=== PATIENT | female | born 1945 | race Caucasian/White ===

== ENCOUNTER 2020-01-28 11:00 | Inpatient (IN) | payer MEDICARE, OTHER ==
[~2020-01-28] VITALS: Ht 154.9 cm; Wt 88.5 kg
[~2020-01-28 11:00] MED LIST: BISACODYL 10 MG SUPP (DULCOLAX) PR PRN; DOCUSATE SODIUM 100 MG (COLACE) CAP PO PRN; ENOXAPARIN 40 MG/0.4 ML (LOVENOX) SYR SC SCH; FLEET ENEMA ADULT 1 EA BTL PR PRN; LACTULOSE SYRUP 10GM/15ML (ENULOSE) 30ML UDC PO PRN; LOPERAMIDE 2 MG (IMODIUM) TABLET PO PRN; diphenhydrAMINE 25 MG TAB (BENADRYL) PO PRN; guaiFENesin/CODEINE (ROBITUSSIN AC) 10ML UDC PO PRN
--- NOTE | 2020-01-28 11:00 | NUR ---
Pt admitted to room 232, with an admitting diagnosis of Critical Illness Myopathy from [facility], via w/c christy accompanied by christy enrique, PT/OT. CHAVO JEAN introduced to surroundings, call light, bed controls, phone, TV, temperature control, lights, meal times, smoking policy, visitor policy, side rail policy, bathrooms and showers. Patient Rights provided to patient in the handbook. CHAVO JEAN verbalizes understanding that [facility] is not responsible for the loss or damage to any personal effects or valuables that are kept in the patients posession during their hospitalization. The following Patient Care Plans were discussed with the pt: Discharge Planning, Impaired Mobility, Self Care Deficit, Potential for fall/injury. CHAVO JEAN verbalizes understanding of Interdisciplinary Patient Education. Patient and/or family were informed about the Rapid Response Team and its purpose. Patient received Patient Rights Booklet, which includes Privacy Act Statement and Data Collection Information Summary.
--- NOTE | 2020-01-28 12:25 | Occupational Therapy Eval ---
OT Evaluation-General/PLF Medical Diagnosis Admission Date Jan 28, 2020 at 11:00 Medical Diagnosis: critical illness myopathy Onset Date: Dec 09, 2019 Therapy Diagnosis Therapy Diagnosis: Critical illness myopathy Referral Physician: Lilly Henriquez Reason: Evaluation/Treatment Medical History Pertinent Medical History: Arthritis, GERD, HTN Additional Medical History breast cancer, anxiety/depression, hyperthyroidism, malignant neoplasm, multiple lung nodules, R breast lumpectomy Current History 12/09/2019 diagnosed with COVID-19, Admitted to [facility] 12/10 with c/o SOB, diarrhea, loss of appetite, productive cough. 12/14 intubated. Transferred to [place] for vent weaning, extubated 12/28/2019. Pt transferred to [facility] 02/08/2020 for continued medication management and skilled therapies. Social History Home: Single Level Current Living Status: Spouse Entry Into Home: Stairs With Railing Steps Into Home: 3 ADL-Prior Level of Function SCALE: Activities may be completed with or without assistive devices. 6-Zrmhziwsgp-heseheo completes the activity by him/herself with no assistance from a helper. 5-Set-up or Clean-up Assistance-helper sets up or cleans up; patient completes activity. [place] assists only prior to or following the activity. 4-Supervision or Touching Assistance-helper provides verbal cues and/or touching/steadying and/or contact guard assistance as patient completes activity. Assistance may be provided throughout the activity or intermittently. 3-Partial/Moderate Assistance-helper does LESS THAN HALF the effort. [place] lifts, holds or supports trunk or limbs, but provides less than half the effort. 2-Substantial/Maximal Assistance-helper does MORE THAN HALF the effort. [place] lifts or holds trunk or limbs and provides more than half the effort. 5-Sncrmglwv-tlvmhx does ALL the effort. Patient does none of the effort to complete the activity. Or, the assistance of 2 or more helpers is required for the patient to complete the activity. If activity was not attempted, code reason: 7-Patient Refused. 9-Not Applicable-not attempted and the patient did not perform the activity before the current illness, exacerbation or injury. 10-Not Attempted due to Environmental Limitations-(lack of equipment, weather restraints, etc.). 88-Not Attempted due to Medical Conditions or Safety Concerns. ADL PLOF Comments Pt indicates she was independent with all ADLS and functional mobility at PLOF without AD/AE. She indicates she owns a bath chair for the tub but prefers to get down into the bath and soak. 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 Pt indicates pain in back durin g session but does not verbalize. Mental Status/Objective Patient Orientation: Person, Place, Time, Situation Current Glasses/Contacts: No Hearing Aids: No Dentures/Partials: No Hand Dominance: Right Upper Extremity ROM BUE shoulder flexion to approx 90 degrees Upper Extremity Coordination WFL Upper Extremity Sensation WFL, pt denies tingling/numbness Upper Extremity Strength grossly 3/5 BUES ADL-Treatment Eating (QC): 6 (Pt reports independent with lunch.) Oral Hygiene (QC): 5 (based on clinical judgement, pt would require set up assistance with task.) Shower/Bathe Self (QC): 2 (Pt washed UEs, chest and abdomen, required assistance with periarea, LEs, and buttocks.) Upper Body Dressing (QC): 3 (Min A donning/doffing puller out shirt.) Lower Body Dressing (QC): 1 (total assist donning/doffing pants/underwear at bed level) On/Off Footwear (QC): 1 (pt required total assist donning/doffing footwear.) Toileting Hygiene (QC): 1 (based on clinical judgement, pt would require assistance managing clothing and performing hygiene.) Other Treatments 1110--1120: OT evaluation complete, OT educated pt on purpose and benefit of OT, she verbalized understanding. Pt provided information about PLOF and home set up and participated in UE screen. 1995-1230: OT/PT cotreat due to skill of 2 clinicians required which a ict support technicians could not perform in order to coordinate UE/LE with tasks, and due to pt's limitations in functional strength, endurance, mobility. OT focused on UE placement, cues for sequencing and safety and assistance with transfers while PT focused on LE placement, gross overall movements, and transfers. PT assisted pt with stand at parallel bars, x2 trials. Pt able to lift buttocks from chair but unable to fully stand. Pt then self-propelled w/c from therapy gym to her room, assistance with turning w/c, rest breaks along the way. Pt completed slide board transfer from w/c to bed, then assisted supine. Post Tx, pt laying in bed, call light in reach and all needs met. [id number] OT/PT cotreat due to skill of 2 clinicians required which a ict support technicians could not perform in order to coordinate UE/LE with tasks, and due to pt's limitations in functional strength, endurance, mobility. OT focused on ADLs, UE placement, cues for sequencing and safety and assistance with transfers while PT focused on LE placement, gross overall movements, and transfers. Pt transferred supine to sit EOB, then completed SB transfer to recliner. Pt completed upper body dressing and sponge bath of upper body, then transferred back to bed via SB. Pt then performed lower body bathing and dressing at bed level. OT assisted pt with washing hair using shower cap. Post tx, pt laying in bed, call light in reach and all needs met. Slide board transfers Max A, supine <-> sit max A, sit <-> stand max A, SPT max A. Education OT Patient Education: Correct positioning, Energy conservation, Modified ADL techniques, Progress toward Goal/Update tx plan, Purpose of tx/functional activities, Rehab process, Safety issues, Transfer techniques Teaching Recipient: Patient Teaching Methods: Discussion Response to Teaching: Verbalize Understanding OT Short Term Goals Short Term Goals Time Frame: Feb 09, 2020 Toileting hygiene: 3 Lower body dressin Putting on/taking off footwear: 3 OT Deburring Technician Goals Deburring Technician Goals Time Frame: Feb 18, 2020 Eating (QC): 6 Oral Hygiene (QC): 6 Toileting Hygiene (QC): 6 Shower/Bathe Self (QC): 6 Upper Body Dressing (QC): 6 Lower Body Dressing (QC): 6 On/Off Footwear (QC): 6 Additional Goals: 1-Demonstrate ADL Tasks, 2-Verbalize Understanding, 3- ImproveStrength/Renny 1=Demonstrate adherence to instructed precautions during ADL tasks. 2=Patient will verbalize/demonstrate understanding of assistive devices/modifications for ADL. 3=Patient will improve strength/tolerance for activity to enable patient to perform ADL's. OT Education/Plan Problem List/Assessment Assessment: Decreased Activ Tolerance, Decreased UE Strength, Impaired Bed Mo bility, Impaired Funct Balance, Impaired I ADL's, Impaired Self-Care Skills Discharge Recommendations Plan/Recommendations: Continue POC Treatment Plan/Plan of Care Patient would benefit from OT for education, treatment and training to promote independence in ADL's, mobility, safety and/or upper extremity function for ADL's. Plan of Care: ADL Retraining, Functional Mobility, Group Exercise/Act as Ind, UE Funct Exercise/Act Treatment Duration: Feb 18, 2020 Frequency: At least 5 of 7 days/Wk (IRF) Estimated Hrs Per Day: 1.5 hours per day Agreement: Yes Rehab Potential: Fair Time/GCodes Start Time: 11:10 (0013-0850) Stop Time: 13:55 ([id number]) Total Time Billed (hr/min): 90 Billed Treatment Time 9405-5505 OT eval (10'), 2825-3025 OT/PT cotreat (40') 1, EVM (10'), FA 2 (40') 1334-0606 OT/PT cotreat (40') 1, ADL 3 (40') ISIDRO MACIEL OT Jan 28, 2020 12:25
[2020-01-28 12:37] VITALS: BP 135/66
--- NOTE | 2020-01-28 13:04 | PM&R Post Admission Assessment ---
PM&R Date of Visit: Jan 28, 2020 Time of Visit: 12:00 History of Present Illness CC: Critical illness debility from COVID-19 HPI: This is a 74yoWF clinic patient of Dr Bradley Faith who presents to the IRF in need of aggressive PT and OT to regain function of ambulation and ADL's in order to return home to live independently with her . PLOF was independent and no use of O2. She has been weaned from O2 from [place] for the past 1 week but noted during exertion with therapies her O2 sat decreased to 78%. I have reviewed Ronda chart and spoke to Dr Foster. Ronda note: As per HPI by Dr Alfred, "Fadumo Hua a 74 y.o.Whitefemalea patient of Prosper Faith DOwho is being admitted through the emergency room with chief complaint of SOB. Patient is a 74-year-old female with past medical history of essential hypertension, obesity, Graves' disease, paroxysmal atrial tachycardia, degenerative joint disease. Patient was diagnosed withCOVIDinfection on 12/09/2019. For the past 3 to 4 days she reports decreased appetite along withwatery diarrhea. She has cough productive of yellow phlegm along with shortness of breath that hasbeen progressively worsening.EMS noted that her SpO2 was in the 70s when they arrived.She denies fever, chills, nausea, vomiting, chest pain, abdominal pain, loss of consciousness, ground-level fall, dysuria, dizziness. States she has been taking all his medications prescribed. She lives with her at home currently also has Covid infection. She is able to perform ADLs without any assistanceat baseline. Denies history of diabetes mellitus noncritical disease. She does not wear oxygen at baseline. The patient got transferred to ICU on 12/12 She got intubated on 12/14 When I assumed service on 12/21, preparations had been made for her transfer to [place] She is being transferred there today in stable condition on the ventilator discussed withDr Lyles Pneumonia due to COVID-19 virus Active Problems: Paroxysmal atrial tachycardia Graves disease - methimazole Rx Obesity (BMI 30-39.9) Essential hypertension Acute respiratory failure KALEE (acute kidney injury) Normal anion gap metabolic acidosis Acute diarrhea Lactic acid acidosis Chronic heart failure with preserved ejection fraction 2018 novel coronavirus disease (COVID-19) DC meds: START taking these medications chlorhexidine gluconate0.12 % Mouthwash 5 mL by Mouth/Throat route 2 times daily. Signed by: Bacilio Gallegos MD Quantity: Refills: 0 Dexamethasone Sod Phosphate-PF10 mg/mL Solution Commonly known as: DECADRON Inject 0.6 mL (6 mg) by intraveous injection daily. Start taking on: December 25, 2019 Signed by: Bacilio Gallegos MD Quantity: Refills: 0 mg/0.4 mL injection Commonly known as: LOVENOX Inject 0.4 mL (40 mg) by subcutaneous injection every 12 hours. Signed by: Bacilio Gallegos MD Quantity: Refills: 0 ixtrgrwlkp84 mg/mL Solution Commonly known as: LASIX Inject 4 mL (40 mg) by intraveous injection two times daily, 7 hours apart for 1 day. Signed by: Bacilio Gallegos MD Quantity: 1 mL Refills: 0 Replaces: furosemide 20 mg tablet hswspvpeR97 mg/4 mL (5 mg/mL) Syringe Commonly known as: NORMODYNE/TRANDATE Inject 2 mL (10 mg) by intraveous injection every 4 hours as needed (SBP greater than 160). Signed by: Bacilio Gallegos MD Quantity: Refills: 0 lactobacillus rhamnosus (GG)10 billion cell Capsule Commonly known as: CULTURELLE Take 1 Capsule by mouth 2 times daily. Signed by: Bacilio Gallegos MD Quantity: Refills: 0 loperamide2 mg capsule Commonly known as: IMODIUM Take 1 Capsule (2 mg) by mouth 4 times daily as needed for Diarrhea/Loose Stools. Signed by: Bacilio Gallegos MD Quantity: Refills: 0 melatonin3 mg Tablet Take 1 Tablet (3 mg) by mouth 2 times daily. Signed by: Bacilio Gallegos MD Quantity: Refills: 0 naloxone0.4 mg/mL Solution Commonly known as: NARCAN Inject 0.25 mL (0.1 mg) by intraveous injection see administration instructions. Signed by: Bacilio Gallegos MD Quantity: Refills: 0 ondansetron4 mg/2 mL Solution Commonly known as: ZOFRAN Inject 2 mL (4 mg) by intraveous injection every 6 hours as needed for Nausea/Emesis. Signed by: Bacilio Gallegos MD Quantity: Refills: 0 oxyCODONE5 mg tablet Commonly known as: ROXICODONE Take 1 Tablet (5 mg) by mouth every 8 hours as needed for Pain. Max Daily Amount: 15 mg Signed by: Bacilio Gallegos MD Quantity: Refills: 0 ibunxhvntxdo61 mg Recon Soln Commonly known as: PROTONIX Inject 40 mg by intraveous injection daily. Start taking on: December 25, 2019 Signed by: Bacilio Gallegos MD Quantity: Refills: 0 prochlorperazine yttvdnr74 mg tablet Commonly known as: COMPAZINE Take 1 Tablet (10 mg) by mouth every 6 hours as needed for Nausea/Emesis. Signed by: Bacilio Gallegos MD Quantity: Refills: 0 xyihkoii70 mg/mL Emulsion Commonly known as: DIPRIVAN Inject 0-5.999 mg/min by intraveous injection continuously. Signed by: Bacilio Gallegos MD Refills: 0 mkibrxkelO62 mg tablet Commonly known as: VIAGRA Take 1 Tablet (25 mg) by mouth 2 times daily. Signed by: Bacilio Gallegos MD Quantity: Refills: 0 w CHANGE how you take these medications lslyvddxyt953 mg tablet Commonly known as: SKELAXIN What changed: See the new instructions. Take 1 Tablet (800 mg) by mouth 3 times daily as needed for Spasm. Signed by: Bacilio Gallegos MD Quantity: Refills: 0 CONTINUE taking these medications cholecalciferol (Vitamin D3)25 mcg (1,000 unit) Capsule Commonly known as: VITAMIN D3 Take 5,000 Units by mouth daily . Refills: 0 colestipoL1 gram tablet Commonly known as: COLESTID TAKE 1 TABLET BY MOUTH TWICE DAILY Signed by: Prosper Faith DO Quantity: 180 Tablet Refills: 2 mcawuohirpqsmfl70 mg tablet Commonly known as: FLEXERIL Take 1 Tablet (10 mg) by mouth 2 times daily. Signed by: Prosper Faith DO Quantity: 60 Tablet Refills: 5 Mofnryhnj757 mg tablet Take 600 mg by mouth 3 times daily. 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) Alcohol Use: Denies Use Smoking Status: Never a Smoker Past Medical History Surgeries: Abdominal, Appendectomy, Breast, Section, Eye Surgery, Tonsillectomy Respiratory: Pneumonia COVID-19 12/11/19 Cardiac: High Cholesterol, Hypertension Genitourinary: Bladder Infection Gastrointestinal: Gastroesophageal Reflux Musculoskeletal: Arthritis, Chronic Back Pain Endocrine: Hypothyroidsim Cancer: Breast What Type of Treatment Did You: Surgical Intervention Psychosocial: Anxiety, Depression Self Care: Independent Functional Cognition: Independent 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 (Pt reports independent with lunch.) PM&R Allergy/Meds/Data Review Allergies Coded Allergies: Sulfa (Sulfonamide Antibiotics) (Verified Allergy, Unknown, 01/28/20) amoxicillin (Verified Allergy, Unknown, 01/28/20) clavulanic acid (Verified Allergy, Unknown, 01/28/20) codeine (Verified Allergy, Unknown, 01/28/20) diazepam (Verified Allergy, Unknown, 01/28/20) hydrocodone (Verified Allergy, Unknown, 01/28/20) iodine (Verified Allergy, Unknown, 01/28/20) sulfamethoxazole (Verified Allergy, Unknown, 01/28/20) trimethoprim (Verified Allergy, Unknown, 01/28/20) Uncoded Allergies: MSG (Adverse Reaction, Severe, Diarrhea, 01/28/20) abdominal cramping, severe diarrhea Home Medications Scheduled Cholecalciferol (Vitamin D3) (Vitamin D3), 125 MCG PO DAILY, (Reported) Cyanocobalamin (Vitamin B-12) (Vitamin B-12), 1,000 MCG PO DAILY, (Reported) Folic Acid/Vitamin B Comp W-C (Nephro-Arben Tablet), 0.8 MG PO DAILY, (Reported) Gabapentin (Neurontin), 600 MG PO TID, (Reported) Lactobacillus Acidophilus/Pect (Acidophilus-Pectin Capsule), 2 EACH PO BID, (Reported) Lidocaine (Lidocaine 5% Patch), 1 EACH TP Q12H, (Reported) Nifedipine (Procardia Xl), 30 MG PO DAILY, (Reported) Pantoprazole Sodium (Protonix), 40 MG PO BID, (Reported) Sertraline HCl (Sertraline HCl), 50 MG PO HS, (Reported) Sildenafil Citrate (Revatio), 10 MG PO BID, (Reported) Scheduled PRN Acetaminophen (Acetaminophen), 650 MG RC Q6H PRN for PAIN-MILD (1-4) OR TEMPATURE, (Reported) Hydrocortisone Acetate (Anucort-Hc), 25 MG RC Q8H PRN for HEMMORRHOID DISCOMFORT, (Reported) Oxycodone Hcl (Oxyir Tablet), 5 MG PO Q8H PRN for PAIN-SEVERE (8-10), (Reported) Polyvinyl Alcohol/Povidone (Artificial Tears Drops), 2 DROPS OU PRN PRN for DRY EYES, (Reported) Sennosides/Docusate Sodium (Senna S Tablet), 1 EACH PO DAILY PRN for CONSTIPATION-6TH LINE, (Reported) Current Medications Current Medications Reviewed Review of Systems Constitutional: see HPI, dizziness, malaise, weakness EENTM: no symptoms reported Respiratory: dyspnea on exertion, short of breath Cardiovascular: no symptoms reported Gastrointestinal: no symptoms reported Genitourinary: no symptoms reported Musculoskeletal: back pain Skin: no symptoms reported Psychiatric/Neurological: Anxiety, Depressed All Other Systems Reviewed Negative Unless Noted: Yes Physical Exam Physical Exam Vital Signs Vital Signs - First Documented 01/28/20 12:37 Temp 37.1 Pulse 116 Resp 20 B/P (MAP) 135/66 (89) Pulse Ox 94 O2 Delivery Room Air Capillary Refill : Height, Weight, BMI Height: '" Weight: lbs. oz. kg; BMI Method: General Appearance: No Apparent Distress, WD/WN, Chronically ill Eyes: Bilateral Eye Normal Inspection, Bilateral Eye PERRL HEENT: PERRL/EOMI, Normal ENT Inspection, Pharynx Normal Neck: Full Range of Motion, Normal Inspection, Non Tender, Supple, Carotid Bruit Respiratory: Chest Non Tender, Lungs Clear, No Accessory Muscle Use, No Respiratory Distress, Decreased Breath Sounds Cardiovascular: Regular Rate, Rhythm, No Edema, No Gallop, No JVD, No Murmur, Normal Peripheral Pulses Gastrointestinal: Normal Bowel Sounds, No Organomegaly, No Pulsatile Mass, Non Tender, Soft Back: Normal Inspection, No CVA Tenderness, No Vertebral Tenderness Extremity: Normal Capillary Refill, Normal Inspection, Normal Range of Motion, Non Tender, No Calf Tenderness, No Pedal Edema Neurologic/Psychiatric: Alert, Oriented x3, Normal Mood/Affect, moving consultant II-XII Norm as Tested, Motor Weakness (3/5 lower extremities, 4/5 upper) Skin: Normal Color, Warm/Dry Lymphatic: No Adenopathy PM&R Medical Assessment & Plan REHAB/MEDICAL ASSESSMENT AND PLAN: REHAB IMPAIRMENT GROUP: Myopathy ETIOLOGIC DIAGNOSIS: Myopathy The comorbidities that impact the patients function and/or functional outcome by: severe lower extremity myopathy, hypoxia with exertion, advanced age REHAB PLAN: The patient is being admitted to our comprehensive inpatient rehabilitation facility and can tolerate the intensity of service consisting of at least: 180 minutes of therapy a day, 5 out of 7 days a week Rehab treatment will consist of: PT OT will focus on regaining function and ambulatory skills with increase ADL ability in order to return home The patient/family has a good understanding of our discharge process and will benefit from an interdisciplinary inpatient rehabilitation program. The patient has potential to make improvement and is in need of at least two of the following multidisciplinary therapies including but not limited to physical, occupational, speech, and prosthetics and orthotics. Additionally the patient will need services from respiratory, nutritional services, wound care, psychology, etc. (Customize this to each patient). Given the patients complex condition and risk of further medical complications, rehabilitation services cannot be safely or effectively provided at a lower level of care such as a [facility] facility. BARRIERS TO DISCHARGE: Weakness ESTIMATED LOS: 10 days DISPOSITION: Home RELEVANT CHANGES SINCE PREADMISSION SCREENING: I have compared the patients medical and functional status at the time of the preadmission screening and there are: no changes PROGNOSIS: Good REHABILITATION GOALS: 1.PT OT will focus on regaining function and ambulatory skills with increase ADL ability in order to return home All the above goals were reviewed with the patient and he/she is in agreement. By signing this document, I acknowledge that I have personally performed a full physical examination on this patient within 24 hours of admission to this inpatient rehabilitation facility and have determined the patient to be able to tolerate the above course of treatment at an intensive level for a reasonable period of time. I will be completing a detailed individualized Plan of Care for this patient by day #4 of the patients stay based upon the Preadmission Screen, the Post-Admission Evaluation, and the therapy evaluations. Admission Dx/Comorbidities: (1) Myopathy ICD Codes: G72.9 - Myopathy, unspecified (2) COVID-19 ICD Codes: U07.1 - COVID-19 (3) GERD (gastroesophageal reflux disease) ICD Codes: K21.9 - Gastro-esophageal reflux disease without esophagitis (4) Hypoxia ICD Codes: R09.02 - Hypoxemia (5) HX: breast cancer ICD Codes: Z85.3 - Personal history of malignant neoplasm of breast (6) Anxiety ICD Codes: F41.9 - Anxiety disorder, unspecified (7) Depression ICD Codes: F32.9 - Major depressive disorder, single episode, unspecified Assessment/Plan Assessment and Plan Assess & Plan/Chief Complaint Assessment: Critical illness debility from COVID-19 dx 12/11/19 OA h/o breast cancer Allergic rhinitis HTN GERD Depression Lung nodules [facility] 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 since usp stable Plan: IRF protocol Wean O2 Pain meds BM regimen JARRELL HURD DO Jan 28, 2020 13:04
--- NOTE | 2020-01-28 13:10 | Physical Therapy Evaluation ---
PT Evaluation-General Medical Diagnosis Admission Date Jan 28, 2020 at 11:00 Medical Diagnosis: critical illness myopathy Onset Date: Dec 09, 2019 Therapy Diagnosis Therapy Diagnosis: impaired mobility, strength, endurance Referral Physician: Mely Carr DO Reason for Referral: Evaluation/Treatment Medical History Pertinent Medical History: Arthritis, GERD, HTN Reviewed History: Yes Social History Home: Single Level Current Living Status: Spouse Entry Into Home: Stairs With Railing PT Steps Into Home: 3 Prior Prior Level of Function SCALE: Activities may be completed with or without assistive devices. 4-Dasxmwgeui-ttmyzfn completes the activity by him/herself with no assistance from a helper. 5-Set-up or Clean-up Assistance-helper sets up or cleans up; patient completes activity. [place] assists only prior to or following the activity. 4-Supervision or Touching Assistance-helper provides verbal cues and/or touching/steadying and/or contact guard assistance as patient completes activity. Assistance may be provided throughout the activity or intermittently. 3-Partial/Moderate Assistance-helper does LESS THAN HALF the effort. [place] lifts, holds or supports trunk or limbs, but provides less than half the effort. 2-Substantial/Maximal Assistance-helper does MORE THAN HALF the effort. [place] lifts or holds trunk or limbs and provides more than half the effort. 6-Vreklurzm-rqefkc does ALL the effort. Patient does none of the effort to complete the activity. Or, the assistance of 2 or more helpers is required for the patient to complete the activity. If activity was not attempted, code reason: 7-Patient Refused. 9-Not Applicable-not attempted and the patient did not perform the activity before the current illness, exacerbation or injury. 10-Not Attempted due to Environmental Limitations-(lack of equipment, weather restraints, etc.). 88-Not Attempted due to Medical Conditions or Safety Concerns. Bed Mobility: 6 Transfers (B,C,W/C): 6 Gait: 6 Stairs: 6 Indoor Mobility (Ambulation): Independent Stairs: Independent PT Evaluation-Current Subjective Patient in WC pre tx, agrees to PT, has no complains of pain at rest, will be co-treating with OT for part of tx due to poor patient mobility, strength, endurance, safety and decrease risk of falls, coordinate UE and LE during activity. Patient's O2 was measured and was 85% but came up to 92% with purse lip breathing. Pt/Family Goals to be independent at home Objective Patient Orientation: Person, Place, Situation ROM/Strength ROM Lower Extremities WNL Strength Lower Extremities LLE (hip flexion 3-/5, knee flexion 3/5, knee extension 3-/5, dorsiflexion 3/5), RLE (hip flexion 3-/5, knee flexion 3/5, knee extension 3-/5, dorsiflexion 3/5) Sensory Hearing: Functional Hand Dominance: Right Sensation Right Lower Extremit: Intact Sensation Left Lower Extremity: Intact Transfers Roll Left & Right (QC): 3 Sit to Lying (QC): 2 Lying to Sitting/Side of Bed(Q: 2 Sit to Stand (QC): 2 Chair/Hcv-je-Kuldd Xfer(QC): 2 Toilet Transfer (QC): 2 Car Transfer (QC): 1 Patient performs rolling with min assist, supine <-> sit max assist, sit <-> stand and transfers with max assist. Patient can perform either a stand pivot or sliding board transfer with max assist. Stood in the parallel bars x2 with max assist for only a few seconds each time. Gait Does the Patient Walk?: No and Walking Goal IS indicated Walk 10 feet (QC): 88 Walk 50 ft with 2 Turns(QC): 88 Walk 150 ft (QC): 88 Walking 10ft/uneven surface-QC: 88 Wheelchair Training Does the Pt Use a Wheelchair?: Yes Distance: 50'x2 Wheel 50 ft with 2 turns (QC): 3 Wheel 150 ft (QC): 88 Type of Wheelchair: Manual Stairs 1 Step (curb) (QC): 88 4 Steps (QC): 88 12 Steps (QC): 88 Balance Sitting Static: Fair Sitting Dynamic: Fair Standing Static: Poor Standing Dynamic: Poor Picking up an Object (QC): 88 Assessment/Needs Patient in bed post tx with nurse call, phone, tray, all needs met. Patient has very weak LE's and trunk, outside of therapy she will need a betsey or sit to stand for transfers. Rehab Potential: Fair PT Short Term Goals Short Term Goals Time Frame: Feb 04, 2020 Roll Left & Right: 4 Sit to lyin Lying to sitting on side of be: 3 Sit to stand: 3 Chair/kjw-ns-lopfk transfer: 3 Walk 10 feet: 3 PT Assisted Goals Joint Finisher Goals PT Assisted Goals Time Frame: Feb 18, 2020 Roll Left & Right (QC): 6 Sit to Lying (QC): 4 Lying-Sitting on Side/Bed(QC): 4 Sit to Stand (QC): 3 (Shelby) Chair/Nxy-qf-Zvbhe Xfer(QC): 3 (Shelby) Toilet Transfer (QC): 3 (Shelby) Car Transfer (QC): 3 (Shelby) Does the Patient Walk: No and Walking Goal IS indicated Walk 10 feet (QC): 3 Walk 50ft with 2 Turns (QC): 3 Walk 150 ft (QC): 88 Walking 10ft on Uneven Surface: 88 1 Step (curb) (QC): 88 4 Steps (QC): 88 12 Steps (QC): 88 Picking up an Object (QC): 88 Wheel 50 feet with 2 turns (QC: 6 Wheel 150 feet: 6 PT Plan Problem List Problem List: Activity Tolerance, Functional Strength, Safety, Balance, Gait, Transfer, Bed Mobility, ROM Treatment/Plan Treatment Plan: Continue Plan of Care Treatment Plan: Bed Mobility, Education, Functional Activity Renny, Functional Strength, Group Therapy, Gait, Safety, Therapeutic Exercise, Transfers Treatment Duration: Feb 18, 2020 Frequency: At least 5 of 7 days/Wk (IRF) Estimated Hrs Per Day: 1.5 hours per day Patient and/or Family Agrees t: Yes Safety Risks/Education Patient Education: Transfer Techniques, Correct Positioning, W/C Management, Safety Issues Teaching Recipient: Patient Teaching Methods: Demonstration, Discussion Response to Teaching: Reinforcement Needed Discharge Recommendations Plan Patient will perform bed mobility and transfer training, balance and endurance training, functional strengthening, stair training, gait training, and education, to improve functional mobility and independence at home. Therapy Discharge Recommendati: Scheduled Assistance, Home & Family Time/GCodes Time In: 1100 Time Out: 1200 Total Billed Treatment Time: 50 Total Billed Treatment 1 visit EVM 10' FA 40' (only charge 2 units) PT eval from [id number], OT eval from [id number], co-treat from [id number]. PT performed bed mobility and transfers, WC mobility, OT performed UE positioning and safety, assist with transfers. MAYTE BENAVIDEZ PT Jan 28, 2020 13:10
[2020-01-28] MEDS ORDERED: LIDO700A45 TP (13:53)
[2020-01-28] MEDS ORDERED: CALC-250 PO (13:53)
[2020-01-28] MEDS ORDERED: OXC5T PO (13:53)
[2020-01-28] MEDS ORDERED: NIFE30TA2 PO (13:53)
[2020-01-28] MEDS ORDERED: POLY15DR14 OU (13:53)
[2020-01-28] MEDS ORDERED: CYAN-41 PO (13:53)
[2020-01-28] MEDS ORDERED: LACT1CAP7 PO (13:53)
[2020-01-28] MEDS ORDERED: PANT40TA2 PO (13:53)
[2020-01-28] MEDS ORDERED: FOLI0.8T2 PO (13:53)
[2020-01-28] MEDS ORDERED: HYDR25SU8 RC (13:53)
[2020-01-28] MEDS ORDERED: SENN-145 PO (13:53)
[2020-01-28] MEDS ORDERED: SILD20TA PO (13:53)
[2020-01-28] MEDS ORDERED: SERT50TA9 PO (13:53)
[2020-01-28] MEDS ORDERED: GABA300C PO (13:53)
[2020-01-28] MEDS ORDERED: ACET650S15 RC (13:53)
--- NOTE | 2020-01-28 13:58 | NUR ---
THE MED REC HAS BEEN ENTERED USING THE DISCHARGE ORDERS FROM [facility]. AFTER MEDICATIONS ARE CONTINUED I WILL SPEAK WITH THE PT AND MAKE ANY CHANGES TO THE MED REC/NOTES NEEDED
--- NOTE | 2020-01-28 14:11 | Physical Therapy Daily Note ---
PT Daily Note-Current Subjective Patient in bed pre tx, agrees to PT, has no complaints of pain, will be co- treating with OT due to poor patient mobility, strength, endurance, sitting balance, safety and decrease fall risk, coordinate UE and LE during activity. Appearance Patient in bed post tx with nurse call, phone, tray, all needs met. Mental Status Patient Orientation: Person, Place, Situation Transfers SCALE: Activities may be completed with or without assistive devices. 6-Wxtnofqkij-oixqcns completes the activity by him/herself with no assistance from a helper. 5-Set-up or Clean-up Assistance-helper sets up or cleans up; patient completes activity. [place] assists only prior to or following the activity. 4-Supervision or Touching Assistance-helper provides verbal cues and/or touching/steadying and/or contact guard assistance as patient completes activity. Assistance may be provided throughout the activity or intermittently. 3-Partial/Moderate Assistance-helper does LESS THAN HALF the effort. [place] lifts, holds or supports trunk or limbs, but provides less than half the effort. 2-Substantial/Maximal Assistance-helper does MORE THAN HALF the effort. [place] lifts or holds trunk or limbs and provides more than half the effort. 8-Tdgathahn-hobkpl does ALL the effort. Patient does none of the effort to complete the activity. Or, the assistance of 2 or more helpers is required for the patient to complete the activity. If activity was not attempted, code reason: 7-Patient Refused. 9-Not Applicable-not attempted and the patient did not perform the activity before the current illness, exacerbation or injury. 10-Not Attempted due to Environmental Limitations-(lack of equipment, weather restraints, etc.). 88-Not Attempted due to Medical Conditions or Safety Concerns. Roll Left & Right (QC): 3 Sit to Lying (QC): 2 Lying to Sitting/Side of Bed(Q: 2 Chair/Hcb-zr-Tofkw Xfer(QC): 2 Patient supine to sit and then slide board transfer to recliner, bathed upperbody, slide board back to bed, sit to supine and then remove pants and bathe lower body and then put brief back on. Treatments PT worked on bed mobility and transfers, assist with positioning and safety during bathing, OT worked on bathing and dressing and UE positioning and safety during activity. Assessment Current Status: Fair Progress slightly improved sling board transfer but still max assist PT Short Term Goals Short Term Goals Time Frame: Feb 04, 2020 Roll Left & Right: 4 Sit to lyin Lying to sitting on side of be: 3 Sit to stand: 3 Chair/beb-hs-ytirt transfer: 3 Walk 10 feet: 3 PT Senior Care Goals Photovoltaic Installer Goals PT Senior Care Goals Time Frame: Feb 18, 2020 Roll Left & Right (QC): 6 Sit to Lying (QC): 4 Lying-Sitting on Side/Bed(QC): 4 Sit to Stand (QC): 3 (Shelby) Chair/Pwt-lm-Ddhmb Xfer(QC): 3 (Shelby) Toilet Transfer (QC): 3 (Shelby) Car Transfer (QC): 3 (Shelby) Does the Patient Walk: No and Walking Goal IS indicated Walk 10 feet (QC): 3 Walk 50ft with 2 Turns (QC): 3 Walk 150 ft (QC): 88 Walking 10ft on Uneven Surface: 88 1 Step (curb) (QC): 88 4 Steps (QC): 88 12 Steps (QC): 88 Picking up an Object (QC): 88 Wheel 50 feet with 2 turns (QC: 6 Wheel 150 feet: 6 PT Plan Problem List Problem List: Activity Tolerance, Functional Strength, Safety, Balance, Gait, Transfer, Bed Mobility, ROM Treatment/Plan Treatment Plan: Continue Plan of Care Treatment Plan: Bed Mobility, Education, Functional Activity Renny, Functional Strength, Group Therapy, Gait, Safety, Therapeutic Exercise, Transfers Treatment Duration: Feb 18, 2020 Frequency: At least 5 of 7 days/Wk (IRF) Estimated Hrs Per Day: 1.5 hours per day Patient and/or Family Agrees t: Yes Safety Risks/Education Patient Education: Transfer Techniques, Correct Positioning, Safety Issues Teaching Recipient: Patient Teaching Methods: Demonstration, Discussion Response to Teaching: Reinforcement Needed Time/GCodes Time In: 1315 Time Out: 1355 Total Billed Treatment Time: 40 Total Billed Treatment 1 visit FA 40' MAYTE BENAVIDEZ PT Jan 28, 2020 14:11
--- NOTE | 2020-01-28 14:29 | ST Cognitive Linguistic Eval ---
Speech Evaluation-General Medical Diagnosis critical illness myopathy Onset Date: Dec 09, 2019 Therapy Diagnosis Therapy Diagnosis: Cognitive-communication Referral Referring Physician: Dr. Carr Medical History Pertinent Medical History: Arthritis, GERD, HTN Reviewed History: Yes Social History Current Living Status: Spouse Speech PLF-Current Status Prior Level of Function Patient lived at home with her where she was independent with all of her daily needs prior to her illness. Subjective Patient was pleasant and cooperative with the cognitive assessment. Language Eval: Auditory Comprehends Simple Yes/No Ques: Functional Indent/Objects Multiple Pinon: Functional Ident/Pics in Multiple Pinon: Functional Follows 1-Step Commands: Functional Follows Complex Directions: Functional Follows General Conversations: Functional Language Eval: Verbal Language Completes Spontaneous Greeting: Functional Produces Auto, Serial Info: Functional Imitates Simple Words/Phrases: Functional Word Finding: Functional Requests Basic Needs: Functional States Basic Personal Info: Functional Expresses Complex Ideas: Functional Objective Cognitive Domain Attention: WNL Memory: WNL Problem Solving: Functional Executive Functions: WNL Visuospatial Skills: WNL Composite Severity Rating: WNL Clock Drawing Severity Rating: WNL Objective Formal/Standardized Tests [facility] Mental Status ([facility]) Results 27/30, within normal limits Oral Motor/Speech Production Within Normal Limits Impression Patient is a pleasant 74 y/o female who was admitted to the ARU due to weakness from COVID-19. Patient was given the UMS with a score of 27/30 obtained. Patient's score does not indicate the need for further ST services. Speech Patient Assess Expression of Ideas/Wants: Expression (4) Understanding Verbal Content: Understands (4) Brief Interview-Mental Status: Yes Repetition of Three Words: Three (3) Temporal Orientation: Year: Correct (3) Temporal Orientation: Month: Accurate within 5 days(2) Temporal Orientation: Day: Correct (1) Recall : Wear to say "Sock": Yes, no cue required (2) Recall : Color: Yes, after cueing (1) Recall : Bed: Yes, no cue required (2) Memory/Recall Ability: Current season, That he or she is in a hsp/hsp unit Speech-Plan Patient/Family Goals Patient/Family Goals: Patient plans on returning to her home where she lives with her . Treatment Plan Speech Therapy Treatment Plan: Discontinue ST Frequency: 1 time per week Estimated Hrs Per Day: .5 hour per day Rehab Potential: Fair Barriers to Learning: Patient's recent illness Pt/Family Agrees to Plan: Yes Safety Risks/Education Teaching Recipient: Patient Teaching Methods: Discussion Response to Teaching: Verbalize Understanding Education Topics Provided: Safety within her room, communication of wants/needs Time Speech Therapy Time In: 14:00 Speech Therapy Time Out: 14:15 Total Billed Time: 15 Billed Treatment Time 1, ROLANDO Johnson Jan 28, 2020 14:29
[2020-01-28] MEDS: polyethylene glycoL POWDER 17 GM (MIRALAX) PACK PO SCH ×2 (14:53→20:57)
[2020-01-28] MEDS: DOCUSATE SODIUM 100 MG (COLACE) CAP PO SCH ×2 (14:53→20:57)
[2020-01-28] MEDS: SENNA W/DOCUSATE (SENOKOT S) TABLET PO SCH ×2 (14:53→20:57)
[2020-01-28] MEDS ORDERED: ENOXAPARIN 40 MG/0.4 ML (LOVENOX) SYR SC SCH (16:00)
--- NOTE | 2020-01-28 16:04 | NUR ---
Upon asking pt about her allergies, & asked if she is allergic to Acetaminophen ? Pt states, "no, I can take that, it doesn't help me much, but, I don't have any trouble w it." Pt denies anaphylactic reaction to any of her allergies, only nausea, abdominal discomfort. Addendum: 01/28/20 at 1609 by ALEM WU RN Cassia Deshpande in Pharmacy, & notified of above.
--- NOTE | 2020-01-28 16:15 | NUR ---
Call to LUIZ Farias at [facility], who I rec'd report from regarding pt this AM. Pt received Lovenox injection this AM at 0900 while there. Call placed to pharmacy, spoke carey Fountain, & notified of this.
[2020-01-28] MEDS ORDERED: SENNA W/DOCUSATE (SENOKOT S) TABLET PO PRN (17:00)
[2020-01-28] MEDS ORDERED: HYDROCORTISONE 25 MG SUPPOSITORY (ANUSOL HC) RC PRN (17:00)
[2020-01-28] MEDS ORDERED: ACETAMINOPHEN 650 MG SUPP (TYLENOL) RC PRN (17:00)
[2020-01-28] MEDS ORDERED: ARTIFICAL TEARS 0.4 ML UNIT DOSE (REFRESH PLUS) OU PRN (18:00)
[2020-01-28 18:40] VITALS: BP 135/66
[2020-01-28] MEDS: LIDOCAINE 4% (SALONPAS) PATCH TP SCH (18:55)
[2020-01-28 18:59] VITALS: BP 159/72
--- NOTE | 2020-01-28 19:26 | NUR ---
Call placed to Pharmacy, spoke carey Deshpande, regarding Acetaminophen still listed as an allergy. States that he had tried earlier to get it off, will try again. See earlier note that pt had stated that she took med w/o problems or adverse reactions.
--- NOTE | 2020-01-28 20:41 | NUR ---
Allevyn sacral patch placed to coccyx area for comfort/redness.
[2020-01-28] MEDS: LACTOBACILLUS ACIDOPHILUS (PROBIOTIC) CAPSULE PO SCH (20:56)
[2020-01-28] MEDS: GABAPENTIN 300 MG (NEURONTIN) CAP PO SCH (20:57)
[2020-01-28] MEDS: PANTOPRAZOLE 40 MG (PROTONIX) TAB PO SCH (20:57)
[2020-01-28] MEDS: SERTRALINE 50 MG (ZOLOFT) TABLET PO SCH (20:57)
[2020-01-28] MEDS: MELATONIN 3 MG TABLET PO PRN (21:11)
[2020-01-29] MEDS: LIDOCAINE 4% (SALONPAS) PATCH TP SCH ×2 (04:08→17:39)
[2020-01-29 05:28] VITALS: BP 123/68
[2020-01-29 06:42] LABS: ALBUMIN 2.9 GM/DL (3.2-4.5); CHLORIDE 108 MMOL/L (98-107); POTASSIUM 4.4 MMOL/L (3.6-5.0); SODIUM 141 MMOL/L (135-145)
[2020-01-29 06:44] LABS: CALCIUM 8.9 MG/DL (8.5-10.1)
[2020-01-29 06:45] LABS: GLUCOSE 96 MG/DL (70-105); TOTAL PROTEIN 5.1 GM/DL (6.4-8.2)
[2020-01-29 06:46] LABS: CARBON DIOXIDE 22 MMOL/L (21-32)
[2020-01-29 06:47] LABS: BILIRUBIN,TOTAL 0.6 MG/DL (0.1-1.0)
[2020-01-29 06:48] LABS: ALKALINE PHOSPHATASE 27 U/L (40-136); CREATININE SERUM 0.66 MG/DL (0.60-1.30); GFR ESTIMATED > 60
[2020-01-29 06:50] LABS: BUN/CREATININE RATIO 11
[2020-01-29 06:51] LABS: ALANINE AMINOTRANSFERASE 12 U/L (0-55)
--- NOTE | 2020-01-29 07:08 | PM&R Progress Note ---
Subjective HPI/CC On Admission Date Seen by Provider: Jan 29, 2020 Time Seen by Provider: 12:30 Subjective/Events-last exam Severe right knee pain 10/ today so adjusted her pain meds and xray noted severe OA Dr Scott usually gives her a right knee injections every 3 months and she is overdue I will try to have ortho give pain injection Friday Tapazole not on her list and she has Graves disease she states O2 at 80% so will maintain 2L/min O2 Checking iron level since hgb 9.1 Adding TSH FT4 to labs BM today loose Review of Systems General: Fatigue, Malaise Pulmonary: Dyspnea Musculoskeletal: leg pain Objective Exam Vital Signs Vital Signs Date Time Temp Pulse Resp B/P (MAP) Pulse Ox O2 Delivery O2 Flow Rate FiO2 01/30/20 05:19 36.2 80 18 147/80 (102) 93 Nasal Cannula 2.00 Capillary Refill : Less Than 3 Seconds General Appearance: No Apparent Distress, WD/WN, Chronically ill HEENT: PERRL/EOMI, Normal ENT Inspection, Pharynx Normal Neck: Full Range of Motion, Normal Inspection, Non Tender, Supple, Carotid Bruit Respiratory: Chest Non Tender, Lungs Clear, No Accessory Muscle Use, No Respiratory Distress, Decreased Breath Sounds Cardiovascular: Regular Rate, Rhythm, No Edema, No Gallop, No JVD, No Murmur, Normal Peripheral Pulses Gastrointestinal: Normal Bowel Sounds, No Organomegaly, No Pulsatile Mass, Non Tender, Soft Back: Normal Inspection, No CVA Tenderness, No Vertebral Tenderness Extremity: Normal Capillary Refill, Normal Inspection, Normal Range of Motion, Non Tender, No Calf Tenderness, No Pedal Edema Neurologic/Psychiatric: Alert, Oriented x3, Normal Mood/Affect, watch parts inspector II-XII Norm as Tested, Motor Weakness (3/5 lower extremities, 4/5 upper) Skin: Normal Color, Warm/Dry Lymphatic: No Adenopathy Results/Procedures Lab Laboratory Tests 01/29/20 07:59 Patient resulted labs reviewed. FIM Transfers Therapy Code Descriptions/Definitions Functional [place] Measure: 0=Not Assessed/NA 4=Minimal Assistance 1=Total Assistance 5=Supervision or Setup 2=Maximal Assistance 6=Modified [place] 3=Moderate Assistance 7=Complete IndependenceSCALE: Activities may be completed with or without assistive devices. 2-Itqzxwrwez-ndohpmw completes the activity by him/herself with no assistance from a helper. 5-Set-up or Clean-up Assistance-helper sets up or cleans up; patient completes activity. [place] assists only prior to or following the activity. 4-Supervision or Touching Assistance-helper provides verbal cues and/or touchin g/steadying and/or contact guard assistance as patient completes activity. Assistance may be provided throughout the activity or intermittently. 3-Partial/Moderate Assistance-helper does LESS THAN HALF the effort. [place] lifts, holds or supports trunk or limbs, but provides less than half the effort. 2-Substantial/Maximal Assistance-helper does MORE THAN HALF the effort. [place] lifts or holds trunk or limbs and provides more than half the effort. 5-Pmvtylepn-zspocv does ALL the effort. Patient does none of the effort to complete the activity. Or, the assistance of 2 or more helpers is required for the patient to complete the activity. If activity was not attempted, code reason: 7-Patient Refused. 9-Not Applicable-not attempted and the patient did not perform the activity before the current illness, exacerbation or injury. 10-Not Attempted due to Environmental Limitations-(lack of equipment, weather restraints, etc.). 88-Not Attempted due to Medical Conditions or Safety Concerns. Roll Left to Right (QC): 3 Sit to Lying (QC): 2 Sit to Stand (QC): 2 Chair/Iht-as-Otsik Xfer(QC): 2 Car Transfer (QC): 1 Gait Training Does the Patient Walk?: No and Walking Goal IS indicated Walk 10 feet (QC): 88 Walk 50 ft with 2 Turns(QC): 88 Walk 150 ft (QC): 88 Walking 10ft/uneven surface-QC: 88 Wheelchair Training Does the Pt Use a Wheelchair?: Yes Distance: 50'x2 Wheel 50 ft with 2 turns (QC): 3 Wheel 150 ft (QC): 88 Type of Wheelchair: Manual Stair Training 1 Step (curb) (QC): 88 4 Steps (QC): 88 12 Steps (QC): 88 Balance Picking up an Object (QC): 88 ADL-Treatment Eating (QC): 6 (Pt reports independent with lunch.) Oral Hygiene (QC): 5 (based on clinical judgement, pt would require set up assistance with task.) Shower/Bathe Self (QC): 2 (Pt washed UEs, chest and abdomen, required assistance with periarea, LEs, and buttocks.) Upper Body Dressing (QC): 3 (Min A donning/doffing tub puller shirt.) Lower Body Dressing (QC): 1 (total assist donning/doffing pants/underwear at bed level) On/Off Footwear (QC): 1 (pt required total assist donning/doffing footwear.) Toileting Hygiene (QC): 1 (based on clinical judgement, pt would require assistance managing clothing and performing hygiene.) Assessment/Plan Assessment and Plan Assess & Plan/Chief Complaint Assessment: Critical illness debility from COVID-19 dx 12/11/19 OA h/o breast cancer Allergic rhinitis HTN GERD Depression Lung nodules [facility] 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
[2020-01-29 08:10] LABS: BASOPHILS # (AUTO) 0.1 10^3/uL (0.0-0.1); BASOPHILS % (AUTO) 1 % (0-10); EOSINOPHILS # (AUTO) 0.2 10^3/uL (0.0-0.3); EOSINOPHILS % (AUTO) 3 % (0-10); HEMATOCRIT 32 % (35-52); HEMOGLOBIN 9.1 g/dL (11.5-16.0); LYMPHOCYTES # (AUTO) 1.3 10^3/uL (1.0-4.0); LYMPHOCYTES % (AUTO) 17 % (12-44); MEAN CORPUSCULAR HEMOGLOBIN 29 pg (25-34); MEAN CORPUSCULAR HGB CONC 29 g/dL (32-36); MEAN CORPUSCULAR VOLUME 99 fL (80-99); MEAN PLATELET VOLUME 10.2 fL (9.0-12.2); MONOCYTES # (AUTO) 0.7 10^3/uL (0.0-1.0); MONOCYTES % (AUTO) 9 % (0-12); NEUTROPHILS # (AUTO) 5.2 10^3/uL (1.8-7.8); NEUTROPHILS % (AUTO) 70 % (42-75); PLATELET COUNT 304 10^3/uL (130-400); WHITE BLOOD COUNT 7.4 10^3/uL (4.3-11.0)
[2020-01-29 08:45] VITALS: BP 122/59
[2020-01-29] MEDS: ALPRAZolam 0.25 MG (XANAX) TAB PO PRN (08:46)
[2020-01-29] MEDS: ENOXAPARIN 40 MG/0.4 ML (LOVENOX) SYR SC SCH (08:47)
[2020-01-29] MEDS: GABAPENTIN 300 MG (NEURONTIN) CAP PO SCH ×3 (08:47→20:40)
[2020-01-29] MEDS: NIFEdipine ER 30 MG (PROCARDIA XL) TAB PO SCH (08:47)
[2020-01-29] MEDS: LACTOBACILLUS ACIDOPHILUS (PROBIOTIC) CAPSULE PO SCH ×2 (08:47→20:40)
[2020-01-29] MEDS: PANTOPRAZOLE 40 MG (PROTONIX) TAB PO SCH ×2 (08:47→20:40)
[2020-01-29] MEDS: VITAMIN D3 125 MCG (5,000 UNITS) CAPSULE PO SCH (08:48)
[2020-01-29] MEDS: CYANOCOBALAMIN 1,000 MCG (VITAMIN B-12) TABLET PO SCH (08:48)
--- NOTE | 2020-01-29 09:28 | Diagnostic Imaging Report ---
INDICATION: Knee pain TECHNIQUE: 2 views of the right knee CORRELATION STUDY: None FINDINGS: There is rather marked joint space narrowing medially and to lesser degree laterally. There is small calcified intratesticular loose body suggested. There is also narrowing of patellofemoral compartment. Prominent suprapatellar joint effusion. IMPRESSION: 1. Negative for acute bony abnormality of the knee. Advanced multilevel degenerative changes of the right knee mostly medial compartment. Prominent suprapatellar joint effusion. Dictated by: Dictated on workstation # [id number]
[2020-01-29] MEDS: DOCUSATE SODIUM 100 MG (COLACE) CAP PO SCH ×2 (09:32→20:40)
[2020-01-29] MEDS: polyethylene glycoL POWDER 17 GM (MIRALAX) PACK PO SCH ×2 (09:33→20:41)
[2020-01-29] MEDS: SENNA W/DOCUSATE (SENOKOT S) TABLET PO SCH ×2 (09:33→20:41)
--- NOTE | 2020-01-29 10:33 | Physical Therapy Daily Note ---
PT Daily Note-Current Subjective Pt in bed upon arrival; RN just leaving room after giving pt pain medication. Pt agrees to PT tx. Pain Numeric Pain Scale: 10-Worst Possible Pain Location: Right Location Body Site: Knee Pain Description: Throbbing Mental Status Patient Orientation: Person, Place, Time, Situation Transfers SCALE: Activities may be completed with or without assistive devices. 0-Nyndjsfisu-poyhecm completes the activity by him/herself with no assistance from a helper. 5-Set-up or Clean-up Assistance-helper sets up or cleans up; patient completes activity. [place] assists only prior to or following the activity. 4-Supervision or Touching Assistance-helper provides verbal cues and/or touching/steadying and/or contact guard assistance as patient completes activity. Assistance may be provided throughout the activity or intermittently. 3-Partial/Moderate Assistance-helper does LESS THAN HALF the effort. [place] lifts, holds or supports trunk or limbs, but provides less than half the effort. 2-Substantial/Maximal Assistance-helper does MORE THAN HALF the effort. [place] lifts or holds trunk or limbs and provides more than half the effort. 6-Jwfcbelan-hcjzkl does ALL the effort. Patient does none of the effort to complete the activity. Or, the assistance of 2 or more helpers is required for the patient to complete the activity. If activity was not attempted, code reason: 7-Patient Refused. 9-Not Applicable-not attempted and the patient did not perform the activity before the current illness, exacerbation or injury. 10-Not Attempted due to Environmental Limitations-(lack of equipment, weather restraints, etc.). 88-Not Attempted due to Medical Conditions or Safety Concerns. Roll Left & Right (QC): 2 D/t pt extreme pain, pt requires MaxA w/ rolling and repositioning in bed. Exercises Supine Ex: Ankle pumps, Quad Set, Glut sets, Straight leg raise, Hip abd/add Supine Reps: 10 Treatments AAROM supine ex completed. Pt remains in bed w/ call light and bedside table w/in reach and all needs met at end of tx. Assessment Current Status: Poor Progress Pt pain level limits pt. Pt began crying after WHEEL BUFFER introduced self d/t pt feeling "worthless and inadequate b/c I'm unable to do much b/c I'm in so much pain." Pt requires reassurance and encouragement during tx. PT Short Term Goals Short Term Goals Time Frame: Feb 04, 2020 Roll Left & Right: 4 Sit to lyin Lying to sitting on side of be: 3 Sit to stand: 3 Chair/hoc-fj-dyrua transfer: 3 Walk 10 feet: 3 PT Manager Steel Goals Manager Steel Goals PT Manager Steel Goals Time Frame: Feb 18, 2020 Roll Left & Right (QC): 6 Sit to Lying (QC): 4 Lying-Sitting on Side/Bed(QC): 4 Sit to Stand (QC): 3 ([place]helby) Chair/Gvk-hg-Qljpv Xfer(QC): 3 (Shelby) Toilet Transfer (QC): 3 (Shelby) Car Transfer (QC): 3 (Shelby) Does the Patient Walk: No and Walking Goal IS indicated Walk 10 feet (QC): 3 Walk 50ft with 2 Turns (QC): 3 Walk 150 ft (QC): 88 Walking 10ft on Uneven Surface: 88 1 Step (curb) (QC): 88 4 Steps (QC): 88 12 Steps (QC): 88 Picking up an Object (QC): 88 Wheel 50 feet with 2 turns (QC: 6 Wheel 150 feet: 6 PT Plan Problem List Problem List: Activity Tolerance, Functional Strength, Safety, Bed Mobility, ROM Treatment/Plan Treatment Plan: Continue Plan of Care Treatment Plan: Bed Mobility, Education, Functional Activity Renny, Functional Strength, Group Therapy, Gait, Safety, Therapeutic Exercise, Transfers Treatment Duration: Feb 18, 2020 Frequency: At least 5 of 7 days/Wk (IRF) Estimated Hrs Per Day: 1.5 hours per day Patient and/or Family Agrees t: Yes Safety Risks/Education Patient Education: Safety Issues Teaching Recipient: Patient Teaching Methods: Discussion Response to Teaching: Verbalize Understanding Time/GCodes Time In: 922 Time Out: 945 Total Billed Treatment Time: 23 Total Billed Treatment 1, Ex x1 (15m), FA x1 (8m) GLORIA MANZANARES WHEEL BUFFER Jan 29, 2020 10:33
[2020-01-29 13:38] LABS: FREE T4 (FREE THYROXINE) 1.08 NG/DL (0.70-1.48)
[2020-01-29 17:38] VITALS: BP 128/60
[2020-01-29] MEDS: SERTRALINE 50 MG (ZOLOFT) TABLET PO SCH (20:40)
[2020-01-30] MEDS: LIDOCAINE 4% (SALONPAS) PATCH TP SCH ×2 (05:06→16:13)
[2020-01-30 05:19] VITALS: BP 147/80
[2020-01-30] MEDS ORDERED: IRON SUCROSE 200 MG/10 ML (VENOFER) VIAL IV SCH (07:45)
[2020-01-30] MEDS: GABAPENTIN 300 MG (NEURONTIN) CAP PO SCH ×3 (09:27→20:43)
[2020-01-30] MEDS: CYANOCOBALAMIN 1,000 MCG (VITAMIN B-12) TABLET PO SCH (09:27)
[2020-01-30] MEDS: NIFEdipine ER 30 MG (PROCARDIA XL) TAB PO SCH (09:27)
[2020-01-30] MEDS: ENOXAPARIN 40 MG/0.4 ML (LOVENOX) SYR SC SCH (09:27)
[2020-01-30] MEDS: LACTOBACILLUS ACIDOPHILUS (PROBIOTIC) CAPSULE PO SCH ×2 (09:27→20:42)
[2020-01-30] MEDS: PANTOPRAZOLE 40 MG (PROTONIX) TAB PO SCH ×2 (09:27→20:43)
[2020-01-30] MEDS: VITAMIN D3 125 MCG (5,000 UNITS) CAPSULE PO SCH (09:27)
[2020-01-30] MEDS: METHIMAZOLE 5 MG PO SCH (09:42)
[2020-01-30] MEDS: SENNA W/DOCUSATE (SENOKOT S) TABLET PO SCH ×2 (09:46→20:43)
[2020-01-30] MEDS: polyethylene glycoL POWDER 17 GM (MIRALAX) PACK PO SCH ×2 (09:46→20:43)
[2020-01-30] MEDS: DOCUSATE SODIUM 100 MG (COLACE) CAP PO SCH ×2 (09:46→20:43)
--- NOTE | 2020-01-30 10:44 | NUR ---
Multiple attempts made by Charge Nurse from 4th Floor to obtain IV access for patient to receive IV Venofer. Nurse attempted access 3 times and was unable to obtain IV access
--- NOTE | 2020-01-30 11:56 | PM&R Progress Note ---
Subjective HPI/CC On Admission Date Seen by Provider: Jan 30, 2020 Time Seen by Provider: 12:15 Subjective/Events-last exam 01/30/20: Right knee pain continues Will reach out to Dr Dent tomorrow Tapazole restarted Midline needed for iron infusions Severe right knee pain 11/26 today so adjusted her pain meds and xray noted severe OA Dr Scott usually gives her a right knee injections every 3 months and she is overdue I will try to have ortho give pain injection Friday Tapazole not on her list and she has Graves disease she states O2 at 80% so will maintain 2L/min O2 Checking iron level since hgb 9.1 Adding TSH FT4 to labs BM today loose Review of Systems Musculoskeletal: leg pain Objective Exam Vital Signs Vital Signs Date Time Temp Pulse Resp B/P (MAP) Pulse Ox O2 Delivery O2 Flow Rate FiO2 01/30/20 20:23 Room Air 01/30/20 17:10 37.0 91 20 120/58 (78) 93 2.00 Capillary Refill : Less Than 3 Seconds General Appearance: No Apparent Distress, WD/WN, Chronically ill HEENT: PERRL/EOMI, Normal ENT Inspection, Pharynx Normal Neck: Full Range of Motion, Normal Inspection, Non Tender, Supple, Carotid Bruit Respiratory: Chest Non Tender, Lungs Clear, No Accessory Muscle Use, No Respiratory Distress, Decreased Breath Sounds Cardiovascular: Regular Rate, Rhythm, No Edema, No Gallop, No JVD, No Murmur, Normal Peripheral Pulses Gastrointestinal: Normal Bowel Sounds, No Organomegaly, No Pulsatile Mass, Non Tender, Soft Back: Normal Inspection, No CVA Tenderness, No Vertebral Tenderness Extremity: Normal Capillary Refill, Normal Inspection, Normal Range of Motion, Non Tender, No Calf Tenderness, No Pedal Edema Neurologic/Psychiatric: Alert, Oriented x3, Normal Mood/Affect, 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 FIM Transfers Therapy Code Descriptions/Definitions Functional [place] Measure: 0=Not Assessed/NA 4=Minimal Assistance 1=Total Assistance 5=Supervision or Setup 2=Maximal Assistance 6=Modified [place] 3=Moderate Assistance 7=Complete IndependenceSCALE: Activities may be completed with or without assistive devices. 6-Lsreivjbqd-xfijjdb completes the activity by him/herself with no assistance from a helper. 5-Set-up or Clean-up Assistance-helper sets up or cleans up; patient completes activity. [place] assists only prior to or following the activity. 4-Supervision or Touching Assistance-helper provides verbal cues and/or touching/steadying and/or contact guard assistance as patient completes activity. Assistance may be provided throughout the activity or intermittently. 3-Partial/Moderate Assistance-helper does LESS THAN HALF the effort. [place] lifts, holds or supports trunk or limbs, but provides less than half the effort. 2-Substantial/Maximal Assistance-helper does MORE THAN HALF the effort. [place] lifts or holds trunk or limbs and provides more than half the effort. 0-Ilbnhruef-csmtvp does ALL the effort. Patient does none of the effort to complete the activity. Or, the assistance of 2 or more helpers is required for the patient to complete the activity. If activity was not attempted, code reason: 7-Patient Refused. 9-Not Applicable-not attempted and the patient did not perform the activity before the current illness, exacerbation or injury. 10-Not Attempted due to Environmental Limitations-(lack of equipment, weather restraints, etc.). 88-Not Attempted due to Medical Conditions or Safety Concerns. Roll Left to Right (QC): 2 Sit to Lying (QC): 2 Sit to Stand (QC): 2 Chair/Gxu-qa-Vwdcf Xfer(QC): 2 Car Transfer (QC): 1 Gait Training Does the Patient Walk?: No and Walking Goal IS indicated Walk 10 feet (QC): 88 Walk 50 ft with 2 Turns(QC): 88 Walk 150 ft (QC): 88 Walking 10ft/uneven surface-QC: 88 Wheelchair Training Does the Pt Use a Wheelchair?: Yes Distance: 50'x2 Wheel 50 ft with 2 turns (QC): 3 Wheel 150 ft (QC): 88 Type of Wheelchair: Manual Stair Training 1 Step (curb) (QC): 88 4 Steps (QC): 88 12 Steps (QC): 88 Balance Picking up an Object (QC): 88 ADL-Treatment Eating (QC): 6 (Pt reports independent with lunch.) Oral Hygiene (QC): 5 (based on clinical judgement, pt would require set up assistance with task.) Shower/Bathe Self (QC): 2 (Pt washed UEs, chest and abdomen, required assistance with periarea, LEs, and buttocks.) Upper Body Dressing (QC): 3 (Min A donning/doffing pot puller shirt.) Lower Body Dressing (QC): 1 (total assist donning/doffing pants/underwear at bed level) On/Off Footwear (QC): 1 (pt required total assist donning/doffing footwear.) Toileting Hygiene (QC): 1 (based on clinical judgement, pt would require assistance managing clothing and performing hygiene.) Assessment/Plan Assessment and Plan Assess & Plan/Chief Complaint Assessment: Critical illness debility from COVID-19 dx 12/11/19 OA h/o breast cancer Allergic rhinitis HTN GERD Depression Lung nodules [facility]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
[2020-01-30] MEDS: ALPRAZolam 0.25 MG (XANAX) TAB PO PRN (12:58)
[2020-01-30] MEDS: DICLOFENAC 1% GEL 100 GM (VOLTAREN) TUBE TOP SCH ×3 (13:45→20:43)
[2020-01-30 17:10] VITALS: BP 120/58
[2020-01-30] MEDS: SERTRALINE 50 MG (ZOLOFT) TABLET PO SCH (20:42)
[2020-01-31] MEDS: LIDOCAINE 4% (SALONPAS) PATCH TP SCH ×2 (05:34→17:19)
[2020-01-31 06:13] VITALS: BP 128/61
[2020-01-31] MEDS: DOCUSATE SODIUM 100 MG (COLACE) CAP PO SCH ×2 (08:32→22:30)
[2020-01-31] MEDS: polyethylene glycoL POWDER 17 GM (MIRALAX) PACK PO SCH ×2 (08:32→22:30)
[2020-01-31] MEDS: SENNA W/DOCUSATE (SENOKOT S) TABLET PO SCH ×2 (08:33→22:30)
--- NOTE | 2020-01-31 09:03 | Individualized Plan of Care ---
Individualized Plan of Care Rehab Nursing IPOC Order Admission Date Jan 28, 2020 at 11:00 Current Orders Orders Admission Order(Inpt,Obs,Sdc) (01/28/20 05:50) Vital Signs: Per Unit Policy ( 08,16,00 (01/28/20 05:50) Jose Cerda 09,21 (01/28/20 05:50) Sequential Compression Device Q4H (01/28/20 05:50) Manufacturing Specialist-Inpt Rehab Con (01/28/20 05:50) Rehab Nursing Orders-Ipoc (01/28/20 05:50) Physical Therapy Rehab Orders (01/28/20 05:50) Occupational Therapy Rehab Ord (01/28/20 05:50) Speech Therapy Rehab Orders (01/28/20 05:50) Cbc With Automated Diff (01/29/20 06:00) Comprehensive Metabolic Panel (01/29/20 06:00) General/Regular (01/28/20 Breakfast) Intake & Output 06,14,22 (01/28/20 05:50) Precautions (Aru) (01/28/20 05:50) Rehab-Intensity Of Therapy (01/28/20 05:50) Initiate Admission Nursing Pro .admission (01/28/20 05:50) Alprazolam Tablet (Xanax Tablet) (01/28/20 06:00) Calcium Carbonate Chew Tablet (Antacid C (01/28/20 06:00) Diphenhydramine Tablet (Benadryl Tablet) (01/28/20 06:00) Docusate Sodium Capsule (Colace Capsule) (01/28/20 09:00) Docusate Sodium Capsule (Colace Capsule) (01/28/20 06:00) Bisacodyl Suppository (Dulcolax Supposit (01/28/20 06:00) Lactulose Oral Solution (Enulose Oral So (01/28/20 06:00) Na Phos/Na Biphos Enema (Fleet Enema Ryan (01/28/20 06:00) Guaifenesin/Codeine Syrup (Robitussin Ac (01/28/20 06:00) Loperamide Tablet (Imodium Tablet) (01/28/20 06:00) Enoxaparin Injection (Lovenox Injection) (01/28/20 06:00) Melatonin Tablet (Melatonin Tablet) (01/28/20 06:00) Polyethylene Glycol Powder Pkt (Miralax (01/28/20 09:00) Ondansetron Oral Dissolve Tab (Zofran (01/28/20 06:00) Senna S Tablet (Senokot S Tablet) (01/28/20 09:00) Initiate Admission Nursing Pro .admission (01/28/20 05:50) Admission Arrival Bed Request (01/28/20 11:00) Patient Visit (01/28/20 ) Speech Sound Lang Comp (01/28/20 ) Patient Visit (01/28/20 ) Pt Eval Moderate Complexity (01/28/20 ) Functional Activities, Ea 15 (01/28/20 ) Enoxaparin Injection (Lovenox Injection) (01/28/20 16:00) Enoxaparin Injection (Lovenox Injection) (01/29/20 09:00) Acetaminophen Suppository (Tylenol Suppo (01/28/20 17:00) Cholecalciferol Capsule/Tablet (Vitamin (01/29/20 09:00) Cyanocobalamin Tablet (Vitamin B-12 Tabl (01/29/20 09:00) Gabapentin Capsule/Tablet (Neurontin Cap (01/28/20 21:00) Hydrocortisone Suppository (Anusol-Hc Mcgarry (01/28/20 17:00) Lactobacillus Acidophilus Cap (Acidophil (01/28/20 21:00) Lidocaine 4% Patch (Salonpas 4% Patch) (01/28/20 17:00) Nifedipine Xl Tablet (Procardia Xl Tab (01/29/20 09:00) Oxycodone Immediate Rel Tablet (Oxyir Ta (01/28/20 17:00) Pantoprazole Tablet (Protonix Tablet) (01/28/20 21:00) Senna S Tablet (Senokot S Tablet) (01/28/20 17:00) Sertraline Tablet (Zoloft Tablet) (01/28/20 21:00) (Nf) Folic Acid/Vitamin B Comp W-C (Neph (01/29/20 09:00) Carboxymethylcell Ophth Soln (Refresh Pl (01/28/20 18:00) Ensure Enlive (01/28/20 Dinner) Ambulate 08,,20 (01/28/20 20:50) Dvt/Vte Risk - Notifiy Physici Q4H (01/28/20 20:50) General/Regular (01/29/20 Breakfast) Oxycodone Immediate Rel Tablet (Oxyir Ta (01/29/20 09:00) Knee, Right, 2 Views (01/29/20 08:50) Patient Visit (01/29/20 ) Functional Activities, Ea 15 (01/29/20 ) Exercise Therap, Ea 15 Min (01/29/20 ) Oxycodone Immediate Rel Tablet (Oxyir Ta (01/29/20 12:30) Iron Test (Fe) (01/29/20 12:18) Thyroid Stimulating Hormone (01/29/20 12:38) Free T4 (Free Thyroxine) (01/29/20 12:38) Oxygen Delivery Set Up (01/29/20 15:40) Oxygen-Administer 07,19 (01/29/20 15:40) Oxygen-Administer 07,19 (01/29/20 15:40) Oxygen Delivery Set Up (01/29/20 15:40) Iron Sucrose Injection (Venofer Injectio (01/30/20 07:45) Methimazole Tablet (Tapazole Tablet) (01/30/20 09:00) Iron Sucrose Injection (Venofer Injectio (01/31/20 15:00) Venous Access Request Order (01/31/20 08:00) Diclofenac 1% Gel (Voltaren 1% Gel) (01/30/20 13:45) Sildenafil Tablet (Non-Form) (Revatio Ta (01/31/20 09:00) Naloxone Injection (Narcan Injection) (01/31/20 09:45) Betamethasone Luis A/Na Phos (L&D ([place] (02/01/20 09:00) Methylprednisolone Acetate Inj (Depo-Med (01/31/20 10:30) Amb Us Guide Vascular Access (01/31/20 ) Patient Visit (01/31/20 ) Functional Activities, Ea 15 (01/31/20 ) Exercise Therap, Ea 15 Min (01/31/20 ) Rehab Nursing Orders: Ongoing Assess. of Function Status Intensity of Therapy to be met Patient to be seen: Min.3h per day/5 of 7d PT IPOC Problem List: Activity Tolerance, Functional Strength, Safety, Bed Mobility, ROM Treatment Plan: Continue Plan of Care Bed Mobility, Education, Functional Activity Renny, Functional Strength, Group Therapy, Gait, Safety, Therapeutic Exercise, Transfers Treatment Duration: Feb 18, 2020 Frequency: At least 5 of 7 days/Wk (IRF) Estimated Hrs Per Day: 1.5 hours per day OT IPOC Problems: Decreased Activ Tolerance, Decreased UE Strength, Impaired Bed Mobility, Impaired Funct Balance, Impaired I ADL's, Impaired Self-Care Skills OT Treatment, Training and Edu: Yes Plan of Care: ADL Retraining, Functional Mobility, Group Exercise/Act as Ind, UE Funct Exercise/Act Treatment Duration: Feb 18, 2020 Frequency: At least 5 of 7 days/Wk (IRF) Estimated Hrs Per Day: 1.[address] IPOC Speech Therapy Treatment Plan: Discontinue ST Treatment Duration: Jan 31, 2020 Frequency: 1 time per week Estimated Hrs Per Day: .5 hour per day Manufacturing Specialist/Case Mgmt Manufacturing Specialist/Case Managemen: Discharge Planning Dietitian/Videotape Recording Engineer Dietitian/Videotape Recording Engineer to monitor nutritional status and make changes and/or recommendations as needed and work with speech pathology on dietary upgrades as the occur. Physician IPOC Medical Issues being managed closely and that require the 24 hour availability of a physician: Recent COVID-19 PNA with long recovery resulting in high risk for hypoxia and decompensation in need of close monitoring Medical Issues: Bowel/Bladder Function, DVT Prophylaxis, Falls Precautions, Fluid/Electrolyte/Nutrition Balance, Infection Protection, Pain Management Brief Synthesis of Preadmission Screen, Post-Admission Evaluation, and Therapy Evaluations: PT OT will focus on regaining ambulatory skills along with independence in ADL's while monitoring hypoxia residual from COVID-19 Medical Prognosis: Good Anticipated Length of Stay: 14 days JARRELL HURD DO Jan 31, 2020 09:03
--- NOTE | 2020-01-31 09:03 | PM&R Progress Note ---
Subjective HPI/CC On Admission Date Seen by Provider: Jan 31, 2020 Time Seen by Provider: 09:00 Subjective/Events-last exam 01/31/20: Dr. Dent graciously agreed to see her for right knee pain and will initiate an injection Hgb 9.1 so midline will be placed with iron infusions 2 L of oxygen maintained After rounds Dr Dent updated me on the fact that no injection initiated due to high risk following COVID 01/30/20: Right knee pain continues Will reach out to Dr Dent tomorrow Tapazole restarted Midline needed for iron infusions Severe right knee pain 11/26 today so adjusted her pain meds and xray noted severe OA Dr Scott usually gives her a right knee injections every 3 months and she is overdue I will try to have ortho give pain injection Friday Tapazole not on her list and she has Graves disease she states O2 at 80% so will maintain 2L/min O2 Checking iron level since hgb 9.1 Adding TSH FT4 to labs BM today loose Review of Systems Musculoskeletal: leg pain Neurological: Weakness, Incoordination Objective Exam Vital Signs Vital Signs Date Time Temp Pulse Resp B/P (MAP) Pulse Ox O2 Delivery O2 Flow Rate FiO2 01/31/20 20:30 94 Nasal Cannula 2.00 01/31/20 18:03 37.0 93 20 125/60 (81) Capillary Refill : Less Than 3 Seconds General Appearance: No Apparent Distress, WD/WN, Chronically ill HEENT: PERRL/EOMI, Normal ENT Inspection, Pharynx Normal Neck: Full Range of Motion, Normal Inspection, Non Tender, Supple, Carotid Bruit Respiratory: Chest Non Tender, Lungs Clear, No Accessory Muscle Use, No Respiratory Distress, Decreased Breath Sounds Cardiovascular: Regular Rate, Rhythm, No Edema, No Gallop, No JVD, No Murmur, Normal Peripheral Pulses Gastrointestinal: Normal Bowel Sounds, No Organomegaly, No Pulsatile Mass, Non Tender, Soft Back: Normal Inspection, No CVA Tenderness, No Vertebral Tenderness Extremity: Normal Capillary Refill, Normal Inspection, Normal Range of Motion, Non Tender, No Calf Tenderness, No Pedal Edema Neurologic/Psychiatric: Alert, Oriented x3, Normal Mood/Affect, director equipment II-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 FIM Transfers Therapy Code Descriptions/Definitions Functional [place] Measure: 0=Not Assessed/NA 4=Minimal Assistance 1=Total Assistance 5=Supervision or Setup 2=Maximal Assistance 6=Modified [place] 3=Moderate Assistance 7=Complete IndependenceSCALE: Activities may be completed with or without assistive devices. 0-Ucrnljmqcy-ritbtvs completes the activity by him/herself with no assistance from a helper. 5-Set-up or Clean-up Assistance-helper sets up or cleans up; patient completes activity. [place] assists only prior to or following the activity. 4-Supervision or Touching Assistance-helper provides verbal cues and/or touching/steadying and/or contact guard assistance as patient completes activity. Assistance may be provided throughout the activity or intermittently. 3-Partial/Moderate Assistance-helper does LESS THAN HALF the effort. [place] lif ts, holds or supports trunk or limbs, but provides less than half the effort. 2-Substantial/Maximal Assistance-helper does MORE THAN HALF the effort. [place] lifts or holds trunk or limbs and provides more than half the effort. 1-Ggtsrahjq-vzjdoe does ALL the effort. Patient does none of the effort to complete the activity. Or, the assistance of 2 or more helpers is required for the patient to complete the activity. If activity was not attempted, code reason: 7-Patient Refused. 9-Not Applicable-not attempted and the patient did not perform the activity before the current illness, exacerbation or injury. 10-Not Attempted due to Environmental Limitations-(lack of equipment, weather restraints, etc.). 88-Not Attempted due to Medical Conditions or Safety Concerns. Roll Left to Right (QC): 2 Sit to Lying (QC): 2 Sit to Stand (QC): 2 Chair/Lwh-cs-Aruxf Xfer(QC): 2 Car Transfer (QC): 1 Gait Training Does the Patient Walk?: No and Walking Goal IS indicated Walk 10 feet (QC): 88 Walk 50 ft with 2 Turns(QC): 88 Walk 150 ft (QC): 88 Walking 10ft/uneven surface-QC: 88 Wheelchair Training Does the Pt Use a Wheelchair?: Yes Distance: 50'x2 Wheel 50 ft with 2 turns (QC): 3 Wheel 150 ft (QC): 88 Type of Wheelchair: Manual Stair Training 1 Step (curb) (QC): 88 4 Steps (QC): 88 12 Steps (QC): 88 Balance Picking up an Object (QC): 88 ADL-Treatment Eating (QC): 6 (Pt reports independent with lunch.) Oral Hygiene (QC): 5 (based on clinical judgement, pt would require set up assistance with task.) Shower/Bathe Self (QC): 2 (Pt washed UEs, chest and abdomen, required assistance with periarea, LEs, and buttocks.) Upper Body Dressing (QC): 3 (Min A donning/doffing char puller shirt.) Lower Body Dressing (QC): 1 (total assist donning/doffing pants/underwear at bed level) On/Off Footwear (QC): 1 (pt required total assist donning/doffing footwear.) Toileting Hygiene (QC): 1 (based on clinical judgement, pt would require assistance managing clothing and performing hygiene.) Assessment/Plan Assessment and Plan Assess & Plan/Chief Complaint Assessment: Critical illness debility from COVID-19 dx 12/11/19 OA h/o breast cancer Allergic rhinitis HTN GERD Depression Lung nodules [facility]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
[2020-01-31] MEDS: NIFEdipine ER 30 MG (PROCARDIA XL) TAB PO SCH (09:17)
[2020-01-31] MEDS: METHIMAZOLE 5 MG PO SCH (09:17)
[2020-01-31] MEDS: CYANOCOBALAMIN 1,000 MCG (VITAMIN B-12) TABLET PO SCH (09:17)
[2020-01-31] MEDS: ENOXAPARIN 40 MG/0.4 ML (LOVENOX) SYR SC SCH (09:17)
[2020-01-31] MEDS: LACTOBACILLUS ACIDOPHILUS (PROBIOTIC) CAPSULE PO SCH ×2 (09:17→22:31)
[2020-01-31] MEDS: VITAMIN D3 125 MCG (5,000 UNITS) CAPSULE PO SCH (09:17)
[2020-01-31] MEDS: DICLOFENAC 1% GEL 100 GM (VOLTAREN) TUBE TOP SCH ×4 (09:18→22:32)
[2020-01-31] MEDS: GABAPENTIN 300 MG (NEURONTIN) CAP PO SCH ×3 (09:18→22:31)
[2020-01-31] MEDS: PANTOPRAZOLE 40 MG (PROTONIX) TAB PO SCH ×2 (09:18→22:32)
[2020-01-31] MEDS ORDERED: NALOXONE 2 MG/2 ML (NARCAN) SYR IV NR (09:45)
[2020-01-31] MEDS ORDERED: methylPREDNISolone 80 MG/ML (DEPO MEDROL) VIAL IM NR (10:30)
--- NOTE | 2020-01-31 10:43 | NUR ---
CM/SS ADMISSION Patient admitted to ARU from [facility] 01/28/20 for Critical Illness Myopathy. She tested Covid + 12/08, admitted to [facility] 12/10, intubated 12/14. Transferred to [facility] 12/23 and then to ARU as noted 01/27. Comorbidities include, in part, OA, history of breast cancer, HTN, depression, anxiety, lung nodules reportedly stable per [facility] visit, GERD, hypoxia. Patient resides at home with her spouse and her goal is to return there when discharged. 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 Her spouse retired from [employer] 2003 as well, and they took that opportunity to be a part of their grandchildren's lives. She stated prior to onset of Covid and subsequent decline, she was completely independent and fully active and that it was "hard to ever find her at home." PCP: Dr. Prosper Faith, [facility] [phone] PHARMACY: [facility] in [facility] INSURANCE: Medicare, [facility] DME: Anticipate needing FWW, may need home O2. Has old FWW >5 years from Medicare. Desires Bedside Commode, understands this is a private pay item and she/family can shop for this now. BARRIERS TO DISCHARGE PLANNING: Patient lengthy hospital stay and deconditioning. CONTACTS: Keny Vidal, Spouse [id number] [place] [address] HM: [phone] CE: [phone] Femi Vidal, Son [address] [place] [address] CE: [phone] WK CE: [phone] Assumed to have 2 children because patient said they have 6 total. Daughter JENA Vyas Has 4 children, 2 girls and identical twin boys. Patient understood the purpose and process of the weekly patient care conference and that her first review would be February 01.
--- NOTE | 2020-01-31 11:51 | Occupational Ther Daily Note ---
OT Current Status-Daily Note Subjective Pt laying in bed, agreeable to tx. Pt reports her knee pain is doing better than this weekend. Mental Status/Objective Patient Orientation: Person, Place, Time, Situation Attachments: Oxygen (2L) ADL-Treatment Therapy Code Descriptions/Definitions Functional [place] Measure: 0=Not Assessed/NA 4=Minimal Assistance 1=Total Assistance 5=Supervision or Setup 2=Maximal Assistance 6=Modified [place] 3=Moderate Assistance 7=Complete IndependenceSCALE: Activities may be completed with or without assistive devices. 3-Ypriqthwkh-tdjyody completes the activity by him/herself with no assistance from a helper. 5-Set-up or Clean-up Assistance-helper sets up or cleans up; patient completes activity. [place] assists only prior to or following the activity. 4-Supervision or Touching Assistance-helper provides verbal cues and/or touching/steadying and/or contact guard assistance as patient completes a ctivity. Assistance may be provided throughout the activity or intermittently. 3-Partial/Moderate Assistance-helper does LESS THAN HALF the effort. [place] lifts, holds or supports trunk or limbs, but provides less than half the effort. 2-Substantial/Maximal Assistance-helper does MORE THAN HALF the effort. [place] lifts or holds trunk or limbs and provides more than half the effort. 4-Fmvdobxfk-laohbo does ALL the effort. Patient does none of the effort to complete the activity. Or, the assistance of 2 or more helpers is required for the patient to complete the activity. If activity was not attempted, code reason: 7-Patient Refused. 9-Not Applicable-not attempted and the patient did not perform the activity before the current illness, exacerbation or injury. 10-Not Attempted due to Environmental Limitations-(lack of equipment, weather restraints, etc.). 88-Not Attempted due to Medical Conditions or Safety Concerns. Lower Body Dressing (QC): 1 (Pt required assistance threading BLE into brief, then pt rolled side to side in bed as OT managed up.) On/Off Footwear: 1 (total assist donning shoes.) Other Treatment OT/PT cotreat due to skill of 2 clinicians required which a rehabilitation attendant could not perform in order to coordinate UE/LE with tasks, and due to pt's limitations in functional strength, endurance, mobility. OT focused on ADLs, UE placement, cues for sequencing and safety and assistance with transfers while PT focused on LE placement, gross overall movements, and transfers. Pt laying in bed, donned brief, then transferred supine to sit EOB. Shoes donned at EOB. Pt transferred to w/c via SPT, then self-propelled w/c to therapy gym. Pt required frequent rest breaks with propelling w/c. Pt stood at parallel bars, x3, ~15 seconds each time with extensive rest breaks between trials. Pt able to clear bottom from chair but unable to come to full stand. Pt taken back to her room, transferring from w/c to recliner. Post tx, pt seated in recliner, call light in reach and all needs met. Education OT Patient Education: Correct positioning, Modified ADL techniques, Progress toward Goal/Update tx plan, Purpose of tx/functional activities Teaching Recipient: Patient Teaching Methods: Discussion Response to Teaching: Verbalize Understanding OT Short Term Goals Short Term Goals Time Frame: Feb 09, 2020 Toileting hygiene: 3 Lower body dressin Putting on/taking off footwear: 3 OT Shelter Goals Shelter Goals Time Frame: Feb 18, 2020 Eating (QC): 6 Oral Hygiene (QC): 6 Toileting Hygiene (QC): 6 Shower/Bathe Self (QC): 6 Upper Body Dressing (QC): 6 Lower Body Dressing (QC): 6 On/Off Footwear (QC): 6 Additional Goals: 1-Demonstrate ADL Tasks, 2-Verbalize Understanding, 3- ImproveStrength/Renny 1=Demonstrate adherence to instructed precautions during ADL tasks. 2=Patient will verbalize/demonstrate understanding of assistive devices/modifications for ADL. 3=Patient will improve strength/tolerance for activity to enable patient to perform ADL's. OT Education/Plan Problem List/Assessment Assessment: Decreased Activ Tolerance, Decreased UE Strength, Impaired Funct Balance, Impaired I ADL's, Impaired Self-Care Skills, Restricted Funct UE ROM Discharge Recommendations Plan/Recommendations: Continue POC Treatment Plan/Plan of Care Patient would benefit from OT for education, treatment and training to promote independence in ADL's, mobility, safety and/or upper extremity function for ADL's. Plan of Care: ADL Retraining, Functional Mobility, Group Exercise/Act as Ind, UE Funct Exercise/Act Treatment Duration: Feb 18, 2020 Frequency: At least 5 of 7 days/Wk (IRF) Estimated Hrs Per Day: 1.5 hours per day Agreement: Yes Rehab Potential: Fair Time/GCodes Start Time: 10:00 Stop Time: 11:00 Total Time Billed (hr/min): 60 Billed Treatment Time cotreat x60' 1, FA 4 ISIDRO MACIEL OT Jan 31, 2020 11:51
--- NOTE | 2020-01-31 12:42 | Physical Therapy Daily Note ---
PT Daily Note-Current Subjective Patient in bed pre tx, agrees to PT, has unrated pain in right knee. Appearance Patient in recliner post tx with nurse call, phone, tray, all needs met. Mental Status Patient Orientation: Person, Place, Situation Attachments: Oxygen Transfers SCALE: Activities may be completed with or without assistive devices. 7-Aluynzzebr-hkbbwts completes the activity by him/herself with no assistance from a helper. 5-Set-up or Clean-up Assistance-helper sets up or cleans up; patient completes activity. [place] assists only prior to or following the activity. 4-Supervision or Touching Assistance-helper provides verbal cues and/or touching/steadying and/or contact guard assistance as patient completes activity. Assistance may be provided throughout the activity or intermittently. 3-Partial/Moderate Assistance-helper does LESS THAN HALF the effort. [place] lifts, holds or supports trunk or limbs, but provides less than half the effort. 2-Substantial/Maximal Assistance-helper does MORE THAN HALF the effort. [place] lifts or holds trunk or limbs and provides more than half the effort. 5-Enzlwqedl-fbjohr does ALL the effort. Patient does none of the effort to complete the activity. Or, the assistance of 2 or more helpers is required for the patient to complete the activity. If activity was not attempted, code reason: 7-Patient Refused. 9-Not Applicable-not attempted and the patient did not perform the activity before the current illness, exacerbation or injury. 10-Not Attempted due to Environmental Limitations-(lack of equipment, weather restraints, etc.). 88-Not Attempted due to Medical Conditions or Safety Concerns. Roll Left & Right (QC): 3 Lying to Sitting/Side of Bed(Q: 3 Sit to Stand (QC): 2 Chair/Qsa-ij-Hntkt Xfer(QC): 2 Supine to sit and then stand pivot transfer to Wheelchair Training Does the Pt Use a Wheelchair?: Yes Wheel 50 ft with 2 turns (QC): 3 Type of Wheelchair: Manual 100'x2 Exercises Patient stood in parallel bars x3 for about 15 seconds each time, she doesn't seem to be able to bear much weight through her legs Treatments PT performed bed mobility and transfers, standing, WC mobility, OT performed UE positioning and safety during activity, dressing Assessment Current Status: Poor Progress Patient requires significant rest breaks due to fatigue and decreasing O2 PT Short Term Goals Short Term Goals Time Frame: Feb 04, 2020 Roll Left & Right: 4 Sit to lyin Lying to sitting on side of be: 3 Sit to stand: 3 Chair/hgj-qg-pwupw transfer: 3 Walk 10 feet: 3 PT Intermediate Goals Standard Machine Stitcher Goals PT Standard Machine Stitcher Goals Time Frame: Feb 18, 2020 Roll Left & Right (QC): 6 Sit to Lying (QC): 4 Lying-Sitting on Side/Bed(QC): 4 Sit to Stand (QC): 3 ([place]helby) Chair/Pxs-cf-White Xfer(QC): 3 ([place]) Toilet Transfer (QC): 3 ([place]hel[place]) Car Transfer (QC): 3 ([place]hel[place]) Does the Patient Walk: No and Walking Goal IS indicated Walk 10 feet (QC): 3 Walk 50ft with 2 Turns (QC): 3 Walk 150 ft (QC): 88 Walking 10ft on Uneven Surface: 88 1 Step (curb) (QC): 88 4 Steps (QC): 88 12 Steps (QC): 88 Picking up an Object (QC): 88 Wheel 50 feet with 2 turns (QC: 6 Wheel 150 feet: 6 PT Plan Problem List Problem List: Activity Tolerance, Functional Strength, Safety, Balance, Gait, Transfer, Bed Mobility, ROM Treatment/Plan Treatment Plan: Continue Plan of Care Treatment Plan: Bed Mobility, Education, Functional Activity Renny, Functional Strength, Group Therapy, Gait, Safety, Therapeutic Exercise, Transfers Treatment Duration: Feb 18, 2020 Frequency: At least 5 of 7 days/Wk (IRF) Estimated Hrs Per Day: 1.5 hours per day Patient and/or Family Agrees t: Yes Safety Risks/Education Patient Education: Transfer Techniques, Correct Positioning, W/C Management, Safety Issues Teaching Recipient: Patient Teaching Methods: Demonstration, Discussion Response to Teaching: Reinforcement Needed Time/GCodes Time In: 1000 Time Out: 1100 Total Billed Treatment Time: 60 Total Billed Treatment 1 visit FA Chidi' MAYTE BENAVIDEZ PT Jan 31, 2020 12:42
[2020-01-31] MEDS: SILDENAFIL 20 MG (REVATIO) TAB NON-FORMULARY PO SCH ×3 (12:48→22:33)
--- NOTE | 2020-01-31 13:15 | Consultation - Ortho ---
Consult - Ortho Subjective Date of Exam 01/31/20 Chief Complaint Right knee pain and swelling secondary to severe osteoarthritis HPI/Events since last exam Mrs. Vidal is a 74-year-old white female has had chronic right knee pain. She is a gets injections about every 3-[address] Scott and Jade. She hasn't had an injection for 3 months. She's also had viscous supplementation injections in the past which didn't help as much as a cortisone. She is recovering from COVID. The past few days she's had increased knee pain and swelling. Dr. Carr thought she might benefit from a cortisone injection since she is now 4 months since her last injection. 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 She is supposed to see Dr. Buckley for evaluation of the right knee and possible total knee arthroplasty but she hasn't seen them yet. She has been on Modicon the past but hasn't been on it since she was hospitalized for COVID Medical, Surgical History Reviewed and no additions or changes Social History Reviewed and no additions or changes Family History Reviewed and no additions or changes Review of Systems Reviewed and no additions or changes Allergies: Coded Allergies: Sulfa (Sulfonamide Antibiotics) (Verified Allergy, Unknown, 01/28/20) amoxicillin (Verified Allergy, Unknown, 01/28/20) clavulanic acid (Verified Allergy, Unknown, 01/28/20) codeine (Verified Allergy, Unknown, 01/28/20) diazepam (Verified Allergy, Unknown, 01/28/20) hydrocodone (Verified Allergy, Unknown, 01/28/20) iodine (Verified Allergy, Unknown, 01/28/20) sulfamethoxazole (Verified Allergy, Unknown, 01/28/20) trimethoprim (Verified Allergy, Unknown, 01/28/20) Uncoded Allergies: MSG (Adverse Reaction, Severe, Diarrhea, 01/28/20) abdominal cramping, severe diarrhea Home Meds Reported Medications Oxycodone Hcl (OXYIR TABLET) 5 Mg Tab, 5 MG PO Q8H PRN for PAIN-SEVERE (8-10), TAB 01/28/20 Hydrocortisone Acetate (Anucort-Hc) 25 Mg Supp.rect, 25 MG RC Q8H PRN for HEMMORRHOID DISCOMFORT, SUPP.RECT 01/28/20 Sennosides/Docusate Sodium (Senna S Tablet) 1 Each Tablet, 1 EACH PO DAILY PRN for CONSTIPATION-6TH LINE, TAB 01/28/20 Polyvinyl Alcohol/Povidone (Artificial Tears Drops) 15 Ml Drops, 2 DROPS OU PRN PRN for DRY EYES, DROPS 01/28/20 Acetaminophen (Acetaminophen) 650 Mg Supp.rect, 650 MG RC Q6H PRN for PAIN-MILD (1-4) OR TEMPATURE, SUPP.RECT 01/28/20 Cholecalciferol (Vitamin D3) (Vitamin D3) 125 Mcg Tablet, 125 MCG PO DAILY, TAB 01/28/20 Cyanocobalamin (Vitamin B-12) (Vitamin B-12) 1,000 Mcg Tablet, 1000 MCG PO DAILY, TAB 01/28/20 Sildenafil Citrate (Revatio) 20 Mg Tablet, 10 MG PO BID, TAB TAKES OF A 20MG TAB 01/28/20 Sertraline HCl (Sertraline HCl) 50 Mg Tablet, 50 MG PO HS, TAB 01/28/20 Pantoprazole Sodium (Protonix) 40 Mg Tablet.dr, 40 MG PO BID, TAB 01/28/20 Nifedipine (Procardia Xl) 30 Mg Tab.er.24, 30 MG PO DAILY, TAB 01/28/20 Lidocaine (Lidocaine 5% Patch) 1 Each Adh..patch, 1 EACH TP Q12H MDD 2, PATCH APPLY TO RIGHT KNEE FOR UP TO 12 HOURS PER DAY 01/28/20 Lactobacillus Acidophilus/Pect (Acidophilus-Pectin Capsule) 1 Each Capsule, 2 EACH PO BID, CAP 01/28/20 Gabapentin (Neurontin) 300 Mg Capsule, 600 MG PO TID, CAP TAKES 2 (300MG) CAPS 01/28/20 Folic Acid/Vitamin B Comp W-C (Nephro-Arben Tablet) 0.8 Mg Tablet, 0.8 MG PO DAILY, TAB 01/28/20 Objective Exam Constitutional: [] HEENT: [] Neck: [] Cardiovascular: [] Respiratory: [] Gastrointestinal: [] Genitourinary: [] Skin: [] Back/Spine: [] Extremities: [Exam of the right lower extremity shows no pain with range of motion of the hip. Range of motion knee is painful. She has a mild effusion of the knee. No increased warmth or redness. She lacks 10 of full extension. I can flex her up to about 90-100 with increasing pain. She does have a little bit of medial laxity. Joint line pain is noted. Patellofemoral pain is noted as well. No posterior knee pain or fullness. No calf tenderness and negative Homans.] Neurologic: [] Psychiatric: [] Hematologic/lymphatic/immunologic: [] Vital Signs Vital Signs Date Time Temp Pulse Resp B/P (MAP) Pulse Ox O2 Delivery O2 Flow Rate FiO2 01/31/20 09:00 Room Air 01/31/20 06:13 37.0 84 18 128/61 (83) 92 Nasal Cannula 2.00 01/30/20 20:23 Room Air 01/30/20 17:10 37.0 91 20 120/58 (78) 93 Nasal Cannula 2.00 I & O 01/31/20 07:00 Intake Total 1500 ml Balance 1500 ml Imaging X-rays were reviewed of the right knee taken on 01/28 which shows significant medial joint space narrowing. Lesser noted laterally. Spurring medial and lateral off the tibia and femur more medially. Patellofemoral spurring is noted on the lateral view both superior and inferior articular surface. There is some rounded bony ossicles posteriorly as well as a small one anteriorly and some anterior spurring as well. Assessment and Plan Assessment Flareup of osteoarthritis right knee Problem List Unchanged Plan Treatment options were discussed with the patient. I talked her about cortisone injections which she's had in the past. I explained to her that should she is recovering from COVID there is concern about cortisone injections that is been brought up in the orthopedic literature. It could decrease her immunoresponse causing some recurrence of some of her symptoms. At this point with covid we just don't know for sure what injections could due to patient's recovering or patients who are not infected but could potentially become infected because of the decreased immunoresponse. After lengthy discussion and discussion with her she wants to hold off for an injection for now. I notified Dr. Carr. She has been on Mobic in the past and she may want to consider starting her back on the mobic. Also explained to her that some orthopedist who performed total knee joint arthroplasties we will hold off on proceeding with the surgery if they've had a recent cortisone injection. Final Diagonsis Osteoarthritis right knee Level of the visit: Level 3 RHIANNA MANZO MD Jan 31, 2020 13:15
--- NOTE | 2020-01-31 13:53 | Occupational Ther Daily Note ---
OT Current Status-Daily Note Subjective Pt laying in bed, agreeable to OT tx. Pt indicates her L arm is a little sore from getting a midline placed. Mental Status/Objective Patient Orientation: Person, Place, Eyes Open, Situation Attachments: Oxygen ADL-Treatment Therapy Code Descriptions/Definitions Functional [place] Measure: 0=Not Assessed/NA 4=Minimal Assistance 1=Total Assistance 5=Supervision or Setup 2=Maximal Assistance 6=Modified [place] 3=Moderate Assistance 7=Complete IndependenceSCALE: Activities may be completed with or without assistive devices. 4-Dmtnototfo-yepjfxr completes the activity by him/herself with no assistance from a helper. 5-Set-up or Clean-up Assistance-helper sets up or cleans up; patient completes activity. [place] assists only prior to or following the activity. 4-Supervision or Touching Assistance-helper provides verbal cues and/or touching/steadying and/or contact guard assistance as patient completes activity. Assistance may be provided throughout the activity or intermittently. 3-Partial/Moderate Assistance-helper does LESS THAN HALF the effort. [place] lifts, holds or supports trunk or limbs, but provides less than half the effort. 2-Substantial/Maximal Assistance-helper does MORE THAN HALF the effort. [place] lifts or holds trunk or limbs and provides more than half the effort. 8-Tosvipade-xrrkzk does ALL the effort. Patient does none of the effort to complete the activity. Or, the assistance of 2 or more helpers is required for the patient to complete the activity. If activity was not attempted, code reason: 7-Patient Refused. 9-Not Applicable-not attempted and the patient did not perform the activity before the current illness, exacerbation or injury. 10-Not Attempted due to Environmental Limitations-(lack of equipment, weather restraints, etc.). 88-Not Attempted due to Medical Conditions or Safety Concerns. Oral Hygiene (QC): 5 (set up at tray table.) Other Treatment Pt laying in bed, brushed teeth with set up assistance at tray table. Pt then washed her face with set up and used a shower cap with set up assistance. Pt able to use arms to scrub shower cap in her hair, then brushed her hair independently. Pt required rest breaks throughout tx. Post OT tx, pt laying in bed, call light in reach and all needs met. Education OT Patient Education: Correct positioning, Modified ADL techniques, Progress toward Goal/Update tx plan, Purpose of tx/functional activities Teaching Recipient: Patient Teaching Methods: Discussion Response to Teaching: Verbalize Understanding OT Short Term Goals Short Term Goals Time Frame: Feb 09, 2020 Toileting hygiene: 3 Lower body dressin Putting on/taking off footwear: 3 OT Calendering Machine Operator Goals Fpc Goals Time Frame: Feb 18, 2020 Eating (QC): 6 Oral Hygiene (QC): 6 Toileting Hygiene (QC): 6 Shower/Bathe Self (QC): 6 Upper Body Dressing (QC): 6 Lower Body Dressing (QC): 6 On/Off Footwear (QC): 6 Additional Goals: 1-Demonstrate ADL Tasks, 2-Verbalize Understanding, 3- ImproveStrength/Renny 1=Demonstrate adherence to instructed precautions during ADL tasks. 2=Patient will verbalize/demonstrate understanding of assistive devices/modifications for ADL. 3=Patient will improve strength/tolerance for activity to enable patient to perform ADL's. OT Education/Plan Problem List/Assessment Assessment: Decreased Activ Tolerance, Decreased UE Strength, Impaired I ADL's, Impaired Self-Care Skills Discharge Recommendations Plan/Recommendations: Continue POC Treatment Plan/Plan of Care Patient would benefit from OT for education, treatment and training to promote independence in ADL's, mobility, safety and/or upper extremity function for ADL's. Plan of Care: ADL Retraining, Functional Mobility, Group Exercise/Act as Ind, UE Funct Exercise/Act Treatment Duration: Feb 18, 2020 Frequency: At least 5 of 7 days/Wk (IRF) Estimated Hrs Per Day: 1.5 hours per day Agreement: Yes Rehab Potential: Fair Time/GCodes Start Time: 13:30 Stop Time: 14:00 Total Time Billed (hr/min): 30 Billed Treatment Time 1, ADL 2 ISIDRO MACIEL OT Jan 31, 2020 13:53
[2020-01-31] MEDS: IRON SUCROSE 200 MG/10 ML (VENOFER) VIAL IV SCH (14:02)
--- NOTE | 2020-01-31 14:29 | Physical Therapy Daily Note ---
PT Daily Note-Current Subjective Patient in bed pre tx, agrees to PT, has unrated pain in right knee along with swelling. Patient has a large wrinkle in her pad under her that is causing discomfort, with assist from nurse patient's pad is fixed. Appearance Patient in bed post tx with nurse call, phone, tray, all needs met, laying on right side for pressure relief Mental Status Patient Orientation: Person, Place, Situation Attachments: Oxygen Transfers SCALE: Activities may be completed with or without assistive devices. 4-Yinfgtgfro-slsrpbi completes the activity by him/herself with no assistance from a helper. 5-Set-up or Clean-up Assistance-helper sets up or cleans up; patient completes activity. [place] assists only prior to or following the activity. 4-Supervision or Touching Assistance-helper provides verbal cues and/or touching/steadying and/or contact guard assistance as patient completes activity. Assistance may be provided throughout the activity or intermittently. 3-Partial/Moderate Assistance-helper does LESS THAN HALF the effort. [place] lifts, holds or supports trunk or limbs, but provides less than half the effort. 2-Substantial/Maximal Assistance-helper does MORE THAN HALF the effort. [place] lifts or holds trunk or limbs and provides more than half the effort. 6-Paiyrwwsp-rieous does ALL the effort. Patient does none of the effort to complete the activity. Or, the assistance of 2 or more helpers is required for the patient to complete the activity. If activity was not attempted, code reason: 7-Patient Refused. 9-Not Applicable-not attempted and the patient did not perform the activity be fore the current illness, exacerbation or injury. 10-Not Attempted due to Environmental Limitations-(lack of equipment, weather restraints, etc.). 88-Not Attempted due to Medical Conditions or Safety Concerns. Exercises Supine Ex: Ankle pumps, Quad Set, Glut sets, Heel Slides (AAROM), Short Arc Quads (AAROM), Straight leg raise (AAROM), Hip abd/add (AAROM) Supine Reps: 20 Treatments repositioning, LE exercise Assessment Current Status: Poor Progress Patient needs several rest breaks due to fatigue. PT Short Term Goals Short Term Goals Time Frame: Feb 04, 2020 Roll Left & Right: 4 Sit to lyin Lying to sitting on side of be: 3 Sit to stand: 3 Chair/ede-fg-mwgug transfer: 3 Walk 10 feet: 3 PT Snf Goals Snf Goals PT Corporate Claims Examiner Goals Time Frame: Feb 18, 2020 Roll Left & Right (QC): 6 Sit to Lying (QC): 4 Lying-Sitting on Side/Bed(QC): 4 Sit to Stand (QC): 3 ([place]helby) Chair/Vuv-st-Ljlyk Xfer(QC): 3 ([place]) Toilet Transfer (QC): 3 ([place]) Car Transfer (QC): 3 ([place]) Does the Patient Walk: No and Walking Goal IS indicated Walk 10 feet (QC): 3 Walk 50ft with 2 Turns (QC): 3 Walk 150 ft (QC): 88 Walking 10ft on Uneven Surface: 88 1 Step (curb) (QC): 88 4 Steps (QC): 88 12 Steps (QC): 88 Picking up an Object (QC): 88 Wheel 50 feet with 2 turns (QC: 6 Wheel 150 feet: 6 PT Plan Problem List Problem List: Activity Tolerance, Functional Strength, Safety, Balance, Gait, Transfer, Bed Mobility, ROM Treatment/Plan Treatment Plan: Continue Plan of Care Treatment Plan: Bed Mobility, Education, Functional Activity Renny, Functional Strength, Group Therapy, Gait, Safety, Therapeutic Exercise, Transfers Treatment Duration: Feb 18, 2020 Frequency: At least 5 of 7 days/Wk (IRF) Estimated Hrs Per Day: 1.5 hours per day Patient and/or Family Agrees t: Yes Safety Risks/Education Patient Education: Correct Positioning, Safety Issues Teaching Recipient: Patient Teaching Methods: Demonstration, Discussion Response to Teaching: Reinforcement Needed Time/GCodes Time In: 1400 Time Out: 1430 Total Billed Treatment Time: 30 Total Billed Treatment 1 visit EX [id number] CUENCA PT Jan 31, 2020 14:29
--- NOTE | 2020-01-31 17:35 | NUR ---
"RD ASSESSMENT PMHx: pneumonia; COVID-19 (11/2019); hypercholesterolemia; HTN; GERD; hypothyroidism; CA(breast); PT INTERACTION: Pt was awake and pleasant during dietary consult for MST score. Pt states current appetite is fair. Note avg PO intake 72% x3d, per chart review. P states following a regular diet at home, and has no issues with chewing/swallowing food. Pt states some recent issues with diarrhea. Note last BM was 01/28, and pt currently on bowel regimen of colace BID, senna BID, and miralax BID, per chart review. Pt states recent 30# wt loss. Note unable to determine recent wt hx, per chart review. Upon visual assessment, pt appears to be well nourished with no visible signs of muscle/fat wasting and a BMI of 32.6 (Obese, class I for age). Given PO intake, wt hx, and visual assessment, pt does not meet criteria for malnutrition per ASPEN guidelines. ABNORMAL NUTRITION-RELATED LAB VALUES LOW: alkphos 27; Pro 5.1; alb 2.9; HIGH: CL 108; Est. kcal needs: 6995-3184 | 15-20 kcal/kg Est. Pro needs: 78-94 g Pro | 1.0-1.2 g Pro/kg PES STATEMENT: Inadequate oral intake (NI-2.1) related to loss of appetite, and diarrhea, as evidenced by pt interview, and avg PO intake 72% x3d. INTERVENTION: Continue with current diet order of Regular diet. Continue with current supplementation order of Ensure Enlive (vary) with meals TID. Provides 350 kcal and 20 g Pro per serving. Will continue to follow and reassess as pt needs, intake, and status change. Patricia LIMA, MS RD LD [phone] cell"
[2020-01-31 18:03] VITALS: BP 125/60
--- NOTE | 2020-01-31 19:33 | NUR ---
Dr Carr notified PICC placement in left arm. New order to dc PICC. Herminia received report and stated she would dc PICC.
[2020-01-31] MEDS: SERTRALINE 50 MG (ZOLOFT) TABLET PO SCH (22:32)
[2020-01-31] MEDS: MELATONIN 3 MG TABLET PO PRN (22:32)
[2020-02-01] MEDS: LIDOCAINE 4% (SALONPAS) PATCH TP SCH ×2 (05:21→17:16)
--- NOTE | 2020-02-01 06:02 | PM&R Progress Note ---
Subjective HPI/CC On Admission Date Seen by Provider: Feb 01, 2020 Time Seen by Provider: 09:00 Subjective/Events-last exam 02/01/20: Right knee pain continues but considering the risk for complications from steroid injection after Covid, she will be managing Overall doing pretty well on 2 L of Oxygen Will replace Picc line since it was placed in the arm where she has had her previous mastectomy 01/31/20: Dr. Dent graciously agreed to see her for right knee pain and will initiate an injection Hgb 9.1 so midline will be placed with iron infusions 2 L of oxygen maintained After rounds Dr Dent updated me on the fact that no injection initiated due to high risk following COVID 01/30/20: Right knee pain continues Will reach out to Dr Dent tomorrow Tapazole restarted Midline needed for iron infusions Severe right knee pain 11/26 today so adjusted her pain meds and xray noted severe OA Dr Scott usually gives her a right knee injections every 3 months and she is overdue I will try to have ortho give pain injection Friday Tapazole not on her list and she has Graves disease she states O2 at 80% so will maintain 2L/min O2 Checking iron level since hgb 9.1 Adding TSH FT4 to labs BM today loose Review of Systems General: Fatigue, Malaise Pulmonary: Dyspnea Neurological: Weakness, Incoordination Objective Exam Vital Signs Vital Signs Date Time Temp Pulse Resp B/P (MAP) Pulse Ox O2 Delivery O2 Flow Rate FiO2 02/01/20 21:20 Nasal Cannula 2.00 02/01/20 18:00 36.6 86 18 128/68 (88) 97 Capillary Refill : Less Than 3 Seconds General Appearance: No Apparent Distress, WD/WN, Chronically ill HEENT: PERRL/EOMI, Normal ENT Inspection, Pharynx Normal Neck: Full Range of Motion, Normal Inspection, Non Tender, Supple, Carotid Bruit Respiratory: Chest Non Tender, Lungs Clear, No Accessory Muscle Use, No Respiratory Distress, Decreased Breath Sounds Cardiovascular: Regular Rate, Rhythm, No Edema, No Gallop, No JVD, No Murmur, Normal Peripheral Pulses Gastrointestinal: Normal Bowel Sounds, No Organomegaly, No Pulsatile Mass, Non Tender, Soft Back: Normal Inspection, No CVA Tenderness, No Vertebral Tenderness Extremity: Normal Capillary Refill, Normal Inspection, Normal Range of Motion, Non Tender, No Calf Tenderness, No Pedal Edema Neurologic/Psychiatric: Alert, Oriented x3, Normal Mood/Affect, medical records receptionist II-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 FIM Transfers Therapy Code Descriptions/Definitions Functional [place] Measure: 0=Not Assessed/NA 4=Minimal Assistance 1=Total Assistance 5=Supervision or Setup 2=Maximal Assistance 6=Modified [place] 3=Moderate Assistance 7=Complete IndependenceSCALE: Activities may be completed with or without assistive devices. 6-Niuacnqshh-szqkrob completes the activity by him/herself with no assistance from a helper. 5-Set-up or Clean-up Assistance-helper sets up or cleans up; patient completes activity. [place] assists only prior to or following the activity. 4-Supervision or Touching Assistance-helper provides verbal cues and/or touching/steadying and/or contact guard assistance as patient completes activity. Assistance may be provided throughout the activity or intermittently. 3-Partial/Moderate Assistance-helper does LESS THAN HALF the effort. [place] lifts, holds or supports trunk or limbs, but provides less than half the effort. 2-Substantial/Maximal Assistance-helper does MORE THAN HALF the effort. [place] lifts or holds trunk or limbs and provides more than half the effort. 7-Vpftkqhpq-odsrkk does ALL the effort. Patient does none of the effort to complete the activity. Or, the assistance of 2 or more helpers is required for the patient to complete the activity. If activity was not attempted, code reason: 7-Patient Refused. 9-Not Applicable-not attempted and the patient did not perform the activity before the current illness, exacerbation or injury. 10-Not Attempted due to Environmental Limitations-(lack of equipment, weather restraints, etc.). 88-Not Attempted due to Medical Conditions or Safety Concerns. Roll Left to Right (QC): 3 Sit to Lying (QC): 2 Sit to Stand (QC): 2 Chair/Sxu-ms-Ybfdd Xfer(QC): 2 Car Transfer (QC): 1 Gait Training Walk 10 feet (QC): 88 Walk 50 ft with 2 Turns(QC): 88 Walk 150 ft (QC): 88 Walking 10ft/uneven surface-QC: 88 Wheelchair Training Does the Pt Use a Wheelchair?: Yes Distance: 50'x2 Wheel 50 ft with 2 turns (QC): 3 Wheel 150 ft (QC): 88 Type of Wheelchair: Manual Stair Training 1 Step (curb) (QC): 88 4 Steps (QC): 88 12 Steps (QC): 88 Balance Picking up an Object (QC): 88 ADL-Treatment Eating (QC): 6 (Pt reports independent with lunch.) Oral Hygiene (QC): 5 (set up at tray table.) Shower/Bathe Self (QC): 2 (Pt washed UEs, chest and abdomen, required assistance with periarea, LEs, and buttocks.) Upper Body Dressing (QC): 3 (Min A donning/doffing tobacco sample puller shirt.) Lower Body Dressing (QC): 1 (Pt required assistance threading BLE into brief, then pt rolled side to side in bed as OT managed up.) On/Off Footwear (QC): 1 (total assist donning shoes.) Toileting Hygiene (QC): 1 (based on clinical judgement, pt would require assistance managing clothing and performing hygiene.) Assessment/Plan Assessment and Plan Assess & Plan/Chief Complaint Assessment: Critical illness debility from COVID-19 dx 12/11/19 OA h/o breast cancer Allergic rhinitis HTN GERD Depression Lung nodules [facility] 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
[2020-02-01 06:15] VITALS: BP 128/58
[2020-02-01] MEDS: ENOXAPARIN 40 MG/0.4 ML (LOVENOX) SYR SC SCH (08:26)
[2020-02-01] MEDS: GABAPENTIN 300 MG (NEURONTIN) CAP PO SCH ×3 (08:26→21:15)
[2020-02-01] MEDS: SILDENAFIL 20 MG (REVATIO) TAB NON-FORMULARY PO SCH ×2 (08:26→21:16)
[2020-02-01] MEDS: METHIMAZOLE 5 MG PO SCH (08:26)
[2020-02-01] MEDS: CYANOCOBALAMIN 1,000 MCG (VITAMIN B-12) TABLET PO SCH (08:26)
[2020-02-01] MEDS: VITAMIN D3 125 MCG (5,000 UNITS) CAPSULE PO SCH (08:26)
[2020-02-01] MEDS: PANTOPRAZOLE 40 MG (PROTONIX) TAB PO SCH ×2 (08:27→21:15)
[2020-02-01] MEDS: NIFEdipine ER 30 MG (PROCARDIA XL) TAB PO SCH (08:27)
[2020-02-01] MEDS: DOCUSATE SODIUM 100 MG (COLACE) CAP PO SCH ×2 (08:27→21:14)
[2020-02-01] MEDS: LACTOBACILLUS ACIDOPHILUS (PROBIOTIC) CAPSULE PO SCH ×2 (08:27→21:15)
[2020-02-01] MEDS: VITAMIN B COMP W C PO SCH ×2 (08:29→10:00)
[2020-02-01] MEDS: FOLIC ACID PO SCH ×2 (08:29→10:00)
[2020-02-01] MEDS: [UNRECOGNIZED DRUG - OTHER] PO SCH ×2 (08:29→10:00)
[2020-02-01] MEDS: polyethylene glycoL POWDER 17 GM (MIRALAX) PACK PO SCH ×2 (08:29→21:14)
[2020-02-01] MEDS: DICLOFENAC 1% GEL 100 GM (VOLTAREN) TUBE TOP SCH ×4 (08:30→21:22)
[2020-02-01] MEDS ORDERED: BETAMETHASONE ACE/NA PHOS 6 MG/ML (CELESTONE SOLUSPAN) IM SCH (09:00)
[2020-02-01] MEDS: SENNA W/DOCUSATE (SENOKOT S) TABLET PO SCH ×2 (09:59→21:14)
--- NOTE | 2020-02-01 10:34 | Occupational Ther Daily Note ---
OT Current Status-Daily Note Subjective Pt laying in bed stating she was on the bedpan but had finished. She has more pain in her R knee today, but did not provide pain rating. Pt appeared hesitant with therapy today stating she feels like she needs to take it slow, OT/PT educated pt on the purpose and benefits of rehab including intensive therapy to reach her goal of returning home, she verbalized understanding. ADL-Treatment Therapy Code Descriptions/Definitions Functional [place] Measure: 0=Not Assessed/NA 4=Minimal Assistance 1=Total Assistance 5=Supervision or Setup 2=Maximal Assistance 6=Modified [place] 3=Moderate Assistance 7=Complete IndependenceSCALE: Activities may be completed with or without assistive devices. 4-Evkicjhrux-zioqjdq completes the activity by him/herself with no assistance from a helper. 5-Set-up or Clean-up Assistance-helper sets up or cleans up; patient completes activity. [place] assists only prior to or following the activity. 4-Supervision or Touching Assistance-helper provides verbal cues and/or touching/steadying and/or contact guard assistance as patient completes acti vity. Assistance may be provided throughout the activity or intermittently. 3-Partial/Moderate Assistance-helper does LESS THAN HALF the effort. [place] lifts, holds or supports trunk or limbs, but provides less than half the effort. 2-Substantial/Maximal Assistance-helper does MORE THAN HALF the effort. [place] lifts or holds trunk or limbs and provides more than half the effort. 1-Bwvxhypql-kwvuha does ALL the effort. Patient does none of the effort to complete the activity. Or, the assistance of 2 or more helpers is required for the patient to complete the activity. If activity was not attempted, code reason: 7-Patient Refused. 9-Not Applicable-not attempted and the patient did not perform the activity before the current illness, exacerbation or injury. 10-Not Attempted due to Environmental Limitations-(lack of equipment, weather restraints, etc.). 88-Not Attempted due to Medical Conditions or Safety Concerns. Shower/Bathe Self (QC): 2 (Pt able to wash BUEs, chest and abdomen. Required assistance with washing BLEs, periarea, buttocks.) Upper Body Dressing (QC): 3 (Pt able to thread BUEs into shirt and overhead. Required min A with pulling shirt down over abdomen.) Lower Body Dressing (QC): 1 (assist to thread BLEs into pants, and assist to manage up during rolling at bed level.) On/Off Footwear: 3 (Pt able to don slip on shoes seated EOB, min A with back of shoes.) Toileting Hygiene (QC): 1 (Assist for cleaning after BM, and assist managing clothing.) Other Treatment OT/PT cotreat due to skill of 2 clinicians required which a rehabilitation services manager could not perform in order to coordinate UE/LE with tasks, and due to pt's limitations in functional strength, endurance, mobility. OT focused on ADLs, UE placement, cues for sequencing and safety and assistance with transfers while PT focused on LE placement, gross overall movements, and transfers. Pt on bed avery, rolled to R side. OT performed hygiene. Pt rolled back on her back and completed sponge bath and dressing at bed level. Pt transferred supine to sit EOB, donned shoes and shirt managed down over abdomen. Pt completed slide board transfer from EOB to w/c, then self propelled w/c around [facility] common area. Pt required min A with w/c management in order to maintain straight line and turns. Pt educated on hand placement in order to complete turns, and pt practiced turning multiple times towards R & L sides. Pt took rest breaks as needed. Pt returned to her room, performed SPT from w/c to recliner. Waffle cushion placed in recliner due to pt feeling like chair increased pressure on buttocks. Post tx, pt seated in recliner, call light in reach and all needs met. Education OT Patient Education: Correct positioning, Energy conservation, Modified ADL techniques, Progress toward Goal/Update tx plan, Purpose of tx/functional activities, Rehab process, Transfer techniques, W/C management Teaching Recipient: Patient Teaching Methods: Discussion Response to Teaching: Verbalize Understanding OT Short Term Goals Short Term Goals Time Frame: Feb 09, 2020 Toileting hygiene: 3 Lower body dressin Putting on/taking off footwear: 3 OT Ic Designer [employer] Goals Nursing Home Goals Time Frame: Feb 18, 2020 Eating (QC): 6 Oral Hygiene (QC): 6 Toileting Hygiene (QC): 6 Shower/Bathe Self (QC): 6 Upper Body Dressing (QC): 6 Lower Body Dressing (QC): 6 On/Off Footwear (QC): 6 Additional Goals: 1-Demonstrate ADL Tasks, 2-Verbalize Understanding, 3- ImproveStrength/Renny 1=Demonstrate adherence to instructed precautions during ADL tasks. 2=Patient will verbalize/demonstrate understanding of assistive devices/modifications for ADL. 3=Patient will improve strength/tolerance for activity to enable patient to perform ADL's. OT Education/Plan Problem List/Assessment Assessment: Decreased Activ Tolerance, Decreased UE Strength, Impaired Funct Balance, Impaired I ADL's, Impaired Self-Care Skills Discharge Recommendations Plan/Recommendations: Continue POC Treatment Plan/Plan of Care Patient would benefit from OT for education, treatment and training to promote independence in ADL's, mobility, safety and/or upper extremity function for ADL's. Plan of Care: ADL Retraining, Functional Mobility, Group Exercise/Act as Ind, UE Funct Exercise/Act Treatment Duration: Feb 18, 2020 Frequency: At least 5 of 7 days/Wk (IRF) Estimated Hrs Per Day: 1.5 hours per day Agreement: Yes Rehab Potential: Fair Time/GCodes Start Time: 08:00 Stop Time: 09:00 Total Time Billed (hr/min): 60 Billed Treatment Time 1, ADL 2 (30'), FA 2 (30') ISIDRO MACIEL OT Feb 01, 2020 10:34
--- NOTE | 2020-02-01 11:16 | Physical Therapy Daily Note ---
PT Daily Note-Current Subjective Pt laying in bed stating she was on the bedpan but had finished. She has more pain in her R knee today, but did not provide pain rating. Pt appeared hesitant with therapy today stating she feels like she needs to take it slow, OT/PT educated pt on the purpose and benefits of rehab including intensive therapy to reach her goal of returning home, she verbalized understanding. Pain Location: Right Location Body Site: Knee Pain Description: Ache Comment: Pt doesn't rate. Mental Status Patient Orientation: Person, Place, Situation Transfers SCALE: Activities may be completed with or without assistive devices. 8-Fxcpbswley-rjtfvjf completes the activity by him/herself with no assistance from a helper. 5-Set-up or Clean-up Assistance-helper sets up or cleans up; patient completes activity. [place] assists only prior to or following the activity. 4-Supervision or Touching Assistance-helper provides verbal cues and/or touching/steadying and/or contact guard assistance as patient completes activity. Assistance may be provided throughout the activity or intermittently. 3-Partial/Moderate Assistance-helper does LESS THAN HALF the effort. [place] lifts, holds or supports trunk or limbs, but provides less than half the effort. 2-Substantial/Maximal Assistance-helper does MORE THAN HALF the effort. [place] lifts or holds trunk or limbs and provides more than half the effort. 6-Rnnasnlmg-xbzytt does ALL the effort. Patient does none of the effort to complete the activity. Or, the assistance of 2 or more helpers is required for the patient to complete the activity. If activity was not attempted, code reason: 7-Patient Refused. 9-Not Applicable-not attempted and the patient did not perform the activity before the current illness, exacerbation or injury. 10-Not Attempted due to Environmental Limitations-(lack of equipment, weather restraints, etc.). 88-Not Attempted due to Medical Conditions or Safety Concerns. Roll Left & Right (QC): 4 Lying to Sitting/Side of Bed(Q: 3 Sit to Stand (QC): 2 Chair/Ypb-is-Fwgcc Xfer(QC): 3 Pt uses Slide board to transfer from EOB to [facility] but SPT from [facility] to recliner. Weight Bearing Full Weight Bearing Full Weight Bearing Wheelchair Training Does the Pt Use a Wheelchair?: Yes Wheel 50 ft with 2 turns (QC): 4 Wheel 150 ft (QC): 4 Type of Wheelchair: Manual Treatments OT/PT cotreat due to skill of 2 clinicians required which a rehabilitation manager could not perform in order to coordinate UE/LE with tasks, and due to pt's limitations in functional strength, endurance, mobility. OT focused on ADLs, UE placement, cues for sequencing and safety and assistance with transfers while PT focused on LE placement, gross overall movements, and transfers. Pt on bed avery, rolled to R side. OT performed hygiene. Pt rolled back on her back and completed sponge bath and dressing at bed level. Pt transferred supine to sit EOB, donned shoes and shirt managed down over abdomen. Pt completed slide board transfer from EOB to w/c, then self propelled w/c around [facility] common area. Pt required min A with w/c management in order to maintain straight line and turns. Pt educated on hand placement in order to complete turns, and pt practiced turning multiple times towards R & L sides. Pt took rest breaks as needed. Pt returned to her room, performed SPT from w/c to recliner. Waffle cushion placed in recliner due to pt feeling like chair increased pressure on buttocks. Post tx, pt seated in recliner, call light in reach and all needs met. Assessment Current Status: Fair Progress Pt is weak and needs assistance for transfers and mobility. PT Short Term Goals Short Term Goals Time Frame: Feb 04, 2020 Roll Left & Right: 4 Sit to lyin Lying to sitting on side of be: 3 Sit to stand: 3 Chair/fyn-od-opoon transfer: 3 Walk 10 feet: 3 PT Mcc Goals Mcc Goals PT Manager Residential Goals Time Frame: Feb 18, 2020 Roll Left & Right (QC): 6 Sit to Lying (QC): 4 Lying-Sitting on Side/Bed(QC): 4 Sit to Stand (QC): 3 ([place]) Chair/Pgi-jm-Hbxwd Xfer(QC): 3 ([place]) Toilet Transfer (QC): 3 ([place]) Car Transfer (QC): 3 ([place]) Does the Patient Walk: No and Walking Goal IS indicated Walk 10 feet (QC): 3 Walk 50ft with 2 Turns (QC): 3 Walk 150 ft (QC): 88 Walking 10ft on Uneven Surface: 88 1 Step (curb) (QC): 88 4 Steps (QC): 88 12 Steps (QC): 88 Picking up an Object (QC): 88 Wheel 50 feet with 2 turns (QC: 6 Wheel 150 feet: 6 PT Plan Problem List Problem List: Activity Tolerance, Functional Strength Treatment/Plan Treatment Plan: Continue Plan of Care Treatment Plan: Bed Mobility, Education, Functional Activity Renny, Functional Strength, Group Therapy, Gait, Safety, Therapeutic Exercise, Transfers Treatment Duration: Feb 18, 2020 Frequency: At least 5 of 7 days/Wk (IRF) Estimated Hrs Per Day: 1.5 hours per day Patient and/or Family Agrees t: Yes Safety Risks/Education Patient Education: Transfer Techniques, Correct Positioning, Safety Issues Teaching Recipient: Patient Teaching Methods: Discussion Response to Teaching: Verbalize Understanding Time/GCodes Time In: 800 Time Out: 900 Total Billed Treatment Time: 60 Total Billed Treatment 1, FA x2 (35m) & [facility] (25m) SIENNA POND PTA Feb 01, 2020 11:15
--- NOTE | 2020-02-01 14:06 | Occupational Ther Daily Note ---
OT Current Status-Daily Note Subjective Pt seated in recliner, agreeable to OT tx. Pt tearful throughout tx due to fear of having to go to a longterm. OT educated pt on progress she has made during last few days, and process of rehab meetings. Pt appeared more relaxed after talking with this therapist. Mental Status/Objective Attachments: Oxygen ADL-Treatment Therapy Code Descriptions/Definitions Functional [place] Measure: 0=Not Assessed/NA 4=Minimal Assistance 1=Total Assistance 5=Supervision or Setup 2=Maximal Assistance 6=Modified [place] 3=Moderate Assistance 7=Complete IndependenceSCALE: Activities may be completed with or without assistive devices. 7-Pichgnlsdv-gygpeso completes the activity by him/herself with no assistance from a helper. 5-Set-up or Clean-up Assistance-helper sets up or cleans up; patient completes activity. [place] assists only prior to or following the activity. 4-Supervision or Touching Assistance-helper provides verbal cues and/or touching/steadying and/or contact guard assistance as patient completes activity. Assistance may be provided throughout the activity or intermittently. 3-Partial/Moderate Assistance-helper does LESS THAN HALF the effort. [place] lifts, holds or supports trunk or limbs, but provides less than half the effort. 2-Substantial/Maximal Assistance-helper does MORE THAN HALF the effort. [place] lifts or holds trunk or limbs and provides more than half the effort. 8-Umumplayg-hhcppr does ALL the effort. Patient does none of the effort to complete the activity. Or, the assistance of 2 or more helpers is required for the patient to complete the activity. If activity was not attempted, code reason: 7-Patient Refused. 9-Not Applicable-not attempted and the patient did not perform the activity before the current illness, exacerbation or injury. 10-Not Attempted due to Environmental Limitations-(lack of equipment, weather restraints, etc.). 88-Not Attempted due to Medical Conditions or Safety Concerns. Lower Body Dressing (QC): 1 (Assist to doff pants, mod A rolling side to side.) Toileting Hygiene (QC): 1 (Assist to manage clothing and hygiene after bed avery) Other Treatment Pt seated on recliner, stating need to urinate. Pt attempted SPT from recliner to BSC but unable to lift buttocks from chair. Pt completed SB transfer from recliner to EOB, mod A. Once EOB, pt tearful stating she does not want to go to a longterm. OT and pt discussed pt's progress during last few days and the process of the weekly rehab meetings. Pt able to sit unsupported EOB ~10 mins during discussion. Pt then transferred supine, assist with BLEs. Pt rolled side to side with mod A to manage clothing down and for bed avery placement. Pt then rolled side to side to remove bed avery, complete hygiene, and manage brief up. Post Tx, pt laying in bed, call light in reach and all needs met. Education OT Patient Education: Correct positioning, Modified ADL techniques, Progress toward Goal/Update tx plan, Purpose of tx/functional activities Teaching Recipient: Patient Teaching Methods: Discussion Response to Teaching: Verbalize Understanding OT Short Term Goals Short Term Goals Time Frame: Feb 09, 2020 Toileting hygiene: 3 Lower body dressin Putting on/taking off footwear: 3 OT Jail Goals Tray Delivery Aide Goals Time Frame: Feb 18, 2020 Eating (QC): 6 Oral Hygiene (QC): 6 Toileting Hygiene (QC): 6 Shower/Bathe Self (QC): 6 Upper Body Dressing (QC): 6 Lower Body Dressing (QC): 6 On/Off Footwear (QC): 6 Additional Goals: 1-Demonstrate ADL Tasks, 2-Verbalize Understanding, 3- ImproveStrength/Renny 1=Demonstrate adherence to instructed precautions during ADL tasks. 2=Patient will verbalize/demonstrate understanding of assistive devices/modifications for ADL. 3=Patient will improve strength/tolerance for activity to enable patient to perform ADL's. OT Education/Plan Problem List/Assessment Assessment: Decreased Activ Tolerance, Decreased UE Strength, Impaired Funct Balance, Impaired I ADL's, Impaired Self-Care Skills Discharge Recommendations Plan/Recommendations: Continue POC Treatment Plan/Plan of Care Patient would benefit from OT for education, treatment and training to promote independence in ADL's, mobility, safety and/or upper extremity function for ADL's. Plan of Care: ADL Retraining, Functional Mobility, Group Exercise/Act as Ind, UE Funct Exercise/Act Treatment Duration: Feb 18, 2020 Frequency: At least 5 of 7 days/Wk (IRF) Estimated Hrs Per Day: 1.5 hours per day Agreement: Yes Rehab Potential: Fair Time/GCodes Start Time: 13:00 Stop Time: 13:40 Total Time Billed (hr/min): 40 Billed Treatment Time 1, ADL 3 ISIDRO MACIEL OT Feb 01, 2020 14:06
[2020-02-01] MEDS: ALPRAZolam 0.25 MG (XANAX) TAB PO PRN (14:21)
--- NOTE | 2020-02-01 14:56 | Physical Therapy Daily Note ---
PT Daily Note-Current Subjective Pt is coming off bed avery with OT assistance upon arrival. Pt agrees to PT. Pain Location: Right, Left Location Body Site: Knee Pain Description: Ache, Tightness Comment: Pt reports discomfort with Ex., not rated. Mental Status Patient Orientation: Person, Place Attachments: Oxygen Transfers SCALE: Activities may be completed with or without assistive devices. 8-Zwyxfyrxiu-npnjtnb completes the activity by him/herself with no assistance from a helper. 5-Set-up or Clean-up Assistance-helper sets up or cleans up; patient completes activity. [place] assists only prior to or following the activity. 4-Supervision or Touching Assistance-helper provides verbal cues and/or touching/steadying and/or contact guard assistance as patient completes activity. Assistance may be provided throughout the activity or intermittently. 3-Partial/Moderate Assistance-helper does LESS THAN HALF the effort. Independence lifts, holds or supports trunk or limbs, but provides less than half the effort. 2-Substantial/Maximal Assistance-helper does MORE THAN HALF the effort. [place] lifts or holds trunk or limbs and provides more than half the effort. 8-Pxqvwrifh-yqfukm does ALL the effort. Patient does none of the effort to complete the activity. Or, the assistance of 2 or more helpers is required for the patient to complete the activity. If activity was not attempted, code reason: 7-Patient Refused. 9-Not Applicable-not attempted and the patient did not perform the activity before the current illness, exacerbation or injury. 10-Not Attempted due to Environmental Limitations-(lack of equipment, weather restraints, etc.). 88-Not Attempted due to Medical Conditions or Safety Concerns. Roll Left & Right (QC): 4 Weight Bearing Full Weight Bearing Full Weight Bearing Exercises Supine Ex: Ankle pumps, Quad Set, Glut sets, Heel Slides, Straight leg raise, Hip abd/add Supine Reps: 15 Treatments Pt dons [facility] gown since she is due to have Midline placed. Pt completes Supine Ex with RB as needed. Pt asked to be placed on bed avery again at end of tx. All needs met, call light in hand. Pt will use call light when finished. Assessment Current Status: Good Progress Pt fatigues easily and needs assistance especially with R LE due to weakness & tightness. PT Short Term Goals Short Term Goals Time Frame: Feb 04, 2020 Roll Left & Right: 4 Sit to lyin Lying to sitting on side of be: 3 Sit to stand: 3 Chair/rql-cs-aseui transfer: 3 Walk 10 feet: 3 PT Slot Operations Manager Goals Slot Operations Manager Goals PT Slot Operations Manager Goals Time Frame: Feb 18, 2020 Roll Left & Right (QC): 6 Sit to Lying (QC): 4 Lying-Sitting on Side/Bed(QC): 4 Sit to Stand (QC): 3 (Shelby) Chair/Tjo-le-Zhrna Xfer(QC): 3 (Shelby) Toilet Transfer (QC): 3 (Shelby) Car Transfer (QC): 3 (Shelby) Does the Patient Walk: No and Walking Goal IS indicated Walk 10 feet (QC): 3 Walk 50ft with 2 Turns (QC): 3 Walk 150 ft (QC): 88 Walking 10ft on Uneven Surface: 88 1 Step (curb) (QC): 88 4 Steps (QC): 88 12 Steps (QC): 88 Picking up an Object (QC): 88 Wheel 50 feet with 2 turns (QC: 6 Wheel 150 feet: 6 PT Plan Problem List Problem List: Activity Tolerance, Functional Strength, Transfer Treatment/Plan Treatment Plan: Continue Plan of Care Treatment Plan: Bed Mobility, Education, Functional Activity Renny, Functional Strength, Group Therapy, Gait, Safety, Therapeutic Exercise, Transfers Treatment Duration: Feb 18, 2020 Frequency: At least 5 of 7 days/Wk (IRF) Estimated Hrs Per Day: 1.5 hours per day Patient and/or Family Agrees t: Yes Safety Risks/Education Patient Education: Transfer Techniques, Correct Positioning, Safety Issues Teaching Recipient: Patient Teaching Methods: Discussion Response to Teaching: Verbalize Understanding Time/GCodes Time In: 1340 Time Out: 1400 Total Billed Treatment Time: 20 Total Billed Treatment 1, EX (20m) SIENNA POND MANAGER PROGRAM Feb 01, 2020 14:56
[2020-02-01 18:00] VITALS: BP 128/68
[2020-02-01] MEDS ORDERED: PATIENT MAY USE OWN MEDS, ALL MC SCH (18:45)
--- NOTE | 2020-02-01 19:21 | NUR ---
Bedside report received from FIDEL DEE, assume care of pt
[2020-02-01] MEDS: SERTRALINE 50 MG (ZOLOFT) TABLET PO SCH (21:15)
--- NOTE | 2020-02-01 21:17 | NUR ---
Pt refused Colace, Miralax & Senokot, c/o pain to Rt knee, pain level 8/10 on numeric scale, Oxyir 5mg given
[2020-02-01] MEDS: MICONAZOLE 2% POWDER (DESENEX AF) 90 GM TOP SCH (21:23)
--- NOTE | 2020-02-01 22:05 | NUR ---
Resting quietly in bed, pain level 0/10 on CNPI SCALE
[2020-02-02 05:45] VITALS: BP 137/49
--- NOTE | 2020-02-02 06:55 | NUR ---
c/o rt knee pain, level 7/10 on numeric scale, Oxyir 5mg given
[2020-02-02] MEDS: polyethylene glycoL POWDER 17 GM (MIRALAX) PACK PO SCH ×2 (08:03→19:57)
[2020-02-02] MEDS: VITAMIN D3 125 MCG (5,000 UNITS) CAPSULE PO SCH (08:10)
[2020-02-02] MEDS: NIFEdipine ER 30 MG (PROCARDIA XL) TAB PO SCH (08:10)
[2020-02-02] MEDS: CYANOCOBALAMIN 1,000 MCG (VITAMIN B-12) TABLET PO SCH (08:10)
[2020-02-02] MEDS: SENNA W/DOCUSATE (SENOKOT S) TABLET PO SCH ×2 (08:10→21:16)
[2020-02-02] MEDS: DOCUSATE SODIUM 100 MG (COLACE) CAP PO SCH ×2 (08:10→21:16)
[2020-02-02] MEDS: GABAPENTIN 300 MG (NEURONTIN) CAP PO SCH ×3 (08:10→21:15)
[2020-02-02] MEDS: LACTOBACILLUS ACIDOPHILUS (PROBIOTIC) CAPSULE PO SCH ×2 (08:10→21:15)
[2020-02-02] MEDS: METHIMAZOLE 5 MG PO SCH (08:10)
[2020-02-02] MEDS: LIDOCAINE 4% (SALONPAS) PATCH TP SCH ×2 (08:10→21:26)
[2020-02-02] MEDS: PANTOPRAZOLE 40 MG (PROTONIX) TAB PO SCH ×2 (08:10→21:15)
[2020-02-02] MEDS: DICLOFENAC 1% GEL 100 GM (VOLTAREN) TUBE TOP SCH ×4 (08:11→21:18)
[2020-02-02] MEDS: MICONAZOLE 2% POWDER (DESENEX AF) 90 GM TOP SCH ×2 (08:11→21:26)
[2020-02-02] MEDS: ENOXAPARIN 40 MG/0.4 ML (LOVENOX) SYR SC SCH (08:11)
[2020-02-02] MEDS: SILDENAFIL 20 MG (REVATIO) TAB NON-FORMULARY PO SCH ×2 (08:12→21:14)
--- NOTE | 2020-02-02 08:56 | PM&R Progress Note ---
Subjective HPI/CC On Admission Date Seen by Provider: Feb 02, 2020 Time Seen by Provider: 09:00 Subjective/Events-last exam : Pt doing pretty well Participating in therapy Very motivated to improve Maintained on O2 2 liters 02/01/20: Right knee pain continues but considering the risk for complications from steroid injection after Covid, she will be managing Overall doing pretty well on 2 L of Oxygen Will replace Picc line since it was placed in the arm where she has had her previous mastectomy 01/31/20: Dr. Dent graciously agreed to see her for right knee pain and will initiate an injection Hgb 9.1 so midline will be placed with iron infusions 2 L of oxygen maintained After rounds Dr Dent updated me on the fact that no injection initiated due to high risk following COVID 01/30/20: Right knee pain continues Will reach out to Dr Dent tomorrow Tapazole restarted Midline needed for iron infusions Severe right knee pain 11/26 today so adjusted her pain meds and xray noted severe OA Dr Scott usually gives her a right knee injections every 3 months and she is overdue I will try to have ortho give pain injection Friday Tapazole not on her list and she has Graves disease she states O2 at 80% so will maintain 2L/min O2 Checking iron level since hgb 9.1 Adding TSH FT4 to labs BM today loose Review of Systems General: Fatigue, Malaise Pulmonary: Dyspnea Musculoskeletal: leg pain Objective Exam Vital Signs Vital Signs Date Time Temp Pulse Resp B/P (MAP) Pulse Ox O2 Delivery O2 Flow Rate FiO2 02/03/20 05:41 36.4 70 16 144/59 (87) 97 Nasal Cannula 2.00 Capillary Refill : Less Than 3 Seconds General Appearance: No Apparent Distress, WD/WN, Chronically ill HEENT: PERRL/EOMI, Normal ENT Inspection, Pharynx Normal Neck: Full Range of Motion, Normal Inspection, Non Tender, Supple, Carotid Bruit Respiratory: Chest Non Tender, Lungs Clear, No Accessory Muscle Use, No Respiratory Distress, Decreased Breath Sounds Cardiovascular: Regular Rate, Rhythm, No Edema, No Gallop, No JVD, No Murmur, Normal Peripheral Pulses Gastrointestinal: Normal Bowel Sounds, No Organomegaly, No Pulsatile Mass, Non Tender, Soft Back: Normal Inspection, No CVA Tenderness, No Vertebral Tenderness Extremity: Normal Capillary Refill, Normal Inspection, Normal Range of Motion, Non Tender, No Calf Tenderness, No Pedal Edema Neurologic/Psychiatric: Alert, Oriented x3, Normal Mood/Affect, craft recruiter II-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 FIM Transfers Therapy Code Descriptions/Definitions Functional [place] Measure: 0=Not Assessed/NA 4=Minimal Assistance 1=Total Assistance 5=Supervision or Setup 2=Maximal Assistance 6=Modified [place] 3=Moderate Assistance 7=Complete IndependenceSCALE: Activities may be completed with or without assistive devices. 7-Vbhxzpzjbw-dygbcgv completes the activity by him/herself with no assistance from a helper. 5-Set-up or Clean-up Assistance-helper sets up or cleans up; patient completes activity. [place] assists only prior to or following the activity. 4-Supervision or Touching Assistance-helper provides verbal cues and/or touching/steadying and/or contact guard assistance as patient completes activity. Assistance may be provided throughout the activity or intermittently. 3-Partial/Moderate Assistance-helper does LESS THAN HALF the effort. [place] lifts, holds or supports trunk or limbs, but provides less than half the effort. 2-Substantial/Maximal Assistance-helper does MORE THAN HALF the effort. [place] lifts or holds trunk or limbs and provides more than half the effort. 6-Dmqzcmsfk-kerjmv does ALL the effort. Patient does none of the effort to complete the activity. Or, the assistance of 2 or more helpers is required for the patient to complete the activity. If activity was not attempted, code reason: 7-Patient Refused. 9-Not Applicable-not attempted and the patient did not perform the activity before the current illness, exacerbation or injury. 10-Not Attempted due to Environmental Limitations-(lack of equipment, weather restraints, etc.). 88-Not Attempted due to Medical Conditions or Safety Concerns. Roll Left to Right (QC): 4 Sit to Lying (QC): 2 Sit to Stand (QC): 2 Chair/Svy-cy-Zagbp Xfer(QC): 3 Car Transfer (QC): 1 Gait Training Walk 10 feet (QC): 88 Walk 50 ft with 2 Turns(QC): 88 Walk 150 ft (QC): 88 Walking 10ft/uneven surface-QC: 88 Wheelchair Training Does the Pt Use a Wheelchair?: Yes Distance: 50'x2 Wheel 50 ft with 2 turns (QC): 4 Wheel 150 ft (QC): 4 Type of Wheelchair: Manual Stair Training 1 Step (curb) (QC): 88 4 Steps (QC): 88 12 Steps (QC): 88 Balance Picking up an Object (QC): 88 ADL-Treatment Eating (QC): 6 (Pt reports independent with lunch.) Oral Hygiene (QC): 5 (set up at tray table.) Shower/Bathe Self (QC): 2 (Pt able to wash BUEs, chest and abdomen. Required assistance with washing BLEs, periarea, buttocks.) Upper Body Dressing (QC): 3 (Pt able to thread BUEs into shirt and overhead. Required min A with pulling shirt down over abdomen.) Lower Body Dressing (QC): 1 (Assist to doff pants, mod A rolling side to side.) On/Off Footwear (QC): 3 (Pt able to don slip on shoes seated EOB, min A with back of shoes.) Toileting Hygiene (QC): 1 (Assist to manage clothing and hygiene after bed avery) Assessment/Plan Assessment and Plan Assess & Plan/Chief Complaint Assessment: Critical illness debility from COVID-19 dx 12/11/19 OA h/o breast cancer Allergic rhinitis HTN GERD Depression Lung nodules [facility] 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 since senior care stable Grave's disease Plan: IRF protocol Wean O2 Pain meds BM regimen 01/29/20: Restart Tapazole 5mg daily Knee injection by ortho will be pursued tomorrow O2 01/30/20: Right knee injection will be requested from Dr Dent Pain meds Tapazole O2 01/31/20: Knee injection not performed due to COVID related risk Monitor O2 Midline and Venofer 02/01/20: Monitor closely O2 wean IRF protocol 02/01/30: Monitor O2 Aggressive therapy (1) Myopathy (2) COVID-19 (3) GERD (gastroesophageal reflux disease) (4) Hypoxia (5) HX: breast cancer (6) Anxiety (7) Depression JARRELL HURD DO Feb 02, 2020 08:56
--- NOTE | 2020-02-02 10:25 | Physical Therapy Daily Note ---
PT Daily Note-Current Subjective Pt laying Supine in bed upon arrival. Pt agrees to PT/OT co-treat. Need for 2 skilled clinicians that a Product Managent Intern could not provide due to decreased balance, weakness, activity tolerance and need for assistance with transfers. Pain Numeric Pain Scale: 5-Moderate Pain Location: Right Location Body Site: Knee Pain Description: Ache, Tightness Comment: Pt reports pain in mid back & R knee. Mental Status Patient Orientation: Person, Place, Situation Attachments: Oxygen (2L) Transfers SCALE: Activities may be completed with or without assistive devices. 1-Ybkmikzdev-zoulmwu completes the activity by him/herself with no assistance from a helper. 5-Set-up or Clean-up Assistance-helper sets up or cleans up; patient completes activity. [place] assists only prior to or following the activity. 4-Supervision or Touching Assistance-helper provides verbal cues and/or touching/steadying and/or contact guard assistance as patient completes activity. Assistance may be provided throughout the activity or intermittently. 3-Partial/Moderate Assistance-helper does LESS THAN HALF the effort. [place] lifts, holds or supports trunk or limbs, but provides less than half the effort. 2-Substantial/Maximal Assistance-helper does MORE THAN HALF the effort. [place] lifts or holds trunk or limbs and provides more than half the effort. 2-Hsufvweay-kuydoc does ALL the effort. Patient does none of the effort to complete the activity. Or, the assistance of 2 or more helpers is required for the patient to complete the activity. If activity was not attempted, code reason: 7-Patient Refused. 9-Not Applicable-not attempted and the patient did not perform the activity before the current illness, exacerbation or injury. 10-Not Attempted due to Environmental Limitations-(lack of equipment, weather restraints, etc.). 88-Not Attempted due to Medical Conditions or Safety Concerns. Roll Left & Right (QC): 3 Lying to Sitting/Side of Bed(Q: 3 Sit to Stand (QC): 2 Chair/Xvu-ee-Gwytf Xfer(QC): 3 Weight Bearing Full Weight Bearing Full Weight Bearing Wheelchair Training Does the Pt Use a Wheelchair?: Yes Wheel 50 ft with 2 turns (QC): 4 Wheel 150 ft (QC): 4 Type of Wheelchair: Manual Exercises Supine Ex: Bridging, Rolling Seated Therapy Exercises: Ankle pumps, Long arc quads, Hip flexion, Kicking activity, Hip abd/add Seated Reps: 15 Treatments Pt rolls side to side as pt dons clothing. TF from Supine to EOB then slide board to [facility]. Propels WC in hallway and to Therapy Gym. Pt completes 2 sit to stands with standing ~30 sec. each time. Pt completes Seated Ex before propelling WCH back to room to TF to BSC. All needs met. PT focuses on transfers, gross movements,LE strengthening while OT focuses on UE strengthening, hand placement & ADLs. Assessment Current Status: Fair Progress Pt continues to remain weak but is making progress with slide board transfer and standing at //bars. PT Short Term Goals Short Term Goals Time Frame: Feb 04, 2020 Roll Left & Right: 4 Sit to lyin Lying to sitting on side of be: 3 Sit to stand: 3 Chair/uki-vz-bqqbq transfer: 3 Walk 10 feet: 3 PT Acquisitions Logistics Analyst Goals Correction Goals PT Acquisitions Logistics Analyst Goals Time Frame: Feb 18, 2020 Roll Left & Right (QC): 6 Sit to Lying (QC): 4 Lying-Sitting on Side/Bed(QC): 4 Sit to Stand (QC): 3 (Shelby) Chair/Clp-hf-Kmpyq Xfer(QC): 3 (Shelby) Toilet Transfer (QC): 3 (Shelby) Car Transfer (QC): 3 (Shelby) Does the Patient Walk: No and Walking Goal IS indicated Walk 10 feet (QC): 3 Walk 50ft with 2 Turns (QC): 3 Walk 150 ft (QC): 88 Walking 10ft on Uneven Surface: 88 1 Step (curb) (QC): 88 4 Steps (QC): 88 12 Steps (QC): 88 Picking up an Object (QC): 88 Wheel 50 feet with 2 turns (QC: 6 Wheel 150 feet: 6 PT Plan Problem List Problem List: Activity Tolerance, Functional Strength, Safety, Balance, Gait, Transfer Treatment/Plan Treatment Plan: Continue Plan of Care Treatment Plan: Bed Mobility, Education, Functional Activity Renny, Functional Strength, Group Therapy, Gait, Safety, Therapeutic Exercise, Transfers Treatment Duration: Feb 18, 2020 Frequency: At least 5 of 7 days/Wk (IRF) Estimated Hrs Per Day: 1.5 hours per day Patient and/or Family Agrees t: Yes Safety Risks/Education Patient Education: Transfer Techniques, Correct Positioning, W/C Management, Safety Issues Teaching Recipient: Patient Teaching Methods: Discussion Response to Teaching: Verbalize Understanding Time/GCodes Time In: 800 Time Out: 915 Total Billed Treatment Time: 75 Total Billed Treatment 1, FA x2 (30m), WCH (20m) & EX x2 (25m) Co-treat w/OT 60m (800-900) SIENNA POND CAVALRY OFFICER Feb 02, 2020 10:25
--- NOTE | 2020-02-02 11:02 | Occupational Ther Daily Note ---
OT Current Status-Daily Note Subjective Pt laying in bed, agreeable to OT/PT cotreat. Pt indicates back pain and knee pain during tx. Mental Status/Objective Patient Orientation: Person, Place, Time, Situation Attachments: Oxygen ADL-Treatment Therapy Code Descriptions/Definitions Functional [place] Measure: 0=Not Assessed/NA 4=Minimal Assistance 1=Total Assistance 5=Supervision or Setup 2=Maximal Assistance 6=Modified Gregg 3=Moderate Assistance 7=Complete IndependenceSCALE: Activities may be completed with or without assistive devices. 7-Ldailjcqkv-vczuxqa completes the activity by him/herself with no assistance from a helper. 5-Set-up or Clean-up Assistance-helper sets up or cleans up; patient completes activity. [place] assists only prior to or following the activity. 4-Supervision or Touching Assistance-helper provides verbal cues and/or touching/steadying and/or contact guard assistance as patient completes activit y. Assistance may be provided throughout the activity or intermittently. 3-Partial/Moderate Assistance-helper does LESS THAN HALF the effort. [place] lifts, holds or supports trunk or limbs, but provides less than half the effort. 2-Substantial/Maximal Assistance-helper does MORE THAN HALF the effort. [place] lifts or holds trunk or limbs and provides more than half the effort. 7-Iqqolzfhm-rdduny does ALL the effort. Patient does none of the effort to complete the activity. Or, the assistance of 2 or more helpers is required for the patient to complete the activity. If activity was not attempted, code reason: 7-Patient Refused. 9-Not Applicable-not attempted and the patient did not perform the activity before the current illness, exacerbation or injury. 10-Not Attempted due to Environmental Limitations-(lack of equipment, weather restraints, etc.). 88-Not Attempted due to Medical Conditions or Safety Concerns. Upper Body Dressing (QC): 3 (Pt able to thread UEs and head, Min A with managing down over abdomen) Lower Body Dressing (QC): 1 (total assist donning pants/brief at bed level.) Other Treatment OT/PT cotreat due to skill of 2 clinicians required which a vocational rehabilitation consultant could not perform in order to coordinate UE/LE with tasks, and due to pt's limitations in functional strength, endurance, mobility. OT focused on ADLs, UE placement, cues for sequencing and safety and assistance with transfers while PT focused on LE placement, gross overall movements, and transfers. Pt donned shirt and pants at bed level, then transferred EOB in order to take medicine provided by nurse. Pt performed SB transfer from bed to w/c, assistance to place and remove slide board. In order to increase BUE strength and endurance, and functional mobility, pt self-propelled w/c to the therapy gym, rest breaks as needed. Pt required verbal cues and assistance with turns. Pt stood x2 at grab bars, ~30 seconds each trial, max A sit to stand. Pt able to clear buttocks but unable to straighten into full stand. Post OT tx, pt in therapy gym with PT to continue tx, all needs met. Education OT Patient Education: Correct positioning, Energy conservation, Modified ADL techniques, Progress toward Goal/Update tx plan, Purpose of tx/functional activities, Rehab process, Transfer techniques, W/C management Teaching Recipient: Patient Teaching Methods: Discussion Response to Teaching: Verbalize Understanding OT Short Term Goals Short Term Goals Time Frame: Feb 09, 2020 Toileting hygiene: 3 Lower body dressin Putting on/taking off footwear: 3 OT Apprentice Goals Nursing Home Goals Time Frame: Feb 18, 2020 Eating (QC): 6 Oral Hygiene (QC): 6 Toileting Hygiene (QC): 6 Shower/Bathe Self (QC): 6 Upper Body Dressing (QC): 6 Lower Body Dressing (QC): 6 On/Off Footwear (QC): 6 Additional Goals: 1-Demonstrate ADL Tasks, 2-Verbalize Understanding, 3- ImproveStrength/Renny 1=Demonstrate adherence to instructed precautions during ADL tasks. 2=Patient will verbalize/demonstrate understanding of assistive devices/modifications for ADL. 3=Patient will improve strength/tolerance for activity to enable patient to perform ADL's. OT Education/Plan Problem List/Assessment Assessment: Decreased Activ Tolerance, Decreased UE Strength, Impaired Funct Balance, Impaired I ADL's, Impaired Self-Care Skills Discharge Recommendations Plan/Recommendations: Continue POC Treatment Plan/Plan of Care Patient would benefit from OT for education, treatment and training to promote independence in ADL's, mobility, safety and/or upper extremity function for ADL's. Plan of Care: ADL Retraining, Functional Mobility, Group Exercise/Act as Ind, UE Funct Exercise/Act Treatment Duration: Feb 18, 2020 Frequency: At least 5 of 7 days/Wk (IRF) Estimated Hrs Per Day: 1.5 hours per day Agreement: Yes Rehab Potential: Fair Time/GCodes Start Time: 08:00 Stop Time: 09:00 Total Time Billed (hr/min): 60 Billed Treatment Time cotreat x60' 1, ADL (15'), FA 3 (45') ISIDRO MACIEL OT Feb 02, 2020 11:02
--- NOTE | 2020-02-02 13:23 | Occupational Ther Daily Note ---
OT Current Status-Daily Note Subjective Pt laying in bed, agreeable to OT tx. Pt indicates she needs to go to the bathroom, requests bed avery. Mental Status/Objective Patient Orientation: Person, Place, Time, Situation Attachments: Oxygen ADL-Treatment Therapy Code Descriptions/Definitions Functional [place] Measure: 0=Not Assessed/NA 4=Minimal Assistance 1=Total Assistance 5=Supervision or Setup 2=Maximal Assistance 6=Modified [place] 3=Moderate Assistance 7=Complete IndependenceSCALE: Activities may be completed with or without assistive devices. 7-Rdmhdodvfe-rujmpan completes the activity by him/herself with no assistance from a helper. 5-Set-up or Clean-up Assistance-helper sets up or cleans up; patient completes activity. [place] assists only prior to or following the activity. 4-Supervision or Touching Assistance-helper provides verbal cues and/or touching/steadying and/or contact guard assistance as patient completes activity. Assistance may be provided throughout the activity or intermittently. 3-Partial/Moderate Assistance-helper does LESS THAN HALF the effort. [place] lifts, holds or supports trunk or limbs, but provides less than half the effort. 2-Substantial/Maximal Assistance-helper does MORE THAN HALF the effort. [place] lifts or holds trunk or limbs and provides more than half the effort. 9-Kbbbylbtu-vhrlvr does ALL the effort. Patient does none of the effort to complete the activity. Or, the assistance of 2 or more helpers is required for the patient to complete the activity. If activity was not attempted, code reason: 7-Patient Refused. 9-Not Applicable-not attempted and the patient did not perform the activity before the current illness, exacerbation or injury. 10-Not Attempted due to Environmental Limitations-(lack of equipment, weather restraints, etc.). 88-Not Attempted due to Medical Conditions or Safety Concerns. Oral Hygiene (QC): 5 Toileting Hygiene (QC): 2 (Max A clothing management and hygiene.) Other Treatment Pt in bed, HOB elevated. Pt brushed her teeth with set up assistance at bed level. OT then placed shower cap on pt's head, she was able to scrub her hair in order to wash. Pt then requests bed avery, pt rolled side to side with mod A, max A to manage pants down. Bed avery placed under pt, then OT assisted pt with hygiene, and managing clothing up. Pt removed shower cap and combed her hair with set up assistance. Post OT tx, pt laying in bed, call light in reach and all needs met. Education OT Patient Education: Correct positioning, Modified ADL techniques, Progress toward Goal/Update tx plan, Purpose of tx/functional activities, Rehab process Teaching Recipient: Patient Teaching Methods: Discussion Response to Teaching: Verbalize Understanding OT Short Term Goals Short Term Goals Time Frame: Feb 09, 2020 Toileting hygiene: 3 Lower body dressin Putting on/taking off footwear: 3 OT Delivery Driver/Supervisor Goals Delivery Driver/Supervisor Goals Time Frame: Feb 18, 2020 Eating (QC): 6 Oral Hygiene (QC): 6 Toileting Hygiene (QC): 6 Shower/Bathe Self (QC): 6 Upper Body Dressing (QC): 6 Lower Body Dressing (QC): 6 On/Off Footwear (QC): 6 Additional Goals: 1-Demonstrate ADL Tasks, 2-Verbalize Understanding, 3- ImproveStrength/Renny 1=Demonstrate adherence to instructed precautions during ADL tasks. 2=Patient will verbalize/demonstrate understanding of assistive devices/modifications for ADL. 3=Patient will improve strength/tolerance for activity to enable patient to perform ADL's. OT Education/Plan Problem List/Assessment Assessment: Decreased Activ Tolerance, Decreased UE Strength, Impaired Funct Balance, Impaired I ADL's, Impaired Self-Care Skills Discharge Recommendations Plan/Recommendations: Continue POC Treatment Plan/Plan of Care Patient would benefit from OT for education, treatment and training to promote independence in ADL's, mobility, safety and/or upper extremity function for ADL's. Plan of Care: ADL Retraining, Functional Mobility, Group Exercise/Act as Ind, UE Funct Exercise/Act Treatment Duration: Feb 18, 2020 Frequency: At least 5 of 7 days/Wk (IRF) Estimated Hrs Per Day: 1.5 hours per day Agreement: Yes Rehab Potential: Fair Time/GCodes Start Time: 13:10 Stop Time: 13:40 Total Time Billed (hr/min): 30 Billed Treatment Time 1, ADL 2 ISIDRO MACIEL OT Feb 02, 2020 13:23
--- NOTE | 2020-02-02 13:58 | Physical Therapy Daily Note ---
PT Daily Note-Current Subjective Pt sitting up in bed upon arrival. Pt agrees to PT. Pt also reports discomfort with position she is in. Pain Numeric Pain Scale: 5-Moderate Pain Location Body Site: Back Pain Description: Ache Mental Status Patient Orientation: Person, Place, Situation Attachments: Oxygen (2L) Transfers SCALE: Activities may be completed with or without assistive devices. 6-Rodelthgox-spgysew completes the activity by him/herself with no assistance from a helper. 5-Set-up or Clean-up Assistance-helper sets up or cleans up; patient completes activity. [place] assists only prior to or following the activity. 4-Supervision or Touching Assistance-helper provides verbal cues and/or touching/steadying and/or contact guard assistance as patient completes activity. Assistance may be provided throughout the activity or intermittently. 3-Partial/Moderate Assistance-helper does LESS THAN HALF the effort. [place] lifts, holds or supports trunk or limbs, but provides less than half the effort. 2-Substantial/Maximal Assistance-helper does MORE THAN HALF the effort. [place] lifts or holds trunk or limbs and provides more than half the effort. 8-Qbbyqsuxt-ekbfrj does ALL the effort. Patient does none of the effort to complete the activity. Or, the assistance of 2 or more helpers is required for the patient to complete the activity. If activity was not attempted, code reason: 7-Patient Refused. 9-Not Applicable-not attempted and the patient did not perform the activity before the current illness, exacerbation or injury. 10-Not Attempted due to Environmental Limitations-(lack of equipment, weather restraints, etc.). 88-Not Attempted due to Medical Conditions or Safety Concerns. Weight Bearing Full Weight Bearing Full Weight Bearing Treatments CLINICAL RESEARCH COORDINATOR reviews pressure sores and how to avoid them. CLINICAL RESEARCH COORDINATOR assists with repositioning pt to comfort and providing side table as lunch is due to arrive shortly. Pt had declined need to use BR or BSC. All needs met, call light in hand. Assessment Current Status: Fair Progress Pt needs assistance to position due to weakness. PT Short Term Goals Short Term Goals Time Frame: Feb 04, 2020 Roll Left & Right: 4 Sit to lyin Lying to sitting on side of be: 3 Sit to stand: 3 Chair/ftp-zw-jlewb transfer: 3 Walk 10 feet: 3 PT Residential Goals Residential Goals PT Outdoor Studies Director Goals Time Frame: Feb 18, 2020 Roll Left & Right (QC): 6 Sit to Lying (QC): 4 Lying-Sitting on Side/Bed(QC): 4 Sit to Stand (QC): 3 ([place]) Chair/Pnu-lh-Nwirt Xfer(QC): 3 ([place]) Toilet Transfer (QC): 3 ([place]) Car Transfer (QC): 3 ([place]) Does the Patient Walk: No and Walking Goal IS indicated Walk 10 feet (QC): 3 Walk 50ft with 2 Turns (QC): 3 Walk 150 ft (QC): 88 Walking 10ft on Uneven Surface: 88 1 Step (curb) (QC): 88 4 Steps (QC): 88 12 Steps (QC): 88 Picking up an Object (QC): 88 Wheel 50 feet with 2 turns (QC: 6 Wheel 150 feet: 6 PT Plan Problem List Problem List: Activity Tolerance, Functional Strength, Transfer Treatment/Plan Treatment Plan: Continue Plan of Care Treatment Plan: Bed Mobility, Education, Functional Activity Renny, Functional Strength, Group Therapy, Gait, Safety, Therapeutic Exercise, Transfers Treatment Duration: Feb 18, 2020 Frequency: At least 5 of 7 days/Wk (IRF) Estimated Hrs Per Day: 1.5 hours per day Patient and/or Family Agrees t: Yes Safety Risks/Education Patient Education: Transfer Techniques, Correct Positioning, Safety Issues Teaching Recipient: Patient Teaching Methods: Discussion Response to Teaching: Verbalize Understanding Time/GCodes Time In: 1135 Time Out: 1155 Total Billed Treatment Time: 20 Total Billed Treatment 1, FA (20m) SIENNA POND CLINICAL RESEARCH COORDINATOR Feb 02, 2020 13:58
[2020-02-02] MEDS: IRON SUCROSE 200 MG/10 ML (VENOFER) VIAL IV SCH ×2 (14:00→17:44)
[2020-02-02] MEDS ORDERED: ASCO500C17 PO (14:57)
[2020-02-02] MEDS ORDERED: COLE1TAB PO (14:57)
[2020-02-02] MEDS ORDERED: GABA600T PO (14:57)
[2020-02-02] MEDS ORDERED: EST30C TP (14:57)
[2020-02-02] MEDS ORDERED: SERT100T8 PO (14:57)
[2020-02-02] MEDS ORDERED: OLME40TA18 PO (14:57)
[2020-02-02] MEDS ORDERED: MELO15TA39 PO (14:57)
[2020-02-02] MEDS ORDERED: ALPR0.254 PO (14:57)
[2020-02-02] MEDS ORDERED: OXYC-471 PO (14:57)
[2020-02-02] MEDS ORDERED: ESOM40CA52 PO (14:57)
[2020-02-02] MEDS ORDERED: PRAM0.257 PO (14:57)
[2020-02-02] MEDS ORDERED: ACET-2650 PO (14:59)
[2020-02-02] MEDS ORDERED: METH5TAB5 PO (14:59)
--- NOTE | 2020-02-02 15:03 | NUR ---
I SPOKE WITH THE PATIENT, WENT THROUGH THE EXTERNAL MED HISTORY AND CALLED [facility] TO CPMPLETE THIS MED REC. MEDICATIONS THAT HAVE BEEN REMOVED DUE TO PT NOT TAKING THEM PRIOR TO [place]: ACETAMINOPHEN SUPP VITAMIN B12 FOLIC ACID HYDROCORTISONE SUPP OXYCODONE PROTONIX ARTIFICIAL TEARS SILDENAFIL MEDICATIONS THAT HAVE BEEN ADDED: XANAX PRAMIPEXOLE MELOXICAM OXYCODONE/APAP PREMARIN CREAM NEXIUM OLMESARTAN COLESTIPOL VITAMIN C METHIMAZOLE TYLENOL MEDICATIONS THAT HAVE BEEN CHANGED: PT TAKES GABAPENTIN 600MG DAILY INSTEAD OF 2 300MG PT TAKES SERTRALINE 100MG DAILY INSTEAD OF 50MG HS FILL DATES FROM [facility]: MELOXICAM 10/06/19 #90/90DS METHIMAZOLE 11/13/19 #90/90DS
[2020-02-02 18:00] VITALS: BP 149/68
[2020-02-02] MEDS ORDERED: PATIENT MAY USE OWN MED,SINGLE MED PO SCH (18:30)
[2020-02-02] MEDS: ALPRAZolam 0.25 MG (XANAX) TAB PO PRN (18:50)
[2020-02-02] MEDS: ACETAMINOPHEN 650 MG PO SCH (18:51)
[2020-02-02] MEDS ORDERED: ACETAMINOPHEN 325 MG TABLET PO SCH (21:00)
[2020-02-02] MEDS: MELATONIN 3 MG TABLET PO PRN (21:15)
[2020-02-02] MEDS: SERTRALINE 50 MG (ZOLOFT) TABLET PO SCH (21:15)
[2020-02-03 05:41] VITALS: BP 144/59
--- NOTE | 2020-02-03 05:59 | PM&R Progress Note ---
Subjective HPI/CC On Admission Date Seen by Provider: Feb 03, 2020 Time Seen by Provider: 10:30 Subjective/Events-last exam 02/03/20: Oxycodone and Xanax ordered APAP Skateboard Standing with assist Memory loss noted Less edema right knee BM 02/02: Pt doing pretty well Participating in therapy Very motivated to improve Maintained on O2 2 liters 02/01/20: Right knee pain continues but considering the risk for complications from steroid injection after Covid, she will be managing Overall doing pretty well on 2 L of Oxygen Will replace Picc line since it was placed in the arm where she has had her previous mastectomy 01/31/20: Dr. Dent graciously agreed to see her for right knee pain and will initiate an injection Hgb 9.1 so midline will be placed with iron infusions 2 L of oxygen maintained After rounds Dr Dent updated me on the fact that no injection initiated due to high risk following COVID 01/30/20: Right knee pain continues Will reach out to Dr Dent tomorrow Tapazole restarted Midline needed for iron infusions Severe right knee pain 11/26 today so adjusted her pain meds and xray noted severe OA Dr Scott usually gives her a right knee injections every 3 months and she is overdue I will try to have ortho give pain injection Friday Tapazole not on her list and she has Graves disease she states O2 at 80% so will maintain 2L/min O2 Checking iron level since hgb 9.1 Adding TSH FT4 to labs BM today loose Review of Systems General: Fatigue, Malaise Pulmonary: Dyspnea Musculoskeletal: leg pain Objective Exam Vital Signs Vital Signs Date Time Temp Pulse Resp B/P (MAP) Pulse Ox O2 Delivery O2 Flow Rate FiO2 02/03/20 23:00 Nasal Cannula 2.00 02/03/20 20:05 96 02/03/20 17:28 36.8 86 20 133/64 (87) Capillary Refill : Less Than 3 Seconds General Appearance: No Apparent Distress, WD/WN, Chronically ill HEENT: PERRL/EOMI, Normal ENT Inspection, Pharynx Normal Neck: Full Range of Motion, Normal Inspection, Non Tender, Supple, Carotid B ruit Respiratory: Chest Non Tender, Lungs Clear, No Accessory Muscle Use, No Respiratory Distress, Decreased Breath Sounds Cardiovascular: Regular Rate, Rhythm, No Edema, No Gallop, No JVD, No Murmur, Normal Peripheral Pulses Gastrointestinal: Normal Bowel Sounds, No Organomegaly, No Pulsatile Mass, Non Tender, Soft Back: Normal Inspection, No CVA Tenderness, No Vertebral Tenderness Extremity: Normal Capillary Refill, Normal Inspection, Normal Range of Motion, Non Tender, No Calf Tenderness, No Pedal Edema Neurologic/Psychiatric: Alert, Oriented x3, Normal Mood/Affect, event marketing representative II-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 FIM Transfers Therapy Code Descriptions/Definitions Functional [place] Measure: 0=Not Assessed/NA 4=Minimal Assistance 1=Total Assistance 5=Supervision or Setup 2=Maximal Assistance 6=Modified [place] 3=Moderate Assistance 7=Complete IndependenceSCALE: Activities may be completed with or without assistive devices. 0-Elcbootnfv-rmtwkxa completes the activity by him/herself with no assistance from a helper. 5-Set-up or Clean-up Assistance-helper sets up or cleans up; patient completes activity. [place] assists only prior to or following the activity. 4-Supervision or Touching Assistance-helper provides verbal cues and/or touching/steadying and/or contact guard assistance as patient completes activity. Assistance may be provided throughout the activity or intermittently. 3-Partial/Moderate Assistance-helper does LESS THAN HALF the effort. [place] lifts, holds or supports trunk or limbs, but provides less than half the effort. 2-Substantial/Maximal Assistance-helper does MORE THAN HALF the effort. [place] lifts or holds trunk or limbs and provides more than half the effort. 9-Vrivcmlic-ffzeld does ALL the effort. Patient does none of the effort to complete the activity. Or, the assistance of 2 or more helpers is required for the patient to complete the activity. If activity was not attempted, code reason: 7-Patient Refused. 9-Not Applicable-not attempted and the patient did not perform the activity before the current illness, exacerbation or injury. 10-Not Attempted due to Environmental Limitations-(lack of equipment, weather restraints, etc.). 88-Not Attempted due to Medical Conditions or Safety Concerns. Roll Left to Right (QC): 3 Sit to Lying (QC): 2 Sit to Stand (QC): 2 Chair/Jkn-ne-Sxwww Xfer(QC): 3 Car Transfer (QC): 1 Gait Training Walk 10 feet (QC): 88 Walk 50 ft with 2 Turns(QC): 88 Walk 150 ft (QC): 88 Walking 10ft/uneven surface-QC: 88 Wheelchair Training Does the Pt Use a Wheelchair?: Yes Distance: 50'x2 Wheel 50 ft with 2 turns (QC): 4 Wheel 150 ft (QC): 4 Type of Wheelchair: Manual Stair Training 1 Step (curb) (QC): 88 4 Steps (QC): 88 12 Steps (QC): 88 Balance Picking up an Object (QC): 88 ADL-Treatment Eating (QC): 6 (Pt reports independent with lunch.) Oral Hygiene (QC): 5 Shower/Bathe Self (QC): 2 (Pt able to wash BUEs, chest and abdomen. Required assistance with washing BLEs, periarea, buttocks.) Upper Body Dressing (QC): 3 (Pt able to thread UEs and head, Min A with williams ging down over abdomen) Lower Body Dressing (QC): 1 (total assist donning pants/brief at bed level.) On/Off Footwear (QC): 3 (Pt able to don slip on shoes seated EOB, min A with back of shoes.) Toileting Hygiene (QC): 2 (Max A clothing management and hygiene.) Assessment/Plan Assessment and Plan Assess & Plan/Chief Complaint Assessment: Critical illness debility from COVID-19 dx 12/11/19 OA h/o breast cancer Allergic rhinitis HTN GERD Depression Lung nodules [facility] 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 since 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 Grave's disease Plan: IRF protocol Wean O2 Pain meds BM regimen 01/29/20: Restart Tapazole 5mg daily Knee injection by ortho will be pursued tomorrow O2 01/30/20: Right knee injection will be requested from Dr Dent Pain meds Tapazole O2 01/31/20: Knee injection not performed due to COVID related risk Monitor O2 Midline and Venofer 02/01/20: Monitor closely O2 wean IRF protocol 02/01/30: Monitor O2 Aggressive therapy 02/03/20: Stood with assist and parallel bars today Improved status IV Venofer after PICC changed (1) Myopathy (2) COVID-19 (3) GERD (gastroesophageal reflux disease) (4) Hypoxia (5) HX: breast cancer (6) Anxiety (7) Depression JARRELL HURD DO Feb 03, 2020 05:59
[2020-02-03] MEDS: NIFEdipine ER 30 MG (PROCARDIA XL) TAB PO SCH (08:47)
[2020-02-03] MEDS: METHIMAZOLE 5 MG PO SCH (08:47)
[2020-02-03] MEDS: LACTOBACILLUS ACIDOPHILUS (PROBIOTIC) CAPSULE PO SCH ×2 (08:48→22:24)
[2020-02-03] MEDS: VITAMIN D3 125 MCG (5,000 UNITS) CAPSULE PO SCH (08:48)
[2020-02-03] MEDS: CYANOCOBALAMIN 1,000 MCG (VITAMIN B-12) TABLET PO SCH (08:48)
[2020-02-03] MEDS: PANTOPRAZOLE 40 MG (PROTONIX) TAB PO SCH ×2 (08:48→22:26)
[2020-02-03] MEDS: LIDOCAINE 4% (SALONPAS) PATCH TP SCH ×2 (08:48→22:27)
[2020-02-03] MEDS: GABAPENTIN 300 MG (NEURONTIN) CAP PO SCH ×3 (08:49→22:25)
[2020-02-03] MEDS: polyethylene glycoL POWDER 17 GM (MIRALAX) PACK PO SCH ×2 (08:49→22:20)
[2020-02-03] MEDS: ENOXAPARIN 40 MG/0.4 ML (LOVENOX) SYR SC SCH (08:50)
[2020-02-03] MEDS: SENNA W/DOCUSATE (SENOKOT S) TABLET PO SCH ×2 (08:54→22:24)
[2020-02-03] MEDS: DICLOFENAC 1% GEL 100 GM (VOLTAREN) TUBE TOP SCH ×4 (08:55→22:27)
[2020-02-03] MEDS: ACETAMINOPHEN 650 MG PO SCH ×3 (08:56→22:29)
[2020-02-03] MEDS: MICONAZOLE 2% POWDER (DESENEX AF) 90 GM TOP SCH ×2 (08:58→22:27)
[2020-02-03] MEDS: SILDENAFIL 20 MG (REVATIO) TAB NON-FORMULARY PO SCH ×2 (09:06→22:22)
[2020-02-03] MEDS: DOCUSATE SODIUM 100 MG (COLACE) CAP PO SCH ×2 (09:20→22:27)
--- NOTE | 2020-02-03 11:09 | Occupational Ther Daily Note ---
OT Current Status-Daily Note Subjective Pt laying in bed, agreeable to OT tx. Pt indicates pain in R arm due to problems with midline, nursing aware. Mental Status/Objective Patient Orientation: Person, Place, Time, Situation Attachments: Oxygen ADL-Treatment Therapy Code Descriptions/Definitions Functional [place] Measure: 0=Not Assessed/NA 4=Minimal Assistance 1=Total Assistance 5=Supervision or Setup 2=Maximal Assistance 6=Modified [place] 3=Moderate Assistance 7=Complete IndependenceSCALE: Activities may be completed with or without assistive devices. 2-Dvohaggqea-hzflyxa completes the activity by him/herself with no assistance from a helper. 5-Set-up or Clean-up Assistance-helper sets up or cleans up; patient completes activity. [place] assists only prior to or following the activity. 4-Supervision or Touching Assistance-helper provides verbal cues and/or touching/steadying and/or contact guard assistance as patient completes activity. Assistance may be provided throughout the activity or intermittently. 3-Partial/Moderate Assistance-helper does LESS THAN HALF the effort. [place] lifts, holds or supports trunk or limbs, but provides less than half the effort. 2-Substantial/Maximal Assistance-helper does MORE THAN HALF the effort. [place] lifts or holds trunk or limbs and provides more than half the effort. 5-Kuifdvrra-njixua does ALL the effort. Patient does none of the effort to complete the activity. Or, the assistance of 2 or more helpers is required for the patient to complete the activity. If activity was not attempted, code reason: 7-Patient Refused. 9-Not Applicable-not attempted and the patient did not perform the activity before the current illness, exacerbation or injury. 10-Not Attempted due to Environmental Limitations-(lack of equipment, weather restraints, etc.). 88-Not Attempted due to Medical Conditions or Safety Concerns. Lower Body Dressing (QC): 2 (Max A at bed level) On/Off Footwear: 4 (SBA seated EOB, pt able to don slip on shoes.) Toileting Hygiene (QC): 1 Other Treatment [id number] OT tx. Pt laying in bed, agreeable to attempting to use bed avery prior to getting up. Pt rolled side to side with mod A in order for bed avery placement/removal, hygiene and with donning pants. Pt then transferred to sit EOB, max A with trunk. Pt seated EOB and able to take medicine independently provided by nurse. [id number] OT/PT cotreat: OT/PT cotreat due to skill of 2 clinicians required which a director of pediatric rehabilitation could not perform in order to coordinate UE/LE with tasks, and due to pt's limitations in functional strength, endurance, mobility. OT focused on ADLs, UE placement, cues for sequencing and safety and assistance with transfers while PT focused on LE placement, gross overall movements, and transfers. Pt completed slide board transfer from EOB to w/c, assistance with placing and removing SB. Pt then self-propelled w/c to therapy gym, cues for hand placement in order to maneuver turning w/c. Pt took rest breaks as needed. Pt stood in parallel bars, max verbal cues for sequencing of task and hand placement. Pt able to get buttocks off of chair and almost to a full stand. Pt stood x3 trials ~30 seconds each. Pt self-propelled back to room, SPT to recliner. Post tx, pt seated in recliner, call light in reach and all needs met. Education OT Patient Education: Correct positioning, Modified ADL techniques, Progress toward Goal/Update tx plan, Purpose of tx/functional activities Teaching Recipient: Patient Teaching Methods: Discussion Response to Teaching: Verbalize Understanding OT Short Term Goals Short Term Goals Time Frame: Feb 09, 2020 Toileting hygiene: 3 Lower body dressin Putting on/taking off footwear: 3 OT Tub Mender Goals [facility] Goals Time Frame: Feb 18, 2020 Eating (QC): 6 Oral Hygiene (QC): 6 Toileting Hygiene (QC): 6 Shower/Bathe Self (QC): 6 Upper Body Dressing (QC): 6 Lower Body Dressing (QC): 6 On/Off Footwear (QC): 6 Additional Goals: 1-Demonstrate ADL Tasks, 2-Verbalize Understanding, 3-Improve Strength/Renny 1=Demonstrate adherence to instructed precautions during ADL tasks. 2=Patient will verbalize/demonstrate understanding of assistive devices/modifications for ADL. 3=Patient will improve strength/tolerance for activity to enable patient to pe rform ADL's. OT Education/Plan Problem List/Assessment Assessment: Decreased Activ Tolerance, Decreased UE Strength, Impaired Funct Balance, Impaired I ADL's, Impaired Self-Care Skills Discharge Recommendations Plan/Recommendations: Continue POC Treatment Plan/Plan of Care Patient would benefit from OT for education, treatment and training to promote independence in ADL's, mobility, safety and/or upper extremity function for ADL's. Plan of Care: ADL Retraining, Functional Mobility, Group Exercise/Act as Ind, UE Funct Exercise/Act Treatment Duration: Feb 18, 2020 Frequency: At least 5 of 7 days/Wk (IRF) Estimated Hrs Per Day: 1.5 hours per day Agreement: Yes Rehab Potential: Fair Time/GCodes Start Time: 08:30 Stop Time: 10:00 Total Time Billed (hr/min): 90 Billed Treatment Time 3786-0147 OT tx [id number] OT/PT cotreat 1, ADL 2 (30'), FA 4 (60') ISIDRO MACIEL OT Feb 03, 2020 11:09
--- NOTE | 2020-02-03 11:33 | Physical Therapy Daily Note ---
PT Daily Note-Current Subjective Pt sitting EOB with OT upon arrival. Pt agrees to PT/OT co-treat. Pain Numeric Pain Scale: 5-Moderate Pain Location: Right Location Body Site: Arm Pain Description: Sharp Comment: Pt reports pain where Midline is placed with movement. Mental Status Patient Orientation: Person, Place, Situation Attachments: Oxygen (2L) Pt has moments of confusion. Transfers SCALE: Activities may be completed with or without assistive devices. 4-Ycyyensmzc-ykfiaid completes the activity by him/herself with no assistance from a helper. 5-Set-up or Clean-up Assistance-helper sets up or cleans up; patient completes activity. [place] assists only prior to or following the activity. 4-Supervision or Touching Assistance-helper provides verbal cues and/or touching/steadying and/or contact guard assistance as patient completes activity. Assistance may be provided throughout the activity or intermittently. 3-Partial/Moderate Assistance-helper does LESS THAN HALF the effort. [place] lifts, holds or supports trunk or limbs, but provides less than half the effort. 2-Substantial/Maximal Assistance-helper does MORE THAN HALF the effort. [place] lifts or holds trunk or limbs and provides more than half the effort. 3-Mcmzimsps-airgaw does ALL the effort. Patient does none of the effort to complete the activity. Or, the assistance of 2 or more helpers is required for the patient to complete the activity. If activity was not attempted, code reason: 7-Patient Refused. 9-Not Applicable-not attempted and the patient did not perform the activity before the current illness, exacerbation or injury. 10-Not Attempted due to Environmental Limitations-(lack of equipment, weather restraints, etc.). 88-Not Attempted due to Medical Conditions or Safety Concerns. Sit to Stand (QC): 2 Weight Bearing Full Weight Bearing Full Weight Bearing Wheelchair Training Does the Pt Use a Wheelchair?: Yes Wheel 50 ft with 2 turns (QC): 4 Wheel 150 ft (QC): 4 Type of Wheelchair: Manual Exercises Seated Therapy Exercises: Sit to stand Treatments [id number] OT/PT cotreat: OT/PT cotreat due to skill of 2 clinicians required which a homemaking rehabilitation consultant could not perform in order to coordinate UE/LE with tasks, and due to pt's limitations in functional strength, endurance, mobility. OT focused on ADLs, UE placement, cues for sequencing and safety and assistance with transfers while PT focused on LE placement, gross overall movements, and transfers. Pt completed slide board transfer from EOB to w/c, assistance with placing and removing SB. Pt then self-propelled w/c to therapy gym, cues for hand placement in order to maneuver turning w/c. Pt took rest breaks as needed. Pt stood in parallel bars, max verbal cues for sequencing of task and hand placement. Pt able to get buttocks off of chair and almost to a full stand. Pt stood x3 trials ~30 seconds each. Pt self-propelled back to room, SPT to recliner. Post tx, pt seated in recliner, call light in reach and all needs met. Assessment Current Status: Fair Progress Pt is limited by weakness, pain & anxiety. MANUFACTURING MACHINE OPERATOR encourages pt to try to push through for better intermediate results. PT works with Nurse for pain management through medication/Volteran gel. PT Short Term Goals Short Term Goals Time Frame: Feb 04, 2020 Roll Left & Right: 4 Sit to lyin Lying to sitting on side of be: 3 Sit to stand: 3 Chair/rrh-hk-yvwif transfer: 3 Walk 10 feet: 3 PT Nursing Home Goals Nursing Home Goals PT Nursing Home Goals Time Frame: Feb 18, 2020 Roll Left & Right (QC): 6 Sit to Lying (QC): 4 Lying-Sitting on Side/Bed(QC): 4 Sit to Stand (QC): 3 ([place]by) Chair/Gja-iw-Puwcd Xfer(QC): 3 (Shelby) Toilet Transfer (QC): 3 (Shelby) Car Transfer (QC): 3 (Shelby) Does the Patient Walk: No and Walking Goal IS indicated Walk 10 feet (QC): 3 Walk 50ft with 2 Turns (QC): 3 Walk 150 ft (QC): 88 Walking 10ft on Uneven Surface: 88 1 Step (curb) (QC): 88 4 Steps (QC): 88 12 Steps (QC): 88 Picking up an Object (QC): 88 Wheel 50 feet with 2 turns (QC: 6 Wheel 150 feet: 6 PT Plan Problem List Problem List: Activity Tolerance, Functional Strength, Balance, Transfer Treatment/Plan Treatment Plan: Continue Plan of Care Treatment Plan: Bed Mobility, Education, Functional Activity Renny, Functional Strength, Group Therapy, Gait, Safety, Therapeutic Exercise, Transfers Treatment Duration: Feb 18, 2020 Frequency: At least 5 of 7 days/Wk (IRF) Estimated Hrs Per Day: 1.5 hours per day Patient and/or Family Agrees t: Yes Safety Risks/Education Patient Education: Transfer Techniques, Correct Positioning, W/C Management, Safety Issues Teaching Recipient: Patient Teaching Methods: Discussion Response to Teaching: Reinforcement Needed Time/GCodes Time In: 900 Time Out: 1000 Total Billed Treatment Time: 60 Total Billed Treatment 1, WCH (20m), EX x2 (25m)FA (15m) Co-treat w/OT 900-1000 (60m) SIENNA POND MANUFACTURING MACHINE OPERATOR Feb 03, 2020 11:33
[2020-02-03] MEDS: IRON SUCROSE 200 MG/10 ML (VENOFER) VIAL IV SCH (13:42)
--- NOTE | 2020-02-03 14:57 | Physical Therapy Daily Note ---
PT Daily Note-Current Subjective Pt laying Supine in bed upon arrival. Pt had just had Midline placed and reports discomfort. Nurse observes Midline and advises pt can participate in Therapy. Pt agrees to PT but is very protective of R UE. Pain Numeric Pain Scale: 10-Worst Possible Pain Location: Right Location Body Site: Arm Pain Description: Sharp Mental Status Patient Orientation: Person, Place, Situation Attachments: Oxygen (2L) Transfers SCALE: Activities may be completed with or without assistive devices. 7-Qwcssuonye-mbsroik completes the activity by him/herself with no assistance from a helper. 5-Set-up or Clean-up Assistance-helper sets up or cleans up; patient completes activity. [place] assists only prior to or following the activity. 4-Supervision or Touching Assistance-helper provides verbal cues and/or touching/steadying and/or contact guard assistance as patient completes activity. Assistance may be provided throughout the activity or intermittently. 3-Partial/Moderate Assistance-helper does LESS THAN HALF the effort. [place] lifts, holds or supports trunk or limbs, but provides less than half the effort. 2-Substantial/Maximal Assistance-helper does MORE THAN HALF the effort. [place] lifts or holds trunk or limbs and provides more than half the effort. 0-Avhvwgtby-nmnlii does ALL the effort. Patient does none of the effort to complete the activity. Or, the assistance of 2 or more helpers is required for the patient to complete the activity. If activity was not attempted, code reason: 7-Patient Refused. 9-Not Applicable-not attempted and the patient did not perform the activity before the current illness, exacerbation or injury. 10-Not Attempted due to Environmental Limitations-(lack of equipment, weather restraints, etc.). 88-Not Attempted due to Medical Conditions or Safety Concerns. Weight Bearing Full Weight Bearing Full Weight Bearing Exercises Supine Ex: Ankle pumps, Quad Set, Glut sets, Heel Slides, Straight leg raise, Hip abd/add Supine Reps: 15 Treatments SPORTS ANALYST assists with donning gown since Midline is placed. Nurse gives medications while pt completes Supine Ex. Nurse is giving flushing Iv and giving Iron at end of tx. Pt is repositioned to comfort. Assessment Current Status: Fair Progress Pt lets pain and anxiety control participation in tx. PT Short Term Goals Short Term Goals Time Frame: Feb 04, 2020 Roll Left & Right: 4 Sit to lyin Lying to sitting on side of be: 3 Sit to stand: 3 Chair/vnq-zg-jqdvs transfer: 3 Walk 10 feet: 3 PT Long-Term Goals Long-Term Goals PT Neurology Nurse Goals Time Frame: Feb 18, 2020 Roll Left & Right (QC): 6 Sit to Lying (QC): 4 Lying-Sitting on Side/Bed(QC): 4 Sit to Stand (QC): 3 (Shelby) Chair/Ytn-fu-Pizxu Xfer(QC): 3 (Shelby) Toilet Transfer (QC): 3 (Shelby) Car Transfer (QC): 3 ([place]helby) Does the Patient Walk: No and Walking Goal IS indicated Walk 10 feet (QC): 3 Walk 50ft with 2 Turns (QC): 3 Walk 150 ft (QC): 88 Walking 10ft on Uneven Surface: 88 1 Step (curb) (QC): 88 4 Steps (QC): 88 12 Steps (QC): 88 Picking up an Object (QC): 88 Wheel 50 feet with 2 turns (QC: 6 Wheel 150 feet: 6 PT Plan Problem List Problem List: Activity Tolerance, Functional Strength, Safety, Balance, Transfer, Bed Mobility Treatment/Plan Treatment Plan: Continue Plan of Care Treatment Plan: Bed Mobility, Education, Functional Activity Renny, Functional Strength, Group Therapy, Gait, Safety, Therapeutic Exercise, Transfers Treatment Duration: Feb 18, 2020 Frequency: At least 5 of 7 days/Wk (IRF) Estimated Hrs Per Day: 1.5 hours per day Patient and/or Family Agrees t: Yes Safety Risks/Education Patient Education: Transfer Techniques, Correct Positioning, Safety Issues Teaching Recipient: Patient Teaching Methods: Discussion Response to Teaching: Reinforcement Needed Time/GCodes Time In: 1345 Time Out: 1415 Total Billed Treatment Time: 30 Total Billed Treatment 1, EX (20m) & FA (10m) SIENNA POND SPORTS ANALYST Feb 03, 2020 14:57
--- NOTE | 2020-02-03 17:13 | NUR ---
CM/SS PATIENT CARE CONFERENCE Reviewed Summary with patient, she is in agreement to continued stay on ARU with review next Friday, February 09, 2020. Patient shared entire journey of this illness as she recalls it, very emotional. Positive and thankful for recovery. Mourning the losses she is learning about of friends and acquaintances who have passed from Covid. Patient's immediate family members seem very close and connected. She expressed her great marilu as Serina to their grandchildren. Patient's goal continues to be to return home and this appears the environment where she would best flourish. Assistive devices to be determined by her recovered functioning, safety, and performance. Continue intermittent reviews.
[2020-02-03 17:28] VITALS: BP 133/64
[2020-02-03] MEDS: SERTRALINE 50 MG (ZOLOFT) TABLET PO SCH (22:25)
[2020-02-03] MEDS: MELATONIN 3 MG TABLET PO PRN (22:26)
--- NOTE | 2020-02-04 05:53 | PM&R Progress Note ---
Subjective HPI/CC On Admission Date Seen by Provider: Feb 04, 2020 Time Seen by Provider: 10:30 Subjective/Events-last exam 02/04/20: Using sit to stand very well Heels are red so managing that O2 on/off 02/03/20: Oxycodone and Xanax ordered APAP Skateboard Standing with assist Memory loss noted Less edema right knee BM 02/02: Pt doing pretty well Participating in therapy Very motivated to improve Maintained on O2 2 liters 02/01/20: Right knee pain continues but considering the risk for complications from steroid injection after Covid, she will be managing Overall doing pretty well on 2 L of Oxygen Will replace Picc line since it was placed in the arm where she has had her previous mastectomy 01/31/20: Dr. Dent graciously agreed to see her for right knee pain and will initiate an injection Hgb 9.1 so midline will be placed with iron infusions 2 L of oxygen maintained After rounds Dr Dent updated me on the fact that no injection initiated due to high risk following COVID 01/30/20: Right knee pain continues Will reach out to Dr Dent tomorrow Tapazole restarted Midline needed for iron infusions Severe right knee pain 11/26 today so adjusted her pain meds and xray noted severe OA Dr Scott usually gives her a right knee injections every 3 months and she is overdue I will try to have ortho give pain injection Friday Tapazole not on her list and she has Graves disease she states O2 at 80% so will maintain 2L/min O2 Checking iron level since hgb 9.1 Adding TSH FT4 to labs BM today loose Review of Systems General: Fatigue, Malaise Pulmonary: Dyspnea, Cough Objective Exam Vital Signs Vital Signs Date Time Temp Pulse Resp B/P (MAP) Pulse Ox O2 Delivery O2 Flow Rate FiO2 02/05/20 05:29 36.9 76 19 153/67 (95) 95 Nasal Cannula 1.00 Capillary Refill : Less Than 3 Seconds General Appearance: No Apparent Distress, WD/WN, Chronically ill HEENT: PERRL/EOMI, Normal ENT Inspection, Pharynx Normal Neck: Full Range of Motion, Normal Inspection, Non Tender, Supple, Carotid Bruit Respiratory: Chest Non Tender, Lungs Clear, No Accessory Muscle Use, No Respiratory Distress, Decreased Breath Sounds Cardiovascular: Regular Rate, Rhythm, No Edema, No Gallop, No JVD, No Murmur, Normal Peripheral Pulses Gastrointestinal: Normal Bowel Sounds, No Organomegaly, No Pulsatile Mass, Non Tender, Soft Back: Normal Inspection, No CVA Tenderness, No Vertebral Tenderness Extremity: Normal Capillary Refill, Normal Inspection, Normal Range of Motion, Non Tender, No Calf Tenderness, No Pedal Edema Neurologic/Psychiatric: Alert, Oriented x3, Normal Mood/Affect, dye house helper II-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 FIM Transfers Therapy Code Descriptions/Definitions Functional [place] Measure: 0=Not Assessed/NA 4=Minimal Assistance 1=Total Assistance 5=Supervision or Setup 2=Maximal Assistance 6=Modified [place] 3=Moderate Assistance 7=Complete IndependenceSCALE: Activities may be completed with or without assistive devices. 1-Ttcalashqx-hqqnhnf completes the activity by him/herself with no assistance from a helper. 5-Set-up or Clean-up Assistance-helper sets up or cleans up; patient completes activity. [place] assists only prior to or following the activity. 4-Supervision or Touching Assistance-helper provides verbal cues and/or touching/steadying and/or contact guard assistance as patient completes activity. Assistance may be provided throughout the activity or intermittently. 3-Partial/Moderate Assistance-helper does LESS THAN HALF the effort. [place] lifts, holds or supports trunk or limbs, but provides less than half the effort. 2-Substantial/Maximal Assistance-helper does MORE THAN HALF the effort. [place] lifts or holds trunk or limbs and provides more than half the effort. 0-Wmvfizqze-dkxebz does ALL the effort. Patient does none of the effort to complete the activity. Or, the assistance of 2 or more helpers is required for the patient to complete the activity. If activity was not attempted, code reason: 7-Patient Refused. 9-Not Applicable-not attempted and the patient did not perform the activity before the current illness, exacerbation or injury. 10-Not Attempted due to Environmental Limitations-(lack of equipment, weather restraints, etc.). 88-Not Attempted due to Medical Conditions or Safety Concerns. Roll Left to Right (QC): 3 Sit to Lying (QC): 2 Sit to Stand (QC): 2 Chair/Ljn-gr-Cmklc Xfer(QC): 3 Car Transfer (QC): 1 Gait Training Walk 10 feet (QC): 88 Walk 50 ft with 2 Turns(QC): 88 Walk 150 ft (QC): 88 Walking 10ft/uneven surface-QC: 88 Wheelchair Training Does the Pt Use a Wheelchair?: Yes Distance: 50'x2 Wheel 50 ft with 2 turns (QC): 4 Wheel 150 ft (QC): 4 Type of Wheelchair: Manual Stair Training 1 Step (curb) (QC): 88 4 Steps (QC): 88 12 Steps (QC): 88 Balance Picking up an Object (QC): 88 ADL-Treatment Eating (QC): 6 (Pt reports independent with lunch.) Oral Hygiene (QC): 5 Shower/Bathe Self (QC): 2 (Pt able to wash BUEs, chest and abdomen. 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 12/11/19 OA h/o breast cancer Allergic rhinitis HTN GERD Depression Lung nodules [facility] 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 since [facility] stable Grave's disease Plan: IRF protocol Wean O2 Pain meds BM regimen 01/29/20: Restart Tapazole 5mg daily Knee injection by ortho will be pursued tomorrow O2 01/30/20: Right knee injection will be requested from Dr Dent Pain meds Tapazole O2 01/31/20: Knee injection not performed due to COVID related risk Monitor O2 Midline and Venofer 02/01/20: Monitor closely O2 wean IRF protocol 02/01/30: Monitor O2 Aggressive therapy 02/03/20: Stood with assist and parallel bars today Improved status IV Venofer after PICC changed 02/04/20: Monitor O2 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
[2020-02-04 06:41] VITALS: BP 121/59
--- NOTE | 2020-02-04 07:52 | NUR ---
Was told that pt is not drinking supplementation and has several in her room. Note avg PO intake is between 50-75% of meals. DC'ed order at this time. Will continue to follow and reassess as pt needs, intake, and status change. Brendon Blanc, MS RD LD
[2020-02-04] MEDS: LACTOBACILLUS ACIDOPHILUS (PROBIOTIC) CAPSULE PO SCH ×2 (08:07→21:19)
[2020-02-04] MEDS: ACETAMINOPHEN 650 MG PO SCH ×3 (08:07→21:21)
[2020-02-04] MEDS: PANTOPRAZOLE 40 MG (PROTONIX) TAB PO SCH ×2 (08:08→21:19)
[2020-02-04] MEDS: CYANOCOBALAMIN 1,000 MCG (VITAMIN B-12) TABLET PO SCH (08:08)
[2020-02-04] MEDS: ENOXAPARIN 40 MG/0.4 ML (LOVENOX) SYR SC SCH (08:08)
[2020-02-04] MEDS: GABAPENTIN 300 MG (NEURONTIN) CAP PO SCH ×3 (08:08→21:19)
[2020-02-04] MEDS: SENNA W/DOCUSATE (SENOKOT S) TABLET PO SCH ×2 (08:08→21:27)
[2020-02-04] MEDS: METHIMAZOLE 5 MG PO SCH (08:09)
[2020-02-04] MEDS: NIFEdipine ER 30 MG (PROCARDIA XL) TAB PO SCH (08:09)
[2020-02-04] MEDS: polyethylene glycoL POWDER 17 GM (MIRALAX) PACK PO SCH ×2 (08:09→21:26)
[2020-02-04] MEDS: DOCUSATE SODIUM 100 MG (COLACE) CAP PO SCH ×2 (08:09→21:18)
[2020-02-04] MEDS: SILDENAFIL 20 MG (REVATIO) TAB NON-FORMULARY PO SCH ×2 (08:10→21:19)
[2020-02-04] MEDS: MICONAZOLE 2% POWDER (DESENEX AF) 90 GM TOP SCH ×2 (08:12→21:27)
[2020-02-04] MEDS: DICLOFENAC 1% GEL 100 GM (VOLTAREN) TUBE TOP SCH ×4 (08:12→21:21)
[2020-02-04] MEDS: LIDOCAINE 4% (SALONPAS) PATCH TP SCH ×2 (08:13→21:20)
[2020-02-04] MEDS: VITAMIN D3 125 MCG (5,000 UNITS) CAPSULE PO SCH (09:21)
--- NOTE | 2020-02-04 09:47 | ST Cognitive Linguistic Eval ---
Speech Evaluation-General Medical Diagnosis critical illness myopathy Onset Date: Dec 09, 2019 Therapy Diagnosis Therapy Diagnosis: Cognitive-communication Precautions Precautions: Fall Precautions/Isolations: Standard Precautions Referral Referring Physician: Dr. Carr Medical History Pertinent Medical History: Arthritis, GERD, HTN Reviewed History: Yes Social History Current Living Status: Spouse Speech PLF-Current Status Prior Level of Function Patient lived at home with her where she was independent with all of her daily needs prior to her illness. Subjective Patient was cooperative and understanding of the need for a follow up evaluation. Language Eval: Auditory Comprehends Simple Yes/No Ques: Functional Indent/Objects [place]: Functional Ident/Pics in [place]: Functional Follows 1-Step Commands: Functional Follows Complex Directions: Mild Follows General Conversations: Functional Language Eval: Verbal Language Completes Spontaneous Greeting: Functional Produces Auto, Serial Info: Functional Imitates Simple Words/Phrases: Functional Word Finding: Mild Requests Basic Needs: Functional States Basic Personal Info: Functional Expresses Complex Ideas: Mild Objective Cognitive Domain Attention: WNL Memory: Mild Problem Solving: Mild Executive Functions: Mild Visuospatial Skills: WNL Composite Severity Rating: Mild Objective Formal/Standardized Tests Informal therapy tasks related to her needs upon her return home, memory tasks related to new information Results Patient exhibits mild confusion, decreased memory for sequencing of functional operation Oral Motor/Speech Production Within Normal Limits Impression Patient is a pleasant 74 y/o female who was admitted to ARU s/p CVA. Patient initially passed her cognitive assessment. The OT and PT staff who have been working with her have expressed concerns related to her retention of new information for safety and transfers. Patient is demonstrating difficulty with wheelchair mobility, requiring frequent verbal and tactile cuing. Patient was reassessed today with decreased memory and recall of information noted. Patient will receive skilled ST services with focus on memory of sequencing activities and safety awareness in order to return home safely. Speech Patient Assess Expression of Ideas/Wants: Expression (4) Understanding Verbal Content: Usually Understands (3) Brief Interview-Mental Status: Yes Repetition of Three Words: Three (3) Temporal Orientation: Year: Correct (3) Temporal Orientation: Month: Accurate within 5 days(2) Temporal Orientation: Day: Correct (1) Recall : Wear to say "Sock": Yes,after cueing (1) Recall : Color: Yes, after cueing (1) Recall : Bed: Yes,after cueing (1) Memory/Recall Ability: Current season, That he or she is in a hsp/hsp unit Speech Short Term Goals Short Term Goals Short Term Goals 1) Patient will follow/recall multi step directions for wheelchair mobility without cues at 90% or greater. 2) Patient will recall sequencing for daily activities without cues at 90% or greater. Speech Ux Consultant Goals Group Home Goals Patient will demonstrate safety awareness with all daily activities and processes. Speech-Plan Patient/Family Goals Patient/Family Goals: Patient plans on returning to her home where she lives with her . Treatment Plan Speech Therapy Treatment Plan: Continue Plan of Care Treatment Duration: Jan 31, 2020 Frequency: 4 times per week (Patient will receive ST 4-5x per week) Estimated Hrs Per Day: .5 hour per day Rehab Potential: Fair Barriers to Learning: Patient's recent CVA, age, cognitive deficits Pt/Family Agrees to Plan: Yes Safety Risks/Education Teaching Recipient: Patient Teaching Methods: Discussion Response to Teaching: Verbalize Understanding Education Topics Provided: Safety within her room and with mobility Time Speech Therapy Time In: 08:30 Speech Therapy Time Out: 09:00 Total Billed Time: 30 Billed Treatment Time 1, SPSNDCOMP SLROLANDO Rocha Feb 04, 2020 09:47
--- NOTE | 2020-02-04 10:27 | Physical Therapy Daily Note ---
PT Daily Note-Current Subjective Pt. agrees to Rx, expresses that she has pain in right knee at 8/10 chika with wt bearing. Pt. states she had plans for TKR but that was postponed secondary to her covid illness and the ortho has recommended she NOT have steroid injection as they believe it could reestablish covid sxs Pain Numeric Pain Scale: 8 Location: Right Location Body Site: Knee Pain Description: Stabbing Mental Status Patient Orientation: Person, Place Attachments: Oxygen (2L), Other-See Comments (mask while out of room) Transfers SCALE: Activities may be completed with or without assistive devices. 4-Ekmjayncyg-dltjwpr completes the activity by him/herself with no assistance from a helper. 5-Set-up or Clean-up Assistance-helper sets up or cleans up; patient completes activity. [place] assists only prior to or following the activity. 4-Supervision or Touching Assistance-helper provides verbal cues and/or touching/steadying and/or contact guard assistance as patient completes activity. Assistance may be provided throughout the activity or intermittently. 3-Partial/Moderate Assistance-helper does LESS THAN HALF the effort. [place] lifts, holds or supports trunk or limbs, but provides less than half the effort. 2-Substantial/Maximal Assistance-helper does MORE THAN HALF the effort. [place] lifts or holds trunk or limbs and provides more than half the effort. 6-Vyakshkhk-vgaykw does ALL the effort. Patient does none of the effort to complete the activity. Or, the assistance of 2 or more helpers is required for the patient to complete the activity. If activity was not attempted, code reason: 7-Patient Refused. 9-Not Applicable-not attempted and the patient did not perform the activity before the current illness, exacerbation or injury. 10-Not Attempted due to Environmental Limitations-(lack of equipment, weather restraints, etc.). 88-Not Attempted due to Medical Conditions or Safety Concerns. Roll Left & Right (QC): 3 Sit to Lying (QC): 3 Lying to Sitting/Side of Bed(Q: 3 Sit to Stand (QC): 2 Chair/Vnl-pc-Zraww Xfer(QC): 1 Toilet Transfer (QC): 1 sup to side to sit requires mod assist, sit to stand lift used bed to BSC to w/c to Nustep to w/c to recliner all with good results, no c/o discomfort and a better opportunity to stand and get wt bearing through LEs Weight Bearing Full Weight Bearing Full Weight Bearing Gait Training Does the Patient Walk?: No and Walking Goal IS indicated Wheelchair Training Does the Pt Use a Wheelchair?: Yes Wheel 50 ft with 2 turns (QC): 4 Type of Wheelchair: Manual needs near constant instruction for use of hands for turns and for braking. Exercises Supine Ex: Quad Set, Rolling, Glut sets, Heel Slides Supine Reps: 20 Seated Therapy Exercises: Ankle pumps, Long arc quads Seated Reps: 15 Treatments PT OT co Rx for rolling, bed bathing, dressing, TRFs, toileting ,w/c mobility and exercises. Pts level of weakness and debility as well as need for coordinati on of skilled services bringing more efficient Rx program for pt Assessment Current Status: Good Progress conts dependent for TRFs and mobility PT Short Term Goals Short Term Goals Time Frame: Feb 04, 2020 Roll Left & Right: 4 Sit to lyin Lying to sitting on side of be: 3 Sit to stand: 3 Chair/qfx-vo-fdhko transfer: 3 Walk 10 feet: 3 PT Rubber Production Machine Operator Goals Rubber Production Machine Operator Goals PT Rubber Production Machine Operator Goals Time Frame: Feb 18, 2020 Roll Left & Right (QC): 6 Sit to Lying (QC): 4 Lying-Sitting on Side/Bed(QC): 4 Sit to Stand (QC): 3 ([place]) Chair/Qpo-vi-Iyfdn Xfer(QC): 3 (Shelby) Toilet Transfer (QC): 3 (Shelby) Car Transfer (QC): 3 (Shelby) Does the Patient Walk: No and Walking Goal IS indicated Walk 10 feet (QC): 3 Walk 50ft with 2 Turns (QC): 3 Walk 150 ft (QC): 88 Walking 10ft on Uneven Surface: 88 1 Step (curb) (QC): 88 4 Steps (QC): 88 12 Steps (QC): 88 Picking up an Object (QC): 88 Wheel 50 feet with 2 turns (QC: 6 Wheel 150 feet: 6 PT Plan Treatment/Plan Treatment Plan: Continue Plan of Care Treatment Plan: Bed Mobility, Education, Functional Activity Renny, Functional Strength, Group Therapy, Gait, Safety, Therapeutic Exercise, Transfers Treatment Duration: Feb 18, 2020 Frequency: At least 5 of 7 days/Wk (IRF) Estimated Hrs Per Day: 1.5 hours per day Patient and/or Family Agrees t: Yes Safety Risks/Education Patient Education: Transfer Techniques, Correct Positioning, W/C Management, Disease Process, Safety Issues Teaching Recipient: Patient Teaching Methods: Demonstration, Discussion Response to Teaching: Verbalize Understanding, Return Demonstration, Reinforcement Needed Time/GCodes Time In: 900 Time Out: 1015 Total Billed Treatment Time: 75 Total Billed Treatment 1,FA45m,EX15m,WC15m (75m Rx co RX w OT) KENZIE MORE SAND CUTTER Feb 04, 2020 10:27
--- NOTE | 2020-02-04 13:24 | Occupational Ther Daily Note ---
OT Current Status-Daily Note Subjective Pt in bed, agreeable to OT tx. Pt indicates 8/10 pain in R knee Mental Status/Objective Attachments: Oxygen ADL-Treatment Therapy Code Descriptions/Definitions Functional [place] Measure: 0=Not Assessed/NA 4=Minimal Assistance 1=Total Assistance 5=Supervision or Setup 2=Maximal Assistance 6=Modified [place] 3=Moderate Assistance 7=Complete IndependenceSCALE: Activities may be completed with or without assistive devices. 8-Febkyvmexs-yahmfio completes the activity by him/herself with no assistance from a helper. 5-Set-up or Clean-up Assistance-helper sets up or cleans up; patient completes activity. [place] assists only prior to or following the activity. 4-Supervision or Touching Assistance-helper provides verbal cues and/or touching/steadying and/or contact guard assistance as patient completes activity. Assistance may be provided throughout the activity or intermittently. 3-Partial/Moderate Assistance-helper does LESS THAN HALF the effort. [place] lifts, holds or supports trunk or limbs, but provides less than half the effort. 2-Substantial/Maximal Assistance-helper does MORE THAN HALF the effort. [place] lifts or holds trunk or limbs and provides more than half the effort. 2-Dqhpovzjy-habgzd does ALL the effort. Patient does none of the effort to complete the activity. Or, the assistance of 2 or more helpers is required for the patient to complete the activity. If activity was not attempted, code reason: 7-Patient Refused. 9-Not Applicable-not attempted and the patient did not perform the activity before the current illness, exacerbation or injury. 10-Not Attempted due to Environmental Limitations-(lack of equipment, weather restraints, etc.). 88-Not Attempted due to Medical Conditions or Safety Concerns. Shower/Bathe Self (QC): 3 (Mod A. Pt completed sponge bath at bed level, able to wash BUEs, chest/abdomen. OT assisted pt with placing and holding LEs in figure 4 method, pt able to partially wash LEs, assist with thoroguhness) Lower Body Dressing (QC): 3 (Assist to thread RLE into pants/brief, OT held LLE in figure 4 position, pt able to thread RLE and complete pant hike at bed level.) On/Off Footwear: 4 (SBA, pt able to don slip on shoes at EOB) Toileting Hygiene (QC): 1 (x2 assist, 1 to assist with stand and 1 to assit with clothing management and hygiene) Toilet Transfer (QC): 1 (Max A stand pivot transfer from EOB to BSC. Sit to stand lift from BSC to w/c) Other Treatment OT/PT cotreat due to skill of 2 clinicians required which a rehabilitation director could not perform in order to coordinate UE/LE with tasks, and due to pt's limitations in functional strength, endurance, mobility. OT focused on ADLs, UE placement, cues for sequencing and safety and assistance with transfers while PT focused on LE placement, gross overall movements, and transfers. Pt completed sponge bath at bed level, assist with placing LEs in figure 4 method in order for pt to wash LEs/feet. Pt dressed at bed level, assist with LE positioning in figure 4 method to thread BLEs. Pt transferred supine to sit EOB, donned shirt and shoes. Pt completed SPT from EOB to BSC, hard max A with 2 person. Pt completed toileting, required 2 person assistance. Sit to stand lift from BSC to w/c, pt self- propelled to therapy gym requiring near constant cues for hand placement and sequencing. Sit to stand from w/c to NuStep. In order to increase functional endurance and strength, pt completed x5 mins on NuStep using LEs and UEs for task. Pt transferred back to w/c using sit to stand, taken back to room, sit to stand lift to recliner. Post tx, pt seated in recliner, call light in reach and all needs met. Education OT Patient Education: Correct positioning, Energy conservation, Exercise program, Modified ADL techniques, Progress toward Goal/Update tx plan, Purpose of tx/functional activities, Transfer techniques, W/C management Teaching Recipient: Patient Teaching Methods: Discussion Response to Teaching: Verbalize Understanding OT Short Term Goals Short Term Goals Time Frame: Feb 09, 2020 Toileting hygiene: 3 Lower body dressin Putting on/taking off footwear: 3 OT Java Developer Analyst Goals Senior Living Goals Time Frame: Feb 18, 2020 Eating (QC): 6 Oral Hygiene (QC): 6 Toileting Hygiene (QC): 6 Shower/Bathe Self (QC): 6 Upper Body Dressing (QC): 6 Lower Body Dressing (QC): 6 On/Off Footwear (QC): 6 Additional Goals: 1-Demonstrate ADL Tasks, 2-Verbalize Understanding, 3- ImproveStrength/Renny 1=Demonstrate adherence to instructed precautions during ADL tasks. 2=Patient will verbalize/demonstrate understanding of assistive devices/modifications for ADL. 3=Patient will improve strength/tolerance for activity to enable patient to perform ADL's. OT Education/Plan Problem List/Assessment Assessment: Decreased Activ Tolerance, Decreased UE Strength, Impaired Funct Balance, Impaired I ADL's, Impaired Self-Care Skills Discharge Recommendations Plan/Recommendations: Continue POC Treatment Plan/Plan of Care Patient would benefit from OT for education, treatment and training to promote independence in ADL's, mobility, safety and/or upper extremity function for ADL's. Plan of Care: ADL Retraining, Functional Mobility, Group Exercise/Act as Ind, UE Funct Exercise/Act Treatment Duration: Feb 18, 2020 Frequency: At least 5 of 7 days/Wk (IRF) Estimated Hrs Per Day: 1.5 hours per day Agreement: Yes Rehab Potential: Fair Time/GCodes Start Time: 09:00 Stop Time: 10:15 Total Time Billed (hr/min): 75 Billed Treatment Time cotreat x75' 1, ADL 4 (60'), FA (15') ISIDRO MACIEL OT Feb 04, 2020 13:24
[2020-02-04] MEDS: IRON SUCROSE 200 MG/10 ML (VENOFER) VIAL IV SCH (15:15)
[2020-02-04 18:00] VITALS: BP 152/69
[2020-02-04] MEDS: SERTRALINE 50 MG (ZOLOFT) TABLET PO SCH (21:19)
[2020-02-04] MEDS: MELATONIN 3 MG TABLET PO PRN (21:19)
[2020-02-05 05:29] VITALS: BP 153/67
[2020-02-05 08:00] VITALS: BP 138/64
[2020-02-05] MEDS ORDERED: IRON SUCROSE 200 MG/10 ML (VENOFER) VIAL IV SCH (09:00)
--- NOTE | 2020-02-05 09:30 | Physical Therapy Daily Note ---
PT Daily Note-Current Subjective Pt states she is in severe pain upon arrival. Pt reports her (R) knee "has something wrong with it". Pt resting with ice pack on (R) knee in bed. Pt denies pain post therapy session. Pt reports much improvement in knee pain post therapy. Mental Status Patient Orientation: Person, Place, Situation Transfers SCALE: Activities may be completed with or without assistive devices. 6-Drqiuscsas-vymoizh completes the activity by him/herself with no assistance from a helper. 5-Set-up or Clean-up Assistance-helper sets up or cleans up; patient completes activity. [place] assists only prior to or following the activity. 4-Supervision or Touching Assistance-helper provides verbal cues and/or touching/steadying and/or contact guard assistance as patient completes activity. Assistance may be provided throughout the activity or intermittently. 3-Partial/Moderate Assistance-helper does LESS THAN HALF the effort. [place] lifts, holds or supports trunk or limbs, but provides less than half the effort. 2-Substantial/Maximal Assistance-helper does MORE THAN HALF the effort. [place] lifts or holds trunk or limbs and provides more than half the effort. 6-Czkzjgdxc-eozexs does ALL the effort. Patient does none of the effort to complete the activity. Or, the assistance of 2 or more helpers is required for the patient to complete the activity. If activity was not attempted, code reason: 7-Patient Refused. 9-Not Applicable-not attempted and the patient did not perform the activity before the current illness, exacerbation or injury. 10-Not Attempted due to Environmental Limitations-(lack of equipment, weather restraints, etc.). 88-Not Attempted due to Medical Conditions or Safety Concerns. Weight Bearing Full Weight Bearing Full Weight Bearing Treatments Patellar mobs all directions (R) knee. PROM (R) knee with (R) LE on therapy ball x 20 with light distraction each rep in ext position. (B) SAQ, QS x 20 each. Marching with min A (B) LE -added opp hand to opp knee x 20 each. Transfer to EOB with min A, vc's for sequence. Attempted standing at bedside x 3 trials. Pt able to stand 1st attempt and clear bottom off of bed, unable to next 2 attempts due to weakness. Pt able to scoot self in her bed nicely. Pt repositioned with (B) LE floating on pillows. Pt call light in reach and all needs met. O2 per nasal canula throughout. Assessment Current Status: Good Progress, Fair Progress Pt chelo well. Did not appear SOB with exertion. Pt deconditioned and weak, limited by knee pain at times but did very well with standing today. Pt did not c/o pain during attempts to stand. Pt tearful after treatment as she felt she made progress today. Pt needs met. PT Short Term Goals Short Term Goals Time Frame: Feb 04, 2020 Roll Left & Right: 4 Sit to lyin Lying to sitting on side of be: 3 Sit to stand: 3 Chair/wud-oa-hqzqi transfer: 3 Walk 10 feet: 3 PT Warp Dresser Goals Warp Dresser Goals PT Warp Dresser Goals Time Frame: Feb 18, 2020 Roll Left & Right (QC): 6 Sit to Lying (QC): 4 Lying-Sitting on Side/Bed(QC): 4 Sit to Stand (QC): 3 (Shelby) Chair/Pry-ls-Jmhbx Xfer(QC): 3 (Shelby) Toilet Transfer (QC): 3 (Shelby) Car Transfer (QC): 3 ([place]helby) Does the Patient Walk: No and Walking Goal IS indicated Walk 10 feet (QC): 3 Walk 50ft with 2 Turns (QC): 3 Walk 150 ft (QC): 88 Walking 10ft on Uneven Surface: 88 1 Step (curb) (QC): 88 4 Steps (QC): 88 12 Steps (QC): 88 Picking up an Object (QC): 88 Wheel 50 feet with 2 turns (QC: 6 Wheel 150 feet: 6 PT Plan Treatment/Plan Treatment Plan: Continue Plan of Care Treatment Plan: Bed Mobility, Education, Functional Activity Renny, Functional Strength, Group Therapy, Gait, Safety, Therapeutic Exercise, Transfers Treatment Duration: Feb 18, 2020 Frequency: At least 5 of 7 days/Wk (IRF) Estimated Hrs Per Day: 1.5 hours per day Patient and/or Family Agrees t: Yes Time/GCodes Time In: 935 Time Out: 1015 Total Billed Treatment Time: 40 Total Billed Treatment 1, ther ex 15', FA 25' PEPITO BOOGIE CPTA Feb 05, 2020 09:30
[2020-02-05] MEDS: GABAPENTIN 300 MG (NEURONTIN) CAP PO SCH ×3 (09:47→20:21)
[2020-02-05] MEDS: LACTOBACILLUS ACIDOPHILUS (PROBIOTIC) CAPSULE PO SCH ×2 (09:47→20:21)
[2020-02-05] MEDS: METHIMAZOLE 5 MG PO SCH (09:47)
[2020-02-05] MEDS: CYANOCOBALAMIN 1,000 MCG (VITAMIN B-12) TABLET PO SCH (09:48)
[2020-02-05] MEDS: DOCUSATE SODIUM 100 MG (COLACE) CAP PO SCH ×2 (09:49→20:21)
[2020-02-05] MEDS: VITAMIN D3 125 MCG (5,000 UNITS) CAPSULE PO SCH (09:50)
[2020-02-05] MEDS: PANTOPRAZOLE 40 MG (PROTONIX) TAB PO SCH ×2 (09:50→20:22)
[2020-02-05] MEDS: NIFEdipine ER 30 MG (PROCARDIA XL) TAB PO SCH (09:50)
[2020-02-05] MEDS: SENNA W/DOCUSATE (SENOKOT S) TABLET PO SCH ×2 (09:50→20:25)
[2020-02-05] MEDS: SILDENAFIL 20 MG (REVATIO) TAB NON-FORMULARY PO SCH ×2 (09:51→20:23)
[2020-02-05] MEDS: ACETAMINOPHEN 650 MG PO SCH ×3 (09:52→20:24)
[2020-02-05] MEDS: ENOXAPARIN 40 MG/0.4 ML (LOVENOX) SYR SC SCH (09:58)
[2020-02-05] MEDS: polyethylene glycoL POWDER 17 GM (MIRALAX) PACK PO SCH ×2 (10:16→20:25)
[2020-02-05] MEDS: DICLOFENAC 1% GEL 100 GM (VOLTAREN) TUBE TOP SCH ×4 (10:17→20:37)
[2020-02-05] MEDS: MICONAZOLE 2% POWDER (DESENEX AF) 90 GM TOP SCH ×2 (10:18→20:43)
[2020-02-05] MEDS: LIDOCAINE 4% (SALONPAS) PATCH TP SCH ×2 (10:18→20:36)
--- NOTE | 2020-02-05 11:52 | PM&R Progress Note ---
Subjective HPI/CC On Admission Date Seen by Provider: Feb 05, 2020 Time Seen by Provider: 10:30 Subjective/Events-last exam 02/05/20: Tearful at times Right knee pain is terrible at times Mobic will be restarted along with other home meds that have now been reviewed 02/04/20: Using sit to stand very well Heels are red so managing that O2 on/off 02/03/20: Oxycodone and Xanax ordered APAP Skateboard Standing with assist Memory loss noted Less edema right knee BM 02/02: Pt doing pretty well Participating in therapy Very motivated to improve Maintained on O2 2 liters 02/01/20: Right knee pain continues but considering the risk for complications from steroid injection after Covid, she will be managing Overall doing pretty well on 2 L of Oxygen Will replace Picc line since it was placed in the arm where she has had her previous mastectomy 01/31/20: Dr. Dent graciously agreed to see her for right knee pain and will initiate an injection Hgb 9.1 so midline will be placed with iron infusions 2 L of oxygen maintained After rounds Dr Dent updated me on the fact that no injection initiated due to high risk following COVID 01/30/20: Right knee pain continues Will reach out to Dr Dent tomorrow Tapazole restarted Midline needed for iron infusions Severe right knee pain 11/26 today so adjusted her pain meds and xray noted severe OA Dr Scott usually gives her a right knee injections every 3 months and she is overdue I will try to have ortho give pain injection Friday Tapazole not on her list and she has Graves disease she states O2 at 80% so will maintain 2L/min O2 Checking iron level since hgb 9.1 Adding TSH FT4 to labs BM today loose Review of Systems General: Fatigue Pulmonary: Dyspnea Musculoskeletal: leg pain Neurological: Weakness, Incoordination Objective Exam Vital Signs Vital Signs Date Time Temp Pulse Resp B/P (MAP) Pulse Ox O2 Delivery O2 Flow Rate FiO2 02/06/20 06:03 36.6 74 18 144/67 (92) 97 Nasal Cannula 1.50 Capillary Refill : Less Than 3 Seconds General Appearance: No Apparent Distress, WD/WN, Chronically ill HEENT: PERRL/EOMI, Normal ENT Inspection, Pharynx Normal Neck: Full Range of Motion, Normal Inspection, Non Tender, Supple, Carotid Bruit Respiratory: Chest Non Tender, Lungs Clear, No Accessory Muscle Use, No Respiratory Distress, Decreased Breath Sounds Cardiovascular: Regular Rate, Rhythm, No Edema, No Gallop, No JVD, No Murmur, Normal Peripheral Pulses Gastrointestinal: Normal Bowel Sounds, No Organomegaly, No Pulsatile Mass, Non Tender, Soft Back: Normal Inspection, No CVA Tenderness, No Vertebral Tenderness Extremity: Normal Capillary Refill, Normal Inspection, Normal Range of Motion, Non Tender, No Calf Tenderness, No Pedal Edema Neurologic/Psychiatric: Alert, Oriented x3, Normal Mood/Affect, district ranger II-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 FIM Transfers Therapy Code Descriptions/Definitions Functional [place] Measure: 0=Not Assessed/NA 4=Minimal Assistance 1=Total Assistance 5=Supervision or Setup 2=Maximal Assistance 6=Modified [place] 3=Moderate Assistance 7=Complete IndependenceSCALE: Activities may be completed with or without assistive devices. 3-Hfegivqvxg-ofyqigq completes the activity by him/herself with no assistance from a helper. 5-Set-up or Clean-up Assistance-helper sets up or cleans up; patient completes activity. [place] assists only prior to or following the activity. 4-Supervision or Touching Assistance-helper provides verbal cues and/or touching/steadying and/or contact guard assistance as patient completes activity . Assistance may be provided throughout the activity or intermittently. 3-Partial/Moderate Assistance-helper does LESS THAN HALF the effort. [place] lifts, holds or supports trunk or limbs, but provides less than half the effort. 2-Substantial/Maximal Assistance-helper does MORE THAN HALF the effort. [place] lifts or holds trunk or limbs and provides more than half the effort. 3-Fvininpig-kscowt does ALL the effort. Patient does none of the effort to complete the activity. Or, the assistance of 2 or more helpers is required for the patient to complete the activity. If activity was not attempted, code reason: 7-Patient Refused. 9-Not Applicable-not attempted and the patient did not perform the activity before the current illness, exacerbation or injury. 10-Not Attempted due to Environmental Limitations-(lack of equipment, weather restraints, etc.). 88-Not Attempted due to Medical Conditions or Safety Concerns. Roll Left to Right (QC): 3 Sit to Lying (QC): 3 Sit to Stand (QC): 2 Chair/Oad-fr-Vzhoi Xfer(QC): 1 Car Transfer (QC): 1 Gait Training Does the Patient Walk?: No and Walking Goal IS indicated Walk 10 feet (QC): 88 Walk 50 ft with 2 Turns(QC): 88 Walk 150 ft (QC): 88 Walking 10ft/uneven surface-QC: 88 Wheelchair Training Does the Pt Use a Wheelchair?: Yes Distance: 50'x2 Wheel 50 ft with 2 turns (QC): 4 Wheel 150 ft (QC): 4 Type of Wheelchair: Manual Stair Training 1 Step (curb) (QC): 88 4 Steps (QC): 88 12 Steps (QC): 88 Balance Picking up an Object (QC): 88 ADL-Treatment Eating (QC): 6 (Pt reports independent with lunch.) Oral Hygiene (QC): 5 Shower/Bathe Self (QC): 3 (Mod A. Pt completed sponge bath at bed level, able to wash BUEs, chest/abdomen. OT assisted pt with placing and holding LEs in figure 4 method, pt able to partially wash LEs, assist with thoroguhness) Upper Body Dressing (QC): 3 (Pt able to thread UEs and head, Min A with managing down over abdomen) Lower Body Dressing (QC): 3 (Assist to thread RLE into pants/brief, OT held LLE in figure 4 position, pt able to thread RLE and complete pant hike at bed level.) On/Off Footwear (QC): 4 (SBA, pt able to don slip on shoes at EOB) Toileting Hygiene (QC): 1 (x2 assist, 1 to assist with stand and 1 to assit with clothing management and hygiene) Toilet Transfer (QC): 1 (Max A stand pivot transfer from EOB to BSC. Sit to stand lift from BSC to w/c) Assessment/Plan Assessment and Plan Assess & Plan/Chief Complaint Assessment: Critical illness debility from COVID-19 dx 12/11/19 OA h/o breast cancer Allergic rhinitis HTN GERD Depression Lung nodules [facility] 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 since rn long term care stable Grave's disease Plan: IRF protocol Wean O2 Pain meds BM regimen 01/29/20: Restart Tapazole 5mg daily Knee injection by ortho will be pursued tomorrow O2 01/30/20: Right knee injection will be requested from Dr Dent Pain meds Tapazole O2 01/31/20: Knee injection not performed due to COVID related risk Monitor O2 Midline and Venofer 02/01/20: Monitor closely O2 wean IRF protocol 02/01/30: Monitor O2 Aggressive therapy 02/03/20: Stood with assist and parallel bars today Improved status IV Venofer after PICC changed 02/04/20: Monitor O2 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
[2020-02-05] MEDS ORDERED: GABAPENTIN 600 MG (NEURONTIN) TAB PO SCH (13:00)
[2020-02-05] MEDS ORDERED: NON-FORMULARY MEDICATION 1 EA EA (Acetaminophen (Tylenol Arthritis) 650 MG) PO SCH (13:00)
--- NOTE | 2020-02-05 14:00 | NUR ---
UP WITH TRU-EM-DDGIA AND SAT UP IN CHAIR X 2 HOURS. MAIN COMPLAIN IS RIGHT KNEE PAIN. DR. HURD NOTIFIED AND WILL START BACK ON [facility]. PATIENT STATES P.T. TREATMENT WORKING WITH BALL ON RIGHT LEG "REALLY HELPED MY KNEE". WAS CRYING THIS AM - FEELS IS MAKING SLOW PROGRESS.
[2020-02-05] MEDS: oxyCODONE/APAP 5/325MG (PERCOCET 5) TABLET PO PRN ×2 (17:20→20:23)
[2020-02-05 17:57] VITALS: BP 148/71
--- NOTE | 2020-02-05 19:00 | NUR ---
UP IN CHAIR X2 TODAY AND UP TO COMMODE X 2. BM X 3 TODAY. A FAIRLY GOOD DAY.
--- NOTE | 2020-02-05 19:08 | NUR ---
Bedside report received from NAHOMY DEE, assume care of pt
--- NOTE | 2020-02-05 20:20 | NUR ---
Back to bed after voiding on commode with sit to stand
[2020-02-05] MEDS: PRAMIPEXOLE 0.125 MG (MIRAPEX) TABLET PO SCH (20:21)
[2020-02-05] MEDS: SERTRALINE 50 MG (ZOLOFT) TABLET PO SCH (20:22)
[2020-02-05] MEDS: ALPRAZolam 0.25 MG (XANAX) TAB PO SCH (20:22)
--- NOTE | 2020-02-05 20:23 | NUR ---
Pt took Colace but refused Miralax, Senokot & Colestid, c/o rt knee pain pain level 8/10 on numeric scale, Oxyir 5mg given, Voltaren & Salonpas
[2020-02-05] MEDS: COLESTIPOL 1 GM (COLESTID) TAB PO SCH (20:25)
--- NOTE | 2020-02-05 21:15 | NUR ---
Rates pain 5/10 on numeric scale
--- NOTE | 2020-02-06 01:58 | NUR ---
Pt c/o pain to RT knee, pain level 8/10 on numeric scale, Oxyir 5mg given
--- NOTE | 2020-02-06 02:40 | NUR ---
resting quietly in bed, pain level 0/10 on CNPI SCALE
[2020-02-06 05:40] VITALS: BP 144/67
[2020-02-06 06:03] VITALS: BP 144/67
[2020-02-06 06:38] VITALS: BP 137/71
--- NOTE | 2020-02-06 06:38 | NUR ---
states feel dizzy, v/s [id number]%- 137/71, advised maybe because did not sleep well & took pain med [id number]
--- NOTE | 2020-02-06 07:31 | PM&R Progress Note ---
Subjective HPI/CC On Admission Date Seen by Provider: Feb 06, 2020 Time Seen by Provider: 10:00 Subjective/Events-last exam 02/06/20: Has multiple little complaints DC PICC since it simply did not function properly DC Venofer O2 on 1L/min 02/05/20: Tearful at times Right knee pain is terrible at times Mobic will be restarted along with other home meds that have now been reviewed 02/04/20: Using sit to stand very well Heels are red so managing that O2 on/off 02/03/20: Oxycodone and Xanax ordered APAP Skateboard Standing with assist Memory loss noted Less edema right knee BM 02/02: Pt doing pretty well Participating in therapy Very motivated to improve Maintained on O2 2 liters 02/01/20: Right knee pain continues but considering the risk for complications from steroid injection after Covid, she will be managing Overall doing pretty well on 2 L of Oxygen Will replace Picc line since it was placed in the arm where she has had her previous mastectomy 01/31/20: Dr. Dent graciously agreed to see her for right knee pain and will initiate an injection Hgb 9.1 so midline will be placed with iron infusions 2 L of oxygen maintained After rounds Dr Dent updated me on the fact that no injection initiated due to high risk following COVID 01/30/20: Right knee pain continues Will reach out to Dr Dent tomorrow Tapazole restarted Midline needed for iron infusions Severe right knee pain 10/10 today so adjusted her pain meds and xray noted severe OA Dr Scott usually gives her a right knee injections every 3 months and she is overdue I will try to have ortho give pain injection Friday Tapazole not on her list and she has Graves disease she states O2 at 80% so will maintain 2L/min O2 Checking iron level since hgb 9.1 Adding TSH FT4 to labs BM today loose Review of Systems General: Fatigue, Malaise Pulmonary: Dyspnea Musculoskeletal: leg pain Objective Exam Vital Signs Vital Signs Date Time Temp Pulse Resp B/P (MAP) Pulse Ox O2 Delivery O2 Flow Rate FiO2 02/07/20 05:17 36.4 77 20 134/63 (86) 94 Nasal Cannula 1.00 Capillary Refill : Less Than 3 Seconds General Appearance: No Apparent Distress, WD/WN, Chronically ill HEENT: PERRL/EOMI, Normal ENT Inspection, Pharynx Normal Neck: Full Range of Motion, Normal Inspection, Non Tender, Supple, Carotid Bru it Respiratory: Chest Non Tender, Lungs Clear, No Accessory Muscle Use, No Res piratory Distress, Decreased Breath Sounds Cardiovascular: Regular Rate, Rhythm, No Edema, No Gallop, No JVD, No Murmur, Normal Peripheral Pulses Gastrointestinal: Normal Bowel Sounds, No Organomegaly, No Pulsatile Mass, Non Tender, Soft Back: Normal Inspection, No CVA Tenderness, No Vertebral Tenderness Extremity: Normal Capillary Refill, Normal Inspection, Normal Range of Motion, Non Tender, No Calf Tenderness, No Pedal Edema Neurologic/Psychiatric: Alert, Oriented x3, Normal Mood/Affect, 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 FIM Transfers Therapy Code Descriptions/Definitions Functional [place] Measure: 0=Not Assessed/NA 4=Minimal Assistance 1=Total Assistance 5=Supervision or Setup 2=Maximal Assistance 6=Modified [place] 3=Moderate Assistance 7=Complete IndependenceSCALE: Activities may be completed with or without assistive devices. 5-Ycxwyerxcb-iizyiua completes the activity by him/herself with no assistance from a helper. 5-Set-up or Clean-up Assistance-helper sets up or cleans up; patient completes activity. [place] assists only prior to or following the activity. 4-Supervision or Touching Assistance-helper provides verbal cues and/or touching/steadying and/or contact guard assistance as patient completes activity. Assistance may be provided throughout the activity or intermittently. 3-Partial/Moderate Assistance-helper does LESS THAN HALF the effort. [place] lifts, holds or supports trunk or limbs, but provides less than half the effort. 2-Substantial/Maximal Assistance-helper does MORE THAN HALF the effort. [place] lifts or holds trunk or limbs and provides more than half the effort. 9-Qmziwrayd-wexcsy does ALL the effort. Patient does none of the effort to complete the activity. Or, the assistance of 2 or more helpers is required for the patient to complete the activity. If activity was not attempted, code reason: 7-Patient Refused. 9-Not Applicable-not attempted and the patient did not perform the activity before the current illness, exacerbation or injury. 10-Not Attempted due to Environmental Limitations-(lack of equipment, weather restraints, etc.). 88-Not Attempted due to Medical Conditions or Safety Concerns. Roll Left to Right (QC): 3 Sit to Lying (QC): 3 Sit to Stand (QC): 2 Chair/Hac-yd-Dgkdt Xfer(QC): 1 Car Transfer (QC): 1 Gait Training Does the Patient Walk?: No and Walking Goal IS indicated Walk 10 feet (QC): 88 Walk 50 ft with 2 Turns(QC): 88 Walk 150 ft (QC): 88 Walking 10ft/uneven surface-QC: 88 Wheelchair Training Does the Pt Use a Wheelchair?: Yes Distance: 50'x2 Wheel 50 ft with 2 turns (QC): 4 Wheel 150 ft (QC): 4 Type of Wheelchair: Manual Stair Training 1 Step (curb) (QC): 88 4 Steps (QC): 88 12 Steps (QC): 88 Balance Picking up an Object (QC): 88 ADL-Treatment Eating (QC): 6 (Pt reports independent with lunch.) Oral Hygiene (QC): 5 Shower/Bathe Self (QC): 3 (Mod A. Pt completed sponge bath at bed level, able to wash BUEs, chest/abdomen. OT assisted pt with placing and holding LEs in figure 4 method, pt able to partially wash LEs, assist with thoroguhness) Upper Body Dressing (QC): 3 (Pt able to thread UEs and head, Min A with managing down over abdomen) Lower Body Dressing (QC): 3 (Assist to thread RLE into pants/brief, OT held LLE in figure 4 position, pt able to thread RLE and complete pant hike at bed level.) On/Off Footwear (QC): 4 (SBA, pt able to don slip on shoes at EOB) Toileting Hygiene (QC): 1 (x2 assist, 1 to assist with stand and 1 to assit with clothing management and hygiene) Toilet Transfer (QC): 1 (Max A stand pivot transfer from EOB to BSC. 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 Grave's disease Plan: IRF protocol Wean O2 Pain meds BM regimen 01/29/20: Restart Tapazole 5mg daily Knee injection by ortho will be pursued tomorrow O2 01/30/20: Right knee injection will be requested from Dr Dent Pain meds Tapazole O2 01/31/20: Knee injection not performed due to COVID related risk Monitor O2 Midline and Venofer 02/01/20: Monitor closely O2 wean IRF protocol 02/01/30: Monitor O2 Aggressive therapy 02/03/20: Stood with assist and parallel bars today Improved status IV Venofer after PICC changed 02/04/20: Monitor O2 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
[2020-02-06] MEDS: MELOXICAM 7.5 MG (MOBIC) TABLET PO SCH (08:50)
[2020-02-06] MEDS: COLESTIPOL 1 GM (COLESTID) TAB PO SCH ×2 (08:50→21:57)
[2020-02-06] MEDS: VALSARTAN 160 MG (DIOVAN) TABLET PO SCH (08:50)
[2020-02-06] MEDS: SERTRALINE 100 MG (ZOLOFT) TAB PO SCH (08:51)
[2020-02-06] MEDS: LACTOBACILLUS ACIDOPHILUS (PROBIOTIC) CAPSULE PO SCH ×2 (08:51→21:47)
[2020-02-06] MEDS: GABAPENTIN 300 MG (NEURONTIN) CAP PO SCH ×3 (08:51→21:46)
[2020-02-06] MEDS: NIFEdipine ER 30 MG (PROCARDIA XL) TAB PO SCH (08:52)
[2020-02-06] MEDS: ALPRAZolam 0.25 MG (XANAX) TAB PO SCH ×2 (08:52→21:46)
[2020-02-06] MEDS: LIDOCAINE 4% (SALONPAS) PATCH TP SCH ×2 (08:52→21:47)
[2020-02-06] MEDS: ASCORBIC ACID (VIT C) 500 MG TABLET PO SCH (08:52)
[2020-02-06] MEDS: VITAMIN D3 125 MCG (5,000 UNITS) CAPSULE PO SCH (08:53)
[2020-02-06] MEDS: CYANOCOBALAMIN 1,000 MCG (VITAMIN B-12) TABLET PO SCH (08:53)
[2020-02-06] MEDS: METHIMAZOLE 5 MG PO SCH (08:53)
[2020-02-06] MEDS: SILDENAFIL 20 MG (REVATIO) TAB NON-FORMULARY PO SCH ×2 (08:53→21:48)
[2020-02-06] MEDS: ENOXAPARIN 40 MG/0.4 ML (LOVENOX) SYR SC SCH (08:57)
[2020-02-06] MEDS ORDERED: PANTOPRAZOLE 40 MG (PROTONIX) TAB PO SCH (09:00)
[2020-02-06] MEDS: PANTOPRAZOLE 40 MG (PROTONIX) TAB PO SCH ×2 (09:00→21:47)
[2020-02-06] MEDS ORDERED: METHIMAZOLE 5 MG PO SCH (09:00)
[2020-02-06] MEDS: DOCUSATE SODIUM 100 MG (COLACE) CAP PO SCH ×2 (09:14→21:57)
[2020-02-06] MEDS: polyethylene glycoL POWDER 17 GM (MIRALAX) PACK PO SCH ×2 (09:14→21:57)
[2020-02-06] MEDS: SENNA W/DOCUSATE (SENOKOT S) TABLET PO SCH ×2 (09:20→21:48)
[2020-02-06] MEDS: MICONAZOLE 2% POWDER (DESENEX AF) 90 GM TOP SCH ×2 (09:20→21:52)
[2020-02-06] MEDS: ACETAMINOPHEN 650 MG PO SCH ×3 (09:20→21:59)
[2020-02-06] MEDS: DICLOFENAC 1% GEL 100 GM (VOLTAREN) TUBE TOP SCH ×4 (09:21→21:52)
[2020-02-06] MEDS: CALCIUM CARBONATE 500 MG (TUMS) TAB.CHEW PO PRN (09:39)
--- NOTE | 2020-02-06 10:00 | NUR ---
STATES SLEPT POOR AND NEEDS A DAY OF REST. VERY NEEDY THIS AM. O2 SATS HAVE BEEN GOOD ON 1.5 L AND TITRATED TO 1 L.
--- NOTE | 2020-02-06 11:30 | NUR ---
IV IN RIGHT UPPER ARM LEAKING AND DC'D. DR. HURD NOTIFIED OF NO IV ACCESS AND VENOFER DC'D.
[2020-02-06 18:00] VITALS: BP 142/65
[2020-02-06] MEDS ORDERED: ESTROGENS CONJ. CREAM 30 GM (PREMARIN) TUBE PV SCH ×2 (18:00→21:00)
--- NOTE | 2020-02-06 19:06 | NUR ---
Bedside report received from NAHOMY DEE, assume care of pt
[2020-02-06] MEDS: MELATONIN 3 MG TABLET PO PRN (21:46)
[2020-02-06] MEDS: SERTRALINE 50 MG (ZOLOFT) TABLET PO SCH (21:47)
[2020-02-06] MEDS: PRAMIPEXOLE 0.125 MG (MIRAPEX) TABLET PO SCH (21:47)
--- NOTE | 2020-02-06 21:47 | NUR ---
Pt refused Colace, Miralax, Senokot & Colestid, c/o RT knee pain, level 8/10 on numeric scale, Oxyir 5mg given & Voltaren gel
--- NOTE | 2020-02-06 23:30 | NUR ---
Resting quietly in bed, pain level 0/10 on CNPI SCALE
[2020-02-07 05:17] VITALS: BP 134/63
[2020-02-07 05:53] LABS: BASOPHILS % (AUTO) 1 % (0-10); EOSINOPHILS # (AUTO) 0.2 10^3/uL (0.0-0.3); EOSINOPHILS % (AUTO) 3 % (0-10); HEMATOCRIT 31 % (35-52); LYMPHOCYTES # (AUTO) 1.4 10^3/uL (1.0-4.0); LYMPHOCYTES % (AUTO) 24 % (12-44); MEAN CORPUSCULAR HEMOGLOBIN 29 pg (25-34); MEAN CORPUSCULAR HGB CONC 29 g/dL (32-36); MEAN CORPUSCULAR VOLUME 99 fL (80-99); MEAN PLATELET VOLUME 10.8 fL (9.0-12.2); MONOCYTES # (AUTO) 0.4 10^3/uL (0.0-1.0); MONOCYTES % (AUTO) 7 % (0-12); NEUTROPHILS # (AUTO) 3.8 10^3/uL (1.8-7.8); NEUTROPHILS % (AUTO) 64 % (42-75); PLATELET COUNT 257 10^3/uL (130-400); WHITE BLOOD COUNT 5.8 10^3/uL (4.3-11.0)
[2020-02-07 06:11] LABS: ALANINE AMINOTRANSFERASE 7 U/L (0-55); ALKALINE PHOSPHATASE 28 U/L (40-136); BILIRUBIN,TOTAL 0.3 MG/DL (0.1-1.0); BUN/CREATININE RATIO 12; CALCIUM 10.1 MG/DL (8.5-10.1); CARBON DIOXIDE 26 MMOL/L (21-32); CHLORIDE 110 MMOL/L (98-107); CREATININE SERUM 0.73 MG/DL (0.60-1.30); GFR ESTIMATED > 60; GLUCOSE 88 MG/DL (70-105); POTASSIUM 3.9 MMOL/L (3.6-5.0); SODIUM 143 MMOL/L (135-145); TOTAL PROTEIN 5.3 GM/DL (6.4-8.2)
--- NOTE | 2020-02-07 06:25 | NUR ---
Up to commode per sit to stand then to chair, c/o pain to rt knee, back & neck, pain level 9/10 on numeric scale, Oxyir 5mg given
--- NOTE | 2020-02-07 07:15 | NUR ---
RATES PAIN AT 6/10 IN NUMERIC SCALE
[2020-02-07] MEDS: ENOXAPARIN 40 MG/0.4 ML (LOVENOX) SYR SC SCH (08:53)
[2020-02-07] MEDS: METHIMAZOLE 5 MG PO SCH (08:53)
[2020-02-07] MEDS: VITAMIN D3 125 MCG (5,000 UNITS) CAPSULE PO SCH (08:53)
[2020-02-07] MEDS: LIDOCAINE 4% (SALONPAS) PATCH TP SCH ×2 (08:53→22:48)
[2020-02-07] MEDS: NIFEdipine ER 30 MG (PROCARDIA XL) TAB PO SCH (08:54)
[2020-02-07] MEDS: CYANOCOBALAMIN 1,000 MCG (VITAMIN B-12) TABLET PO SCH (08:54)
[2020-02-07] MEDS: LACTOBACILLUS ACIDOPHILUS (PROBIOTIC) CAPSULE PO SCH ×2 (08:54→22:26)
[2020-02-07] MEDS: SERTRALINE 100 MG (ZOLOFT) TAB PO SCH (08:54)
[2020-02-07] MEDS: ALPRAZolam 0.25 MG (XANAX) TAB PO SCH ×2 (08:54→22:26)
[2020-02-07] MEDS: ASCORBIC ACID (VIT C) 500 MG TABLET PO SCH (08:54)
[2020-02-07] MEDS: PANTOPRAZOLE 40 MG (PROTONIX) TAB PO SCH ×2 (08:54→22:28)
[2020-02-07] MEDS: GABAPENTIN 300 MG (NEURONTIN) CAP PO SCH ×3 (08:54→22:29)
[2020-02-07] MEDS: VALSARTAN 160 MG (DIOVAN) TABLET PO SCH (08:54)
[2020-02-07] MEDS: MELOXICAM 7.5 MG (MOBIC) TABLET PO SCH (08:54)
[2020-02-07] MEDS: DICLOFENAC 1% GEL 100 GM (VOLTAREN) TUBE TOP SCH ×4 (08:55→22:41)
[2020-02-07] MEDS: MICONAZOLE 2% POWDER (DESENEX AF) 90 GM TOP SCH ×2 (08:55→22:42)
[2020-02-07] MEDS: SILDENAFIL 20 MG (REVATIO) TAB NON-FORMULARY PO SCH ×2 (08:57→22:30)
[2020-02-07] MEDS: ACETAMINOPHEN 650 MG PO SCH ×3 (08:58→22:48)
[2020-02-07] MEDS: SENNA W/DOCUSATE (SENOKOT S) TABLET PO SCH ×2 (09:07→22:27)
[2020-02-07] MEDS: DOCUSATE SODIUM 100 MG (COLACE) CAP PO SCH ×2 (09:07→22:27)
[2020-02-07] MEDS: polyethylene glycoL POWDER 17 GM (MIRALAX) PACK PO SCH ×2 (09:07→22:25)
[2020-02-07] MEDS: COLESTIPOL 1 GM (COLESTID) TAB PO SCH (09:07)
--- NOTE | 2020-02-07 10:06 | Physical Therapy Daily Note ---
PT Daily Note-Current Subjective Pt. agrees to Rx. States she feels she has made a little progress. C/o fatigue and some SOB with exertion chika in standing trials. Agrees to PT OT co Rx. Pain Numeric Pain Scale: 5-Moderate Pain Location: Right Location Body Site: Knee Pain Description: Ache Comment: with wt bearing but improving Mental Status Patient Orientation: Normal For Age Attachments: Oxygen (1L), Other-See Comments (mask out of roomn) Transfers SCALE: Activities may be completed with or without assistive devices. 2-Ywcbzcinsp-vumkkyi completes the activity by him/herself with no assistance from a helper. 5-Set-up or Clean-up Assistance-helper sets up or cleans up; patient completes activity. [place] assists only prior to or following the activity. 4-Supervision or Touching Assistance-helper provides verbal cues and/or touching/steadying and/or contact guard assistance as patient completes activity. Assistance may be provided throughout the activity or intermittently. 3-Partial/Moderate Assistance-helper does LESS THAN HALF the effort. [place] lifts, holds or supports trunk or limbs, but provides less than half the effort. 2-Substantial/Maximal Assistance-helper does MORE THAN HALF the effort. [place] lifts or holds trunk or limbs and provides more than half the effort. 7-Xvcsvkcgz-upgrcs does ALL the effort. Patient does none of the effort to complete the activity. Or, the assistance of 2 or more helpers is required for the patient to complete the activity. If activity was not attempted, code reason: 7-Patient Refused. 9-Not Applicable-not attempted and the patient did not perform the activity before the current illness, exacerbation or injury. 10-Not Attempted due to Environmental Limitations-(lack of equipment, weather restraints, etc.). 88-Not Attempted due to Medical Conditions or Safety Concerns. Sit to Stand (QC): 2 Chair/Jji-zn-Moopw Xfer(QC): 2 Toilet Transfer (QC): 2 sit to stand lift used as pt. still requires max assist for sit to stand and has pain in R knee with wt bearing. sit to stands in //bars x 5 with max to mod assist of 1 , pt. standing only 10-12 seconds each trial, then c/o she is overcome with fatigue and is SOB, Weight Bearing Full Weight Bearing Full Weight Bearing Wheelchair Training Does the Pt Use a Wheelchair?: Yes Wheel 50 ft with 2 turns (QC): 3 Type of Wheelchair: Manual needs step by step instruction for turning and braking and efficient mobility. Exercises Seated Therapy Exercises: Ankle pumps, Sit to stand, Long arc quads, Hip flexion Seated Reps: 12 Treatments PT OT coRx for coordination of activities of sti bath, dressing, TRFs, w/c mobility, attempted to titrate off O2 with nurse ok but pt. desatted to 85% on room air and O2 was put back on at 1L with sats staying 90% and greater with activity Assessment Current Status: Good Progress gives full effort , some progress noted in sit to stand but still requires max assist PT Short Term Goals Short Term Goals Time Frame: Feb 04, 2020 Roll Left & Right: 4 Sit to lyin Lying to sitting on side of be: 3 Sit to stand: 3 Chair/gwi-nx-vtksq transfer: 3 Walk 10 feet: 3 PT Alf Goals Alf Goals PT Life Enrichment Director Goals Time Frame: Feb 18, 2020 Roll Left & Right (QC): 6 Sit to Lying (QC): 4 Lying-Sitting on Side/Bed(QC): 4 Sit to Stand (QC): 3 ([place]) Chair/Bit-ea-Roqug Xfer(QC): 3 ([place]) Toilet Transfer (QC): 3 ([place]) Car Transfer (QC): 3 ([place]) Does the Patient Walk: No and Walking Goal IS indicated Walk 10 feet (QC): 3 Walk 50ft with 2 Turns (QC): 3 Walk 150 ft (QC): 88 Walking 10ft on Uneven Surface: 88 1 Step (curb) (QC): 88 4 Steps (QC): 88 12 Steps (QC): 88 Picking up an Object (QC): 88 Wheel 50 feet with 2 turns (QC: 6 Wheel 150 feet: 6 PT Plan Treatment/Plan Treatment Plan: Continue Plan of Care Treatment Plan: Bed Mobility, Education, Functional Activity Renny, Functional Strength, Group Therapy, Gait, Safety, Therapeutic Exercise, Transfers Treatment Duration: Feb 18, 2020 Frequency: At least 5 of 7 days/Wk (IRF) Estimated Hrs Per Day: 1.5 hours per day Patient and/or Family Agrees t: Yes Safety Risks/Education Patient Education: Transfer Techniques, Correct Positioning, W/C Management, Disease Process, Safety Issues Teaching Recipient: Patient Teaching Methods: Demonstration, Discussion Response to Teaching: Verbalize Understanding, Return Demonstration, Reinforcement Needed Time/GCodes Time In: 900 Time Out: 1000 Total Billed Treatment Time: 60 Total Billed Treatment 1,WC20m,EX10m,FA30m (co Rx w OPT 60m) KENZIE MORE GANTRY RIGGER Feb 07, 2020 10:06
--- NOTE | 2020-02-07 10:26 | PM&R Progress Note ---
Subjective HPI/CC On Admission Date Seen by Provider: Feb 07, 2020 Time Seen by Provider: 10:30 Subjective/Events-last exam 02/07/20: Room air maintained O2 sat but with the minimal exertion she goes down into the 80 percent Discontinue Colesturiel Overall feels like she is doing much better Able to use the sit to stand pretty well 02/06/20: Has multiple little complaints DC PICC since it simply did not function properly DC Venofer O2 on 1L/min 02/05/20: Tearful at times Right knee pain is terrible at times Mobic will be restarted along with other home meds that have now been reviewed 02/04/20: Using sit to stand very well Heels are red so managing that O2 on/off 02/03/20: Oxycodone and Xanax ordered APAP Skateboard Standing with assist Memory loss noted Less edema right knee BM 02/02: Pt doing pretty well Participating in therapy Very motivated to improve Maintained on O2 2 liters 02/01/20: Right knee pain continues but considering the risk for complications from steroid injection after Covid, she will be managing Overall doing pretty well on 2 L of Oxygen Will replace Picc line since it was placed in the arm where she has had her previous mastectomy 01/31/20: Dr. Dent graciously agreed to see her for right knee pain and will initiate an injection Hgb 9.1 so midline will be placed with iron infusions 2 L of oxygen maintained After rounds Dr Dent updated me on the fact that no injection initiated due to high risk following COVID 01/30/20: Right knee pain continues Will reach out to Dr Dent tomorrow Tapazole restarted Midline needed for iron infusions Severe right knee pain 11/26 today so adjusted her pain meds and xray noted severe OA Dr Scott usually gives her a right knee injections every 3 months and she is overdue I will try to have ortho give pain injection Friday Tapazole not on her list and she has Graves disease she states O2 at 80% so will maintain 2L/min O2 Checking iron level since hgb 9.1 Adding TSH FT4 to labs BM today loose Review of Systems General: Fatigue, Malaise Pulmonary: Dyspnea Neurological: Weakness, Incoordination Objective Exam Vital Signs Vital Signs Date Time Temp Pulse Resp B/P (MAP) Pulse Ox O2 Delivery O2 Flow Rate FiO2 02/08/20 06:00 36.6 81 18 140/62 (88) 94 Nasal Cannula 1.00 Capillary Refill : Less Than 3 Seconds General Appearance: No Apparent Distress, WD/WN, Chronically ill HEENT: PERRL/EOMI, Normal ENT Inspection, Pharynx Normal Neck: Full Range of Motion, Normal Inspection, Non Tender, Supple, Carotid Bruit Respiratory: Chest Non Tender, Lungs Clear, No Accessory Muscle Use, No Respiratory Distress, Decreased Breath Sounds Cardiovascular: Regular Rate, Rhythm, No Edema, No Gallop, No JVD, No Murmur, Normal Peripheral Pulses Gastrointestinal: Normal Bowel Sounds, No Organomegaly, No Pulsatile Mass, Non Tender, Soft Back: Normal Inspection, No CVA Tenderness, No Vertebral Tenderness Extremity: Normal Capillary Refill, Normal Inspection, Normal Range of Motion, Non Tender, No Calf Tenderness, No Pedal Edema Neurologic/Psychiatric: Alert, Oriented x3, Normal Mood/Affect, tumbler machine operator II-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 FIM Transfers Therapy Code Descriptions/Definitions Functional [place] Measure: 0=Not Assessed/NA 4=Minimal Assistance 1=Total Assistance 5=Supervision or Setup 2=Maximal Assistance 6=Modified [place] 3=Moderate Assistance 7=Complete IndependenceSCALE: Activities may be completed with or without assistive devices. 8-Xlqrokndbh-zakoezp completes the activity by him/herself with no assistance from a helper. 5-Set-up or Clean-up Assistance-helper sets up or cleans up; patient completes activity. [place] assists only prior to or following the activity. 4-Supervision or Touching Assistance-helper provides verbal cues and/or touching/steadying and/or contact guard assistance as patient completes activity. Assistance may be provided throughout the activity or intermittently. 3-Partial/Moderate Assistance-helper does LESS THAN HALF the effort. [place] lifts, holds or supports trunk or limbs, but provides less than half the effort. 2-Substantial/Maximal Assistance-helper does MORE THAN HALF the effort. [place] lifts or holds trunk or limbs and provides more than half the effort. 3-Kqugraesz-iycseo does ALL the effort. Patient does none of the effort to complete the activity. Or, the assistance of 2 or more helpers is required for the patient to complete the activity. If activity was not attempted, code reason: 7-Patient Refused. 9-Not Applicable-not attempted and the patient did not perform the activity before the current illness, exacerbation or injury. 10-Not Attempted due to Environmental Limitations-(lack of equipment, weather restraints, etc.). 88-Not Attempted due to Medical Conditions or Safety Concerns. Roll Left to Right (QC): 3 Sit to Lying (QC): 3 Sit to Stand (QC): 2 Chair/Lwt-sh-Midab Xfer(QC): 2 Car Transfer (QC): 1 Gait Training Does the Patient Walk?: No and Walking Goal IS indicated Walk 10 feet (QC): 88 Walk 50 ft with 2 Turns(QC): 88 Walk 150 ft (QC): 88 Walking 10ft/uneven surface-QC: 88 Wheelchair Training Does the Pt Use a Wheelchair?: Yes Distance: 50'x2 Wheel 50 ft with 2 turns (QC): 3 Wheel 150 ft (QC): 4 Type of Wheelchair: Manual Stair Training 1 Step (curb) (QC): 88 4 Steps (QC): 88 12 Steps (QC): 88 Balance Picking up an Object (QC): 88 ADL-Treatment Eating (QC): 6 (Pt reports independent with lunch.) Oral Hygiene (QC): 5 Shower/Bathe Self (QC): 3 (Mod A. Pt completed sponge bath at bed level, able to wash BUEs, chest/abdomen. OT assisted pt with placing and holding LEs in figure 4 method, pt able to partially wash LEs, assist with thoroguhness) Upper Body Dressing (QC): 3 (Pt able to thread UEs and head, Min A with managing down over abdomen) Lower Body Dressing (QC): 3 (Assist to thread RLE into pants/brief, OT held LLE in figure 4 position, pt able to thread RLE and complete pant hike at bed level.) On/Off Footwear (QC): 4 (SBA, pt able to don slip on shoes at EOB) Toileting Hygiene (QC): 1 (x2 assist, 1 to assist with stand and 1 to assit with clothing management and hygiene) Toilet Transfer (QC): 1 (Max A stand pivot transfer from EOB to BSC. 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 Grave's disease Plan: IRF protocol Wean O2 Pain meds BM regimen 01/29/20: Restart Tapazole 5mg daily Knee injection by ortho will be pursued tomorrow O2 01/30/20: Right knee injection will be requested from Dr Dent Pain meds Tapazole O2 01/31/20: Knee injection not performed due to COVID related risk Monitor O2 Midline and Venofer 02/01/20: Monitor closely O2 wean IRF protocol 02/01/30: Monitor O2 Aggressive therapy 02/03/20: Stood with assist and parallel bars today Improved status IV Venofer after PICC changed 02/04/20: Monitor O2 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
--- NOTE | 2020-02-07 10:41 | Occupational Ther Daily Note ---
OT Current Status-Daily Note Subjective Pt alert, sitting in recliner. Pt agrees to therapy. No c/o pain initially then at end of treatment pt requested pain pills, reported to nrsg. Mental Status/Objective Patient Orientation: Person, Place, Time, Situation Attachments: Oxygen (1L) ADL-Treatment PT/OT co-treat ([id number]), skills of 2 clinicians required for coordination and skilled instruction of bathing, functional transfers, w/c mobility and sit to stands. PT focusing on transfers, sit to stand, w/c mobility and LE s trengthening. OT focusing on ADLs, B UE placement during transfers, w/c mobility and sit to stand. Nrsg aware of attempting to titrate O2, with exertion pt O2 levels dropped to 85%, applied O2 and pt able to maintain above 90%. After set up, pt able to complete upper body bathing. Assist while using sit to stand lift to cleanse rosibel area and buttocks. Pt required assist to cl eanse lower body and feet. Dependent with transfers using sit to stand lift. Pt able to manipulate w/c slowly, fatigues and SOA quickly requiring multiple recovery breaks. At end of therapy, pt requested to use BSC. Sit to stand lift used to transfer onto BSC then to complete clothing manipulation and hygiene. Mod A for EOB to supine. Call light/phone in reach. All needs met in room. Therapy Code Descriptions/Definitions Functional [place] Measure: 0=Not Assessed/NA 4=Minimal Assistance 1=Total Assistance 5=Supervision or Setup 2=Maximal Assistance 6=Modified [place] 3=Moderate Assistance 7=Complete IndependenceSCALE: Activities may be completed with or without assistive devices. 1-Vptjmjwgre-ygkhjfa completes the activity by him/herself with no assistance from a helper. 5-Set-up or Clean-up Assistance-helper sets up or cleans up; patient completes activity. [place] assists only prior to or following the activity. 4-Supervision or Touching Assistance-helper provides verbal cues and/or touching/steadying and/or contact guard assistance as patient completes activity. Assistance may be provided throughout the activity or intermittently. 3-Partial/Moderate Assistance-helper does LESS THAN HALF the effort. [place] lifts, holds or supports trunk or limbs, but provides less than half the effort. 2-Substantial/Maximal Assistance-helper does MORE THAN HALF the effort. [place] lifts or holds trunk or limbs and provides more than half the effort. 9-Tevhyqwuo-tbmyzj does ALL the effort. Patient does none of the effort to co mplete the activity. Or, the assistance of 2 or more helpers is required for the patient to complete the activity. If activity was not attempted, code reason: 7-Patient Refused. 9-Not Applicable-not attempted and the patient did not perform the activity before the current illness, exacerbation or injury. 10-Not Attempted due to Environmental Limitations-(lack of equipment, weather restraints, etc.). 88-Not Attempted due to Medical Conditions or Safety Concerns. Oral Hygiene (QC): 6 (Completed sitting at sink in w/c.) Bathing Location: L Arm, R Arm, Chest, Abdomen Shower/Bathe Self (QC): 1 Upper Body Dressing (QC): 3 Lower Body Dressing (QC): 1 On/Off Footwear: 2 Toileting Hygiene (QC): 1 Toilet Transfer (QC): 1 Other Treatment Assist x2 for sit to stand at parallel bars (see PT notes for progress). OT Short Term Goals Short Term Goals Time Frame: Feb 09, 2020 Toileting hygiene: 3 Lower body dressin Putting on/taking off footwear: 3 OT Usp Goals Morning Babysitter Goals Time Frame: Feb 18, 2020 Eating (QC): 6 Oral Hygiene (QC): 6 Toileting Hygiene (QC): 6 Shower/Bathe Self (QC): 6 Upper Body Dressing (QC): 6 Lower Body Dressing (QC): 6 On/Off Footwear (QC): 6 Additional Goals: 1-Demonstrate ADL Tasks, 2-Verbalize Understanding, 3-Impro veStrength/Renny 1=Demonstrate adherence to instructed precautions during ADL tasks. 2=Patient will verbalize/demonstrate understanding of assistive devices/modifications for ADL. 3=Patient will improve strength/tolerance for activity to enable patient to perform ADL's. OT Education/Plan Problem List/Assessment Assessment: Decreased Activ Tolerance, Decreased UE Strength, Dependent Transfers, Impaired Bed Mobility, Impaired Coordination, Impaired Funct Balance, Impaired I ADL's, Impaired Self-Care Skills, Restricted Funct UE ROM Discharge Recommendations Plan/Recommendations: Continue POC Treatment Plan/Plan of Care Patient would benefit from OT for education, treatment and training to promote independence in ADL's, mobility, safety and/or upper extremity function for ADL's. Plan of Care: ADL Retraining, Functional Mobility, Group Exercise/Act as Ind, UE Funct Exercise/Act Treatment Duration: Feb 18, 2020 Frequency: At least 5 of 7 days/Wk (IRF) Estimated Hrs Per Day: 1.5 hours per day Agreement: Yes Rehab Potential: Fair Time/GCodes Start Time: 09:00 Stop Time: 10:30 Total Time Billed (hr/min): 90 Billed Treatment Time 1 visit-ADL 3 (45 min) FA 3 (45 min) cotreat with PT ([id number]), individual ([id number]) DENI GRISSOM Feb 07, 2020 10:40
--- NOTE | 2020-02-07 14:05 | Speech Therapy Daily Note ---
Speech Daily Progress Note Subjective Date Seen by Provider: Feb 07, 2020 Time Seen by Provider: 00:30 Patient was resting in her recliner, ready for therapy when I entered her room. Objective Patient completed written memory steps for safe transfers and wheelchair mobility with 60% accuracy given moderate cues. Assessment Assessment Current Status: Fair Progress Treatment Plan Continue Plan of Care Speech Short Term Goals Short Term Goals Short Term Goals 1) Patient will follow/recall multi step directions for wheelchair mobility without cues at 90% or greater. 2) Patient will recall sequencing for daily activities without cues at 90% or greater. Speech Account General Manager Goals [facility] Goals Patient will demonstrate safety awareness with all daily activities and processes. Speech-Plan Patient/Family Goals Patient/Family Goals: Patient plans on returning home where she lives with her . Treatment Plan Speech Therapy Treatment Plan: Continue Plan of Care Treatment Duration: Jan 31, 2020 Frequency: 4 times per week (Patient will receive ST 4-5x per week) Estimated Hrs Per Day: .5 hour per day Rehab Potential: Fair Barriers to Learning: Patient's STM for safety and mobility Pt/Family Agrees to Plan: Yes Safety Risks/Education Teaching Recipient: Patient Teaching Methods: Demonstration, Discussion Response to Teaching: Verbalize Understanding, Return Demonstration Education Topics Provided: Safety within her room, transfers Time Speech Therapy Time In: 08:30 Speech Therapy Time Out: 09:00 Total Billed Time: 30 Billed Treatment Time 1MILLIE BETHAN[address] ST Feb 07, 2020 14:05
--- NOTE | 2020-02-07 14:34 | Physical Therapy Daily Note ---
PT Daily Note-Current Subjective Patient is very agreeable to participate with therapy. Mental Status Patient Orientation: Normal For Age Attachments: Oxygen Transfers SCALE: Activities may be completed with or without assistive devices. 8-Efnznshfuu-irpmubv completes the activity by him/herself with no assistance from a helper. 5-Set-up or Clean-up Assistance-helper sets up or cleans up; patient completes activity. [place] assists only prior to or following the activity. 4-Supervision or Touching Assistance-helper provides verbal cues and/or touching/steadying and/or contact guard assistance as patient completes activity. Assistance may be provided throughout the activity or intermittently. 3-Partial/Moderate Assistance-helper does LESS THAN HALF the effort. [place] lifts, holds or supports trunk or limbs, but provides less than half the effort. 2-Substantial/Maximal Assistance-helper does MORE THAN HALF the effort. [place] lifts or holds trunk or limbs and provides more than half the effort. 6-Oqslyaoxk-jboujs does ALL the effort. Patient does none of the effort to complete the activity. Or, the assistance of 2 or more helpers is required for the patient to complete the activity. If activity was not attempted, code reason: 7-Patient Refused. 9-Not Applicable-not attempted and the patient did not perform the activity before the current illness, exacerbation or injury. 10-Not Attempted due to Environmental Limitations-(lack of equipment, weather restraints, etc.). 88-Not Attempted due to Medical Conditions or Safety Concerns. Weight Bearing Full Weight Bearing Full Weight Bearing Exercises Supine Ex: Bridging, Quad Set, Glut sets, Heel Slides, Knee to chest Supine Reps: 12 Assessment Patient tolerated treatment and remains in bed with needs met. Increase activity as tolerated by patient. PT Short Term Goals Short Term Goals Time Frame: Feb 04, 2020 Roll Left & Right: 4 Sit to lyin Lying to sitting on side of be: 3 Sit to stand: 3 Chair/gbk-qu-qnnff transfer: 3 Walk 10 feet: 3 PT Senior Care Goals Senior Care Goals PT Food And Beverage Assistant Manager Goals Time Frame: Feb 18, 2020 Roll Left & Right (QC): 6 Sit to Lying (QC): 4 Lying-Sitting on Side/Bed(QC): 4 Sit to Stand (QC): 3 ([place]) Chair/Imy-kx-Epseo Xfer(QC): 3 ([place]) Toilet Transfer (QC): 3 ([place]) Car Transfer (QC): 3 ([place]) Does the Patient Walk: No and Walking Goal IS indicated Walk 10 feet (QC): 3 Walk 50ft with 2 Turns (QC): 3 Walk 150 ft (QC): 88 Walking 10ft on Uneven Surface: 88 1 Step (curb) (QC): 88 4 Steps (QC): 88 12 Steps (QC): 88 Picking up an Object (QC): 88 Wheel 50 feet with 2 turns (QC: 6 Wheel 150 feet: 6 PT Plan Treatment/Plan Treatment Plan: Continue Plan of Care Treatment Plan: Bed Mobility, Education, Functional Activity Renny, Functional Strength, Group Therapy, Gait, Safety, Therapeutic Exercise, Transfers Treatment Duration: Feb 18, 2020 Frequency: At least 5 of 7 days/Wk (IRF) Estimated Hrs Per Day: 1.5 hours per day Patient and/or Family Agrees t: Yes Time/GCodes Time In: 1415 Time Out: 1430 Total Billed Treatment Time: 15 Total Billed Treatment 1 visit EX 15 min CHIARA LOPEZ PT Feb 07, 2020 14:34
--- NOTE | 2020-02-07 15:57 | NUR ---
"RD ASSESSMENT PMHx: pneumonia; COVID; hypercholesterolemia; HTN; GERD; hypothyroidism; CA(breast) PT INTERACTION: Pt was awake and pleasant during nutrition follow-up. Pt states she has been eating well since last assessment. Note avg PO intake 69% x4d, per chart review. Pt states some issues with constipation since last assessment. Note last BM was 02/06, and pt currently on bowel regimen of colace BID, senna BID, and miralax BID, per chart review. ABNORMAL NUTRITION-RELATED LAB VALUES LOW: alkpho 28; Pro 5.3; alb 3.0; HIGH: Cl 110; Est. kcal needs: 6193-2815 kcal | 15-20 kcal/kg Est. Pro needs: 78-94 g Pro | 1.0-1.2 g Pro/kg PES STATEMENT: Inadequate oral intake (NI-2.1) related to constipation, as evidenced by pt interview, and avg PO intake 69% x4d. INTERVENTION: Continue with current diet order of Regular diet. Pt may benefit from nutrition supplementation if PO intake declines. Will continue to follow and reassess as pt needs, intake, and status change. Patricia LIMA, MS RD LD [phone] cell"
[2020-02-07 17:33] VITALS: BP 129/70
[2020-02-07] MEDS: SERTRALINE 50 MG (ZOLOFT) TABLET PO SCH (22:28)
[2020-02-07] MEDS: MELATONIN 3 MG TABLET PO PRN (22:29)
[2020-02-07] MEDS: PRAMIPEXOLE 0.125 MG (MIRAPEX) TABLET PO SCH (22:30)
[2020-02-08 06:00] VITALS: BP 140/62
[2020-02-08] MEDS: ENOXAPARIN 40 MG/0.4 ML (LOVENOX) SYR SC SCH (07:42)
[2020-02-08] MEDS: NIFEdipine ER 30 MG (PROCARDIA XL) TAB PO SCH (07:44)
[2020-02-08] MEDS: SENNA W/DOCUSATE (SENOKOT S) TABLET PO SCH ×2 (07:44→21:32)
[2020-02-08] MEDS: MELOXICAM 7.5 MG (MOBIC) TABLET PO SCH (07:44)
[2020-02-08] MEDS: LACTOBACILLUS ACIDOPHILUS (PROBIOTIC) CAPSULE PO SCH ×2 (07:44→21:26)
[2020-02-08] MEDS: ASCORBIC ACID (VIT C) 500 MG TABLET PO SCH (07:44)
[2020-02-08] MEDS: METHIMAZOLE 5 MG PO SCH (07:45)
[2020-02-08] MEDS: DOCUSATE SODIUM 100 MG (COLACE) CAP PO SCH ×2 (07:45→21:31)
[2020-02-08] MEDS: VALSARTAN 160 MG (DIOVAN) TABLET PO SCH (07:45)
[2020-02-08] MEDS: ALPRAZolam 0.25 MG (XANAX) TAB PO SCH ×2 (07:45→21:26)
[2020-02-08] MEDS: PANTOPRAZOLE 40 MG (PROTONIX) TAB PO SCH ×2 (07:45→21:26)
[2020-02-08] MEDS: CYANOCOBALAMIN 1,000 MCG (VITAMIN B-12) TABLET PO SCH (07:45)
[2020-02-08] MEDS: GABAPENTIN 300 MG (NEURONTIN) CAP PO SCH ×3 (07:46→21:26)
[2020-02-08] MEDS: SERTRALINE 100 MG (ZOLOFT) TAB PO SCH (07:46)
[2020-02-08] MEDS: VITAMIN D3 125 MCG (5,000 UNITS) CAPSULE PO SCH (07:46)
[2020-02-08] MEDS: ACETAMINOPHEN 650 MG PO SCH ×3 (07:47→21:28)
[2020-02-08] MEDS: DICLOFENAC 1% GEL 100 GM (VOLTAREN) TUBE TOP SCH ×4 (07:58→21:40)
[2020-02-08] MEDS: MICONAZOLE 2% POWDER (DESENEX AF) 90 GM TOP SCH ×2 (07:58→21:41)
[2020-02-08] MEDS: SILDENAFIL 20 MG (REVATIO) TAB NON-FORMULARY PO SCH ×2 (08:01→21:28)
[2020-02-08] MEDS: polyethylene glycoL POWDER 17 GM (MIRALAX) PACK PO SCH ×2 (08:36→21:31)
[2020-02-08] MEDS: LIDOCAINE 4% (SALONPAS) PATCH TP SCH ×2 (09:15→21:41)
--- NOTE | 2020-02-08 10:17 | PM&R Progress Note ---
Subjective HPI/CC On Admission Date Seen by Provider: Feb 08, 2020 Time Seen by Provider: 10:30 Subjective/Events-last exam 02/08/20: Using sit to stand and doing very well Bowels moved today A lot of pain issues Requires a lot of care 02/07/20: Room air maintained O2 sat but with the minimal exertion she goes down into the 80 percent Discontinue Colestid Overall feels like she is doing much better Able to use the sit to stand pretty well 02/06/20: Has multiple little complaints DC PICC since it simply did not function properly DC Venofer O2 on 1L/min 02/05/20: Tearful at times Right knee pain is terrible at times Mobic will be restarted along with other home meds that have now been reviewed 02/04/20: Using sit to stand very well Heels are red so managing that O2 on/off 02/03/20: Oxycodone and Xanax ordered APAP Skateboard Standing with assist Memory loss noted Less edema right knee BM 02/02: Pt doing pretty well Participating in therapy Very motivated to improve Maintained on O2 2 liters 02/01/20: Right knee pain continues but considering the risk for complications from steroid injection after Covid, she will be managing Overall doing pretty well on 2 L of Oxygen Will replace Picc line since it was placed in the arm where she has had her previous mastectomy 01/31/20: Dr. Dent graciously agreed to see her for right knee pain and will initiate an injection Hgb 9.1 so midline will be placed with iron infusions 2 L of oxygen maintained After rounds Dr Dent updated me on the fact that no injection initiated due to high risk following COVID 01/30/20: Right knee pain continues Will reach out to Dr Dent tomorrow Tapazole restarted Midline needed for iron infusions Severe right knee pain 11/26 today so adjusted her pain meds and xray noted severe OA Dr Scott usually gives her a right knee injections every 3 months and she is overdue I will try to have ortho give pain injection Friday Tapazole not on her list and she has Graves disease she states O2 at 80% so will maintain 2L/min O2 Checking iron level since hgb 9.1 Adding TSH FT4 to labs BM today loose Review of Systems General: Fatigue, Malaise Neurological: Weakness, Incoordination Objective Exam Vital Signs Vital Signs Date Time Temp Pulse Resp B/P (MAP) Pulse Ox O2 Delivery O2 Flow Rate FiO2 02/09/20 05:59 36.6 82 16 154/71 (98) 92 Nasal Cannula 2.00 Capillary Refill : Less Than 3 Seconds General Appearance: No Apparent Distress, WD/WN, Chronically ill HEENT: PERRL/EOMI, Normal ENT Inspection, Pharynx Normal Neck: Full Range of Motion, Normal Inspection, Non Tender, Supple, Carotid Bruit Respiratory: Chest Non Tender, Lungs Clear, No Accessory Muscle Use, No Respiratory Distress, Decreased Breath Sounds Cardiovascular: Regular Rate, Rhythm, No Edema, No Gallop, No JVD, No Murmur, Normal Peripheral Pulses Gastrointestinal: Normal Bowel Sounds, No Organomegaly, No Pulsatile Mass, Non Tender, Soft Back: Normal Inspection, No CVA Tenderness, No Vertebral Tenderness Extremity: Normal Capillary Refill, Normal Inspection, Normal Range of Motion, Non Tender, No Calf Tenderness, No Pedal Edema Neurologic/Psychiatric: Alert, Oriented x3, Normal Mood/Affect, assistant II-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 FIM Transfers Therapy Code Descriptions/Definitions Functional [place] Measure: 0=Not Assessed/NA 4=Minimal Assistance 1=Total Assistance 5=Supervision or Setup 2=Maximal Assistance 6=Modified [place] 3=Moderate Assistance 7=Complete IndependenceSCALE: Activities may be completed with or without assistive devices. 3-Ytgwvduaro-ujwmutj completes the activity by him/herself with no assistance from a helper. 5-Set-up or Clean-up Assistance-helper sets up or cleans up; patient completes activity. [place] assists only prior to or following the activity. 4-Supervision or Touching Assistance-helper provides verbal cues and/or touching/steadying and/or contact guard assistance as patient completes activity. Assistance may be provided throughout the activity or intermittently. 3-Partial/Moderate Assistance-helper does LESS THAN HALF the effort. [place] lifts, holds or supports trunk or limbs, but provides less than half the effort. 2-Substantial/Maximal Assistance-helper does MORE THAN HALF the effort. [place] lifts or holds trunk or limbs and provides more than half the effort. 5-Zpfyvntum-llklqj does ALL the effort. Patient does none of the effort to complete the activity. Or, the assistance of 2 or more helpers is required for the patient to complete the activity. If activity was not attempted, code reason: 7-Patient Refused. 9-Not Applicable-not attempted and the patient did not perform the activity before the current illness, exacerbation or injury. 10-Not Attempted due to Environmental Limitations-(lack of equipment, weather restraints, etc.). 88-Not Attempted due to Medical Conditions or Safety Concerns. Roll Left to Right (QC): 3 Sit to Lying (QC): 3 Sit to Stand (QC): 2 Chair/Iea-sj-Adjfg Xfer(QC): 2 Car Transfer (QC): 1 Gait Training Does the Patient Walk?: No and Walking Goal IS indicated Walk 10 feet (QC): 88 Walk 50 ft with 2 Turns(QC): 88 Walk 150 ft (QC): 88 Walking 10ft/uneven surface-QC: 88 Wheelchair Training Does the Pt Use a Wheelchair?: Yes Distance: 50'x2 Wheel 50 ft with 2 turns (QC): 3 Wheel 150 ft (QC): 4 Type of Wheelchair: Manual Stair Training 1 Step (curb) (QC): 88 4 Steps (QC): 88 12 Steps (QC): 88 Balance Picking up an Object (QC): 88 ADL-Treatment Eating (QC): 6 (Pt reports independent with lunch.) Oral Hygiene (QC): 6 Bathing Location: L Arm, R Arm, Chest, Abdomen Shower/Bathe Self (QC): 1 Upper Body Dressing (QC): 3 Lower Body Dressing (QC): 1 On/Off Footwear (QC): 2 Toileting Hygiene (QC): 1 Toilet Transfer (QC): 1 Assessment/Plan Assessment and Plan Assess & Plan/Chief Complaint Assessment: Critical illness debility from COVID-19 dx 12/11/19 OA h/o breast cancer Allergic rhinitis HTN GERD Depression Lung nodules [facility] 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 Grave's disease Plan: IRF protocol Wean O2 Pain meds BM regimen 01/29/20: Restart Tapazole 5mg daily Knee injection by ortho will be pursued tomorrow O2 01/30/20: Right knee injection will be requested from Dr Dent Pain meds Tapazole O2 01/31/20: Knee injection not performed due to COVID related risk Monitor O2 Midline and Venofer 02/01/20: Monitor closely O2 wean IRF protocol 02/01/30: Monitor O2 Aggressive therapy 02/03/20: Stood with assist and parallel bars today Improved status IV Venofer after PICC changed 02/04/20: Monitor O2 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
--- NOTE | 2020-02-08 10:34 | Occupational Ther Daily Note ---
OT Current Status-Daily Note Subjective Pt alert, sitting in recliner. Pt agrees to therapy. No c/o pain at this time. Mental Status/Objective Patient Orientation: Person, Place, Time, Situation ADL-Treatment Pt has O2 off at this time. During therapy session, pt's O2 levels would go into the high 80's with exertion then quickly go back to mid 90's with deep breathing techniques. PT/OT co-treat ([id number]), skills of 2 clinicians required for coordination and skilled instruction of bathing, functional transfers, w/c mobility and sit to stands. PT focusing on transfers, sit to stand, w/c mobility and LE strengthening. OT focusing on ADLs, B UE placement during transfers, w/c mobility and sit to stand. Pt agrees to showering. Using sit to stand lift for all transfers. Using rolling shower chair with cutout to complete shower. Pt able to reach all areas, used long handle sponge for lower legs/feet, except assistance required for rosibel area and buttocks. Min A for upper body dressing, assist to pull down in back. Dependent for lower body dr essing, assist to thread clothing over feet and using sit to stand lift to hike pants over hips. Max A for footwear. Pt sat in front of sink to complete oral care independently. Dependent for transfer to BSC and complete toileting using sit to stand lift. Mod A x2 for EOB to supine. After session, pt lying in bed with call light/phone in reach. All needs met. Therapy Code Descriptions/Definitions Functional [place] Measure: 0=Not Assessed/NA 4=Minimal Assistance 1=Total Assistance 5=Supervision or Setup 2=Maximal Assistance 6=Modified [place] 3=Moderate Assistance 7=Complete IndependenceSCALE: Activities may be completed with or without assistive devices. 4-Llyvlxrjrp-lrrinbe completes the activity by him/herself with no assistance from a helper. 5-Set-up or Clean-up Assistance-helper sets up or cleans up; patient completes activity. [place] assists only prior to or following the activity. 4-Supervision or Touching Assistance-helper provides verbal cues and/or touching/steadying and/or contact guard assistance as patient completes activity. Assistance may be provided throughout the activity or intermittently. 3-Partial/Moderate Assistance-helper does LESS THAN HALF the effort. [place] lifts, holds or supports trunk or limbs, but provides less than half the effort. 2-Substantial/Maximal Assistance-helper does MORE THAN HALF the effort. [place] lifts or holds trunk or limbs and provides more than half the effort. 8-Xongimrhp-aznchl does ALL the effort. Patient does none of the effort to complete the activity. Or, the assistance of 2 or more helpers is required for the patient to complete the activity. If activity was not attempted, code reason: 7-Patient Refused. 9-Not Applicable-not attempted and the patient did not perform the activity before the current illness, exacerbation or injury. 10-Not Attempted due to Environmental Limitations-(lack of equipment, weather restraints, etc.). 88-Not Attempted due to Medical Conditions or Safety Concerns. Eating (QC): 6 (Using clinical judgement, pt able to complete independently.) Oral Hygiene (QC): 6 Bathing Location: L Arm, R Arm, L Upper Leg, R Upper Leg, L Lower Leg (including foot), R Lower Leg (including foot), Chest, Abdomen Shower/Bathe Self (QC): 3 Upper Body Dressing (QC): 3 Lower Body Dressing (QC): 1 On/Off Footwear: 2 Toileting Hygiene (QC): 1 Toilet Transfer (QC): 1 Other Treatment Pt is demonstrating increased strength and ability to maintain standing position in parallel bars. Assist x2 is still needed for the sit to stand. See PT notes for progress with standing. OT Short Term Goals Short Term Goals Time Frame: Feb 09, 2020 Toileting hygiene: 3 Lower body dressin Putting on/taking off footwear: 3 OT Client Advisor Goals Long-Term Goals Time Frame: Feb 18, 2020 Eating (QC): 6 Oral Hygiene (QC): 6 Toileting Hygiene (QC): 6 Shower/Bathe Self (QC): 6 Upper Body Dressing (QC): 6 Lower Body Dressing (QC): 6 On/Off Footwear (QC): 6 Additional Goals: 1-Demonstrate ADL Tasks, 2-Verbalize Understanding, 3-ImproveStrength/Renny 1=Demonstrate adherence to instructed precautions during ADL tasks. 2=Patient will verbalize/demonstrate understanding of assistive devices/modifications for ADL. 3=Patient will improve strength/tolerance for activity to enable patient to perform ADL's. OT Education/Plan Problem List/Assessment Assessment: Decreased Activ Tolerance, Decreased UE Strength, Dependent Transfers, Impaired Bed Mobility, Impaired Coordination, Impaired Funct Balance, Impaired I ADL's, Impaired Self-Care Skills, Restricted Funct UE ROM Discharge Recommendations Plan/Recommendations: Continue POC Equpiment Recommendations-D/C: Bedside Commode, Hip Kit Treatment Plan/Plan of Care Patient would benefit from OT for education, treatment and training to promote independence in ADL's, mobility, safety and/or upper extremity function for ADL's. Plan of Care: ADL Retraining, Functional Mobility, Group Exercise/Act as Ind, UE Funct Exercise/Act Treatment Duration: Feb 18, 2020 Frequency: At least 5 of 7 days/Wk (IRF) Estimated Hrs Per Day: 1.5 hours per day Agreement: Yes Rehab Potential: Fair Time/GCodes Start Time: 09:00 Stop Time: 10:15 Total Time Billed (hr/min): 75 Billed Treatment Time 1 visit-ADL 3 (45 min) FA 2 (30 min) Co-treat with PT [id number], individual [id number] DENI GRISSOM Feb 08, 2020 10:34
--- NOTE | 2020-02-08 11:48 | Speech Therapy Daily Note ---
Speech Daily Progress Note Subjective Date Seen by Provider: Feb 08, 2020 Time Seen by Provider: 00:30 Patient was sitting up in her recliner, states she is sleepy today. Objective Patient recalled safety and steps for wheelchair mobility and transfers with sitting to standing at 75% with 20% verbal cues. Assessment Assessment Current Status: Good Progress Treatment Plan Continue Plan of Care Speech Short Term Goals Short Term Goals Short Term Goals 1) Patient will follow/recall multi step directions for wheelchair mobility without cues at 90% or greater. 2) Patient will recall sequencing for daily activities without cues at 90% or greater. Speech Soap Inspector Goals Correction Goals Patient will demonstrate safety awareness with all daily activities and processes. Speech-Plan Patient/Family Goals Patient/Family Goals: Patient plans on returning to her home where she lives with her . Treatment Plan Speech Therapy Treatment Plan: Continue Plan of Care Treatment Duration: Jan 31, 2020 Frequency: 4 times per week (Patient will receive ST 4-5x per week) Estimated Hrs Per Day: .5 hour per day Rehab Potential: Fair Barriers to Learning: Patient's recent lengthy illness, age Pt/Family Agrees to Plan: Yes Safety Risks/Education Teaching Recipient: Patient Teaching Methods: Demonstration, Discussion Response to Teaching: Verbalize Understanding, Return Demonstration Education Topics Provided: Continued safety within her room Time Speech Therapy Time In: 08:30 Speech Therapy Time Out: 09:00 Total Billed Time: 30 Billed Treatment Time 1MILLIE [address] ST Feb 08, 2020 11:48
--- NOTE | 2020-02-08 12:42 | Physical Therapy Daily Note ---
PT Daily Note-Current Subjective Pt agreeable, conversing and pleasant throughout treatment. Pt denied pain. Mental Status Patient Orientation: Person, Place, Situation Transfers SCALE: Activities may be completed with or without assistive devices. 4-Ebvshaahtc-kquwhng completes the activity by him/herself with no assistance from a helper. 5-Set-up or Clean-up Assistance-helper sets up or cleans up; patient completes activity. [place] assists only prior to or following the activity. 4-Supervision or Touching Assistance-helper provides verbal cues and/or touching/steadying and/or contact guard assistance as patient completes activity. Assistance may be provided throughout the activity or intermittently. 3-Partial/Moderate Assistance-helper does LESS THAN HALF the effort. [place] lifts, holds or supports trunk or limbs, but provides less than half the effort. 2-Substantial/Maximal Assistance-helper does MORE THAN HALF the effort. [place] lifts or holds trunk or limbs and provides more than half the effort. 6-Ylsesmnht-dzkydx does ALL the effort. Patient does none of the effort to complete the activity. Or, the assistance of 2 or more helpers is required for the patient to complete the activity. If activity was not attempted, code reason: 7-Patient Refused. 9-Not Applicable-not attempted and the patient did not perform the activity before the current illness, exacerbation or injury. 10-Not Attempted due to Environmental Limitations-(lack of equipment, weather restraints, etc.). 88-Not Attempted due to Medical Conditions or Safety Concerns. Weight Bearing Full Weight Bearing Full Weight Bearing Treatments PT/OT co-treat ([id number]), skills of 2 clinicians required for coordination and skilled instruction of bathing, functional transfers, w/c mobility and sit to stands. PT focusing on transfers, sit to stand, w/c mobility and LE strengthening. OT focusing on ADLs, B UE placement during transfers, w/c mobility and sit to stand. Pt agrees to showering. Using sit to stand lift for all transfers. Using rolling shower chair with cutout to complete shower. Pt able to reach all areas, used long handle sponge for lower legs/feet, except assistance required for rosibel area and buttocks. Min A for upper body dressing, assist to pull down in back. Dependent for lower body dressing, assist to thread clothing over feet and using sit to stand lift to hike pants over hips. Max A for footwear. Pt taken to gym via w/c for standing in //bars with A of 2 persons. Pt stood 1 bout x 45sec, 1 bout x 60sec requiring min A for balance and blocking of knees. Pt SOB with exertion but recovered with 1-2 min rest breaks, O2 sats 88% recovering to 94% with exertion. Pt sat in front of sink to complete oral care independently. Dependent for transfer to [facility] and complete toileting using sit to stand lift. Mod A x2 for EOB to supine. After session, pt lying in bed with call light/phone in reach. All needs met. Assessment Current Status: Good Progress Pt tolerating activity really well. Pt progressing nicely with overall strength, endurance functional mobility. Pt on room air today, O2 sats dropping with standing activity but recovering nicely with rest of 1-2min. Pt pleasant and pleased with her progress. Pt back to room with MUNOZ post treatment. PT Short Term Goals Short Term Goals Time Frame: Feb 04, 2020 Roll Left & Right: 4 Sit to lyin Lying to sitting on side of be: 3 Sit to stand: 3 Chair/acj-hd-yveeu transfer: 3 Walk 10 feet: 3 PT Half-Way Goals Half-Way Goals PT Half-Way Goals Time Frame: Feb 18, 2020 Roll Left & Right (QC): 6 Sit to Lying (QC): 4 Lying-Sitting on Side/Bed(QC): 4 Sit to Stand (QC): 3 (Shelby) Chair/Cat-gv-Orsuj Xfer(QC): 3 (Shelby) Toilet Transfer (QC): 3 (Shelby) Car Transfer (QC): 3 (Shelby) Does the Patient Walk: No and Walking Goal IS indicated Walk 10 feet (QC): 3 Walk 50ft with 2 Turns (QC): 3 Walk 150 ft (QC): 88 Walking 10ft on Uneven Surface: 88 1 Step (curb) (QC): 88 4 Steps (QC): 88 12 Steps (QC): 88 Picking up an Object (QC): 88 Wheel 50 feet with 2 turns (QC: 6 Wheel 150 feet: 6 PT Plan Treatment/Plan Treatment Plan: Continue Plan of Care Treatment Plan: Bed Mobility, Education, Functional Activity Renny, Functional Strength, Group Therapy, Gait, Safety, Therapeutic Exercise, Transfers Treatment Duration: Feb 18, 2020 Frequency: At least 5 of 7 days/Wk (IRF) Estimated Hrs Per Day: 1.5 hours per day Patient and/or Family Agrees t: Yes Time/GCodes Time In: 900 Time Out: 1000 Total Billed Treatment Time: 60 Total Billed Treatment 1, FA x 60min (co-treat with OT x 60min) PEPITO BOOGIE CPTA Feb 08, 2020 12:42
--- NOTE | 2020-02-08 14:07 | Physical Therapy Daily Note ---
PT Daily Note-Current Subjective Pt resting in bed and agreeable to treatment. Pt states "My hubby is going to bring me chicken Lolita's and my curling iron tonight." Pt c/o sharp pain anterior knee joint with active knee extension initially. Pain eased with PROM on ball. Pt able to fully ext knee without pain after PROM. Mental Status Patient Orientation: Person, Place, Situation Transfers SCALE: Activities may be completed with or without assistive devices. 6-Xqvbzdmmzq-vyizvlw completes the activity by him/herself with no assistance from a helper. 5-Set-up or Clean-up Assistance-helper sets up or cleans up; patient completes activity. [place] assists only prior to or following the activity. 4-Supervision or Touching Assistance-helper provides verbal cues and/or touching/steadying and/or contact guard assistance as patient completes activity. Assistance may be provided throughout the activity or intermittently. 3-Partial/Moderate Assistance-helper does LESS THAN HALF the effort. [place] lifts, holds or supports trunk or limbs, but provides less than half the effort. 2-Substantial/Maximal Assistance-helper does MORE THAN HALF the effort. [place] l ifts or holds trunk or limbs and provides more than half the effort. 4-Yqoktbykc-akjqrc does ALL the effort. Patient does none of the effort to complete the activity. Or, the assistance of 2 or more helpers is required for the patient to complete the activity. If activity was not attempted, code reason: 7-Patient Refused. 9-Not Applicable-not attempted and the patient did not perform the activity before the current illness, exacerbation or injury. 10-Not Attempted due to Environmental Limitations-(lack of equipment, weather restraints, etc.). 88-Not Attempted due to Medical Conditions or Safety Concerns. Weight Bearing Full Weight Bearing Full Weight Bearing Treatments Ther ex: LE AP, QS, knee flexion with leg on therapy ball, opp hand to opp knee, SAQ, x 20 each Assessment Current Status: Good Progress Pt strength improving steadily. Pt resting in bed with call light and all needs met. O2 per nasal canula. PT Short Term Goals Short Term Goals Time Frame: Feb 04, 2020 Roll Left & Right: 4 Sit to lyin Lying to sitting on side of be: 3 Sit to stand: 3 Chair/fcb-vm-atkwr transfer: 3 Walk 10 feet: 3 PT Senior Care Goals Senior Care Goals PT Senior Care Goals Time Frame: Feb 18, 2020 Roll Left & Right (QC): 6 Sit to Lying (QC): 4 Lying-Sitting on Side/Bed(QC): 4 Sit to Stand (QC): 3 (Shelby) Chair/Ekm-bw-Lyncc Xfer(QC): 3 (Shelby) Toilet Transfer (QC): 3 (Shelby) Car Transfer (QC): 3 (Shelby) Does the Patient Walk: No and Walking Goal IS indicated Walk 10 feet (QC): 3 Walk 50ft with 2 Turns (QC): 3 Walk 150 ft (QC): 88 Walking 10ft on Uneven Surface: 88 1 Step (curb) (QC): 88 4 Steps (QC): 88 12 Steps (QC): 88 Picking up an Object (QC): 88 Wheel 50 feet with 2 turns (QC: 6 Wheel 150 feet: 6 PT Plan Treatment/Plan Treatment Plan: Continue Plan of Care Treatment Plan: Bed Mobility, Education, Functional Activity Renny, Functional Strength, Group Therapy, Gait, Safety, Therapeutic Exercise, Transfers Treatment Duration: Feb 18, 2020 Frequency: At least 5 of 7 days/Wk (IRF) Estimated Hrs Per Day: 1.5 hours per day Patient and/or Family Agrees t: Yes Time/GCodes Time In: 1255 Time Out: 1315 Total Billed Treatment Time: 20 Total Billed Treatment 1, ther ex 20' PEPITO BOOGIE CPTA Feb 08, 2020 14:07
[2020-02-08] MEDS: oxyCODONE/APAP 5/325MG (PERCOCET 5) TABLET PO PRN ×2 (16:15→21:27)
[2020-02-08 16:19] VITALS: BP 155/68
--- NOTE | 2020-02-08 19:14 | NUR ---
Bedside report received from FIDEL DEE, assume care of pt
[2020-02-08] MEDS: SERTRALINE 50 MG (ZOLOFT) TABLET PO SCH (21:26)
--- NOTE | 2020-02-08 21:27 | NUR ---
Pt refused Colace, Miralax, Senokot & Colestid, c/o neck & RT knee pain level 8/10 on numeric scale, Percocet 5/325 1 tab given
[2020-02-08] MEDS: MELATONIN 3 MG TABLET PO PRN (21:33)
[2020-02-08] MEDS: PRAMIPEXOLE 0.125 MG (MIRAPEX) TABLET PO SCH (21:39)
--- NOTE | 2020-02-08 22:15 | NUR ---
Rates pain at 4/10 on numeric scale
--- NOTE | 2020-02-09 05:50 | NUR ---
c/o neck & RT knee pain, level 7/10 on numeric scale, Oxyir 5mg given
[2020-02-09 05:59] VITALS: BP 154/71
--- NOTE | 2020-02-09 06:29 | NUR ---
Rates pain at 5/10 on numeric scale
--- NOTE | 2020-02-09 07:03 | PM&R Progress Note ---
Subjective HPI/CC On Admission Date Seen by Provider: Feb 09, 2020 Time Seen by Provider: 11:00 Subjective/Events-last exam 02/09/20: NO issues Uses sit to stand well Very weak 02/08/20: Using sit to stand and doing very well Bowels moved today A lot of pain issues Requires a lot of care 02/07/20: Room air maintained O2 sat but with the minimal exertion she goes down into the 80 percent Discontinue Colestid Overall feels like she is doing much better Able to use the sit to stand pretty well 02/06/20: Has multiple little complaints DC PICC since it simply did not function properly DC Venofer O2 on 1L/min 02/05/20: Tearful at times Right knee pain is terrible at times Mobic will be restarted along with other home meds that have now been reviewed 02/04/20: Using sit to stand very well Heels are red so managing that O2 on/off 02/03/20: Oxycodone and Xanax ordered APAP Skateboard Standing with assist Memory loss noted Less edema right knee BM 02/02: Pt doing pretty well Participating in therapy Very motivated to improve Maintained on O2 2 liters 02/01/20: Right knee pain continues but considering the risk for complications from steroid injection after Covid, she will be managing Overall doing pretty well on 2 L of Oxygen Will replace Picc line since it was placed in the arm where she has had her previous mastectomy 01/31/20: Dr. Dent graciously agreed to see her for right knee pain and will initiate an injection Hgb 9.1 so midline will be placed with iron infusions 2 L of oxygen maintained After rounds Dr Dent updated me on the fact that no injection initiated due to high risk following COVID 01/30/20: Right knee pain continues Will reach out to Dr Dent tomorrow Tapazole restarted Midline needed for iron infusions Severe right knee pain / today so adjusted her pain meds and xray noted severe OA Dr Scott usually gives her a right knee injections every 3 months and she is overdue I will try to have ortho give pain injection Friday Tapazole not on her list and she has Graves disease she states O2 at 80% so will maintain 2L/min O2 Checking iron level since hgb 9.1 Adding TSH FT4 to labs BM today loose Review of Systems Neurological: Weakness, Incoordination Objective Exam Vital Signs Vital Signs Date Time Temp Pulse Resp B/P (MAP) Pulse Ox O2 Delivery O2 Flow Rate FiO2 02/10/20 06:00 36.8 90 15 136/63 (87) 92 Nasal Cannula 1.00 Capillary Refill : Less Than 3 Seconds General Appearance: No Apparent Distress, WD/WN, Chronically ill HEENT: PERRL/EOMI, Normal ENT Inspection, Pharynx Normal Neck: Full Range of Motion, Normal Inspection, Non Tender, Supple, Carotid Bruit Respiratory: Chest Non Tender, Lungs Clear, No Accessory Muscle Use, No Respiratory Distress, Decreased Breath Sounds Cardiovascular: Regular Rate, Rhythm, No Edema, No Gallop, No JVD, No Murmur, Normal Peripheral Pulses Gastrointestinal: Normal Bowel Sounds, No Organomegaly, No Pulsatile Mass, Non Tender, Soft Back: Normal Inspection, No CVA Tenderness, No Vertebral Tenderness Extremity: Normal Capillary Refill, Normal Inspection, Normal Range of Motion, Non Tender, No Calf Tenderness, No Pedal Edema Neurologic/Psychiatric: Alert, Oriented x3, Normal Mood/Affect, head neck surgeon II-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 FIM Transfers Therapy Code Descriptions/Definitions Functional [place] Measure: 0=Not Assessed/NA 4=Minimal Assistance 1=Total Assistance 5=Supervision or Setup 2=Maximal Assistance 6=Modified [place] 3=Moderate Assistance 7=Complete IndependenceSCALE: Activities may be completed with or without assistive devices. 7-Aijosusxyl-racaizs completes the activity by him/herself with no assistance from a helper. 5-Set-up or Clean-up Assistance-helper sets up or cleans up; patient completes activity. [place] assists only prior to or following the activity. 4-Supervision or Touching Assistance-helper provides verbal cues and/or touching/steadying and/or contact guard assistance as patient completes activity. Assistance may be provided throughout the activity or intermittently. 3-Partial/Moderate Assistance-helper does LESS THAN HALF the effort. [place] lifts, holds or supports trunk or limbs, but provides less than half the effort. 2-Substantial/Maximal Assistance-helper does MORE THAN HALF the effort. [place] lifts or holds trunk or limbs and provides more than half the effort. 4-Dizqmbiwb-kiowie does ALL the effort. Patient does none of the effort to complete the activity. Or, the assistance of 2 or more helpers is required for the patient to complete the activity. If activity was not attempted, code reason: 7-Patient Refused. 9-Not Applicable-not attempted and the patient did not perform the activity before the current illness, exacerbation or injury. 10-Not Attempted due to Environmental Limitations-(lack of equipment, weather restraints, etc.). 88-Not Attempted due to Medical Conditions or Safety Concerns. Roll Left to Right (QC): 3 Sit to Lying (QC): 3 Sit to Stand (QC): 2 Chair/Xfi-np-Kkzji Xfer(QC): 2 Car Transfer (QC): 1 Gait Training Does the Patient Walk?: No and Walking Goal IS indicated Walk 10 feet (QC): 88 Walk 50 ft with 2 Turns(QC): 88 Walk 150 ft (QC): 88 Walking 10ft/uneven surface-QC: 88 Wheelchair Training Does the Pt Use a Wheelchair?: Yes Distance: 50'x2 Wheel 50 ft with 2 turns (QC): 3 Wheel 150 ft (QC): 4 Type of Wheelchair: Manual Stair Training 1 Step (curb) (QC): 88 4 Steps (QC): 88 12 Steps (QC): 88 Balance Picking up an Object (QC): 88 ADL-Treatment Eating (QC): 6 (Using clinical judgement, pt able to complete independently.) Oral Hygiene (QC): 6 Bathing Location: L Arm, R Arm, L Upper Leg, R Upper Leg, L Lower Leg (including foot), R Lower Leg (including foot), Chest, Abdomen Shower/Bathe Self (QC): 3 Upper Body Dressing (QC): 3 Lower Body Dressing (QC): 1 On/Off Footwear (QC): 2 Toileting Hygiene (QC): 1 Toilet Transfer (QC): 1 Assessment/Plan Assessment and Plan Assess & Plan/Chief Complaint Assessment: Critical illness debility from COVID-19 dx 12/11/19 OA h/o breast cancer Allergic rhinitis HTN GERD Depression Lung nodules [facility]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 Grave's disease Plan: IRF protocol Wean O2 Pain meds BM regimen 01/29/20: Restart Tapazole 5mg daily Knee injection by ortho will be pursued tomorrow O2 01/30/20: Right knee injection will be requested from Dr Dent Pain meds Tapazole O2 01/31/20: Knee injection not performed due to COVID related risk Monitor O2 Midline and Venofer 02/01/20: Monitor closely O2 wean IRF protocol 02/01/30: Monitor O2 Aggressive therapy 02/03/20: Stood with assist and parallel bars today Improved status IV Venofer after PICC changed 02/04/20: Monitor O2 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
[2020-02-09] MEDS: ENOXAPARIN 40 MG/0.4 ML (LOVENOX) SYR SC SCH (07:35)
[2020-02-09] MEDS: SERTRALINE 100 MG (ZOLOFT) TAB PO SCH (07:36)
[2020-02-09] MEDS: CYANOCOBALAMIN 1,000 MCG (VITAMIN B-12) TABLET PO SCH (07:36)
[2020-02-09] MEDS: SILDENAFIL 20 MG (REVATIO) TAB NON-FORMULARY PO SCH ×2 (07:36→21:03)
[2020-02-09] MEDS: GABAPENTIN 300 MG (NEURONTIN) CAP PO SCH ×3 (07:36→21:01)
[2020-02-09] MEDS: ALPRAZolam 0.25 MG (XANAX) TAB PO SCH ×2 (07:36→21:02)
[2020-02-09] MEDS: METHIMAZOLE 5 MG PO SCH (07:36)
[2020-02-09] MEDS: VALSARTAN 160 MG (DIOVAN) TABLET PO SCH (07:36)
[2020-02-09] MEDS: NIFEdipine ER 30 MG (PROCARDIA XL) TAB PO SCH (07:37)
[2020-02-09] MEDS: DOCUSATE SODIUM 100 MG (COLACE) CAP PO SCH ×2 (07:37→21:01)
[2020-02-09] MEDS: ASCORBIC ACID (VIT C) 500 MG TABLET PO SCH (07:37)
[2020-02-09] MEDS: LACTOBACILLUS ACIDOPHILUS (PROBIOTIC) CAPSULE PO SCH ×2 (07:37→21:01)
[2020-02-09] MEDS: MELOXICAM 7.5 MG (MOBIC) TABLET PO SCH (07:37)
[2020-02-09] MEDS: PANTOPRAZOLE 40 MG (PROTONIX) TAB PO SCH ×2 (07:37→21:01)
[2020-02-09] MEDS: ACETAMINOPHEN 650 MG PO SCH ×3 (07:38→21:02)
[2020-02-09] MEDS: MICONAZOLE 2% POWDER (DESENEX AF) 90 GM TOP SCH ×2 (07:40→21:08)
[2020-02-09] MEDS: DICLOFENAC 1% GEL 100 GM (VOLTAREN) TUBE TOP SCH ×4 (07:40→21:03)
[2020-02-09] MEDS: VITAMIN D3 125 MCG (5,000 UNITS) CAPSULE PO SCH (07:43)
[2020-02-09] MEDS: SENNA W/DOCUSATE (SENOKOT S) TABLET PO SCH ×2 (07:43→21:00)
[2020-02-09] MEDS: LIDOCAINE 4% (SALONPAS) PATCH TP SCH ×2 (07:44→21:03)
[2020-02-09] MEDS: polyethylene glycoL POWDER 17 GM (MIRALAX) PACK PO SCH ×2 (07:44→21:00)
--- NOTE | 2020-02-09 09:15 | Occupational Ther Daily Note ---
OT Current Status-Daily Note Subjective Pt alert, sitting in recliner. Pt agrees to therapy. No c/o pain at this time. Mental Status/Objective Patient Orientation: Person, Place, Time, Situation Attachments: Oxygen (at night and lying down 1L) ADL-Treatment During therapy session O2 off, pt's O2 levels would go into the high 80's with exertion then quickly go back to mid 90's with deep breathing techniques. PT/OT co-treat ([id number]), skills of 2 clinicians required for coordination and skilled instruction of bathing, functional transfers and sit to stands. PT focusing on transfers, sit to stand and LE strengthening. OT focusing on ADLs, B UE placement during transfers, w/c mobility and sit to stand. Using sit to stand lift for all transfers. Pt completed sponge bath, able to reach all areas except rosibel area/buttocks and feet. Pt donned shirt by self after set up. Pt requested to use BSC. Pt able to use chalk extruding machine operator to thread clothing over feet while sitting on BSC. Using sit to stand lift to stand while hygiene and clothing manipulation was completed by MUNOZ. Pt able to don/doff shoes by self after set up. Assist to don HANNAH hose. Independent sitting at sink to complete oral care. Therapy Code Descriptions/Definitions Functional [place] Measure: 0=Not Assessed/NA 4=Minimal Assistance 1=Total Assistance 5=Supervision or Setup 2=Maximal Assistance 6=Modified [place] 3=Moderate Assistance 7=Complete IndependenceSCALE: Activities may be completed with or without assistive devices. 2-Qzgdgrjoaf-vkrfypp completes the activity by him/herself with no assistance from a helper. 5-Set-up or Clean-up Assistance-helper sets up or cleans up; patient completes activity. [place] assists only prior to or following the activity. 4-Supervision or Touching Assistance-helper provides verbal cues and/or touching/steadying and/or contact guard assistance as patient completes activity. Assistance may be provided throughout the activity or intermittently. 3-Partial/Moderate Assistance-helper does LESS THAN HALF the effort. [place] lifts, holds or supports trunk or limbs, but provides less than half the effort. 2-Substantial/Maximal Assistance-helper does MORE THAN HALF the effort. [place] lifts or holds trunk or limbs and provides more than half the effort. 4-Jdsvpmhtu-jejsyg does ALL the effort. Patient does none of the effort to complete the activity. Or, the assistance of 2 or more helpers is required for the patient to complete the activity. If activity was not attempted, code reason: 7-Patient Refused. 9-Not Applicable-not attempted and the patient did not perform the activity before the current illness, exacerbation or injury. 10-Not Attempted due to Environmental Limitations-(lack of equipment, weather restraints, etc.). 88-Not Attempted due to Medical Conditions or Safety Concerns. Oral Hygiene (QC): 6 Bathing Location: L Arm, R Arm, L Upper Leg, R Upper Leg, Chest, Abdomen Shower/Bathe Self (QC): 1 (Sit to stand lift to stand to cleanse buttocks.) Upper Body Dressing (QC): 5 Lower Body Dressing (QC): 1 On/Off Footwear: 5 Toileting Hygiene (QC): 1 Toilet Transfer (QC): 1 Other Treatment Pt able to lean forward and push up with B UE and bear wt with feet to lift buttocks off of w/c seat to place sling for standing frame. Pt able to gasoline engine inspector standing frame for 10 min while completing fine and UE gross motor tasks to increase strength and dexterity for daily functional tasks. See PT notes for standing in parallel bars for 1 min. Pt requested to lay down in bed after session. Min A x2 for EOB to supine. Pt left in care of SHUTTLE FITTING SUPERVISOR. Call light/phone in reach. O2 in place. All needs met in room. Education OT Patient Education: Modified ADL techniques, Use of adapted equipment Teaching Recipient: Patient Teaching Methods: Demonstration, Discussion Response to Teaching: Verbalize Understanding, Return Demonstration, Reinforcement Needed OT Short Term Goals Short Term Goals Time Frame: Feb 09, 2020 Toileting hygiene: 3 Lower body dressin Putting on/taking off footwear: 3 OT Client Project Coordinator Goals Alf Goals Time Frame: Feb 18, 2020 Eating (QC): 6 Oral Hygiene (QC): 6 Toileting Hygiene (QC): 6 Shower/Bathe Self (QC): 6 Upper Body Dressing (QC): 6 Lower Body Dressing (QC): 6 On/Off Footwear (QC): 6 Additional Goals: 1-Demonstrate ADL Tasks, 2-Verbalize Understanding, 3- ImproveStrength/Renny 1=Demonstrate adherence to instructed precautions during ADL tasks. 2=Patient will verbalize/demonstrate understanding of assistive devices/modifications for ADL. 3=Patient will improve strength/tolerance for activity to enable patient to perform ADL's. OT Education/Plan Problem List/Assessment Assessment: Decreased Activ Tolerance, Decreased UE Strength, Dependent Transfers, Impaired Bed Mobility, Impaired Coordination, Impaired Funct Balance, Impaired Self-Care Skills Discharge Recommendations Plan/Recommendations: Continue POC Treatment Plan/Plan of Care Patient would benefit from OT for education, treatment and training to promote independence in ADL's, mobility, safety and/or upper extremity function for ADL's. Plan of Care: ADL Retraining, Functional Mobility, Group Exercise/Act as Ind, UE Funct Exercise/Act Treatment Duration: Feb 18, 2020 Frequency: At least 5 of 7 days/Wk (IRF) Estimated Hrs Per Day: 1.5 hours per day Agreement: Yes Rehab Potential: Fair Time/GCodes Start Time: 07:30 Stop Time: 09:00 Total Time Billed (hr/min): 90 Billed Treatment Time 1 visit-ADL 3 (45 min) FA 3 (45 min) co-treat with PT [id number], individual [id number] DENI GRISSOM Feb 09, 2020 09:15
--- NOTE | 2020-02-09 09:36 | Physical Therapy Daily Note ---
PT Daily Note-Current Subjective Pt agreeable. Pt pleasant and cooperative, conversing throughout. Mental Status Patient Orientation: Person, Place, Situation Transfers SCALE: Activities may be completed with or without assistive devices. 6-Ogwfuuenou-wibryya completes the activity by him/herself with no assistance from a helper. 5-Set-up or Clean-up Assistance-helper sets up or cleans up; patient completes activity. [place] assists only prior to or following the activity. 4-Supervision or Touching Assistance-helper provides verbal cues and/or touching/steadying and/or contact guard assistance as patient completes activity. Assistance may be provided throughout the activity or intermittently. 3-Partial/Moderate Assistance-helper does LESS THAN HALF the effort. [place] lift s, holds or supports trunk or limbs, but provides less than half the effort. 2-Substantial/Maximal Assistance-helper does MORE THAN HALF the effort. [place] lifts or holds trunk or limbs and provides more than half the effort. 5-Scoyhnuhx-pukflb does ALL the effort. Patient does none of the effort to complete the activity. Or, the assistance of 2 or more helpers is required for the patient to complete the activity. If activity was not attempted, code reason: 7-Patient Refused. 9-Not Applicable-not attempted and the patient did not perform the activity before the current illness, exacerbation or injury. 10-Not Attempted due to Environmental Limitations-(lack of equipment, weather restraints, etc.). 88-Not Attempted due to Medical Conditions or Safety Concerns. Weight Bearing Full Weight Bearing Full Weight Bearing Treatments During therapy session O2 off, pt's O2 levels would go into the high 80's with exertion then quickly go back to mid 90's with deep breathing techniques. PT/OT co-treat ([id number]), skills of 2 clinicians required for coordination and skilled instruction of bathing, functional transfers and sit to stands. PT focusing on transfers, sit to stand and LE strengthening. OT focusing on ADLs, B UE placement during transfers, w/c mobility and sit to stand. Using sit to stand lift for all transfers. Pt completed sponge bath and dressing. Using sit to stand lift to stand while hygiene and clothing manipulation was completed by MUNOZ. Pt able to don/doff shoes by self after set up. Assist to don HANNAH hose. Independent sitting at sink to complete oral care. STanding frame used for endurance training, UE activities. Pt stood in standing frame 10min, O2 sat fluctuated 86%-92%. Pt able to purse lip breath as needed to increase O2 sat. Pt practiced sit to french binder //bars with min A only, blocking of (B) knees. Pt stood x 1min. Pt SOB with exertion, O2 at 92% after standing in //bars. Pt back to bed with Liko lift. Pt resting in bed with call light and all needs met. Pt in care of speech therapist. Assessment Current Status: Excellent Progress Pt strength, stamina and ability to stand with decreased dependence progressing appropriately. Pt SOB at times but conversing throughout treatment and recovers quickly with rest. Pt making progress daily. PT Short Term Goals Short Term Goals Time Frame: Feb 04, 2020 Roll Left & Right: 4 Sit to lyin Lying to sitting on side of be: 3 Sit to stand: 3 Chair/zoc-yd-vjrwv transfer: 3 Walk 10 feet: 3 PT Freight Solicitor Goals Detention Goals PT Detention Goals Time Frame: Feb 18, 2020 Roll Left & Right (QC): 6 Sit to Lying (QC): 4 Lying-Sitting on Side/Bed(QC): 4 Sit to Stand (QC): 3 (Shelby) Chair/Qty-gu-Siokw Xfer(QC): 3 (Shelby) Toilet Transfer (QC): 3 (Shelby) Car Transfer (QC): 3 (Shelby) Does the Patient Walk: No and Walking Goal IS indicated Walk 10 feet (QC): 3 Walk 50ft with 2 Turns (QC): 3 Walk 150 ft (QC): 88 Walking 10ft on Uneven Surface: 88 1 Step (curb) (QC): 88 4 Steps (QC): 88 12 Steps (QC): 88 Picking up an Object (QC): 88 Wheel 50 feet with 2 turns (QC: 6 Wheel 150 feet: 6 PT Plan Treatment/Plan Treatment Plan: Continue Plan of Care Treatment Plan: Bed Mobility, Education, Functional Activity Renny, Functional Strength, Group Therapy, Gait, Safety, Therapeutic Exercise, Transfers Treatment Duration: Feb 18, 2020 Frequency: At least 5 of 7 days/Wk (IRF) Estimated Hrs Per Day: 1.5 hours per day Patient and/or Family Agrees t: Yes Time/GCodes Time In: 900 Time Out: 1000 Total Billed Treatment Time: 60 Total Billed Treatment 1, FA x 60' (Co-treat 60min) PEPITO BOOGIE CPTA Feb 09, 2020 09:35
[2020-02-09] MEDS: oxyCODONE/APAP 5/325MG (PERCOCET 5) TABLET PO PRN (10:45)
--- NOTE | 2020-02-09 11:00 | Speech Therapy Daily Note ---
Speech Daily Progress Note Subjective Date Seen by Provider: Feb 09, 2020 Time Seen by Provider: 00:30 Patient was resting in her bed following her OT and PT session. Objective Patient recalled steps for safe transfers and wheelchair mobility with 80% given minimal cues. Assessment Assessment Current Status: Good Progress Treatment Plan Continue Plan of Care Speech Short Term Goals Short Term Goals Short Term Goals 1) Patient will follow/recall multi step directions for wheelchair mobility without cues at 90% or greater. 2) Patient will recall sequencing for daily activities without cues at 90% or greater. Speech Custodial Goals Custodial Goals Patient will demonstrate safety awareness with all daily activities and processes. Speech-Plan Patient/Family Goals Patient/Family Goals: Patient plans on returning to her home where she lives with her . Treatment Plan Speech Therapy Treatment Plan: Continue Plan of Care Treatment Duration: Jan 31, 2020 Frequency: 4 times per week (Patient will receive ST 4-5x per week) Estimated Hrs Per Day: .5 hour per day Rehab Potential: Fair Barriers to Learning: Patient's lengthy serious illness, age Pt/Family Agrees to Plan: Yes Safety Risks/Education Teaching Recipient: Patient Teaching Methods: Demonstration, Discussion Response to Teaching: Verbalize Understanding, Return Demonstration Education Topics Provided: Continued safety awareness for sequence of transfers and wheelchair mobility. Time Speech Therapy Time In: 09:00 Speech Therapy Time Out: 09:30 Total Billed Time: 30 Billed Treatment Time 1MILLIE BETHANIA ST Feb 09, 2020 11:00
--- NOTE | 2020-02-09 14:46 | Physical Therapy Daily Note ---
PT Daily Note-Current Subjective Pt presents supine in bed upon arrival to room, agreeable to therapy but states that she is fatigued from the morning session. Pt reports she is pleased with her progress the past couple days. Does report R knee pain, but doesn't give objective measurement Appearance Following session, pt in bed with call light and tray within reach. All needs met at current time. Mental Status Patient Orientation: Person, Place, Situation Attachments: Oxygen Transfers SCALE: Activities may be completed with or without assistive devices. 0-Ozutwuldaq-gsdengr completes the activity by him/herself with no assistance from a helper. 5-Set-up or Clean-up Assistance-helper sets up or cleans up; patient completes activity. [place] assists only prior to or following the activity. 4-Supervision or Touching Assistance-helper provides verbal cues and/or svitlana katty/steadying and/or contact guard assistance as patient completes activity. Assistance may be provided throughout the activity or intermittently. 3-Partial/Moderate Assistance-helper does LESS THAN HALF the effort. [place] lifts, holds or supports trunk or limbs, but provides less than half the effort. 2-Substantial/Maximal Assistance-helper does MORE THAN HALF the effort. [place] lifts or holds trunk or limbs and provides more than half the effort. 8-Wwtdeqpcc-jnjwlq does ALL the effort. Patient does none of the effort to complete the activity. Or, the assistance of 2 or more helpers is required for the patient to complete the activity. If activity was not attempted, code reason: 7-Patient Refused. 9-Not Applicable-not attempted and the patient did not perform the activity before the current illness, exacerbation or injury. 10-Not Attempted due to Environmental Limitations-(lack of equipment, weather restraints, etc.). 88-Not Attempted due to Medical Conditions or Safety Concerns. Weight Bearing Full Weight Bearing Full Weight Bearing Exercises Supine Ex: Bridging, Ankle pumps, Pelvic tilt, Quad Set, Glut sets, Heel Slides, Short Arc Quads Supine Reps: 20 Assessment Current Status: Good Progress Pt with good efforts this afternoon, increased difficulty with RLE exercises due to increased knee pain. PT Short Term Goals Short Term Goals Time Frame: Feb 04, 2020 Roll Left & Right: 4 Sit to lyin Lying to sitting on side of be: 3 Sit to stand: 3 Chair/npb-zb-aapzj transfer: 3 Walk 10 feet: 3 PT Penitentiary Goals Batterboard Setter Goals PT Penitentiary Goals Time Frame: Feb 18, 2020 Roll Left & Right (QC): 6 Sit to Lying (QC): 4 Lying-Sitting on Side/Bed(QC): 4 Sit to Stand (QC): 3 (Shelby) Chair/Dzp-pw-Hdcax Xfer(QC): 3 (Shelby) Toilet Transfer (QC): 3 (Shelby) Car Transfer (QC): 3 (Shelby) Does the Patient Walk: No and Walking Goal IS indicated Walk 10 feet (QC): 3 Walk 50ft with 2 Turns (QC): 3 Walk 150 ft (QC): 88 Walking 10ft on Uneven Surface: 88 1 Step (curb) (QC): 88 4 Steps (QC): 88 12 Steps (QC): 88 Picking up an Object (QC): 88 Wheel 50 feet with 2 turns (QC: 6 Wheel 150 feet: 6 PT Plan Problem List Problem List: Activity Tolerance, Functional Strength, Safety, Balance, Gait, Transfer, Bed Mobility, ROM Treatment/Plan Treatment Plan: Continue Plan of Care Treatment Plan: Bed Mobility, Education, Functional Activity Renny, Functional Strength, Group Therapy, Gait, Safety, Therapeutic Exercise, Transfers Treatment Duration: Feb 18, 2020 Frequency: At least 5 of 7 days/Wk (IRF) Estimated Hrs Per Day: 1.5 hours per day Patient and/or Family Agrees t: Yes Time/GCodes Time In: 1300 Time Out: 1315 Total Billed Treatment Time: 15 Total Billed Treatment 1 visit EX (15') ANGELA LAINEZ PT Feb 09, 2020 14:46
--- NOTE | 2020-02-09 17:00 | NUR ---
CM/SS PATIENT CARE CONFERENCE Patient reviewed Summary and sheet writer then answered her questions to her satisfaction. She remains tearful at times when talking about how Covid19 has left her so deconditioned and dependent. She has much contact from her family members, gaona from her spouse, phone calls from him, children, grandchildren, which inspires her. She refers to them as her cheerleaders. Patient was in agreement with team proposal for continued stay on unit with next review Friday, 02/15. Barriers to discharge to home, her goal, is that she still requires assistive devices for transfers. She did make progress regarding standing short periods which she is very pleased about. We discussed using a wheelchair at home, including ramp for entry and then rearranging her house to accommodate. Patient has a resource in mind for a ramp, she stated she would discuss this with both the resource and her spouse. Aircraft Charter Dispatcher encouraged this to be a priority due to the likelihood she will require a ramp/wheelchair unless she regains endurance at a quicker pace. Hopeful she could use FWW for ambulation primarily with wheelchair as needed. Patient is personally discouraged by not making a quicker comeback, does respond to reflective listening and then emphasizing that she definitely has made progress from day of admission.
[2020-02-09 17:25] VITALS: BP 148/73
[2020-02-09] MEDS: PRAMIPEXOLE 0.125 MG (MIRAPEX) TABLET PO SCH (21:00)
[2020-02-09] MEDS: MELATONIN 3 MG TABLET PO PRN (21:00)
[2020-02-09] MEDS: SERTRALINE 50 MG (ZOLOFT) TABLET PO SCH (21:01)
[2020-02-10] MEDS: ACETAMINOPHEN 650 MG PO SCH ×3 (05:54→21:28)
[2020-02-10 06:00] VITALS: BP 136/63
--- NOTE | 2020-02-10 07:00 | PM&R Progress Note ---
Subjective HPI/CC On Admission Date Seen by Provider: Feb 10, 2020 Time Seen by Provider: 13:30 Subjective/Events-last exam 02/10/20: Had an ill episode earlier today Labs and c diff no acute issues Now resolved Doing well currently 02/09/20: NO issues Uses sit to stand well Very weak 02/08/20: Using sit to stand and doing very well Bowels moved today A lot of pain issues Requires a lot of care 02/07/20: Room air maintained O2 sat but with the minimal exertion she goes down into the 80 percent Discontinue Colestid Overall feels like she is doing much better Able to use the sit to stand pretty well 02/06/20: Has multiple little complaints DC PICC since it simply did not function properly DC Venofer O2 on 1L/min 02/05/20: Tearful at times Right knee pain is terrible at times Mobic will be restarted along with other home meds that have now been reviewed 02/04/20: Using sit to stand very well Heels are red so managing that O2 on/off 02/03/20: Oxycodone and Xanax ordered APAP Skateboard Standing with assist Memory loss noted Less edema right knee BM 02/02: Pt doing pretty well Participating in therapy Very motivated to improve Maintained on O2 2 liters 02/01/20: Right knee pain continues but considering the risk for complications from steroid injection after Covid, she will be managing Overall doing pretty well on 2 L of Oxygen Will replace Picc line since it was placed in the arm where she has had her previous mastectomy 01/31/20: Dr. Dent graciously agreed to see her for right knee pain and will initiate an injection Hgb 9.1 so midline will be placed with iron infusions 2 L of oxygen maintained After rounds Dr Dent updated me on the fact that no injection initiated due to high risk following COVID 01/30/20: Right knee pain continues Will reach out to Dr Dent tomorrow Tapazole restarted Midline needed for iron infusions Severe right knee pain 10/ today so adjusted her pain meds and xray noted severe OA Dr Scott usually gives her a right knee injections every 3 months and she is overdue I will try to have ortho give pain injection Friday Tapazole not on her list and she has Graves disease she states O2 at 80% so will maintain 2L/min O2 Checking iron level since hgb 9.1 Adding TSH FT4 to labs BM today loose Review of Systems General: Fatigue, Malaise Neurological: Weakness, Incoordination Focused Exam Lactate Level 02/10/20 08:12: Lactic Acid Level 1.92 Objective Exam Vital Signs Vital Signs Date Time Temp Pulse Resp B/P (MAP) Pulse Ox O2 Delivery O2 Flow Rate FiO2 02/10/20 21:00 Nasal Cannula 1.00 02/10/20 16:21 36.8 80 16 109/52 (71) 93 Capillary Refill : Less Than 3 Seconds General Appearance: No Apparent Distress, WD/WN, Chronically ill HEENT: PERRL/EOMI, Normal ENT Inspection, Pharynx Normal Neck: Full Range of Motion, Normal Inspection, Non Tender, Supple, Carotid Bruit Respiratory: Chest Non Tender, Lungs Clear, No Accessory Muscle Use, No Respiratory Distress, Decreased Breath Sounds Cardiovascular: Regular Rate, Rhythm, No Edema, No Gallop, No JVD, No Murmur, Normal Peripheral Pulses Gastrointestinal: Normal Bowel Sounds, No Organomegaly, No Pulsatile Mass, Non Tender, Soft Back: Normal Inspection, No CVA Tenderness, No Vertebral Tenderness Extremity: Normal Capillary Refill, Normal Inspection, Normal Range of Motion, Non Tender, No Calf Tenderness, No Pedal Edema Neurologic/Psychiatric: Alert, Oriented x3, Normal Mood/Affect, equipment mechanic specialist II-XII Norm as Tested, Motor Weakness (3/5 lower extremities, 4/5 upper) Skin: Normal Color, Warm/Dry Lymphatic: No Adenopathy Results/Procedures Lab Laboratory Tests 02/10/20 08:12 Patient resulted labs reviewed. FIM Transfers Therapy Code Descriptions/Definitions Functional [place] Measure: 0=Not Assessed/NA 4=Minimal Assistance 1=Total Assistance 5=Supervision or Setup 2=Maximal Assistance 6=Modified [place] 3=Moderate Assistance 7=Complete IndependenceSCALE: Activities may be completed with or without assistive devices. 5-Cfqypohzet-crdkcgp completes the activity by him/herself with no assistance from a helper. 5-Set-up or Clean-up Assistance-helper sets up or cleans up; patient completes activity. [place] assists only prior to or following the activity. 4-Supervision or Touching Assistance-helper provides verbal cues and/or touching/steadying and/or contact guard assistance as patient completes activity. Assistance may be provided throughout the activity or intermittently. 3-Partial/Moderate Assistance-helper does LESS THAN HALF the effort. [place] lifts, holds or supports trunk or limbs, but provides less than half the effort. 2-Substantial/Maximal Assistance-helper does MORE THAN HALF the effort. [place] lifts or holds trunk or limbs and provides more than half the effort. 0-Karpyitdm-ufkoum does ALL the effort. Patient does none of the effort to complete the activity. Or, the assistance of 2 or more helpers is required for the patient to complete the activity. If activity was not attempted, code reason: 7-Patient Refused. 9-Not Applicable-not attempted and the patient did not perform the activity before the current illness, exacerbation or injury. 10-Not Attempted due to Environmental Limitations-(lack of equipment, weather restraints, etc.). 88-Not Attempted due to Medical Conditions or Safety Concerns. Roll Left to Right (QC): 3 Sit to Lying (QC): 3 Sit to Stand (QC): 2 Chair/Ghd-ie-Eutih Xfer(QC): 2 Car Transfer (QC): 1 Gait Training Does the Patient Walk?: No and Walking Goal IS indicated Walk 10 feet (QC): 88 Walk 50 ft with 2 Turns(QC): 88 Walk 150 ft (QC): 88 Walking 10ft/uneven surface-QC: 88 Wheelchair Training Does the Pt Use a Wheelchair?: Yes Distance: 50'x2 Wheel 50 ft with 2 turns (QC): 3 Wheel 150 ft (QC): 4 Type of Wheelchair: Manual Stair Training 1 Step (curb) (QC): 88 4 Steps (QC): 88 12 Steps (QC): 88 Balance Picking up an Object (QC): 88 ADL-Treatment Eating (QC): 6 (Using clinical judgement, pt able to complete independently.) Oral Hygiene (QC): 6 Bathing Location: L Arm, R Arm, L Upper Leg, R Upper Leg, Chest, Abdomen Shower/Bathe Self (QC): 1 (Sit to stand lift to stand to cleanse buttocks.) Upper Body Dressing (QC): 5 Lower Body Dressing (QC): 1 On/Off Footwear (QC): 5 Toileting Hygiene (QC): 1 Toilet Transfer (QC): 1 Assessment/Plan Assessment and Plan Assess & Plan/Chief Complaint Assessment: Critical illness debility from COVID-19 dx 12/11/19 OA h/o breast cancer Allergic rhinitis HTN GERD Depression Lung nodules [facility] 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 since residential stable Grave's disease Plan: IRF protocol Wean O2 Pain meds BM regimen 01/29/20: Restart Tapazole 5mg daily Knee injection by ortho will be pursued tomorrow O2 01/30/20: Right knee injection will be requested from Dr Dent Pain meds Tapazole O2 01/31/20: Knee injection not performed due to COVID related risk Monitor O2 Midline and Venofer 02/01/20: Monitor closely O2 wean IRF protocol 02/01/30: Monitor O2 Aggressive therapy 02/03/20: Stood with assist and parallel bars today Improved status IV Venofer after PICC changed 02/04/20: Monitor O2 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
[2020-02-10] MEDS: ENOXAPARIN 40 MG/0.4 ML (LOVENOX) SYR SC SCH (07:45)
--- NOTE | 2020-02-10 07:55 | Occupational Ther Daily Note ---
OT Current Status-Daily Note Subjective Pt alert, sitting in recliner. Pt states that she is chilling and just not feeling well. Nrsg in room taking vital signs and monitoring pt. Mental Status/Objective Patient Orientation: Person, Place, Time, Situation Attachments: Oxygen ADL-Treatment Pt requests to use BSC. Pt is having loose stool, nrsg to check for C-Diff. Pt is demonstrating increased sitting mobility being able to scoot self forward and backward and leaning with slight hip raise from one side to another. Pt re quires sit to stand lift for transfer to BSC and bed. Pt dependent for toileting and transfers. Min A for B LE to lift into bed. Max A for bed mobility. After session, pt lying in bed with call light/phone in reach. All needs met in room. Therapy Code Descriptions/Definitions Functional [place] Measure: 0=Not Assessed/NA 4=Minimal Assistance 1=Total Assistance 5=Supervision or Setup 2=Maximal Assistance 6=Modified [place] 3=Moderate Assistance 7=Complete IndependenceSCALE: Activities may be completed with or without assistive devices. 8-Auvzgnrdig-xnmkpaj completes the activity by him/herself with no assistance from a helper. 5-Set-up or Clean-up Assistance-helper sets up or cleans up; patient completes activity. [place] assists only prior to or following the activity. 4-Supervision or Touching Assistance-helper provides verbal cues and/or touching/steadying and/or contact guard assistance as patient completes activity. Assistance may be provided throughout the activity or intermittently. 3-Partial/Moderate Assistance-helper does LESS THAN HALF the effort. [place] lifts, holds or supports trunk or limbs, but provides less than half the effort. 2-Substantial/Maximal Assistance-helper does MORE THAN HALF the effort. [place] lifts or holds trunk or limbs and provides more than half the effort. 9-Etbwwtqea-wvltrq does ALL the effort. Patient does none of the effort to complete the activity. Or, the assistance of 2 or more helpers is required for the patient to complete the activity. If activity was not attempted, code reason: 7-Patient Refused. 9-Not Applicable-not attempted and the patient did not perform the activity before the current illness, exacerbation or injury. 10-Not Attempted due to Environmental Limitations-(lack of equipment, weather restraints, etc.). 88-Not Attempted due to Medical Conditions or Safety Concerns. Toileting Hygiene (QC): 1 Toilet Transfer (QC): 1 OT Short Term Goals Short Term Goals Time Frame: Feb 09, 2020 Toileting hygiene: 3 Lower body dressin Putting on/taking off footwear: 3 OT Mcfp Goals Mcfp Goals Time Frame: Feb 18, 2020 Eating (QC): 6 Oral Hygiene (QC): 6 Toileting Hygiene (QC): 6 Shower/Bathe Self (QC): 6 Upper Body Dressing (QC): 6 Lower Body Dressing (QC): 6 On/Off Footwear (QC): 6 Additional Goals: 1-Demonstrate ADL Tasks, 2-Verbalize Understanding, 3- ImproveStrength/Renny 1=Demonstrate adherence to instructed precautions during ADL tasks. 2=Patient will verbalize/demonstrate understanding of assistive devices/modifications for ADL. 3=Patient will improve strength/tolerance for activity to enable patient to perform ADL's. OT Education/Plan Problem List/Assessment Assessment: Decreased Activ Tolerance, Impaired Self-Care Skills Discharge Recommendations Plan/Recommendations: Continue POC Treatment Plan/Plan of Care Patient would benefit from OT for education, treatment and training to promote independence in ADL's, mobility, safety and/or upper extremity function for AD L's. Plan of Care: ADL Retraining, Functional Mobility, Group Exercise/Act as Ind, UE Funct Exercise/Act Treatment Duration: Feb 18, 2020 Frequency: At least 5 of 7 days/Wk (IRF) Estimated Hrs Per Day: 1.5 hours per day Agreement: Yes Rehab Potential: Fair Time/GCodes Start Time: 07:25 Stop Time: 07:55 Total Time Billed (hr/min): 30 Billed Treatment Time 1 visit-ADL 2 (30 min) DENI GRISSOM Feb 10, 2020 07:55
[2020-02-10 07:56] VITALS: BP 125/72
--- NOTE | 2020-02-10 07:57 | NUR ---
Patient had multiple loose stools this morning. Complains of stomach pain, chills, no nausea. Patient is afebrile at this time. VS WNL. Physician notified, new orders received.
[2020-02-10] MEDS: ONDANSETRON 4 MG (ZOFRAN) ORAL DISSOLVE TAB PO PRN (08:15)
[2020-02-10] MEDS: GABAPENTIN 300 MG (NEURONTIN) CAP PO SCH ×3 (08:18→21:24)
[2020-02-10] MEDS: LIDOCAINE 4% (SALONPAS) PATCH TP SCH ×2 (08:18→21:25)
[2020-02-10] MEDS: NIFEdipine ER 30 MG (PROCARDIA XL) TAB PO SCH (08:18)
[2020-02-10] MEDS: SERTRALINE 100 MG (ZOLOFT) TAB PO SCH (08:18)
[2020-02-10] MEDS: ALPRAZolam 0.25 MG (XANAX) TAB PO SCH ×2 (08:18→21:25)
[2020-02-10] MEDS: LACTOBACILLUS ACIDOPHILUS (PROBIOTIC) CAPSULE PO SCH ×2 (08:18→21:24)
[2020-02-10] MEDS: PANTOPRAZOLE 40 MG (PROTONIX) TAB PO SCH ×2 (08:18→21:24)
[2020-02-10] MEDS: SILDENAFIL 20 MG (REVATIO) TAB NON-FORMULARY PO SCH ×2 (08:18→21:26)
[2020-02-10 08:31] LABS: ALBUMIN 3.3 GM/DL (3.2-4.5); BASOPHILS % (AUTO) 1 % (0-10); EOSINOPHILS # (AUTO) 0.2 10^3/uL (0.0-0.3); EOSINOPHILS % (AUTO) 3 % (0-10); HEMATOCRIT 36 % (35-52); HEMOGLOBIN 10.3 g/dL (11.5-16.0); LYMPHOCYTES % (AUTO) 15 % (12-44); MEAN CORPUSCULAR HEMOGLOBIN 29 pg (25-34); MEAN CORPUSCULAR HGB CONC 29 g/dL (32-36); MEAN CORPUSCULAR VOLUME 103 fL (80-99); MEAN PLATELET VOLUME 10.9 fL (9.0-12.2); MONOCYTES # (AUTO) 0.5 10^3/uL (0.0-1.0); MONOCYTES % (AUTO) 7 % (0-12); NEUTROPHILS # (AUTO) 4.9 10^3/uL (1.8-7.8); NEUTROPHILS % (AUTO) 73 % (42-75); PLATELET COUNT 233 10^3/uL (130-400); WHITE BLOOD COUNT 6.6 10^3/uL (4.3-11.0)
[2020-02-10 08:32] LABS: CHLORIDE 108 MMOL/L (98-107); POTASSIUM 3.8 MMOL/L (3.6-5.0); SODIUM 142 MMOL/L (135-145)
[2020-02-10 08:33] LABS: CALCIUM 10.2 MG/DL (8.5-10.1)
[2020-02-10 08:34] LABS: GLUCOSE 123 MG/DL (70-105); TOTAL PROTEIN 5.8 GM/DL (6.4-8.2)
[2020-02-10 08:35] LABS: CARBON DIOXIDE 24 MMOL/L (21-32)
[2020-02-10 08:36] LABS: BILIRUBIN,TOTAL 0.3 MG/DL (0.1-1.0)
[2020-02-10 08:37] LABS: ALKALINE PHOSPHATASE 34 U/L (40-136)
[2020-02-10 08:38] LABS: CREATININE SERUM 0.72 MG/DL (0.60-1.30); GFR ESTIMATED > 60
[2020-02-10 08:39] LABS: BUN/CREATININE RATIO 17
[2020-02-10 08:40] LABS: ALANINE AMINOTRANSFERASE 6 U/L (0-55)
[2020-02-10] MEDS: DOCUSATE SODIUM 100 MG (COLACE) CAP PO SCH ×2 (09:00→21:22)
[2020-02-10] MEDS: polyethylene glycoL POWDER 17 GM (MIRALAX) PACK PO SCH ×2 (09:00→21:23)
[2020-02-10] MEDS: SENNA W/DOCUSATE (SENOKOT S) TABLET PO SCH ×2 (09:00→21:28)
--- NOTE | 2020-02-10 09:22 | Speech Therapy Daily Note ---
Speech Daily Progress Note Subjective Date Seen by Provider: Feb 10, 2020 Time Seen by Provider: 00:30 Patient was resting in bed due to having an upset stomach, (C-Diff) Objective Patient verbally demonstrated recall of information for transfers and wheelchair mobility with 80% accuracy. Assessment Assessment Current Status: Good Progress Treatment Plan Continue Plan of Care Speech Short Term Goals Short Term Goals Short Term Goals 1) Patient will follow/recall multi step directions for wheelchair mobility without cues at 90% or greater. 2) Patient will recall sequencing for daily activities without cues at 90% or greater. Speech Correction Goals Correction Goals Patient will demonstrate safety awareness with all daily activities and processes. Speech-Plan Patient/Family Goals Patient/Family Goals: Patient plans on returning home where she lives with her . Treatment Plan Speech Therapy Treatment Plan: Continue Plan of Care Treatment Duration: Jan 31, 2020 Frequency: 4 times per week (Patient will receive ST 4-5x per week) Estimated Hrs Per Day: .5 hour per day Rehab Potential: Fair Barriers to Learning: Patient's recent illness, age Pt/Family Agrees to Plan: Yes Safety Risks/Education Teaching Recipient: Patient Teaching Methods: Demonstration, Discussion Response to Teaching: Verbalize Understanding, Return Demonstration Education Topics Provided: Safety within her room Time Speech Therapy Time In: 08:30 Speech Therapy Time Out: 09:00 Total Billed Time: 30 Billed Treatment Time 1MILLIE B[address] ST Feb 10, 2020 09:22
--- NOTE | 2020-02-10 10:10 | Physical Therapy Daily Note ---
PT Daily Note-Current Subjective Pt presents supine in bed upon arrival to room, pt agreeable to complete bed exercises, but denies OOB activities at this date due to her not feeling well. Pt reports she was up multiple times in the night to use the BSC so she didn't get much sleep. Appearance Following session, pt supine in bed with call light and tray within reach. All needs met at this time. Mental Status Patient Orientation: Person, Place, Situation Attachments: Oxygen Transfers SCALE: Activities may be completed with or without assistive devices. 4-Vihirnduyc-eqhknvn completes the activity by him/herself with no assistance from a helper. 5-Set-up or Clean-up Assistance-helper sets up or cleans up; patient completes activity. [place] assists only prior to or following the activity. 4-Supervision or Touching Assistance-helper provides verbal cues and/or touch ing/steadying and/or contact guard assistance as patient completes activity. Assistance may be provided throughout the activity or intermittently. 3-Partial/Moderate Assistance-helper does LESS THAN HALF the effort. [place] lifts, holds or supports trunk or limbs, but provides less than half the effort. 2-Substantial/Maximal Assistance-helper does MORE THAN HALF the effort. [place] lifts or holds trunk or limbs and provides more than half the effort. 9-Pcclvxygw-ysbmnn does ALL the effort. Patient does none of the effort to complete the activity. Or, the assistance of 2 or more helpers is required for the patient to complete the activity. If activity was not attempted, code reason: 7-Patient Refused. 9-Not Applicable-not attempted and the patient did not perform the activity before the current illness, exacerbation or injury. 10-Not Attempted due to Environmental Limitations-(lack of equipment, weather restraints, etc.). 88-Not Attempted due to Medical Conditions or Safety Concerns. Roll Left & Right (QC): 4 Pt practiced rolling R & L x5 each. Pt showed great progress from initial roll to last one, demonstrating ability to roll either direction without physical assistance only verbal cueing. Weight Bearing Full Weight Bearing Full Weight Bearing Exercises Supine Ex: Bridging, Ankle pumps, Quad Set, Rolling, Glut sets, Heel Slides, Short Arc Quads, Scooting, Straight leg raise, Hip abd/add Supine Reps: 15 Treatments PT/OT co-treat ([id number]), skills of 2 clinicians required due to poor patient mobility, strength, endurance, balance, safety and decrease fall risk, coordinate UE and LE during activity. Pt completed alternating exercises of lower extremity strengthening and UE strengthening with OT. After completing strengthening therex, pt practiced 5 reps of rolling to both ther (R) and (L), starting with physical assistance and verbal cues and ending with only requiring verbal cueing. After rolls, pt then practices scooting up in the bed with a bridging activity. Pt demonstrates good effort throughout session, despite feeling sick to stomach and chills Assessment Current Status: Fair Progress Pt making good progress with bed mobility this date. Pt continues to require rest breaks due to SOB, will continue to progress activity tolerance, strengthening, and functional activities as able. PT Short Term Goals Short Term Goals Time Frame: Feb 04, 2020 Roll Left & Right: 4 Sit to lyin Lying to sitting on side of be: 3 Sit to stand: 3 Chair/khh-oj-ogzwq transfer: 3 Walk 10 feet: 3 PT Biological Engineer Goals Fdc Goals PT Fdc Goals Time Frame: Feb 18, 2020 Roll Left & Right (QC): 6 Sit to Lying (QC): 4 Lying-Sitting on Side/Bed(QC): 4 Sit to Stand (QC): 3 ([place]) Chair/Fmv-ji-Ivteb Xfer(QC): 3 ([place]) Toilet Transfer (QC): 3 ([place]) Car Transfer (QC): 3 ([place]) Does the Patient Walk: No and Walking Goal IS indicated Walk 10 feet (QC): 3 Walk 50ft with 2 Turns (QC): 3 Walk 150 ft (QC): 88 Walking 10ft on Uneven Surface: 88 1 Step (curb) (QC): 88 4 Steps (QC): 88 12 Steps (QC): 88 Picking up an Object (QC): 88 Wheel 50 feet with 2 turns (QC: 6 Wheel 150 feet: 6 PT Plan Problem List Problem List: Activity Tolerance, Functional Strength, Safety, Balance, Gait, Transfer, Bed Mobility, ROM Treatment/Plan Treatment Plan: Continue Plan of Care Treatment Plan: Bed Mobility, Education, Functional Activity Renny, Functional Strength, Group Therapy, Gait, Safety, Therapeutic Exercise, Transfers Treatment Duration: Feb 18, 2020 Frequency: At least 5 of 7 days/Wk (IRF) Estimated Hrs Per Day: 1.5 hours per day Patient and/or Family Agrees t: Yes Time/GCodes Time In: 900 Time Out: 1000 Total Billed Treatment Time: 60 Total Billed Treatment 1 visit EX (50') FA (10') ANGELA LAINEZ PT Feb 10, 2020 10:10
--- NOTE | 2020-02-10 10:11 | Occupational Ther Daily Note ---
OT Current Status-Daily Note Subjective Pt alert, lying in bed. Pt agrees to therapy. Pt still chilling and just doesn't feel well, but wants to work with therapy. C-Diff is negative per nrsg. Mental Status/Objective Patient Orientation: Person, Place, Time, Situation Attachments: Oxygen ADL-Treatment Therapy Code Descriptions/Definitions Functional [place] Measure: 0=Not Assessed/NA 4=Minimal Assistance 1=Total Assistance 5=Supervision or Setup 2=Maximal Assistance 6=Modified [place] 3=Moderate Assistance 7=Complete IndependenceSCALE: Activities may be completed with or without assistive devices. 8-Yuiyyxqxpe-qweassi completes the activity by him/herself with no assistance from a helper. 5-Set-up or Clean-up Assistance-helper sets up or cleans up; patient completes activity. [place] assists only prior to or following the activity. 4-Supervision or Touching Assistance-helper provides verbal cues and/or touching/steadying and/or contact guard assistance as patient completes activity. Assistance may be provided throughout the activity or intermittently. 3-Partial/Moderate Assistance-helper does LESS THAN HALF the effort. [place] lifts, holds or supports trunk or limbs, but provides less than half the effort. 2-Substantial/Maximal Assistance-helper does MORE THAN HALF the effort. [place] lifts or holds trunk or limbs and provides more than half the effort. 0-Wpuresqvm-cltypt does ALL the effort. Patient does none of the effort to complete the activity. Or, the assistance of 2 or more helpers is required for the patient to complete the activity. If activity was not attempted, code reason: 7-Patient Refused. 9-Not Applicable-not attempted and the patient did not perform the activity before the current illness, exacerbation or injury. 10-Not Attempted due to Environmental Limitations-(lack of equipment, weather restraints, etc.). 88-Not Attempted due to Medical Conditions or Safety Concerns. Other Treatment Co-treat with PT ([id number]), skills of 2 clinicians required due to decreased mobility, SOA and frequent recovery breaks, fall risk and decreased activity tolerance. PT focusing on bed mobility and B LE strengthening. OT focusing on bed mobility and B UE strengthening. Pt able to complete B UE strengthening exercises in all places with resistance, 1 set 10 reps 6 exercises. Pt then was educated on correct technique for rolling side to side in bed. Pt initially required increased assistance then by the 5th rep, pt able to complete with SBA to CGA to roll to each side. Pt required assistance to bend B LE's for placem ent to complete bridge, unable to clear bed at this time. Min A with HOB in decline to scoot self up in bed. Pt requires multiple recovery breaks throughout sessions due to decreased activity tolerance and SOA. After session, pt lying in bed with call light/phone in reach. All needs met in room. Education OT Patient Education: Exercise program, Transfer techniques Teaching Methods: Demonstration, Discussion Response to Teaching: Verbalize Understanding, Return Demonstration, Reinforcement Needed OT Short Term Goals Short Term Goals Time Frame: Feb 09, 2020 Toileting hygiene: 3 Lower body dressin Putting on/taking off footwear: 3 OT Mottler Operator Goals Halfway Goals Time Frame: Feb 18, 2020 Eating (QC): 6 Oral Hygiene (QC): 6 Toileting Hygiene (QC): 6 Shower/Bathe Self (QC): 6 Upper Body Dressing (QC): 6 Lower Body Dressing (QC): 6 On/Off Footwear (QC): 6 Additional Goals: 1-Demonstrate ADL Tasks, 2-Verbalize Understanding, 3- ImproveStrength/Renny 1=Demonstrate adherence to instructed precautions during ADL tasks. 2=Patient will verbalize/demonstrate understanding of assistive devices/modifications for ADL. 3=Patient will improve strength/tolerance for activity to enable patient to perform ADL's. OT Education/Plan Problem List/Assessment Assessment: Decreased Activ Tolerance, Decreased UE Strength, Dependent Transfers, Impaired Bed Mobility, Impaired Self-Care Skills Discharge Recommendations Plan/Recommendations: Continue POC Treatment Plan/Plan of Care Patient would benefit from OT for education, treatment and training to promote independence in ADL's, mobility, safety and/or upper extremity function for ADL's. Plan of Care: ADL Retraining, Functional Mobility, Group Exercise/Act as Ind, UE Funct Exercise/Act Treatment Duration: Feb 18, 2020 Frequency: At least 5 of 7 days/Wk (IRF) Estimated Hrs Per Day: 1.5 hours per day Agreement: Yes Rehab Potential: Fair Time/GCodes Start Time: 09:00 Stop Time: 10:00 Total Time Billed (hr/min): 60 Billed Treatment Time 1 visit-FA 4 (60 min) co-treat with PT [id number] DENI GRISSOM Feb 10, 2020 10:11
[2020-02-10] MEDS: METHIMAZOLE 5 MG PO SCH (10:20)
[2020-02-10] MEDS: CYANOCOBALAMIN 1,000 MCG (VITAMIN B-12) TABLET PO SCH (10:20)
[2020-02-10] MEDS: VITAMIN D3 125 MCG (5,000 UNITS) CAPSULE PO SCH (10:20)
[2020-02-10] MEDS: MELOXICAM 7.5 MG (MOBIC) TABLET PO SCH (10:20)
[2020-02-10] MEDS: ASCORBIC ACID (VIT C) 500 MG TABLET PO SCH (10:21)
[2020-02-10] MEDS: VALSARTAN 160 MG (DIOVAN) TABLET PO SCH (10:21)
[2020-02-10] MEDS: DICLOFENAC 1% GEL 100 GM (VOLTAREN) TUBE TOP SCH ×4 (10:22→21:29)
[2020-02-10] MEDS: MICONAZOLE 2% POWDER (DESENEX AF) 90 GM TOP SCH ×2 (10:22→21:29)
[2020-02-10 16:21] VITALS: BP 109/52
[2020-02-10] MEDS: oxyCODONE/APAP 5/325MG (PERCOCET 5) TABLET PO PRN (18:10)
[2020-02-10] MEDS: PRAMIPEXOLE 0.125 MG (MIRAPEX) TABLET PO SCH (21:24)
[2020-02-10] MEDS: SERTRALINE 50 MG (ZOLOFT) TABLET PO SCH (21:31)
[2020-02-11 05:47] VITALS: BP 136/60
[2020-02-11] MEDS: CYANOCOBALAMIN 1,000 MCG (VITAMIN B-12) TABLET PO SCH (09:34)
[2020-02-11] MEDS: NIFEdipine ER 30 MG (PROCARDIA XL) TAB PO SCH (09:34)
[2020-02-11] MEDS: VITAMIN D3 125 MCG (5,000 UNITS) CAPSULE PO SCH (09:35)
[2020-02-11] MEDS: ALPRAZolam 0.25 MG (XANAX) TAB PO SCH ×2 (09:35→21:30)
[2020-02-11] MEDS: GABAPENTIN 300 MG (NEURONTIN) CAP PO SCH ×3 (09:35→21:29)
[2020-02-11] MEDS: LACTOBACILLUS ACIDOPHILUS (PROBIOTIC) CAPSULE PO SCH ×2 (09:35→21:29)
[2020-02-11] MEDS: METHIMAZOLE 5 MG PO SCH (09:35)
[2020-02-11] MEDS: VALSARTAN 160 MG (DIOVAN) TABLET PO SCH (09:35)
[2020-02-11] MEDS: DICLOFENAC 1% GEL 100 GM (VOLTAREN) TUBE TOP SCH ×4 (09:36→21:39)
[2020-02-11] MEDS: MELOXICAM 7.5 MG (MOBIC) TABLET PO SCH (09:36)
[2020-02-11] MEDS: MICONAZOLE 2% POWDER (DESENEX AF) 90 GM TOP SCH ×2 (09:36→21:41)
[2020-02-11] MEDS: PANTOPRAZOLE 40 MG (PROTONIX) TAB PO SCH ×2 (09:36→21:29)
[2020-02-11] MEDS: ASCORBIC ACID (VIT C) 500 MG TABLET PO SCH (09:36)
[2020-02-11] MEDS: SERTRALINE 100 MG (ZOLOFT) TAB PO SCH (09:36)
[2020-02-11] MEDS: DOCUSATE SODIUM 100 MG (COLACE) CAP PO SCH ×2 (09:37→21:49)
[2020-02-11] MEDS: polyethylene glycoL POWDER 17 GM (MIRALAX) PACK PO SCH ×2 (09:37→21:48)
[2020-02-11] MEDS: SENNA W/DOCUSATE (SENOKOT S) TABLET PO SCH ×2 (09:37→21:48)
[2020-02-11] MEDS: ENOXAPARIN 40 MG/0.4 ML (LOVENOX) SYR SC SCH (09:38)
[2020-02-11] MEDS: SILDENAFIL 20 MG (REVATIO) TAB NON-FORMULARY PO SCH ×2 (09:39→21:31)
[2020-02-11] MEDS: LIDOCAINE 4% (SALONPAS) PATCH TP SCH ×2 (09:41→21:37)
[2020-02-11] MEDS: ACETAMINOPHEN 650 MG PO SCH ×3 (09:43→21:38)
--- NOTE | 2020-02-11 11:46 | PM&R Progress Note ---
Subjective HPI/CC On Admission Date Seen by Provider: Feb 11, 2020 Time Seen by Provider: 10:00 Subjective/Events-last exam 02/11/20: Sit to stand working well for her Weakness improved Xanax helps her Patch and Voltaren helps her right knee 02/10/20: Had an ill episode earlier today Labs and c diff no acute issues Now resolved Doing well currently 02/09/20: NO issues Uses sit to stand well Very weak 02/08/20: Using sit to stand and doing very well Bowels moved today A lot of pain issues Requires a lot of care 02/07/20: Room air maintained O2 sat but with the minimal exertion she goes down into the 80 percent Discontinue Colestid Overall feels like she is doing much better Able to use the sit to stand pretty well 02/06/20: Has multiple little complaints DC PICC since it simply did not function properly DC Venofer O2 on 1L/min 02/05/20: Tearful at times Right knee pain is terrible at times Mobic will be restarted along with other home meds that have now been reviewed 02/04/20: Using sit to stand very well Heels are red so managing that O2 on/off 02/03/20: Oxycodone and Xanax ordered APAP Skateboard Standing with assist Memory loss noted Less edema right knee BM 02/02: Pt doing pretty well Participating in therapy Very motivated to improve Maintained on O2 2 liters 02/01/20: Right knee pain continues but considering the risk for complications from steroid injection after Covid, she will be managing Overall doing pretty well on 2 L of Oxygen Will replace Picc line since it was placed in the arm where she has had her pre vious mastectomy 01/31/20: Dr. Dent graciously agreed to see her for right knee pain and will initiate an injection Hgb 9.1 so midline will be placed with iron infusions 2 L of oxygen maintained After rounds Dr Dent updated me on the fact that no injection initiated due to high risk following COVID 01/30/20: Right knee pain continues Will reach out to Dr Dent tomorrow Tapazole restarted Midline needed for iron infusions Severe right knee pain 10/10 today so adjusted her pain meds and xray noted severe OA Dr Scott usually gives her a right knee injections every 3 months and she is overdue I will try to have ortho give pain injection Friday Tapazole not on her list and she has Graves disease she states O2 at 80% so will maintain 2L/min O2 Checking iron level since hgb 9.1 Adding TSH FT4 to labs BM today loose Review of Systems General: Fatigue, Malaise Musculoskeletal: leg pain Focused Exam Lactate Level 02/10/20 08:12: Lactic Acid Level 1.92 Objective Exam Vital Signs Vital Signs Date Time Temp Pulse Resp B/P (MAP) Pulse Ox O2 Delivery O2 Flow Rate FiO2 02/11/20 16:00 37.0 90 16 161/70 (100) 92 02/11/20 08:52 Nasal Cannula 1.00 Capillary Refill : Less Than 3 Seconds General Appearance: No Apparent Distress, WD/WN, Chronically ill HEENT: PERRL/EOMI, Normal ENT Inspection, Pharynx Normal Neck: Full Range of Motion, Normal Inspection, Non Tender, Supple, Carotid Bruit Respiratory: Chest Non Tender, Lungs Clear, No Accessory Muscle Use, No Respiratory Distress, Decreased Breath Sounds Cardiovascular: Regular Rate, Rhythm, No Edema, No Gallop, No JVD, No Murmur, Normal Peripheral Pulses Gastrointestinal: Normal Bowel Sounds, No Organomegaly, No Pulsatile Mass, Non Tender, Soft Back: Normal Inspection, No CVA Tenderness, No Vertebral Tenderness Extremity: Normal Capillary Refill, Normal Inspection, Normal Range of Motion, Non Tender, No Calf Tenderness, No Pedal Edema Neurologic/Psychiatric: Alert, Oriented x3, Normal Mood/Affect, overhead worker II-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 FIM Transfers Therapy Code Descriptions/Definitions Functional [place] Measure: 0=Not Assessed/NA 4=Minimal Assistance 1=Total Assistance 5=Supervision or Setup 2=Maximal Assistance 6=Modified [place] 3=Moderate Assistance 7=Complete IndependenceSCALE: Activities may be completed with or without assistive devices. 6-Pxuhkmpdeh-ahlpuzw completes the activity by him/herself with no assistance from a helper. 5-Set-up or Clean-up Assistance-helper sets up or cleans up; patient completes activity. [place] assists only prior to or following the activity. 4-Supervision or Touching Assistance-helper provides verbal cues and/or touching/steadying and/or contact guard assistance as patient completes activity. Assistance may be provided throughout the activity or intermittently. 3-Partial/Moderate Assistance-helper does LESS THAN HALF the effort. [place] lifts, holds or supports trunk or limbs, but provides less than half the effort. 2-Substantial/Maximal Assistance-helper does MORE THAN HALF the effort. [place] lifts or holds trunk or limbs and provides more than half the effort. 1-Bnrkcheld-gkpxun does ALL the effort. Patient does none of the effort to complete the activity. Or, the assistance of 2 or more helpers is required for the patient to complete the activity. If activity was not attempted, code reason: 7-Patient Refused. 9-Not Applicable-not attempted and the patient did not perform the activity before the current illness, exacerbation or injury. 10-Not Attempted due to Environmental Limitations-(lack of equipment, weather restraints, etc.). 88-Not Attempted due to Medical Conditions or Safety Concerns. Roll Left to Right (QC): 4 Sit to Lying (QC): 3 Sit to Stand (QC): 2 Chair/Han-xs-Qpwpa Xfer(QC): 2 Car Transfer (QC): 1 Gait Training Does the Patient Walk?: No and Walking Goal IS indicated Walk 10 feet (QC): 88 Walk 50 ft with 2 Turns(QC): 88 Walk 150 ft (QC): 88 Walking 10ft/uneven surface-QC: 88 Wheelchair Training Does the Pt Use a Wheelchair?: Yes Distance: 50'x2 Wheel 50 ft with 2 turns (QC): 3 Wheel 150 ft (QC): 4 Type of Wheelchair: Manual Stair Training 1 Step (curb) (QC): 88 4 Steps (QC): 88 12 Steps (QC): 88 Balance Picking up an Object (QC): 88 ADL-Treatment Eating (QC): 6 (Using clinical judgement, pt able to complete independently.) Oral Hygiene (QC): 6 Bathing Location: L Arm, R Arm, L Upper Leg, R Upper Leg, Chest, Abdomen Shower/Bathe Self (QC): 1 (Sit to stand lift to stand to cleanse buttocks.) Upper Body Dressing (QC): 5 Lower Body Dressing (QC): 1 On/Off Footwear (QC): 5 Toileting Hygiene (QC): 1 Toilet Transfer (QC): 1 Assessment/Plan Assessment and Plan Assess & Plan/Chief Complaint Assessment: Critical illness debility from COVID-19 dx 12/11/19 OA h/o breast cancer Allergic rhinitis HTN GERD Depression Lung nodules 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 Grave's disease Plan: IRF protocol Wean O2 Pain meds BM regimen 01/29/20: Restart Tapazole 5mg daily Knee injection by ortho will be pursued tomorrow O2 01/30/20: Right knee injection will be requested from Dr Dent Pain meds Tapazole O2 01/31/20: Knee injection not performed due to COVID related risk Monitor O2 Midline and Venofer 02/01/20: Monitor closely O2 wean IRF protocol 02/01/30: Monitor O2 Aggressive therapy 02/03/20: Stood with assist and parallel bars today Improved status IV Venofer after PICC changed 02/04/20: Monitor O2 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
[2020-02-11 16:00] VITALS: BP 161/70
[2020-02-11] MEDS: COLESTIPOL 1 GM (COLESTID) TAB PO PRN ×2 (16:27→21:30)
--- NOTE | 2020-02-11 19:11 | NUR ---
Bedside report received from CHET DEE, assume care of pt
[2020-02-11] MEDS: PRAMIPEXOLE 0.125 MG (MIRAPEX) TABLET PO SCH (21:29)
[2020-02-11] MEDS: oxyCODONE/APAP 5/325MG (PERCOCET 5) TABLET PO PRN (21:30)
--- NOTE | 2020-02-11 21:30 | NUR ---
pt refused Colace, Senokot & miralax, c/o neck & RT knee pain, level 8/10 on numeric scale, Percocet 5/325 1 tab given, encouraged to try to do more for herself
[2020-02-11] MEDS: SERTRALINE 50 MG (ZOLOFT) TABLET PO SCH (21:47)
--- NOTE | 2020-02-11 22:20 | NUR ---
Rates pain at 5/10 on numeric scale
[2020-02-12 05:22] VITALS: BP 134/81
[2020-02-12 05:28] VITALS: BP 139/63
--- NOTE | 2020-02-12 07:26 | NUR ---
C/O RT knee pain level 7/10 on numeric scale, Oxyir 5mg given
--- NOTE | 2020-02-12 07:28 | PM&R Progress Note ---
Subjective HPI/CC On Admission Date Seen by Provider: Feb 12, 2020 Time Seen by Provider: 13:45 Subjective/Events-last exam 02/12/20: Participating in therapy Sit to stand Monitor right knee pain 02/11/20: Sit to stand working well for her Weakness improved Xanax helps her Patch and Voltaren helps her right knee 02/10/20: Had an ill episode earlier today Labs and c diff no acute issues Now resolved Doing well currently 02/09/20: NO issues Uses sit to stand well Very weak 02/08/20: Using sit to stand and doing very well Bowels moved today A lot of pain issues Requires a lot of care 02/07/20: Room air maintained O2 sat but with the minimal exertion she goes down into the 80 percent Discontinue Colestid Overall feels like she is doing much better Able to use the sit to stand pretty well 02/06/20: Has multiple little complaints DC PICC since it simply did not function properly DC Venofer O2 on 1L/min 02/05/20: Tearful at times Right knee pain is terrible at times Mobic will be restarted along with other home meds that have now been reviewed 02/04/20: Using sit to stand very well Heels are red so managing that O2 on/off 02/03/20: Oxycodone and Xanax ordered APAP Skateboard Standing with assist Memory loss noted Less edema right knee BM 02/02: Pt doing pretty well Participating in therapy Very motivated to improve Maintained on O2 2 liters 02/01/20: Right knee pain continues but considering the risk for complications from steroid injection after Covid, she will be managing Overall doing pretty well on 2 L of Oxygen Will replace Picc line since it was placed in the arm where she has had her previous mastectomy 01/31/20: Dr. Dent graciously agreed to see her for right knee pain and will initiate an injection Hgb 9.1 so midline will be placed with iron infusions 2 L of oxygen maintained After rounds Dr Dent updated me on the fact that no injection initiated due to high risk following COVID 01/30/20: Right knee pain continues Will reach out to Dr Dent tomorrow Tapazole restarted Midline needed for iron infusions Severe right knee pain 10/10 today so adjusted her pain meds and xray noted severe OA Dr Scott usually gives her a right knee injections every 3 months and she is overdue I will try to have ortho give pain injection Friday Tapazole not on her list and she has Graves disease she states O2 at 80% so will maintain 2L/min O2 Checking iron level since hgb 9.1 Adding TSH FT4 to labs BM today loose Review of Systems General: Fatigue, Malaise Pulmonary: Dyspnea Musculoskeletal: leg pain Focused Exam Lactate Level 02/10/20 08:12: Lactic Acid Level 1.92 Objective Exam Vital Signs Vital Signs Date Time Temp Pulse Resp B/P (MAP) Pulse Ox O2 Delivery O2 Flow Rate FiO2 02/12/20 17:20 36.8 85 20 123/67 (85) 94 Nasal Cannula 1.00 Capillary Refill : Less Than 3 Seconds General Appearance: No Apparent Distress, WD/WN, Chronically ill HEENT: PERRL/EOMI, Normal ENT Inspection, Pharynx Normal Neck: Full Range of Motion, Normal Inspection, Non Tender, Supple, Carotid Bruit Respiratory: Chest Non Tender, Lungs Clear, No Accessory Muscle Use, No Respiratory Distress, Decreased Breath Sounds Cardiovascular: Regular Rate, Rhythm, No Edema, No Gallop, No JVD, No Murmur, Normal Peripheral Pulses Gastrointestinal: Normal Bowel Sounds, No Organomegaly, No Pulsatile Mass, Non Tender, Soft Back: Normal Inspection, No CVA Tenderness, No Vertebral Tenderness Extremity: Normal Capillary Refill, Normal Inspection, Normal Range of Motion, Non Tender, No Calf Tenderness, No Pedal Edema Neurologic/Psychiatric: Alert, Oriented x3, Normal Mood/Affect, peer counselor II-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 FIM Transfers Therapy Code Descriptions/Definitions Functional [place] Measure: 0=Not Assessed/NA 4=Minimal Assistance 1=Total Assistance 5=Supervision or Setup 2=Maximal Assistance 6=Modified [place] 3=Moderate Assistance 7=Complete IndependenceSCALE: Activities may be completed with or without assistive devices. 4-Tqtoczjars-eooddrk completes the activity by him/herself with no assistance from a helper. 5-Set-up or Clean-up Assistance-helper sets up or cleans up; patient completes activity. [place] assists only prior to or following the activity. 4-Supervision or Touching Assistance-helper provides verbal cues and/or touching/steadying and/or contact guard assistance as patient completes activity. Assistance may be provided throughout the activity or intermittently. 3-Partial/Moderate Assistance-helper does LESS THAN HALF the effort. [place] lifts, holds or supports trunk or limbs, but provides less than half the effort. 2-Substantial/Maximal Assistance-helper does MORE THAN HALF the effort. [place] lifts or holds trunk or limbs and provides more than half the effort. 0-Fdmgfnabp-yjdkzh does ALL the effort. Patient does none of the effort to complete the activity. Or, the assistance of 2 or more helpers is required for the patient to complete the activity. If activity was not attempted, code reason: 7-Patient Refused. 9-Not Applicable-not attempted and the patient did not perform the activity before the current illness, exacerbation or injury. 10-Not Attempted due to Environmental Limitations-(lack of equipment, weather restraints, etc.). 88-Not Attempted due to Medical Conditions or Safety Concerns. Roll Left to Right (QC): 4 Sit to Lying (QC): 3 Sit to Stand (QC): 2 Chair/Xxr-ds-Nygae Xfer(QC): 2 Car Transfer (QC): 1 Gait Training Does the Patient Walk?: No and Walking Goal IS indicated Walk 10 feet (QC): 88 Walk 50 ft with 2 Turns(QC): 88 Walk 150 ft (QC): 88 Walking 10ft/uneven surface-QC: 88 Wheelchair Training Does the Pt Use a Wheelchair?: Yes Distance: 50'x2 Wheel 50 ft with 2 turns (QC): 3 Wheel 150 ft (QC): 4 Type of Wheelchair: Manual Stair Training 1 Step (curb) (QC): 88 4 Steps (QC): 88 12 Steps (QC): 88 Balance Picking up an Object (QC): 88 ADL-Treatment Eating (QC): 6 (Using clinical judgement, pt able to complete independently.) Oral Hygiene (QC): 6 Bathing Location: L Arm, R Arm, L Upper Leg, R Upper Leg, Chest, Abdomen Shower/Bathe Self (QC): 1 (Sit to stand lift to stand to cleanse buttocks.) Upper Body Dressing (QC): 5 Lower Body Dressing (QC): 1 On/Off Footwear (QC): 5 Toileting Hygiene (QC): 1 Toilet Transfer (QC): 1 Assessment/Plan Assessment and Plan Assess & Plan/Chief Complaint Assessment: Critical illness debility from COVID-19 dx 12/11/19 OA h/o breast cancer Allergic rhinitis HTN GERD Depression Lung nodules [facility] 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 Grave's disease Plan: IRF protocol Wean O2 Pain meds BM regimen 01/29/20: Restart Tapazole 5mg daily Knee injection by ortho will be pursued tomorrow O2 01/30/20: Right knee injection will be requested from Dr Dent Pain meds Tapazole O2 01/31/20: Knee injection not performed due to COVID related risk Monitor O2 Midline and Venofer 02/01/20: Monitor closely O2 wean IRF protocol 02/01/30: Monitor O2 Aggressive therapy 02/03/20: Stood with assist and parallel bars today Improved status IV Venofer after PICC changed 02/04/20: Monitor O2 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
[2020-02-12] MEDS: VALSARTAN 160 MG (DIOVAN) TABLET PO SCH (09:21)
[2020-02-12] MEDS: LACTOBACILLUS ACIDOPHILUS (PROBIOTIC) CAPSULE PO SCH ×2 (09:21→22:27)
[2020-02-12] MEDS: MELOXICAM 7.5 MG (MOBIC) TABLET PO SCH (09:21)
[2020-02-12] MEDS: GABAPENTIN 300 MG (NEURONTIN) CAP PO SCH ×3 (09:22→22:28)
[2020-02-12] MEDS: NIFEdipine ER 30 MG (PROCARDIA XL) TAB PO SCH (09:23)
[2020-02-12] MEDS: PANTOPRAZOLE 40 MG (PROTONIX) TAB PO SCH ×2 (09:23→22:27)
[2020-02-12] MEDS: SILDENAFIL 20 MG (REVATIO) TAB NON-FORMULARY PO SCH ×2 (09:23→22:26)
[2020-02-12] MEDS: ACETAMINOPHEN 650 MG PO SCH ×3 (09:23→22:29)
[2020-02-12] MEDS: CYANOCOBALAMIN 1,000 MCG (VITAMIN B-12) TABLET PO SCH (09:25)
[2020-02-12] MEDS: SERTRALINE 100 MG (ZOLOFT) TAB PO SCH (09:25)
[2020-02-12] MEDS: METHIMAZOLE 5 MG PO SCH (09:25)
[2020-02-12] MEDS: ALPRAZolam 0.25 MG (XANAX) TAB PO SCH ×2 (09:25→22:27)
[2020-02-12] MEDS: VITAMIN D3 125 MCG (5,000 UNITS) CAPSULE PO SCH (09:25)
[2020-02-12] MEDS: ASCORBIC ACID (VIT C) 500 MG TABLET PO SCH (09:25)
[2020-02-12] MEDS: ENOXAPARIN 40 MG/0.4 ML (LOVENOX) SYR SC SCH (09:26)
[2020-02-12] MEDS: MICONAZOLE 2% POWDER (DESENEX AF) 90 GM TOP SCH ×2 (09:26→22:29)
[2020-02-12] MEDS: DICLOFENAC 1% GEL 100 GM (VOLTAREN) TUBE TOP SCH ×4 (09:26→22:28)
[2020-02-12] MEDS: LIDOCAINE 4% (SALONPAS) PATCH TP SCH ×2 (09:27→22:26)
[2020-02-12] MEDS: DOCUSATE SODIUM 100 MG (COLACE) CAP PO SCH ×2 (10:10→22:28)
[2020-02-12] MEDS: SENNA W/DOCUSATE (SENOKOT S) TABLET PO SCH ×2 (10:11→22:27)
[2020-02-12] MEDS: polyethylene glycoL POWDER 17 GM (MIRALAX) PACK PO SCH ×2 (10:11→22:00)
--- NOTE | 2020-02-12 10:28 | Occupational Ther Daily Note ---
OT Current Status-Daily Note Subjective Pt alert, sitting in recliner. Pt agrees to therapy. C/o pain 7/10, nrsg brought pain meds. Mental Status/Objective Patient Orientation: Person, Place, Time, Situation Attachments: Oxygen (1L) ADL-Treatment Pt agrees to shower. Pt requires sit to stand lift to complete all transfers. Pt transferred onto rolling shower chair with cutout then was transported to large shower room. Pt completed shower using shower chair with cutout, hand held shower and long handle sponge to bath all areas except buttocks/rosibel area. Pt requires assist to dry buttocks. After set up, pt completed upper body dressing by self. Pt able to thread underwear and pants over feet and pull up legs by self in sitting. Then using sit to stand lift, assist given to dry buttocks and hike pants over hips. Pt then was transported via w/c to room bathroom to complete oral care. Oral care independent. Pt then left in care of PT. All needs met in room. Therapy Code Descriptions/Definitions Functional [place] Measure: 0=Not Assessed/NA 4=Minimal Assistance 1=Total Assistance 5=Supervision or Setup 2=Maximal Assistance 6=Modified [place] 3=Moderate Assistance 7=Complete IndependenceSCALE: Activities may be completed with or without assistive devices. 6-Pvouzxykvo-kktkfbw completes the activity by him/herself with no assistance from a helper. 5-Set-up or Clean-up Assistance-helper sets up or cleans up; patient completes activity. [place] assists only prior to or following the activity. 4-Supervision or Touching Assistance-helper provides verbal cues and/or touching/steadying and/or contact guard assistance as patient completes activity. Assistance may be provided throughout the activity or intermittently. 3-Partial/Moderate Assistance-helper does LESS THAN HALF the effort. [place] lifts, holds or supports trunk or limbs, but provides less than half the effort. 2-Substantial/Maximal Assistance-helper does MORE THAN HALF the effort. [place] lifts or holds trunk or limbs and provides more than half the effort. 2-Rojjvtvdt-hlhufi does ALL the effort. Patient does none of the effort to complete the activity. Or, the assistance of 2 or more helpers is required for the patient to complete the activity. If activity was not attempted, code reason: 7-Patient Refused. 9-Not Applicable-not attempted and the patient did not perform the activity before the current illness, exacerbation or injury. 10-Not Attempted due to Environmental Limitations-(lack of equipment, weather restraints, etc.). 88-Not Attempted due to Medical Conditions or Safety Concerns. Eating (QC): 6 (Pt completes own set up and uses regular utensils to eat.) Oral Hygiene (QC): 6 Bathing Location: L Arm, R Arm, L Lower Leg (including foot) (washing only), R Lower Leg (including foot) (washing only), Chest, Abdomen Shower/Bathe Self (QC): 3 Upper Body Dressing (QC): 5 Lower Body Dressing (QC): 1 On/Off Footwear: 5 OT Short Term Goals Short Term Goals Time Frame: Feb 09, 2020 Toileting hygiene: 3 Lower body dressin Putting on/taking off footwear: 3 OT Senior Living Goals Senior Living Goals Time Frame: Feb 18, 2020 Eating (QC): 6 Oral Hygiene (QC): 6 Toileting Hygiene (QC): 6 Shower/Bathe Self (QC): 6 Upper Body Dressing (QC): 6 Lower Body Dressing (QC): 6 On/Off Footwear (QC): 6 Additional Goals: 1-Demonstrate ADL Tasks, 2-Verbalize Understanding, 3-Imp roveStrength/Renny 1=Demonstrate adherence to instructed precautions during ADL tasks. 2=Patient will verbalize/demonstrate understanding of assistive devices/modifications for ADL. 3=Patient will improve strength/tolerance for activity to enable patient to perform ADL's. OT Education/Plan Problem List/Assessment Assessment: Decreased Activ Tolerance, Decreased UE Strength, Dependent Transfers, Impaired Bed Mobility, Impaired Coordination, Impaired Funct Balance, Impaired I ADL's, Impaired Self-Care Skills Discharge Recommendations Plan/Recommendations: Continue POC Treatment Plan/Plan of Care Patient would benefit from OT for education, treatment and training to promote independence in ADL's, mobility, safety and/or upper extremity function for ADL's. Plan of Care: ADL Retraining, Functional Mobility, Group Exercise/Act as Ind, UE Funct Exercise/Act Treatment Duration: Feb 18, 2020 Frequency: At least 5 of 7 days/Wk (IRF) Estimated Hrs Per Day: 1.5 hours per day Agreement: Yes Rehab Potential: Fair Time/GCodes Start Time: 07:00 Stop Time: 08:00 Total Time Billed (hr/min): 60 Billed Treatment Time 1 visit-ADL 4 (60 min) DENI GRISSOM Feb 12, 2020 10:28
--- NOTE | 2020-02-12 12:28 | Therapy Group Daily Note ---
Therapy Daily Group Note Patient Education Topic Energy Cons Session Ratio (pt:therapist): 4:1 Goal of Session: Energy Conservation Tech. Goal Met for this Session: Yes Pt Benefit of Group: Contributions to Others, Improved Cognition, Recognition of Peers, Socialization Other/Notes Pt taken to [facility] common area via w/c. Pt stated orientation (name, where pt is from, and favorite holiday memory). Pt participated in socialization, and education on the 4 P's of energy conservation (plan, prioritize, position, and pace). Pt acknowledged education topics, recalling 2/4 "P's" as a group. Pt verbalized one technique they are going to use for energy conservation. Pt taken back to room, sit to stand lift transfer to recliner. Post tx, pt seated in recliner, call light in reach and all needs met. Start Time: 11:00 Stop Time: 12:00 Total Billed Treatment Time: 60 Total Billed Treatment 1, GRP ISIDRO MACIEL OT Feb 12, 2020 12:28
--- NOTE | 2020-02-12 12:34 | Physical Therapy Daily Note ---
PT Daily Note-Current Subjective States that she is doing okay. Transfers SCALE: Activities may be completed with or without assistive devices. 7-Zpxedlrllx-thcwhvf completes the activity by him/herself with no assistance from a helper. 5-Set-up or Clean-up Assistance-helper sets up or cleans up; patient completes a ctivity. [place] assists only prior to or following the activity. 4-Supervision or Touching Assistance-helper provides verbal cues and/or touching/steadying and/or contact guard assistance as patient completes activity. Assistance may be provided throughout the activity or intermittently. 3-Partial/Moderate Assistance-helper does LESS THAN HALF the effort. [place] lifts, holds or supports trunk or limbs, but provides less than half the effort. 2-Substantial/Maximal Assistance-helper does MORE THAN HALF the effort. [place] lifts or holds trunk or limbs and provides more than half the effort. 6-Hoahunpbv-apuyyf does ALL the effort. Patient does none of the effort to complete the activity. Or, the assistance of 2 or more helpers is required for the patient to complete the activity. If activity was not attempted, code reason: 7-Patient Refused. 9-Not Applicable-not attempted and the patient did not perform the activity before the current illness, exacerbation or injury. 10-Not Attempted due to Environmental Limitations-(lack of equipment, weather restraints, etc.). 88-Not Attempted due to Medical Conditions or Safety Concerns. Sit to Stand (QC): 2 Chair/Ogh-eb-Iupcx Xfer(QC): 2 Weight Bearing Full Weight Bearing Full Weight Bearing Exercises Seated Therapy Exercises: LE Protocol Seated Reps: 20 NuStep Minutes: 10 NuStep Workload: 1 Assessment Current Status: Good Progress The patient did well with transfer training today. PT Short Term Goals Short Term Goals Time Frame: Feb 04, 2020 Roll Left & Right: 4 Sit to lyin Lying to sitting on side of be: 3 Sit to stand: 3 Chair/aat-uy-vizud transfer: 3 Walk 10 feet: 3 PT Draw Machine Operator Goals [facility] Goals PT Draw Machine Operator Goals Time Frame: Feb 18, 2020 Roll Left & Right (QC): 6 Sit to Lying (QC): 4 Lying-Sitting on Side/Bed(QC): 4 Sit to Stand (QC): 3 ([place]) Chair/Ycw-yy-Vxoww Xfer(QC): 3 ([place]) Toilet Transfer (QC): 3 ([place]) Car Transfer (QC): 3 ([place]) Does the Patient Walk: No and Walking Goal IS indicated Walk 10 feet (QC): 3 Walk 50ft with 2 Turns (QC): 3 Walk 150 ft (QC): 88 Walking 10ft on Uneven Surface: 88 1 Step (curb) (QC): 88 4 Steps (QC): 88 12 Steps (QC): 88 Picking up an Object (QC): 88 Wheel 50 feet with 2 turns (QC: 6 Wheel 150 feet: 6 PT Plan Treatment/Plan Treatment Plan: Continue Plan of Care Treatment Plan: Bed Mobility, Education, Functional Activity Rneny, Functional Strength, Group Therapy, Gait, Safety, Therapeutic Exercise, Transfers Treatment Duration: Feb 18, 2020 Frequency: At least 5 of 7 days/Wk (IRF) Estimated Hrs Per Day: 1.5 hours per day Patient and/or Family Agrees t: Yes Time/GCodes Time In: 800 Time Out: 900 Total Billed Treatment Time: 60 Total Billed Treatment 1, EX x 30', FA x 30' ИРИНА MARI PT Feb 12, 2020 12:34
[2020-02-12 17:20] VITALS: BP 123/67
[2020-02-12] MEDS: PRAMIPEXOLE 0.125 MG (MIRAPEX) TABLET PO SCH (22:25)
[2020-02-12] MEDS: SERTRALINE 50 MG (ZOLOFT) TABLET PO SCH (22:27)
[2020-02-12] MEDS: MELATONIN 3 MG TABLET PO PRN (22:28)
[2020-02-13 05:50] VITALS: BP 116/56
--- NOTE | 2020-02-13 06:42 | PM&R Progress Note ---
Subjective HPI/CC On Admission Date Seen by Provider: Feb 13, 2020 Time Seen by Provider: 14:00 Subjective/Events-last exam 02/13/20: Stool softener will be changed to prn Imodium prn Today is 50st anniversary 02/12/20: Participating in therapy Sit to stand Monitor right knee pain 02/11/20: Sit to stand working well for her Weakness improved Xanax helps her Patch and Voltaren helps her right knee 02/10/20: Had an ill episode earlier today Labs and c diff no acute issues Now resolved Doing well currently 02/09/20: NO issues Uses sit to stand well Very weak 02/08/20: Using sit to stand and doing very well Bowels moved today A lot of pain issues Requires a lot of care 02/07/20: Room air maintained O2 sat but with the minimal exertion she goes down into the 80 percent Discontinue Colestid Overall feels like she is doing much better Able to use the sit to stand pretty well 02/06/20: Has multiple little complaints DC PICC since it simply did not function properly DC Venofer O2 on 1L/min 02/05/20: Tearful at times Right knee pain is terrible at times Mobic will be restarted along with other home meds that have now been reviewed 02/04/20: Using sit to stand very well Heels are red so managing that O2 on/off 02/03/20: Oxycodone and Xanax ordered APAP Skateboard Standing with assist Memory loss noted Less edema right knee BM 02/02: Pt doing pretty well Participating in therapy Very motivated to improve Maintained on O2 2 liters 02/01/20: Right knee pain continues but considering the risk for complications from steroi d injection after Covid, she will be managing Overall doing pretty well on 2 L of Oxygen Will replace Picc line since it was placed in the arm where she has had her previous mastectomy 01/31/20: Dr. Dent graciously agreed to see her for right knee pain and will initiate an injection Hgb 9.1 so midline will be placed with iron infusions 2 L of oxygen maintained After rounds Dr Dent updated me on the fact that no injection initiated due to high risk following COVID 01/30/20: Right knee pain continues Will reach out to Dr Dent tomorrow Tapazole restarted Midline needed for iron infusions Severe right knee pain 10/ today so adjusted her pain meds and xray noted severe OA Dr Scott usually gives her a right knee injections every 3 months and she is overdue I will try to have ortho give pain injection Friday Tapazole not on her list and she has Graves disease she states O2 at 80% so will maintain 2L/min O2 Checking iron level since hgb 9.1 Adding TSH FT4 to labs BM today loose Review of Systems General: Fatigue Neurological: Weakness, Incoordination Focused Exam Lactate Level Objective Exam Vital Signs Vital Signs Date Time Temp Pulse Resp B/P (MAP) Pulse Ox O2 Delivery O2 Flow Rate FiO2 02/13/20 17:30 37.0 88 20 134/62 (86) 93 Room Air 02/13/20 08:17 1.00 Capillary Refill : Less Than 3 Seconds General Appearance: No Apparent Distress, WD/WN, Chronically ill HEENT: PERRL/EOMI, Normal ENT Inspection, Pharynx Normal Neck: Full Range of Motion, Normal Inspection, Non Tender, Supple, Carotid Bruit Respiratory: Chest Non Tender, Lungs Clear, No Accessory Muscle Use, No Respiratory Distress, Decreased Breath Sounds Cardiovascular: Regular Rate, Rhythm, No Edema, No Gallop, No JVD, No Murmur, Normal Peripheral Pulses Gastrointestinal: Normal Bowel Sounds, No Organomegaly, No Pulsatile Mass, Non Tender, Soft Back: Normal Inspection, No CVA Tenderness, No Vertebral Tenderness Extremity: Normal Capillary Refill, Normal Inspection, Normal Range of Motion, Non Tender, No Calf Tenderness, No Pedal Edema Neurologic/Psychiatric: Alert, Oriented x3, Normal Mood/Affect, order picker/assembler II-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 FIM Transfers Therapy Code Descriptions/Definitions Functional [place] Measure: 0=Not Assessed/NA 4=Minimal Assistance 1=Total Assistance 5=Supervision or Setup 2=Maximal Assistance 6=Modified [place] 3=Moderate Assistance 7=Complete IndependenceSCALE: Activities may be completed with or without assistive devices. 6-Uluvizymfk-mdagmcq completes the activity by him/herself with no assistance from a helper. 5-Set-up or Clean-up Assistance-helper sets up or cleans up; patient completes activity. [place] assists only prior to or following the activity. 4-Supervision or Touching Assistance-helper provides verbal cues and/or touching/steadying and/or contact guard assistance as patient completes activity. Assistance may be provided throughout the activity or intermittently. 3-Partial/Moderate Assistance-helper does LESS THAN HALF the effort. [place] lifts, holds or supports trunk or limbs, but provides less than half the effort. 2-Substantial/Maximal Assistance-helper does MORE THAN HALF the effort. [place] lifts or holds trunk or limbs and provides more than half the effort. 1-Totcilfhj-hbycnu does ALL the effort. Patient does none of the effort to complete the activity. Or, the assistance of 2 or more helpers is required for the patient to complete the activity. If activity was not attempted, code reason: 7-Patient Refused. 9-Not Applicable-not attempted and the patient did not perform the activity before the current illness, exacerbation or injury. 10-Not Attempted due to Environmental Limitations-(lack of equipment, weather restraints, etc.). 88-Not Attempted due to Medical Conditions or Safety Concerns. Roll Left to Right (QC): 4 Sit to Lying (QC): 3 Sit to Stand (QC): 2 Chair/Dsx-ke-Dzkiz Xfer(QC): 2 Car Transfer (QC): 1 Gait Training Does the Patient Walk?: No and Walking Goal IS indicated Walk 10 feet (QC): 88 Walk 50 ft with 2 Turns(QC): 88 Walk 150 ft (QC): 88 Walking 10ft/uneven surface-QC: 88 Wheelchair Training Does the Pt Use a Wheelchair?: Yes Distance: 50'x2 Wheel 50 ft with 2 turns (QC): 3 Wheel 150 ft (QC): 4 Type of Wheelchair: Manual Stair Training 1 Step (curb) (QC): 88 4 Steps (QC): 88 12 Steps (QC): 88 Balance Picking up an Object (QC): 88 ADL-Treatment Eating (QC): 6 (Pt completes own set up and uses regular utensils to eat.) Oral Hygiene (QC): 6 Bathing Location: L Arm, R Arm, L Lower Leg (including foot) (washing only), R Lower Leg (including foot) (washing only), Chest, Abdomen Shower/Bathe Self (QC): 3 Upper Body Dressing (QC): 5 Lower Body Dressing (QC): 1 On/Off Footwear (QC): 5 Toileting Hygiene (QC): 1 Toilet Transfer (QC): 1 Assessment/Plan Assessment and Plan Assess & Plan/Chief Complaint Assessment: Critical illness debility from COVID-19 dx 12/11/19 OA h/o breast cancer Allergic rhinitis HTN GERD Depression Lung nodules [facility] 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 since detention stable Grave's disease Plan: IRF protocol Wean O2 Pain meds BM regimen 01/29/20: Restart Tapazole 5mg daily Knee injection by ortho will be pursued tomorrow O2 01/30/20: Right knee injection will be requested from Dr Dent Pain meds Tapazole O2 01/31/20: Knee injection not performed due to COVID related risk Monitor O2 Midline and Venofer 02/01/20: Monitor closely O2 wean IRF protocol 02/01/30: Monitor O2 Aggressive therapy 02/03/20: Stood with assist and parallel bars today Improved status IV Venofer after PICC changed 02/04/20: Monitor O2 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
[2020-02-13] MEDS: ALPRAZolam 0.25 MG (XANAX) TAB PO SCH ×2 (09:13→20:27)
[2020-02-13] MEDS: ASCORBIC ACID (VIT C) 500 MG TABLET PO SCH (09:13)
[2020-02-13] MEDS: VITAMIN D3 125 MCG (5,000 UNITS) CAPSULE PO SCH (09:13)
[2020-02-13] MEDS: CYANOCOBALAMIN 1,000 MCG (VITAMIN B-12) TABLET PO SCH (09:14)
[2020-02-13] MEDS: NIFEdipine ER 30 MG (PROCARDIA XL) TAB PO SCH (09:14)
[2020-02-13] MEDS: SERTRALINE 100 MG (ZOLOFT) TAB PO SCH (09:14)
[2020-02-13] MEDS: GABAPENTIN 300 MG (NEURONTIN) CAP PO SCH ×3 (09:14→20:28)
[2020-02-13] MEDS: MELOXICAM 7.5 MG (MOBIC) TABLET PO SCH (09:14)
[2020-02-13] MEDS: PANTOPRAZOLE 40 MG (PROTONIX) TAB PO SCH ×2 (09:14→20:29)
[2020-02-13] MEDS: VALSARTAN 160 MG (DIOVAN) TABLET PO SCH (09:14)
[2020-02-13] MEDS: LACTOBACILLUS ACIDOPHILUS (PROBIOTIC) CAPSULE PO SCH ×2 (09:14→20:27)
[2020-02-13] MEDS: SILDENAFIL 20 MG (REVATIO) TAB NON-FORMULARY PO SCH ×2 (09:16→20:26)
[2020-02-13] MEDS: ENOXAPARIN 40 MG/0.4 ML (LOVENOX) SYR SC SCH (09:16)
[2020-02-13] MEDS: LIDOCAINE 4% (SALONPAS) PATCH TP SCH ×2 (09:16→20:25)
[2020-02-13] MEDS: MICONAZOLE 2% POWDER (DESENEX AF) 90 GM TOP SCH ×2 (09:17→20:26)
[2020-02-13] MEDS: ACETAMINOPHEN 650 MG PO SCH ×3 (09:17→20:26)
[2020-02-13] MEDS: DICLOFENAC 1% GEL 100 GM (VOLTAREN) TUBE TOP SCH ×4 (09:17→20:26)
[2020-02-13] MEDS: polyethylene glycoL POWDER 17 GM (MIRALAX) PACK PO SCH (09:26)
[2020-02-13] MEDS: SENNA W/DOCUSATE (SENOKOT S) TABLET PO SCH (09:26)
[2020-02-13] MEDS: DOCUSATE SODIUM 100 MG (COLACE) CAP PO SCH (09:26)
[2020-02-13] MEDS: METHIMAZOLE 5 MG PO SCH (09:43)
[2020-02-13 17:30] VITALS: BP 134/62
--- NOTE | 2020-02-13 18:45 | NUR ---
PT REQUESTED STOOL SOFTENERS TO BE CHANGED TO PRN RATHER THAN SCHEDULED, D/T FREQUENT STOOLS THIS MORNING. DR. HURD WAS NOTIFIED OF THIS, & APPROVED.
--- NOTE | 2020-02-13 18:52 | NUR ---
PT REQUESTED WEEKLY PREMARIN MED TO BE AT HS INSTEAD OF 1800, STATES, "THAT'S WHAT I DO AT HOME, IT WORKS BETTER FOR ME."
[2020-02-13] MEDS: ESTROGENS CONJ. CREAM 30 GM (PREMARIN) TUBE PV SCH (20:25)
[2020-02-13] MEDS: SERTRALINE 50 MG (ZOLOFT) TABLET PO SCH (20:27)
[2020-02-13] MEDS: oxyCODONE/APAP 5/325MG (PERCOCET 5) TABLET PO PRN (20:28)
[2020-02-13] MEDS: PRAMIPEXOLE 0.125 MG (MIRAPEX) TABLET PO SCH (20:29)
[2020-02-13] MEDS: MELATONIN 3 MG TABLET PO PRN (20:29)
[2020-02-14 06:00] VITALS: BP 129/77
[2020-02-14 06:20] LABS: BASOPHILS % (AUTO) 1 % (0-10); EOSINOPHILS # (AUTO) 0.2 10^3/uL (0.0-0.3); EOSINOPHILS % (AUTO) 5 % (0-10); HEMATOCRIT 34 % (35-52); HEMOGLOBIN 9.7 g/dL (11.5-16.0); LYMPHOCYTES # (AUTO) 1.2 10^3/uL (1.0-4.0); LYMPHOCYTES % (AUTO) 22 % (12-44); MEAN CORPUSCULAR HEMOGLOBIN 29 pg (25-34); MEAN CORPUSCULAR HGB CONC 29 g/dL (32-36); MEAN CORPUSCULAR VOLUME 101 fL (80-99); MEAN PLATELET VOLUME 10.7 fL (9.0-12.2); MONOCYTES # (AUTO) 0.5 10^3/uL (0.0-1.0); MONOCYTES % (AUTO) 9 % (0-12); NEUTROPHILS # (AUTO) 3.4 10^3/uL (1.8-7.8); NEUTROPHILS % (AUTO) 64 % (42-75); PLATELET COUNT 215 10^3/uL (130-400); WHITE BLOOD COUNT 5.3 10^3/uL (4.3-11.0)
--- NOTE | 2020-02-14 06:21 | PM&R Progress Note ---
Subjective HPI/CC On Admission Date Seen by Provider: Feb 14, 2020 Time Seen by Provider: 09:00 Subjective/Events-last exam 02/14/20: Pain pill will be given at 6 am to help therapy Hgb good at 9.7 Overall looks pretty good Much improved 02/13/20: Stool softener will be changed to prn Imodium prn Today is 50st anniversary 02/12/20: Participating in therapy Sit to stand Monitor right knee pain 02/11/20: Sit to stand working well for her Weakness improved Xanax helps her Patch and Voltaren helps her right knee 02/10/20: Had an ill episode earlier today Labs and c diff no acute issues Now resolved Doing well currently 02/09/20: NO issues Uses sit to stand well Very weak 02/08/20: Using sit to stand and doing very well Bowels moved today A lot of pain issues Requires a lot of care 02/07/20: Room air maintained O2 sat but with the minimal exertion she goes down into the 80 percent Discontinue Colestid Overall feels like she is doing much better Able to use the sit to stand pretty well 02/06/20: Has multiple little complaints DC PICC since it simply did not function properly DC Venofer O2 on 1L/min 02/05/20: Tearful at times Right knee pain is terrible at times Mobic will be restarted along with other home meds that have now been reviewed 02/04/20: Using sit to stand very well Heels are red so managing that O2 on/off 02/03/20: Oxycodone and Xanax ordered APAP Skateboard Standing with assist Memory loss noted Less edema right knee BM 02/02: Pt doing pretty well Participating in therapy Very motivated to improve Maintained on O2 2 liters 02/01/20: Right knee pain continues but considering the risk for complications from steroid injection after Covid, she will be managing Overall doing pretty well on 2 L of Oxygen Will replace Picc line since it was placed in the arm where she has had her previous mastectomy 01/31/20: Dr. Dent graciously agreed to see her for right knee pain and will initiate an injection Hgb 9.1 so midline will be placed with iron infusions 2 L of oxygen maintained After rounds Dr Dent updated me on the fact that no injection initiated due to high risk following COVID 01/30/20: Right knee pain continues Will reach out to Dr Dent tomorrow Tapazole restarted Midline needed for iron infusions Severe right knee pain 11/26 today so adjusted her pain meds and xray noted severe OA Dr Scott usually gives her a right knee injections every 3 months and she is overdue I will try to have ortho give pain injection Friday Tapazole not on her list and she has Graves disease she states O2 at 80% so will maintain 2L/min O2 Checking iron level since hgb 9.1 Adding TSH FT4 to labs BM today loose Review of Systems General: Fatigue, Malaise Objective Exam Vital Signs Vital Signs Date Time Temp Pulse Resp B/P (MAP) Pulse Ox O2 Delivery O2 Flow Rate FiO2 02/14/20 20:30 95 Nasal Cannula 1.00 02/14/20 18:00 37.2 88 20 133/67 (89) Capillary Refill : Less Than 3 Seconds General Appearance: No Apparent Distress, WD/WN, Chronically ill HEENT: PERRL/EOMI, Normal ENT Inspection, Pharynx Normal Neck: Full Range of Motion, Normal Inspection, Non Tender, Supple, Carotid Bruit Respiratory: Chest Non Tender, Lungs Clear, No Accessory Muscle Use, No Respiratory Distress, Decreased Breath Sounds Cardiovascular: Regular Rate, Rhythm, No Edema, No Gallop, No JVD, No Murmur, Normal Peripheral Pulses Gastrointestinal: Normal Bowel Sounds, No Organomegaly, No Pulsatile Mass, Non Tender, Soft Back: Normal Inspection, No CVA Tenderness, No Vertebral Tenderness Extremity: Normal Capillary Refill, Normal Inspection, Normal Range of Motion, Non Tender, No Calf Tenderness, No Pedal Edema Neurologic/Psychiatric: Alert, Oriented x3, Normal Mood/Affect, commercial internship II-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 FIM Transfers Therapy Code Descriptions/Definitions Functional [place] Measure: 0=Not Assessed/NA 4=Minimal Assistance 1=Total Assistance 5=Supervision or Setup 2=Maximal Assistance 6=Modified [place] 3=Moderate Assistance 7=Complete IndependenceSCALE: Activities may be completed with or without assistive devices. 4-Ayryddxryr-zquravc completes the activity by him/herself with no assistance from a helper. 5-Set-up or Clean-up Assistance-helper sets up or cleans up; patient completes activity. [place] assists only prior to or following the activity. 4-Supervision or Touching Assistance-helper provides verbal cues and/or touching/steadying and/or contact guard assistance as patient completes activity. Assistance may be provided throughout the activity or intermittently. 3-Partial/Moderate Assistance-helper does LESS THAN HALF the effort. [place] lifts, holds or supports trunk or limbs, but provides less than half the effort. 2-Substantial/Maximal Assistance-helper does MORE THAN HALF the effort. [place] lifts or holds trunk or limbs and provides more than half the effort. 7-Euhwytyyy-kqslga does ALL the effort. Patient does none of the effort to complete the activity. Or, the assistance of 2 or more helpers is required for the patient to complete the activity. If activity was not attempted, code reason: 7-Patient Refused. 9-Not Applicable-not attempted and the patient did not perform the activity before the current illness, exacerbation or injury. 10-Not Attempted due to Environmental Limitations-(lack of equipment, weather restraints, etc.). 88-Not Attempted due to Medical Conditions or Safety Concerns. Roll Left to Right (QC): 4 Sit to Lying (QC): 3 Sit to Stand (QC): 2 Chair/Oim-um-Nlzsm Xfer(QC): 2 Car Transfer (QC): 1 Gait Training Does the Patient Walk?: No and Walking Goal IS indicated Walk 10 feet (QC): 88 Walk 50 ft with 2 Turns(QC): 88 Walk 150 ft (QC): 88 Walking 10ft/uneven surface-QC: 88 Wheelchair Training Does the Pt Use a Wheelchair?: Yes Distance: 50'x2 Wheel 50 ft with 2 turns (QC): 3 Wheel 150 ft (QC): 4 Type of Wheelchair: Manual Stair Training 1 Step (curb) (QC): 88 4 Steps (QC): 88 12 Steps (QC): 88 Balance Picking up an Object (QC): 88 ADL-Treatment Eating (QC): 6 (Pt completes own set up and uses regular utensils to eat.) Oral Hygiene (QC): 6 Bathing Location: L Arm, R Arm, L Lower Leg (including foot) (washing only), R Lower Leg (including foot) (washing only), Chest, Abdomen Shower/Bathe Self (QC): 3 Upper Body Dressing (QC): 5 Lower Body Dressing (QC): 1 On/Off Footwear (QC): 5 Toileting Hygiene (QC): 1 Toilet Transfer (QC): 1 Assessment/Plan Assessment and Plan Assess & Plan/Chief Complaint Assessment: Critical illness debility from COVID-19 dx 12/11/19 OA h/o breast cancer Allergic rhinitis HTN GERD Depression Lung nodules [facility] 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 since jail stable Grave's disease Plan: IRF protocol Wean O2 Pain meds BM regimen 01/29/20: Restart Tapazole 5mg daily Knee injection by ortho will be pursued tomorrow O2 01/30/20: Right knee injection will be requested from Dr Dent Pain meds Tapazole O2 01/31/20: Knee injection not performed due to COVID related risk Monitor O2 Midline and Venofer 02/01/20: Monitor closely O2 wean IRF protocol 02/01/30: Monitor O2 Aggressive therapy 02/03/20: Stood with assist and parallel bars today Improved status IV Venofer after PICC changed 02/04/20: Monitor O2 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 02/05/20: O2 Mobic Home meds 02/06/20: DC PICC since it simply did not function properly O2 02/07/20: Monitor closely O2 wean Sit to stand 02/08/20: Participation good Monitor pain 02/09/20: Sit to stand Continue therapy 02/10/20: Labs reviewed Monitor illness closely 02/11/20: Monitor closely Pain control right knee 02/12/20: Monitor right knee pain O2 Increase activity 02/13/20: Imodium prn Sit to stand Right knee pain 02/14/20: Monitor closely Monitor pain (1) Myopathy (2) COVID-19 (3) GERD (gastroesophageal reflux disease) (4) Hypoxia (5) HX: breast cancer (6) Anxiety (7) Depression JARRELL HURD DO Feb 14, 2020 06:21
[2020-02-14 06:43] LABS: ALANINE AMINOTRANSFERASE < 6 U/L (0-55); ALKALINE PHOSPHATASE 32 U/L (40-136); BILIRUBIN,TOTAL 0.3 MG/DL (0.1-1.0); BUN/CREATININE RATIO 16; CALCIUM 9.2 MG/DL (8.5-10.1); CARBON DIOXIDE 25 MMOL/L (21-32); CHLORIDE 112 MMOL/L (98-107); CREATININE SERUM 0.63 MG/DL (0.60-1.30); GFR ESTIMATED > 60; GLUCOSE 83 MG/DL (70-105); POTASSIUM 3.9 MMOL/L (3.6-5.0); SODIUM 144 MMOL/L (135-145); TOTAL PROTEIN 5.5 GM/DL (6.4-8.2)
[2020-02-14] MEDS: LACTOBACILLUS ACIDOPHILUS (PROBIOTIC) CAPSULE PO SCH ×2 (08:19→21:03)
[2020-02-14] MEDS: VALSARTAN 160 MG (DIOVAN) TABLET PO SCH (08:19)
[2020-02-14] MEDS: SERTRALINE 100 MG (ZOLOFT) TAB PO SCH (08:19)
[2020-02-14] MEDS: ALPRAZolam 0.25 MG (XANAX) TAB PO SCH ×2 (08:19→21:04)
[2020-02-14] MEDS: ENOXAPARIN 40 MG/0.4 ML (LOVENOX) SYR SC SCH (08:19)
[2020-02-14] MEDS: LIDOCAINE 4% (SALONPAS) PATCH TP SCH ×2 (08:19→21:02)
[2020-02-14] MEDS: VITAMIN D3 125 MCG (5,000 UNITS) CAPSULE PO SCH (08:19)
[2020-02-14] MEDS: MELOXICAM 7.5 MG (MOBIC) TABLET PO SCH (08:20)
[2020-02-14] MEDS: NIFEdipine ER 30 MG (PROCARDIA XL) TAB PO SCH (08:20)
[2020-02-14] MEDS: ASCORBIC ACID (VIT C) 500 MG TABLET PO SCH (08:20)
[2020-02-14] MEDS: METHIMAZOLE 5 MG PO SCH (08:20)
[2020-02-14] MEDS: CYANOCOBALAMIN 1,000 MCG (VITAMIN B-12) TABLET PO SCH (08:20)
[2020-02-14] MEDS: PANTOPRAZOLE 40 MG (PROTONIX) TAB PO SCH ×2 (08:20→21:04)
[2020-02-14] MEDS: SILDENAFIL 20 MG (REVATIO) TAB NON-FORMULARY PO SCH ×2 (08:22→21:03)
[2020-02-14] MEDS: GABAPENTIN 300 MG (NEURONTIN) CAP PO SCH ×3 (08:22→21:03)
--- NOTE | 2020-02-14 09:00 | Physical Therapy Daily Note ---
PT Daily Note-Current Subjective Patient in WC pre tx, agrees to PT, has unrated pain in right knee (gets meds from nurse during tx), will be co-treating with OT due to poor patient mobility, strength, endurance, severe SOB with activity, safety and reduce risk of falls, the need to coordinate UE and LE during activity. Appearance Patient in recliner post tx with nurse call, phone, tray, all needs met. Mental Status Patient Orientation: Normal For Age Attachments: Oxygen Transfers SCALE: Activities may be completed with or without assistive devices. 9-Qhxnbknqyd-xejprvu completes the activity by him/herself with no assistance from a helper. 5-Set-up or Clean-up Assistance-helper sets up or cleans up; patient completes activity. [place] assists only prior to or following the activity. 4-Supervision or Touching Assistance-helper provides verbal cues and/or touchin g/steadying and/or contact guard assistance as patient completes activity. Assistance may be provided throughout the activity or intermittently. 3-Partial/Moderate Assistance-helper does LESS THAN HALF the effort. [place] lifts, holds or supports trunk or limbs, but provides less than half the effort. 2-Substantial/Maximal Assistance-helper does MORE THAN HALF the effort. [place] lifts or holds trunk or limbs and provides more than half the effort. 1-Jdtjrjvpu-jdwifh does ALL the effort. Patient does none of the effort to complete the activity. Or, the assistance of 2 or more helpers is required for the patient to complete the activity. If activity was not attempted, code reason: 7-Patient Refused. 9-Not Applicable-not attempted and the patient did not perform the activity before the current illness, exacerbation or injury. 10-Not Attempted due to Environmental Limitations-(lack of equipment, weather restraints, etc.). 88-Not Attempted due to Medical Conditions or Safety Concerns. Sit to Stand (QC): 2 Chair/Xtp-ja-Nhgky Xfer(QC): 2 In WC in room, propel to therapy gym, stand x3 in parallel bars (mod to max assist) two times for 1 min and one time for 1min 25 sec. Exercises in parallel bars, then WC to room and transfer to recliner. Weight Bearing Full Weight Bearing Full Weight Bearing Wheelchair Training Does the Pt Use a Wheelchair?: Yes Wheel 50 ft with 2 turns (QC): 4 Wheel 150 ft (QC): 4 Type of Wheelchair: Manual 150', very slow, many rest breaks due to fatigue, needs cues on technique to turn WC Exercises Seated Therapy Exercises: Ankle pumps, Long arc quads, Hip abd/add (with ball and RTB) Treatments PT performed transfers, WC mobility, standing, LE exercise, OT performed UE exercise, UE positioning and safety during activity. Assessment Current Status: Fair Progress slowly improving strength but not enough to make much of a difference in functional mobility PT Short Term Goals Short Term Goals Time Frame: Feb 04, 2020 Roll Left & Right: 4 Sit to lyin Lying to sitting on side of be: 3 Sit to stand: 3 Chair/wmk-mh-tptgx transfer: 3 Walk 10 feet: [address] Scan Special Procedures Technologist Goals Custodial Goals PT Custodial Goals Time Frame: Feb 18, 2020 Roll Left & Right (QC): 6 Sit to Lying (QC): 4 Lying-Sitting on Side/Bed(QC): 4 Sit to Stand (QC): 3 ([place]) Chair/Wzp-br-Ekfvr Xfer(QC): 3 ([place]) Toilet Transfer (QC): 3 ([place]) Car Transfer (QC): 3 ([place]) Does the Patient Walk: No and Walking Goal IS indicated Walk 10 feet (QC): 3 Walk 50ft with 2 Turns (QC): 3 Walk 150 ft (QC): 88 Walking 10ft on Uneven Surface: 88 1 Step (curb) (QC): 88 4 Steps (QC): 88 12 Steps (QC): 88 Picking up an Object (QC): 88 Wheel 50 feet with 2 turns (QC: 6 Wheel 150 feet: 6 PT Plan Problem List Problem List: Activity Tolerance, Functional Strength, Safety, Balance, Gait, Transfer, Bed Mobility, ROM Treatment/Plan Treatment Plan: Continue Plan of Care Treatment Plan: Bed Mobility, Education, Functional Activity Renny, Functional Strength, Group Therapy, Gait, Safety, Therapeutic Exercise, Transfers Treatment Duration: Feb 18, 2020 Frequency: At least 5 of 7 days/Wk (IRF) Estimated Hrs Per Day: 1.5 hours per day Patient and/or Family Agrees t: Yes Safety Risks/Education Patient Education: Transfer Techniques, Correct Positioning, W/C Management, Safety Issues Teaching Recipient: Patient Teaching Methods: Demonstration, Discussion Response to Teaching: Reinforcement Needed Time/GCodes Time In: 0800 Time Out: 09 Total Billed Treatment Time: 60 Total Billed Treatment 1 visit EX 10' FA 50' co-treated for 60' MAYTE BENAVIDEZ PT Feb 14, 2020 09:00
--- NOTE | 2020-02-14 09:01 | Occupational Ther Daily Note ---
OT Current Status-Daily Note Subjective Pt alert, lying in bed. Pt agrees to therapy. Pt c/o pain, did not rate. Reported to nrsg, brought pain meds. Mental Status/Objective Patient Orientation: Person, Place, Time, Situation Attachments: Oxygen (1L) ADL-Treatment Pt declines shower today, agrees to sponge bath. Pt requests to use BSC. CGA and verbal cues to roll toward R side then pt dropped feet off of EOB and HOB raised to allow pt to come up to sitting EOB. Pt sat EOB independently. Pt completed sponge bath, able to reach all areas, if R foot is propped up, pt able to reach rosibel area and buttocks sitting on BSC. Pt donned shirt by self after set up. Pt able to use tanker truck driver to thread clothing over feet while sitting on BSC. Using sit to stand lift to stand while hygiene after BM completed by ALEXANDER then pt hiked pants over hips. Therapy Code Descriptions/Definitions Functional [place] Measure: 0=Not Assessed/NA 4=Minimal Assistance 1=Total Assistance 5=Supervision or Setup 2=Maximal Assistance 6=Modified [place] 3=Moderate Assistance 7=Complete IndependenceSCALE: Activities may be completed with or without assistive devices. 5-Njuwxmccdk-guqycef completes the activity by him/herself with no assistance from a helper. 5-Set-up or Clean-up Assistance-helper sets up or cleans up; patient completes activity. [place] assists only prior to or following the activity. 4-Supervision or Touching Assistance-helper provides verbal cues and/or touching/steadying and/or contact guard assistance as patient completes activity. Assistance may be provided throughout the activity or intermittently. 3-Partial/Moderate Assistance-helper does LESS THAN HALF the effort. [place] lifts, holds or supports trunk or limbs, but provides less than half the effort. 2-Substantial/Maximal Assistance-helper does MORE THAN HALF the effort. [place] lifts or holds trunk or limbs and provides more than half the effort. 9-Emfgbhkun-ywzmsh does ALL the effort. Patient does none of the effort to complete the activity. Or, the assistance of 2 or more helpers is required for the patient to complete the activity. If activity was not attempted, code reason: 7-Patient Refused. 9-Not Applicable-not attempted and the patient did not perform the activity before the current illness, exacerbation or injury. 10-Not Attempted due to Environmental Limitations-(lack of equipment, weather restraints, etc.). 88-Not Attempted due to Medical Conditions or Safety Concerns. Bathing Location: L Arm, R Arm, L Upper Leg, R Upper Leg, L Lower Leg (including foot) (assist to prop up), R Lower Leg (including foot) (assist to prop up), Chest, Abdomen, Buttocks, Perineal Area Shower/Bathe Self (QC): 3 Upper Body Dressing (QC): 5 Lower Body Dressing (QC): 2 On/Off Footwear: 5 Toileting Hygiene (QC): 1 Toilet Transfer (QC): 1 Other Treatment PT/OT co-treat ([id number]), skills of 2 clinicians required for coordination and skilled instruction of bathing, functional transfers and sit to stands. PT focusing on transfers, sit to stand and LE strengthening. OT focusing on ADLs, B UE placement during transfers, w/c mobility and sit to stand. Pt completed own w/c mobility from room <--> therapy gym by self with multiple recovery breaks. Pt completed 3 standing at parallel bars 1 min or more each, using less assistance. See PT note for progress. Using sit to stand lift for all transfers. PT did complete SPT with pt at end of session from w/c to recliner. After session, pt sitting in recliner with call light/phone in reach. All needs met in room. OT Short Term Goals Short Term Goals Time Frame: Feb 09, 2020 Toileting hygiene: 3 Lower body dressin Putting on/taking off footwear: 3 OT Alf Goals Alf Goals Time Frame: Feb 18, 2020 Eating (QC): 6 Oral Hygiene (QC): 6 Toileting Hygiene (QC): 6 Shower/Bathe Self (QC): 6 Upper Body Dressing (QC): 6 Lower Body Dressing (QC): 6 On/Off Footwear (QC): 6 Additional Goals: 1-Demonstrate ADL Tasks, 2-Verbalize Understanding, 3-Im proveStrength/Renny 1=Demonstrate adherence to instructed precautions during ADL tasks. 2=Patient will verbalize/demonstrate understanding of assistive devices/modifications for ADL. 3=Patient will improve strength/tolerance for activity to enable patient to perform ADL's. OT Education/Plan Problem List/Assessment Assessment: Decreased Activ Tolerance, Decreased UE Strength, Impaired Coordination, Impaired Funct Balance, Impaired Self-Care Skills Discharge Recommendations Plan/Recommendations: Continue POC Treatment Plan/Plan of Care Patient would benefit from OT for education, treatment and training to promote independence in ADL's, mobility, safety and/or upper extremity function for ADL's. Plan of Care: ADL Retraining, Functional Mobility, Group Exercise/Act as Ind, UE Funct Exercise/Act Treatment Duration: Feb 18, 2020 Frequency: At least 5 of 7 days/Wk (IRF) Estimated Hrs Per Day: 1.5 hours per day Agreement: Yes Rehab Potential: Fair Time/GCodes Start Time: 07:30 Stop Time: 09:00 Total Time Billed (hr/min): 90 Billed Treatment Time 1 visit-ADL 3 (45 min) FA 3 (45 min) co-treat with PT [id number], individually [id number] DENI GRISSOM Feb 14, 2020 09:01
[2020-02-14] MEDS: ACETAMINOPHEN 650 MG PO SCH ×3 (09:38→21:08)
[2020-02-14] MEDS: MICONAZOLE 2% POWDER (DESENEX AF) 90 GM TOP SCH ×2 (09:38→21:02)
[2020-02-14] MEDS: DICLOFENAC 1% GEL 100 GM (VOLTAREN) TUBE TOP SCH ×4 (09:39→21:01)
[2020-02-14] MEDS: COLESTIPOL 1 GM (COLESTID) TAB PO PRN (14:03)
--- NOTE | 2020-02-14 14:42 | Physical Therapy Daily Note ---
PT Daily Note-Current Subjective Patient in bed pre tx, agrees to PT, has no complaints of pain but says she is very tired. Appearance Patient in bed post tx with nurse call, phone, tray, all needs met. Mental Status Patient Orientation: Person, Place, Situation Attachments: Oxygen Transfers SCALE: Activities may be completed with or without assistive devices. 0-Tiibfnngcw-qmdpfjs completes the activity by him/herself with no assistance from a helper. 5-Set-up or Clean-up Assistance-helper sets up or cleans up; patient completes activity. [place] assists only prior to or following the activity. 4-Supervision or Touching Assistance-helper provides verbal cues and/or touching/steadying and/or contact guard assistance as patient completes activity. Assistance may be provided throughout the activity or intermittently. 3-Partial/Moderate Assistance-helper does LESS THAN HALF the effort. [place] lifts, holds or supports trunk or limbs, but provides less than half the effort. 2-Substantial/Maximal Assistance-helper does MORE THAN HALF the effort. [place] lifts or holds trunk or limbs and provides more than half the effort. 9-Cpvelhxly-bbbgev does ALL the effort. Patient does none of the effort to complete the activity. Or, the assistance of 2 or more helpers is required for the patient to complete the activity. If activity was not attempted, code reason: 7-Patient Refused. 9-Not Applicable-not attempted and the patient did not perform the activity before the current illness, exacerbation or injury. 10-Not Attempted due to Environmental Limitations-(lack of equipment, weather restraints, etc.). 88-Not Attempted due to Medical Conditions or Safety Concerns. Weight Bearing Full Weight Bearing Full Weight Bearing Exercises Supine Ex: Ankle pumps, Quad Set, Glut sets, Heel Slides (AAROM), Short Arc Quads, Straight leg raise (AAROM), Hip abd/add (AAROM) Supine Reps: 20 Treatments LE exercise Assessment Current Status: Fair Progress very slowly improving endurance PT Short Term Goals Short Term Goals Time Frame: Feb 04, 2020 Roll Left & Right: 4 Sit to lyin Lying to sitting on side of be: 3 Sit to stand: 3 Chair/ved-hp-edqji transfer: 3 Walk 10 feet: 3 PT Racket Stringer Goals Racket Stringer Goals PT Care Home Goals Time Frame: Feb 18, 2020 Roll Left & Right (QC): 6 Sit to Lying (QC): 4 Lying-Sitting on Side/Bed(QC): 4 Sit to Stand (QC): 3 ([place]) Chair/Cfe-yu-Hiilv Xfer(QC): 3 ([place]) Toilet Transfer (QC): 3 ([place]helby) Car Transfer (QC): 3 ([place]) Does the Patient Walk: No and Walking Goal IS indicated Walk 10 feet (QC): 3 Walk 50ft with 2 Turns (QC): 3 Walk 150 ft (QC): 88 Walking 10ft on Uneven Surface: 88 1 Step (curb) (QC): 88 4 Steps (QC): 88 12 Steps (QC): 88 Picking up an Object (QC): 88 Wheel 50 feet with 2 turns (QC: 6 Wheel 150 feet: 6 PT Plan Problem List Problem List: Activity Tolerance, Functional Strength, Safety, Balance, Gait, Transfer, Bed Mobility, ROM Treatment/Plan Treatment Plan: Continue Plan of Care Treatment Plan: Bed Mobility, Education, Functional Activity Renny, Functional Strength, Group Therapy, Gait, Safety, Therapeutic Exercise, Transfers Treatment Duration: Feb 18, 2020 Frequency: At least 5 of 7 days/Wk (IRF) Estimated Hrs Per Day: 1.5 hours per day Patient and/or Family Agrees t: Yes Safety Risks/Education Patient Education: Correct Positioning, Safety Issues Teaching Recipient: Patient Teaching Methods: Demonstration, Discussion Response to Teaching: Reinforcement Needed Time/GCodes Time In: 1415 Time Out: 1445 Total Billed Treatment Time: 30 Total Billed Treatment 1 visit EX 30' MAYTE BENAVIDEZ PT Feb 14, 2020 14:42
--- NOTE | 2020-02-14 15:19 | Speech Therapy Daily Note ---
Speech Daily Progress Note Subjective Date Seen by Provider: Feb 14, 2020 Time Seen by Provider: 00:30 Patient resting in her bed this afternoon. Patient states she is feeling better with her stomach issues. Objective Patient completed sequencing activity with cards of activities she may encounter at home with 80% accuracy given minimal cues. Assessment Assessment Current Status: Good Progress Treatment Plan Continue Plan of Care Speech Short Term Goals Short Term Goals Short Term Goals 1) Patient will follow/recall multi step directions for wheelchair mobility without cues at 90% or greater. 2) Patient will recall sequencing for daily activities without cues at 90% or greater. Speech Grounds Crew Supervisor Goals Senior Care Goals Patient will demonstrate safety awareness with all daily activities and pr ocesses. Speech-Plan Patient/Family Goals Patient/Family Goals: Patient plans on returning home where she lives with her . Treatment Plan Speech Therapy Treatment Plan: Continue Plan of Care Treatment Duration: Jan 31, 2020 Frequency: 4 times per week (Patient will receive ST 4-5x per week) Estimated Hrs Per Day: .5 hour per day Rehab Potential: Fair Barriers to Learning: Patient's lengthy illness, age Pt/Family Agrees to Plan: Yes Safety Risks/Education Teaching Recipient: Patient Teaching Methods: Demonstration, Discussion Response to Teaching: Verbalize Understanding, Return Demonstration Education Topics Provided: Continued safety and following directions Time Speech Therapy Time In: 15:00 Speech Therapy Time Out: 15:30 Total Billed Time: 30 Billed Treatment Time MILLIE Crane [address] Feb 14, 2020 15:19
--- NOTE | 2020-02-14 15:51 | NUR ---
CM/SS CONCURRENT DOCUMENTATION Patient's spouse requested ramp specs, insurance writer called him to discuss then sent as email attachment. He indicates his son contacted [employer] and they will discuss whether they can build the ramp and within what timelines. Emergency Preparedness Coordinator encouraged him to move forward with the discussion since the ramp is a barrier to patient's discharge to home. Provided cell phone number for return contact.
[2020-02-14 18:00] VITALS: BP 133/67
--- NOTE | 2020-02-14 18:01 | NUR ---
"RD ASSESSMENT PMHx: pneumonia; COVID; hypercholesterolemia; HTN; GERD; hypothyroidism; CA(breast) PT INTERACTION: Pt was awake and pleasant during nutrition follow-up. Pt states she has been eating well since last assessment. Note avg PO intake >75% x4d, per chart review. Pt states some issues with diarrhea since last assessment. Note last BM was 02/12, and pt currently on bowel regimen of colace BID, senna BID, and miralax BID, per chart review. ABNORMAL NUTRITION-RELATED LAB VALUES LOW: alkphos 32; Pro 5.5; alb 3.0; HIGH: Cl 112; Est. kcal needs: 0863-0675 kcal | 15-20 kcal/kg Est. Pro needs: 78-94 g Pro | 1.0-1.2 g Pro/kg PES STATEMENT: Inadequate oral intake (NI-2.1) related to constipation, as evidenced by pt interview, and avg PO intake 69% x4d. INTERVENTION: Continue with current diet order of Regular diet. Will continue to follow and reassess as pt needs, intake, and status change. Patricia LIMA, MS RD LD [phone] cell"
[2020-02-14] MEDS: PRAMIPEXOLE 0.125 MG (MIRAPEX) TABLET PO SCH (21:03)
[2020-02-14] MEDS: oxyCODONE/APAP 5/325MG (PERCOCET 5) TABLET PO PRN (21:04)
[2020-02-14] MEDS: MELATONIN 3 MG TABLET PO PRN (21:04)
[2020-02-14] MEDS: SERTRALINE 50 MG (ZOLOFT) TABLET PO SCH (21:04)
--- NOTE | 2020-02-15 05:59 | PM&R Progress Note ---
Subjective HPI/CC On Admission Date Seen by Provider: Feb 15, 2020 Time Seen by Provider: 08:30 Subjective/Events-last exam 02/15/20: Sit to stand is very helpful Family education tomorrow with to see if he can manage the sit to stand May not be an option to go home 02/14/20: Pain pill will be given at 6 am to help therapy Hgb good at 9.7 Overall looks pretty good Much improved 02/13/20: Stool softener will be changed to prn Imodium prn Today is 50 anniversary 02/12/20: Participating in therapy Sit to stand Monitor right knee pain 02/11/20: Sit to stand working well for her Weakness improved Xanax helps her Patch and Voltaren helps her right knee 02/10/20: Had an ill episode earlier today Labs and c diff no acute issues Now resolved Doing well currently 02/09/20: NO issues Uses sit to stand well Very weak 02/08/20: Using sit to stand and doing very well Bowels moved today A lot of pain issues Requires a lot of care 02/07/20: Room air maintained O2 sat but with the minimal exertion she goes down into the 80 percent Discontinue Colestid Overall feels like she is doing much better Able to use the sit to stand pretty well 02/06/20: Has multiple little complaints DC PICC since it simply did not function properly DC Venofer O2 on 1L/min 02/05/20: Tearful at times Right knee pain is terrible at times Mobic will be restarted along with other home meds that have now been reviewed 02/04/20: Using sit to stand very well Heels are red so managing that O2 on/off 02/03/20: Oxycodone and Xanax ordered APAP Skateboard Standing with assist Memory loss noted Less edema right knee BM 02/02: Pt doing pretty well Participating in therapy Very motivated to improve Maintained on O2 2 liters 02/01/20: Right knee pain continues but considering the risk for complications from steroid injection after Covid, she will be managing Overall doing pretty well on 2 L of Oxygen Will replace Picc line since it was placed in the arm where she has had her previous mastectomy 01/31/20: Dr. Dent graciously agreed to see her for right knee pain and will initiate an injection Hgb 9.1 so midline will be placed with iron infusions 2 L of oxygen maintained After rounds Dr Dent updated me on the fact that no injection initiated due to high risk following COVID 01/30/20: Right knee pain continues Will reach out to Dr Dent tomorrow Tapazole restarted Midline needed for iron infusions Severe right knee pain / today so adjusted her pain meds and xray noted severe OA Dr Scott usually gives her a right knee injections every 3 months and she is overdue I will try to have ortho give pain injection Friday Tapazole not on her list and she has Graves disease she states O2 at 80% so will maintain 2L/min O2 Checking iron level since hgb 9.1 Adding TSH FT4 to labs BM today loose Review of Systems General: Fatigue, Malaise Objective Exam Vital Signs Vital Signs Date Time Temp Pulse Resp B/P (MAP) Pulse Ox O2 Delivery O2 Flow Rate FiO2 02/16/20 05:30 37.0 74 18 139/69 (92) 95 Nasal Cannula 1.00 Capillary Refill : Less Than 3 Seconds General Appearance: No Apparent Distress, WD/WN, Chronically ill HEENT: PERRL/EOMI, Normal ENT Inspection, Pharynx Normal Neck: Full Range of Motion, Normal Inspection, Non Tender, Supple, Carotid Bruit Respiratory: Chest Non Tender, Lungs Clear, No Accessory Muscle Use, No Respiratory Distress, Decreased Breath Sounds Cardiovascular: Regular Rate, Rhythm, No Edema, No Gallop, No JVD, No Murmur, Normal Peripheral Pulses Gastrointestinal: Normal Bowel Sounds, No Organomegaly, No Pulsatile Mass, Non Tender, Soft Back: Normal Inspection, No CVA Tenderness, No Vertebral Tenderness Extremity: Normal Capillary Refill, Normal Inspection, Normal Range of Motion, Non Tender, No Calf Tenderness, No Pedal Edema Neurologic/Psychiatric: Alert, Oriented x3, Normal Mood/Affect, sales facilitator II-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 FIM Transfers Therapy Code Descriptions/Definitions Functional [place] Measure: 0=Not Assessed/NA 4=Minimal Assistance 1=Total Assistance 5=Supervision or Setup 2=Maximal Assistance 6=Modified [place] 3=Moderate Assistance 7=Complete IndependenceSCALE: Activities may be completed with or without assistive devices. 7-Eprqufvlmm-pctnkyi completes the activity by him/herself with no assistance from a helper. 5-Set-up or Clean-up Assistance-helper sets up or cleans up; patient completes activity. [place] assists only prior to or following the activity. 4-Supervision or Touching Assistance-helper provides verbal cues and/or touching/steadying and/or contact guard assistance as patient completes act ivity. Assistance may be provided throughout the activity or intermittently. 3-Partial/Moderate Assistance-helper does LESS THAN HALF the effort. [place] lifts, holds or supports trunk or limbs, but provides less than half the effort. 2-Substantial/Maximal Assistance-helper does MORE THAN HALF the effort. [place] lifts or holds trunk or limbs and provides more than half the effort. 6-Ystkmwiia-rdatug does ALL the effort. Patient does none of the effort to complete the activity. Or, the assistance of 2 or more helpers is required for the patient to complete the activity. If activity was not attempted, code reason: 7-Patient Refused. 9-Not Applicable-not attempted and the patient did not perform the activity before the current illness, exacerbation or injury. 10-Not Attempted due to Environmental Limitations-(lack of equipment, weather restraints, etc.). 88-Not Attempted due to Medical Conditions or Safety Concerns. Roll Left to Right (QC): 4 Sit to Lying (QC): 3 Sit to Stand (QC): 2 Chair/Ndg-mo-Vlbwj Xfer(QC): 2 Car Transfer (QC): 1 Gait Training Does the Patient Walk?: No and Walking Goal IS indicated Walk 10 feet (QC): 88 Walk 50 ft with 2 Turns(QC): 88 Walk 150 ft (QC): 88 Walking 10ft/uneven surface-QC: 88 Wheelchair Training Does the Pt Use a Wheelchair?: Yes Distance: 50'x2 Wheel 50 ft with 2 turns (QC): 4 Wheel 150 ft (QC): 4 Type of Wheelchair: Manual Stair Training 1 Step (curb) (QC): 88 4 Steps (QC): 88 12 Steps (QC): 88 Balance Picking up an Object (QC): 88 ADL-Treatment Eating (QC): 6 (Pt completes own set up and uses regular utensils to eat.) Oral Hygiene (QC): 6 Bathing Location: L Arm, R Arm, L Upper Leg, R Upper Leg, L Lower Leg (including foot) (assist to prop up), R Lower Leg (including foot) (assist to prop up), Chest, Abdomen, Buttocks, Perineal Area Shower/Bathe Self (QC): 3 Upper Body Dressing (QC): 5 Lower Body Dressing (QC): 2 On/Off Footwear (QC): 5 Toileting Hygiene (QC): 1 Toilet Transfer (QC): 1 Assessment/Plan Assessment and Plan Assess & Plan/Chief Complaint Assessment: Critical illness debility from COVID-19 dx 12/11/19 OA h/o breast cancer Allergic rhinitis HTN GERD Depression Lung nodules [facility] 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 since 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 Grave's disease Plan: IRF protocol Wean O2 Pain meds BM regimen 01/29/20: Restart Tapazole 5mg daily Knee injection by ortho will be pursued tomorrow O2 01/30/20: Right knee injection will be requested from Dr Dent Pain meds Tapazole O2 01/31/20: Knee injection not performed due to COVID related risk Monitor O2 Midline and Venofer 02/01/20: Monitor closely O2 wean IRF protocol 02/01/30: Monitor O2 Aggressive therapy 02/03/20: Stood with assist and parallel bars today Improved status IV Venofer after PICC changed 02/04/20: Monitor O2 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 02/05/20: O2 Mobic Home meds 02/06/20: DC PICC since it simply did not function properly O2 02/07/20: Monitor closely O2 wean Sit to stand 02/08/20: Participation good Monitor pain 02/09/20: Sit to stand Continue therapy 02/10/20: Labs reviewed Monitor illness closely 02/11/20: Monitor closely Pain control right knee 02/12/20: Monitor right knee pain O2 Increase activity 02/13/20: Imodium prn Sit to stand Right knee pain 02/14/20: Monitor closely Monitor pain 02/15/20: Family education with sit to stand to see if home is an option (1) Myopathy (2) COVID-19 (3) GERD (gastroesophageal reflux disease) (4) Hypoxia (5) HX: breast cancer (6) Anxiety (7) Depression JARRELL HURD DO Feb 15, 2020 05:59
[2020-02-15 06:20] VITALS: BP 131/72
[2020-02-15] MEDS: LIDOCAINE 4% (SALONPAS) PATCH TP SCH ×2 (08:28→20:14)
[2020-02-15] MEDS: DICLOFENAC 1% GEL 100 GM (VOLTAREN) TUBE TOP SCH ×4 (08:28→20:14)
[2020-02-15] MEDS: MICONAZOLE 2% POWDER (DESENEX AF) 90 GM TOP SCH ×2 (08:28→20:14)
[2020-02-15] MEDS: ENOXAPARIN 40 MG/0.4 ML (LOVENOX) SYR SC SCH (08:28)
[2020-02-15] MEDS: METHIMAZOLE 5 MG PO SCH (08:29)
[2020-02-15] MEDS: NIFEdipine ER 30 MG (PROCARDIA XL) TAB PO SCH (08:29)
[2020-02-15] MEDS: CYANOCOBALAMIN 1,000 MCG (VITAMIN B-12) TABLET PO SCH (08:29)
[2020-02-15] MEDS: LACTOBACILLUS ACIDOPHILUS (PROBIOTIC) CAPSULE PO SCH ×2 (08:29→20:11)
[2020-02-15] MEDS: MELOXICAM 7.5 MG (MOBIC) TABLET PO SCH (08:29)
[2020-02-15] MEDS: PANTOPRAZOLE 40 MG (PROTONIX) TAB PO SCH ×2 (08:29→20:11)
[2020-02-15] MEDS: ASCORBIC ACID (VIT C) 500 MG TABLET PO SCH (08:29)
[2020-02-15] MEDS: GABAPENTIN 300 MG (NEURONTIN) CAP PO SCH ×3 (08:29→20:11)
[2020-02-15] MEDS: VALSARTAN 160 MG (DIOVAN) TABLET PO SCH (08:29)
[2020-02-15] MEDS: VITAMIN D3 125 MCG (5,000 UNITS) CAPSULE PO SCH (08:30)
[2020-02-15] MEDS: SERTRALINE 100 MG (ZOLOFT) TAB PO SCH (08:30)
[2020-02-15] MEDS: ALPRAZolam 0.25 MG (XANAX) TAB PO SCH ×2 (08:30→20:11)
[2020-02-15] MEDS: SILDENAFIL 20 MG (REVATIO) TAB NON-FORMULARY PO SCH ×2 (08:31→20:11)
[2020-02-15] MEDS: ACETAMINOPHEN 650 MG PO SCH ×3 (08:31→20:13)
--- NOTE | 2020-02-15 08:47 | Occupational Ther Daily Note ---
OT Current Status-Daily Note Subjective Pt alert, lying in bed. Pt agrees to therapy. No c/o pain at this time. Mental Status/Objective Patient Orientation: Person, Place, Time, Situation Attachments: Oxygen (1L) ADL-Treatment Pt declines shower, agrees to sponge bath. Pt able to roll to R side then raising HOB push to sit EOB. Using sit to stand lift pt able to transfer to and from all surfaces. Pt able to assist with placing sling correctly. Pt transferred to [facility] to [place]ting and sponge bath. With R LE propped up, pt able to reach rosibel area and buttocks to cleanse. Pt cleansed all other areas after set up, using long handle sponge to reach feet. Using firer portable boiler to assist with threading underwear over feet then threaded pants without AE over feet and pulled up B LE. Using sit to stand lift to stand, pt able to hike pants over hips. Pt donned/doffed upper body clothing by self after set up. Pt dons/doffs shoes by self. Transported pt via w/c to bathroom to complete oral care independently. Therapy Code Descriptions/Definitions Functional [place] Measure: 0=Not Assessed/NA 4=Minimal Assistance 1=Total Assistance 5=Supervision or Setup 2=Maximal Assistance 6=Modified [place] 3=Moderate Assistance 7=Complete IndependenceSCALE: Activities may be completed with or without assistive devices. 4-Rwcmkozokf-ggqmodx completes the activity by him/herself with no assistance from a helper. 5-Set-up or Clean-up Assistance-helper sets up or cleans up; patient completes activity. [place] assists only prior to or following the activity. 4-Supervision or Touching Assistance-helper provides verbal cues and/or touching/steadying and/or contact guard assistance as patient completes activity. Assistance may be provided throughout the activity or intermittently. 3-Partial/Moderate Assistance-helper does LESS THAN HALF the effort. [place] lifts, holds or supports trunk or limbs, but provides less than half the effort. 2-Substantial/Maximal Assistance-helper does MORE THAN HALF the effort. [place] lifts or holds trunk or limbs and provides more than half the effort. 7-Hdddghwnz-olebhm does ALL the effort. Patient does none of the effort to complete the activity. Or, the assistance of 2 or more helpers is required for the patient to complete the activity. If activity was not attempted, code reason: 7-Patient Refused. 9-Not Applicable-not attempted and the patient did not perform the activity before the current illness, exacerbation or injury. 10-Not Attempted due to Environmental Limitations-(lack of equipment, weather restraints, etc.). 88-Not Attempted due to Medical Conditions or Safety Concerns. Eating (QC): 6 (Pt set own meal up and used regular utensils to eat.) Oral Hygiene (QC): 6 Bathing Location: L Arm, R Arm, L Upper Leg, R Upper Leg, L Lower Leg (including foot), R Lower Leg (including foot), Chest, Abdomen, Buttocks, Perineal Area Shower/Bathe Self (QC): 5 Upper Body Dressing (QC): 5 Lower Body Dressing (QC): 3 (Assist to don/doff HANNAH hose) On/Off Footwear: 5 Toileting Hygiene (QC): 5 Toilet Transfer (QC): 1 Other Treatment Pt propelled w/c to therapy gym without recovery breaks. B UE exercise with arm bike completed with minimal resistance for 8 min to increase activity tolerance and strength for daily functional tasks. Pt required 3 recovery breaks during the 8 min. Pt given medium resistance therapy sponge to strengthening gross and fine motor hand strength. After therapy, pt sitting in recliner with feet elevated due to increased edema. Call light/phone in reach. All needs met in room. OT Short Term Goals Short Term Goals Time Frame: Feb 09, 2020 Toileting hygiene: 3 Lower body dressin Putting on/taking off footwear: 3 OT Long-Term Goals Director [employer]quisition Goals Time Frame: Feb 18, 2020 Eating (QC): 6 Oral Hygiene (QC): 6 Toileting Hygiene (QC): 6 Shower/Bathe Self (QC): 6 Upper Body Dressing (QC): 6 Lower Body Dressing (QC): 6 On/Off Footwear (QC): 6 Additional Goals: 1-Demonstrate ADL Tasks, 2-Verbalize Understanding, 3- ImproveStrength/Renny 1=Demonstrate adherence to instructed precautions during ADL tasks. 2=Patient will verbalize/demonstrate understanding of assistive devices/modifications for ADL. 3=Patient will improve strength/tolerance for activity to enable patient to perform ADL's. OT Education/Plan Problem List/Assessment Assessment: Decreased Activ Tolerance, Decreased UE Strength, Impaired Bed Mobility, Impaired Funct Balance, Impaired Self-Care Skills Discharge Recommendations Plan/Recommendations: Continue POC Treatment Plan/Plan of Care Patient would benefit from OT for education, treatment and training to promote independence in ADL's, mobility, safety and/or upper extremity function for ADL's. Plan of Care: ADL Retraining, Functional Mobility, Group Exercise/Act as Ind, UE Funct Exercise/Act Treatment Duration: Feb 18, 2020 Frequency: At least 5 of 7 days/Wk (IRF) Estimated Hrs Per Day: 1.5 hours per day Agreement: Yes Rehab Potential: Fair Time/GCodes Start Time: 07:15 Stop Time: 08:45 Total Time Billed (hr/min): 90 Billed Treatment Time 1 visit-ADL 5 (70 min) EX 1 (20 min) DENI GRISSOM Feb 15, 2020 08:47
--- NOTE | 2020-02-15 10:54 | Physical Therapy Daily Note ---
PT Daily Note-Current Subjective Patient in recliner pre tx, agrees to PT, has no complaints of pain at rest. Patient states she needs to use the restroom, transfers to commode with max assist, second person helps pull down her pants during the transfer. When done, therapist stands her with max assist while PT tech cleans patient and pulls up pants and then transfers to . Appearance Patient in bed post tx with nurse call, phone, tray, all needs met, legs on pillows with heel float. Mental Status Patient Orientation: Normal For Age Attachments: Oxygen Transfers SCALE: Activities may be completed with or without assistive devices. 2-Aukwalafum-bzbqplo completes the activity by him/herself with no assistance from a helper. 5-Set-up or Clean-up Assistance-helper sets up or cleans up; patient completes activity. [place] assists only prior to or following the activity. 4-Supervision or Touching Assistance-helper provides verbal cues and/or touching/steadying and/or contact guard assistance as patient completes activity. Assistance may be provided throughout the activity or intermittently. 3-Partial/Moderate Assistance-helper does LESS THAN HALF the effort. [place] lifts, holds or supports trunk or limbs, but provides less than half the effort. 2-Substantial/Maximal Assistance-helper does MORE THAN HALF the effort. [place] lifts or holds trunk or limbs and provides more than half the effort. 0-Ahtpcdead-yzjfvw does ALL the effort. Patient does none of the effort to complete the activity. Or, the assistance of 2 or more helpers is required for the patient to complete the activity. If activity was not attempted, code reason: 7-Patient Refused. 9-Not Applicable-not attempted and the patient did not perform the activity before the current illness, exacerbation or injury. 10-Not Attempted due to Environmental Limitations-(lack of equipment, weather restraints, etc.). 88-Not Attempted due to Medical Conditions or Safety Concerns. Roll Left & Right (QC): 4 Sit to Lying (QC): 3 Sit to Stand (QC): 2 Chair/Dna-td-Fqnpw Xfer(QC): 2 Toilet Transfer (QC): 2 Weight Bearing Full Weight Bearing Full Weight Bearing Wheelchair Training Does the Pt Use a Wheelchair?: Yes Wheel 50 ft with 2 turns (QC): 4 Wheel 150 ft (QC): 4 Type of Wheelchair: Manual 150'x2, very slow, needs several rest breaks due to fatigue and SOB Exercises standing in parallel bars x3 for 1 min, 2 min, 3 min. Treatments transfers, bed mobility, toileting, WC mobility, standing Assessment Current Status: Fair Progress improving LE strength PT Short Term Goals Short Term Goals Time Frame: Feb 04, 2020 Roll Left & Right: 4 Sit to lyin Lying to sitting on side of be: 3 Sit to stand: 3 Chair/vya-fe-snipk transfer: 3 Walk 10 feet: 3 PT Change Attendant Goals Change Attendant Goals PT Snf Goals Time Frame: Feb 18, 2020 Roll Left & Right (QC): 6 Sit to Lying (QC): 4 Lying-Sitting on Side/Bed(QC): 4 Sit to Stand (QC): 3 ([place]helby) Chair/Bqo-wo-Aqaui Xfer(QC): 3 ([place]helby) Toilet Transfer (QC): 3 ([place]helby) Car Transfer (QC): 3 ([place]) Does the Patient Walk: No and Walking Goal IS indicated Walk 10 feet (QC): 3 Walk 50ft with 2 Turns (QC): 3 Walk 150 ft (QC): 88 Walking 10ft on Uneven Surface: 88 1 Step (curb) (QC): 88 4 Steps (QC): 88 12 Steps (QC): 88 Picking up an Object (QC): 88 Wheel 50 feet with 2 turns (QC: 6 Wheel 150 feet: 6 PT Plan Problem List Problem List: Activity Tolerance, Functional Strength, Safety, Balance, Gait, Transfer, Bed Mobility, ROM Treatment/Plan Treatment Plan: Continue Plan of Care Treatment Plan: Bed Mobility, Education, Functional Activity Renny, Functional Strength, Group Therapy, Gait, Safety, Therapeutic Exercise, Transfers Treatment Duration: Feb 18, 2020 Frequency: At least 5 of 7 days/Wk (IRF) Estimated Hrs Per Day: 1.5 hours per day Patient and/or Family Agrees t: Yes Safety Risks/Education Patient Education: Transfer Techniques, Correct Positioning, W/C Management, Safety Issues Teaching Recipient: Patient Teaching Methods: Demonstration, Discussion Response to Teaching: Reinforcement Needed Time/GCodes Time In: 1000 Time Out: 1100 Total Billed Treatment Time: 60 Total Billed Treatment 1 visit FA Chidi' MAYTE BENAVIDEZ PT Feb 15, 2020 10:54
--- NOTE | 2020-02-15 13:16 | Physical Therapy Daily Note ---
PT Daily Note-Current Subjective Patient in bed pre tx, agrees to PT, has no complaints of pain. Appearance Patient in bed post tx with nurse call, phone, tray, all needs met. Mental Status Patient Orientation: Person, Place, Situation Attachments: Oxygen Transfers SCALE: Activities may be completed with or without assistive devices. 9-Uouwewqmkb-lxbfnbr completes the activity by him/herself with no assistance from a helper. 5-Set-up or Clean-up Assistance-helper sets up or cleans up; patient completes activity. [place] assists only prior to or following the activity. 4-Supervision or Touching Assistance-helper provides verbal cues and/or touching/steadying and/or contact guard assistance as patient completes activity. Assistance may be provided throughout the activity or intermittently. 3-Partial/Moderate Assistance-helper does LESS THAN HALF the effort. [place] lifts, holds or supports trunk or limbs, but provides less than half the effort. 2-Substantial/Maximal Assistance-helper does MORE THAN HALF the effort. [place] lifts or holds trunk or limbs and provides more than half the effort. 6-Qjxnmqmts-mtokml does ALL the effort. Patient does none of the effort to complete the activity. Or, the assistance of 2 or more helpers is required for the patient to complete the activity. If activity was not attempted, code reason: 7-Patient Refused. 9-Not Applicable-not attempted and the patient did not perform the activity before the current illness, exacerbation or injury. 10-Not Attempted due to Environmental Limitations-(lack of equipment, weather restraints, etc.). 88-Not Attempted due to Medical Conditions or Safety Concerns. Weight Bearing Full Weight Bearing Full Weight Bearing Exercises Supine Ex: Ankle pumps, Quad Set, Glut sets, Heel Slides (AAROM), Short Arc Quads, Straight leg raise (AAROM), Hip abd/add (AAROM) Supine Reps: 20 Treatments LE exercise Assessment Current Status: Fair Progress poor endurance, occasional rest breaks PT Short Term Goals Short Term Goals Time Frame: Feb 04, 2020 Roll Left & Right: 4 Sit to lyin Lying to sitting on side of be: 3 Sit to stand: 3 Chair/iix-vq-utimh transfer: 3 Walk 10 feet: 3 PT Thread Winder Automatic Goals Thread Winder Automatic Goals PT Thread Winder Automatic Goals Time Frame: Feb 18, 2020 Roll Left & Right (QC): 6 Sit to Lying (QC): 4 Lying-Sitting on Side/Bed(QC): 4 Sit to Stand (QC): 3 ([place]) Chair/Pfv-yh-Ftgns Xfer(QC): 3 ([place]helby) Toilet Transfer (QC): 3 (Shelby) Car Transfer (QC): 3 ([place]) Does the Patient Walk: No and Walking Goal IS indicated Walk 10 feet (QC): 3 Walk 50ft with 2 Turns (QC): 3 Walk 150 ft (QC): 88 Walking 10ft on Uneven Surface: 88 1 Step (curb) (QC): 88 4 Steps (QC): 88 12 Steps (QC): 88 Picking up an Object (QC): 88 Wheel 50 feet with 2 turns (QC: 6 Wheel 150 feet: 6 PT Plan Problem List Problem List: Activity Tolerance, Functional Strength, Safety, Balance, Gait, Transfer, Bed Mobility, ROM Treatment/Plan Treatment Plan: Continue Plan of Care Treatment Plan: Bed Mobility, Education, Functional Activity Renny, Functional Strength, Group Therapy, Gait, Safety, Therapeutic Exercise, Transfers Treatment Duration: Feb 18, 2020 Frequency: At least 5 of 7 days/Wk (IRF) Estimated Hrs Per Day: 1.5 hours per day Patient and/or Family Agrees t: Yes Safety Risks/Education Patient Education: Correct Positioning, Safety Issues Teaching Recipient: Patient Teaching Methods: Demonstration, Discussion Response to Teaching: Reinforcement Needed Time/GCodes Time In: 1300 Time Out: 1315 Total Billed Treatment Time: 15 Total Billed Treatment 1 visit EX MAYTE PERSON PT Feb 15, 2020 13:16
--- NOTE | 2020-02-15 13:46 | Speech Therapy Daily Note ---
Speech Daily Progress Note Subjective Date Seen by Provider: Feb 15, 2020 Time Seen by Provider: 00:30 Patient had just returned to her room following her PT and OT session. She was tired but participated well with ST. Objective Patient completed a series of memory cards related to scenarios she may encounter at home with 80%. Assessment Assessment Current Status: Good Progress Treatment Plan Continue Plan of Care Speech Short Term Goals Short Term Goals Short Term Goals 1) Patient will follow/recall multi step directions for wheelchair mobility without cues at 90% or greater. 2) Patient will recall sequencing for daily activities without cues at 90% or greater. Speech Retirement Goals Paper Handler Goals Patient will demonstrate safety awareness with all daily activities and processes. Speech-Plan Patient/Family Goals Patient/Family Goals: Patient will return to her home where she lives with her . Treatment Plan Speech Therapy Treatment Plan: Continue Plan of Care Treatment Duration: Jan 31, 2020 Frequency: 4 times per week (Patient will receive ST 4-5x per week) Estimated Hrs Per Day: .5 hour per day Rehab Potential: Fair Barriers to Learning: Patient's recent lengthy serious illness Pt/Family Agrees to Plan: Yes Safety Risks/Education Teaching Recipient: Patient Teaching Methods: Demonstration, Discussion Response to Teaching: Verbalize Understanding, Return Demonstration Education Topics Provided: Continued safety within her room, communication of wants and needs. Time Speech Therapy Time In: 09:30 Speech Therapy Time Out: 10:00 Total Billed Time: 30 Billed Treatment Time 1, ROLANDO Groves Feb 15, 2020 13:46
[2020-02-15 16:53] VITALS: BP 138/65
[2020-02-15] MEDS: SERTRALINE 50 MG (ZOLOFT) TABLET PO SCH (20:11)
[2020-02-15] MEDS: PRAMIPEXOLE 0.125 MG (MIRAPEX) TABLET PO SCH (20:11)
[2020-02-16 05:30] VITALS: BP 139/69
--- NOTE | 2020-02-16 05:52 | PM&R Progress Note ---
Subjective HPI/CC On Admission Date Seen by Provider: Feb 16, 2020 Time Seen by Provider: 09:00 Subjective/Events-last exam 02/16/20: Family training today with and son Desats quickly Very anxious at times Will need to evaluate the next step in her care after family education 02/15/20: Sit to stand is very helpful Family education tomorrow with to see if he can manage the sit to stand May not be an option to go home 02/14/20: Pain pill will be given at 6 am to help therapy Hgb good at 9.7 Overall looks pretty good Much improved 02/13/20: Stool softener will be changed to prn Imodium prn Today is 50 anniversary 02/12/20: Participating in therapy Sit to stand Monitor right knee pain 02/11/20: Sit to stand working well for her Weakness improved Xanax helps her Patch and Voltaren helps her right knee 02/10/20: Had an ill episode earlier today Labs and c diff no acute issues Now resolved Doing well currently 02/09/20: NO issues Uses sit to stand well Very weak 02/08/20: Using sit to stand and doing very well Bowels moved today A lot of pain issues Requires a lot of care 02/07/20: Room air maintained O2 sat but with the minimal exertion she goes down into the 80 percent Discontinue Colestid Overall feels like she is doing much better Able to use the sit to stand pretty well 02/06/20: Has multiple little complaints DC PICC since it simply did not function properly DC Venofer O2 on 1L/min 02/05/20: Tearful at times Right knee pain is terrible at times Mobic will be restarted along with other home meds that have now been reviewed 02/04/20: Using sit to stand very well Heels are red so managing that O2 on/off 02/03/20: Oxycodone and Xanax ordered APAP Skateboard Standing with assist Memory loss noted Less edema right knee BM 02/02: Pt doing pretty well Participating in therapy Very motivated to improve Maintained on O2 2 liters 02/01/20: Right knee pain continues but considering the risk for complications from steroid injection after Covid, she will be managing Overall doing pretty well on 2 L of Oxygen Will replace Picc line since it was placed in the arm where she has had her previous mastectomy 01/31/20: Dr. Dent graciously agreed to see her for right knee pain and will initiate an injection Hgb 9.1 so midline will be placed with iron infusions 2 L of oxygen maintained After rounds Dr Dent updated me on the fact that no injection initiated due to high risk following COVID 01/30/20: Right knee pain continues Will reach out to Dr Dent tomorrow Tapazole restarted Midline needed for iron infusions Severe right knee pain 11/26 today so adjusted her pain meds and xray noted severe OA Dr Scott usually gives her a right knee injections every 3 months and she is overdue I will try to have ortho give pain injection Friday Tapazole not on her list and she has Graves disease she states O2 at 80% so will maintain 2L/min O2 Checking iron level since hgb 9.1 Adding TSH FT4 to labs BM today loose Review of Systems General: Fatigue Pulmonary: Dyspnea Objective Exam Vital Signs Vital Signs Date Time Temp Pulse Resp B/P (MAP) Pulse Ox O2 Delivery O2 Flow Rate FiO2 02/17/20 20:30 Nasal Cannula 1.00 02/17/20 17:48 36.8 77 18 143/69 (93) 94 Capillary Refill : Less Than 3 Seconds General Appearance: No Apparent Distress, WD/WN, Chronically ill HEENT: PERRL/EOMI, Normal ENT Inspection, Pharynx Normal Neck: Full Range of Motion, Normal Inspection, Non Tender, Supple, Carotid Bruit Respiratory: Chest Non Tender, Lungs Clear, No Accessory Muscle Use, No Respiratory Distress, Decreased Breath Sounds Cardiovascular: Regular Rate, Rhythm, No Edema, No Gallop, No JVD, No Murmur, Normal Peripheral Pulses Gastrointestinal: Normal Bowel Sounds, No Organomegaly, No Pulsatile Mass, Non Tender, Soft Back: Normal Inspection, No CVA Tenderness, No Vertebral Tenderness Extremity: Normal Capillary Refill, Normal Inspection, Normal Range of Motion, Non Tender, No Calf Tenderness, No Pedal Edema Neurologic/Psychiatric: Alert, Oriented x3, Normal Mood/Affect, publications sales representative II-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 FIM Transfers Therapy Code Descriptions/Definitions Functional [place] Measure: 0=Not Assessed/NA 4=Minimal Assistance 1=Total Assistance 5=Supervision or Setup 2=Maximal Assistance 6=Modified [place] 3=Moderate Assistance 7=Complete IndependenceSCALE: Activities may be completed with or without assistive devices. 7-Ideapwlbty-bodfopm completes the activity by him/herself with no assistance from a helper. 5-Set-up or Clean-up Assistance-helper sets up or cleans up; patient completes activity. [place] assists only prior to or following the activity. 4-Supervision or Touching Assistance-helper provides verbal cues and/or touching/steadying and/or contact guard assistance as patient completes activity. Assistance may be provided throughout the activity or intermittently. 3-Partial/Moderate Assistance-helper does LESS THAN HALF the effort. [place] l ifts, holds or supports trunk or limbs, but provides less than half the effort. 2-Substantial/Maximal Assistance-helper does MORE THAN HALF the effort. [place] lifts or holds trunk or limbs and provides more than half the effort. 7-Lfppnsjgf-mewera does ALL the effort. Patient does none of the effort to complete the activity. Or, the assistance of 2 or more helpers is required for t he patient to complete the activity. If activity was not attempted, code reason: 7-Patient Refused. 9-Not Applicable-not attempted and the patient did not perform the activity before the current illness, exacerbation or injury. 10-Not Attempted due to Environmental Limitations-(lack of equipment, weather restraints, etc.). 88-Not Attempted due to Medical Conditions or Safety Concerns. Roll Left to Right (QC): 4 Sit to Lying (QC): 3 Sit to Stand (QC): 2 Chair/Fcj-jx-Wrxvq Xfer(QC): 2 Car Transfer (QC): 1 Gait Training Does the Patient Walk?: No and Walking Goal IS indicated Walk 10 feet (QC): 88 Walk 50 ft with 2 Turns(QC): 88 Walk 150 ft (QC): 88 Walking 10ft/uneven surface-QC: 88 Wheelchair Training Does the Pt Use a Wheelchair?: Yes Distance: 50'x2 Wheel 50 ft with 2 turns (QC): 4 Wheel 150 ft (QC): 4 Type of Wheelchair: Manual Stair Training 1 Step (curb) (QC): 88 4 Steps (QC): 88 12 Steps (QC): 88 Balance Picking up an Object (QC): 88 ADL-Treatment Eating (QC): 6 (Pt set own meal up and used regular utensils to eat.) Oral Hygiene (QC): 6 Bathing Location: L Arm, R Arm, L Upper Leg, R Upper Leg, L Lower Leg (including foot), R Lower Leg (including foot), Chest, Abdomen, Buttocks, Perineal Area Shower/Bathe Self (QC): 5 Upper Body Dressing (QC): 5 Lower Body Dressing (QC): 3 (Assist to don/doff HANNAH hose) On/Off Footwear (QC): 5 Toileting Hygiene (QC): 5 Toilet Transfer (QC): 1 Assessment/Plan Assessment and Plan Assess & Plan/Chief Complaint Assessment: Critical illness debility from COVID-19 dx 12/11/19 OA h/o breast cancer Allergic rhinitis HTN GERD Depression Lung nodules [facility] 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 since long term care social worker stable Grave's disease Plan: IRF protocol Wean O2 Pain meds BM regimen 01/29/20: Restart Tapazole 5mg daily Knee injection by ortho will be pursued tomorrow O2 01/30/20: Right knee injection will be requested from Dr Dent Pain meds Tapazole O2 01/31/20: Knee injection not performed due to COVID related risk Monitor O2 Midline and Venofer 02/01/20: Monitor closely O2 wean IRF protocol 02/01/30: Monitor O2 Aggressive therapy 02/03/20: Stood with assist and parallel bars today Improved status IV Venofer after PICC changed 02/04/20: Monitor O2 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 02/05/20: O2 Mobic Home meds 02/06/20: DC PICC since it simply did not function properly O2 02/07/20: Monitor closely O2 wean Sit to stand 02/08/20: Participation good Monitor pain 02/09/20: Sit to stand Continue therapy 02/10/20: Labs reviewed Monitor illness closely 02/11/20: Monitor closely Pain control right knee 02/12/20: Monitor right knee pain O2 Increase activity 02/13/20: Imodium prn Sit to stand Right knee pain 02/14/20: Monitor closely Monitor pain 02/15/20: Family education with sit to stand to see if home is an option 02/16/20: had balance issues with sit to stand Unsure if she can go home (1) Myopathy (2) COVID-19 (3) GERD (gastroesophageal reflux disease) (4) Hypoxia (5) HX: breast cancer (6) Anxiety (7) Depression JARRELL HURD DO Feb 16, 2020 05:52
[2020-02-16] MEDS: LIDOCAINE 4% (SALONPAS) PATCH TP SCH ×2 (08:10→21:02)
[2020-02-16] MEDS: GABAPENTIN 300 MG (NEURONTIN) CAP PO SCH ×3 (08:10→21:02)
[2020-02-16] MEDS: ASCORBIC ACID (VIT C) 500 MG TABLET PO SCH (08:11)
[2020-02-16] MEDS: NIFEdipine ER 30 MG (PROCARDIA XL) TAB PO SCH (08:11)
[2020-02-16] MEDS: LACTOBACILLUS ACIDOPHILUS (PROBIOTIC) CAPSULE PO SCH ×2 (08:11→21:02)
[2020-02-16] MEDS: CYANOCOBALAMIN 1,000 MCG (VITAMIN B-12) TABLET PO SCH (08:12)
[2020-02-16] MEDS: VITAMIN D3 125 MCG (5,000 UNITS) CAPSULE PO SCH (08:12)
[2020-02-16] MEDS: ALPRAZolam 0.25 MG (XANAX) TAB PO SCH ×2 (08:13→21:03)
[2020-02-16] MEDS: METHIMAZOLE 5 MG PO SCH (08:13)
[2020-02-16] MEDS: SERTRALINE 100 MG (ZOLOFT) TAB PO SCH (08:14)
[2020-02-16] MEDS: PANTOPRAZOLE 40 MG (PROTONIX) TAB PO SCH ×2 (08:14→21:03)
[2020-02-16] MEDS: MELOXICAM 7.5 MG (MOBIC) TABLET PO SCH (08:14)
[2020-02-16] MEDS: VALSARTAN 160 MG (DIOVAN) TABLET PO SCH (08:15)
[2020-02-16] MEDS: MICONAZOLE 2% POWDER (DESENEX AF) 90 GM TOP SCH ×2 (08:16→21:04)
[2020-02-16] MEDS: ENOXAPARIN 40 MG/0.4 ML (LOVENOX) SYR SC SCH (08:17)
[2020-02-16] MEDS: SILDENAFIL 20 MG (REVATIO) TAB NON-FORMULARY PO SCH ×2 (08:17→21:03)
[2020-02-16] MEDS: DICLOFENAC 1% GEL 100 GM (VOLTAREN) TUBE TOP SCH ×4 (08:17→21:03)
[2020-02-16] MEDS: ACETAMINOPHEN 650 MG PO SCH ×3 (08:18→21:02)
--- NOTE | 2020-02-16 08:37 | NUR ---
AX2 TO TRANSFER FROM BED TO BSC, PT HAD MED SIZED SOFT BRN BM. STAFF PROVIDED SKIN/KEEGAN CARE. PT STATES THAT SHE IS NERVOUS ABOUT THE FAMILY EDUCATION, STATES, "I KNOW I'M NOT READY TO GO HOME YET." PT WORRIED ABOUT FAILING. SUPPORT GIVEN. PT STATES HER BOWELS ARE IN A KNOT BECAUSE OF ALL THIS. SIT TO STAND TRANSFER TO RECLINER, 02 SAT CHECKED ON R/A 84%, 02 PLACED ON 1.5 L & SAT CAME UP TO 94%. INSTR PT TO DILIGENTLY USE HER VIBRAPEP. PT DID USE IT AT THIS TIME, STATED, " I KNOW, I NEED TO REMEMBER THAT
--- NOTE | 2020-02-16 10:42 | Occupational Ther Daily Note ---
OT Current Status-Daily Note ADL-Treatment Therapy Code Descriptions/Definitions Functional [place] Measure: 0=Not Assessed/NA 4=Minimal Assistance 1=Total Assistance 5=Supervision or Setup 2=Maximal Assistance 6=Modified [place] 3=Moderate Assistance 7=Complete IndependenceSCALE: Activities may be completed with or without assistive devices. 3-Aldabgcrry-zpcqbio completes the activity by him/herself with no assistance from a helper. 5-Set-up or Clean-up Assistance-helper sets up or cleans up; patient completes activity. [place] assists only prior to or following the activity. 4-Supervision or Touching Assistance-helper provides verbal cues and/or touching/steadying and/or contact guard assistance as patient completes activity. Assistance may be provided throughout the activity or intermittently. 3-Partial/Moderate Assistance-helper does LESS THAN HALF the effort. [place] lifts, holds or supports trunk or limbs, but provides less than half the effort. 2-Substantial/Maximal Assistance-helper does MORE THAN HALF the effort. [place] lifts or holds trunk or limbs and provides more than half the effort. 4-Mwsvjdasz-nhollo does ALL the effort. Patient does none of the effort to complete the activity. Or, the assistance of 2 or more helpers is required for the patient to complete the activity. If activity was not attempted, code reason: 7-Patient Refused. 9-Not Applicable-not attempted and the patient did not perform the activity before the current illness, exacerbation or injury. 10-Not Attempted due to Environmental Limitations-(lack of equipment, weather restraints, etc.). 88-Not Attempted due to Medical Conditions or Safety Concerns. OT Short Term Goals Short Term Goals Time Frame: Feb 09, 2020 Toileting hygiene: 3 Lower body dressin Putting on/taking off footwear: 3 OT Failure Analysis Engineer Goals Fpc Goals Time Frame: Feb 18, 2020 Eating (QC): 6 Oral Hygiene (QC): 6 Toileting Hygiene (QC): 6 Shower/Bathe Self (QC): 6 Upper Body Dressing (QC): 6 Lower Body Dressing (QC): 6 On/Off Footwear (QC): 6 Additional Goals: 1-Demonstrate ADL Tasks, 2-Verbalize Understanding, 3- ImproveStrength/Renny 1=Demonstrate adherence to instructed precautions during ADL tasks. 2=Patient will verbalize/demonstrate understanding of assistive devices/modifications for ADL. 3=Patient will improve strength/tolerance for activity to enable patient to perform ADL's. OT Education/Plan Treatment Plan/Plan of Care Patient would benefit from OT for education, treatment and training to promote independence in ADL's, mobility, safety and/or upper extremity function for ADL's. Plan of Care: ADL Retraining, Functional Mobility, Group Exercise/Act as Ind, U E Funct Exercise/Act Treatment Duration: Feb 18, 2020 Frequency: At least 5 of 7 days/Wk (IRF) Estimated Hrs Per Day: 1.5 hours per day Agreement: Yes Rehab Potential: DENI Sam[place]oa Feb 16, 2020 10:42
--- NOTE | 2020-02-16 10:51 | Speech Therapy Daily Note ---
Speech Daily Progress Note Subjective Date Seen by Provider: Feb 16, 2020 Time Seen by Provider: 00:30 Patient was sitting up in her recliner following breakfast. Patient was anxious due to her and son coming today for training. Objective Patient completed a series of safety awareness cards with 80% verbal answers with minimal verbal cues. Assessment Assessment Current Status: Good Progress Treatment Plan Continue Plan of Care Speech Short Term Goals Short Term Goals Short Term Goals 1) Patient will follow/recall multi step directions for wheelchair mobility without cues at 90% or greater. 2) Patient will recall sequencing for daily activities without cues at 90% or greater. Speech Halfway Goals Psych Specialist Goals Patient will demonstrate safety awareness with all daily activities and processes. Speech-Plan Patient/Family Goals Patient/Family Goals: Patient plans on returning to her home with her . Treatment Plan Speech Therapy Treatment Plan: Continue Plan of Care Treatment Duration: Jan 31, 2020 Frequency: 4 times per week (Patient will receive ST 4-5x per week) Estimated Hrs Per Day: .5 hour per day Rehab Potential: Fair Barriers to Learning: Patient's decreased recall of new information Pt/Family Agrees to Plan: Yes Safety Risks/Education Teaching Recipient: Patient Teaching Methods: Demonstration, Discussion Response to Teaching: Verbalize Understanding, Return Demonstration Education Topics Provided: Safety within her room Time Speech Therapy Time In: 08:30 Speech Therapy Time Out: 09:00 Total Billed Time: 30 Billed Treatment Time 1MILLIE BETHAN[address] ST Feb 16, 2020 10:51
--- NOTE | 2020-02-16 11:14 | Physical Therapy Daily Note ---
PT Daily Note-Current Subjective Pt. and and son present along with initial 30 min PT OT co Rx. Pt. feels she has made progress and has further to go. Family shares the limited dimensions of their home and also that the bathroom is in much disrepair in that the floor is unstable from water damage and is in process of being torn out etc. Pain Numeric Pain Scale: 3 Location: Right Location Body Site: Knee Pain Description: Ache Mental Status Patient Orientation: Normal For Age Attachments: Oxygen (1L), Other-See Comments (mask out of room) Transfers SCALE: Activities may be completed with or without assistive devices. 8-Bqrmamlvmn-hnjkbvo completes the activity by him/herself with no assistance from a helper. 5-Set-up or Clean-up Assistance-helper sets up or cleans up; patient completes activity. [place] assists only prior to or following the activity. 4-Supervision or Touching Assistance-helper provides verbal cues and/or touching/steadying and/or contact guard assistance as patient completes activity. Assistance may be provided throughout the activity or intermittently. 3-Partial/Moderate Assistance-helper does LESS THAN HALF the effort. [place] lifts, holds or supports trunk or limbs, but provides less than half the effort. 2-Substantial/Maximal Assistance-helper does MORE THAN HALF the effort. [place] lifts or holds trunk or limbs and provides more than half the effort. 1-Mrejgaewc-ogexse does ALL the effort. Patient does none of the effort to complete the activity. Or, the assistance of 2 or more helpers is required for the patient to complete the activity. If activity was not attempted, code reason: 7-Patient Refused. 9-Not Applicable-not attempted and the patient did not perform the activity before the current illness, exacerbation or injury. 10-Not Attempted due to Environmental Limitations-(lack of equipment, weather restraints, etc.). 88-Not Attempted due to Medical Conditions or Safety Concerns. Sit to Stand (QC): 3 Chair/Qxl-in-Jgujq Xfer(QC): 3 Toilet Transfer (QC): 3 sit to stand emphasis moving from w/c to toilet using wall rails with mod assist as well as sit to supervisor spinning // bars mod assist x2-3 sit to stands. Family present, sit to stand lift used as pt. fatigued and also to demonstrate to family as it has been suggested family use one at home for pts TRFs. Family shares this will not be feasible in their home and is not capable of assisting pt. with this. OT PT co Rx for TRF skills and education imparted to galindo higuera, PT instructing in technique and alignment and OT guiding and instructing UE use etc Weight Bearing Full Weight Bearing Full Weight Bearing Gait Training pre gait activities in // bars for standing on LLE , advancing RLE forward and back and attempting wt shift from LLE to RLE as it is advanced in prep for a step, pt. fatiguing and needing to sit but shows promise to advance to taking steps with this. Wheelchair Training Does the Pt Use a Wheelchair?: Yes Wheel 50 ft with 2 turns (QC): 5 Type of Wheelchair: Manual needs some guidance and cuing Exercises Seated Therapy Exercises: Ankle pumps, Sit to stand, Long arc quads, Hip flexion Seated Reps: 10 Treatments sit to stands, TRFs, stance with pre gait activites, family education and trouble shooting for DC Assessment Current Status: Good Progress pt. slowly progressing in all phases of Rx, O2 at 1 L, no dyspnea noted PT Short Term Goals Short Term Goals Time Frame: Feb 04, 2020 Roll Left & Right: 4 Sit to lyin Lying to sitting on side of be: 3 Sit to stand: 3 Chair/eem-vi-lwtjd transfer: 3 Walk 10 feet: 3 PT Dynamometer Tester Goals Dynamometer Tester Goals PT Group Home Goals Time Frame: Feb 18, 2020 Roll Left & Right (QC): 6 Sit to Lying (QC): 4 Lying-Sitting on Side/Bed(QC): 4 Sit to Stand (QC): 3 ([place]) Chair/Hja-fo-Tqcgx Xfer(QC): 3 ([place]) Toilet Transfer (QC): 3 ([place]helby) Car Transfer (QC): 3 ([place]) Does the Patient Walk: No and Walking Goal IS indicated Walk 10 feet (QC): 3 Walk 50ft with 2 Turns (QC): 3 Walk 150 ft (QC): 88 Walking 10ft on Uneven Surface: 88 1 Step (curb) (QC): 88 4 Steps (QC): 88 12 Steps (QC): 88 Picking up an Object (QC): 88 Wheel 50 feet with 2 turns (QC: 6 Wheel 150 feet: 6 PT Plan Treatment/Plan Treatment Plan: Continue Plan of Care Treatment Plan: Bed Mobility, Education, Functional Activity Renny, Functional Strength, Group Therapy, Gait, Safety, Therapeutic Exercise, Transfers Treatment Duration: Feb 18, 2020 Frequency: At least 5 of 7 days/Wk (IRF) Estimated Hrs Per Day: 1.5 hours per day Patient and/or Family Agrees t: Yes Safety Risks/Education Patient Education: Transfer Techniques, Correct Positioning, W/C Management, Disease Process, Safety Issues Teaching Recipient: Patient, Family Teaching Methods: Demonstration, Discussion Response to Teaching: Verbalize Understanding, Return Demonstration, Reinforcement Needed Time/GCodes Time In: 1000 Time Out: 1100 Total Billed Treatment Time: 60 Total Billed Treatment 1,w/c20,FA40 KENZIE MORE DIRECTOR SAFETY Feb 16, 2020 11:14
--- NOTE | 2020-02-16 11:33 | Occupational Ther Daily Note ---
OT Current Status-Daily Note Subjective Pt alert, sitting in recliner. Pt agrees to therapy. No c/o pain at this time. Mental Status/Objective Patient Orientation: Person, Place, Time, Situation Attachments: Oxygen (1L) ADL-Treatment Pt declines shower. Agrees to sponge bath. Pt able to complete bathing sitting on BSC and cleanse self after urination by lifting R LE/hip off of toilet to reach area. Assist still with bowel movement. Pt dons upper body and footwear by self after set up. Threads clothing over feet by self then using sit to stand lift is able to hike pants over own hips. Independent with oral care. Pt states that she has bed cane. Sit to stand lift to transfer to surface to surface. Therapy Code Descriptions/Definitions Functional [place] Measure: 0=Not Assessed/NA 4=Minimal Assistance 1=Total Assistance 5=Supervision or Setup 2=Maximal Assistance 6=Modified [place] 3=Moderate Assistance 7=Complete IndependenceSCALE: Activities may be completed with or without assistive devices. 0-Zntqueykix-whofwpp completes the activity by him/herself with no assistance from a helper. 5-Set-up or Clean-up Assistance-helper sets up or cleans up; patient completes activity. [place] assists only prior to or following the activity. 4-Supervision or Touching Assistance-helper provides verbal cues and/or touching/steadying and/or contact guard assistance as patient completes activity. Assistance may be provided throughout the activity or intermittently. 3-Partial/Moderate Assistance-helper does LESS THAN HALF the effort. [place] lif ts, holds or supports trunk or limbs, but provides less than half the effort. 2-Substantial/Maximal Assistance-helper does MORE THAN HALF the effort. [place] lifts or holds trunk or limbs and provides more than half the effort. 7-Njvfbjwbv-xtbmdy does ALL the effort. Patient does none of the effort to complete the activity. Or, the assistance of 2 or more helpers is required for the patient to complete the activity. If activity was not attempted, code reason: 7-Patient Refused. 9-Not Applicable-not attempted and the patient did not perform the activity before the current illness, exacerbation or injury. 10-Not Attempted due to Environmental Limitations-(lack of equipment, weather restraints, etc.). 88-Not Attempted due to Medical Conditions or Safety Concerns. Oral Hygiene (QC): 6 Shower/Bathe Self (QC): 5 Upper Body Dressing (QC): 5 Lower Body Dressing (QC): 2 On/Off Footwear: 5 Toileting Hygiene (QC): 1 Toilet Transfer (QC): 1 Other Treatment PT/OT co-treat ([id number]), skills of 2 clinicians required for coordination and skilled instruction of bathing, functional transfers, family training and sit to stands. PT focusing on transfers, sit to stand and LE strengthening. OT focusing on ADLs, B UE placement during transfers, w/c mobility and sit to stand. Pt completed own w/c mobility from room <--> therapy gym by self. Family discussed issues with bathroom suzy having water damage and is in need of repair and that doorway is to narrow for w/c. Assist x2 for SPT to toilet and back using grabbars. See PT notes for standing in parallel bars. Pt left in care of PT. All needs met in room. OT Short Term Goals Short Term Goals Time Frame: Feb 09, 2020 Toileting hygiene: 3 Lower body dressin Putting on/taking off footwear: 3 OT Test Data Developer Goals Assisted Goals Time Frame: Feb 18, 2020 Eating (QC): 6 Oral Hygiene (QC): 6 Toileting Hygiene (QC): 6 Shower/Bathe Self (QC): 6 Upper Body Dressing (QC): 6 Lower Body Dressing (QC): 6 On/Off Footwear (QC): 6 Additional Goals: 1-Demonstrate ADL Tasks, 2-Verbalize Understanding, 3- ImproveStrength/Renny 1=Demonstrate adherence to instructed precautions during ADL tasks. 2=Patient will verbalize/demonstrate understanding of assistive devices/modifications for ADL. 3=Patient will improve strength/tolerance for activity to enable patient to perform ADL's. OT Education/Plan Problem List/Assessment Assessment: Decreased Activ Tolerance, Decreased UE Strength, Dependent Transfers, Impaired Coordination Discharge Recommendations Plan/Recommendations: Continue POC Treatment Plan/Plan of Care Patient would benefit from OT for education, treatment and training to promote independence in ADL's, mobility, safety and/or upper extremity function for ADL's. Plan of Care: ADL Retraining, Functional Mobility, Group Exercise/Act as Ind, UE Funct Exercise/Act Treatment Duration: Feb 18, 2020 Frequency: At least 5 of 7 days/Wk (IRF) Estimated Hrs Per Day: 1.5 hours per day Agreement: Yes Rehab Potential: Fair Time/GCodes Start Time: 09:00 Stop Time: 10:40 Total Time Billed (hr/min): 100 Billed Treatment Time 1 visit-ADL 4 (60 min) FA 3 (40 min) co-treat with PT [id number], individual [id number] DENI GRISSOM Feb 16, 2020 11:33
--- NOTE | 2020-02-16 13:35 | NUR ---
Patient Care Conference Discussed care conference summary with patient. Patient is in agreement with team's recommendation for recheck next 02/23/2020. Patient reports her spouse and son attended family training this morning, and while she feels she has made significant progress, she still has more work to do. Her goal is to be able to transfer independently and to be able to ambulate a few steps without assist. Patient reports her spouse has "balance issues" and will not be able to provide a lot of physical assistance in the home. Patient reports, that after discussion with her son, their home could accommodate a tyq-ci-fhmuu lift if needed; however, her goal is to be able to complete ADLs without the use of the qcm-db-drukh lift. Patient reports her home is carpeted throughout and she is concerned about maneuvering a wheelchair over the carpet. This investment underwriter assured the patient the therapy team would be notified regarding this and that there were places inside the hospital she could practice wheelchair mobility over carpeted surfaces. Assured patient that before discharge, all medical equipment would be ordered and in place. Patient reports she is relieved that she will be on the rehab unit another week and reports she is motivated and willing to work with therapies. All questions answered to patient's satisfaction. Continue with plan of care.
--- NOTE | 2020-02-16 14:42 | Occ Therapy Rehab Re-Cert ---
OT Re-Certification Form Plan of Care: ADL Retraining, Functional Mobility, Group Exercise/Act as Ind, UE Funct Exercise/Act LTGs to remain the same, extend timeframe to Mar 10, 2020. Frequency: At least 5 of 7 days/Wk (IRF) Estimated Hrs Per Day: 1.5 hours per day Agreement: Yes Rehab Potential: Fair OT Short Term Goals Short Term Goals Time Frame: Feb 09, 2020 Toileting hygiene: 3 Lower body dressin Putting on/taking off footwear: 3 OT Fdc Goals Fdc Goals Time Frame: Mar 10, 2020 Eating (QC): 6 Oral Hygiene (QC): 6 Toileting Hygiene (QC): 6 Shower/Bathe Self (QC): 6 Upper Body Dressing (QC): 6 Lower Body Dressing (QC): 6 On/Off Footwear (QC): 6 Additional Goals: 1-Demonstrate ADL Tasks, 2-Verbalize Understanding, 3- ImproveStrength/Renny 1=Demonstrate adherence to instructed precautions during ADL tasks. 2=Patient will verbalize/demonstrate understanding of assistive devices/modifications for ADL. 3=Patient will improve strength/tolerance for activity to enable patient to perform ADL's. ISIDRO MACIEL OT Feb 16, 2020 14:42
[2020-02-16 18:19] VITALS: BP 156/74
[2020-02-16] MEDS: MELATONIN 3 MG TABLET PO PRN (21:03)
[2020-02-16] MEDS: SERTRALINE 50 MG (ZOLOFT) TABLET PO SCH (21:03)
[2020-02-16] MEDS: PRAMIPEXOLE 0.125 MG (MIRAPEX) TABLET PO SCH (21:03)
[2020-02-17 06:00] VITALS: BP 162/67
--- NOTE | 2020-02-17 08:23 | Occupational Ther Daily Note ---
OT Current Status-Daily Note Subjective Pt alert, lying in bed. Pt agrees to therapy. No c/o pain at this time. Mental Status/Objective Patient Orientation: Person, Place, Time, Situation Attachments: Oxygen (1L) ADL-Treatment Pt agrees to shower. Pt requests to use BSC. With HOB elevated pt able to go from supine to EOB with SBA and sat EOB independently. Pt positioned sling to sit to stand. Using sit to stand to transfer to multiple surfaces. Pt able to complete shower using shower chair with cutout. Cleansed all areas except buttocks in sitting. After setup, pt able to complete upper body and shoes by self. Pt threaded feet into lower body clothing, pulled up B LE's then with sit to stand to assist in standing. Pt able to propel w/c to designated rooms with minimal breaks. Therapy Code Descriptions/Definitions Functional [place] Measure: 0=Not Assessed/NA 4=Minimal Assistance 1=Total Assistance 5=Supervision or Setup 2=Maximal Assistance 6=Modified [place] 3=Moderate Assistance 7=Complete IndependenceSCALE: Activities may be completed with or without assistive devices. 5-Wmjhqeifcu-ubqnbeq completes the activity by him/herself with no assistance from a helper. 5-Set-up or Clean-up Assistance-helper sets up or cleans up; patient completes activity. [place] assists only prior to or following the activity. 4-Supervision or Touching Assistance-helper provides verbal cues and/or touching/steadying and/or contact guard assistance as patient completes activity. Assistance may be provided throughout the activity or intermittently. 3-Partial/Moderate Assistance-helper does LESS THAN HALF the effort. [place] lifts, holds or supports trunk or limbs, but provides less than half the effort. 2-Substantial/Maximal Assistance-helper does MORE THAN HALF the effort. [place] lifts or holds trunk or limbs and provides more than half the effort. 6-Lfwabzpiw-kqupos does ALL the effort. Patient does none of the effort to complete the activity. Or, the assistance of 2 or more helpers is required for the patient to complete the activity. If activity was not attempted, code reason: 7-Patient Refused. 9-Not Applicable-not attempted and the patient did not perform the activity before the current illness, exacerbation or injury. 10-Not Attempted due to Environmental Limitations-(lack of equipment, weather restraints, etc.). 88-Not Attempted due to Medical Conditions or Safety Concerns. Bathing Location: L Arm, R Arm, L Upper Leg, R Upper Leg, L Lower Leg (including foot), R Lower Leg (including foot), Chest, Abdomen, Perineal Area Shower/Bathe Self (QC): 3 Upper Body Dressing (QC): 5 Lower Body Dressing (QC): 1 On/Off Footwear: 5 Toileting Hygiene (QC): 1 Toilet Transfer (QC): 1 Other Treatment Co-treat with PT ([id number]), skills of 2 clinicians required for skilled instruction and care due to pt's decreased mobility, fall risk and fatigue. PT focusing on ambulation in parallel bars, OT focusing on hand placement. See PT notes for pt's ambulation progress. After session, pt left in care of PT. All needs met. OT Short Term Goals Short Term Goals Time Frame: Feb 09, 2020 Toileting hygiene: 3 Lower body dressin Putting on/taking off footwear: 3 OT Group Home Goals Tattoo Designer Goals Time Frame: Mar 10, 2020 Eating (QC): 6 Oral Hygiene (QC): 6 Toileting Hygiene (QC): 6 Shower/Bathe Self (QC): 6 Upper Body Dressing (QC): 6 Lower Body Dressing (QC): 6 On/Off Footwear (QC): 6 Additional Goals: 1-Demonstrate ADL Tasks, 2-Verbalize Understanding, 3- ImproveStrength/Renny 1=Demonstrate adherence to instructed precautions during ADL tasks. 2=Patient will verbalize/demonstrate understanding of assistive devices/modifications for ADL. 3=Patient will improve strength/tolerance for activity to enable patient to perform ADL's. OT Education/Plan Problem List/Assessment Assessment: Decreased Activ Tolerance, Decreased Safety Aware, Decreased UE Strength, Dependent Transfers, Impaired Funct Balance, Impaired Self-Care Skills, Restricted Funct UE ROM Discharge Recommendations Plan/Recommendations: Continue POC Treatment Plan/Plan of Care Patient would benefit from OT for education, treatment and training to promote independence in ADL's, mobility, safety and/or upper extremity function for ADL's. Plan of Care: ADL Retraining, Functional Mobility, Group Exercise/Act as Ind, UE Funct Exercise/Act Treatment Duration: Feb 18, 2020 Frequency: At least 5 of 7 days/Wk (IRF) Estimated Hrs Per Day: 1.5 hours per day Agreement: Yes Rehab Potential: Fair Time/GCodes Start Time: 07:00 Stop Time: 08:15 Total Time Billed (hr/min): 75 Billed Treatment Time 1 visit-ADL 4 (60 min) FA 1 (15 min) DENI GRISSOM Feb 17, 2020 08:23
[2020-02-17] MEDS: CYANOCOBALAMIN 1,000 MCG (VITAMIN B-12) TABLET PO SCH (08:40)
[2020-02-17] MEDS: SERTRALINE 100 MG (ZOLOFT) TAB PO SCH (08:40)
[2020-02-17] MEDS: VITAMIN D3 125 MCG (5,000 UNITS) CAPSULE PO SCH (08:40)
[2020-02-17] MEDS: ENOXAPARIN 40 MG/0.4 ML (LOVENOX) SYR SC SCH (08:40)
[2020-02-17] MEDS: METHIMAZOLE 5 MG PO SCH (08:40)
[2020-02-17] MEDS: GABAPENTIN 300 MG (NEURONTIN) CAP PO SCH ×3 (08:41→21:06)
[2020-02-17] MEDS: ALPRAZolam 0.25 MG (XANAX) TAB PO SCH ×2 (08:41→21:06)
[2020-02-17] MEDS: MELOXICAM 7.5 MG (MOBIC) TABLET PO SCH (08:41)
[2020-02-17] MEDS: ASCORBIC ACID (VIT C) 500 MG TABLET PO SCH (08:41)
[2020-02-17] MEDS: VALSARTAN 160 MG (DIOVAN) TABLET PO SCH (08:41)
[2020-02-17] MEDS: LACTOBACILLUS ACIDOPHILUS (PROBIOTIC) CAPSULE PO SCH ×2 (08:41→21:06)
[2020-02-17] MEDS: DICLOFENAC 1% GEL 100 GM (VOLTAREN) TUBE TOP SCH ×4 (08:42→21:07)
[2020-02-17] MEDS: NIFEdipine ER 30 MG (PROCARDIA XL) TAB PO SCH (08:42)
[2020-02-17] MEDS: MICONAZOLE 2% POWDER (DESENEX AF) 90 GM TOP SCH ×2 (08:42→21:07)
[2020-02-17] MEDS: SILDENAFIL 20 MG (REVATIO) TAB NON-FORMULARY PO SCH ×2 (08:42→21:06)
[2020-02-17] MEDS: PANTOPRAZOLE 40 MG (PROTONIX) TAB PO SCH ×2 (08:42→21:06)
[2020-02-17] MEDS: ACETAMINOPHEN 650 MG PO SCH ×3 (08:43→21:09)
[2020-02-17] MEDS: LIDOCAINE 4% (SALONPAS) PATCH TP SCH ×2 (08:43→21:07)
--- NOTE | 2020-02-17 08:55 | Physical Therapy Daily Note ---
PT Daily Note-Current Subjective Patient just got done with shower with OT and is now dressed, agrees to PT, has unrated pain in right knee (jackeline wrap put on right knee to help alleviate pain. Will be co-treating with OT for a while due to poor patient mobility, strength, endurance, the need to coordinate UE and LE during activity, severe right knee pain with activity, safety and reduce risk of falls. Appearance Patient in bed post tx with nurse call, phone, tray, all needs met. Mental Status Patient Orientation: Person, Place, Situation Attachments: Oxygen Transfers SCALE: Activities may be completed with or without assistive devices. 3-Jmfsmkwhvn-dsvihuo completes the activity by him/herself with no assistance from a helper. 5-Set-up or Clean-up Assistance-helper sets up or cleans up; patient completes activity. [place] assists only prior to or following the activity. 4-Supervision or Touching Assistance-helper provides verbal cues and/or touching/steadying and/or contact guard assistance as patient completes activity. Assistance may be provided throughout the activity or intermittently. 3-Partial/Moderate Assistance-helper does LESS THAN HALF the effort. [place] lifts, holds or supports trunk or limbs, but provides less than half the effort. 2-Substantial/Maximal Assistance-helper does MORE THAN HALF the effort. [place] lifts or holds trunk or limbs and provides more than half the effort. 8-Lfafcopbp-zwiyva does ALL the effort. Patient does none of the effort to complete the activity. Or, the assistance of 2 or more helpers is required for the patient to complete the activity. If activity was not attempted, code reason: 7-Patient Refused. 9-Not Applicable-not attempted and the patient did not perform the activity before the current illness, exacerbation or injury. 10-Not Attempted due to Environmental Limitations-(lack of equipment, weather restraints, etc.). 88-Not Attempted due to Medical Conditions or Safety Concerns. Roll Left & Right (QC): 6 Sit to Lying (QC): 3 Sit to Stand (QC): 3 Chair/Ikw-pm-Oywlx Xfer(QC): 3 mod assist for sit to stand and transfers Weight Bearing Full Weight Bearing Full Weight Bearing Gait Training Distance: 6'x3 Gait Assistive Device: Parallel Bars WC follow, antalgic, steps inches at a time, severe right knee pain Wheelchair Training Does the Pt Use a Wheelchair?: Yes Wheel 50 ft with 2 turns (QC): 4 Wheel 150 ft (QC): 4 Type of Wheelchair: Manual Exercises NuStep Minutes: 15 NuStep Workload: 3 Treatments bed mobility and transfers, ambulation, WC mobility, functional strengthening Assessment Current Status: Fair Progress Patient is making very slow progress in functional mobility but her right knee pain is making progress difficult. PT Short Term Goals Short Term Goals Time Frame: Feb 04, 2020 Roll Left & Right: 4 Sit to lyin Lying to sitting on side of be: 3 Sit to stand: 3 Chair/kkn-tx-ltjcl transfer: 3 Walk 10 feet: 3 PT Half-Way Goals Half-Way Goals PT Half-Way Goals Time Frame: Feb 18, 2020 Roll Left & Right (QC): 6 Sit to Lying (QC): 4 Lying-Sitting on Side/Bed(QC): 4 Sit to Stand (QC): 3 ([place]) Chair/Vcu-ho-Luzel Xfer(QC): 3 (Shelby) Toilet Transfer (QC): 3 (Shelby) Car Transfer (QC): 3 ([place]helby) Does the Patient Walk: No and Walking Goal IS indicated Walk 10 feet (QC): 3 Walk 50ft with 2 Turns (QC): 3 Walk 150 ft (QC): 88 Walking 10ft on Uneven Surface: 88 1 Step (curb) (QC): 88 4 Steps (QC): 88 12 Steps (QC): 88 Picking up an Object (QC): 88 Wheel 50 feet with 2 turns (QC: 6 Wheel 150 feet: 6 PT Plan Problem List Problem List: Activity Tolerance, Functional Strength, Safety, Balance, Gait, Transfer, Bed Mobility, ROM Treatment/Plan Treatment Plan: Continue Plan of Care Treatment Plan: Bed Mobility, Education, Functional Activity Renny, Functional Strength, Group Therapy, Gait, Safety, Therapeutic Exercise, Transfers Treatment Duration: Feb 18, 2020 Frequency: At least 5 of 7 days/Wk (IRF) Estimated Hrs Per Day: 1.5 hours per day Patient and/or Family Agrees t: Yes Safety Risks/Education Patient Education: Gait Training, Transfer Techniques, Correct Positioning, W/C Management, Safety Issues Teaching Recipient: Patient Teaching Methods: Demonstration, Discussion Response to Teaching: Reinforcement Needed Time/GCodes Time In: 0800 Time Out: 0900 Total Billed Treatment Time: 60 Total Billed Treatment 1 visit GT 15' EX 15' FA 30' co-treated for 15', PT performed bed mobility, WC mobility, functional strengthening, gait training, OT performed UE positioning and safety during ambulation MAYTE BENAVIDEZ PT Feb 17, 2020 08:54
[2020-02-17] MEDS: oxyCODONE/APAP 5/325MG (PERCOCET 5) TABLET PO PRN (08:59)
--- NOTE | 2020-02-17 09:47 | Speech Therapy Daily Note ---
Speech Daily Progress Note Subjective Date Seen by Provider: Feb 17, 2020 Time Seen by Provider: 00:30 Patient was resting in bed following her PT session. Patient c/o right knee pain. Objective Patient completed memory exercise with transfers and wheelchair mobility with 95% given minimal cues. Assessment Assessment Current Status: Good Progress Treatment Plan Continue Plan of Care Speech Short Term Goals Short Term Goals Short Term Goals 1) Patient will follow/recall multi step directions for wheelchair mobility without cues at 90% or greater. 2) Patient will recall sequencing for daily activities without cues at 90% or greater. Speech Chcf Goals Chcf Goals Patient will demonstrate safety awareness with all daily activities and processes. Speech-Plan Patient/Family Goals Patient/Family Goals: Patient plans on returning to her home where she lives with her . Treatment Plan Speech Therapy Treatment Plan: Continue Plan of Care Treatment Duration: Jan 31, 2020 Frequency: 4 times per week (Patient will receive ST 4-5x per week) Estimated Hrs Per Day: .5 hour per day Rehab Potential: Fair Barriers to Learning: Patient's lengthy serious illness, age Pt/Family Agrees to Plan: Yes Safety Risks/Education Teaching Recipient: Patient Teaching Methods: Demonstration, Discussion Response to Teaching: Verbalize Understanding, Return Demonstration Education Topics Provided: Safety within her room, communication of wants/needs Time Speech Therapy Time In: 09:00 Speech Therapy Time Out: 09:30 Total Billed Time: 30 Billed Treatment Time 1MILLIE BETHAN[address] ST Feb 17, 2020 09:47
--- NOTE | 2020-02-17 11:39 | Physical Therapy Daily Note ---
PT Daily Note-Current Subjective Patient in bed pre tx, agrees to PT, has no complaints of pain at rest. Appearance Patient in bed post tx with nurse call, phone, tray, all needs met. Mental Status Patient Orientation: Person, Place, Situation Attachments: Oxygen Transfers SCALE: Activities may be completed with or without assistive devices. 2-Umgkwvvoun-goebgpc completes the activity by him/herself with no assistance from a helper. 5-Set-up or Clean-up Assistance-helper sets up or cleans up; patient completes activity. [place] assists only prior to or following the activity. 4-Supervision or Touching Assistance-helper provides verbal cues and/or touching/steadying and/or contact guard assistance as patient completes activity. Assistance may be provided throughout the activity or intermittently. 3-Partial/Moderate Assistance-helper does LESS THAN HALF the effort. [place] lifts, holds or supports trunk or limbs, but provides less than half the effort. 2-Substantial/Maximal Assistance-helper does MORE THAN HALF the effort. [place] lifts or holds trunk or limbs and provides more than half the effort. 9-Fltnwsdrj-dswzid does ALL the effort. Patient does none of the effort to complete the activity. Or, the assistance of 2 or more helpers is required for the patient to complete the activity. If activity was not attempted, code reason: 7-Patient Refused. 9-Not Applicable-not attempted and the patient did not perform the activity before the current illness, exacerbation or injury. 10-Not Attempted due to Environmental Limitations-(lack of equipment, weather restraints, etc.). 88-Not Attempted due to Medical Conditions or Safety Concerns. Weight Bearing Full Weight Bearing Full Weight Bearing Exercises Supine Ex: Ankle pumps, Quad Set, Glut sets, Heel Slides, Short Arc Quads, Straight leg raise (AAROM), Hip abd/add (AAROM) Supine Reps: 20 Treatments LE exercise Assessment Current Status: Fair Progress progressing very slowly with LE strength, knee pain makes rehab difficult PT Short Term Goals Short Term Goals Time Frame: Feb 04, 2020 Roll Left & Right: 4 Sit to lyin Lying to sitting on side of be: 3 Sit to stand: 3 Chair/ezj-hb-zxtxc transfer: 3 Walk 10 feet: 3 PT Aqua Ammonia Operator Goals Aqua Ammonia Operator Goals PT Aqua Ammonia Operator Goals Time Frame: Feb 18, 2020 Roll Left & Right (QC): 6 Sit to Lying (QC): 4 Lying-Sitting on Side/Bed(QC): 4 Sit to Stand (QC): 3 (Shelby) Chair/Vpa-av-Evdjx Xfer(QC): 3 ([place]by) Toilet Transfer (QC): 3 ([place]helby) Car Transfer (QC): 3 ([place]) Does the Patient Walk: No and Walking Goal IS indicated Walk 10 feet (QC): 3 Walk 50ft with 2 Turns (QC): 3 Walk 150 ft (QC): 88 Walking 10ft on Uneven Surface: 88 1 Step (curb) (QC): 88 4 Steps (QC): 88 12 Steps (QC): 88 Picking up an Object (QC): 88 Wheel 50 feet with 2 turns (QC: 6 Wheel 150 feet: 6 PT Plan Problem List Problem List: Activity Tolerance, Functional Strength, Safety, Balance, Gait, Transfer, Bed Mobility, ROM Treatment/Plan Treatment Plan: Continue Plan of Care Treatment Plan: Bed Mobility, Education, Functional Activity Renny, Functional Strength, Group Therapy, Gait, Safety, Therapeutic Exercise, Transfers Treatment Duration: Feb 18, 2020 Frequency: At least 5 of 7 days/Wk (IRF) Estimated Hrs Per Day: 1.5 hours per day Patient and/or Family Agrees t: Yes Safety Risks/Education Patient Education: Correct Positioning, Safety Issues Teaching Recipient: Patient Teaching Methods: Demonstration, Discussion Response to Teaching: Reinforcement Needed Time/GCodes Time In: 1100 Time Out: 1115 Total Billed Treatment Time: 15 Total Billed Treatment 1 visit EX MAYTE PERSON PT Feb 17, 2020 11:38
--- NOTE | 2020-02-17 13:18 | PM&R Progress Note ---
Subjective HPI/CC On Admission Date Seen by Provider: Feb 17, 2020 Time Seen by Provider: 13:00 Subjective/Events-last exam 02/17/20: Monitor ambulation ability Sit to stand Rash on back 02/16/20: Family training today with and son Desats quickly Very anxious at times Will need to evaluate the next step in her care after family education 02/15/20: Sit to stand is very helpful Family education tomorrow with to see if he can manage the sit to stand May not be an option to go home 02/14/20: Pain pill will be given at 6 am to help therapy Hgb good at 9.7 Overall looks pretty good Much improved 02/13/20: Stool softener will be changed to prn Imodium prn Today is 50 anniversary 02/12/20: Participating in therapy Sit to stand Monitor right knee pain 02/11/20: Sit to stand working well for her Weakness improved Xanax helps her Patch and Voltaren helps her right knee 02/10/20: Had an ill episode earlier today Labs and c diff no acute issues Now resolved Doing well currently 02/09/20: NO issues Uses sit to stand well Very weak 02/08/20: Using sit to stand and doing very well Bowels moved today A lot of pain issues Requires a lot of care 02/07/20: Room air maintained O2 sat but with the minimal exertion she goes down into the 80 percent Discontinue Colestid Overall feels like she is doing much better Able to use the sit to stand pretty well 02/06/20: Has multiple little complaints DC PICC since it simply did not function properly DC Venofer O2 on 1L/min 02/05/20: Tearful at times Right knee pain is terrible at times Mobic will be restarted along with other home meds that have now been reviewed 02/04/20: Using sit to stand very well Heels are red so managing that O2 on/off 02/03/20: Oxycodone and Xanax ordered APAP Skateboard Standing with assist Memory loss noted Less edema right knee BM 02/02: Pt doing pretty well Participating in therapy Very motivated to improve Maintained on O2 2 liters 02/01/20: Right knee pain continues but considering the risk for complications from steroid injection after Covid, she will be managing Overall doing pretty well on 2 L of Oxygen Will replace Picc line since it was placed in the arm where she has had her previous mastectomy 01/31/20: Dr. Dent graciously agreed to see her for right knee pain and will initiate an injection Hgb 9.1 so midline will be placed with iron infusions 2 L of oxygen maintained After rounds Dr Dent updated me on the fact that no injection initiated due to high risk following COVID 01/30/20: Right knee pain continues Will reach out to Dr Dent tomorrow Tapazole restarted Midline needed for iron infusions Severe right knee pain 11/26 today so adjusted her pain meds and xray noted severe OA Dr Scott usually gives her a right knee injections every 3 months and she is overdue I will try to have ortho give pain injection Friday Tapazole not on her list and she has Graves disease she states O2 at 80% so will maintain 2L/min O2 Checking iron level since hgb 9.1 Adding TSH FT4 to labs BM today loose Objective Exam Vital Signs Vital Signs Date Time Temp Pulse Resp B/P (MAP) Pulse Ox O2 Delivery O2 Flow Rate FiO2 02/18/20 06:26 36.0 77 20 140/67 (91) 94 Nasal Cannula 1.00 Capillary Refill : Less Than 3 Seconds General Appearance: No Apparent Distress, WD/WN, Chronically ill HEENT: PERRL/EOMI, Normal ENT Inspection, Pharynx Normal Neck: Full Range of Motion, Normal Inspection, Non Tender, Supple, Carotid Bruit Respiratory: Chest Non Tender, Lungs Clear, No Accessory Muscle Use, No Respiratory Distress, Decreased Breath Sounds Cardiovascular: Regular Rate, Rhythm, No Edema, No Gallop, No JVD, No Murmur, Normal Peripheral Pulses Gastrointestinal: Normal Bowel Sounds, No Organomegaly, No Pulsatile Mass, Non Tender, Soft Back: Normal Inspection, No CVA Tenderness, No Vertebral Tenderness Extremity: Normal Capillary Refill, Normal Inspection, Normal Range of Motion, Non Tender, No Calf Tenderness, No Pedal Edema Neurologic/Psychiatric: Alert, Oriented x3, Normal Mood/Affect, business intelligence engineer II-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 FIM Transfers Therapy Code Descriptions/Definitions Functional [place] Measure: 0=Not Assessed/NA 4=Minimal Assistance 1=Total Assistance 5=Supervision or Setup 2=Maximal Assistance 6=Modified [place] 3=Moderate Assistance 7=Complete IndependenceSCALE: Activities may be completed with or without assistive devices. 4-Jsprtjvaes-gqiemjh completes the activity by him/herself with no assistance from a helper. 5-Set-up or Clean-up Assistance-helper sets up or cleans up; patient completes activity. [place] assists only prior to or following the activity. 4-Supervision or Touching Assistance-helper provides verbal cues and/or touching/steadying and/or contact guard assistance as patient completes activity. Assistance may be provided throughout the activity or intermittently. 3-Partial/Moderate Assistance-helper does LESS THAN HALF the effort. [place] lifts, holds or supports trunk or limbs, but provides less than half the effort. 2-Substantial/Maximal Assistance-helper does MORE THAN HALF the effort. [place] lifts or holds trunk or limbs and provides more than half the effort. 3-Tgbcpiteh-pvfvqf does ALL the effort. Patient does none of the effort to complete the activity. Or, the assistance of 2 or more helpers is required for the patient to complete the activity. If activity was not attempted, code reason: 7-Patient Refused. 9-Not Applicable-not attempted and the patient did not perform the activity before the current illness, exacerbation or injury. 10-Not Attempted due to Environmental Limitations-(lack of equipment, weather restraints, etc.). 88-Not Attempted due to Medical Conditions or Safety Concerns. Roll Left to Right (QC): 6 Sit to Lying (QC): 3 Sit to Stand (QC): 3 Chair/Jnj-ab-Vytbp Xfer(QC): 3 Car Transfer (QC): 1 Gait Training Does the Patient Walk?: No and Walking Goal IS indicated Distance: 6'x3 Walk 10 feet (QC): 88 Walk 50 ft with 2 Turns(QC): 88 Walk 150 ft (QC): 88 Walking 10ft/uneven surface-QC: 88 Gait Assistive Device: Parallel Bars Wheelchair Training Does the Pt Use a Wheelchair?: Yes Distance: 50'x2 Wheel 50 ft with 2 turns (QC): 4 Wheel 150 ft (QC): 4 Type of Wheelchair: Manual Stair Training 1 Step (curb) (QC): 88 4 Steps (QC): 88 12 Steps (QC): 88 Balance Picking up an Object (QC): 88 ADL-Treatment Eating (QC): 6 (Pt set own meal up and used regular utensils to eat.) Oral Hygiene (QC): 6 Bathing Location: L Arm, R Arm, L Upper Leg, R Upper Leg, L Lower Leg (including foot), R Lower Leg (including foot), Chest, Abdomen, Perineal Area Shower/Bathe Self (QC): 3 Upper Body Dressing (QC): 5 Lower Body Dressing (QC): 1 On/Off Footwear (QC): 5 Toileting Hygiene (QC): 1 Toilet Transfer (QC): 1 Assessment/Plan Assessment and Plan Assess & Plan/Chief Complaint Assessment: Critical illness debility from COVID-19 dx 12/11/19 OA h/o breast cancer Allergic rhinitis HTN GERD Depression Lung nodules [facility] 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 Grave's disease Plan: IRF protocol Wean O2 Pain meds BM regimen 01/29/20: Restart Tapazole 5mg daily Knee injection by ortho will be pursued tomorrow O2 01/30/20: Right knee injection will be requested from Dr Dent Pain meds Tapazole O2 01/31/20: Knee injection not performed due to COVID related risk Monitor O2 Midline and Venofer 02/01/20: Monitor closely O2 wean IRF protocol 02/01/30: Monitor O2 Aggressive therapy 02/03/20: Stood with assist and parallel bars today Improved status IV Venofer after PICC changed 02/04/20: Monitor O2 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 02/05/20: O2 Mobic Home meds 02/06/20: DC PICC since it simply did not function properly O2 02/07/20: Monitor closely O2 wean Sit to stand 02/08/20: Participation good Monitor pain 02/09/20: Sit to stand Continue therapy 02/10/20: Labs reviewed Monitor illness closely 02/11/20: Monitor closely Pain control right knee 02/12/20: Monitor right knee pain O2 Increase activity 02/13/20: Imodium prn Sit to stand Right knee pain 02/14/20: Monitor closely Monitor pain 02/15/20: Family education with sit to stand to see if home is an option 02/17/20: Monitor ambulation Rash treatment (1) Myopathy (2) COVID-19 (3) GERD (gastroesophageal reflux disease) (4) Hypoxia (5) HX: breast cancer (6) Anxiety (7) Depression JARRELL HURD DO Feb 17, 2020 13:18
[2020-02-17] MEDS: TRIAMCINOLONE 0.1% CR (KENALOG) 80 GM TUBE TP PRN (16:51)
[2020-02-17 17:48] VITALS: BP 143/69
[2020-02-17] MEDS: SERTRALINE 50 MG (ZOLOFT) TABLET PO SCH (21:06)
[2020-02-17] MEDS: PRAMIPEXOLE 0.125 MG (MIRAPEX) TABLET PO SCH (21:06)
[2020-02-17] MEDS: MELATONIN 3 MG TABLET PO PRN (21:07)
[2020-02-18 06:26] VITALS: BP 140/67
[2020-02-18] MEDS: VALSARTAN 160 MG (DIOVAN) TABLET PO SCH (08:12)
[2020-02-18] MEDS: CYANOCOBALAMIN 1,000 MCG (VITAMIN B-12) TABLET PO SCH (08:12)
[2020-02-18] MEDS: METHIMAZOLE 5 MG PO SCH (08:12)
[2020-02-18] MEDS: ASCORBIC ACID (VIT C) 500 MG TABLET PO SCH (08:13)
[2020-02-18] MEDS: VITAMIN D3 125 MCG (5,000 UNITS) CAPSULE PO SCH (08:13)
[2020-02-18] MEDS: SERTRALINE 100 MG (ZOLOFT) TAB PO SCH (08:13)
[2020-02-18] MEDS: NIFEdipine ER 30 MG (PROCARDIA XL) TAB PO SCH (08:13)
[2020-02-18] MEDS: SILDENAFIL 20 MG (REVATIO) TAB NON-FORMULARY PO SCH ×2 (08:13→21:28)
[2020-02-18] MEDS: PANTOPRAZOLE 40 MG (PROTONIX) TAB PO SCH ×2 (08:13→21:28)
[2020-02-18] MEDS: GABAPENTIN 300 MG (NEURONTIN) CAP PO SCH ×3 (08:13→21:27)
[2020-02-18] MEDS: LIDOCAINE 4% (SALONPAS) PATCH TP SCH ×2 (08:13→21:36)
[2020-02-18] MEDS: ALPRAZolam 0.25 MG (XANAX) TAB PO SCH ×2 (08:13→21:29)
[2020-02-18] MEDS: MELOXICAM 7.5 MG (MOBIC) TABLET PO SCH (08:13)
[2020-02-18] MEDS: LACTOBACILLUS ACIDOPHILUS (PROBIOTIC) CAPSULE PO SCH ×2 (08:13→21:27)
[2020-02-18] MEDS: ENOXAPARIN 40 MG/0.4 ML (LOVENOX) SYR SC SCH (08:15)
[2020-02-18] MEDS: DICLOFENAC 1% GEL 100 GM (VOLTAREN) TUBE TOP SCH ×4 (08:15→21:37)
[2020-02-18] MEDS: MICONAZOLE 2% POWDER (DESENEX AF) 90 GM TOP SCH ×2 (08:16→21:37)
[2020-02-18] MEDS: ACETAMINOPHEN 650 MG PO SCH ×3 (08:17→21:28)
[2020-02-18 08:20] VITALS: BP 149/72
--- NOTE | 2020-02-18 09:01 | Physical Therapy Daily Note ---
PT Daily Note-Current Subjective Pt in bed upon arrival; agrees to PT/OT co-treat. Pain Location: Right Location Body Site: Knee Mental Status Patient Orientation: Person, Place, Time, Situation Attachments: Oxygen (1L) Transfers SCALE: Activities may be completed with or without assistive devices. 2-Pndqrjrxid-zkhbggk completes the activity by him/herself with no assistance from a helper. 5-Set-up or Clean-up Assistance-helper sets up or cleans up; patient completes activity. [place] assists only prior to or following the activity. 4-Supervision or Touching Assistance-helper provides verbal cues and/or touching/steadying and/or contact guard assistance as patient completes activity. Assistance may be provided throughout the activity or intermittently. 3-Partial/Moderate Assistance-helper does LESS THAN HALF the effort. [place] lifts, holds or supports trunk or limbs, but provides less than half the effort. 2-Substantial/Maximal Assistance-helper does MORE THAN HALF the effort. [place] lifts or holds trunk or limbs and provides more than half the effort. 1-Pmjsuhsjz-ibxlnt does ALL the effort. Patient does none of the effort to complete the activity. Or, the assistance of 2 or more helpers is required for the patient to complete the activity. If activity was not attempted, code reason: 7-Patient Refused. 9-Not Applicable-not attempted and the patient did not perform the activity before the current illness, exacerbation or injury. 10-Not Attempted due to Environmental Limitations-(lack of equipment, weather restraints, etc.). 88-Not Attempted due to Medical Conditions or Safety Concerns. Roll Left & Right (QC): 4 Lying to Sitting/Side of Bed(Q: 4 Sit to Stand (QC): 1 (STS lift used in room. Pt sit<>stands in // bars w/ [place] x2) Chair/Frf-su-Zqxea Xfer(QC): 1 Toilet Transfer (QC): 1 Weight Bearing Full Weight Bearing Full Weight Bearing Gait Training Gait Persons Needed: 2 Gait Assistive Device: Parallel Bars Pt ambulates in // bars x2 w/ w/c following for safety and 2 staff (1 in front and 1 behind w/ w/c). Neuromuscular Pt completes static standing balance in //bars using BUE's for support. Treatments PT/OT co-treat, skills of 2 clinicians required for coordination and skilled instruction of bathing, functional transfers and sit to stands. PT focusing on transfers, sit to stand and LE strengthening. OT focusing on ADLs, B UE so cement during transfers, w/c mobility and sit to stand. Pt donned clothes seated EOB, pant hike complete in sit to stand lift, transferred to w/c. Pt completed own w/c mobility from room <--> therapy gym by self, rest breaks as needed. Pt stood in parallel bars x2 trials, ~1 min each stand. Pt also ambulated length of bars x2, w/c follow. Pt took rest breaks between each stand/ambulation. Pt self- propelled back to her room, sit to stand lift to [facility], pt completed toileting, then transferred to recliner. Post tx, pt seated in recliner, call light in reach and all needs met. Assessment Current Status: Good Progress Pt motivated and determined to complete tasks to the best of pt ability. Pt has c/o R knee pain only w/ activity. PT Short Term Goals Short Term Goals Time Frame: Feb 04, 2020 Roll Left & Right: 4 Sit to lyin Lying to sitting on side of be: 3 Sit to stand: 3 Chair/vag-by-zjlrg transfer: 3 Walk 10 feet: 3 PT Kiln Remover Goals Halfway Goals PT Halfway Goals Time Frame: Feb 18, 2020 Roll Left & Right (QC): 6 Sit to Lying (QC): 4 Lying-Sitting on Side/Bed(QC): 4 Sit to Stand (QC): 3 ([place]) Chair/Bgs-yt-Irmqk Xfer(QC): 3 ([place]) Toilet Transfer (QC): 3 ([place]) Car Transfer (QC): 3 ([place]) Does the Patient Walk: No and Walking Goal IS indicated Walk 10 feet (QC): 3 Walk 50ft with 2 Turns (QC): 3 Walk 150 ft (QC): 88 Walking 10ft on Uneven Surface: 88 1 Step (curb) (QC): 88 4 Steps (QC): 88 12 Steps (QC): 88 Picking up an Object (QC): 88 Wheel 50 feet with 2 turns (QC: 6 Wheel 150 feet: 6 PT Plan Problem List Problem List: Activity Tolerance, Functional Strength, Safety, Balance, Transfer, Bed Mobility Treatment/Plan Treatment Plan: Continue Plan of Care Treatment Plan: Bed Mobility, Education, Functional Activity Renny, Functional Strength, Group Therapy, Gait, Safety, Therapeutic Exercise, Transfers Treatment Duration: Feb 18, 2020 Frequency: At least 5 of 7 days/Wk (IRF) Estimated Hrs Per Day: 1.5 hours per day Patient and/or Family Agrees t: Yes Safety Risks/Education Patient Education: Transfer Techniques, Correct Positioning, Safety Issues Teaching Recipient: Patient Teaching Methods: Discussion Response to Teaching: Verbalize Understanding Time/GCodes Time In: 0800 Time Out: 0900 Total Billed Treatment Time: 60 Total Billed Treatment Co-Treat w/ OT 1, FA x2 (25m), NM x1 (8m), GT x1 (15m), WCH x1 (12m) GLORIA MANZANARES OFFICE SUPPORT SPECIALIST Feb 18, 2020 09:01
--- NOTE | 2020-02-18 09:13 | Occupational Ther Daily Note ---
OT Current Status-Daily Note ADL-Treatment Therapy Code Descriptions/Definitions Functional [place] Measure: 0=Not Assessed/NA 4=Minimal Assistance 1=Total Assistance 5=Supervision or Setup 2=Maximal Assistance 6=Modified [place] 3=Moderate Assistance 7=Complete IndependenceSCALE: Activities may be completed with or without assistive devices. 5-Mmtzztnrzi-azzftqq completes the activity by him/herself with no assistance from a helper. 5-Set-up or Clean-up Assistance-helper sets up or cleans up; patient completes activity. [place] assists only prior to or following the activity. 4-Supervision or Touching Assistance-helper provides verbal cues and/or touching/steadying and/or contact guard assistance as patient completes activity. Assistance may be provided throughout the activity or intermittently. 3-Partial/Moderate Assistance-helper does LESS THAN HALF the effort. [place] lifts, holds or supports trunk or limbs, but provides less than half the effort. 2-Substantial/Maximal Assistance-helper does MORE THAN HALF the effort. [place] lifts or holds trunk or limbs and provides more than half the effort. 6-Ryynhayfk-xvlafz does ALL the effort. Patient does none of the effort to complete the activity. Or, the assistance of 2 or more helpers is required for the patient to complete the activity. If activity was not attempted, code reason: 7-Patient Refused. 9-Not Applicable-not attempted and the patient did not perform the activity before the current illness, exacerbation or injury. 10-Not Attempted due to Environmental Limitations-(lack of equipment, weather restraints, etc.). 88-Not Attempted due to Medical Conditions or Safety Concerns. Upper Body Dressing (QC): 5 Lower Body Dressing (QC): 2 On/Off Footwear: 5 Toileting Hygiene (QC): 1 Toilet Transfer (QC): 1 Other Treatment PT/OT co-treat, skills of 2 clinicians required for coordination and skilled instruction of bathing, functional transfers and sit to stands. PT focusing on transfers, sit to stand and LE strengthening. OT focusing on ADLs, B UE placement during transfers, w/c mobility and sit to stand. Pt donned clothes seated EOB, pant hike complete in sit to stand lift, transferred to w/c. Pt completed own w/c mobility from room <--> therapy gym by self, rest breaks as needed. Pt stood in parallel bars x2 trials, ~1 min each stand. Pt also ambulated length of bars x2, w/c follow. Pt took rest breaks between each stand/ambulation. Pt self-propelled back to her room, sit to stand lift to [facility], pt completed toileting, then transferred to recliner. Post tx, pt seated in recliner, call light in reach and all needs met. Education OT Patient Education: Correct positioning, Modified ADL techniques, Progress toward Goal/Update tx plan, Purpose of tx/functional activities Teaching Recipient: Patient Teaching Methods: Discussion Response to Teaching: Verbalize Understanding OT Short Term Goals Short Term Goals Time Frame: Feb 09, 2020 Toileting hygiene: 3 Lower body dressin Putting on/taking off footwear: 3 OT Jail Goals Jail Goals Time Frame: Mar 10, 2020 Eating (QC): 6 Oral Hygiene (QC): 6 Toileting Hygiene (QC): 6 Shower/Bathe Self (QC): 6 Upper Body Dressing (QC): 6 Lower Body Dressing (QC): 6 On/Off Footwear (QC): 6 Additional Goals: 1-Demonstrate ADL Tasks, 2-Verbalize Understanding, 3- ImproveStrength/Renny 1=Demonstrate adherence to instructed precautions during ADL tasks. 2=Patient will verbalize/demonstrate understanding of assistive devices/modifications for ADL. 3=Patient will improve strength/tolerance for activity to enable patient to perform ADL's. OT Education/Plan Problem List/Assessment Assessment: Decreased Activ Tolerance, Decreased UE Strength, Impaired Funct Balance, Impaired I ADL's, Impaired Self-Care Skills Discharge Recommendations Plan/Recommendations: Continue POC Treatment Plan/Plan of Care Patient would benefit from OT for education, treatment and training to promote independence in ADL's, mobility, safety and/or upper extremity function for ADL's. Plan of Care: ADL Retraining, Functional Mobility, Group Exercise/Act as Ind, UE Funct Exercise/Act Treatment Duration: Feb 18, 2020 Frequency: At least 5 of 7 days/Wk (IRF) Estimated Hrs Per Day: 1.5 hours per day Agreement: Yes Rehab Potential: Fair Time/GCodes Start Time: 08:00 Stop Time: 09:00 Total Time Billed (hr/min): 60 Billed Treatment Time cotreat x60' 1, ADL 2 (25'), FA 2 (35') ISIDRO MACIEL OT Feb 18, 2020 09:13
--- NOTE | 2020-02-18 13:56 | PM&R Progress Note ---
Subjective HPI/CC On Admission Date Seen by Provider: Feb 18, 2020 Time Seen by Provider: 14:30 Subjective/Events-last exam 02/18/20: Rash improved with cream No new pain reported Right knee pain limits her activity May need NH placement 02/17/20: Monitor ambulation ability Sit to stand Rash on back 02/16/20: Family training today with and son Desats quickly Very anxious at times Will need to evaluate the next step in her care after family education 02/15/20: Sit to stand is very helpful Family education tomorrow with to see if he can manage the sit to stand May not be an option to go home 02/14/20: Pain pill will be given at 6 am to help therapy Hgb good at 9.7 Overall looks pretty good Much improved 02/13/20: Stool softener will be changed to prn Imodium prn Today is 51st anniversary 02/12/20: Participating in therapy Sit to stand Monitor right knee pain 02/11/20: Sit to stand working well for her Weakness improved Xanax helps her Patch and Voltaren helps her right knee 02/10/20: Had an ill episode earlier today Labs and c diff no acute issues Now resolved Doing well currently 02/09/20: NO issues Uses sit to stand well Very weak 02/08/20: Using sit to stand and doing very well Bowels moved today A lot of pain issues Requires a lot of care 02/07/20: Room air maintained O2 sat but with the minimal exertion she goes down into the 80 percent Discontinue Colestid Overall feels like she is doing much better Able to use the sit to stand pretty well 02/06/20: Has multiple little complaints DC PICC since it simply did not function properly DC Venofer O2 on 1L/min 02/05/20: Tearful at times Right knee pain is terrible at times Mobic will be restarted along with other home meds that have now been reviewed 02/04/20: Using sit to stand very well Heels are red so managing that O2 on/off 02/03/20: Oxycodone and Xanax ordered APAP Skateboard Standing with assist Memory loss noted Less edema right knee BM 02/02: Pt doing pretty well Participating in therapy Very motivated to improve Maintained on O2 2 liters 02/01/20: Right knee pain continues but considering the risk for complications from steroid injection after Covid, she will be managing Overall doing pretty well on 2 L of Oxygen Will replace Picc line since it was placed in the arm where she has had her previous mastectomy 01/31/20: Dr. Dent graciously agreed to see her for right knee pain and will initiate an injection Hgb 9.1 so midline will be placed with iron infusions 2 L of oxygen maintained After rounds Dr Dent updated me on the fact that no injection initiated due to high risk following COVID 01/30/20: Right knee pain continues Will reach out to Dr Dent tomorrow Tapazole restarted Midline needed for iron infusions Severe right knee pain 11/26 today so adjusted her pain meds and xray noted severe OA Dr Scott usually gives her a right knee injections every 3 months and she is overdue I will try to have ortho give pain injection Friday Tapazole not on her list and she has Graves disease she states O2 at 80% so will maintain 2L/min O2 Checking iron level since hgb 9.1 Adding TSH FT4 to labs BM today loose Review of Systems General: Fatigue, Malaise Pulmonary: Dyspnea Objective Exam Vital Signs Vital Signs Date Time Temp Pulse Resp B/P (MAP) Pulse Ox O2 Delivery O2 Flow Rate FiO2 02/18/20 18:01 37.0 78 18 160/78 (105) 95 Nasal Cannula 1.00 Capillary Refill : Less Than 3 Seconds General Appearance: No Apparent Distress, WD/WN, Chronically ill HEENT: PERRL/EOMI, Normal ENT Inspection, Pharynx Normal Neck: Full Range of Motion, Normal Inspection, Non Tender, Supple, Carotid Bruit Respiratory: Chest Non Tender, Lungs Clear, No Accessory Muscle Use, No Respiratory Distress, Decreased Breath Sounds Cardiovascular: Regular Rate, Rhythm, No Edema, No Gallop, No JVD, No Murmur, Normal Peripheral Pulses Gastrointestinal: Normal Bowel Sounds, No Organomegaly, No Pulsatile Mass, Non Tender, Soft Back: Normal Inspection, No CVA Tenderness, No Vertebral Tenderness Extremity: Normal Capillary Refill, Normal Inspection, Normal Range of Motion, Non Tender, No Calf Tenderness, No Pedal Edema Neurologic/Psychiatric: Alert, Oriented x3, Normal Mood/Affect, 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 FIM Transfers Therapy Code Descriptions/Definitions Functional [place] Measure: 0=Not Assessed/NA 4=Minimal Assistance 1=Total Assistance 5=Supervision or Setup 2=Maximal Assistance 6=Modified [place] 3=Moderate Assistance 7=Complete IndependenceSCALE: Activities may be completed with or without assistive devices. 6-Yoicsvdoox-kqpwyir completes the activity by him/herself with no assistance from a helper. 5-Set-up or Clean-up Assistance-helper sets up or cleans up; patient completes activity. [place] assists only prior to or following the activity. 4-Supervision or Touching Assistance-helper provides verbal cues and/or touching/steadying and/or contact guard assistance as patient completes act ivity. Assistance may be provided throughout the activity or intermittently. 3-Partial/Moderate Assistance-helper does LESS THAN HALF the effort. [place] lifts, holds or supports trunk or limbs, but provides less than half the effort. 2-Substantial/Maximal Assistance-helper does MORE THAN HALF the effort. [place] lifts or holds trunk or limbs and provides more than half the effort. 0-Wkrnucxct-qtrypf does ALL the effort. Patient does none of the effort to complete the activity. Or, the assistance of 2 or more helpers is required for the patient to complete the activity. If activity was not attempted, code reason: 7-Patient Refused. 9-Not Applicable-not attempted and the patient did not perform the activity before the current illness, exacerbation or injury. 10-Not Attempted due to Environmental Limitations-(lack of equipment, weather restraints, etc.). 88-Not Attempted due to Medical Conditions or Safety Concerns. Roll Left to Right (QC): 4 Sit to Lying (QC): 3 Sit to Stand (QC): 1 (STS lift used in room. Pt sit<>stands in // bars w/ Gia x2) Chair/Qnt-nl-Wtolu Xfer(QC): 1 Car Transfer (QC): 1 Gait Training Does the Patient Walk?: No and Walking Goal IS indicated Distance: 6'x3 Walk 10 feet (QC): 88 Walk 50 ft with 2 Turns(QC): 88 Walk 150 ft (QC): 88 Walking 10ft/uneven surface-QC: 88 Gait Persons Needed: 2 Gait Assistive Device: Parallel Bars Wheelchair Training Does the Pt Use a Wheelchair?: Yes Distance: 50'x2 Wheel 50 ft with 2 turns (QC): 4 Wheel 150 ft (QC): 4 Type of Wheelchair: Manual Stair Training 1 Step (curb) (QC): 88 4 Steps (QC): 88 12 Steps (QC): 88 Balance Picking up an Object (QC): 88 ADL-Treatment Eating (QC): 6 (Pt set own meal up and used regular utensils to eat.) Oral Hygiene (QC): 6 Bathing Location: L Arm, R Arm, L Upper Leg, R Upper Leg, L Lower Leg (inclu ding foot), R Lower Leg (including foot), Chest, Abdomen, Perineal Area Shower/Bathe Self (QC): 3 Upper Body Dressing (QC): 5 Lower Body Dressing (QC): 2 On/Off Footwear (QC): 5 Toileting Hygiene (QC): 1 Toilet Transfer (QC): 1 Assessment/Plan Assessment and Plan Assess & Plan/Chief Complaint Assessment: Critical illness debility from COVID-19 dx 12/11/19 OA h/o breast cancer Allergic rhinitis HTN GERD Depression Lung nodules [facility]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 Grave's disease Plan: IRF protocol Wean O2 Pain meds BM regimen 01/29/20: Restart Tapazole 5mg daily Knee injection by ortho will be pursued tomorrow O2 01/30/20: Right knee injection will be requested from Dr Dent Pain meds Tapazole O2 01/31/20: Knee injection not performed due to COVID related risk Monitor O2 Midline and Venofer 02/01/20: Monitor closely O2 wean IRF protocol 02/01/30: Monitor O2 Aggressive therapy 02/03/20: Stood with assist and parallel bars today Improved status IV Venofer after PICC changed 02/04/20: Monitor O2 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 02/05/20: O2 Mobic Home meds 02/06/20: DC PICC since it simply did not function properly O2 02/07/20: Monitor closely O2 wean Sit to stand 02/08/20: Participation good Monitor pain 02/09/20: Sit to stand Continue therapy 02/10/20: Labs reviewed Monitor illness closely 02/11/20: Monitor closely Pain control right knee 02/12/20: Monitor right knee pain O2 Increase activity 02/13/20: Imodium prn Sit to stand Right knee pain 02/14/20: Monitor closely Monitor pain 02/15/20: Family education with sit to stand to see if home is an option 02/17/20: Monitor ambulation Rash treatment 02/18/20: Continue treatment O2 wean (1) Myopathy (2) COVID-19 (3) GERD (gastroesophageal reflux disease) (4) Hypoxia (5) HX: breast cancer (6) Anxiety (7) Depression JARRELL HURD DO Feb 18, 2020 13:56
--- NOTE | 2020-02-18 14:59 | Therapy Group Daily Note ---
Therapy Daily Group Note Patient Education Topic Other List Below (Memory & Memory Strategies) Exercises LE Seated Exercise, UE Exercise Session Ratio (pt:therapist): 4:1 Goal of Session: Education on ARU Expectations, Memory Strategies, UE/LE Strengthing Goal Met for this Session: Yes Pt Benefit of Group: Contributions to Others, F/U Use of Strategies @Home, Increased Functional Safety, Increased Functional Strength, Improved Cognition, Recognition of Peers, Socialization Other/Notes Pt was propelled to PT Group using [facility] while on .5L. Group consisted of Introductions (Name, Where from & Favorite Winter or Snow time Activity), Socialization, Seated UE & LE Exercise as well as ARU Expectations and Memory Strategy with Activity/Game. Pt is able to actively participate in both Exercises and give personal examples of Memory Strategies that have worked for her. Pt is able to match 3/3 in Memory game. Pt returns to room to rest in bed after using BSC at end of Group. All needs met, call light in hand. Start Time: 13:00 Stop Time: 14:00 Total Billed Treatment Time: 60 Total Billed Treatment 1, GRP [employer] COUNSELOR Feb 18, 2020 14:59
[2020-02-18 18:01] VITALS: BP 160/78
[2020-02-18] MEDS: PRAMIPEXOLE 0.125 MG (MIRAPEX) TABLET PO SCH (21:27)
[2020-02-18] MEDS: SERTRALINE 50 MG (ZOLOFT) TABLET PO SCH (21:35)
[2020-02-19 05:36] VITALS: BP 166/77
--- NOTE | 2020-02-19 07:30 | PM&R Progress Note ---
Subjective HPI/CC On Admission Date Seen by Provider: Feb 19, 2020 Time Seen by Provider: 13:00 Subjective/Events-last exam 02/19/20: Participation with therapy going well No pain reported except right knee Likely will need NHP 02/18/20: Rash improved with cream No new pain reported Right knee pain limits her activity May need NH placement 02/17/20: Monitor ambulation ability Sit to stand Rash on back 02/16/20: Family training today with and son Desats quickly Very anxious at times Will need to evaluate the next step in her care after family education 02/15/20: Sit to stand is very helpful Family education tomorrow with to see if he can manage the sit to stand May not be an option to go home 02/14/20: Pain pill will be given at 6 am to help therapy Hgb good at 9.7 Overall looks pretty good Much improved 02/13/20: Stool softener will be changed to prn Imodium prn Today is 50 anniversary 02/12/20: Participating in therapy Sit to stand Monitor right knee pain 02/11/20: Sit to stand working well for her Weakness improved Xanax helps her Patch and Voltaren helps her right knee 02/10/20: Had an ill episode earlier today Labs and c diff no acute issues Now resolved Doing well currently 02/09/20: NO issues Uses sit to stand well Very weak 02/08/20: Using sit to stand and doing very well Bowels moved today A lot of pain issues Requires a lot of care 02/07/20: Room air maintained O2 sat but with the minimal exertion she goes down into the 80 percent Discontinue Colestid Overall feels like she is doing much better Able to use the sit to stand pretty well 02/06/20: Has multiple little complaints DC PICC since it simply did not function properly DC Venofer O2 on 1L/min 02/05/20: Tearful at times Right knee pain is terrible at times Mobic will be restarted along with other home meds that have now been reviewed 02/04/20: Using sit to stand very well Heels are red so managing that O2 on/off 02/03/20: Oxycodone and Xanax ordered APAP Skateboard Standing with assist Memory loss noted Less edema right knee BM 02/02: Pt doing pretty well Participating in therapy Very motivated to improve Maintained on O2 2 liters 02/01/20: Right knee pain continues but considering the risk for complications from steroid injection after Covid, she will be managing Overall doing pretty well on 2 L of Oxygen Will replace Picc line since it was placed in the arm where she has had her previous mastectomy 01/31/20: Dr. Dent graciously agreed to see her for right knee pain and will initiate an injection Hgb 9.1 so midline will be placed with iron infusions 2 L of oxygen maintained After rounds Dr Dent updated me on the fact that no injection initiated due to high risk following COVID 01/30/20: Right knee pain continues Will reach out to Dr Dent tomorrow Tapazole restarted Midline needed for iron infusions Severe right knee pain 11/26 today so adjusted her pain meds and xray noted francois re OA Dr Scott usually gives her a right knee injections every 3 months and she is overdue I will try to have ortho give pain injection Friday Tapazole not on her list and she has Graves disease she states O2 at 80% so will maintain 2L/min O2 Checking iron level since hgb 9.1 Adding TSH FT4 to labs BM today loose Review of Systems General: Fatigue, Malaise Neurological: Weakness Objective Exam Vital Signs Vital Signs Date Time Temp Pulse Resp B/P (MAP) Pulse Ox O2 Delivery O2 Flow Rate FiO2 02/20/20 06:23 37.0 77 18 162/77 (105) 96 Nasal Cannula 1.00 Capillary Refill : Less Than 3 Seconds General Appearance: No Apparent Distress, WD/WN, Chronically ill HEENT: PERRL/EOMI, Normal ENT Inspection, Pharynx Normal Neck: Full Range of Motion, Normal Inspection, Non Tender, Supple, Carotid Bruit Respiratory: Chest Non Tender, Lungs Clear, No Accessory Muscle Use, No Respiratory Distress, Decreased Breath Sounds Cardiovascular: Regular Rate, Rhythm, No Edema, No Gallop, No JVD, No Murmur, Normal Peripheral Pulses Gastrointestinal: Normal Bowel Sounds, No Organomegaly, No Pulsatile Mass, Non Tender, Soft Back: Normal Inspection, No CVA Tenderness, No Vertebral Tenderness Extremity: Normal Capillary Refill, Normal Inspection, Normal Range of Motion, Non Tender, No Calf Tenderness, No Pedal Edema Neurologic/Psychiatric: Alert, Oriented x3, Normal Mood/Affect, overhead cleaner maintainer II-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 FIM Transfers Therapy Code Descriptions/Definitions Functional [place] Measure: 0=Not Assessed/NA 4=Minimal Assistance 1=Total Assistance 5=Supervision or Setup 2=Maximal Assistance 6=Modified [place] 3=Moderate Assistance 7=Complete IndependenceSCALE: Activities may be completed with or without assistive devices. 8-Uswzfpduzp-pbpiqlw completes the activity by him/herself with no assistance from a helper. 5-Set-up or Clean-up Assistance-helper sets up or cleans up; patient completes activity. [place] assists only prior to or following the activity. 4-Supervision or Touching Assistance-helper provides verbal cues and/or touching/steadying and/or contact guard assistance as patient completes activity. Assistance may be provided throughout the activity or intermittently. 3-Partial/Moderate Assistance-helper does LESS THAN HALF the effort. [place] lifts, holds or supports trunk or limbs, but provides less than half the effort. 2-Substantial/Maximal Assistance-helper does MORE THAN HALF the effort. [place] lifts or holds trunk or limbs and provides more than half the effort. 3-Mvngkbzuy-svjrat does ALL the effort. Patient does none of the effort to complete the activity. Or, the assistance of 2 or more helpers is required for the patient to complete the activity. If activity was not attempted, code reason: 7-Patient Refused. 9-Not Applicable-not attempted and the patient did not perform the activity before the current illness, exacerbation or injury. 10-Not Attempted due to Environmental Limitations-(lack of equipment, weather restraints, etc.). 88-Not Attempted due to Medical Conditions or Safety Concerns. Roll Left to Right (QC): 4 Sit to Lying (QC): 3 Sit to Stand (QC): 1 (STS lift used in room. Pt sit<>stands in // bars w/ Gia x2) Chair/Qhd-gq-Xowqr Xfer(QC): 1 Car Transfer (QC): 1 Gait Training Does the Patient Walk?: No and Walking Goal IS indicated Distance: 6'x3 Walk 10 feet (QC): 88 Walk 50 ft with 2 Turns(QC): 88 Walk 150 ft (QC): 88 Walking 10ft/uneven surface-QC: 88 Gait Persons Needed: 2 Gait Assistive Device: Parallel Bars Wheelchair Training Does the Pt Use a Wheelchair?: Yes Distance: 50'x2 Wheel 50 ft with 2 turns (QC): 4 Wheel 150 ft (QC): 4 Type of Wheelchair: Manual Stair Training 1 Step (curb) (QC): 88 4 Steps (QC): 88 12 Steps (QC): 88 Balance Picking up an Object (QC): 88 ADL-Treatment Eating (QC): 6 (Pt set own meal up and used regular utensils to eat.) Oral Hygiene (QC): 6 Bathing Location: L Arm, R Arm, L Upper Leg, R Upper Leg, L Lower Leg (including foot), R Lower Leg (including foot), Chest, Abdomen, Perineal Area Shower/Bathe Self (QC): 3 Upper Body Dressing (QC): 5 Lower Body Dressing (QC): 2 On/Off Footwear (QC): 5 Toileting Hygiene (QC): 1 Toilet Transfer (QC): 1 Assessment/Plan Assessment and Plan Assess & Plan/Chief Complaint Assessment: Critical illness debility from COVID-19 dx 12/11/19 OA h/o breast cancer Allergic rhinitis HTN GERD Depression 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 since 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 Grave's disease Anxiety Severe right knee pain from OA chronic Plan: IRF protocol Wean O2 Pain meds BM regimen 01/29/20: Restart Tapazole 5mg daily Knee injection by ortho will be pursued tomorrow O2 01/30/20: Right knee injection will be requested from Dr Dent Pain meds Tapazole O2 01/31/20: Knee injection not performed due to COVID related risk Monitor O2 Midline and Venofer 02/01/20: Monitor closely O2 wean IRF protocol 02/01/30: Monitor O2 Aggressive therapy 02/03/20: Stood with assist and parallel bars today Improved status IV Venofer after PICC changed 02/04/20: Monitor O2 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 02/05/20: O2 Mobic Home meds 02/06/20: DC PICC since it simply did not function properly O2 02/07/20: Monitor closely O2 wean Sit to stand 02/08/20: Participation good Monitor pain 02/09/20: Sit to stand Continue therapy 02/10/20: Labs reviewed Monitor illness closely 02/11/20: Monitor closely Pain control right knee 02/12/20: Monitor right knee pain O2 Increase activity 02/13/20: Imodium prn Sit to stand Right knee pain 02/14/20: Monitor closely Monitor pain 02/15/20: Family education with sit to stand to see if home is an option 02/17/20: Monitor ambulation Rash treatment 02/18/20: Continue treatment O2 wean 02/19/20: Monitor O2 Pain management (1) Myopathy (2) COVID-19 (3) GERD (gastroesophageal reflux disease) (4) Hypoxia (5) HX: breast cancer (6) Anxiety (7) Depression JARRELL HURD DO Feb 19, 2020 07:30
[2020-02-19] MEDS: LACTOBACILLUS ACIDOPHILUS (PROBIOTIC) CAPSULE PO SCH ×2 (08:09→21:21)
[2020-02-19] MEDS: MELOXICAM 7.5 MG (MOBIC) TABLET PO SCH (08:09)
[2020-02-19] MEDS: SERTRALINE 100 MG (ZOLOFT) TAB PO SCH (08:10)
[2020-02-19] MEDS: CYANOCOBALAMIN 1,000 MCG (VITAMIN B-12) TABLET PO SCH (08:10)
[2020-02-19] MEDS: ASCORBIC ACID (VIT C) 500 MG TABLET PO SCH (08:10)
[2020-02-19] MEDS: ALPRAZolam 0.25 MG (XANAX) TAB PO SCH ×2 (08:10→21:21)
[2020-02-19] MEDS: METHIMAZOLE 5 MG PO SCH (08:10)
[2020-02-19] MEDS: PANTOPRAZOLE 40 MG (PROTONIX) TAB PO SCH ×2 (08:10→21:22)
[2020-02-19] MEDS: NIFEdipine ER 30 MG (PROCARDIA XL) TAB PO SCH (08:10)
[2020-02-19] MEDS: VALSARTAN 160 MG (DIOVAN) TABLET PO SCH (08:11)
[2020-02-19] MEDS: GABAPENTIN 300 MG (NEURONTIN) CAP PO SCH ×3 (08:11→21:22)
[2020-02-19] MEDS: VITAMIN D3 125 MCG (5,000 UNITS) CAPSULE PO SCH (08:11)
[2020-02-19] MEDS: ENOXAPARIN 40 MG/0.4 ML (LOVENOX) SYR SC SCH (08:11)
[2020-02-19] MEDS: ACETAMINOPHEN 650 MG PO SCH ×3 (08:12→21:20)
[2020-02-19] MEDS: SILDENAFIL 20 MG (REVATIO) TAB NON-FORMULARY PO SCH ×2 (08:12→21:23)
[2020-02-19] MEDS: TRIAMCINOLONE 0.1% CR (KENALOG) 80 GM TUBE TP PRN (08:14)
[2020-02-19] MEDS: DICLOFENAC 1% GEL 100 GM (VOLTAREN) TUBE TOP SCH ×4 (08:14→21:24)
[2020-02-19] MEDS: MICONAZOLE 2% POWDER (DESENEX AF) 90 GM TOP SCH ×2 (08:14→21:22)
[2020-02-19] MEDS: LIDOCAINE 4% (SALONPAS) PATCH TP SCH ×2 (08:20→21:21)
--- NOTE | 2020-02-19 12:28 | Physical Therapy Daily Note ---
PT Daily Note-Current Subjective Pt sitting in recliner upon arrival. Pt agrees to PT. Pain Numeric Pain Scale: 5-Moderate Pain Location Body Site: Knee Pain Description: Ache Mental Status Patient Orientation: Person, Place, Situation Attachments: Oxygen Transfers SCALE: Activities may be completed with or without assistive devices. 9-Ggnwrrksol-joaispb completes the activity by him/herself with no assistance from a helper. 5-Set-up or Clean-up Assistance-helper sets up or cleans up; patient completes activity. [place] assists only prior to or following the activity. 4-Supervision or Touching Assistance-helper provides verbal cues and/or touching/steadying and/or contact guard assistance as patient completes activity. Assistance may be provided throughout the activity or intermittently. 3-Partial/Moderate Assistance-helper does LESS THAN HALF the effort. [place] lifts, holds or supports trunk or limbs, but provides less than half the effort. 2-Substantial/Maximal Assistance-helper does MORE THAN HALF the effort. [place] lifts or holds trunk or limbs and provides more than half the effort. 9-Jrvgoflgh-unjouh does ALL the effort. Patient does none of the effort to complete the activity. Or, the assistance of 2 or more helpers is required for the patient to complete the activity. If activity was not attempted, code reason: 7-Patient Refused. 9-Not Applicable-not attempted and the patient did not perform the activity before the current illness, exacerbation or injury. 10-Not Attempted due to Environmental Limitations-(lack of equipment, weather restraints, etc.). 88-Not Attempted due to Medical Conditions or Safety Concerns. Weight Bearing Full Weight Bearing Full Weight Bearing Exercises Supine Ex: Ankle pumps, Quad Set, Glut sets, Heel Slides, Straight leg raise, Hip abd/add Supine Reps: 15 Treatments Pt reports achy R knee and agrees to EX to assist with strength. Pt completes Supine EX with RB as needed. Pt then has questions over how DC is decided, how AD are obtained as well as setting up HH vs OP Therapy. Pt resting at end of tx with all needs met, call light in hand. Assessment Current Status: Good Progress Pt still fatigues and needs RB during EX but improving with strength as well as activity tolerance during activities. PT Short Term Goals Short Term Goals Time Frame: Feb 04, 2020 Roll Left & Right: 4 Sit to lyin Lying to sitting on side of be: 3 Sit to stand: 3 Chair/ifk-ve-aulox transfer: 3 Walk 10 feet: 3 PT Crude Oil Driver Goals Crude Oil Driver Goals PT Crude Oil Driver Goals Time Frame: Feb 18, 2020 Roll Left & Right (QC): 6 Sit to Lying (QC): 4 Lying-Sitting on Side/Bed(QC): 4 Sit to Stand (QC): 3 (Shelby) Chair/Saf-aw-Iyoxn Xfer(QC): 3 (Shelby) Toilet Transfer (QC): 3 (Shelby) Car Transfer (QC): 3 (Shelby) Does the Patient Walk: No and Walking Goal IS indicated Walk 10 feet (QC): 3 Walk 50ft with 2 Turns (QC): 3 Walk 150 ft (QC): 88 Walking 10ft on Uneven Surface: 88 1 Step (curb) (QC): 88 4 Steps (QC): 88 12 Steps (QC): 88 Picking up an Object (QC): 88 Wheel 50 feet with 2 turns (QC: 6 Wheel 150 feet: 6 PT Plan Problem List Problem List: Activity Tolerance, Functional Strength, Transfer Treatment/Plan Treatment Plan: Continue Plan of Care Treatment Plan: Bed Mobility, Education, Functional Activity Renny, Functional Strength, Group Therapy, Gait, Safety, Therapeutic Exercise, Transfers Treatment Duration: Feb 18, 2020 Frequency: At least 5 of 7 days/Wk (IRF) Estimated Hrs Per Day: 1.5 hours per day Patient and/or Family Agrees t: Yes Safety Risks/Education Patient Education: Transfer Techniques, Correct Positioning, Safety Issues Teaching Recipient: Patient Teaching Methods: Discussion Response to Teaching: Verbalize Understanding Time/GCodes Time In: 1100 Time Out: 1140 Total Billed Treatment Time: 40 Total Billed Treatment 1, EX x2 (25m) & FA (15m) SIENNA PODN ACTIVITIES LEADER Feb 19, 2020 12:28
--- NOTE | 2020-02-19 12:56 | NUR ---
DR. HURD HERE AND INFORMED OF HYPERTENSION. NEW ORDER FOR AMLODIPINE. SEE ORDERS FOR DETAILS.
[2020-02-19] MEDS ORDERED: amLODIPine 5 MG (NORVASC) TAB PO ONE (13:00)
[2020-02-19 16:46] VITALS: BP 174/79
[2020-02-19] MEDS: ALPRAZolam 0.25 MG (XANAX) TAB PO PRN (16:50)
[2020-02-19] MEDS: MELATONIN 3 MG TABLET PO PRN (21:22)
[2020-02-19] MEDS: PRAMIPEXOLE 0.125 MG (MIRAPEX) TABLET PO SCH (21:22)
[2020-02-19] MEDS: SERTRALINE 50 MG (ZOLOFT) TABLET PO SCH (21:22)
[2020-02-20 06:23] VITALS: BP 162/77
[2020-02-20] MEDS: ALPRAZolam 0.25 MG (XANAX) TAB PO SCH ×2 (08:49→21:22)
[2020-02-20] MEDS: LACTOBACILLUS ACIDOPHILUS (PROBIOTIC) CAPSULE PO SCH ×2 (08:50→21:24)
[2020-02-20] MEDS: ENOXAPARIN 40 MG/0.4 ML (LOVENOX) SYR SC SCH (08:50)
[2020-02-20] MEDS: METHIMAZOLE 5 MG PO SCH (08:50)
[2020-02-20] MEDS: NIFEdipine ER 30 MG (PROCARDIA XL) TAB PO SCH (08:50)
[2020-02-20] MEDS: CYANOCOBALAMIN 1,000 MCG (VITAMIN B-12) TABLET PO SCH (08:50)
[2020-02-20] MEDS: SERTRALINE 100 MG (ZOLOFT) TAB PO SCH (08:50)
[2020-02-20] MEDS: ONDANSETRON 4 MG (ZOFRAN) ORAL DISSOLVE TAB PO PRN (08:50)
[2020-02-20] MEDS: VITAMIN D3 125 MCG (5,000 UNITS) CAPSULE PO SCH (08:50)
[2020-02-20] MEDS: ASCORBIC ACID (VIT C) 500 MG TABLET PO SCH (08:50)
[2020-02-20] MEDS: amLODIPine 5 MG (NORVASC) TAB PO SCH (08:50)
[2020-02-20] MEDS: VALSARTAN 160 MG (DIOVAN) TABLET PO SCH (08:50)
[2020-02-20] MEDS: GABAPENTIN 300 MG (NEURONTIN) CAP PO SCH ×3 (08:50→21:24)
[2020-02-20] MEDS: PANTOPRAZOLE 40 MG (PROTONIX) TAB PO SCH ×2 (08:51→21:22)
[2020-02-20] MEDS: MELOXICAM 7.5 MG (MOBIC) TABLET PO SCH (08:51)
[2020-02-20] MEDS: ACETAMINOPHEN 650 MG PO SCH ×3 (08:52→21:17)
[2020-02-20] MEDS: DICLOFENAC 1% GEL 100 GM (VOLTAREN) TUBE TOP SCH ×4 (08:54→21:27)
[2020-02-20] MEDS: LIDOCAINE 4% (SALONPAS) PATCH TP SCH ×2 (08:54→21:27)
[2020-02-20] MEDS: MICONAZOLE 2% POWDER (DESENEX AF) 90 GM TOP SCH ×2 (08:54→21:17)
[2020-02-20] MEDS: SILDENAFIL 20 MG (REVATIO) TAB NON-FORMULARY PO SCH ×2 (09:49→21:19)
[2020-02-20 11:03] VITALS: BP 144/78
[2020-02-20] MEDS: CALCIUM CARBONATE 500 MG (TUMS) TAB.CHEW PO PRN (11:06)
[2020-02-20] MEDS: TRIAMCINOLONE 0.1% CR (KENALOG) 80 GM TUBE TP PRN ×2 (11:06→19:08)
[2020-02-20] MEDS: COLESTIPOL 1 GM (COLESTID) TAB PO PRN (13:17)
--- NOTE | 2020-02-20 14:12 | PM&R Progress Note ---
Subjective HPI/CC On Admission Date Seen by Provider: Feb 20, 2020 Time Seen by Provider: 14:30 Subjective/Events-last exam 02/20/20: Rash better Working with the site to stand well NHP could still be required until she is able to walk and do more for herself at home Her is disabled himself 02/19/20: Participation with therapy going well No pain reported except right knee Likely will need NHP 02/18/20: Rash improved with cream No new pain reported Right knee pain limits her activity May need NH placement 02/17/20: Monitor ambulation ability Sit to stand Rash on back 02/16/20: Family training today with and son Desats quickly Very anxious at times Will need to evaluate the next step in her care after family education 02/15/20: Sit to stand is very helpful Family education tomorrow with to see if he can manage the sit to stand May not be an option to go home 02/14/20: Pain pill will be given at 6 am to help therapy Hgb good at 9.7 Overall looks pretty good Much improved 02/13/20: Stool softener will be changed to prn Imodium prn Today is 50st anniversary 02/12/20: Participating in therapy Sit to stand Monitor right knee pain 02/11/20: Sit to stand working well for her Weakness improved Xanax helps her Patch and Voltaren helps her right knee 02/10/20: Had an ill episode earlier today Labs and c diff no acute issues Now resolved Doing well currently 02/09/20: NO issues Uses sit to stand well Very weak 02/08/20: Using sit to stand and doing very well Bowels moved today A lot of pain issues Requires a lot of care 02/07/20: Room air maintained O2 sat but with the minimal exertion she goes down into the 80 percent Discontinue Colestid Overall feels like she is doing much better Able to use the sit to stand pretty well 02/06/20: Has multiple little complaints DC PICC since it simply did not function properly DC Venofer O2 on 1L/min 02/05/20: Tearful at times Right knee pain is terrible at times Mobic will be restarted along with other home meds that have now been reviewed 02/04/20: Using sit to stand very well Heels are red so managing that O2 on/off 02/03/20: Oxycodone and Xanax ordered APAP Skateboard Standing with assist Memory loss noted Less edema right knee BM 02/02: Pt doing pretty well Participating in therapy Very motivated to improve Maintained on O2 2 liters 02/01/20: Right knee pain continues but considering the risk for complications from steroi d injection after Covid, she will be managing Overall doing pretty well on 2 L of Oxygen Will replace Picc line since it was placed in the arm where she has had her previous mastectomy 01/31/20: Dr. Dent graciously agreed to see her for right knee pain and will initiate an injection Hgb 9.1 so midline will be placed with iron infusions 2 L of oxygen maintained After rounds Dr Dent updated me on the fact that no injection initiated due to high risk following COVID 01/30/20: Right knee pain continues Will reach out to Dr Dent tomorrow Tapazole restarted Midline needed for iron infusions Severe right knee pain 11/26 today so adjusted her pain meds and xray noted severe OA Dr Scott usually gives her a right knee injections every 3 months and she is overdue I will try to have ortho give pain injection Friday Tapazole not on her list and she has Graves disease she states O2 at 80% so will maintain 2L/min O2 Checking iron level since hgb 9.1 Adding TSH FT4 to labs BM today loose Review of Systems General: Fatigue, Malaise Objective Exam Vital Signs Vital Signs Date Time Temp Pulse Resp B/P (MAP) Pulse Ox O2 Delivery O2 Flow Rate FiO2 02/20/20 17:55 36.9 77 18 151/72 (98) 95 Nasal Cannula 1.00 Capillary Refill : Less Than 3 Seconds General Appearance: No Apparent Distress, WD/WN, Chronically ill HEENT: PERRL/EOMI, Normal ENT Inspection, Pharynx Normal Neck: Full Range of Motion, Normal Inspection, Non Tender, Supple, Carotid Bruit Respiratory: Chest Non Tender, Lungs Clear, No Accessory Muscle Use, No Respiratory Distress, Decreased Breath Sounds Cardiovascular: Regular Rate, Rhythm, No Edema, No Gallop, No JVD, No Murmur, Normal Peripheral Pulses Gastrointestinal: Normal Bowel Sounds, No Organomegaly, No Pulsatile Mass, Non Tender, Soft Back: Normal Inspection, No CVA Tenderness, No Vertebral Tenderness Extremity: Normal Capillary Refill, Normal Inspection, Normal Range of Motion, Non Tender, No Calf Tenderness, No Pedal Edema Neurologic/Psychiatric: Alert, Oriented x3, Normal Mood/Affect, audograph operator II-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 FIM Transfers Therapy Code Descriptions/Definitions Functional [place] Measure: 0=Not Assessed/NA 4=Minimal Assistance 1=Total Assistance 5=Supervision or Setup 2=Maximal Assistance 6=Modified [place] 3=Moderate Assistance 7=Complete IndependenceSCALE: Activities may be completed with or without assistive devices. 0-Bpbmuqxoqt-hounzvj completes the activity by him/herself with no assistance from a helper. 5-Set-up or Clean-up Assistance-helper sets up or cleans up; patient completes activity. [place] assists only prior to or following the activity. 4-Supervision or Touching Assistance-helper provides verbal cues and/or touching/steadying and/or contact guard assistance as patient completes activity. Assistance may be provided throughout the activity or intermittently. 3-Partial/Moderate Assistance-helper does LESS THAN HALF the effort. [place] lifts, holds or supports trunk or limbs, but provides less than half the effort. 2-Substantial/Maximal Assistance-helper does MORE THAN HALF the effort. [place] lifts or holds trunk or limbs and provides more than half the effort. 1-Qlqigstom-dylykj does ALL the effort. Patient does none of the effort to complete the activity. Or, the assistance of 2 or more helpers is required for the patient to complete the activity. If activity was not attempted, code reason: 7-Patient Refused. 9-Not Applicable-not attempted and the patient did not perform the activity before the current illness, exacerbation or injury. 10-Not Attempted due to Environmental Limitations-(lack of equipment, weather restraints, etc.). 88-Not Attempted due to Medical Conditions or Safety Concerns. Roll Left to Right (QC): 4 Sit to Lying (QC): 3 Sit to Stand (QC): 1 (STS lift used in room. Pt sit<>stands in // bars w/ Gia x2) Chair/Wdy-oe-Ewdyk Xfer(QC): 1 Car Transfer (QC): 1 Gait Training Does the Patient Walk?: No and Walking Goal IS indicated Distance: 6'x3 Walk 10 feet (QC): 88 Walk 50 ft with 2 Turns(QC): 88 Walk 150 ft (QC): 88 Walking 10ft/uneven surface-QC: 88 Gait Persons Needed: 2 Gait Assistive Device: Parallel Bars Wheelchair Training Does the Pt Use a Wheelchair?: Yes Distance: 50'x2 Wheel 50 ft with 2 turns (QC): 4 Wheel 150 ft (QC): 4 Type of Wheelchair: Manual Stair Training 1 Step (curb) (QC): 88 4 Steps (QC): 88 12 Steps (QC): 88 Balance Picking up an Object (QC): 88 ADL-Treatment Eating (QC): 6 (Pt set own meal up and used regular utensils to eat.) Oral Hygiene (QC): 6 Bathing Location: L Arm, R Arm, L Upper Leg, R Upper Leg, L Lower Leg (including foot), R Lower Leg (including foot), Chest, Abdomen, Perineal Area Shower/Bathe Self (QC): 3 Upper Body Dressing (QC): 5 Lower Body Dressing (QC): 2 On/Off Footwear (QC): 5 Toileting Hygiene (QC): 1 Toilet Transfer (QC): 1 Assessment/Plan Assessment and Plan Assess & Plan/Chief Complaint Assessment: Critical illness debility from COVID-19 dx 12/11/19 OA h/o breast cancer Allergic rhinitis HTN GERD Depression Lung nodules [facility] 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 since [facility] stable Grave's disease Anxiety Severe right knee pain from OA chronic Plan: IRF protocol Wean O2 Pain meds BM regimen 01/29/20: Restart Tapazole 5mg daily Knee injection by ortho will be pursued tomorrow O2 01/30/20: Right knee injection will be requested from Dr Dent Pain meds Tapazole O2 01/31/20: Knee injection not performed due to COVID related risk Monitor O2 Midline and Venofer 02/01/20: Monitor closely O2 wean IRF protocol 02/01/30: Monitor O2 Aggressive therapy 02/03/20: Stood with assist and parallel bars today Improved status IV Venofer after PICC changed 02/04/20: Monitor O2 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 02/05/20: O2 Mobic Home meds 02/06/20: DC PICC since it simply did not function properly O2 02/07/20: Monitor closely O2 wean Sit to stand 02/08/20: Participation good Monitor pain 02/09/20: Sit to stand Continue therapy 02/10/20: Labs reviewed Monitor illness closely 02/11/20: Monitor closely Pain control right knee 02/12/20: Monitor right knee pain O2 Increase activity 02/13/20: Imodium prn Sit to stand Right knee pain 02/14/20: Monitor closely Monitor pain 02/15/20: Family education with sit to stand to see if home is an option 02/17/20: Monitor ambulation Rash treatment 02/18/20: Continue treatment O2 wean 02/19/20: Monitor O2 Pain management 02/20/20: Check labs in am Monitor BP (1) Myopathy (2) COVID-19 (3) GERD (gastroesophageal reflux disease) (4) Hypoxia (5) HX: breast cancer (6) Anxiety (7) Depression JARRELL HURD DO Feb 20, 2020 14:12
[2020-02-20 17:55] VITALS: BP 151/72
[2020-02-20] MEDS: ESTROGENS CONJ. CREAM 30 GM (PREMARIN) TUBE PV SCH (21:18)
[2020-02-20] MEDS: MELATONIN 3 MG TABLET PO PRN (21:22)
[2020-02-20] MEDS: PRAMIPEXOLE 0.125 MG (MIRAPEX) TABLET PO SCH (21:22)
[2020-02-20] MEDS: SERTRALINE 50 MG (ZOLOFT) TABLET PO SCH (21:23)
[2020-02-20] MEDS: oxyCODONE/APAP 5/325MG (PERCOCET 5) TABLET PO PRN (21:23)
[2020-02-21 06:15] VITALS: BP 146/67
[2020-02-21 06:55] LABS: BASOPHILS % (AUTO) 1 % (0-10); EOSINOPHILS # (AUTO) 0.3 10^3/uL (0.0-0.3); EOSINOPHILS % (AUTO) 5 % (0-10); HEMATOCRIT 42 % (35-52); HEMOGLOBIN 12.6 g/dL (11.5-16.0); LYMPHOCYTES # (AUTO) 0.9 10^3/uL (1.0-4.0); LYMPHOCYTES % (AUTO) 16 % (12-44); MEAN CORPUSCULAR HEMOGLOBIN 30 pg (25-34); MEAN CORPUSCULAR HGB CONC 30 g/dL (32-36); MEAN CORPUSCULAR VOLUME 98 fL (80-99); MEAN PLATELET VOLUME 10.9 fL (9.0-12.2); MONOCYTES # (AUTO) 0.4 10^3/uL (0.0-1.0); MONOCYTES % (AUTO) 8 % (0-12); NEUTROPHILS % (AUTO) 71 % (42-75); PLATELET COUNT 183 10^3/uL (130-400); WHITE BLOOD COUNT 5.7 10^3/uL (4.3-11.0)
[2020-02-21 07:05] LABS: ALBUMIN 3.5 GM/DL (3.2-4.5); CHLORIDE 107 MMOL/L (98-107); POTASSIUM 4.1 MMOL/L (3.6-5.0); SODIUM 142 MMOL/L (135-145)
[2020-02-21 07:06] LABS: CALCIUM 9.9 MG/DL (8.5-10.1)
[2020-02-21 07:07] LABS: GLUCOSE 93 MG/DL (70-105)
[2020-02-21 07:08] LABS: TOTAL PROTEIN 6.1 GM/DL (6.4-8.2)
[2020-02-21 07:09] LABS: BILIRUBIN,TOTAL 0.3 MG/DL (0.1-1.0); CARBON DIOXIDE 25 MMOL/L (21-32)
[2020-02-21 07:11] LABS: ALKALINE PHOSPHATASE 30 U/L (40-136); CREATININE SERUM 0.64 MG/DL (0.60-1.30); GFR ESTIMATED > 60
[2020-02-21 07:12] LABS: BUN/CREATININE RATIO 14
[2020-02-21 07:14] LABS: ALANINE AMINOTRANSFERASE 7 U/L (0-55)
[2020-02-21] MEDS: ASCORBIC ACID (VIT C) 500 MG TABLET PO SCH (07:15)
[2020-02-21] MEDS: ALPRAZolam 0.25 MG (XANAX) TAB PO SCH ×2 (07:15→21:59)
[2020-02-21] MEDS: LACTOBACILLUS ACIDOPHILUS (PROBIOTIC) CAPSULE PO SCH ×2 (07:15→21:59)
[2020-02-21] MEDS: GABAPENTIN 300 MG (NEURONTIN) CAP PO SCH ×3 (07:15→21:59)
[2020-02-21] MEDS: METHIMAZOLE 5 MG PO SCH (07:16)
[2020-02-21] MEDS: VITAMIN D3 125 MCG (5,000 UNITS) CAPSULE PO SCH (07:16)
[2020-02-21] MEDS: PANTOPRAZOLE 40 MG (PROTONIX) TAB PO SCH ×2 (07:16→21:59)
[2020-02-21] MEDS: NIFEdipine ER 30 MG (PROCARDIA XL) TAB PO SCH (07:16)
[2020-02-21] MEDS: CYANOCOBALAMIN 1,000 MCG (VITAMIN B-12) TABLET PO SCH (07:16)
[2020-02-21] MEDS: MELOXICAM 7.5 MG (MOBIC) TABLET PO SCH (07:16)
[2020-02-21] MEDS: VALSARTAN 160 MG (DIOVAN) TABLET PO SCH (07:16)
[2020-02-21] MEDS: TRIAMCINOLONE 0.1% CR (KENALOG) 80 GM TUBE TP PRN (07:17)
[2020-02-21] MEDS: MICONAZOLE 2% POWDER (DESENEX AF) 90 GM TOP SCH ×2 (07:17→21:57)
[2020-02-21] MEDS: amLODIPine 5 MG (NORVASC) TAB PO SCH (07:17)
[2020-02-21] MEDS: SERTRALINE 100 MG (ZOLOFT) TAB PO SCH (07:17)
[2020-02-21] MEDS: ENOXAPARIN 40 MG/0.4 ML (LOVENOX) SYR SC SCH (07:17)
[2020-02-21] MEDS: LIDOCAINE 4% (SALONPAS) PATCH TP SCH ×2 (07:18→21:57)
[2020-02-21] MEDS: ACETAMINOPHEN 650 MG PO SCH ×3 (07:21→22:00)
[2020-02-21] MEDS: DICLOFENAC 1% GEL 100 GM (VOLTAREN) TUBE TOP SCH ×4 (07:24→21:57)
[2020-02-21] MEDS: SILDENAFIL 20 MG (REVATIO) TAB NON-FORMULARY PO SCH ×2 (07:27→21:58)
--- NOTE | 2020-02-21 08:33 | Occupational Ther Daily Note ---
OT Current Status-Daily Note Subjective Pt alert, sitting on BSC. Pt agrees to therapy. No c/o pain at this time. Pt states that family is under the impression that they are supposed to come up every Friday, will let SW know this. Mental Status/Objective Patient Orientation: Person, Place, Time, Situation Attachments: Oxygen ADL-Treatment Pt declines shower, agrees to sponge bath. After set up, pt able to complete all bathing sitting on SBA. Pt propped one foot on higher surface to be able to lift hip and lean to reach buttocks. Used long handle sponge to cleanse feet. After set up, pt donned/doffed upper body clothing and shoes by self. Assist to don/doff HANNAH hose. Pt used explosives operator to thread underwear over feet then pulled up B LE's, threaded pants by self and pulled up B LE's. Using sit to stand lift to stand then pt able to hike pants over hips. Pt propelled w/c to bathroom and completed grooming and oral care by self. Therapy Code Descriptions/Definitions Functional [place] Measure: 0=Not Assessed/NA 4=Minimal Assistance 1=Total Assistance 5=Supervision or Setup 2=Maximal Assistance 6=Modified [place] 3=Moderate Assistance 7=Complete IndependenceSCALE: Activities may be completed with or without assistive devices. 9-Ibglxossbo-exgouoe completes the activity by him/herself with no assistance from a helper. 5-Set-up or Clean-up Assistance-helper sets up or cleans up; patient completes activity. [place] assists only prior to or following the activity. 4-Supervision or Touching Assistance-helper provides verbal cues and/or touc betty/steadying and/or contact guard assistance as patient completes activity. Assistance may be provided throughout the activity or intermittently. 3-Partial/Moderate Assistance-helper does LESS THAN HALF the effort. [place] lifts, holds or supports trunk or limbs, but provides less than half the effort. 2-Substantial/Maximal Assistance-helper does MORE THAN HALF the effort. [place] lifts or holds trunk or limbs and provides more than half the effort. 8-Ljtaujpsc-fhlydh does ALL the effort. Patient does none of the effort to complete the activity. Or, the assistance of 2 or more helpers is required for the patient to complete the activity. If activity was not attempted, code reason: 7-Patient Refused. 9-Not Applicable-not attempted and the patient did not perform the activity before the current illness, exacerbation or injury. 10-Not Attempted due to Environmental Limitations-(lack of equipment, weather restraints, etc.). 88-Not Attempted due to Medical Conditions or Safety Concerns. Oral Hygiene (QC): 6 Shower/Bathe Self (QC): 5 Upper Body Dressing (QC): 5 Lower Body Dressing (QC): 2 On/Off Footwear: 3 Toileting Hygiene (QC): 3 Toilet Transfer (QC): 1 Other Treatment Co-treat with PT ([id number]), skills of 2 clinicians required for skilled care and instruction due to decrease mobility/transfers, decreased activity tolerance and increased SOA. PT focused on mobility, bed mobility and transfers while OT focused on hand placement during mobility/transfers and ADLs. Pt propelled w/c to therapy gym without breaks. Pt working on sit to stand with FWW and transfer using FWW. Pt requires multiple cues and encouragement to complete tasks. Monitored O2 throughout session, initially pt able to maintain 90% and above then pt became fatigued and required O2 to be placed and was able to maintain consistent O2 levels. Pt left in care of PT. All needs met. OT Short Term Goals Short Term Goals Time Frame: Feb 09, 2020 Toileting hygiene: 3 Lower body dressin Putting on/taking off footwear: 3 OT Mcfp Goals Bench Chemist Goals Time Frame: Mar 10, 2020 Eating (QC): 6 Oral Hygiene (QC): 6 Toileting Hygiene (QC): 6 Shower/Bathe Self (QC): 6 Upper Body Dressing (QC): 6 Lower Body Dressing (QC): 6 On/Off Footwear (QC): 6 Additional Goals: 1-Demonstrate ADL Tasks, 2-Verbalize Understanding, 3- ImproveStrength/Renny 1=Demonstrate adherence to instructed precautions during ADL tasks. 2=Patient will verbalize/demonstrate understanding of assistive devices/modifications for ADL. 3=Patient will improve strength/tolerance for activity to enable patient to perform ADL's. OT Education/Plan Problem List/Assessment Assessment: Decreased Activ Tolerance, Decreased UE Strength, Dependent Transfers, Impaired Coordination, Impaired Funct Balance, Impaired Self-Care Skills, Restricted Funct UE ROM Discharge Recommendations Plan/Recommendations: Continue POC Treatment Plan/Plan of Care Patient would benefit from OT for education, treatment and training to promote independence in ADL's, mobility, safety and/or upper extremity function for ADL's. Plan of Care: ADL Retraining, Functional Mobility, Group Exercise/Act as Ind, UE Funct Exercise/Act Treatment Duration: Feb 18, 2020 Frequency: At least 5 of 7 days/Wk (IRF) Estimated Hrs Per Day: 1.5 hours per day Agreement: Yes Rehab Potential: Fair Time/GCodes Start Time: 07:15 Stop Time: 08:30 Total Time Billed (hr/min): 75 Billed Treatment Time 1 visit-ADL 3 (45 min) FA 2 (30 min) co-treat with PT [id number], individual [id number] DENI GRISSOM Feb 21, 2020 08:33
--- NOTE | 2020-02-21 09:06 | Physical Therapy Daily Note ---
PT Daily Note-Current Subjective Pt. with OT, agrees to Rx. Shares that there is a little skirmish in her family as her DIL has stated she has been informed that family training is scheduled for every Wed and her (pts son) cannot come again this Wed and the daughter who lives in [place] will need to come for this. Pt. states she told DIL she did not believe family training was scheduled again and needs this confirmed to alleviate the family tension. This TURFGRASS TECHNICIAN shared this with SW who also agrees there is no further family training scheduled at this time. Pt. also expresses worry and anxiety that she will be sent home too soon or wont be ready. Pt. was assured this team is top notch and will meet her needs right through appropriate DC timing etc. Pt. c/o discomfort right knee but does not rate. Pain Location: Right Location Body Site: Knee Pain Description: Ache Comment: with wt bearing Mental Status Patient Orientation: Normal For Age Attachments: Oxygen (1-1.5 L) Transfers SCALE: Activities may be completed with or without assistive devices. 8-Lrflslmcgg-uoshfce completes the activity by him/herself with no assistance from a helper. 5-Set-up or Clean-up Assistance-helper sets up or cleans up; patient completes activity. [place] assists only prior to or following the activity. 4-Supervision or Touching Assistance-helper provides verbal cues and/or touching/steadying and/or contact guard assistance as patient completes activity. Assistance may be provided throughout the activity or intermittently. 3-Partial/Moderate Assistance-helper does LESS THAN HALF the effort. [place] lifts, holds or supports trunk or limbs, but provides less than half the effort. 2-Substantial/Maximal Assistance-helper does MORE THAN HALF the effort. [place] lifts or holds trunk or limbs and provides more than half the effort. 1-Nrtzlxhlv-evkruf does ALL the effort. Patient does none of the effort to complete the activity. Or, the assistance of 2 or more helpers is required for the patient to complete the activity. If activity was not attempted, code reason: 7-Patient Refused. 9-Not Applicable-not attempted and the patient did not perform the activity be fore the current illness, exacerbation or injury. 10-Not Attempted due to Environmental Limitations-(lack of equipment, weather restraints, etc.). 88-Not Attempted due to Medical Conditions or Safety Concerns. Roll Left & Right (QC): 6 Sit to Lying (QC): 5 Lying to Sitting/Side of Bed(Q: 5 Sit to Stand (QC): 4 Chair/Smh-aa-Wshej Xfer(QC): 3 pt. progressing well with TRFs sit to stand as well as SPTs w/c to chair, w/c to bed and back. Pt. needs step by step direction and assist to move FWW and assist of PT and OT for trunk and use of UEs for all steps of TRF. Weight Bearing Full Weight Bearing Full Weight Bearing Gait Training Does the Patient Walk?: Yes Gait Assistive Device: FWW initial steps wtih FWW taken this date, w/c to Rx table, Rx table to w/c and w/c to recliner, 4-5 steps side ways each trial but a functional start to improved gait requiring mod to min assist and instruction of 2 skilled clinicians as well as support for trunk and stability etc Wheelchair Training Does the Pt Use a Wheelchair?: Yes Wheel 50 ft with 2 turns (QC): 6 Wheel 150 ft (QC): 6 Type of Wheelchair: Manual slow, needs instruction for turns as well as approach and alignment to destination etc Exercises Supine Ex: Bridging, Rolling, Heel Slides Supine Reps: 12 Seated Therapy Exercises: Ankle pumps, Sit to stand, Long arc quads, Hip flexion Seated Reps: 10 Treatments PT OT co Rx for above Rx with 2 skilled clinicians overseeing , instructing and assisting jointly for safe effective Rx rendering good progress for funct mob Assessment Current Status: Good Progress improved w/c mob, improved sit to stand, improved pregait activity, improved TRF w/c to bed . Pt. with O2 at 1-2 L and sats 88-95% through Rx. Pt with anxiety and will check with nursing that pt is perhaps being medicated for this as pt. mentioned PT Short Term Goals Short Term Goals Time Frame: Feb 04, 2020 Roll Left & Right: 4 Sit to lyin Lying to sitting on side of be: 3 Sit to stand: 3 Chair/koy-sl-sipgj transfer: 3 Walk 10 feet: 3 PT Radiation Oncologist Goals Correction Goals PT Radiation Oncologist Goals Time Frame: Feb 18, 2020 Roll Left & Right (QC): 6 Sit to Lying (QC): 4 Lying-Sitting on Side/Bed(QC): 4 Sit to Stand (QC): 3 ([place]) Chair/Axp-ig-Dquwe Xfer(QC): 3 ([place]) Toilet Transfer (QC): 3 ([place]) Car Transfer (QC): 3 ([place]) Does the Patient Walk: No and Walking Goal IS indicated Walk 10 feet (QC): 3 Walk 50ft with 2 Turns (QC): 3 Walk 150 ft (QC): 88 Walking 10ft on Uneven Surface: 88 1 Step (curb) (QC): 88 4 Steps (QC): 88 12 Steps (QC): 88 Picking up an Object (QC): 88 Wheel 50 feet with 2 turns (QC: 6 Wheel 150 feet: 6 PT Plan Treatment/Plan Treatment Plan: Continue Plan of Care Treatment Plan: Bed Mobility, Education, Functional Activity Renny, Functional Strength, Group Therapy, Gait, Safety, Therapeutic Exercise, Transfers Treatment Duration: Feb 18, 2020 Frequency: At least 5 of 7 days/Wk (IRF) Estimated Hrs Per Day: 1.5 hours per day Patient and/or Family Agrees t: Yes Safety Risks/Education Patient Education: Gait Training, Transfer Techniques, Correct Positioning, W/C Management, Disease Process, Safety Issues Teaching Recipient: Patient Teaching Methods: Demonstration, Discussion Response to Teaching: Verbalize Understanding, Return Demonstration, Reinforcement Needed Time/GCodes Time In: 800 Time Out: 900 Total Billed Treatment Time: 60 Total Billed Treatment 1,WC15m,FA35m,EX10m (30 co Rx with OT) KENZIE MORE TURFGRASS TECHNICIAN Feb 21, 2020 09:06
--- NOTE | 2020-02-21 09:13 | PM&R Progress Note ---
Subjective HPI/CC On Admission Date Seen by Provider: Feb 21, 2020 Time Seen by Provider: 09:30 Subjective/Events-last exam 02/21/20: Pt doing pretty well Bowels moved yesterday Oxygen remains at 1 liters Overall having some significant issues and continues to work with the sit to stand to try to be able to ambulate and return to independent living with her and her son helping out Will try to do everything we can to make that happen for her 02/20/20: Rash better Working with the site to stand well NHP could still be required until she is able to walk and do more for herself at home Her is disabled himself 02/19/20: Participation with therapy going well No pain reported except right knee Likely will need NHP 02/18/20: Rash improved with cream No new pain reported Right knee pain limits her activity May need NH placement 02/17/20: Monitor ambulation ability Sit to stand Rash on back 02/16/20: Family training today with and son Desats quickly Very anxious at times Will need to evaluate the next step in her care after family education 02/15/20: Sit to stand is very helpful Family education tomorrow with to see if he can manage the sit to stand May not be an option to go home 02/14/20: Pain pill will be given at 6 am to help therapy Hgb good at 9.7 Overall looks pretty good Much improved 02/13/20: Stool softener will be changed to prn Imodium prn Today is 50st anniversary 02/12/20: Participating in therapy Sit to stand Monitor right knee pain 02/11/20: Sit to stand working well for her Weakness improved Xanax helps her Patch and Voltaren helps her right knee 02/10/20: Had an ill episode earlier today Labs and c diff no acute issues Now resolved Doing well currently 02/09/20: NO issues Uses sit to stand well Very weak 02/08/20: Using sit to stand and doing very well Bowels moved today A lot of pain issues Requires a lot of care 02/07/20: Room air maintained O2 sat but with the minimal exertion she goes down into the 80 percent Discontinue Colestid Overall feels like she is doing much better Able to use the sit to stand pretty well 02/06/20: Has multiple little complaints DC PICC since it simply did not function properly DC Venofer O2 on 1L/min 02/05/20: Tearful at times Right knee pain is terrible at times Mobic will be restarted along with other home meds that have now been reviewed 02/04/20: Using sit to stand very well Heels are red so managing that O2 on/off 02/03/20: Oxycodone and Xanax ordered APAP Skateboard Standing with assist Memory loss noted Less edema right knee BM 02/02: Pt doing pretty well Participating in therapy Very motivated to improve Maintained on O2 2 liters 02/01/20: Right knee pain continues but considering the risk for complications from steroid injection after Covid, she will be managing Overall doing pretty well on 2 L of Oxygen Will replace Picc line since it was placed in the arm where she has had her previous mastectomy 01/31/20: Dr. Dent graciously agreed to see her for right knee pain and will initiate an injection Hgb 9.1 so midline will be placed with iron infusions 2 L of oxygen maintained After rounds Dr Dent updated me on the fact that no injection initiated due to high risk following COVID 01/30/20: Right knee pain continues Will reach out to Dr Dent tomorrow Tapazole restarted Midline needed for iron infusions Severe right knee pain 11/26 today so adjusted her pain meds and xray noted severe OA Dr Scott usually gives her a right knee injections every 3 months and she is overdue I will try to have ortho give pain injection Friday Tapazole not on her list and she has Graves disease she states O2 at 80% so will maintain 2L/min O2 Checking iron level since hgb 9.1 Adding TSH FT4 to labs BM today loose Review of Systems General: Fatigue, Malaise Neurological: Weakness, Incoordination Objective Exam Vital Signs Vital Signs Date Time Temp Pulse Resp B/P (MAP) Pulse Ox O2 Delivery O2 Flow Rate FiO2 02/22/20 20:20 Nasal Cannula 1.00 02/22/20 16:38 37.0 76 20 146/69 (94) 95 Capillary Refill : Less Than 3 Seconds General Appearance: No Apparent Distress, WD/WN, Chronically ill HEENT: PERRL/EOMI, Normal ENT Inspection, Pharynx Normal Neck: Full Range of Motion, Normal Inspection, Non Tender, Supple, Carotid Bruit Respiratory: Chest Non Tender, Lungs Clear, No Accessory Muscle Use, No Respiratory Distress, Decreased Breath Sounds Cardiovascular: Regular Rate, Rhythm, No Edema, No Gallop, No JVD, No Murmur, Normal Peripheral Pulses Gastrointestinal: Normal Bowel Sounds, No Organomegaly, No Pulsatile Mass, Non Tender, Soft Back: Normal Inspection, No CVA Tenderness, No Vertebral Tenderness Extremity: Normal Capillary Refill, Normal Inspection, Normal Range of Motion, Non Tender, No Calf Tenderness, No Pedal Edema Neurologic/Psychiatric: Alert, Oriented x3, Normal Mood/Affect, solidworks mechanical designer II-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 FIM Transfers Therapy Code Descriptions/Definitions Functional [place] Measure: 0=Not Assessed/NA 4=Minimal Assistance 1=Total Assistance 5=Supervision or Setup 2=Maximal Assistance 6=Modified [place] 3=Moderate Assistance 7=Complete IndependenceSCALE: Activities may be completed with or without assistive devices. 2-Nvmpbeindf-sspridp completes the activity by him/herself with no assistance from a helper. 5-Set-up or Clean-up Assistance-helper sets up or cleans up; patient completes activity. [place] assists only prior to or following the activity. 4-Supervision or Touching Assistance-helper provides verbal cues and/or touching/steadying and/or contact guard assistance as patient completes activity. Assistance may be provided throughout the activity or intermittently. 3-Partial/Moderate Assistance-helper does LESS THAN HALF the effort. [place] lifts, holds or supports trunk or limbs, but provides less than half the effort. 2-Substantial/Maximal Assistance-helper does MORE THAN HALF the effort. [place] lifts or holds trunk or limbs and provides more than half the effort. 7-Bukvdjzlg-hryrzs does ALL the effort. Patient does none of the effort to complete the activity. Or, the assistance of 2 or more helpers is required for the patient to complete the activity. If activity was not attempted, code reason: 7-Patient Refused. 9-Not Applicable-not attempted and the patient did not perform the activity before the current illness, exacerbation or injury. 10-Not Attempted due to Environmental Limitations-(lack of equipment, weather restraints, etc.). 88-Not Attempted due to Medical Conditions or Safety Concerns. Roll Left to Right (QC): 4 Sit to Lying (QC): 3 Sit to Stand (QC): 1 (STS lift used in room. Pt sit<>stands in // bars w/ Gia x2) Chair/Ryf-cd-Tzesk Xfer(QC): 1 Car Transfer (QC): 1 Gait Training Does the Patient Walk?: No and Walking Goal IS indicated Distance: 6'x3 Walk 10 feet (QC): 88 Walk 50 ft with 2 Turns(QC): 88 Walk 150 ft (QC): 88 Walking 10ft/uneven surface-QC: 88 Gait Persons Needed: 2 Gait Assistive Device: Parallel Bars Wheelchair Training Does the Pt Use a Wheelchair?: Yes Distance: 50'x2 Wheel 50 ft with 2 turns (QC): 4 Wheel 150 ft (QC): 4 Type of Wheelchair: Manual Stair Training 1 Step (curb) (QC): 88 4 Steps (QC): 88 12 Steps (QC): 88 Balance Picking up an Object (QC): 88 ADL-Treatment Eating (QC): 6 (Pt set own meal up and used regular utensils to eat.) Oral Hygiene (QC): 6 Bathing Location: L Arm, R Arm, L Upper Leg, R Upper Leg, L Lower Leg (including foot), R Lower Leg (including foot), Chest, Abdomen, Perineal Area Shower/Bathe Self (QC): 3 Upper Body Dressing (QC): 5 Lower Body Dressing (QC): 2 On/Off Footwear (QC): 5 Toileting Hygiene (QC): 1 Toilet Transfer (QC): 1 Assessment/Plan Assessment and Plan Assess & Plan/Chief Complaint Assessment: Critical illness debility from COVID-19 dx 12/11/19 OA h/o breast cancer Allergic rhinitis HTN GERD Depression Lung nodules [facility] 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 Grave's disease Anxiety Severe right knee pain from OA chronic Plan: IRF protocol Wean O2 Pain meds BM regimen 01/29/20: Restart Tapazole 5mg daily Knee injection by ortho will be pursued tomorrow O2 01/30/20: Right knee injection will be requested from Dr Dent Pain meds Tapazole O2 01/31/20: Knee injection not performed due to COVID related risk Monitor O2 Midline and Venofer 02/01/20: Monitor closely O2 wean IRF protocol 02/01/30: Monitor O2 Aggressive therapy 02/03/20: Stood with assist and parallel bars today Improved status IV Venofer after PICC changed 02/04/20: Monitor O2 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 02/05/20: O2 Mobic Home meds 02/06/20: DC PICC since it simply did not function properly O2 02/07/20: Monitor closely O2 wean Sit to stand 02/08/20: Participation good Monitor pain 02/09/20: Sit to stand Continue therapy 02/10/20: Labs reviewed Monitor illness closely 02/11/20: Monitor closely Pain control right knee 02/12/20: Monitor right knee pain O2 Increase activity 02/13/20: Imodium prn Sit to stand Right knee pain 02/14/20: Monitor closely Monitor pain 02/15/20: Family education with sit to stand to see if home is an option 02/17/20: Monitor ambulation Rash treatment 02/18/20: Continue treatment O2 wean 02/19/20: Monitor O2 Pain management 02/20/20: Check labs in am Monitor BP 02/21/20: Labs reviewed Improved status Hemoglobin normal now (1) Myopathy (2) COVID-19 (3) GERD (gastroesophageal reflux disease) (4) Hypoxia (5) HX: breast cancer (6) Anxiety (7) Depression JARRELL HURD DO Feb 21, 2020 09:13
--- NOTE | 2020-02-21 13:28 | Physical Therapy Daily Note ---
PT Daily Note-Current Subjective Pt. agrees to Rx, agrees to learn exercises she can do while alone in her room up in chair or in bed Pain Location: No Pain Reported Mental Status Patient Orientation: Normal For Age Attachments: Oxygen Transfers SCALE: Activities may be completed with or without assistive devices. 7-Lwwrmtimga-twnlgvn completes the activity by him/herself with no assistance from a helper. 5-Set-up or Clean-up Assistance-helper sets up or cleans up; patient completes activity. [place] assists only prior to or following the activity. 4-Supervision or Touching Assistance-helper provides verbal cues and/or touching/steadying and/or contact guard assistance as patient completes activity. Assistance may be provided throughout the activity or intermittently. 3-Partial/Moderate Assistance-helper does LESS THAN HALF the effort. [place] lifts, holds or supports trunk or limbs, but provides less than half the effort. 2-Substantial/Maximal Assistance-helper does MORE THAN HALF the effort. [place] lifts or holds trunk or limbs and provides more than half the effort. 5-Gdxdfvnii-gqjpvp does ALL the effort. Patient does none of the effort to complete the activity. Or, the assistance of 2 or more helpers is required for the patient to complete the activity. If activity was not attempted, code reason: 7-Patient Refused. 9-Not Applicable-not attempted and the patient did not perform the activity before the current illness, exacerbation or injury. 10-Not Attempted due to Environmental Limitations-(lack of equipment, weather restraints, etc.). 88-Not Attempted due to Medical Conditions or Safety Concerns. Weight Bearing Full Weight Bearing Full Weight Bearing Exercises Supine Ex: Bridging, Ankle pumps, Quad Set, Glut sets, Heel Slides, Scooting (up in reclined chair), Straight leg raise, Hip abd/add Supine Reps: 15 Seated Therapy Exercises: Ankle pumps, Long arc quads, Hip flexion Seated Reps: 15 Treatments exercise program as well as how to manage recliner for position she can do LE exercises in. Assessment Current Status: Good Progress PT Short Term Goals Short Term Goals Time Frame: Feb 04, 2020 Roll Left & Right: 4 Sit to lyin Lying to sitting on side of be: 3 Sit to stand: 3 Chair/lfm-ge-quayx transfer: 3 Walk 10 feet: 3 PT Digital Director Goals Digital Director Goals PT Longterm Goals Time Frame: Feb 18, 2020 Roll Left & Right (QC): 6 Sit to Lying (QC): 4 Lying-Sitting on Side/Bed(QC): 4 Sit to Stand (QC): 3 ([place]) Chair/Nhw-nd-Onxhl Xfer(QC): 3 ([place]) Toilet Transfer (QC): 3 ([place]) Car Transfer (QC): 3 ([place]) Does the Patient Walk: No and Walking Goal IS indicated Walk 10 feet (QC): 3 Walk 50ft with 2 Turns (QC): 3 Walk 150 ft (QC): 88 Walking 10ft on Uneven Surface: 88 1 Step (curb) (QC): 88 4 Steps (QC): 88 12 Steps (QC): 88 Picking up an Object (QC): 88 Wheel 50 feet with 2 turns (QC: 6 Wheel 150 feet: 6 PT Plan Treatment/Plan Treatment Plan: Continue Plan of Care Treatment Plan: Bed Mobility, Education, Functional Activity Renny, Functional Strength, Group Therapy, Gait, Safety, Therapeutic Exercise, Transfers Treatment Duration: Feb 18, 2020 Frequency: At least 5 of 7 days/Wk (IRF) Estimated Hrs Per Day: 1.5 hours per day Patient and/or Family Agrees t: Yes Safety Risks/Education Patient Education: Issued Written HEP, Correct Positioning Teaching Recipient: Patient Teaching Methods: Demonstration, Discussion Response to Teaching: Verbalize Understanding, Return Demonstration, Reinforcement Needed Time/GCodes Time In: 1145 Time Out: 1200 Total Billed Treatment Time: 15 Total Billed Treatment 1,EX15m KENZIE MORE DISEASE MANAGEMENT NURSE Feb 21, 2020 13:28
--- NOTE | 2020-02-21 13:44 | Speech Therapy Daily Note ---
Speech Daily Progress Note Subjective Date Seen by Provider: Feb 21, 2020 Time Seen by Provider: 00:30 Patient was resting in her recliner when I entered her room. Objective Patient completed a series of safety awareness related to her daily needs with 90% given minimal cuing. Assessment Assessment Current Status: Good Progress Speech Short Term Goals Short Term Goals Short Term Goals 1) Patient will follow/recall multi step directions for wheelchair mobility without cues at 90% or greater. 2) Patient will recall sequencing for daily activities without cues at 90% or greater. Speech Hazardous Materials Driver Goals Hazardous Materials Driver Goals Patient will demonstrate safety awareness with all daily activities and p rocesses. Speech-Plan Patient/Family Goals Patient/Family Goals: Patient plans on returning to her home where she lives with her upon discharge. Treatment Plan Speech Therapy Treatment Plan: Continue Plan of Care Treatment Duration: Jan 31, 2020 Frequency: 4 times per week (Patient will receive ST 4-5x per week) Estimated Hrs Per Day: .5 hour per day Rehab Potential: Fair Barriers to Learning: Patient's recent lengthy dillon with COVID. Pt/Family Agrees to Plan: Yes Safety Risks/Education Teaching Recipient: Patient, Primary Caregiver, Significant Other Teaching Methods: Demonstration, Discussion Response to Teaching: Verbalize Understanding, Return Demonstration Education Topics Provided: Continued safety within her room Time Speech Therapy Time In: 10:00 Speech Therapy Time Out: 10:30 Total Billed Time: 30 Billed Treatment Time 1MILLIE [address] ST Feb 21, 2020 13:44
--- NOTE | 2020-02-21 18:01 | NUR ---
"RD ASSESSMENT PMHx: pneumonia; COVID; hypercholesterolemia; GERD; hypothyroidism; CA(breast) PT INTERACTION: Pt was awake and pleasant during nutrition follow-up. Pt states she has been eating well since last assessment. Note avg PO intake >75% x4d, per chart review. Pt states some issues with diarrhea since last assessment. Note last BM was 1/, and pt currently on bowel regimen of colace PRN, and senna PRN, per chart review. Est. kcal needs: 5726-0396 kcal | 15-20 kcal/kg Est. Pro needs: 80-96 g Pro | 1.0-1.2 g Pro/kg PES STATEMENT: Given current appetite, no nutrition diagnosis at this time (NO-1.1). INTERVENTION: Continue with current diet order of Regular diet. Will continue to follow and reassess as pt needs, intake, and status change. Patricia LIMA MS RD LD [phone] cell"
[2020-02-21 18:21] VITALS: BP 147/67
[2020-02-21] MEDS: PRAMIPEXOLE 0.125 MG (MIRAPEX) TABLET PO SCH (21:58)
[2020-02-21] MEDS: MELATONIN 3 MG TABLET PO PRN (21:58)
[2020-02-21] MEDS: SERTRALINE 50 MG (ZOLOFT) TABLET PO SCH (21:59)
[2020-02-21] MEDS: oxyCODONE/APAP 5/325MG (PERCOCET 5) TABLET PO PRN (21:59)
[2020-02-22 06:40] VITALS: BP 163/68
[2020-02-22 08:00] VITALS: BP 145/69
--- NOTE | 2020-02-22 08:56 | PM&R Progress Note ---
Subjective HPI/CC On Admission Date Seen by Provider: Feb 22, 2020 Time Seen by Provider: 08:30 Subjective/Events-last exam 02/22/20: Progressing very well Using still koc-ox-ueywa Weaning oxygen but she does desat during activity Team meeting tomorrow regarding disposition 02/21/20: Pt doing pretty well Bowels moved yesterday Oxygen remains at 1 liters Overall having some significant issues and continues to work with the sit to stand to try to be able to ambulate and return to independent living with her and her son helping out Will try to do everything we can to make that happen for her 02/20/20: Rash better Working with the site to stand well NHP could still be required until she is able to walk and do more for herself at home Her is disabled himself 02/19/20: Participation with therapy going well No pain reported except right knee Likely will need NHP 02/18/20: Rash improved with cream No new pain reported Right knee pain limits her activity May need NH placement 02/17/20: Monitor ambulation ability Sit to stand Rash on back 02/16/20: Family training today with and son Desats quickly Very anxious at times Will need to evaluate the next step in her care after family education 02/15/20: Sit to stand is very helpful Family education tomorrow with to see if he can manage the sit to stand May not be an option to go home 02/14/20: Pain pill will be given at 6 am to help therapy Hgb good at 9.7 Overall looks pretty good Much improved 02/13/20: Stool softener will be changed to prn Imodium prn Today is 50st anniversary 02/12/20: Participating in therapy Sit to stand Monitor right knee pain 02/11/20: Sit to stand working well for her Weakness improved Xanax helps her Patch and Voltaren helps her right knee 02/10/20: Had an ill episode earlier today Labs and c diff no acute issues Now resolved Doing well currently 02/09/20: NO issues Uses sit to stand well Very weak 02/08/20: Using sit to stand and doing very well Bowels moved today A lot of pain issues Requires a lot of care 02/07/20: Room air maintained O2 sat but with the minimal exertion she goes down into the 80 percent Discontinue Colestid Overall feels like she is doing much better Able to use the sit to stand pretty well 02/06/20: Has multiple little complaints DC PICC since it simply did not function properly DC Venofer O2 on 1L/min 02/05/20: Tearful at times Right knee pain is terrible at times Mobic will be restarted along with other home meds that have now been reviewed 02/04/20: Using sit to stand very well Heels are red so managing that O2 on/off 02/03/20: Oxycodone and Xanax ordered APAP Skateboard Standing with assist Memory loss noted Less edema right knee BM 02/02: Pt doing pretty well Participating in therapy Very motivated to improve Maintained on O2 2 liters 02/01/20: Right knee pain continues but considering the risk for complications from steroid injection after Covid, she will be managing Overall doing pretty well on 2 L of Oxygen Will replace Picc line since it was placed in the arm where she has had her previous mastectomy 01/31/20: Dr. Dent graciously agreed to see her for right knee pain and will initiate an injection Hgb 9.1 so midline will be placed with iron infusions 2 L of oxygen maintained After rounds Dr Dent updated me on the fact that no injection initiated due to high risk following COVID 01/30/20: Right knee pain continues Will reach out to Dr Dent tomorrow Tapazole restarted Midline needed for iron infusions Severe right knee pain 10/10 today so adjusted her pain meds and xray noted severe OA Dr Scott usually gives her a right knee injections every 3 months and she is overdue I will try to have ortho give pain injection Friday Tapazole not on her list and she has Graves disease she states O2 at 80% so will maintain 2L/min O2 Checking iron level since hgb 9.1 Adding TSH FT4 to labs BM today loose Review of Systems Neurological: Weakness, Incoordination Objective Exam Vital Signs Vital Signs Date Time Temp Pulse Resp B/P (MAP) Pulse Ox O2 Delivery O2 Flow Rate FiO2 02/22/20 20:20 Nasal Cannula 1.00 02/22/20 16:38 37.0 76 20 146/69 (94) 95 Capillary Refill : Less Than 3 Seconds General Appearance: No Apparent Distress, WD/WN, Chronically ill HEENT: PERRL/EOMI, Normal ENT Inspection, Pharynx Normal Neck: Full Range of Motion, Normal Inspection, Non Tender, Supple, Carotid Bruit Respiratory: Chest Non Tender, Lungs Clear, No Accessory Muscle Use, No Respiratory Distress, Decreased Breath Sounds Cardiovascular: Regular Rate, Rhythm, No Edema, No Gallop, No JVD, No Murmur, Normal Peripheral Pulses Gastrointestinal: Normal Bowel Sounds, No Organomegaly, No Pulsatile Mass, Non Tender, Soft Back: Normal Inspection, No CVA Tenderness, No Vertebral Tenderness Extremity: Normal Capillary Refill, Normal Inspection, Normal Range of Motion, Non Tender, No Calf Tenderness, No Pedal Edema Neurologic/Psychiatric: Alert, Oriented x3, Normal 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 FIM Transfers Therapy Code Descriptions/Definitions Functional [place] Measure: 0=Not Assessed/NA 4=Minimal Assistance 1=Total Assistance 5=Supervision or Setup 2=Maximal Assistance 6=Modified [place] 3=Moderate Assistance 7=Complete IndependenceSCALE: Activities may be completed with or without assistive devices. 5-Atmduvwzsh-itvesiv completes the activity by him/herself with no assistance from a helper. 5-Set-up or Clean-up Assistance-helper sets up or cleans up; patient completes activity. [place] assists only prior to or following the activity. 4-Supervision or Touching Assistance-helper provides verbal cues and/or touching/steadying and/or contact guard assistance as patient completes activity. Assistance may be provided throughout the activity or intermittently. 3-Partial/Moderate Assistance-helper does LESS THAN HALF the effort. [place] lifts, holds or supports trunk or limbs, but provides less than half the effort. 2-Substantial/Maximal Assistance-helper does MORE THAN HALF the effort. [place] lifts or holds trunk or limbs and provides more than half the effort. 1-Ggtbgeudo-ahoqon does ALL the effort. Patient does none of the effort to complete the activity. Or, the assistance of 2 or more helpers is required for the patient to complete the activity. If activity was not attempted, code reason: 7-Patient Refused. 9-Not Applicable-not attempted and the patient did not perform the activity before the current illness, exacerbation or injury. 10-Not Attempted due to Environmental Limitations-(lack of equipment, weather restraints, etc.). 88-Not Attempted due to Medical Conditions or Safety Concerns. Roll Left to Right (QC): 6 Sit to Lying (QC): 5 Sit to Stand (QC): 4 Chair/Brj-sg-Qjyzd Xfer(QC): 3 Car Transfer (QC): 1 Gait Training Does the Patient Walk?: Yes Distance: 6'x3 Walk 10 feet (QC): 88 Walk 50 ft with 2 Turns(QC): 88 Walk 150 ft (QC): 88 Walking 10ft/uneven surface-QC: 88 Gait Persons Needed: 2 Gait Assistive Device: FWW Wheelchair Training Does the Pt Use a Wheelchair?: Yes Distance: 50'x2 Wheel 50 ft with 2 turns (QC): 6 Wheel 150 ft (QC): 6 Type of Wheelchair: Manual Stair Training 1 Step (curb) (QC): 88 4 Steps (QC): 88 12 Steps (QC): 88 Balance Picking up an Object (QC): 88 ADL-Treatment Eating (QC): 6 (Pt set own meal up and used regular utensils to eat.) Oral Hygiene (QC): 6 Bathing Location: L Arm, R Arm, L Upper Leg, R Upper Leg, L Lower Leg (including foot), R Lower Leg (including foot), Chest, Abdomen, Perineal Area Shower/Bathe Self (QC): 5 Upper Body Dressing (QC): 5 Lower Body Dressing (QC): 2 On/Off Footwear (QC): 3 Toileting Hygiene (QC): 3 Toilet Transfer (QC): 1 Assessment/Plan Assessment and Plan Assess & Plan/Chief Complaint Assessment: Critical illness debility from COVID-19 dx 12/11/19 OA h/o breast cancer Allergic rhinitis HTN GERD Depression Lung nodules [facility]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 Grave's disease Anxiety Severe right knee pain from OA chronic Plan: IRF protocol Wean O2 Pain meds BM regimen 01/29/20: Restart Tapazole 5mg daily Knee injection by ortho will be pursued tomorrow O2 01/30/20: Right knee injection will be requested from Dr Dent Pain meds Tapazole O2 01/31/20: Knee injection not performed due to COVID related risk Monitor O2 Midline and Venofer 02/01/20: Monitor closely O2 wean IRF protocol 02/01/30: Monitor O2 Aggressive therapy 02/03/20: Stood with assist and parallel bars today Improved status IV Venofer after PICC changed 02/04/20: Monitor O2 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 02/05/20: O2 Mobic Home meds 02/06/20: DC PICC since it simply did not function properly O2 02/07/20: Monitor closely O2 wean Sit to stand 02/08/20: Participation good Monitor pain 02/09/20: Sit to stand Continue therapy 02/10/20: Labs reviewed Monitor illness closely 02/11/20: Monitor closely Pain control right knee 02/12/20: Monitor right knee pain O2 Increase activity 02/13/20: Imodium prn Sit to stand Right knee pain 02/14/20: Monitor closely Monitor pain 02/15/20: Family education with sit to stand to see if home is an option 02/17/20: Monitor ambulation Rash treatment 02/18/20: Continue treatment O2 wean 02/19/20: Monitor O2 Pain management 02/20/20: Check labs in am Monitor BP 02/21/20: Labs reviewed Improved status Hemoglobin normal now 02/22/20/: Monitor O2 Increase ambulation (1) Myopathy (2) COVID-19 (3) GERD (gastroesophageal reflux disease) (4) Hypoxia (5) HX: breast cancer (6) Anxiety (7) Depression JARRELL HURD DO Feb 22, 2020 08:56
--- NOTE | 2020-02-22 08:58 | Physical Therapy Daily Note ---
PT Daily Note-Current Subjective Patient in shower room pre tx, agrees to PT, has pain in right knee with bearing weight. Will be co-treating with OT due to poor patient mobility, strength, endurance, decreasing O2 with activity, coordinate UE and LE during activity, safety and decrease risk of falls. Appearance Patient in recliner post tx with nurse call, phone, tray, all needs met. Mental Status Patient Orientation: Person, Place, Situation Attachments: Oxygen Transfers SCALE: Activities may be completed with or without assistive devices. 0-Rdaqroitzs-xbcukga completes the activity by him/herself with no assistance from a helper. 5-Set-up or Clean-up Assistance-helper sets up or cleans up; patient completes activity. [place] assists only prior to or following the activity. 4-Supervision or Touching Assistance-helper provides verbal cues and/or touching/steadying and/or contact guard assistance as patient completes activity. Assistance may be provided throughout the activity or intermittently. 3-Partial/Moderate Assistance-helper does LESS THAN HALF the effort. [place] lifts, holds or supports trunk or limbs, but provides less than half the effort. 2-Substantial/Maximal Assistance-helper does MORE THAN HALF the effort. [place] lifts or holds trunk or limbs and provides more than half the effort. 6-Ucwzrpwxj-zsckdh does ALL the effort. Patient does none of the effort to complete the activity. Or, the assistance of 2 or more helpers is required for the patient to complete the activity. If activity was not attempted, code reason: 7-Patient Refused. 9-Not Applicable-not attempted and the patient did not perform the activity before the current illness, exacerbation or injury. 10-Not Attempted due to Environmental Limitations-(lack of equipment, weather restraints, etc.). 88-Not Attempted due to Medical Conditions or Safety Concerns. Sit to Stand (QC): 3 Chair/Sif-ah-Dpawh Xfer(QC): 3 Toilet Transfer (QC): 3 Patient in shower at beginning of tx, needs assist standing for dressing. After ambulation patient needs to use the restroom to have a BM, min assist for transfers and standing but max assist to wipe and pull up/down pants. Weight Bearing Full Weight Bearing Full Weight Bearing Gait Training Distance: 5'x2, 10' Walk 10 feet (QC): 4 Gait Assistive Device: FWW Min assist to stand from WC, very unsteady ambulation but still just CGA, much right knee pain Wheelchair Training Does the Pt Use a Wheelchair?: Yes Wheel 50 ft with 2 turns (QC): 4 Wheel 150 ft (QC): 4 Type of Wheelchair: Manual Treatments PT performed transfers, ambulation, WC mobility, standing and safety during dressing, OT performed dressing, toileting, assist with UE positioning and safety. Assessment Current Status: Fair Progress still making slow progress with LE strength but right knee pain is a big obstacle. PT Short Term Goals Short Term Goals Time Frame: Feb 04, 2020 Roll Left & Right: 4 Sit to lyin Lying to sitting on side of be: 3 Sit to stand: 3 Chair/xnp-ao-ibsti transfer: 3 Walk 10 feet: 3 PT Automobile Rental Representative Goals Automobile Rental Representative Goals PT Jail Goals Time Frame: Feb 18, 2020 Roll Left & Right (QC): 6 Sit to Lying (QC): 4 Lying-Sitting on Side/Bed(QC): 4 Sit to Stand (QC): 3 ([place]helby) Chair/Mrz-ri-Hudbm Xfer(QC): 3 ([place]hel[place]) Toilet Transfer (QC): 3 (Shelby) Car Transfer (QC): 3 ([place]hel[place]) Does the Patient Walk: No and Walking Goal IS indicated Walk 10 feet (QC): 3 Walk 50ft with 2 Turns (QC): 3 Walk 150 ft (QC): 88 Walking 10ft on Uneven Surface: 88 1 Step (curb) (QC): 88 4 Steps (QC): 88 12 Steps (QC): 88 Picking up an Object (QC): 88 Wheel 50 feet with 2 turns (QC: 6 Wheel 150 feet: 6 PT Plan Problem List Problem List: Activity Tolerance, Functional Strength, Safety, Balance, Gait, Transfer, Bed Mobility, ROM Treatment/Plan Treatment Plan: Continue Plan of Care Treatment Plan: Bed Mobility, Education, Functional Activity Renny, Functional Strength, Group Therapy, Gait, Safety, Therapeutic Exercise, Transfers Treatment Duration: Feb 18, 2020 Frequency: At least 5 of 7 days/Wk (IRF) Estimated Hrs Per Day: 1.5 hours per day Patient and/or Family Agrees t: Yes Safety Risks/Education Patient Education: Gait Training, Transfer Techniques, Correct Positioning, W/C Management, Safety Issues Teaching Recipient: Patient Teaching Methods: Demonstration, Discussion Response to Teaching: Reinforcement Needed Time/GCodes Time In: 0800 Time Out: 0900 Total Billed Treatment Time: 60 Total Billed Treatment 1 visit FA 60' co-treated for 60' MAYTE BENAVIDEZ PT Feb 22, 2020 08:58
--- NOTE | 2020-02-22 08:59 | Occupational Ther Daily Note ---
OT Current Status-Daily Note Subjective Pt alert, sitting in recliner. Pt agrees to therapy. No c/o pain at this time. C/o during ambulation with PT about R knee, did not rate. Reported to nrsg. Mental Status/Objective Patient Orientation: Person, Place, Time, Situation ADL-Treatment OT/PT cotreat([id number]), skills of 2 clinicians required for skilled instruction and care due to fall risk, decreased mobility and increased weakness. PT focusing on transfers, mobility and B LE strengthening while OT focusing on ADLs and B UE placement during mobility and transfers. Pt agrees to shower. Using rolling shower chair with cutout, pt transported to large shower room. Using elevated surface to prop feet higher, pt able to complete all bathing sitting on chair. Pt then is able to don/doff upper body clothing by self after set up. Pt doffs/dons shoes by self, assist needed to don/doff HANNAH hose. Pt able to thread clothing over feet, at times requires vice president of communications to don underwear. Pt pulled to stand using grabbar and assist from PT to switch out shower chair with w/c and assist to hike pants over hips. Therapy Code Descriptions/Definitions Functional [place] Measure: 0=Not Assessed/NA 4=Minimal Assistance 1=Total Assistance 5=Supervision or Setup 2=Maximal Assistance 6=Modified [place] 3=Moderate Assistance 7=Complete IndependenceSCALE: Activities may be completed with or without assistive devices. 3-Gfjuhojppw-mfdkpsj completes the activity by him/herself with no assistance from a helper. 5-Set-up or Clean-up Assistance-helper sets up or cleans up; patient completes activity. [place] assists only prior to or following the activity. 4-Supervision or Touching Assistance-helper provides verbal cues and/or touching/steadying and/or contact guard assistance as patient completes activity. Assistance may be provided throughout the activity or intermittently. 3-Partial/Moderate Assistance-helper does LESS THAN HALF the effort. [place] lifts, holds or supports trunk or limbs, but provides less than half the effort. 2-Substantial/Maximal Assistance-helper does MORE THAN HALF the effort. [place] lifts or holds trunk or limbs and provides more than half the effort. 7-Jkmzrwwiw-myrzen does ALL the effort. Patient does none of the effort to complete the activity. Or, the assistance of 2 or more helpers is required for the patient to complete the activity. If activity was not attempted, code reason: 7-Patient Refused. 9-Not Applicable-not attempted and the patient did not perform the activity before the current illness, exacerbation or injury. 10-Not Attempted due to Environmental Limitations-(lack of equipment, weather restraints, etc.). 88-Not Attempted due to Medical Conditions or Safety Concerns. Shower/Bathe Self (QC): 5 Upper Body Dressing (QC): 5 Lower Body Dressing (QC): 1 On/Off Footwear: 3 Toileting Hygiene (QC): 1 (Pt transferred to regular toilet with PT, assist by MUNOZ to complete clothing manipulation and hygiene.) Toilet Transfer (QC): 1 (Assist by PT to stabilize during SPT and MUNOZ to guide buttocks to toilet.) Other Treatment Pt was able to ambulated 3x's with PT assisting with ambulation and MUNOZ assisting with w/c for safety. See PT notes for ambulation progress. Pt stated that she felt a pop in R knee, reported to nrsg. After session, pt sitting in recliner with call light/phone in reach. All needs met in room. 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 2=Patient will verbalize/demonstrate understanding of assistive devices/modifications for ADL. 3=Patient will improve strength/tolerance for activity to enable patient to perform ADL's. OT Education/Plan Problem List/Assessment Assessment: Decreased Activ Tolerance, Decreased UE Strength, Impaired Cognition (memory), Impaired Coordination, Impaired Funct Balance, Impaired Self-Care Skills Discharge Recommendations Plan/Recommendations: Continue POC Treatment Plan/Plan of Care Patient would benefit from OT for education, treatment and training to promote independence in ADL's, mobility, safety and/or upper extremity function for ADL's. Plan of Care: ADL Retraining, Functional Mobility, Group Exercise/Act as Ind, UE Funct Exercise/Act Treatment Duration: Feb 18, 2020 Frequency: At least 5 of 7 days/Wk (IRF) Estimated Hrs Per Day: 1.5 hours per day Agreement: Yes Rehab Potential: Fair Time/GCodes Start Time: 07:30 Stop Time: 09:00 Total Time Billed (hr/min): 90 Billed Treatment Time 1 visit-ADL 3 (45 min) FA 3 (45 min) co-treat with PT [id number], individual [id number] DENI GRISSOM Feb 22, 2020 08:59
[2020-02-22] MEDS: PANTOPRAZOLE 40 MG (PROTONIX) TAB PO SCH ×2 (09:03→21:16)
[2020-02-22] MEDS: LACTOBACILLUS ACIDOPHILUS (PROBIOTIC) CAPSULE PO SCH ×2 (09:03→21:17)
[2020-02-22] MEDS: ALPRAZolam 0.25 MG (XANAX) TAB PO SCH ×2 (09:04→21:15)
[2020-02-22] MEDS: MELOXICAM 7.5 MG (MOBIC) TABLET PO SCH (09:04)
[2020-02-22] MEDS: NIFEdipine ER 30 MG (PROCARDIA XL) TAB PO SCH (09:04)
[2020-02-22] MEDS: VITAMIN D3 125 MCG (5,000 UNITS) CAPSULE PO SCH (09:04)
[2020-02-22] MEDS: CYANOCOBALAMIN 1,000 MCG (VITAMIN B-12) TABLET PO SCH (09:05)
[2020-02-22] MEDS: amLODIPine 5 MG (NORVASC) TAB PO SCH (09:05)
[2020-02-22] MEDS: GABAPENTIN 300 MG (NEURONTIN) CAP PO SCH ×3 (09:05→21:15)
[2020-02-22] MEDS: METHIMAZOLE 5 MG PO SCH (09:05)
[2020-02-22] MEDS: ASCORBIC ACID (VIT C) 500 MG TABLET PO SCH (09:05)
[2020-02-22] MEDS: VALSARTAN 160 MG (DIOVAN) TABLET PO SCH (09:05)
[2020-02-22] MEDS: SERTRALINE 100 MG (ZOLOFT) TAB PO SCH (09:06)
[2020-02-22] MEDS: SILDENAFIL 20 MG (REVATIO) TAB NON-FORMULARY PO SCH ×2 (09:06→21:14)
[2020-02-22] MEDS: ACETAMINOPHEN 650 MG PO SCH ×3 (09:13→21:13)
[2020-02-22] MEDS: ENOXAPARIN 40 MG/0.4 ML (LOVENOX) SYR SC SCH (09:14)
[2020-02-22] MEDS: DICLOFENAC 1% GEL 100 GM (VOLTAREN) TUBE TOP SCH ×4 (09:14→21:14)
[2020-02-22] MEDS: LIDOCAINE 4% (SALONPAS) PATCH TP SCH ×2 (09:15→21:13)
[2020-02-22] MEDS: MICONAZOLE 2% POWDER (DESENEX AF) 90 GM TOP SCH ×2 (09:15→21:17)
[2020-02-22] MEDS: TRIAMCINOLONE 0.1% CR (KENALOG) 80 GM TUBE TP PRN (09:15)
--- NOTE | 2020-02-22 13:16 | Physical Therapy Daily Note ---
PT Daily Note-Current Subjective Patient c/o 10/10 LBP and right thigh pain. RN notified for pain medication. Patient agrees to up in recliner for lunch. Pain Numeric Pain Scale: 10-Worst Possible Pain Location: Right Location Body Site: Thigh Pain Description: Ache, Stabbing Mental Status Attachments: Oxygen Transfers SCALE: Activities may be completed with or without assistive devices. 1-Scywwkbqek-aspdewj completes the activity by him/herself with no assistance from a helper. 5-Set-up or Clean-up Assistance-helper sets up or cleans up; patient completes activity. [place] assists only prior to or following the activity. 4-Supervision or Touching Assistance-helper provides verbal cues and/or touching/steadying and/or contact guard assistance as patient completes activity. Assistance may be provided throughout the activity or intermittently. 3-Partial/Moderate Assistance-helper does LESS THAN HALF the effort. [place] lifts, holds or supports trunk or limbs, but provides less than half the effort. 2-Substantial/Maximal Assistance-helper does MORE THAN HALF the effort. [place] lifts or holds trunk or limbs and provides more than half the effort. 0-Qrgiuoxey-ycppun does ALL the effort. Patient does none of the effort to complete the activity. Or, the assistance of 2 or more helpers is required for the patient to complete the activity. If activity was not attempted, code reason: 7-Patient Refused. 9-Not Applicable-not attempted and the patient did not perform the activity before the current illness, exacerbation or injury. 10-Not Attempted due to Environmental Limitations-(lack of equipment, weather restraints, etc.). 88-Not Attempted due to Medical Conditions or Safety Concerns. Lying to Sitting/Side of Bed(Q: 4 Sit to Stand (QC): 2 Chair/Zcu-ts-Rbpkm Xfer(QC): 2 SPT bed to recliner mod to max assist (patient refused to attempt to stand with FWW) Weight Bearing Full Weight Bearing Full Weight Bearing Assessment Patient tolerated treatment and is able to perform bed mobility and repositioning in recliner by herself. PT to increase activity as tolerated by patient. PT Short Term Goals Short Term Goals Time Frame: Feb 04, 2020 Roll Left & Right: 4 Sit to lyin Lying to sitting on side of be: 3 Sit to stand: 3 Chair/aqb-fv-hlwxa transfer: 3 Walk 10 feet: 3 PT Manager [employer] Communications Goals Manager [employer] Goals PT Manager [employer] Goals Time Frame: Feb 18, 2020 Roll Left & Right (QC): 6 Sit to Lying (QC): 4 Lying-Sitting on Side/Bed(QC): 4 Sit to Stand (QC): 3 ([place]helby) Chair/Jxc-cv-Jrruu Xfer(QC): 3 ([place]helby) Toilet Transfer (QC): 3 (Shelby) Car Transfer (QC): 3 ([place]helby) Does the Patient Walk: No and Walking Goal IS indicated Walk 10 feet (QC): 3 Walk 50ft with 2 Turns (QC): 3 Walk 150 ft (QC): 88 Walking 10ft on Uneven Surface: 88 1 Step (curb) (QC): 88 4 Steps (QC): 88 12 Steps (QC): 88 Picking up an Object (QC): 88 Wheel 50 feet with 2 turns (QC: 6 Wheel 150 feet: 6 PT Plan Treatment/Plan Treatment Plan: Continue Plan of Care Treatment Plan: Bed Mobility, Education, Functional Activity Renny, Functional Strength, Group Therapy, Gait, Safety, Therapeutic Exercise, Transfers Treatment Duration: Feb 18, 2020 Frequency: At least 5 of 7 days/Wk (IRF) Estimated Hrs Per Day: 1.5 hours per day Patient and/or Family Agrees t: Yes Time/GCodes Time In: 1145 Time Out: 1200 Total Billed Treatment Time: 15 Total Billed Treatment 1 visit FA 15 min CHIARA LOPEZ PT Feb 22, 2020 13:16
--- NOTE | 2020-02-22 13:43 | Speech Therapy Daily Note ---
Speech Daily Progress Note Subjective Date Seen by Provider: Feb 22, 2020 Time Seen by Provider: 00:30 Patient was resting following her PT and OT session. Patient states she walked with her walker for the first time today. Objective Patient recalled steps to be taken for safe transfers and wheelchair mobility at 95% without cues today. Assessment Assessment Current Status: Good Progress Speech Short Term Goals Short Term Goals Short Term Goals 1) Patient will follow/recall multi step directions for wheelchair mobility without cues at 90% or greater. 2) Patient will recall sequencing for daily activities without cues at 90% or greater. Speech Penitentiary Goals Penitentiary Goals Patient will demonstrate safety awareness with all daily activities and processes. Speech-Plan Patient/Family Goals Patient/Family Goals: Patient plans on returning to her home where she lives with her upon discharge. Treatment Plan Speech Therapy Treatment Plan: Continue Plan of Care Treatment Duration: Jan 31, 2020 Frequency: 4 times per week (Patient will receive ST 4-5x per week) Estimated Hrs Per Day: .5 hour per day Rehab Potential: Fair Barriers to Learning: Patient's decreased cognitive skills Pt/Family Agrees to Plan: Yes Safety Risks/Education Teaching Recipient: Patient Teaching Methods: Demonstration, Discussion Response to Teaching: Verbalize Understanding, Return Demonstration Education Topics Provided: Continued safety within her room Time Speech Therapy Time In: 10:00 Speech Therapy Time Out: 10:30 Total Billed Time: 30 Billed Treatment Time 1MILLIE [address] ST Feb 22, 2020 13:43
--- NOTE | 2020-02-22 16:09 | NUR ---
CM/SS CONCURRENT DOCUMENTATION Answered patient's questions to her satisfaction regarding potential DME needs as it relates to Medicare benefits/coverage. Patient pleased with her progress to begin ambulating short distances with FWW. She does have a high level of pain in her right knee which is prohibitive to length of therapy session and walking. Patient reports the home ramp was installed today by Melissa Romero in her area. Team review tomorrow regarding length of stay.
--- NOTE | 2020-02-22 16:36 | NUR ---
Ambulated to BSC with assist x2, not sit to stand. 02 still desats with activity.
[2020-02-22 16:38] VITALS: BP 146/69
[2020-02-22] MEDS: SERTRALINE 50 MG (ZOLOFT) TABLET PO SCH (21:14)
[2020-02-22] MEDS: MELATONIN 3 MG TABLET PO PRN (21:16)
[2020-02-22] MEDS: PRAMIPEXOLE 0.125 MG (MIRAPEX) TABLET PO SCH (21:16)
[2020-02-23 06:48] VITALS: BP 134/67
--- NOTE | 2020-02-23 08:05 | Occupational Ther Daily Note ---
OT Current Status-Daily Note Subjective Pt alert, sitting in recliner. Pt agrees to therapy. C/o L knee pain, did not rate. Mental Status/Objective Patient Orientation: Person, Place, Time, Situation Attachments: Oxygen (1L) ADL-Treatment After set up, pt able to reach all areas in sitting to complete bathing using long handle sponge for lower legs/feet, leans side to side to reach buttocks. Pt sits at sink to complete oral care independently. SPT using FWW to transfer with min A BSC/toilet. Assist to manipulate clothing, sitting to cleanse self. Set up for upper body dressing. Threads clothing over feet by self, stands with FWW and assist to hike pants over hips. Pt dons/doffs shoes by slipping on, assist to don/doff HANNAH hose. Independent with eating. Therapy Code Descriptions/Definitions Functional [place] Measure: 0=Not Assessed/NA 4=Minimal Assistance 1=Total Assistance 5=Supervision or Setup 2=Maximal Assistance 6=Modified [place] 3=Moderate Assistance 7=Complete IndependenceSCALE: Activities may be completed with or without assistive devices. 3-Fmjmuldflg-woiodsf completes the activity by him/herself with no assistance from a helper. 5-Set-up or Clean-up Assistance-helper sets up or cleans up; patient completes activity. [place] assists only prior to or following the activity. 4-Supervision or Touching Assistance-helper provides verbal cues and/or touching/steadying and/or contact guard assistance as patient completes activity. Assistance may be provided throughout the activity or intermittently. 3-Partial/Moderate Assistance-helper does LESS THAN HALF the effort. [place] lifts, holds or supports trunk or limbs, but provides less than half the effort. 2-Substantial/Maximal Assistance-helper does MORE THAN HALF the effort. [place] lifts or holds trunk or limbs and provides more than half the effort. 6-Jbydvsfjv-uvujhi does ALL the effort. Patient does none of the effort to complete the activity. Or, the assistance of 2 or more helpers is required for the patient to complete the activity. If activity was not attempted, code reason: 7-Patient Refused. 9-Not Applicable-not attempted and the patient did not perform the activity before the current illness, exacerbation or injury. 10-Not Attempted due to Environmental Limitations-(lack of equipment, weather restraints, etc.). 88-Not Attempted due to Medical Conditions or Safety Concerns. Eating (QC): 6 Oral Hygiene (QC): 6 Shower/Bathe Self (QC): 5 Upper Body Dressing (QC): 5 Lower Body Dressing (QC): 3 On/Off Footwear: 3 Toileting Hygiene (QC): 3 Toilet Transfer (QC): 3 Other Treatment Co-treat with PT ([id number]), skills of 2 clinicians required for skilled care and instruction due to increased L knee pain, risk of falls and decreased activity tolerance. PT focusing on ambulation, transfers and mobility while OT focusing on ADLs and hand placement during mobility/transfers. Pt did not rate pain, but has c/o pain throughout treatment and any transfers/ambulation. See PT notes for ambulation. Pt left in care of PT. All needs met. OT Short Term Goals Short Term Goals Time Frame: Feb 09, 2020 Toileting hygiene: 3 Lower body dressin Putting on/taking off footwear: 3 OT Clinical Biochemist Goals Clinical Biochemist Goals Time Frame: Mar 10, 2020 Eating (QC): 6 Oral Hygiene (QC): 6 Toileting Hygiene (QC): 6 Shower/Bathe Self (QC): 6 Upper Body Dressing (QC): 6 Lower Body Dressing (QC): 6 On/Off Footwear (QC): 6 Additional Goals: 1-Demonstrate ADL Tasks, 2-Verbalize Understanding, 3- ImproveStrength/Renny 1=Demonstrate adherence to instructed precautions during ADL tasks. 2=Patient will verbalize/demonstrate understanding of assistive devices/modifications for ADL. 3=Patient will improve strength/tolerance for activity to enable patient to perform ADL's. OT Education/Plan Problem List/Assessment Assessment: Decreased Activ Tolerance, Decreased UE Strength, Impaired Funct Balance, Impaired Self-Care Skills Discharge Recommendations Plan/Recommendations: Continue POC Treatment Plan/Plan of Care Patient would benefit from OT for education, treatment and training to promote independence in ADL's, mobility, safety and/or upper extremity function for ADL's. Plan of Care: ADL Retraining, Functional Mobility, Group Exercise/Act as Ind, UE Funct Exercise/Act Treatment Duration: Feb 18, 2020 Frequency: At least 5 of 7 days/Wk (IRF) Estimated Hrs Per Day: 1.5 hours per day Agreement: Yes Rehab Potential: Fair Time/GCodes Start Time: 07:15 Stop Time: 08:45 Total Time Billed (hr/min): 90 Billed Treatment Time 1 visit-ADL 3 (45 min) FA 3 (45 min) co-treat with PT [id number], individual [id number] DENI GRISSOM Feb 23, 2020 08:05
--- NOTE | 2020-02-23 08:49 | PM&R Progress Note ---
Subjective HPI/CC On Admission Date Seen by Provider: Feb 23, 2020 Time Seen by Provider: 09:00 Subjective/Events-last exam 02/23/20: Spoke to Dr. Dent and he performed injection of steroids on the right knee Knee had popped an caused a lot more pain Bowels moved yesterday Not really using the sit to stand anymore 02/22/20: Progressing very well Using still tyq-ca-nuliv Weaning oxygen but she does desat during activity Team meeting tomorrow regarding disposition 02/21/20: Pt doing pretty well Bowels moved yesterday Oxygen remains at 1 liters Overall having some significant issues and continues to work with the sit to stand to try to be able to ambulate and return to independent living with her and her son helping out Will try to do everything we can to make that happen for her 02/20/20: Rash better Working with the site to stand well NHP could still be required until she is able to walk and do more for herself at home Her is disabled himself 02/19/20: Participation with therapy going well No pain reported except right knee Likely will need NHP 02/18/20: Rash improved with cream No new pain reported Right knee pain limits her activity May need NH placement 02/17/20: Monitor ambulation ability Sit to stand Rash on back 02/16/20: Family training today with and son Desats quickly Very anxious at times Will need to evaluate the next step in her care after family education 02/15/20: Sit to stand is very helpful Family education tomorrow with to see if he can manage the sit to stand May not be an option to go home 02/14/20: Pain pill will be given at 6 am to help therapy Hgb good at 9.7 Overall looks pretty good Much improved 02/13/20: Stool softener will be changed to prn Imodium prn Today is 51st anniversary 02/12/20: Participating in therapy Sit to stand Monitor right knee pain 02/11/20: Sit to stand working well for her Weakness improved Xanax helps her Patch and Voltaren helps her right knee 02/10/20: Had an ill episode earlier today Labs and c diff no acute issues Now resolved Doing well currently 02/09/20: NO issues Uses sit to stand well Very weak 02/08/20: Using sit to stand and doing very well Bowels moved today A lot of pain issues Requires a lot of care 02/07/20: Room air maintained O2 sat but with the minimal exertion she goes down into the 80 percent Discontinue Colesturiel Overall feels like she is doing much better Able to use the sit to stand pretty well 02/06/20: Has multiple little complaints DC PICC since it simply did not function properly DC Venofer O2 on 1L/min 02/05/20: Tearful at times Right knee pain is terrible at times Mobic will be restarted along with other home meds that have now been reviewed 02/04/20: Using sit to stand very well Heels are red so managing that O2 on/off 02/03/20: Oxycodone and Xanax ordered APAP Skateboard Standing with assist Memory loss noted Less edema right knee BM 02/02: Pt doing pretty well Participating in therapy Very motivated to improve Maintained on O2 2 liters 02/01/20: Right knee pain continues but considering the risk for complications from steroid injection after Covid, she will be managing Overall doing pretty well on 2 L of Oxygen Will replace Picc line since it was placed in the arm where she has had her previous mastectomy 01/31/20: Dr. Dent graciously agreed to see her for right knee pain and will initiate an injection Hgb 9.1 so midline will be placed with iron infusions 2 L of oxygen maintained After rounds Dr Dent updated me on the fact that no injection initiated due to high risk following COVID 01/30/20: Right knee pain continues Will reach out to Dr Dent tomorrow Tapazole restarted Midline needed for iron infusions Severe right knee pain 11/26 today so adjusted her pain meds and xray noted severe OA Dr Scott usually gives her a right knee injections every 3 months and she is overdue I will try to have ortho give pain injection Friday Tapazole not on her list and she has Graves disease she states O2 at 80% so will maintain 2L/min O2 Checking iron level since hgb 9.1 Adding TSH FT4 to labs BM today loose Review of Systems General: Fatigue, Malaise Pulmonary: Dyspnea Musculoskeletal: leg pain Objective Exam Vital Signs Vital Signs Date Time Temp Pulse Resp B/P (MAP) Pulse Ox O2 Delivery O2 Flow Rate FiO2 02/23/20 20:15 92 Nasal Cannula 1.00 02/23/20 17:24 36.8 87 18 145/67 (93) Capillary Refill : Less Than 3 Seconds General Appearance: No Apparent Distress, WD/WN, Chronically ill HEENT: PERRL/EOMI, Normal ENT Inspection, Pharynx Normal Neck: Full Range of Motion, Normal Inspection, Non Tender, Supple, Carotid Bruit Respiratory: Chest Non Tender, Lungs Clear, No Accessory Muscle Use, No Respiratory Distress, Decreased Breath Sounds Cardiovascular: Regular Rate, Rhythm, No Edema, No Gallop, No JVD, No Murmur, Normal Peripheral Pulses Gastrointestinal: Normal Bowel Sounds, No Organomegaly, No Pulsatile Mass, Non Tender, Soft Back: Normal Inspection, No CVA Tenderness, No Vertebral Tenderness Extremity: Normal Capillary Refill, Normal Inspection, Normal Range of Motion, Non Tender, No Calf Tenderness, No Pedal Edema Neurologic/Psychiatric: Alert, Oriented x3, Normal Mood/Affect, homeopathic doctor II-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 FIM Transfers Therapy Code Descriptions/Definitions Functional [place] Measure: 0=Not Assessed/NA 4=Minimal Assistance 1=Total Assistance 5=Supervision or Setup 2=Maximal Assistance 6=Modified [place] 3=Moderate Assistance 7=Complete IndependenceSCALE: Activities may be completed with or without assistive devices. 2-Ckcdqyvdzk-uikyqti completes the activity by him/herself with no assistance from a helper. 5-Set-up or Clean-up Assistance-helper sets up or cleans up; patient completes activity. [place] assists only prior to or following the activity. 4-Supervision or Touching Assistance-helper provides verbal cues and/or touching/steadying and/or contact guard assistance as patient completes activity. Assistance may be provided throughout the activity or intermittently. 3-Partial/Moderate Assistance-helper does LESS THAN HALF the effort. [place] lifts, holds or supports trunk or limbs, but provides less than half the effort. 2-Substantial/Maximal Assistance-helper does MORE THAN HALF the effort. [place] lifts or holds trunk or limbs and provides more than half the effort. 4-Hyhjgvwvb-ouijle does ALL the effort. Patient does none of the effort to complete the activity. Or, the assistance of 2 or more helpers is required for the patient to complete the activity. If activity was not attempted, code reason: 7-Patient Refused. 9-Not Applicable-not attempted and the patient did not perform the activity before the current illness, exacerbation or injury. 10-Not Attempted due to Environmental Limitations-(lack of equipment, weather restraints, etc.). 88-Not Attempted due to Medical Conditions or Safety Concerns. Roll Left to Right (QC): 6 Sit to Lying (QC): 5 Sit to Stand (QC): 2 Chair/Dmx-ym-Ptduc Xfer(QC): 2 Car Transfer (QC): 1 Gait Training Does the Patient Walk?: Yes Distance: 5'x2, 10' Walk 10 feet (QC): 4 Walk 50 ft with 2 Turns(QC): 88 Walk 150 ft (QC): 88 Walking 10ft/uneven surface-QC: 88 Gait Persons Needed: 2 Gait Assistive Device: FWW Wheelchair Training Does the Pt Use a Wheelchair?: Yes Distance: 50'x2 Wheel 50 ft with 2 turns (QC): 4 Wheel 150 ft (QC): 4 Type of Wheelchair: Manual Stair Training 1 Step (curb) (QC): 88 4 Steps (QC): 88 12 Steps (QC): 88 Balance Picking up an Object (QC): 88 ADL-Treatment Eating (QC): 6 (Pt set own meal up and used regular utensils to eat.) Oral Hygiene (QC): 6 Bathing Location: L Arm, R Arm, L Upper Leg, R Upper Leg, L Lower Leg (including foot), R Lower Leg (including foot), Chest, Abdomen, Perineal Area Shower/Bathe Self (QC): 5 Upper Body Dressing (QC): 5 Lower Body Dressing (QC): 1 On/Off Footwear (QC): 3 Toileting Hygiene (QC): 1 (Pt transferred to regular toilet with PT, assist by MUNOZ to complete clothing manipulation and hygiene.) Toilet Transfer (QC): 1 (Assist by PT to stabilize during SPT and MUNOZ to guide buttocks to toilet.) Assessment/Plan Assessment and Plan Assess & Plan/Chief Complaint Assessment: Critical illness debility from COVID-19 dx 12/11/19 OA h/o breast cancer Allergic rhinitis HTN GERD Depression Lung nodules [facility] 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 since assisted stable Grave's disease Anxiety Severe right knee pain from OA chronic Plan: IRF protocol Wean O2 Pain meds BM regimen 01/29/20: Restart Tapazole 5mg daily Knee injection by ortho will be pursued tomorrow O2 01/30/20: Right knee injection will be requested from Dr Dent Pain meds Tapazole O2 01/31/20: Knee injection not performed due to COVID related risk Monitor O2 Midline and Venofer 02/01/20: Monitor closely O2 wean IRF protocol 02/01/30: Monitor O2 Aggressive therapy 02/03/20: Stood with assist and parallel bars today Improved status IV Venofer after PICC changed 02/04/20: Monitor O2 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 02/05/20: O2 Mobic Home meds 02/06/20: DC PICC since it simply did not function properly O2 02/07/20: Monitor closely O2 wean Sit to stand 02/08/20: Participation good Monitor pain 02/09/20: Sit to stand Continue therapy 02/10/20: Labs reviewed Monitor illness closely 02/11/20: Monitor closely Pain control right knee 02/12/20: Monitor right knee pain O2 Increase activity 02/13/20: Imodium prn Sit to stand Right knee pain 02/14/20: Monitor closely Monitor pain 02/15/20: Family education with sit to stand to see if home is an option 02/17/20: Monitor ambulation Rash treatment 02/18/20: Continue treatment O2 wean 02/19/20: Monitor O2 Pain management 02/20/20: Check labs in am Monitor BP 02/21/20: Labs reviewed Improved status Hemoglobin normal now 02/22/20/: Monitor O2 Increase ambulation 02/23/20: RIght knee injection, appreciate Dr Dent Monitor ambulation DC late next week (1) Myopathy (2) COVID-19 (3) GERD (gastroesophageal reflux disease) (4) Hypoxia (5) HX: breast cancer (6) Anxiety (7) Depression JARRELL HURD DO Feb 23, 2020 08:49
[2020-02-23 09:30] VITALS: BP 142/66
[2020-02-23] MEDS ORDERED: BETAMETHASONE ACE/NA PHOS 6 MG/ML (CELESTONE SOLUSPAN) IM ONE (09:45)
[2020-02-23] MEDS ORDERED: BUPIVACAINE 0.25% 30 ML (SENSORCAINE) VIAL INJ ONE (09:45)
[2020-02-23] MEDS: PANTOPRAZOLE 40 MG (PROTONIX) TAB PO SCH ×2 (09:52→21:36)
[2020-02-23] MEDS: METHIMAZOLE 5 MG PO SCH (09:52)
[2020-02-23] MEDS: LACTOBACILLUS ACIDOPHILUS (PROBIOTIC) CAPSULE PO SCH ×2 (09:52→21:35)
[2020-02-23] MEDS: VALSARTAN 160 MG (DIOVAN) TABLET PO SCH (09:52)
[2020-02-23] MEDS: SERTRALINE 100 MG (ZOLOFT) TAB PO SCH (09:53)
[2020-02-23] MEDS: ENOXAPARIN 40 MG/0.4 ML (LOVENOX) SYR SC SCH (09:53)
[2020-02-23] MEDS: CYANOCOBALAMIN 1,000 MCG (VITAMIN B-12) TABLET PO SCH (09:53)
[2020-02-23] MEDS: LIDOCAINE 4% (SALONPAS) PATCH TP SCH ×3 (09:53→21:35)
[2020-02-23] MEDS: ALPRAZolam 0.25 MG (XANAX) TAB PO SCH ×2 (09:53→21:36)
[2020-02-23] MEDS: amLODIPine 5 MG (NORVASC) TAB PO SCH (09:53)
[2020-02-23] MEDS: GABAPENTIN 300 MG (NEURONTIN) CAP PO SCH ×3 (09:53→21:36)
[2020-02-23] MEDS: MELOXICAM 7.5 MG (MOBIC) TABLET PO SCH (09:53)
[2020-02-23] MEDS: NIFEdipine ER 30 MG (PROCARDIA XL) TAB PO SCH (09:53)
[2020-02-23] MEDS: ASCORBIC ACID (VIT C) 500 MG TABLET PO SCH (09:53)
[2020-02-23] MEDS: VITAMIN D3 125 MCG (5,000 UNITS) CAPSULE PO SCH (09:53)
[2020-02-23] MEDS: MICONAZOLE 2% POWDER (DESENEX AF) 90 GM TOP SCH ×2 (09:54→21:37)
[2020-02-23] MEDS: DICLOFENAC 1% GEL 100 GM (VOLTAREN) TUBE TOP SCH ×4 (09:54→21:38)
[2020-02-23] MEDS: SILDENAFIL 20 MG (REVATIO) TAB NON-FORMULARY PO SCH ×2 (09:54→21:37)
[2020-02-23] MEDS: ACETAMINOPHEN 650 MG PO SCH ×3 (09:58→21:35)
[2020-02-23] MEDS ORDERED: methylPREDNISolone 80 MG/ML (DEPO MEDROL) VIAL IM NR (10:00)
--- NOTE | 2020-02-23 11:04 | Physical Therapy Daily Note ---
PT Daily Note-Current Subjective Pt sitting in BR upon arrival. OT in progress as PT arrives. Pt agrees to PT. Pain Location: Right Location Body Site: Knee Pain Description: Ache Comment: Reported but not rated Mental Status Patient Orientation: Person, Place, Situation Transfers SCALE: Activities may be completed with or without assistive devices. 1-Eafkbvndyt-aqypwng completes the activity by him/herself with no assistance from a helper. 5-Set-up or Clean-up Assistance-helper sets up or cleans up; patient completes activity. [place] assists only prior to or following the activity. 4-Supervision or Touching Assistance-helper provides verbal cues and/or to uching/steadying and/or contact guard assistance as patient completes activity. Assistance may be provided throughout the activity or intermittently. 3-Partial/Moderate Assistance-helper does LESS THAN HALF the effort. [place] lifts, holds or supports trunk or limbs, but provides less than half the effort. 2-Substantial/Maximal Assistance-helper does MORE THAN HALF the effort. [place] lifts or holds trunk or limbs and provides more than half the effort. 2-Xqyrjogoc-zohxky does ALL the effort. Patient does none of the effort to complete the activity. Or, the assistance of 2 or more helpers is required for the patient to complete the activity. If activity was not attempted, code reason: 7-Patient Refused. 9-Not Applicable-not attempted and the patient did not perform the activity before the current illness, exacerbation or injury. 10-Not Attempted due to Environmental Limitations-(lack of equipment, weather restraints, etc.). 88-Not Attempted due to Medical Conditions or Safety Concerns. Sit to Lying (QC): 4 Sit to Stand (QC): 4 Chair/Nmz-df-Ksgmt Xfer(QC): 4 Weight Bearing Full Weight Bearing Full Weight Bearing Gait Training Does the Patient Walk?: Yes Distance: 25' Walk 10 feet (QC): 4 Gait Assistive Device: FWW Pain in R knee limits distance of ambulation. Wheelchair Training Does the Pt Use a Wheelchair?: Yes Wheel 50 ft with 2 turns (QC): 5 Wheel 150 ft (QC): 5 Type of Wheelchair: Manual Exercises NuStep Minutes: 8 NuStep Workload: 4 Treatments Co-treat with PT ([id number]), skills of 2 clinicians required for skilled care and instruction due to increased L knee pain, risk of falls and decreased activity tolerance. PT focusing on ambulation, transfers and mobility while OT focusing on ADLs and hand placement during mobility/transfers. Pt did not rate pain, but has c/o pain throughout treatment and any transfers/ambulation. OT departs then Pt uses NuStep before returning to room to rest. All needs met, call light in hand. Assessment Current Status: Good Progress Pt fixated on knee pain so educated on ways to relieve or assist it. Pt still fatigues but improving with strength and activity tolerance. PT Short Term Goals Short Term Goals Time Frame: Feb 04, 2020 Roll Left & Right: 4 Sit to lyin Lying to sitting on side of be: 3 Sit to stand: 3 Chair/bfb-jh-jhcpl transfer: 3 Walk 10 feet: 3 PT Pocketed Spring Assembler Goals Mcfp Goals PT Pocketed Spring Assembler Goals Time Frame: Feb 18, 2020 Roll Left & Right (QC): 6 Sit to Lying (QC): 4 Lying-Sitting on Side/Bed(QC): 4 Sit to Stand (QC): 3 (Shelby) Chair/Uge-zs-Hguef Xfer(QC): 3 (Shelby) Toilet Transfer (QC): 3 (Shelby) Car Transfer (QC): 3 (Shelby) Does the Patient Walk: No and Walking Goal IS indicated Walk 10 feet (QC): 3 Walk 50ft with 2 Turns (QC): 3 Walk 150 ft (QC): 88 Walking 10ft on Uneven Surface: 88 1 Step (curb) (QC): 88 4 Steps (QC): 88 12 Steps (QC): 88 Picking up an Object (QC): 88 Wheel 50 feet with 2 turns (QC: 6 Wheel 150 feet: 6 PT Plan Problem List Problem List: Activity Tolerance, Functional Strength, Gait, Transfer Treatment/Plan Treatment Plan: Continue Plan of Care Treatment Plan: Bed Mobility, Education, Functional Activity Renny, Functional Strength, Group Therapy, Gait, Safety, Therapeutic Exercise, Transfers Treatment Duration: Feb 18, 2020 Frequency: At least 5 of 7 days/Wk (IRF) Estimated Hrs Per Day: 1.5 hours per day Patient and/or Family Agrees t: Yes Safety Risks/Education Patient Education: Gait Training, Transfer Techniques, Correct Positioning, Safety Issues Teaching Recipient: Patient Teaching Methods: Discussion Response to Teaching: Verbalize Understanding Time/GCodes Time In: 800 Time Out: 900 Total Billed Treatment Time: 60 Total Billed Treatment 1, FA x2 (25m), GT (15m) & EX (20m) Co-treat w/OT for 45m ([id number]) SIENNA POND WIRE TESTER Feb 23, 2020 11:04
--- NOTE | 2020-02-23 11:15 | Speech Therapy Daily Note ---
Speech Daily Progress Note Subjective Date Seen by Provider: Feb 23, 2020 Time Seen by Provider: 00:30 Patient was resting in her bed. She was on the telephone with her son and crying. She stated to me after the phone call Dr. Carr had told her she was going to get the knee injection from Dr. Dent and then would go home. The patient interpreted this to mean she would go home immediately following the injection. I explained to her she would be here for a bit afterward for further therapy and to see if there was relief. Objective Patient completed a series of memory tasks related to bathroom needs and safety for her return home at 85% with min to mod cuing. Assessment Assessment Current Status: Good Progress Treatment Plan Continue Plan of Care Speech Short Term Goals Short Term Goals Short Term Goals 1) Patient will follow/recall multi step directions for wheelchair mobility without cues at 90% or greater. 2) Patient will recall sequencing for daily activities without cues at 90% or greater. Speech Sterilization Specialist Goals Sterilization Specialist Goals Patient will demonstrate safety awareness with all daily activities and processes. Speech-Plan Patient/Family Goals Patient/Family Goals: Patient plans on returning home where she lives with her . Treatment Plan Speech Therapy Treatment Plan: Continue Plan of Care Treatment Duration: Jan 31, 2020 Frequency: 4 times per week (Patient will receive ST 4-5x per week) Estimated Hrs Per Day: .5 hour per day Rehab Potential: Fair Barriers to Learning: Patient's recent lengthy COVID illness and related debility Pt/Family Agrees to Plan: Yes Safety Risks/Education Teaching Recipient: Patient Teaching Methods: Demonstration, Discussion Response to Teaching: Verbalize Understanding, Return Demonstration Education Topics Provided: Safety within her room/bathroom, communication of wants/needs Time Speech Therapy Time In: 10:00 Speech Therapy Time Out: 10:30 Total Billed Time: 30 Billed Treatment Time 1, ROLANDO Groves Feb 23, 2020 11:15
--- NOTE | 2020-02-23 12:10 | Physical Therapy Daily Note ---
PT Daily Note-Current Subjective Pt. with Dr Dent present for steroid injection right knee. Pt. sitting at EOB and states "well that was no pain at all" Pt. agrees to bed mobility and LE exercises Pain Location: No Pain Reported Mental Status Patient Orientation: Normal For Age Transfers SCALE: Activities may be completed with or without assistive devices. 3-Oxxwuizian-tofptsw completes the activity by him/herself with no assistance from a helper. 5-Set-up or Clean-up Assistance-helper sets up or cleans up; patient completes activity. [place] assists only prior to or following the activity. 4-Supervision or Touching Assistance-helper provides verbal cues and/or touching/steadying and/or contact guard assistance as patient completes activity. Assistance may be provided throughout the activity or intermittently. 3-Partial/Moderate Assistance-helper does LESS THAN HALF the effort. [place] lifts, holds or supports trunk or limbs, but provides less than half the effort. 2-Substantial/Maximal Assistance-helper does MORE THAN HALF the effort. [place] lifts or holds trunk or limbs and provides more than half the effort. 8-Fgajhsahk-bztlql does ALL the effort. Patient does none of the effort to complete the activity. Or, the assistance of 2 or more helpers is required for the patient to complete the activity. If activity was not attempted, code reason: 7-Patient Refused. 9-Not Applicable-not attempted and the patient did not perform the activity before the current illness, exacerbation or injury. 10-Not Attempted due to Environmental Limitations-(lack of equipment, weather restraints, etc.). 88-Not Attempted due to Medical Conditions or Safety Concerns. sit to sup indep, pushed self up in flat be using hand rails to pull and bent legs to hooklying position with assist to stabilize their stability for pushing up in bed, rolling left and right also indep Weight Bearing Full Weight Bearing Full Weight Bearing Exercises Supine Ex: Bridging, Ankle pumps, Quad Set, Rolling, Glut sets, Heel Slides, Short Arc Quads, Scooting, Straight leg raise (assisted), Hip abd/add Supine Reps: 10 (x2) Assessment Current Status: Good Progress increasing strength noted PT Short Term Goals Short Term Goals Time Frame: Feb 04, 2020 Roll Left & Right: 4 Sit to lyin Lying to sitting on side of be: 3 Sit to stand: 3 Chair/zpi-pu-zjihy transfer: 3 Walk 10 feet: 3 PT Intermediate Goals Simonizer Goals PT Intermediate Goals Time Frame: Feb 18, 2020 Roll Left & Right (QC): 6 Sit to Lying (QC): 4 Lying-Sitting on Side/Bed(QC): 4 Sit to Stand (QC): 3 (Shelby) Chair/Uwx-fs-Ltohd Xfer(QC): 3 (Shelby) Toilet Transfer (QC): 3 (Shelby) Car Transfer (QC): 3 (Shelby) Does the Patient Walk: No and Walking Goal IS indicated Walk 10 feet (QC): 3 Walk 50ft with 2 Turns (QC): 3 Walk 150 ft (QC): 88 Walking 10ft on Uneven Surface: 88 1 Step (curb) (QC): 88 4 Steps (QC): 88 12 Steps (QC): 88 Picking up an Object (QC): 88 Wheel 50 feet with 2 turns (QC: 6 Wheel 150 feet: 6 PT Plan Treatment/Plan Treatment Plan: Continue Plan of Care Treatment Plan: Bed Mobility, Education, Functional Activity Renny, Functional Strength, Group Therapy, Gait, Safety, Therapeutic Exercise, Transfers Treatment Duration: Feb 18, 2020 Frequency: At least 5 of 7 days/Wk (IRF) Estimated Hrs Per Day: 1.5 hours per day Patient and/or Family Agrees t: Yes Safety Risks/Education Patient Education: Transfer Techniques, Correct Positioning, Disease Process, Safety Issues Teaching Recipient: Patient Teaching Methods: Demonstration, Discussion Response to Teaching: Verbalize Understanding, Return Demonstration, Reinforcement Needed Time/GCodes Time In: 1140 Time Out: 1200 Total Billed Treatment Time: 20 Total Billed Treatment 1,EX20m KENZIE MORE SAND SIFTER Feb 23, 2020 12:10
--- NOTE | 2020-02-23 12:10 | Progress Note - Ortho ---
Progress Note Subjective Date of Exam 02/23/20 Chief Complaint T need right knee pain and swelling HPI/Events since last exam Mrs. Vidal continues with her right knee pain and swelling that is limiting her rehabilitation. We talked about injecting the knee on 01/30. We did discuss injections pre-and post COVID infection and she was concerned and wanted to wait. She now think she wants to proceed with injection after discussing this with Dr. Carr. She states her knee still swells. Some days little bit worse other days better. Other and that her past history care regarding her knee is unchanged Review of Systems Reviewed and no additions or changes Allergies: Coded Allergies: Sulfa (Sulfonamide Antibiotics) (Verified Allergy, Unknown, 01/28/20) amoxicillin (Verified Allergy, Unknown, 01/28/20) clavulanic acid (Verified Allergy, Unknown, 01/28/20) codeine (Verified Allergy, Unknown, 01/28/20) diazepam (Verified Allergy, Unknown, 01/28/20) hydrocodone (Verified Allergy, Unknown, 01/28/20) iodine (Verified Allergy, Unknown, 01/28/20) sulfamethoxazole (Verified Allergy, Unknown, 01/28/20) trimethoprim (Verified Allergy, Unknown, 01/28/20) Uncoded Allergies: MSG (Adverse Reaction, Severe, Diarrhea, 01/28/20) abdominal cramping, severe diarrhea Home Meds Reported Medications Acetaminophen (Tylenol Arthritis) 650 Mg Tablet.er, 650 MG PO TID, TAB 02/02/20 Methimazole (Methimazole) 5 Mg Tablet, 5 MG PO DAILY, TAB 02/02/20 Ascorbic Acid (Vitamin C) 500 Mg Capsule, 500 MG PO DAILY, CAP 02/02/20 Colestipol HCl (Colestipol HCl) 1 Gm Tablet, 1 GM PO BID, TAB 02/02/20 Olmesartan Medoxomil (Olmesartan Medoxomil) 40 Mg Tablet, 40 MG PO DAILY, TAB 02/02/20 Esomeprazole Magnesium (Esomeprazole Magnesium) 40 Mg Capsule.dr, 40 MG PO DAILY, CAP 02/02/20 Estrogens Conjugated (Premarin) 30 Gm Cr, 1 APPLIC TP WEEK, APPLIC 02/02/20 Oxycodone HCl/Acetaminophen (Oxycodone-Acetaminophen 5-325) 1 Each Tablet, 1 EACH PO HS PRN for PAIN-MODERATE (5-7), TAB 02/02/20 Sertraline HCl (Sertraline HCl) 100 Mg Tablet, 100 MG PO DAILY, TAB 02/02/20 Meloxicam (Meloxicam) 15 Mg Tablet, 15 MG PO DAILY, TAB 02/02/20 Pramipexole Di-HCl (Pramipexole Dihydrochloride) 0.25 Mg Tablet, 0.25 MG PO HS, TAB 02/02/20 ALPRAZolam (ALPRAZolam) 0.25 Mg Tablet, 0.25 MG PO BID, TAB 02/02/20 Gabapentin (Neurontin) 600 Mg Tablet, 600 MG PO TID, TAB 02/02/20 Sennosides/Docusate Sodium (Senna S Tablet) 1 Each Tablet, 1 EACH PO DAILY PRN for CONSTIPATION-6TH LINE, TAB 01/28/20 Cholecalciferol (Vitamin D3) (Vitamin D3) 125 Mcg Tablet, 125 MCG PO DAILY, TAB 01/28/20 Nifedipine (Procardia Xl) 30 Mg Tab.er.24, 30 MG PO DAILY, TAB 01/28/20 Lidocaine (Lidocaine 5% Patch) 1 Each Adh..patch, 1 EACH TP Q12H MDD 2, PATCH APPLY TO RIGHT KNEE FOR UP TO 12 HOURS PER DAY 01/28/20 Lactobacillus Acidophilus/Pect (Acidophilus-Pectin Capsule) 1 Each Capsule, 2 EACH PO BID, CAP 01/28/20 Objective Exam Constitutional: [] HEENT: [] Neck: [] Cardiovascular: [] Respiratory: [] Gastrointestinal: [] Genitourinary: [] Skin: [] Back/Spine: [] Extremities: [] Effusion right knee which appears to be mostly a boggy type synovitis. She has joint line and patellofemoral pain but no instability. Most of her swelling is superior-lateral Neurologic: [] Psychiatric: [] Hematologic/lymphatic/immunologic: [] Vital Signs Vital Signs Date Time Temp Pulse Resp B/P (MAP) Pulse Ox O2 Delivery O2 Flow Rate FiO2 02/23/20 10:42 Nasal Cannula 1.00 02/23/20 09:30 92 142/66 (91) 94 Nasal Cannula 1.00 02/23/20 06:48 36.8 82 18 134/67 (89) 96 Nasal Cannula 1.00 02/22/20 20:20 Nasal Cannula 1.00 02/22/20 16:38 37.0 76 20 146/69 (94) 95 02/22/20 15:18 Nasal Cannula 1.00 I & O 02/23/20 07:00 Intake Total 1105 ml Balance 1105 ml Lab Results Microbiology 02/10/20 C. difficile GDH Antigen & Toxins - Final, Complete Assessment and Plan Assessment Continued pain and swelling right knee secondary to severe osteoarthritis, tricompartment Problem List Unchanged Plan Again I discussed the injection of the knee. I don't think her knee has to be aspirated as the cortisone should reduce swelling and inflammation. I explained to her that a lot of knees that are swollen are the result of boggy synovitis as well as fluid. Feels like a lot of her swelling is synovitis. We again discussed cortisone injections pre-and post COVID infection and she would like to proceed. She may now have no side effects from the injection. She may feel little run down or flulike symptoms. We just don't know for sure how cortisone injections affect patient's post COVID infection that cortisone does decrease our immune response for a short period time and patient seemed never had Coban. Procedurethe right knee was injected through the lateral's joint space with 80 mg of Depo-Medrol in 4 mL's of 0.25 percent Marcaine. Skin was prepped with Betadine and alcohol none cleansed with alcohol and Band-Aid was applied. She may noted initial improvement from the Marcaine which may last few hours then the Depo-Medrol starts working usually at about 12-24 hours and could take up to to 3 weeks to see the maximum benefit. Use ice on the injection site for increased pain or swelling. Activities as tolerated. Final Diagonsis Osteoarthritis right knee Level of the visit: Level 3 Clinical Quality Measures DVT/VTE Risk/Contraindication: Risk Factor Score Per Nursin RFS Level Per Nursing on Admit: 4+=Very High RHIANNA MANZO MD Feb 23, 2020 12:10
[2020-02-23 17:24] VITALS: BP 145/67
[2020-02-23] MEDS: PRAMIPEXOLE 0.125 MG (MIRAPEX) TABLET PO SCH (21:35)
[2020-02-23] MEDS: MELATONIN 3 MG TABLET PO PRN (21:36)
[2020-02-23] MEDS: SERTRALINE 50 MG (ZOLOFT) TABLET PO SCH (21:36)
[2020-02-23] MEDS: oxyCODONE/APAP 5/325MG (PERCOCET 5) TABLET PO PRN (21:37)
--- NOTE | 2020-02-24 05:17 | PM&R Progress Note ---
Subjective HPI/CC On Admission Date Seen by Provider: Feb 24, 2020 Time Seen by Provider: 10:30 Subjective/Events-last exam 02/24/20: Right knee injection has worked wonders BM yesterday Improved overall O2 maintained 02/23/20: Spoke to Dr. Dent and he performed injection of steroids on the right knee Knee had popped an caused a lot more pain Bowels moved yesterday Not really using the sit to stand anymore 02/22/20: Progressing very well Using still oxh-ez-xcbzl Weaning oxygen but she does desat during activity Team meeting tomorrow regarding disposition 02/21/20: Pt doing pretty well Bowels moved yesterday Oxygen remains at 1 liters Overall having some significant issues and continues to work with the sit to stand to try to be able to ambulate and return to independent living with her and her son helping out Will try to do everything we can to make that happen for her 02/20/20: Rash better Working with the site to stand well NHP could still be required until she is able to walk and do more for herself at home Her is disabled himself 02/19/20: Participation with therapy going well No pain reported except right knee Likely will need NHP 02/18/20: Rash improved with cream No new pain reported Right knee pain limits her activity May need NH placement 02/17/20: Monitor ambulation ability Sit to stand Rash on back 02/16/20: Family training today with and son Desats quickly Very anxious at times Will need to evaluate the next step in her care after family education 02/15/20: Sit to stand is very helpful Family education tomorrow with to see if he can manage the sit to stand May not be an option to go home 02/14/20: Pain pill will be given at 6 am to help therapy Hgb good at 9.7 Overall looks pretty good Much improved 02/13/20: Stool softener will be changed to prn Imodium prn Today is 50 anniversary 02/12/20: Participating in therapy Sit to stand Monitor right knee pain 02/11/20: Sit to stand working well for her Weakness improved Xanax helps her Patch and Voltaren helps her right knee 02/10/20: Had an ill episode earlier today Labs and c diff no acute issues Now resolved Doing well currently 02/09/20: NO issues Uses sit to stand well Very weak 02/08/20: Using sit to stand and doing very well Bowels moved today A lot of pain issues Requires a lot of care 02/07/20: Room air maintained O2 sat but with the minimal exertion she goes down into the 80 percent Discontinue Colestid Overall feels like she is doing much better Able to use the sit to stand pretty well 02/06/20: Has multiple little complaints DC PICC since it simply did not function properly DC Venofer O2 on 1L/min 02/05/20: Tearful at times Right knee pain is terrible at times Mobic will be restarted along with other home meds that have now been reviewed 02/04/20: Using sit to stand very well Heels are red so managing that O2 on/off 02/03/20: Oxycodone and Xanax ordered APAP Skateboard Standing with assist Memory loss noted Less edema right knee BM 02/02: Pt doing pretty well Participating in therapy Very motivated to improve Maintained on O2 2 liters 02/01/20: Right knee pain continues but considering the risk for complications from steroid injection after Covid, she will be managing Overall doing pretty well on 2 L of Oxygen Will replace Picc line since it was placed in the arm where she has had her previous mastectomy 01/31/20: Dr. Dent graciously agreed to see her for right knee pain and will initiate an injection Hgb 9.1 so midline will be placed with iron infusions 2 L of oxygen maintained After rounds Dr Dent updated me on the fact that no injection initiated due to high risk following COVID 01/30/20: Right knee pain continues Will reach out to Dr Dent tomorrow Tapazole restarted Midline needed for iron infusions Severe right knee pain 11/26 today so adjusted her pain meds and xray noted severe OA Dr Scott usually gives her a right knee injections every 3 months and she is overdue I will try to have ortho give pain injection Friday Tapazole not on her list and she has Graves disease she states O2 at 80% so will maintain 2L/min O2 Checking iron level since hgb 9.1 Adding TSH FT4 to labs BM today loose Review of Systems Musculoskeletal: leg pain Objective Exam Vital Signs Vital Signs Date Time Temp Pulse Resp B/P (MAP) Pulse Ox O2 Delivery O2 Flow Rate FiO2 02/24/20 16:10 37.2 81 16 135/63 (87) 95 02/24/20 09:00 Nasal Cannula 1.00 Capillary Refill : Less Than 3 Seconds General Appearance: No Apparent Distress, WD/WN, Chronically ill HEENT: PERRL/EOMI, Normal ENT Inspection, Pharynx Normal Neck: Full Range of Motion, Normal Inspection, Non Tender, Supple, Carotid Bruit Respiratory: Chest Non Tender, Lungs Clear, No Accessory Muscle Use, No Respiratory Distress, Decreased Breath Sounds Cardiovascular: Regular Rate, Rhythm, No Edema, No Gallop, No JVD, No Murmur, Normal Peripheral Pulses Gastrointestinal: Normal Bowel Sounds, No Organomegaly, No Pulsatile Mass, Non Tender, Soft Back: Normal Inspection, No CVA Tenderness, No Vertebral Tenderness Extremity: Normal Capillary Refill, Normal Inspection, Normal Range of Motion, Non Tender, No Calf Tenderness, No Pedal Edema Neurologic/Psychiatric: Alert, Oriented x3, Normal Mood/Affect, judge II-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 FIM Transfers Therapy Code Descriptions/Definitions Functional Graves Measure: 0=Not Assessed/NA 4=Minimal Assistance 1=Total Assistance 5=Supervision or Setup 2=Maximal Assistance 6=Modified Graves 3=Moderate Assistance 7=Complete IndependenceSCALE: Activities may be completed with or without assistive devices. 3-Djcvttnbhx-hhrhubr completes the activity by him/herself with no assistance from a helper. 5-Set-up or Clean-up Assistance-helper sets up or cleans up; patient completes activity. [place] assists only prior to or following the activity. 4-Supervision or Touching Assistance-helper provides verbal cues and/or touching/steadying and/or contact guard assistance as patient completes activity. Assistance may be provided throughout the activity or intermittently. 3-Partial/Moderate Assistance-helper does LESS THAN HALF the effort. [place] lifts, holds or supports trunk or limbs, but provides less than half the effort. 2-Substantial/Maximal Assistance-helper does MORE THAN HALF the effort. [place] lifts or holds trunk or limbs and provides more than half the effort. 1-Ygxjftsop-jbeclg does ALL the effort. Patient does none of the effort to complete the activity. Or, the assistance of 2 or more helpers is required for the patient to complete the activity. If activity was not attempted, code reason: 7-Patient Refused. 9-Not Applicable-not attempted and the patient did not perform the activity before the current illness, exacerbation or injury. 10-Not Attempted due to Environmental Limitations-(lack of equipment, weather restraints, etc.). 88-Not Attempted due to Medical Conditions or Safety Concerns. Roll Left to Right (QC): 6 Sit to Lying (QC): 4 Sit to Stand (QC): 4 Chair/Cqm-pk-Xir[place] Xfer(QC): 4 Car Transfer (QC): 1 Gait Training Does the Patient Walk?: Yes Distance: 25' Walk 10 feet (QC): 4 Walk 50 ft with 2 Turns(QC): 88 Walk 150 ft (QC): 88 Walking 10ft/uneven surface-QC: 88 Gait Persons Needed: 2 Gait Assistive Device: FWW Wheelchair Training Does the Pt Use a Wheelchair?: Yes Distance: 50'x2 Wheel 50 ft with 2 turns (QC): 5 Wheel 150 ft (QC): 5 Type of Wheelchair: Manual Stair Training 1 Step (curb) (QC): 88 4 Steps (QC): 88 12 Steps (QC): 88 Balance Picking up an Object (QC): 88 ADL-Treatment Eating (QC): 6 Oral Hygiene (QC): 6 Bathing Location: L Arm, R Arm, L Upper Leg, R Upper Leg, L Lower Leg (including foot), R Lower Leg (including foot), Chest, Abdomen, Perineal Area Shower/Bathe Self (QC): 5 Upper Body Dressing (QC): 5 Lower Body Dressing (QC): 3 On/Off Footwear (QC): 3 Toileting Hygiene (QC): 3 Toilet Transfer (QC): 3 Assessment/Plan Assessment and Plan Assess & Plan/Chief Complaint Assessment: Critical illness debility from COVID-19 dx 12/11/19 OA h/o breast cancer Allergic rhinitis HTN GERD Depression Lung nodules [facility] 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 Grave's disease Anxiety Severe right knee pain from OA chronic Plan: IRF protocol Wean O2 Pain meds BM regimen 01/29/20: Restart Tapazole 5mg daily Knee injection by ortho will be pursued tomorrow O2 01/30/20: Right knee injection will be requested from Dr Dent Pain meds Tapazole O2 01/31/20: Knee injection not performed due to COVID related risk Monitor O2 Midline and Venofer 02/01/20: Monitor closely O2 wean IRF protocol 02/01/30: Monitor O2 Aggressive therapy 02/03/20: Stood with assist and parallel bars today Improved status IV Venofer after PICC changed 02/04/20: Monitor O2 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 02/05/20: O2 Mobic Home meds 02/06/20: DC PICC since it simply did not function properly O2 02/07/20: Monitor closely O2 wean Sit to stand 02/08/20: Participation good Monitor pain 02/09/20: Sit to stand Continue therapy 02/10/20: Labs reviewed Monitor illness closely 02/11/20: Monitor closely Pain control right knee 02/12/20: Monitor right knee pain O2 Increase activity 02/13/20: Imodium prn Sit to stand Right knee pain 02/14/20: Monitor closely Monitor pain 02/15/20: Family education with sit to stand to see if home is an option 02/17/20: Monitor ambulation Rash treatment 02/18/20: Continue treatment O2 wean 02/19/20: Monitor O2 Pain management 02/20/20: Check labs in am Monitor BP 02/21/20: Labs reviewed Improved status Hemoglobin normal now 02/22/20/: Monitor O2 Increase ambulation 02/23/20: RIght knee injection, appreciate Dr Dent Monitor ambulation DC late next week 02/24/20: Improved knee pain will enable her to ambulate better Home late next week (1) Myopathy (2) COVID-19 (3) GERD (gastroesophageal reflux disease) (4) Hypoxia (5) HX: breast cancer (6) Anxiety (7) Depression JARRELL HURD DO Feb 24, 2020 05:17
[2020-02-24 06:00] VITALS: BP 164/70
--- NOTE | 2020-02-24 09:03 | Physical Therapy Daily Note ---
PT Daily Note-Current Subjective Pt. with OT upon entering. Agrees to PT OT co Rx. States right knee is at 4/10 pain but improved overall. Pain Numeric Pain Scale: 4 Location: Right Location Body Site: Knee Pain Description: Ache Mental Status Patient Orientation: Normal For Age Attachments: Oxygen (1L off and on attempting titration ), Other-See Comments (mask) Transfers SCALE: Activities may be completed with or without assistive devices. 4-Kdnjgwyptj-ytqysyv completes the activity by him/herself with no assistance from a helper. 5-Set-up or Clean-up Assistance-helper sets up or cleans up; patient completes activity. [place] assists only prior to or following the activity. 4-Supervision or Touching Assistance-helper provides verbal cues and/or touching/steadying and/or contact guard assistance as patient completes activity. Assistance may be provided throughout the activity or intermittently. 3-Partial/Moderate Assistance-helper does LESS THAN HALF the effort. [place] lifts, holds or supports trunk or limbs, but provides less than half the effort. 2-Substantial/Maximal Assistance-helper does MORE THAN HALF the effort. [place] lifts or holds trunk or limbs and provides more than half the effort. 8-Ijcttdxhy-rbrppg does ALL the effort. Patient does none of the effort to complete the activity. Or, the assistance of 2 or more helpers is required for the patient to complete the activity. If activity was not attempted, code reason: 7-Patient Refused. 9-Not Applicable-not attempted and the patient did not perform the activity before the current illness, exacerbation or injury. 10-Not Attempted due to Environmental Limitations-(lack of equipment, weather restraints, etc.). 88-Not Attempted due to Medical Conditions or Safety Concerns. Roll Left & Right (QC): 6 Sit to Lying (QC): 5 Lying to Sitting/Side of Bed(Q: 5 Sit to Stand (QC): 4 Chair/Kov-wa-Gesxv Xfer(QC): 4 Toilet Transfer (QC): 4 needs instruction at times for wt shift forward "nose over toes" and to brake w/c etc, with this pt. requires only SBA for sit to stand, slow in out bed with instruction as well for UE placement and technique Weight Bearing Full Weight Bearing Full Weight Bearing Gait Training Does the Patient Walk?: Yes Walk 10 feet (QC): 4 Gait Persons Needed: 1 Gait Assistive Device: FWW 18ft, 10ft, 5 ft CGA, small uneven steps, rest breaks secondary dyspnea, w/c to follow, fatigues, heavy wt bearing on FWW Wheelchair Training Does the Pt Use a Wheelchair?: Yes Wheel 50 ft with 2 turns (QC): 6 Type of Wheelchair: Manual Exercises Supine Ex: Bridging, Ankle pumps, Quad Set, Rolling, Heel Slides, Scooting, Straight leg raise (assisted right), Hip abd/add Supine Reps: 12 Seated Therapy Exercises: Sit to stand Seated Reps: 12 Treatments PT OT co Rx secondary to level of debility and coordination of UE and LE for safety and ADL tasks, Pt TRFd on off toilet , able to manage clothing up down going to toilet but fatiged and needed assist when going back to chair. did morning hygiene at sink . Assessment Current Status: Good Progress PT Short Term Goals Short Term Goals Time Frame: Feb 04, 2020 Roll Left & Right: 4 Sit to lyin Lying to sitting on side of be: 3 Sit to stand: 3 Chair/mai-st-orycx transfer: 3 Walk 10 feet: 3 PT Elementary Educator Goals Retirement Goals PT Retirement Goals Time Frame: Feb 18, 2020 Roll Left & Right (QC): 6 Sit to Lying (QC): 4 Lying-Sitting on Side/Bed(QC): 4 Sit to Stand (QC): 3 ([place]helby) Chair/Plh-gj-Caiey Xfer(QC): 3 (Shelby) Toilet Transfer (QC): 3 (Shelby) Car Transfer (QC): 3 (Shelby) Does the Patient Walk: No and Walking Goal IS indicated Walk 10 feet (QC): 3 Walk 50ft with 2 Turns (QC): 3 Walk 150 ft (QC): 88 Walking 10ft on Uneven Surface: 88 1 Step (curb) (QC): 88 4 Steps (QC): 88 12 Steps (QC): 88 Picking up an Object (QC): 88 Wheel 50 feet with 2 turns (QC: 6 Wheel 150 feet: 6 PT Plan Treatment/Plan Treatment Plan: Continue Plan of Care Treatment Plan: Bed Mobility, Education, Functional Activity Renny, Functional Strength, Group Therapy, Gait, Safety, Therapeutic Exercise, Transfers Treatment Duration: Feb 18, 2020 Frequency: At least 5 of 7 days/Wk (IRF) Estimated Hrs Per Day: 1.5 hours per day Patient and/or Family Agrees t: Yes Safety Risks/Education Patient Education: Gait Training, Transfer Techniques, Correct Positioning, W/C Management, Disease Process, Safety Issues Teaching Recipient: Patient Teaching Methods: Demonstration, Discussion Response to Teaching: Verbalize Understanding, Return Demonstration, Reinforcement Needed Time/GCodes Time In: 800 Time Out: 900 Total Billed Treatment Time: 60 Total Billed Treatment 1,FA30m,EX15m,GT15m (PT OT co Rx 60m) KENZIE MORE SUPERVISOR FRAME ASSEMBLY Feb 24, 2020 09:03
[2020-02-24] MEDS: CYANOCOBALAMIN 1,000 MCG (VITAMIN B-12) TABLET PO SCH (09:37)
[2020-02-24] MEDS: VALSARTAN 160 MG (DIOVAN) TABLET PO SCH (09:37)
[2020-02-24] MEDS: SILDENAFIL 20 MG (REVATIO) TAB NON-FORMULARY PO SCH ×2 (09:37→20:25)
[2020-02-24] MEDS: MELOXICAM 7.5 MG (MOBIC) TABLET PO SCH (09:38)
[2020-02-24] MEDS: VITAMIN D3 125 MCG (5,000 UNITS) CAPSULE PO SCH (09:38)
[2020-02-24] MEDS: GABAPENTIN 300 MG (NEURONTIN) CAP PO SCH ×3 (09:38→20:22)
[2020-02-24] MEDS: NIFEdipine ER 30 MG (PROCARDIA XL) TAB PO SCH (09:38)
[2020-02-24] MEDS: PANTOPRAZOLE 40 MG (PROTONIX) TAB PO SCH ×2 (09:38→20:22)
[2020-02-24] MEDS: LACTOBACILLUS ACIDOPHILUS (PROBIOTIC) CAPSULE PO SCH ×2 (09:38→20:22)
[2020-02-24] MEDS: amLODIPine 5 MG (NORVASC) TAB PO SCH (09:38)
[2020-02-24] MEDS: ALPRAZolam 0.25 MG (XANAX) TAB PO SCH ×2 (09:38→20:22)
[2020-02-24] MEDS: METHIMAZOLE 5 MG PO SCH (09:38)
[2020-02-24] MEDS: ASCORBIC ACID (VIT C) 500 MG TABLET PO SCH (09:38)
[2020-02-24] MEDS: SERTRALINE 100 MG (ZOLOFT) TAB PO SCH (09:38)
[2020-02-24] MEDS: ENOXAPARIN 40 MG/0.4 ML (LOVENOX) SYR SC SCH (09:39)
[2020-02-24] MEDS: LIDOCAINE 4% (SALONPAS) PATCH TP SCH ×2 (09:39→20:21)
[2020-02-24] MEDS: DICLOFENAC 1% GEL 100 GM (VOLTAREN) TUBE TOP SCH ×4 (09:39→20:26)
[2020-02-24] MEDS: MICONAZOLE 2% POWDER (DESENEX AF) 90 GM TOP SCH ×2 (09:39→20:26)
[2020-02-24] MEDS: ACETAMINOPHEN 650 MG PO SCH ×3 (09:40→20:23)
--- NOTE | 2020-02-24 11:20 | Occupational Ther Daily Note ---
OT Current Status-Daily Note Subjective Pt alert, sitting in recliner. Pt agrees to therapy. Pt initially c/o pain in R knee at 07/27 then by end of session 05/27. Mental Status/Objective Patient Orientation: Person, Place, Time, Situation Attachments: Oxygen (1L) ADL-Treatment Pt declines shower, agrees to sponge bath. After set up, pt able to complete all areas of bathing except buttocks in sitting. Using long handle sponge to cleanse feet. Pt stood with FWW with CGA to cleanse buttocks/rosibel area. After set up, pt able to don/doff upper body clothing. Pt able to thread lower body clothing over feet then stood up with CGA to hike pants with B hands and maintain own balance. Pt used sock aide to don HANNAH hose with set up and verbal instructions, assist to doff. Pt then transferred to [facility] and propelled into bathroom by self to complete oral care and grooming independently. At end of therapy, pt transfers to toilet from [facility] using grabbars with min A. Manipulated clothing in standing with CGA and completed hygiene sitting on toilet by self. After therapy, pt sitting in recliner with call light/phone in reach. All needs met in room. Therapy Code Descriptions/Definitions Functional [place] Measure: 0=Not Assessed/NA 4=Minimal Assistance 1=Total Assistance 5=Supervision or Setup 2=Maximal Assistance 6=Modified [place] 3=Moderate Assistance 7=Complete IndependenceSCALE: Activities may be completed with or without assistive devices. 3-Skewqqybey-veemiqi completes the activity by him/herself with no assistance from a helper. 5-Set-up or Clean-up Assistance-helper sets up or cleans up; patient completes activity. [place] assists only prior to or following the activity. 4-Supervision or Touching Assistance-helper provides verbal cues and/or touching/steadying and/or contact guard assistance as patient completes activity. Assistance may be provided throughout the activity or intermittently. 3-Partial/Moderate Assistance-helper does LESS THAN HALF the effort. [place] lifts, holds or supports trunk or limbs, but provides less than half the effort. 2-Substantial/Maximal Assistance-helper does MORE THAN HALF the effort. [place] lifts or holds trunk or limbs and provides more than half the effort. 1-Hxxiekpqx-qzlnjs does ALL the effort. Patient does none of the effort to complete the activity. Or, the assistance of 2 or more helpers is required for the patient to complete the activity. If activity was not attempted, code reason: 7-Patient Refused. 9-Not Applicable-not attempted and the patient did not perform the activity before the current illness, exacerbation or injury. 10-Not Attempted due to Environmental Limitations-(lack of equipment, weather restraints, etc.). 88-Not Attempted due to Medical Conditions or Safety Concerns. Oral Hygiene (QC): 6 Bathing Location: L Arm, R Arm, L Upper Leg, R Upper Leg, L Lower Leg (including foot), R Lower Leg (including foot), Chest, Abdomen, Buttocks, Perineal Area Shower/Bathe Self (QC): 4 Upper Body Dressing (QC): 5 Lower Body Dressing (QC): 4 On/Off Footwear: 3 Toileting Hygiene (QC): 4 Toilet Transfer (QC): 4 Other Treatment Co-treat with PT ([id number]), skills of 2 clinicians required for skilled care and instruction due to increased L knee pain, risk of falls and decreased activ ity tolerance. PT focusing on ambulation, transfers and mobility while OT focusing on ADLs and hand placement during mobility/transfers. Pt completed bed mobility on therapy mat with SBA. Pt is progressing with mobility, transfers and ambulation today. See PT notes for ambulation. OT Short Term Goals Short Term Goals Time Frame: Feb 09, 2020 Toileting hygiene: 3 Lower body dressin Putting on/taking off footwear: 3 OT Custodial Goals Parts Finisher Goals Time Frame: Mar 10, 2020 Eating (QC): 6 Oral Hygiene (QC): 6 Toileting Hygiene (QC): 6 Shower/Bathe Self (QC): 6 Upper Body Dressing (QC): 6 Lower Body Dressing (QC): 6 On/Off Footwear (QC): 6 Additional Goals: 1-Demonstrate ADL Tasks, 2-Verbalize Understanding, 3- ImproveStrength/Renny 1=Demonstrate adherence to instructed precautions during ADL tasks. 2=Patient will verbalize/demonstrate understanding of assistive devices/modifications for ADL. 3=Patient will improve strength/tolerance for activity to enable patient to perform ADL's. OT Education/Plan Problem List/Assessment Assessment: Decreased Activ Tolerance, Decreased UE Strength, Impaired Self- Care Skills Discharge Recommendations Plan/Recommendations: Continue POC Treatment Plan/Plan of Care Patient would benefit from OT for education, treatment and training to promote independence in ADL's, mobility, safety and/or upper extremity function for ADL's. Plan of Care: ADL Retraining, Functional Mobility, Group Exercise/Act as Ind, U E Funct Exercise/Act Treatment Duration: Feb 18, 2020 Frequency: At least 5 of 7 days/Wk (IRF) Estimated Hrs Per Day: 1.5 hours per day Agreement: Yes Rehab Potential: Fair Time/GCodes Start Time: 07:30 Stop Time: 09:00 Total Time Billed (hr/min): 90 Billed Treatment Time 1 visit-ADL 3 (45 min) FA 3 (45 min) co-treat with PT [id number], individual [id number] DENI GRISSOM Feb 24, 2020 11:20
--- NOTE | 2020-02-24 11:42 | NUR ---
CM/SS PATIENT CARE CONFERENCE Presented Summary to patient and left for her to review. Answered her questions to her satisfaction, signed, charted. Patient target discharge is Tuesday, March 03, 2020. Patient continues to exhibit and voice anxiety with each phase of progress. She consistently communicates concern about how she will perform at home, particularly related to the fact that her spouse can not physically support or help her. Her goal is to be able to ambulate at least short distances so that she can manage herself as much as possible for personal care and transfers. DME: Anticipate wheelchair, FWW, BSC (private pay), hip kit has been recommended (private pay). [facility]: Patient has Medicare so insurance regarding agencies should not be an issue; however, staffing might be. Patient will need RN PT OT. [facility] does not have OT. Addendum: 02/24/20 at 1200 by DIMITRY PELAYO DME: New home O2 likely.
--- NOTE | 2020-02-24 13:57 | Speech Therapy Daily Note ---
Speech Daily Progress Note Subjective Date Seen by Provider: Feb 24, 2020 Time Seen by Provider: 00:30 Patient was resting in her recliner. She was so proud she was able to walk today without pain in her right knee. She received an injection yesterday in her knee and it was greatly relieved of the pain. Objective Patient completed a series of safety awareness cards with 90% accuracy given min cuing to complete. Assessment Assessment Current Status: Good Progress Treatment Plan Continue Plan of Care Speech Short Term Goals Short Term Goals Short Term Goals 1) Patient will follow/recall multi step directions for wheelchair mobility without cues at 90% or greater. 2) Patient will recall sequencing for daily activities without cues at 90% or greater. Speech Access Tech Goals Access Tech Goals Patient will demonstrate safety awareness with all daily activities and processes. Speech-Plan Patient/Family Goals Patient/Family Goals: Patient is scheduled to discharge to her home on the . Treatment Plan Speech Therapy Treatment Plan: Continue Plan of Care Treatment Duration: Mar 03, 2020 Frequency: 4 times per week (Patient will receive ST 4-5x per week) Estimated Hrs Per Day: .5 hour per day Rehab Potential: Fair Barriers to Learning: Patient's recent COVID illness and her age Pt/Family Agrees to Plan: Yes Safety Risks/Education Teaching Recipient: Patient Teaching Methods: Demonstration, Discussion Response to Teaching: Verbalize Understanding, Return Demonstration Education Topics Provided: Continued safety within her room/bathroom, communication of wants/needs Time Speech Therapy Time In: 11:00 Speech Therapy Time Out: 11:30 Total Billed Time: 30 Billed Treatment Time 1, ROLANDO Groves Feb 24, 2020 13:57
[2020-02-24 16:10] VITALS: BP 135/63
[2020-02-24] MEDS: SERTRALINE 50 MG (ZOLOFT) TABLET PO SCH (20:22)
[2020-02-24] MEDS: PRAMIPEXOLE 0.125 MG (MIRAPEX) TABLET PO SCH (20:22)
[2020-02-24] MEDS: MELATONIN 3 MG TABLET PO PRN (20:32)
[2020-02-24] MEDS: CALCIUM CARBONATE 500 MG (TUMS) TAB.CHEW PO PRN (20:32)
[2020-02-25 06:09] VITALS: BP 151/70
[2020-02-25] MEDS: GABAPENTIN 300 MG (NEURONTIN) CAP PO SCH ×3 (08:51→20:17)
[2020-02-25] MEDS: amLODIPine 5 MG (NORVASC) TAB PO SCH (08:51)
[2020-02-25] MEDS: ASCORBIC ACID (VIT C) 500 MG TABLET PO SCH (08:51)
[2020-02-25] MEDS: MELOXICAM 7.5 MG (MOBIC) TABLET PO SCH (08:51)
[2020-02-25] MEDS: ALPRAZolam 0.25 MG (XANAX) TAB PO SCH ×2 (08:51→20:18)
[2020-02-25] MEDS: VALSARTAN 160 MG (DIOVAN) TABLET PO SCH (08:51)
[2020-02-25] MEDS: LACTOBACILLUS ACIDOPHILUS (PROBIOTIC) CAPSULE PO SCH ×2 (08:51→20:16)
[2020-02-25] MEDS: METHIMAZOLE 5 MG PO SCH (08:51)
[2020-02-25] MEDS: VITAMIN D3 125 MCG (5,000 UNITS) CAPSULE PO SCH (08:51)
[2020-02-25] MEDS: NIFEdipine ER 30 MG (PROCARDIA XL) TAB PO SCH (08:51)
[2020-02-25] MEDS: CYANOCOBALAMIN 1,000 MCG (VITAMIN B-12) TABLET PO SCH (08:51)
[2020-02-25] MEDS: SERTRALINE 100 MG (ZOLOFT) TAB PO SCH (08:51)
[2020-02-25] MEDS: PANTOPRAZOLE 40 MG (PROTONIX) TAB PO SCH ×2 (08:51→20:21)
[2020-02-25] MEDS: MICONAZOLE 2% POWDER (DESENEX AF) 90 GM TOP SCH ×2 (08:52→20:29)
[2020-02-25] MEDS: LIDOCAINE 4% (SALONPAS) PATCH TP SCH ×2 (08:52→20:22)
[2020-02-25] MEDS: ENOXAPARIN 40 MG/0.4 ML (LOVENOX) SYR SC SCH (08:52)
[2020-02-25] MEDS: DICLOFENAC 1% GEL 100 GM (VOLTAREN) TUBE TOP SCH ×4 (08:52→20:22)
[2020-02-25] MEDS: ACETAMINOPHEN 650 MG PO SCH ×3 (08:53→20:16)
[2020-02-25] MEDS: SILDENAFIL 20 MG (REVATIO) TAB NON-FORMULARY PO SCH ×2 (09:00→20:19)
--- NOTE | 2020-02-25 09:03 | Physical Therapy Daily Note ---
PT Daily Note-Current Subjective Pt in BR with OT present upon arrival. Pt agrees to PT/OT co-treat. Pain Numeric Pain Scale: 4 Location: Right Location Body Site: Knee Pain Description: Ache Mental Status Patient Orientation: Person, Place, Situation Attachments: Oxygen (O2 monitored throughout tx for possible weening off O2) Transfers SCALE: Activities may be completed with or without assistive devices. 3-Dgdeeqkqre-zgaceat completes the activity by him/herself with no assistance from a helper. 5-Set-up or Clean-up Assistance-helper sets up or cleans up; patient completes activity. [place] assists only prior to or following the activity. 4-Supervision or Touching Assistance-helper provides verbal cues and/or touching/steadying and/or contact guard assistance as patient completes activity. Assistance may be provided throughout the activity or intermittently. 3-Partial/Moderate Assistance-helper does LESS THAN HALF the effort. [place] lifts, holds or supports trunk or limbs, but provides less than half the effort. 2-Substantial/Maximal Assistance-helper does MORE THAN HALF the effort. [place] lifts or holds trunk or limbs and provides more than half the effort. 0-Ixaqoarpd-uxkvpk does ALL the effort. Patient does none of the effort to complete the activity. Or, the assistance of 2 or more helpers is required for the patient to complete the activity. If activity was not attempted, code reason: 7-Patient Refused. 9-Not Applicable-not attempted and the patient did not perform the activity before the current illness, exacerbation or injury. 10-Not Attempted due to Environmental Limitations-(lack of equipment, weather restraints, etc.). 88-Not Attempted due to Medical Conditions or Safety Concerns. Sit to Lying (QC): 5 Sit to Stand (QC): 4 Weight Bearing Full Weight Bearing Full Weight Bearing Gait Training Does the Patient Walk?: Yes Distance: 30' x3 Walk 10 feet (QC): 4 Walk 50 ft with 2 Turns(QC): 4 Gait Persons Needed: 1 Gait Assistive Device: FWW Wheelchair Training Does the Pt Use a Wheelchair?: Yes Wheel 50 ft with 2 turns (QC): 5 Wheel 150 ft (QC): 5 Type of Wheelchair: Manual Treatments Co-treat with PT ([id number]), skills of 2 clinicians required for skilled care and instruction due to increased L knee pain, risk of falls and decreased activity tolerance. PT focusing on ambulation, transfers and mobility while OT focusing on ADLs and hand placement during mobility/transfers. Pt completed bed mobility on therapy mat with SBA. Pt amb. using FWW ~ 30' x3 with RB after each. O2 is monitored throughout tx. Pt propels WCH in hallway and returns to room to rest Supine in bed with O2 reapplied since Supine. All needs met, call light in hand. Assessment Current Status: Good Progress O2 drops after WCH mobility and again after each walk but quickly recovers to low to mid 90's. Each walk, the pt takes a little longer to recover. Pain has decreased even with movement after injection. Pt continues to improve with strength, activity tolerance & independence of tasks. PT Short Term Goals Short Term Goals Time Frame: Feb 04, 2020 Roll Left & Right: 4 Sit to lyin Lying to sitting on side of be: 3 Sit to stand: 3 Chair/nwt-nd-hpxxg transfer: 3 Walk 10 feet: 3 PT Opener Tender Goals Longterm Goals PT Longterm Goals Time Frame: Feb 18, 2020 Roll Left & Right (QC): 6 Sit to Lying (QC): 4 Lying-Sitting on Side/Bed(QC): 4 Sit to Stand (QC): 3 (Shelby) Chair/Cqj-ap-Hqcfy Xfer(QC): 3 (Shelby) Toilet Transfer (QC): 3 (Shelby) Car Transfer (QC): 3 ([place]hel[place]) Does the Patient Walk: No and Walking Goal IS indicated Walk 10 feet (QC): 3 Walk 50ft with 2 Turns (QC): 3 Walk 150 ft (QC): 88 Walking 10ft on Uneven Surface: 88 1 Step (curb) (QC): 88 4 Steps (QC): 88 12 Steps (QC): 88 Picking up an Object (QC): 88 Wheel 50 feet with 2 turns (QC: 6 Wheel 150 feet: 6 PT Plan Problem List Problem List: Activity Tolerance, Gait Treatment/Plan Treatment Plan: Continue Plan of Care Treatment Plan: Bed Mobility, Education, Functional Activity Renny, Functional Strength, Group Therapy, Gait, Safety, Therapeutic Exercise, Transfers Treatment Duration: Feb 18, 2020 Frequency: At least 5 of 7 days/Wk (IRF) Estimated Hrs Per Day: 1.5 hours per day Patient and/or Family Agrees t: Yes Safety Risks/Education Patient Education: Gait Training, Correct Positioning, Safety Issues Teaching Recipient: Patient Teaching Methods: Discussion Response to Teaching: Verbalize Understanding Time/GCodes Time In: 800 Time Out: 900 Total Billed Treatment Time: 60 Total Billed Treatment 1, FA (20m), WC (15m) & GT x2 (25m) SIENNA POND POWER TRANSFORMER INSPECTOR Feb 25, 2020 09:03
--- NOTE | 2020-02-25 11:33 | Occupational Ther Daily Note ---
OT Current Status-Daily Note Subjective Pt alert, sitting in recliner. Pt agrees to therapy. Pt c/o knee pain though did have pain meds at 0600, rated 4/10. Mental Status/Objective Patient Orientation: Person, Place, Time, Situation Attachments: Oxygen (1L) ADL-Treatment Pt agrees to shower. Pt able to transfer with CGA to min A throughout session today. Pt transferred to w/c then propelled w/c to bathroom. Transferred to toilet with min A and verbal cues for correct foot and hand placement. Pt used grabbars to stabilize self to manipulate pants, sat on toilet to cleanse self. CGA to transfer into shower using w/c and grabbars. Completed all of shower sitting on shower bench using long handle sponge, grabbars and hand held shower. Pt sat at sink to complete oral care and grooming, independently. After set up, pt able to complete upper body dressing by self. After set up, pt able to thread lower body clothing by self then close SBA in standing to hike pants over hips. Assist to don/doff HANNAH hose and pt able to don/doff shoes by self after set up. Therapy Code Descriptions/Definitions Functional [place] Measure: 0=Not Assessed/NA 4=Minimal Assistance 1=Total Assistance 5=Supervision or Setup 2=Maximal Assistance 6=Modified [place] 3=Moderate Assistance 7=Complete IndependenceSCALE: Activities may be completed with or without assistive devices. 6-Znylaaibld-bjhycwz completes the activity by him/herself with no assistance from a helper. 5-Set-up or Clean-up Assistance-helper sets up or cleans up; patient completes activity. [place] assists only prior to or following the activity. 4-Supervision or Touching Assistance-helper provides verbal cues and/or touchi ng/steadying and/or contact guard assistance as patient completes activity. Assistance may be provided throughout the activity or intermittently. 3-Partial/Moderate Assistance-helper does LESS THAN HALF the effort. [place] lifts, holds or supports trunk or limbs, but provides less than half the effort. 2-Substantial/Maximal Assistance-helper does MORE THAN HALF the effort. [place] lifts or holds trunk or limbs and provides more than half the effort. 4-Amdobovbh-adhlas does ALL the effort. Patient does none of the effort to complete the activity. Or, the assistance of 2 or more helpers is required for the patient to complete the activity. If activity was not attempted, code reason: 7-Patient Refused. 9-Not Applicable-not attempted and the patient did not perform the activity before the current illness, exacerbation or injury. 10-Not Attempted due to Environmental Limitations-(lack of equipment, weather restraints, etc.). 88-Not Attempted due to Medical Conditions or Safety Concerns. Oral Hygiene (QC): 6 Shower/Bathe Self (QC): 6 Upper Body Dressing (QC): 5 Lower Body Dressing (QC): 4 On/Off Footwear: 3 Toileting Hygiene (QC): 4 Toilet Transfer (QC): 4 When discussing home situation, pt's doorways into bathrooms are narrow and unable to allow access to w/c. Pt's bathroom that is typically used needs floor repairs and is unsafe to use. Other Treatment Co-treat with PT ([id number]), skills of 2 clinicians required for skilled care and instruction due to increased L knee pain, risk of falls and decreased activity tolerance. PT focusing on ambulation, transfers and mobility while OT focusing on ADLs and hand placement during mobility/transfers. Pt completed bed mobility on therapy mat with SBA. Pt is progressing with mobility, transfers and ambulation today. See PT notes for ambulation and O2 needs. OT Short Term Goals Short Term Goals Time Frame: Feb 09, 2020 Toileting hygiene: 3 Lower body dressin Putting on/taking off footwear: 3 OT Dynamometer Mechanic Goals Dynamometer Mechanic Goals Time Frame: Mar 10, 2020 Eating (QC): 6 Oral Hygiene (QC): 6 Toileting Hygiene (QC): 6 Shower/Bathe Self (QC): 6 Upper Body Dressing (QC): 6 Lower Body Dressing (QC): 6 On/Off Footwear (QC): 6 Additional Goals: 1-Demonstrate ADL Tasks, 2-Verbalize Understanding, 3- ImproveStrength/Renny 1=Demonstrate adherence to instructed precautions during ADL tasks. 2=Patient will verbalize/demonstrate understanding of assistive devices/modifications for ADL. 3=Patient will improve strength/tolerance for activity to enable patient to perform ADL's. OT Education/Plan Problem List/Assessment Assessment: Decreased Activ Tolerance, Decreased UE Strength, Impaired Funct Balance, Impaired Self-Care Skills Discharge Recommendations Plan/Recommendations: Continue POC Treatment Plan/Plan of Care Patient would benefit from OT for education, treatment and training to promote independence in ADL's, mobility, safety and/or upper extremity function for ADL's. Plan of Care: ADL Retraining, Functional Mobility, Group Exercise/Act as Ind, UE Funct Exercise/Act Treatment Duration: Feb 18, 2020 Frequency: At least 5 of 7 days/Wk (IRF) Estimated Hrs Per Day: 1.5 hours per day Agreement: Yes Rehab Potential: Fair Time/GCodes Start Time: 07:30 Stop Time: 09:00 Total Time Billed (hr/min): 90 Billed Treatment Time 1 visit-ADL 3 (45 min) FA 3 (45 min) co-treat with PT [id number], individual [id number] DENI GRISSOM Feb 25, 2020 11:33
--- NOTE | 2020-02-25 11:46 | PM&R Progress Note ---
Subjective HPI/CC On Admission Date Seen by Provider: Feb 25, 2020 Time Seen by Provider: 11:45 Subjective/Events-last exam 02/25/20: Dramatic progress now since right knee pain improved since Dr Dent injected right knee O2 maintained No new issues 02/24/20: Right knee injection has worked wonders BM yesterday Improved overall O2 maintained 02/23/20: Spoke to Dr. Dent and he performed injection of steroids on the right knee Knee had popped an caused a lot more pain Bowels moved yesterday Not really using the sit to stand anymore 02/22/20: Progressing very well Using still [id number] Weaning oxygen but she does desat during activity Team meeting tomorrow regarding disposition 02/21/20: Pt doing pretty well Bowels moved yesterday Oxygen remains at 1 liters Overall having some significant issues and continues to work with the sit to stand to try to be able to ambulate and return to independent living with her and her son helping out Will try to do everything we can to make that happen for her 02/20/20: Rash better Working with the site to stand well NHP could still be required until she is able to walk and do more for herself at home Her is disabled himself 02/19/20: Participation with therapy going well No pain reported except right knee Likely will need NHP 02/18/20: Rash improved with cream No new pain reported Right knee pain limits her activity May need NH placement 02/17/20: Monitor ambulation ability Sit to stand Rash on back 02/16/20: Family training today with and son Desats quickly Very anxious at times Will need to evaluate the next step in her care after family education 02/15/20: Sit to stand is very helpful Family education tomorrow with to see if he can manage the sit to stand May not be an option to go home 02/14/20: Pain pill will be given at 6 am to help therapy Hgb good at 9.7 Overall looks pretty good Much improved 02/13/20: Stool softener will be changed to prn Imodium prn Today is 51st anniversary 02/12/20: Participating in therapy Sit to stand Monitor right knee pain 02/11/20: Sit to stand working well for her Weakness improved Xanax helps her Patch and Voltaren helps her right knee 02/10/20: Had an ill episode earlier today Labs and c diff no acute issues Now resolved Doing well currently 02/09/20: NO issues Uses sit to stand well Very weak 02/08/20: Using sit to stand and doing very well Bowels moved today A lot of pain issues Requires a lot of care 02/07/20: Room air maintained O2 sat but with the minimal exertion she goes down into the 80 percent Discontinue Colestid Overall feels like she is doing much better Able to use the sit to stand pretty well 02/06/20: Has multiple little complaints DC PICC since it simply did not function properly DC Venofer O2 on 1L/min 02/05/20: Tearful at times Right knee pain is terrible at times Mobic will be restarted along with other home meds that have now been reviewed 02/04/20: Using sit to stand very well Heels are red so managing that O2 on/off 02/03/20: Oxycodone and Xanax ordered APAP Skateboard Standing with assist Memory loss noted Less edema right knee BM 02/02: Pt doing pretty well Participating in therapy Very motivated to improve Maintained on O2 2 liters 02/01/20: Right knee pain continues but considering the risk for complications from steroid injection after Covid, she will be managing Overall doing pretty well on 2 L of Oxygen Will replace Picc line since it was placed in the arm where she has had her previous mastectomy 01/31/20: Dr. Dent graciously agreed to see her for right knee pain and will initiate an injection Hgb 9.1 so midline will be placed with iron infusions 2 L of oxygen maintained After rounds Dr Dent updated me on the fact that no injection initiated due to high risk following COVID 01/30/20: Right knee pain continues Will reach out to Dr Dent tomorrow Tapazole restarted Midline needed for iron infusions Severe right knee pain 11/26 today so adjusted her pain meds and xray noted severe OA Dr Scott usually gives her a right knee injections every 3 months and she is overdue I will try to have ortho give pain injection Friday Tapazole not on her list and she has Graves disease she states O2 at 80% so will maintain 2L/min O2 Checking iron level since hgb 9.1 Adding TSH FT4 to labs BM today loose Review of Systems General: Fatigue, Malaise Pulmonary: Dyspnea Musculoskeletal: leg pain Objective Exam Vital Signs Vital Signs Date Time Temp Pulse Resp B/P (MAP) Pulse Ox O2 Delivery O2 Flow Rate FiO2 02/26/20 05:31 36.8 87 18 133/74 (93) 92 Nasal Cannula 1.00 Capillary Refill : Less Than 3 Seconds General Appearance: No Apparent Distress, WD/WN, Chronically ill HEENT: PERRL/EOMI, Normal ENT Inspection, Pharynx Normal Neck: Full Range of Motion, Normal Inspection, Non Tender, Supple, Carotid Bruit Respiratory: Chest Non Tender, Lungs Clear, No Accessory Muscle Use, No Respiratory Distress, Decreased Breath Sounds Cardiovascular: Regular Rate, Rhythm, No Edema, No Gallop, No JVD, No Murmur, Normal Peripheral Pulses Gastrointestinal: Normal Bowel Sounds, No Organomegaly, No Pulsatile Mass, Non Tender, Soft Back: Normal Inspection, No CVA Tenderness, No Vertebral Tenderness Extremity: Normal Capillary Refill, Normal Inspection, Normal Range of Motion, Non Tender, No Calf Tenderness, No Pedal Edema Neurologic/Psychiatric: Alert, Oriented x3, Normal Mood/Affect, media manager II-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 FIM Transfers Therapy Code Descriptions/Definitions Functional [place] Measure: 0=Not Assessed/NA 4=Minimal Assistance 1=Total Assistance 5=Supervision or Setup 2=Maximal Assistance 6=Modified [place] 3=Moderate Assistance 7=Complete IndependenceSCALE: Activities may be completed with or without assistive devices. 7-Grkwbyedfs-dgpoukf completes the activity by him/herself with no assistance from a helper. 5-Set-up or Clean-up Assistance-helper sets up or cleans up; patient completes activity. [place] assists only prior to or following the activity. 4-Supervision or Touching Assistance-helper provides verbal cues and/or touching/steadying and/or contact guard assistance as patient completes activity. Assistance may be provided throughout the activity or intermittently. 3-Partial/Moderate Assistance-helper does LESS THAN HALF the effort. [place] lifts, holds or supports trunk or limbs, but provides less than half the effort. 2-Substantial/Maximal Assistance-helper does MORE THAN HALF the effort. [place] lifts or holds trunk or limbs and provides more than half the effort. 2-Rtlebuusf-ikyobr does ALL the effort. Patient does none of the effort to complete the activity. Or, the assistance of 2 or more helpers is required for the patient to complete the activity. If activity was not attempted, code reason: 7-Patient Refused. 9-Not Applicable-not attempted and the patient did not perform the activity before the current illness, exacerbation or injury. 10-Not Attempted due to Environmental Limitations-(lack of equipment, weather restraints, etc.). 88-Not Attempted due to Medical Conditions or Safety Concerns. Roll Left to Right (QC): 6 Sit to Lying (QC): 5 Sit to Stand (QC): 4 Chair/Rbb-qt-Moaew Xfer(QC): 4 Car Transfer (QC): 1 Gait Training Does the Patient Walk?: Yes Distance: 25' Walk 10 feet (QC): 4 Walk 50 ft with 2 Turns(QC): 88 Walk 150 ft (QC): 88 Walking 10ft/uneven surface-QC: 88 Gait Persons Needed: 1 Gait Assistive Device: FWW Wheelchair Training Does the Pt Use a Wheelchair?: Yes Distance: 50'x2 Wheel 50 ft with 2 turns (QC): 6 Wheel 150 ft (QC): 5 Type of Wheelchair: Manual Stair Training 1 Step (curb) (QC): 88 4 Steps (QC): 88 12 Steps (QC): 88 Balance Picking up an Object (QC): 88 ADL-Treatment Eating (QC): 6 Oral Hygiene (QC): 6 Bathing Location: L Arm, R Arm, L Upper Leg, R Upper Leg, L Lower Leg (including foot), R Lower Leg (including foot), Chest, Abdomen, Buttocks, Perineal Area Shower/Bathe Self (QC): 6 Upper Body Dressing (QC): 5 Lower Body Dressing (QC): 4 On/Off Footwear (QC): 3 Toileting Hygiene (QC): 4 Toilet Transfer (QC): 4 Assessment/Plan Assessment and Plan Assess & Plan/Chief Complaint Assessment: Critical illness debility from COVID-19 dx 12/11/19 OA h/o breast cancer Allergic rhinitis HTN GERD Depression Lung nodules [facility] 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 since senior living stable Grave's disease Anxiety Severe right knee pain from OA chronic Plan: IRF protocol Wean O2 Pain meds BM regimen 01/29/20: Restart Tapazole 5mg daily Knee injection by ortho will be pursued tomorrow O2 01/30/20: Right knee injection will be requested from Dr Dent Pain meds Tapazole O2 01/31/20: Knee injection not performed due to COVID related risk Monitor O2 Midline and Venofer 02/01/20: Monitor closely O2 wean IRF protocol 02/01/30: Monitor O2 Aggressive therapy 02/03/20: Stood with assist and parallel bars today Improved status IV Venofer after PICC changed 02/04/20: Monitor O2 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 02/05/20: O2 Mobic Home meds 02/06/20: DC PICC since it simply did not function properly O2 02/07/20: Monitor closely O2 wean Sit to stand 02/08/20: Participation good Monitor pain 02/09/20: Sit to stand Continue therapy 02/10/20: Labs reviewed Monitor illness closely 02/11/20: Monitor closely Pain control right knee 02/12/20: Monitor right knee pain O2 Increase activity 02/13/20: Imodium prn Sit to stand Right knee pain 02/14/20: Monitor closely Monitor pain 02/15/20: Family education with sit to stand to see if home is an option 02/17/20: Monitor ambulation Rash treatment 02/18/20: Continue treatment O2 wean 02/19/20: Monitor O2 Pain management 02/20/20: Check labs in am Monitor BP 02/21/20: Labs reviewed Improved status Hemoglobin normal now 02/22/20/: Monitor O2 Increase ambulation 02/23/20: RIght knee injection, appreciate Dr Dent Monitor ambulation DC late next week 02/24/20: Improved knee pain will enable her to ambulate better Home late next week 02/25/20: Dramatic improvement Ambulate (1) Myopathy (2) COVID-19 (3) GERD (gastroesophageal reflux disease) (4) Hypoxia (5) HX: breast cancer (6) Anxiety (7) Depression JARRELL HURD DO Feb 25, 2020 11:46
--- NOTE | 2020-02-25 11:49 | Speech Therapy Daily Note ---
Speech Daily Progress Note Subjective Date Seen by Provider: Feb 25, 2020 Time Seen by Provider: 00:30 Patient was resting in bed following her PT and OT session which she states "wore me out". Objective Patient completed recall activities related to her sequencing and safety within her room/bathroom at 90% with min cues. Assessment Assessment Current Status: Good Progress Treatment Plan Continue Plan of Care Speech Short Term Goals Short Term Goals Short Term Goals 1) Patient will follow/recall multi step directions for wheelchair mobility without cues at 90% or greater. 2) Patient will recall sequencing for daily activities without cues at 90% or greater. Speech Alf Goals Advertising Account Representative Goals Patient will demonstrate safety awareness with all daily activities and processes. Speech-Plan Patient/Family Goals Patient/Family Goals: Patient is scheduled to return home on the where she lives with her . Treatment Plan Speech Therapy Treatment Plan: Continue Plan of Care Treatment Duration: Mar 03, 2020 Frequency: 4 times per week (Patient will receive ST 4-5x per week) Estimated Hrs Per Day: .5 hour per day Rehab Potential: Fair Barriers to Learning: Patient's recent severity of illness, cognitive deficit, although she is progressing Pt/Family Agrees to Plan: Yes Safety Risks/Education Teaching Recipient: Patient Teaching Methods: Demonstration, Discussion Response to Teaching: Verbalize Understanding, Return Demonstration Education Topics Provided: Continued safety within her room Time Speech Therapy Time In: 10:00 Speech Therapy Time Out: 10:30 Total Billed Time: 30 Billed Treatment Time [address] Feb 25, 2020 11:49
--- NOTE | 2020-02-25 15:41 | NUR ---
CM/SS CONCURRENT DOCUMENTATION Responded to patient request to discuss anticipated assistive devices. Reviewed that BSC, shower chair would be private pay items. Patient's spouse Keny has a newly issued FWW from his brief hospital stay for Covid and patient will use that once home. She indicates Keny has not and will not use the walker. Wheelchair should be billed to Medicare if patient's current diagnosis and level of functioning supports coverage. Patient and spouse both perseverating on the DME, covered items can not be ordered until closer to discharge. Spouse can purchase the other items at any time. Patient indicates that Keny was trying to move things around in the house which is stressful to her not being there. Continue intermittent review of progress and supportive visits for discharge planning.
[2020-02-25 18:33] VITALS: BP 127/60
--- NOTE | 2020-02-25 19:25 | NUR ---
BEDSIDE REPORT RECEIVED FROM GIL DEE, ASSUME CARE OF PT
[2020-02-25] MEDS: PRAMIPEXOLE 0.125 MG (MIRAPEX) TABLET PO SCH (20:17)
[2020-02-25] MEDS: SERTRALINE 50 MG (ZOLOFT) TABLET PO SCH (20:18)
--- NOTE | 2020-02-25 20:22 | NUR ---
PT TOOK ALL MED WITHOUT DIFFICULTY, UP TO COMMODE & CHAIR WITH 1 PERSON ASSIST & WALKER
[2020-02-26 05:31] VITALS: BP 133/74
--- NOTE | 2020-02-26 06:53 | PM&R Progress Note ---
Subjective HPI/CC On Admission Date Seen by Provider: Feb 26, 2020 Time Seen by Provider: 12:30 Subjective/Events-last exam 02/26/20: 1L/min Stomach issues at times Very somatic and anxious Right knee improved 02/25/20: Dramatic progress now since right knee pain improved since Dr Dent injected r ight knee O2 maintained No new issues 02/24/20: Right knee injection has worked wonders BM yesterday Improved overall O2 maintained 02/23/20: Spoke to Dr. Dent and he performed injection of steroids on the right knee Knee had popped an caused a lot more pain Bowels moved yesterday Not really using the sit to stand anymore 02/22/20: Progressing very well Using still [id number] Weaning oxygen but she does desat during activity Team meeting tomorrow regarding disposition 02/21/20: Pt doing pretty well Bowels moved yesterday Oxygen remains at 1 liters Overall having some significant issues and continues to work with the sit to stand to try to be able to ambulate and return to independent living with her and her son helping out Will try to do everything we can to make that happen for her 02/20/20: Rash better Working with the site to stand well NHP could still be required until she is able to walk and do more for herself at home Her is disabled himself 02/19/20: Participation with therapy going well No pain reported except right knee Likely will need NHP 02/18/20: Rash improved with cream No new pain reported Right knee pain limits her activity May need NH placement 02/17/20: Monitor ambulation ability Sit to stand Rash on back 02/16/20: Family training today with and son Desats quickly Very anxious at times Will need to evaluate the next step in her care after family education 02/15/20: Sit to stand is very helpful Family education tomorrow with to see if he can manage the sit to stand May not be an option to go home 02/14/20: Pain pill will be given at 6 am to help therapy Hgb good at 9.7 Overall looks pretty good Much improved 02/13/20: Stool softener will be changed to prn Imodium prn Today is 51st anniversary 02/12/20: Participating in therapy Sit to stand Monitor right knee pain 02/11/20: Sit to stand working well for her Weakness improved Xanax helps her Patch and Voltaren helps her right knee 02/10/20: Had an ill episode earlier today Labs and c diff no acute issues Now resolved Doing well currently 02/09/20: NO issues Uses sit to stand well Very weak 02/08/20: Using sit to stand and doing very well Bowels moved today A lot of pain issues Requires a lot of care 02/07/20: Room air maintained O2 sat but with the minimal exertion she goes down into the 80 percent Discontinue Colestid Overall feels like she is doing much better Able to use the sit to stand pretty well 02/06/20: Has multiple little complaints DC PICC since it simply did not function properly DC Venofer O2 on 1L/min 02/05/20: Tearful at times Right knee pain is terrible at times Mobic will be restarted along with other home meds that have now been reviewed 02/04/20: Using sit to stand very well Heels are red so managing that O2 on/off 02/03/20: Oxycodone and Xanax ordered APAP Skateboard Standing with assist Memory loss noted Less edema right knee BM 02/02: Pt doing pretty well Participating in therapy Very motivated to improve Maintained on O2 2 liters 02/01/20: Right knee pain continues but considering the risk for complications from steroid injection after Covid, she will be managing Overall doing pretty well on 2 L of Oxygen Will replace Picc line since it was placed in the arm where she has had her previous mastectomy 01/31/20: Dr. Dent graciously agreed to see her for right knee pain and will initiate an injection Hgb 9.1 so midline will be placed with iron infusions 2 L of oxygen maintained After rounds Dr Dent updated me on the fact that no injection initiated due to high risk following COVID 01/30/20: Right knee pain continues Will reach out to Dr Dent tomorrow Tapazole restarted Midline needed for iron infusions Severe right knee pain 11/26 today so adjusted her pain meds and xray noted severe OA Dr Scott usually gives her a right knee injections every 3 months and she is overdue I will try to have ortho give pain injection Friday Tapazole not on her list and she has Graves disease she states O2 at 80% so will maintain 2L/min O2 Checking iron level since hgb 9.1 Adding TSH FT4 to labs BM today loose Review of Systems General: Fatigue, Malaise Musculoskeletal: leg pain Neurological: Weakness Objective Exam Vital Signs Vital Signs Date Time Temp Pulse Resp B/P (MAP) Pulse Ox O2 Delivery O2 Flow Rate FiO2 02/27/20 06:02 36.4 72 18 177/84 (115) 94 Nasal Cannula 1.00 Capillary Refill : Less Than 3 Seconds General Appearance: No Apparent Distress, WD/WN, Chronically ill HEENT: PERRL/EOMI, Normal ENT Inspection, Pharynx Normal Neck: Full Range of Motion, Normal Inspection, Non Tender, Supple, Carotid Bruit Respiratory: Chest Non Tender, Lungs Clear, No Accessory Muscle Use, No Respiratory Distress, Decreased Breath Sounds Cardiovascular: Regular Rate, Rhythm, No Edema, No Gallop, No JVD, No Murmur, Normal Peripheral Pulses Gastrointestinal: Normal Bowel Sounds, No Organomegaly, No Pulsatile Mass, Non Tender, Soft Back: Normal Inspection, No CVA Tenderness, No Vertebral Tenderness Extremity: Normal Capillary Refill, Normal Inspection, Normal Range of Motion, Non Tender, No Calf Tenderness, No Pedal Edema Neurologic/Psychiatric: Alert, Oriented x3, Normal Mood/Affect, apple turner II-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 FIM Transfers Therapy Code Descriptions/Definitions Functional [place] Measure: 0=Not Assessed/NA 4=Minimal Assistance 1=Total Assistance 5=Supervision or Setup 2=Maximal Assistance 6=Modified [place] 3=Moderate Assistance 7=Complete IndependenceSCALE: Activities may be completed with or without assistive devices. 6-Orynkcveqf-qfkpzeb completes the activity by him/herself with no assistance from a helper. 5-Set-up or Clean-up Assistance-helper sets up or cleans up; patient completes activity. [place] assists only prior to or following the activity. 4-Supervision or Touching Assistance-helper provides verbal cues and/or touching/steadying and/or contact guard assistance as patient completes activity. Assistance may be provided throughout the activity or intermittently. 3-Partial/Moderate Assistance-helper does LESS THAN HALF the effort. [place] lifts, holds or supports trunk or limbs, but provides less than half the effort. 2-Substantial/Maximal Assistance-helper does MORE THAN HALF the effort. [place] lifts or holds trunk or limbs and provides more than half the effort. 0-Ecrcrwhyi-fnnvgv does ALL the effort. Patient does none of the effort to compl ete the activity. Or, the assistance of 2 or more helpers is required for the patient to complete the activity. If activity was not attempted, code reason: 7-Patient Refused. 9-Not Applicable-not attempted and the patient did not perform the activity before the current illness, exacerbation or injury. 10-Not Attempted due to Environmental Limitations-(lack of equipment, weather restraints, etc.). 88-Not Attempted due to Medical Conditions or Safety Concerns. Roll Left to Right (QC): 6 Sit to Lying (QC): 5 Sit to Stand (QC): 4 Chair/Dmg-gf-Qmufl Xfer(QC): 4 Car Transfer (QC): 1 Gait Training Does the Patient Walk?: Yes Distance: 30' x3 Walk 10 feet (QC): 4 Walk 50 ft with 2 Turns(QC): 4 Walk 150 ft (QC): 88 Walking 10ft/uneven surface-QC: 88 Gait Persons Needed: 1 Gait Assistive Device: FWW Wheelchair Training Does the Pt Use a Wheelchair?: Yes Distance: 50'x2 Wheel 50 ft with 2 turns (QC): 5 Wheel 150 ft (QC): 5 Type of Wheelchair: Manual Stair Training 1 Step (curb) (QC): 88 4 Steps (QC): 88 12 Steps (QC): 88 Balance Picking up an Object (QC): 88 ADL-Treatment Eating (QC): 6 Oral Hygiene (QC): 6 Bathing Location: L Arm, R Arm, L Upper Leg, R Upper Leg, L Lower Leg (including foot), R Lower Leg (including foot), Chest, Abdomen, Buttocks, Perineal Area Shower/Bathe Self (QC): 6 Upper Body Dressing (QC): 5 Lower Body Dressing (QC): 4 On/Off Footwear (QC): 3 Toileting Hygiene (QC): 4 Toilet Transfer (QC): 4 Assessment/Plan Assessment and Plan Assess & Plan/Chief Complaint Assessment: Critical illness debility from COVID-19 dx 12/11/19 OA h/o breast cancer Allergic rhinitis HTN GERD Depression Lung nodules [facility] 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 since shelter stable Grave's disease Anxiety Severe right knee pain from OA chronic Plan: IRF protocol Wean O2 Pain meds BM regimen 01/29/20: Restart Tapazole 5mg daily Knee injection by ortho will be pursued tomorrow O2 01/30/20: Right knee injection will be requested from Dr Dent Pain meds Tapazole O2 01/31/20: Knee injection not performed due to COVID related risk Monitor O2 Midline and Venofer 02/01/20: Monitor closely O2 wean IRF protocol 02/01/30: Monitor O2 Aggressive therapy 02/03/20: Stood with assist and parallel bars today Improved status IV Venofer after PICC changed 02/04/20: Monitor O2 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 02/05/20: O2 Mobic Home meds 02/06/20: DC PICC since it simply did not function properly O2 02/07/20: Monitor closely O2 wean Sit to stand 02/08/20: Participation good Monitor pain 02/09/20: Sit to stand Continue therapy 02/10/20: Labs reviewed Monitor illness closely 02/11/20: Monitor closely Pain control right knee 02/12/20: Monitor right knee pain O2 Increase activity 02/13/20: Imodium prn Sit to stand Right knee pain 02/14/20: Monitor closely Monitor pain 02/15/20: Family education with sit to stand to see if home is an option 02/17/20: Monitor ambulation Rash treatment 02/18/20: Continue treatment O2 wean 02/19/20: Monitor O2 Pain management 02/20/20: Check labs in am Monitor BP 02/21/20: Labs reviewed Improved status Hemoglobin normal now 02/22/20/: Monitor O2 Increase ambulation 02/23/20: RIght knee injection, appreciate Dr Dent Monitor ambulation DC late next week 02/24/20: Improved knee pain will enable her to ambulate better Home late next week 02/25/20: Dramatic improvement Ambulate 02/26/20: Monitor BP Monitor pain (1) Myopathy (2) COVID-19 (3) GERD (gastroesophageal reflux disease) (4) Hypoxia (5) HX: breast cancer (6) Anxiety (7) Depression JARRELL HURD DO Feb 26, 2020 06:53
[2020-02-26] MEDS: LACTOBACILLUS ACIDOPHILUS (PROBIOTIC) CAPSULE PO SCH ×2 (09:24→20:05)
[2020-02-26] MEDS: METHIMAZOLE 5 MG PO SCH (09:24)
[2020-02-26] MEDS: CYANOCOBALAMIN 1,000 MCG (VITAMIN B-12) TABLET PO SCH (09:25)
[2020-02-26] MEDS: SERTRALINE 100 MG (ZOLOFT) TAB PO SCH (09:25)
[2020-02-26] MEDS: VITAMIN D3 125 MCG (5,000 UNITS) CAPSULE PO SCH (09:25)
[2020-02-26] MEDS: GABAPENTIN 300 MG (NEURONTIN) CAP PO SCH ×3 (09:25→20:07)
[2020-02-26] MEDS: VALSARTAN 160 MG (DIOVAN) TABLET PO SCH (09:25)
[2020-02-26] MEDS: ASCORBIC ACID (VIT C) 500 MG TABLET PO SCH (09:25)
[2020-02-26] MEDS: ALPRAZolam 0.25 MG (XANAX) TAB PO SCH ×2 (09:25→20:07)
[2020-02-26] MEDS: MELOXICAM 7.5 MG (MOBIC) TABLET PO SCH (09:25)
[2020-02-26] MEDS: amLODIPine 5 MG (NORVASC) TAB PO SCH (09:25)
[2020-02-26] MEDS: PANTOPRAZOLE 40 MG (PROTONIX) TAB PO SCH ×2 (09:25→20:08)
[2020-02-26] MEDS: NIFEdipine ER 30 MG (PROCARDIA XL) TAB PO SCH (09:25)
[2020-02-26] MEDS: ENOXAPARIN 40 MG/0.4 ML (LOVENOX) SYR SC SCH (09:26)
[2020-02-26] MEDS: LIDOCAINE 4% (SALONPAS) PATCH TP SCH ×2 (09:26→20:17)
[2020-02-26] MEDS: DICLOFENAC 1% GEL 100 GM (VOLTAREN) TUBE TOP SCH ×4 (09:29→20:13)
[2020-02-26] MEDS: ACETAMINOPHEN 650 MG PO SCH ×3 (09:30→20:09)
[2020-02-26] MEDS: MICONAZOLE 2% POWDER (DESENEX AF) 90 GM TOP SCH ×2 (09:30→20:12)
[2020-02-26] MEDS: SILDENAFIL 20 MG (REVATIO) TAB NON-FORMULARY PO SCH ×2 (09:32→20:12)
--- NOTE | 2020-02-26 10:38 | Physical Therapy Daily Note ---
PT Daily Note-Current Subjective Pt. states she has been having diarrhea all morning and does not want to leave the room. Mental Status Patient Orientation: Person, Place, Time, Situation Attachments: Oxygen (1L) Transfers SCALE: Activities may be completed with or without assistive devices. 6-Nxymgpwtim-fybvidm completes the activity by him/herself with no assistance from a helper. 5-Set-up or Clean-up Assistance-helper sets up or cleans up; patient completes activity. Eugene assists only prior to or following the activity. 4-Supervision or Touching Assistance-helper provides verbal cues and/or touching/steadying and/or contact guard assistance as patient completes activity. Assistance may be provided throughout the activity or intermittently. 3-Partial/Moderate Assistance-helper does LESS THAN HALF the effort. Eugene lifts, holds or supports trunk or limbs, but provides less than half the effort. 2-Substantial/Maximal Assistance-helper does MORE THAN HALF the effort. Eugene lifts or holds trunk or limbs and provides more than half the effort. 1-Xirmivvxg-relcut does ALL the effort. Patient does none of the effort to complete the activity. Or, the assistance of 2 or more helpers is required for the patient to complete the activity. If activity was not attempted, code reason: 7-Patient Refused. 9-Not Applicable-not attempted and the patient did not perform the activity be fore the current illness, exacerbation or injury. 10-Not Attempted due to Environmental Limitations-(lack of equipment, weather restraints, etc.). 88-Not Attempted due to Medical Conditions or Safety Concerns. Sit to Lying (QC): 6 Weight Bearing Full Weight Bearing Full Weight Bearing Exercises Supine Ex: Ankle pumps, Quad Set, Heel Slides, Short Arc Quads, Straight leg raise (10 reps), Hip abd/add Supine Reps: 20 Seated Therapy Exercises: Sit to stand (5) Seated Reps: 5 Treatments LE exercises and transfers Assessment Current Status: Good Progress Pt. completed LE exercises on RA with O2 sats maintaining in low 90s. Pt. completed sit to stands x 5, initially on RA but O2 sats dropped to 87% and 1L O2 was replaced and O2 levels gradually returned. Pt. had c/o R knee pain and diarrhea thus declining ambulation this date. Pt. returned to supine position, fatigued post session, all needs met, O2 in situ. PT Short Term Goals Short Term Goals Time Frame: Feb 04, 2020 Roll Left & Right: 4 Sit to lyin Lying to sitting on side of be: 3 Sit to stand: 3 Chair/nka-op-vzpmf transfer: 3 Walk 10 feet: 3 PT Absorption Operator Goals Absorption Operator Goals PT Correction Goals Time Frame: Feb 18, 2020 Roll Left & Right (QC): 6 Sit to Lying (QC): 4 Lying-Sitting on Side/Bed(QC): 4 Sit to Stand (QC): 3 (Shelby) Chair/Gfr-nx-Qonjm Xfer(QC): 3 (Shelby) Toilet Transfer (QC): 3 (Shelby) Car Transfer (QC): 3 (Shelby) Does the Patient Walk: No and Walking Goal IS indicated Walk 10 feet (QC): 3 Walk 50ft with 2 Turns (QC): 3 Walk 150 ft (QC): 88 Walking 10ft on Uneven Surface: 88 1 Step (curb) (QC): 88 4 Steps (QC): 88 12 Steps (QC): 88 Picking up an Object (QC): 88 Wheel 50 feet with 2 turns (QC: 6 Wheel 150 feet: 6 PT Plan Treatment/Plan Treatment Plan: Continue Plan of Care Treatment Plan: Bed Mobility, Education, Functional Activity Renny, Functional Strength, Group Therapy, Gait, Safety, Therapeutic Exercise, Transfers Treatment Duration: Feb 18, 2020 Frequency: At least 5 of 7 days/Wk (IRF) Estimated Hrs Per Day: 1.5 hours per day Patient and/or Family Agrees t: Yes Time/GCodes Time In: 1025 Time Out: 1050 Total Billed Treatment Time: 25 Total Billed Treatment 1, Ex 25' TUAN PELLETIER PT Feb 26, 2020 10:38
[2020-02-26 17:27] VITALS: BP 139/66
--- NOTE | 2020-02-26 19:19 | NUR ---
Bedside report received from VALERIE DEE, assume care of pt
[2020-02-26] MEDS: PRAMIPEXOLE 0.125 MG (MIRAPEX) TABLET PO SCH (20:06)
[2020-02-26] MEDS: SERTRALINE 50 MG (ZOLOFT) TABLET PO SCH (20:07)
[2020-02-26] MEDS: oxyCODONE/APAP 5/325MG (PERCOCET 5) TABLET PO PRN (20:07)
--- NOTE | 2020-02-26 20:07 | NUR ---
Up to commode with 1 person assist up & walker, c/o RT KNEE pain level 7/10 on numeric scale, Percocet 1 tab given, also c/o 5 stools today Colestid 1 tab given
[2020-02-26] MEDS: COLESTIPOL 1 GM (COLESTID) TAB PO PRN (20:29)
--- NOTE | 2020-02-27 05:48 | NUR ---
Scheduled Oxyir 5mg given rates pain 5/10 on numeric scale
[2020-02-27 06:02] VITALS: BP 177/84
--- NOTE | 2020-02-27 06:30 | NUR ---
Rates pain 4/10 on numeric scale
[2020-02-27] MEDS: GABAPENTIN 300 MG (NEURONTIN) CAP PO SCH ×3 (07:56→20:24)
[2020-02-27] MEDS: ENOXAPARIN 40 MG/0.4 ML (LOVENOX) SYR SC SCH (07:56)
[2020-02-27] MEDS: VALSARTAN 160 MG (DIOVAN) TABLET PO SCH (07:57)
[2020-02-27] MEDS: ALPRAZolam 0.25 MG (XANAX) TAB PO SCH ×2 (07:57→20:24)
[2020-02-27] MEDS: MELOXICAM 7.5 MG (MOBIC) TABLET PO SCH (07:57)
[2020-02-27] MEDS: LIDOCAINE 4% (SALONPAS) PATCH TP SCH ×2 (07:57→20:29)
[2020-02-27] MEDS: VITAMIN D3 125 MCG (5,000 UNITS) CAPSULE PO SCH (07:57)
[2020-02-27] MEDS: PANTOPRAZOLE 40 MG (PROTONIX) TAB PO SCH ×2 (07:58→20:25)
[2020-02-27] MEDS: ASCORBIC ACID (VIT C) 500 MG TABLET PO SCH (07:58)
[2020-02-27] MEDS: amLODIPine 5 MG (NORVASC) TAB PO SCH (07:58)
[2020-02-27] MEDS: LACTOBACILLUS ACIDOPHILUS (PROBIOTIC) CAPSULE PO SCH ×2 (07:58→20:24)
[2020-02-27] MEDS: CYANOCOBALAMIN 1,000 MCG (VITAMIN B-12) TABLET PO SCH (07:58)
[2020-02-27] MEDS: SERTRALINE 100 MG (ZOLOFT) TAB PO SCH (07:58)
[2020-02-27] MEDS: NIFEdipine ER 30 MG (PROCARDIA XL) TAB PO SCH (07:58)
[2020-02-27] MEDS: METHIMAZOLE 5 MG PO SCH (07:58)
[2020-02-27] MEDS: MICONAZOLE 2% POWDER (DESENEX AF) 90 GM TOP SCH ×2 (07:59→20:30)
[2020-02-27] MEDS: DICLOFENAC 1% GEL 100 GM (VOLTAREN) TUBE TOP SCH ×4 (07:59→20:29)
[2020-02-27] MEDS: ACETAMINOPHEN 650 MG PO SCH ×3 (08:01→20:27)
[2020-02-27] MEDS: SILDENAFIL 20 MG (REVATIO) TAB NON-FORMULARY PO SCH ×2 (08:10→20:25)
--- NOTE | 2020-02-27 13:09 | PM&R Progress Note ---
Subjective HPI/CC On Admission Date Seen by Provider: Feb 27, 2020 Time Seen by Provider: 13:00 Subjective/Events-last exam 02/27/20: Very somatic Cough at times No major issues No pain 02/26/20: 1L/min Stomach issues at times Very somatic and anxious Right knee improved 02/25/20: Dramatic progress now since right knee pain improved since Dr Dent injected right knee O2 maintained No new issues 02/24/20: Right knee injection has worked wonders BM yesterday Improved overall O2 maintained 02/23/20: Spoke to Dr. Dent and he performed injection of steroids on the right knee Knee had popped an caused a lot more pain Bowels moved yesterday Not really using the sit to stand anymore 02/22/20: Progressing very well Using still mvd-gr-fotlp Weaning oxygen but she does desat during activity Team meeting tomorrow regarding disposition 02/21/20: Pt doing pretty well Bowels moved yesterday Oxygen remains at 1 liters Overall having some significant issues and continues to work with the sit to stand to try to be able to ambulate and return to independent living with her and her son helping out Will try to do everything we can to make that happen for her 02/20/20: Rash better Working with the site to stand well NHP could still be required until she is able to walk and do more for herself at home Her is disabled himself 02/19/20: Participation with therapy going well No pain reported except right knee Likely will need NHP 02/18/20: Rash improved with cream No new pain reported Right knee pain limits her activity May need NH placement 02/17/20: Monitor ambulation ability Sit to stand Rash on back 02/16/20: Family training today with and son Desats quickly Very anxious at times Will need to evaluate the next step in her care after family education 02/15/20: Sit to stand is very helpful Family education tomorrow with to see if he can manage the sit to stand May not be an option to go home 02/14/20: Pain pill will be given at 6 am to help therapy Hgb good at 9.7 Overall looks pretty good Much improved 02/13/20: Stool softener will be changed to prn Imodium prn Today is 51st anniversary 02/12/20: Participating in therapy Sit to stand Monitor right knee pain 02/11/20: Sit to stand working well for her Weakness improved Xanax helps her Patch and Voltaren helps her right knee 02/10/20: Had an ill episode earlier today Labs and c diff no acute issues Now resolved Doing well currently 02/09/20: NO issues Uses sit to stand well Very weak 02/08/20: Using sit to stand and doing very well Bowels moved today A lot of pain issues Requires a lot of care 02/07/20: Room air maintained O2 sat but with the minimal exertion she goes down into the 80 percent Discontinue Colestid Overall feels like she is doing much better Able to use the sit to stand pretty well 02/06/20: Has multiple little complaints DC PICC since it simply did not function properly DC Venofer O2 on 1L/min 02/05/20: Tearful at times Right knee pain is terrible at times Mobic will be restarted along with other home meds that have now been reviewed 02/04/20: Using sit to stand very well Heels are red so managing that O2 on/off 02/03/20: Oxycodone and Xanax ordered APAP Skateboard Standing with assist Memory loss noted Less edema right knee BM 02/02: Pt doing pretty well Participating in therapy Very motivated to improve Maintained on O2 2 liters 02/01/20: Right knee pain continues but considering the risk for complications from steroid injection after Covid, she will be managing Overall doing pretty well on 2 L of Oxygen Will replace Picc line since it was placed in the arm where she has had her previous mastectomy 01/31/20: Dr. Dent graciously agreed to see her for right knee pain and will initiate an injection Hgb 9.1 so midline will be placed with iron infusions 2 L of oxygen maintained After rounds Dr Dent updated me on the fact that no injection initiated due to high risk following COVID 01/30/20: Right knee pain continues Will reach out to Dr Dent tomorrow Tapazole restarted Midline needed for iron infusions Severe right knee pain 10/ today so adjusted her pain meds and xray noted severe OA Dr Scott usually gives her a right knee injections every 3 months and she is overdue I will try to have ortho give pain injection Friday Tapazole not on her list and she has Graves disease she states O2 at 80% so will maintain 2L/min O2 Checking iron level since hgb 9.1 Adding TSH FT4 to labs BM today loose Review of Systems General: Fatigue, Malaise Pulmonary: Dyspnea, Cough Objective Exam Vital Signs Vital Signs Date Time Temp Pulse Resp B/P (MAP) Pulse Ox O2 Delivery O2 Flow Rate FiO2 02/27/20 17:37 36.8 72 16 160/70 (100) 95 Nasal Cannula 1.00 Capillary Refill : Less Than 3 Seconds General Appearance: No Apparent Distress, WD/WN, Chronically ill HEENT: PERRL/EOMI, Normal ENT Inspection, Pharynx Normal Neck: Full Range of Motion, Normal Inspection, Non Tender, Supple, Carotid Bruit Respiratory: Chest Non Tender, Lungs Clear, No Accessory Muscle Use, No Respiratory Distress, Decreased Breath Sounds Cardiovascular: Regular Rate, Rhythm, No Edema, No Gallop, No JVD, No Murmur, Normal Peripheral Pulses Gastrointestinal: Normal Bowel Sounds, No Organomegaly, No Pulsatile Mass, Non Tender, Soft Back: Normal Inspection, No CVA Tenderness, No Vertebral Tenderness Extremity: Normal Capillary Refill, Normal Inspection, Normal Range of Motion, Non Tender, No Calf Tenderness, No Pedal Edema Neurologic/Psychiatric: Alert, Oriented x3, Normal Mood/Affect, welder/fabricator II-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 FIM Transfers Therapy Code Descriptions/Definitions Functional [place] Measure: 0=Not Assessed/NA 4=Minimal Assistance 1=Total Assistance 5=Supervision or Setup 2=Maximal Assistance 6=Modified [place] 3=Moderate Assistance 7=Complete IndependenceSCALE: Activities may be completed with or without assistive devices. 5-Kdicxzfsys-ecmqala completes the activity by him/herself with no assistance from a helper. 5-Set-up or Clean-up Assistance-helper sets up or cleans up; patient completes activity. [place] assists only prior to or following the activity. 4-Supervision or Touching Assistance-helper provides verbal cues and/or touching/steadying and/or contact guard assistance as patient completes activity. Assistance may be provided throughout the activity or intermittently. 3-Partial/Moderate Assistance-helper does LESS THAN HALF the effort. [place] lifts, holds or supports trunk or limbs, but provides less than half the effort. 2-Substantial/Maximal Assistance-helper does MORE THAN HALF the effort. [place] lifts or holds trunk or limbs and provides more than half the effort. 4-Hnkvwdwzf-aqdmpt does ALL the effort. Patient does none of the effort to complete the activity. Or, the assistance of 2 or more helpers is required for the patient to complete the activity. If activity was not attempted, code reason: 7-Patient Refused. 9-Not Applicable-not attempted and the patient did not perform the activity before the current illness, exacerbation or injury. 10-Not Attempted due to Environmental Limitations-(lack of equipment, weather restraints, etc.). 88-Not Attempted due to Medical Conditions or Safety Concerns. Roll Left to Right (QC): 6 Sit to Lying (QC): 6 Sit to Stand (QC): 4 Chair/Hpl-he-[place] Xfer(QC): 4 Car Transfer (QC): 1 Gait Training Does the Patient Walk?: Yes Distance: 30' x3 Walk 10 feet (QC): 4 Walk 50 ft with 2 Turns(QC): 4 Walk 150 ft (QC): 88 Walking 10ft/uneven surface-QC: 88 Gait Persons Needed: 1 Gait Assistive Device: FWW Wheelchair Training Does the Pt Use a Wheelchair?: Yes Distance: 50'x2 Wheel 50 ft with 2 turns (QC): 5 Wheel 150 ft (QC): 5 Type of Wheelchair: Manual Stair Training 1 Step (curb) (QC): 88 4 Steps (QC): 88 12 Steps (QC): 88 Balance Picking up an Object (QC): 88 ADL-Treatment Eating (QC): 6 Oral Hygiene (QC): 6 Bathing Location: L Arm, R Arm, L Upper Leg, R Upper Leg, L Lower Leg (including foot), R Lower Leg (including foot), Chest, Abdomen, Buttocks, Perineal Area Shower/Bathe Self (QC): 6 Upper Body Dressing (QC): 5 Lower Body Dressing (QC): 4 On/Off Footwear (QC): 3 Toileting Hygiene (QC): 4 Toilet Transfer (QC): 4 Assessment/Plan Assessment and Plan Assess & Plan/Chief Complaint Assessment: Critical illness debility from COVID-19 dx 12/11/19 OA h/o breast cancer Allergic rhinitis HTN GERD Depression Lung nodules [facility] 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 since 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 Grave's disease Anxiety Severe right knee pain from OA chronic Plan: IRF protocol Wean O2 Pain meds BM regimen 01/29/20: Restart Tapazole 5mg daily Knee injection by ortho will be pursued tomorrow O2 01/30/20: Right knee injection will be requested from Dr Dent Pain meds Tapazole O2 01/31/20: Knee injection not performed due to COVID related risk Monitor O2 Midline and Venofer 02/01/20: Monitor closely O2 wean IRF protocol 02/01/30: Monitor O2 Aggressive therapy 02/03/20: Stood with assist and parallel bars today Improved status IV Venofer after PICC changed 02/04/20: Monitor O2 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 02/05/20: O2 Mobic Home meds 02/06/20: DC PICC since it simply did not function properly O2 02/07/20: Monitor closely O2 wean Sit to stand 02/08/20: Participation good Monitor pain 02/09/20: Sit to stand Continue therapy 02/10/20: Labs reviewed Monitor illness closely 02/11/20: Monitor closely Pain control right knee 02/12/20: Monitor right knee pain O2 Increase activity 02/13/20: Imodium prn Sit to stand Right knee pain 02/14/20: Monitor closely Monitor pain 02/15/20: Family education with sit to stand to see if home is an option 02/17/20: Monitor ambulation Rash treatment 02/18/20: Continue treatment O2 wean 02/19/20: Monitor O2 Pain management 02/20/20: Check labs in am Monitor BP 02/21/20: Labs reviewed Improved status Hemoglobin normal now 02/22/20/: Monitor O2 Increase ambulation 02/23/20: RIght knee injection, appreciate Dr Dent Monitor ambulation DC late next week 02/24/20: Improved knee pain will enable her to ambulate better Home late next week 02/25/20: Dramatic improvement Ambulate 02/26/20: Monitor BP Monitor pain 02/27/20: DC Friday Patient tends to be somatic (1) Myopathy (2) COVID-19 (3) GERD (gastroesophageal reflux disease) (4) Hypoxia (5) HX: breast cancer (6) Anxiety (7) Depression JARRELL HURD DO Feb 27, 2020 13:09
--- NOTE | 2020-02-27 16:30 | NUR ---
Fadumo is a 74 yo female who is currently present on ARU post COVID/Pneumonia. Patient is currently A&O X4 and does report intermittent pain in her right knee. She currently has a lidocaine patch present and does report some relief with this. Patient is currently on 1L NC and is tolerating well. Patient appears to be progressing very well. She currently requires SBA/contact guard assist for transfers. She reported to this nurse that current discharge date home is set for 03/03. No issues noted with patient. She is doing very well. This nurse will continued to monitor patient throughout shift.
[2020-02-27] MEDS ORDERED: CHLORASEPTIC LOZENGE MM PRN ×2 (16:45)
[2020-02-27] MEDS ORDERED: CHLORASEPTIC LOZENGE MM ONE (16:47)
[2020-02-27 17:37] VITALS: BP 160/70
--- NOTE | 2020-02-27 19:21 | NUR ---
Bedside report received from CYNTHIA DEE, assume care of pt
[2020-02-27] MEDS: SERTRALINE 50 MG (ZOLOFT) TABLET PO SCH (20:24)
[2020-02-27] MEDS: PRAMIPEXOLE 0.125 MG (MIRAPEX) TABLET PO SCH (20:24)
[2020-02-27] MEDS: COLESTIPOL 1 GM (COLESTID) TAB PO PRN (20:29)
[2020-02-27] MEDS: oxyCODONE/APAP 5/325MG (PERCOCET 5) TABLET PO PRN (20:29)
--- NOTE | 2020-02-27 20:29 | NUR ---
pt requesting pain pill for pain in RT KNEE, pain level, pain level 8/10 on numeric scale, Percocet 1 tab given
[2020-02-27] MEDS: ESTROGENS CONJ. CREAM 30 GM (PREMARIN) TUBE PV SCH (20:36)
--- NOTE | 2020-02-27 21:15 | NUR ---
Rates pain level 5/10 on numeric scale
[2020-02-28 05:24] LABS: BASOPHILS % (AUTO) 1 % (0-10); EOSINOPHILS # (AUTO) 0.4 10^3/uL (0.0-0.3); EOSINOPHILS % (AUTO) 7 % (0-10); HEMATOCRIT 36 % (35-52); HEMOGLOBIN 10.9 g/dL (11.5-16.0); LYMPHOCYTES # (AUTO) 1.2 10^3/uL (1.0-4.0); LYMPHOCYTES % (AUTO) 21 % (12-44); MEAN CORPUSCULAR HEMOGLOBIN 30 pg (25-34); MEAN CORPUSCULAR HGB CONC 30 g/dL (32-36); MEAN CORPUSCULAR VOLUME 98 fL (80-99); MEAN PLATELET VOLUME 11.3 fL (9.0-12.2); MONOCYTES # (AUTO) 0.4 10^3/uL (0.0-1.0); MONOCYTES % (AUTO) 8 % (0-12); NEUTROPHILS # (AUTO) 3.5 10^3/uL (1.8-7.8); NEUTROPHILS % (AUTO) 63 % (42-75); PLATELET COUNT 159 10^3/uL (130-400); WHITE BLOOD COUNT 5.5 10^3/uL (4.3-11.0)
[2020-02-28 05:42] LABS: ALBUMIN 3.3 GM/DL (3.2-4.5); CHLORIDE 109 MMOL/L (98-107); POTASSIUM 4.5 MMOL/L (3.6-5.0); SODIUM 141 MMOL/L (135-145)
[2020-02-28 05:43] LABS: CALCIUM 9.5 MG/DL (8.5-10.1)
[2020-02-28 05:44] LABS: GLUCOSE 87 MG/DL (70-105)
[2020-02-28 05:45] LABS: TOTAL PROTEIN 5.6 GM/DL (6.4-8.2)
[2020-02-28 05:46] LABS: BILIRUBIN,TOTAL 0.3 MG/DL (0.1-1.0); CARBON DIOXIDE 24 MMOL/L (21-32)
[2020-02-28 05:48] VITALS: BP 160/74
[2020-02-28 05:48] LABS: ALKALINE PHOSPHATASE 26 U/L (40-136); CREATININE SERUM 0.72 MG/DL (0.60-1.30); GFR ESTIMATED > 60
[2020-02-28 05:49] LABS: BUN/CREATININE RATIO 17
[2020-02-28 05:51] LABS: ALANINE AMINOTRANSFERASE < 6 U/L (0-55)
--- NOTE | 2020-02-28 05:55 | PM&R Progress Note ---
Subjective HPI/CC On Admission Date Seen by Provider: Feb 28, 2020 Time Seen by Provider: 08:30 Subjective/Events-last exam 02/28/20: Bowels moved this morning Hgb 10.9 Practicing the ramp now 02/27/20: Very somatic Cough at times No major issues No pain 02/26/20: 1L/min Stomach issues at times Very somatic and anxious Right knee improved 02/25/20: Dramatic progress now since right knee pain improved since Dr Dent injected right knee O2 maintained No new issues 02/24/20: Right knee injection has worked wonders BM yesterday Improved overall O2 maintained 02/23/20: Spoke to Dr. Dent and he performed injection of steroids on the right knee Knee had popped an caused a lot more pain Bowels moved yesterday Not really using the sit to stand anymore 02/22/20: Progressing very well Using still fti-jc-bewia Weaning oxygen but she does desat during activity Team meeting tomorrow regarding disposition 02/21/20: Pt doing pretty well Bowels moved yesterday Oxygen remains at 1 liters Overall having some significant issues and continues to work with the sit to stand to try to be able to ambulate and return to independent living with her and her son helping out Will try to do everything we can to make that happen for her 02/20/20: Rash better Working with the site to stand well NHP could still be required until she is able to walk and do more for herself at home Her is disabled himself 02/19/20: Participation with therapy going well No pain reported except right knee Likely will need NHP 02/18/20: Rash improved with cream No new pain reported Right knee pain limits her activity May need NH placement 02/17/20: Monitor ambulation ability Sit to stand Rash on back 02/16/20: Family training today with and son Desats quickly Very anxious at times Will need to evaluate the next step in her care after family education 02/15/20: Sit to stand is very helpful Family education tomorrow with to see if he can manage the sit to stand May not be an option to go home 02/14/20: Pain pill will be given at 6 am to help therapy Hgb good at 9.7 Overall looks pretty good Much improved 02/13/20: Stool softener will be changed to prn Imodium prn Today is 50st anniversary 02/12/20: Participating in therapy Sit to stand Monitor right knee pain 02/11/20: Sit to stand working well for her Weakness improved Xanax helps her Patch and Voltaren helps her right knee 02/10/20: Had an ill episode earlier today Labs and c diff no acute issues Now resolved Doing well currently 02/09/20: NO issues Uses sit to stand well Very weak 02/08/20: Using sit to stand and doing very well Bowels moved today A lot of pain issues Requires a lot of care 02/07/20: Room air maintained O2 sat but with the minimal exertion she goes down into the 80 percent Discontinue Colestid Overall feels like she is doing much better Able to use the sit to stand pretty well 02/06/20: Has multiple little complaints DC PICC since it simply did not function properly DC Venofer O2 on 1L/min 02/05/20: Tearful at times Right knee pain is terrible at times Mobic will be restarted along with other home meds that have now been reviewed 02/04/20: Using sit to stand very well Heels are red so managing that O2 on/off 02/03/20: Oxycodone and Xanax ordered APAP Skateboard Standing with assist Memory loss noted Less edema right knee BM 02/02: Pt doing pretty well Participating in therapy Very motivated to improve Maintained on O2 2 liters 02/01/20: Right knee pain continues but considering the risk for complications from steroid injection after Covid, she will be managing Overall doing pretty well on 2 L of Oxygen Will replace Picc line since it was placed in the arm where she has had her previous mastectomy 01/31/20: Dr. Dent graciously agreed to see her for right knee pain and will initiate an injection Hgb 9.1 so midline will be placed with iron infusions 2 L of oxygen maintained After rounds Dr Dent updated me on the fact that no injection initiated due to high risk following COVID 01/30/20: Right knee pain continues Will reach out to Dr Dent tomorrow Tapazole restarted Midline needed for iron infusions Severe right knee pain 10/10 today so adjusted her pain meds and xray noted severe OA Dr Scott usually gives her a right knee injections every 3 months and she is overdue I will try to have ortho give pain injection Friday Tapazole not on her list and she has Graves disease she states O2 at 80% so will maintain 2L/min O2 Checking iron level since hgb 9.1 Adding TSH FT4 to labs BM today loose Review of Systems General: Fatigue, Malaise Neurological: Weakness, Incoordination Objective Exam Vital Signs Vital Signs Date Time Temp Pulse Resp B/P (MAP) Pulse Ox O2 Delivery O2 Flow Rate FiO2 02/28/20 17:20 36.8 91 16 147/70 (95) 96 Nasal Cannula 1.00 Capillary Refill : Less Than 3 Seconds General Appearance: No Apparent Distress, WD/WN, Chronically ill HEENT: PERRL/EOMI, Normal ENT Inspection, Pharynx Normal Neck: Full Range of Motion, Normal Inspection, Non Tender, Supple, Carotid Bruit Respiratory: Chest Non Tender, Lungs Clear, No Accessory Muscle Use, No Respiratory Distress, Decreased Breath Sounds Cardiovascular: Regular Rate, Rhythm, No Edema, No Gallop, No JVD, No Murmur, Normal Peripheral Pulses Gastrointestinal: Normal Bowel Sounds, No Organomegaly, No Pulsatile Mass, Non Tender, Soft Back: Normal Inspection, No CVA Tenderness, No Vertebral Tenderness Extremity: Normal Capillary Refill, Normal Inspection, Normal Range of Motion, Non Tender, No Calf Tenderness, No Pedal Edema Neurologic/Psychiatric: Alert, Oriented x3, Normal Mood/Affect, technician plant and maintenance II-XII Norm as Tested, Motor Weakness (3/5 lower extremities, 4/5 upper) Skin: Normal Color, Warm/Dry Lymphatic: No Adenopathy Results/Procedures Lab Laboratory Tests 02/28/20 04:30 02/28/20 05:10 Patient resulted labs reviewed. FIM Transfers Therapy Code Descriptions/Definitions Functional [place] Measure: 0=Not Assessed/NA 4=Minimal Assistance 1=Total Assistance 5=Supervision or Setup 2=Maximal Assistance 6=Modified [place] 3=Moderate Assistance 7=Complete IndependenceSCALE: Activities may be completed with or without assistive devices. 1-Kpxsgdbjxl-eeslhub completes the activity by him/herself with no assistance from a helper. 5-Set-up or Clean-up Assistance-helper sets up or cleans up; patient completes activity. [place] assists only prior to or following the activity. 4-Supervision or Touching Assistance-helper provides verbal cues and/or touching/steadying and/or contact guard assistance as patient completes activity. Assistance may be provided throughout the activity or intermittently. 3-Partial/Moderate Assistance-helper does LESS THAN HALF the effort. [place] lifts, holds or supports trunk or limbs, but provides less than half the effort. 2-Substantial/Maximal Assistance-helper does MORE THAN HALF the effort. [place] lifts or holds trunk or limbs and provides more than half the effort. 4-Nkflhdbmm-fsndfd does ALL the effort. Patient does none of the effort to c omplete the activity. Or, the assistance of 2 or more helpers is required for the patient to complete the activity. If activity was not attempted, code reason: 7-Patient Refused. 9-Not Applicable-not attempted and the patient did not perform the activity before the current illness, exacerbation or injury. 10-Not Attempted due to Environmental Limitations-(lack of equipment, weather restraints, etc.). 88-Not Attempted due to Medical Conditions or Safety Concerns. Roll Left to Right (QC): 6 Sit to Lying (QC): 6 Sit to Stand (QC): 4 Chair/Eyr-ah-Ienyn Xfer(QC): 4 Car Transfer (QC): 1 Gait Training Does the Patient Walk?: Yes Distance: 30' x3 Walk 10 feet (QC): 4 Walk 50 ft with 2 Turns(QC): 4 Walk 150 ft (QC): 88 Walking 10ft/uneven surface-QC: 88 Gait Persons Needed: 1 Gait Assistive Device: FWW Wheelchair Training Does the Pt Use a Wheelchair?: Yes Distance: 50'x2 Wheel 50 ft with 2 turns (QC): 5 Wheel 150 ft (QC): 5 Type of Wheelchair: Manual Stair Training 1 Step (curb) (QC): 88 4 Steps (QC): 88 12 Steps (QC): 88 Balance Picking up an Object (QC): 88 ADL-Treatment Eating (QC): 6 Oral Hygiene (QC): 6 Bathing Location: L Arm, R Arm, L Upper Leg, R Upper Leg, L Lower Leg (including foot), R Lower Leg (including foot), Chest, Abdomen, Buttocks, Perineal Area Shower/Bathe Self (QC): 6 Upper Body Dressing (QC): 5 Lower Body Dressing (QC): 4 On/Off Footwear (QC): 3 Toileting Hygiene (QC): 4 Toilet Transfer (QC): 4 Assessment/Plan Assessment and Plan Assess & Plan/Chief Complaint Assessment: Critical illness debility from COVID-19 dx 12/11/19 OA h/o breast cancer Allergic rhinitis HTN GERD Depression Lung nodules [facility] 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 since senior living stable Grave's disease Anxiety Severe right knee pain from OA chronic Plan: IRF protocol Wean O2 Pain meds BM regimen 01/29/20: Restart Tapazole 5mg daily Knee injection by ortho will be pursued tomorrow O2 01/30/20: Right knee injection will be requested from Dr Dent Pain meds Tapazole O2 01/31/20: Knee injection not performed due to COVID related risk Monitor O2 Midline and Venofer 02/01/20: Monitor closely O2 wean IRF protocol 02/01/30: Monitor O2 Aggressive therapy 02/03/20: Stood with assist and parallel bars today Improved status IV Venofer after PICC changed 02/04/20: Monitor O2 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 02/05/20: O2 Mobic Home meds 02/06/20: DC PICC since it simply did not function properly O2 02/07/20: Monitor closely O2 wean Sit to stand 02/08/20: Participation good Monitor pain 02/09/20: Sit to stand Continue therapy 02/10/20: Labs reviewed Monitor illness closely 02/11/20: Monitor closely Pain control right knee 02/12/20: Monitor right knee pain O2 Increase activity 02/13/20: Imodium prn Sit to stand Right knee pain 02/14/20: Monitor closely Monitor pain 02/15/20: Family education with sit to stand to see if home is an option 02/17/20: Monitor ambulation Rash treatment 02/18/20: Continue treatment O2 wean 02/19/20: Monitor O2 Pain management 02/20/20: Check labs in am Monitor BP 02/21/20: Labs reviewed Improved status Hemoglobin normal now 02/22/20/: Monitor O2 Increase ambulation 02/23/20: RIght knee injection, appreciate Dr Dent Monitor ambulation DC late next week 02/24/20: Improved knee pain will enable her to ambulate better Home late next week 02/25/20: Dramatic improvement Ambulate 02/26/20: Monitor BP Monitor pain 02/27/20: DC Friday Patient tends to be somatic 02/28/20: DC Friday Monitor closely (1) Myopathy (2) COVID-19 (3) GERD (gastroesophageal reflux disease) (4) Hypoxia (5) HX: breast cancer (6) Anxiety (7) Depression JARRELL HURD DO Feb 28, 2020 05:55
--- NOTE | 2020-02-28 08:54 | Physical Therapy Daily Note ---
PT Daily Note-Current Subjective Pt. agrees to Rx but resistive at first when this TECHNOLOGY SALES CONSULTANT explained that we would be trialing w/c and gait on ramp as well as up down small threshhold type step. Pt. c/o her right knee is painful this morning . Pt. encouraged to press on if she could as she will need to at home until she can get TKR Pain Numeric Pain Scale: 5-Moderate Pain Location: Right Location Body Site: Knee Pain Description: Ache Mental Status Patient Orientation: Person, Place, Time, Situation Attachments: Oxygen (1.5L) pt. needs reminders of every sequence she has been taought over and over on sit to stand , TRFs to toilet and wt bearing during gait and w/c management. Transfers SCALE: Activities may be completed with or without assistive devices. 5-Aszeenmjgh-iosbhzb completes the activity by him/herself with no assistance from a helper. 5-Set-up or Clean-up Assistance-helper sets up or cleans up; patient completes activity. [place] assists only prior to or following the activity. 4-Supervision or Touching Assistance-helper provides verbal cues and/or touching/steadying and/or contact guard assistance as patient completes activity. Assistance may be provided throughout the activity or intermittently. 3-Partial/Moderate Assistance-helper does LESS THAN HALF the effort. [place] lifts, holds or supports trunk or limbs, but provides less than half the effort. 2-Substantial/Maximal Assistance-helper does MORE THAN HALF the effort. [place] lifts or holds trunk or limbs and provides more than half the effort. 5-Owdtfczey-nllzep does ALL the effort. Patient does none of the effort to complete the activity. Or, the assistance of 2 or more helpers is required for the patient to complete the activity. If activity was not attempted, code reason: 7-Patient Refused. 9-Not Applicable-not attempted and the patient did not perform the activity before the current illness, exacerbation or injury. 10-Not Attempted due to Environmental Limitations-(lack of equipment, weather restraints, etc.). 88-Not Attempted due to Medical Conditions or Safety Concerns. Sit to Stand (QC): 4 Chair/Dwq-lp-Phere Xfer(QC): 5 Toilet Transfer (QC): 4 pt. needs only CGA and instruction/ reminder cues for sequence and safety Weight Bearing Full Weight Bearing Full Weight Bearing Gait Training Does the Patient Walk?: Yes Walk 10 feet (QC): 4 Gait Persons Needed: 1 Gait Assistive Device: FWW pt. ambulated on gentle graded ramp 25 ft up , 25 ft down with w/c close behind and a few cues, fatigued and some dyspnea noted Wheelchair Training Does the Pt Use a Wheelchair?: Yes Wheel 50 ft with 2 turns (QC): 5 Type of Wheelchair: Manual pt. managed w/c up down gentle ramp approx 60 ft with cues only for controlling speed etc. Stair Training Stair Training: Handrails/: uses walker #of Steps: 1 1 Step (curb) (QC): 3 Stairs: Pattern: Step to small oink step to simulate threshhold with min to CGA and sequence and safety instruction with good outcome. Treatments PT OT co Rx for bathroom TRF ADLs as well as w/c and gait on ramp, OT instructing UE and trunk efficiency andPT on LE and gait Assessment Current Status: Good Progress PT Short Term Goals Short Term Goals Time Frame: Feb 04, 2020 Roll Left & Right: 4 Sit to lyin Lying to sitting on side of be: 3 Sit to stand: 3 Chair/awp-wp-hwvnr transfer: 3 Walk 10 feet: 3 PT Computer Aided Design Technician Goals Half-Way Goals PT Half-Way Goals Time Frame: Feb 18, 2020 Roll Left & Right (QC): 6 Sit to Lying (QC): 4 Lying-Sitting on Side/Bed(QC): 4 Sit to Stand (QC): 3 ([place]) Chair/Rcn-wr-Qfxek Xfer(QC): 3 ([place]hel[place]) Toilet Transfer (QC): 3 ([place]helby) Car Transfer (QC): 3 ([place]hel[place]) Does the Patient Walk: No and Walking Goal IS indicated Walk 10 feet (QC): 3 Walk 50ft with 2 Turns (QC): 3 Walk 150 ft (QC): 88 Walking 10ft on Uneven Surface: 88 1 Step (curb) (QC): 88 4 Steps (QC): 88 12 Steps (QC): 88 Picking up an Object (QC): 88 Wheel 50 feet with 2 turns (QC: 6 Wheel 150 feet: 6 PT Plan Treatment/Plan Treatment Plan: Continue Plan of Care Treatment Plan: Bed Mobility, Education, Functional Activity Renny, Functional Strength, Group Therapy, Gait, Safety, Therapeutic Exercise, Transfers Treatment Duration: Feb 18, 2020 Frequency: At least 5 of 7 days/Wk (IRF) Estimated Hrs Per Day: 1.5 hours per day Patient and/or Family Agrees t: Yes Safety Risks/Education Patient Education: Gait Training, Transfer Techniques, Steps, Correct Positioning, W/C Management, Disease Process, Safety Issues Teaching Recipient: Patient Teaching Methods: Demonstration, Discussion Response to Teaching: Verbalize Understanding, Return Demonstration, Reinforcement Needed Time/GCodes Time In: 800 Time Out: 845 Total Billed Treatment Time: 45 Total Billed Treatment 1,w/c15m,GT15m,FA15m KENZIE MORE TECHNOLOGY SALES CONSULTANT Feb 28, 2020 08:54
--- NOTE | 2020-02-28 08:59 | Occupational Ther Daily Note ---
OT Current Status-Daily Note Subjective Pt alert, sitting in recliner. Pt agrees to therapy. Pt c/o R knee pain, does not rate. Mental Status/Objective Patient Orientation: Person, Place, Time, Situation Attachments: Oxygen (1L) ADL-Treatment Pt declines shower, agrees to sponge bath. After set up, pt able to complete all areas of bathing except buttocks in sitting. Using long handle sponge to cleanse feet. Pt stood with FWW with SBA to cleanse buttocks/rosibel area. After set up, pt able to don/doff upper body clothing. Pt able to thread lower body clothing over feet then stood up with SBA to hike pants with B hands and maintain own balance. Pt then transferred to w/c with SBA and propelled into bathroom by self to complete oral care and grooming independently. At end of therapy, pt transfers to toilet from w/c using grabbars with CGA Manipulated clothing in standing with SBA and completed hygiene sitting on toilet by self. Pt able to complete SPT to bed with SBA and go from EOB to supine independently. Using bed rails and feet, pt able to scoot self up in bed with effort. After therapy, pt lying in bed with call light/phone in reach. All needs met in room. Therapy Code Descriptions/Definitions Functional [place] Measure: 0=Not Assessed/NA 4=Minimal Assistance 1=Total Assistance 5=Supervision or Setup 2=Maximal Assistance 6=Modified [place] 3=Moderate Assistance 7=Complete IndependenceSCALE: Activities may be completed with or without assistive devices. 1-Evlpluldda-unilrze completes the activity by him/herself with no assistance fr om a helper. 5-Set-up or Clean-up Assistance-helper sets up or cleans up; patient completes activity. [place] assists only prior to or following the activity. 4-Supervision or Touching Assistance-helper provides verbal cues and/or touching/steadying and/or contact guard assistance as patient completes activity. Assistance may be provided throughout the activity or intermittently. 3-Partial/Moderate Assistance-helper does LESS THAN HALF the effort. [place] lifts, holds or supports trunk or limbs, but provides less than half the effort. 2-Substantial/Maximal Assistance-helper does MORE THAN HALF the effort. [place] lifts or holds trunk or limbs and provides more than half the effort. 8-Oegqeddiw-lkxauv does ALL the effort. Patient does none of the effort to complete the activity. Or, the assistance of 2 or more helpers is required for the patient to complete the activity. If activity was not attempted, code reason: 7-Patient Refused. 9-Not Applicable-not attempted and the patient did not perform the activity before the current illness, exacerbation or injury. 10-Not Attempted due to Environmental Limitations-(lack of equipment, weather restraints, etc.). 88-Not Attempted due to Medical Conditions or Safety Concerns. Other Treatment Co-treat with PT ([id number]), skills of 2 clinicians required for skilled care and instruction due to increased L knee pain, risk of falls and decreased activity tolerance. PT focusing on ambulation, transfers and mobility while OT focusing on ADLs and hand placement during mobility/transfers. Pt completed bed mobility on therapy mat with SBA. Pt is progressing with mobility, transfers and ambulation today. See PT notes for ambulation. 2nd session([id number]), Pt working on rolling side to side to position self in sidelying. Pt require verbal/physical cues for the sequence of rolling correctly. Pt completed 5x's each side and continues to require assistance and cues to complete. With HOB slightly raised, pt able to push up to sitting EOB from sidelying. SBA using FWW to transfer to toilet, SBA to manipulate clothing and independent with hygiene. SBA for pt to ambulate from BSC to recliner using FWW. After session, pt sitting in recliner with call light/phone in reach. All needs met in room. OT Short Term Goals Short Term Goals Time Frame: Feb 09, 2020 Toileting hygiene: 3 Lower body dressin Putting on/taking off footwear: 3 OT Mcfp Goals Telex Operator Goals Time Frame: Mar 10, 2020 Eating (QC): 6 Oral Hygiene (QC): 6 Toileting Hygiene (QC): 6 Shower/Bathe Self (QC): 6 Upper Body Dressing (QC): 6 Lower Body Dressing (QC): 6 On/Off Footwear (QC): 6 Additional Goals: 1-Demonstrate ADL Tasks, 2-Verbalize Understanding, 3- ImproveStrength/Renny 1=Demonstrate adherence to instructed precautions during ADL tasks. 2=Patient will verbalize/demonstrate understanding of assistive devices/modifications for ADL. 3=Patient will improve strength/tolerance for activity to enable patient to perform ADL's. OT Education/Plan Problem List/Assessment Assessment: Decreased Activ Tolerance, Impaired Self-Care Skills Discharge Recommendations Plan/Recommendations: Continue POC Treatment Plan/Plan of Care Patient would benefit from OT for education, treatment and training to promote independence in ADL's, mobility, safety and/or upper extremity function for ADL's. Plan of Care: ADL Retraining, Functional Mobility, Group Exercise/Act as Ind, UE Funct Exercise/Act Treatment Duration: Feb 18, 2020 Frequency: At least 5 of 7 days/Wk (IRF) Estimated Hrs Per Day: 1.5 hours per day Agreement: Yes Rehab Potential: Fair Time/GCodes Start Time: 07:30 ([id number]) Stop Time: 11:30 ([id number]) Total Time Billed (hr/min): 105 Billed Treatment Time 2 visits-ADL 3 (45 min) FA 4 (60 min) co-treat with PT (45 min) [id number], individual (60 min) [id number], [id number], [id number] DENI GRISSOM Feb 28, 2020 08:59
[2020-02-28] MEDS: VALSARTAN 160 MG (DIOVAN) TABLET PO SCH (10:23)
[2020-02-28] MEDS: LACTOBACILLUS ACIDOPHILUS (PROBIOTIC) CAPSULE PO SCH ×2 (10:23→21:38)
[2020-02-28] MEDS: ENOXAPARIN 40 MG/0.4 ML (LOVENOX) SYR SC SCH (10:24)
[2020-02-28] MEDS: ALPRAZolam 0.25 MG (XANAX) TAB PO SCH ×2 (10:24→21:38)
[2020-02-28] MEDS: LIDOCAINE 4% (SALONPAS) PATCH TP SCH ×2 (10:24→21:37)
[2020-02-28] MEDS: ASCORBIC ACID (VIT C) 500 MG TABLET PO SCH (10:25)
[2020-02-28] MEDS: PANTOPRAZOLE 40 MG (PROTONIX) TAB PO SCH ×2 (10:25→21:39)
[2020-02-28] MEDS: METHIMAZOLE 5 MG PO SCH (10:25)
[2020-02-28] MEDS: NIFEdipine ER 30 MG (PROCARDIA XL) TAB PO SCH (10:25)
[2020-02-28] MEDS: CYANOCOBALAMIN 1,000 MCG (VITAMIN B-12) TABLET PO SCH (10:25)
[2020-02-28] MEDS: SERTRALINE 100 MG (ZOLOFT) TAB PO SCH (10:25)
[2020-02-28] MEDS: amLODIPine 5 MG (NORVASC) TAB PO SCH (10:25)
[2020-02-28] MEDS: VITAMIN D3 125 MCG (5,000 UNITS) CAPSULE PO SCH (10:25)
[2020-02-28] MEDS: GABAPENTIN 300 MG (NEURONTIN) CAP PO SCH ×3 (10:25→21:39)
[2020-02-28] MEDS: MELOXICAM 7.5 MG (MOBIC) TABLET PO SCH (10:25)
[2020-02-28] MEDS: SILDENAFIL 20 MG (REVATIO) TAB NON-FORMULARY PO SCH ×2 (10:26→21:40)
[2020-02-28] MEDS: MICONAZOLE 2% POWDER (DESENEX AF) 90 GM TOP SCH ×2 (10:28→21:40)
[2020-02-28] MEDS: DICLOFENAC 1% GEL 100 GM (VOLTAREN) TUBE TOP SCH ×4 (10:28→21:40)
[2020-02-28] MEDS: ACETAMINOPHEN 650 MG PO SCH ×3 (10:29→21:37)
[2020-02-28 10:35] VITALS: BP 161/70
--- NOTE | 2020-02-28 13:28 | Speech Therapy Daily Note ---
Speech Daily Progress Note Subjective Date Seen by Provider: Feb 28, 2020 Time Seen by Provider: 00:30 Patient was resting in her bed following her PT session. She states she did well walking on the ramp on the first floor today but it wore her out. Objective Patient completed a series of memory tasks related to the equipment she will be responsible for ordering prior to her return home with 90% given minimal cuing. Assessment Assessment Current Status: Good Progress Treatment Plan Continue Plan of Care Speech Short Term Goals Short Term Goals Short Term Goals 1) Patient will follow/recall multi step directions for wheelchair mobility without cues at 90% or greater. 2) Patient will recall sequencing for daily activities without cues at 90% or greater. Speech Plating Technician Goals Senior Care Goals Patient will demonstrate safety awareness with all daily activities and processes. Speech-Plan Patient/Family Goals Patient/Family Goals: Patient is scheduled to return home with family support on 03/03/2020. Treatment Plan Speech Therapy Treatment Plan: Continue Plan of Care Treatment Duration: Mar 03, 2020 Frequency: 4 times per week (Patient will receive ST 4-5x per week) Estimated Hrs Per Day: .5 hour per day Rehab Potential: Fair Barriers to Learning: Patient's recent lengthy serious illness, debility, cognitive deficits, age Pt/Family Agrees to Plan: Yes Safety Risks/Education Teaching Recipient: Patient Teaching Methods: Demonstration, Discussion Response to Teaching: Verbalize Understanding, Return Demonstration Education Topics Provided: Continued safety with transfers, mobility Time Speech Therapy Time In: 10:00 Speech Therapy Time Out: 10:30 Total Billed Time: 30 Billed Treatment Time 1MI[address]IE [address] ST Feb 28, 2020 13:28
--- NOTE | 2020-02-28 13:50 | NUR ---
[facility] DISCHARGE PLANNING Visited with patient this a.m. and she had inquires about discharge planning. After discussion, the following plan is in place for family to proceed to purchase: Bedside Commode Shower Chair FWW (Patient may use her spouse's or may purchase) Cottage Supervisor wrote this on patient's white board as a reminder checklist. DME: Anticipate new home O2, wheelchair. These will be ordered through a PR agency due to patient's residence in [place]. [facility]: Will pursue an agency now for Friday discharge due to recent difficulty in securing one timely or at all due to scheduling/absences/insurances. Continue intermittent discussion for overall discharge planning. Addendum: 02/28/20 at 1500 by DIMITRY LEIJA Began calling [facility] for availability. [facility], [facility], booked out until 03/11/20 Referral completed with [facility], await their review and confirmation/denial.
--- NOTE | 2020-02-28 16:51 | NUR ---
"RD ASSESSMENT PMHx: pneumonia; COVID-19; hypercholesterolemia; GERD; hypothyroidism; CA(breast) PT INTERACTION: Pt was awake and pleasant during nutrition follow-up. Pt states she has been eating okay since last assessment. Note avg PO intake >75% x4d, per chart review. Pt states some issues with diarrhea since last assessment. Note last BM was 02/27, and pt currently on bowel regimen of senna PRN, colace PRN, and bisacodyl PRN, per chart review. Est. kcal needs: 0920-1718 kcal | 15-20 kcal/kg Est. Pro needs: 79-95 g Pro | 0.8-1.0 g Pro/kg PES STATEMENT: Given current appetite, no nutrition diagnosis at this time (NO-1.1). INTERVENTION: Continue with current diet order of Regular diet. Will continue to follow and reassess as pt needs, intake, and status change. Patricia LIMA, MS RD LD [phone] cell"
[2020-02-28 17:20] VITALS: BP 147/70
[2020-02-28] MEDS: PRAMIPEXOLE 0.125 MG (MIRAPEX) TABLET PO SCH (21:38)
[2020-02-28] MEDS: SERTRALINE 50 MG (ZOLOFT) TABLET PO SCH (21:38)
[2020-02-28] MEDS: MELATONIN 3 MG TABLET PO PRN (21:39)
[2020-02-29 06:10] VITALS: BP 145/65
--- NOTE | 2020-02-29 07:51 | Occupational Ther Daily Note ---
OT Current Status-Daily Note Subjective Pt alert, sitting in recliner. Pt stated that her R knee woke her up at 2AM, nrsg brought pain meds. Pt agrees to therapy. Mental Status/Objective Patient Orientation: Person, Place, Time, Situation Attachments: Oxygen (1L) ADL-Treatment Pt declines shower, agrees to sponge bath. After set up, pt able to complete all areas of bathing except buttocks in sitting. Pt able to complete figure 4 position to wash/dry feet. Pt stood with FWW with SBA to cleanse buttocks/rosibel area. After set up, pt able to don/doff upper body clothing. Pt able to thread lower body clothing over feet then stood up with SBA to hike pants with B hands and maintain own balance. Pt then transferred to w/c with SBA and propelled into bathroom by self to complete oral care and grooming independently. Therapy Code Descriptions/Definitions Functional [place] Measure: 0=Not Assessed/NA 4=Minimal Assistance 1=Total Assistance 5=Supervision or Setup 2=Maximal Assistance 6=Modified [place] 3=Moderate Assistance 7=Complete IndependenceSCALE: Activities may be completed with or without assistive devices. 8-Obvjrqcfyl-nzhlxdb completes the activity by him/herself with no assistance from a helper. 5-Set-up or Clean-up Assistance-helper sets up or cleans up; patient completes activity. [place] assists only prior to or following the activity. 4-Supervision or Touching Assistance-helper provides verbal cues and/or touching/steadying and/or contact guard assistance as patient completes activity. Assistance may be provided throughout the activity or intermittently. 3-Partial/Moderate Assistance-helper does LESS THAN HALF the effort. [place] lifts, holds or supports trunk or limbs, but provides less than half the effort. 2-Substantial/Maximal Assistance-helper does MORE THAN HALF the effort. [place] lifts or holds trunk or limbs and provides more than half the effort. 2-Duijfzhyf-ymqfqz does ALL the effort. Patient does none of the effort to complete the activity. Or, the assistance of 2 or more helpers is required for the patient to complete the activity. If activity was not attempted, code reason: 7-Patient Refused. 9-Not Applicable-not attempted and the patient did not perform the activity before the current illness, exacerbation or injury. 10-Not Attempted due to Environmental Limitations-(lack of equipment, weather restraints, etc.). 88-Not Attempted due to Medical Conditions or Safety Concerns. Eating (QC): 6 (Using clinical judgement, pt able to complete independently.) Oral Hygiene (QC): 6 (Sitting at sink, completes independently.) Shower/Bathe Self (QC): 5 Upper Body Dressing (QC): 5 Lower Body Dressing (QC): 4 On/Off Footwear: 5 Toileting Hygiene (QC): 4 Toilet Transfer (QC): 4 Other Treatment Pt propelled to therapy gym and completed arm bike for 15 min with minimal resistance to increase B UE strength and activity tolerance for daily functional tasks. Pt able to keep oxygen at 90% throughout with deep breathing. At end of session, pt sitting in recliner with feet elevated. Call light/phone in reach. All needs met in room. OT Short Term Goals Short Term Goals Time Frame: Feb 09, 2020 Toileting hygiene: 3 Lower body dressin Putting on/taking off footwear: 3 OT Usp Goals Usp Goals Time Frame: Mar 10, 2020 Eating (QC): 6 Oral Hygiene (QC): 6 Toileting Hygiene (QC): 6 Shower/Bathe Self (QC): 6 Upper Body Dressing (QC): 6 Lower Body Dressing (QC): 6 On/Off Footwear (QC): 6 Additional Goals: 1-Demonstrate ADL Tasks, 2-Verbalize Understanding, 3- ImproveStrength/Renny 1=Demonstrate adherence to instructed precautions during ADL tasks. 2=Patient will verbalize/demonstrate understanding of assistive devices/modifications for ADL. 3=Patient will improve strength/tolerance for activity to enable patient to perform ADL's. OT Education/Plan Problem List/Assessment Assessment: Decreased Activ Tolerance, Impaired Funct Balance, Impaired Self- Care Skills Discharge Recommendations Plan/Recommendations: Continue POC Treatment Plan/Plan of Care Patient would benefit from OT for education, treatment and training to promote independence in ADL's, mobility, safety and/or upper extremity function for ADL's. Plan of Care: ADL Retraining, Functional Mobility, Group Exercise/Act as Ind, UE Funct Exercise/Act Treatment Duration: Feb 18, 2020 Frequency: At least 5 of 7 days/Wk (IRF) Estimated Hrs Per Day: 1.5 hours per day Agreement: Yes Rehab Potential: Fair Time/GCodes Start Time: 07:30 Stop Time: 09:00 Total Time Billed (hr/min): 90 Billed Treatment Time 1 visit-ADL 5 (75 min), EX 1 (15 min) DENI GRISSOM Feb 29, 2020 07:51
--- NOTE | 2020-02-29 08:37 | PM&R Progress Note ---
Subjective HPI/CC On Admission Date Seen by Provider: Feb 29, 2020 Time Seen by Provider: 08:15 Subjective/Events-last exam 02/29/20: Changing Tylenol to obtain dosing less than 4 grams a day so changing Tylenol Arthritis to BID instead of TID Pain medication will likely be required Overall doing pretty well but needs constant reassurance 02/28/20: Bowels moved this morning Hgb 10.9 Practicing the ramp now 02/27/20: Very somatic Cough at times No major issues No pain 02/26/20: 1L/min Stomach issues at times Very somatic and anxious Right knee improved 02/25/20: Dramatic progress now since right knee pain improved since Dr Dent injected right knee O2 maintained No new issues 02/24/20: Right knee injection has worked wonders BM yesterday Improved overall O2 maintained 02/23/20: Spoke to Dr. Dent and he performed injection of steroids on the right knee Knee had popped an caused a lot more pain Bowels moved yesterday Not really using the sit to stand anymore 02/22/20: Progressing very well Using still shs-wf-syjen Weaning oxygen but she does desat during activity Team meeting tomorrow regarding disposition 02/21/20: Pt doing pretty well Bowels moved yesterday Oxygen remains at 1 liters Overall having some significant issues and continues to work with the sit to stand to try to be able to ambulate and return to independent living with her and her son helping out Will try to do everything we can to make that happen for her 02/20/20: Rash better Working with the site to stand well NHP could still be required until she is able to walk and do more for herself at home Her is disabled himself 02/19/20: Participation with therapy going well No pain reported except right knee Likely will need NHP 02/18/20: Rash improved with cream No new pain reported Right knee pain limits her activity May need NH placement 02/17/20: Monitor ambulation ability Sit to stand Rash on back 02/16/20: Family training today with and son Desats quickly Very anxious at times Will need to evaluate the next step in her care after family education 02/15/20: Sit to stand is very helpful Family education tomorrow with to see if he can manage the sit to stand May not be an option to go home 02/14/20: Pain pill will be given at 6 am to help therapy Hgb good at 9.7 Overall looks pretty good Much improved 02/13/20: Stool softener will be changed to prn Imodium prn Today is 50st anniversary 02/12/20: Participating in therapy Sit to stand Monitor right knee pain 02/11/20: Sit to stand working well for her Weakness improved Xanax helps her Patch and Voltaren helps her right knee 02/10/20: Had an ill episode earlier today Labs and c diff no acute issues Now resolved Doing well currently 02/09/20: NO issues Uses sit to stand well Very weak 02/08/20: Using sit to stand and doing very well Bowels moved today A lot of pain issues Requires a lot of care 02/07/20: Room air maintained O2 sat but with the minimal exertion she goes down into the 80 percent Discontinue Colestid Overall feels like she is doing much better Able to use the sit to stand pretty well 02/06/20: Has multiple little complaints DC PICC since it simply did not function properly DC Venofer O2 on 1L/min 02/05/20: Tearful at times Right knee pain is terrible at times Mobic will be restarted along with other home meds that have now been reviewed 02/04/20: Using sit to stand very well Heels are red so managing that O2 on/off 02/03/20: Oxycodone and Xanax ordered APAP Skateboard Standing with assist Memory loss noted Less edema right knee BM 02/02: Pt doing pretty well Participating in therapy Very motivated to improve Maintained on O2 2 liters 02/01/20: Right knee pain continues but considering the risk for complications from steroid injection after Covid, she will be managing Overall doing pretty well on 2 L of Oxygen Will replace Picc line since it was placed in the arm where she has had her previous mastectomy 01/31/20: Dr. Dent graciously agreed to see her for right knee pain and will initiate an injection Hgb 9.1 so midline will be placed with iron infusions 2 L of oxygen maintained After rounds Dr Dent updated me on the fact that no injection initiated due to high risk following COVID 01/30/20: Right knee pain continues Will reach out to Dr Jailene tomorrow Tapazole restarted Midline needed for iron infusions Severe right knee pain 10/10 today so adjusted her pain meds and xray noted severe OA Dr Scott usually gives her a right knee injections every 3 months and she is overdue I will try to have ortho give pain injection Friday Tapazole not on her list and she has Graves disease she states O2 at 80% so will maintain 2L/min O2 Checking iron level since hgb 9.1 Adding TSH FT4 to labs BM today loose Review of Systems General: Fatigue Musculoskeletal: leg pain Objective Exam Vital Signs Vital Signs Date Time Temp Pulse Resp B/P (MAP) Pulse Ox O2 Delivery O2 Flow Rate FiO2 02/29/20 20:30 Nasal Cannula 1.00 02/29/20 16:10 36.7 90 18 164/70 (101) 96 Capillary Refill : Less Than 3 Seconds General Appearance: No Apparent Distress, WD/WN, Chronically ill HEENT: PERRL/EOMI, Normal ENT Inspection, Pharynx Normal Neck: Full Range of Motion, Normal Inspection, Non Tender, Supple, Carotid Bruit Respiratory: Chest Non Tender, Lungs Clear, No Accessory Muscle Use, No Respiratory Distress, Decreased Breath Sounds Cardiovascular: Regular Rate, Rhythm, No Edema, No Gallop, No JVD, No Murmur, Normal Peripheral Pulses Gastrointestinal: Normal Bowel Sounds, No Organomegaly, No Pulsatile Mass, Non Tender, Soft Back: Normal Inspection, No CVA Tenderness, No Vertebral Tenderness Extremity: Normal Capillary Refill, Normal Inspection, Normal Range of Motion, Non Tender, No Calf Tenderness, No Pedal Edema Neurologic/Psychiatric: Alert, Oriented x3, Normal Mood/Affect, yield analyst II-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 FIM Transfers Therapy Code Descriptions/Definitions Functional [place] Measure: 0=Not Assessed/NA 4=Minimal Assistance 1=Total Assistance 5=Supervision or Setup 2=Maximal Assistance 6=Modified [place] 3=Moderate Assistance 7=Complete IndependenceSCALE: Activities may be completed with or without assistive devices. 3-Azzmybsubn-gqqxpxg completes the activity by him/herself with no assistance from a helper. 5-Set-up or Clean-up Assistance-helper sets up or cleans up; patient completes activity. [place] assists only prior to or following the activity. 4-Supervision or Touching Assistance-helper provides verbal cues and/or touching/steadying and/or contact guard assistance as patient completes activity. Assistance may be provided throughout the activity or intermittently. 3-Partial/Moderate Assistance-helper does LESS THAN HALF the effort. [place] lifts, holds or supports trunk or limbs, but provides less than half the effort. 2-Substantial/Maximal Assistance-helper does MORE THAN HALF the effort. [place] lifts or holds trunk or limbs and provides more than half the effort. 8-Ojvamxyou-caxfau does ALL the effort. Patient does none of the effort to complete the activity. Or, the assistance of 2 or more helpers is required for the patient to complete the activity. If activity was not attempted, code reason: 7-Patient Refused. 9-Not Applicable-not attempted and the patient did not perform the activity before the current illness, exacerbation or injury. 10-Not Attempted due to Environmental Limitations-(lack of equipment, weather restraints, etc.). 88-Not Attempted due to Medical Conditions or Safety Concerns. Roll Left to Right (QC): 6 Sit to Lying (QC): 6 Sit to Stand (QC): 4 Chair/Veu-tp-Tlnfm Xfer(QC): 5 Car Transfer (QC): 1 Gait Training Does the Patient Walk?: Yes Distance: 30' x3 Walk 10 feet (QC): 4 Walk 50 ft with 2 Turns(QC): 4 Walk 150 ft (QC): 88 Walking 10ft/uneven surface-QC: 88 Gait Persons Needed: 1 Gait Assistive Device: FWW Wheelchair Training Does the Pt Use a Wheelchair?: Yes Distance: 50'x2 Wheel 50 ft with 2 turns (QC): 5 Wheel 150 ft (QC): 5 Type of Wheelchair: Manual Stair Training Stair Training: Handrails/: uses walker #of Steps: 1 1 Step (curb) (QC): 3 4 Steps (QC): 88 12 Steps (QC): 88 Stairs: Pattern: Step to Balance Picking up an Object (QC): 88 ADL-Treatment Eating (QC): 6 (Using clinical judgement, pt able to complete independently.) Oral Hygiene (QC): 6 (Sitting at sink, completes independently.) Bathing Location: L Arm, R Arm, L Upper Leg, R Upper Leg, L Lower Leg (including foot), R Lower Leg (including foot), Chest, Abdomen, Buttocks, Perineal Area Shower/Bathe Self (QC): 6 Upper Body Dressing (QC): 5 Lower Body Dressing (QC): 4 On/Off Footwear (QC): 3 Toileting Hygiene (QC): 4 Toilet Transfer (QC): 4 Assessment/Plan Assessment and Plan Assess & Plan/Chief Complaint Assessment: Critical illness debility from COVID-19 dx 12/11/19 OA h/o breast cancer Allergic rhinitis HTN GERD Depression Lung nodules [facility] 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 since jail stable Grave's disease Anxiety Severe right knee pain from OA chronic Plan: IRF protocol Wean O2 Pain meds BM regimen 01/29/20: Restart Tapazole 5mg daily Knee injection by ortho will be pursued tomorrow O2 01/30/20: Right knee injection will be requested from Dr Dent Pain meds Tapazole O2 01/31/20: Knee injection not performed due to COVID related risk Monitor O2 Midline and Venofer 02/01/20: Monitor closely O2 wean IRF protocol 02/01/30: Monitor O2 Aggressive therapy 02/03/20: Stood with assist and parallel bars today Improved status IV Venofer after PICC changed 02/04/20: Monitor O2 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 02/05/20: O2 Mobic Home meds 02/06/20: DC PICC since it simply did not function properly O2 02/07/20: Monitor closely O2 wean Sit to stand 02/08/20: Participation good Monitor pain 02/09/20: Sit to stand Continue therapy 02/10/20: Labs reviewed Monitor illness closely 02/11/20: Monitor closely Pain control right knee 02/12/20: Monitor right knee pain O2 Increase activity 02/13/20: Imodium prn Sit to stand Right knee pain 02/14/20: Monitor closely Monitor pain 02/15/20: Family education with sit to stand to see if home is an option 02/17/20: Monitor ambulation Rash treatment 02/18/20: Continue treatment O2 wean 02/19/20: Monitor O2 Pain management 02/20/20: Check labs in am Monitor BP 02/21/20: Labs reviewed Improved status Hemoglobin normal now 02/22/20/: Monitor O2 Increase ambulation 02/23/20: RIght knee injection, appreciate Dr Dent Monitor ambulation DC late next week 02/24/20: Improved knee pain will enable her to ambulate better Home late next week 02/25/20: Dramatic improvement Ambulate 02/26/20: Monitor BP Monitor pain 02/27/20: DC Friday Patient tends to be somatic 02/28/20: DC Friday Monitor closely 02/29/20: DME discussed Monitor closely (1) Myopathy (2) COVID-19 (3) GERD (gastroesophageal reflux disease) (4) Hypoxia (5) HX: breast cancer (6) Anxiety (7) Depression JARRELL HURD DO Feb 29, 2020 08:37
[2020-02-29] MEDS: DICLOFENAC 1% GEL 100 GM (VOLTAREN) TUBE TOP SCH ×4 (09:04→20:46)
[2020-02-29] MEDS: ENOXAPARIN 40 MG/0.4 ML (LOVENOX) SYR SC SCH (09:05)
[2020-02-29] MEDS: MICONAZOLE 2% POWDER (DESENEX AF) 90 GM TOP SCH ×2 (09:05→20:45)
[2020-02-29] MEDS: LIDOCAINE 4% (SALONPAS) PATCH TP SCH ×2 (09:05→20:44)
[2020-02-29] MEDS: ASCORBIC ACID (VIT C) 500 MG TABLET PO SCH (09:06)
[2020-02-29] MEDS: NIFEdipine ER 30 MG (PROCARDIA XL) TAB PO SCH (09:06)
[2020-02-29] MEDS: METHIMAZOLE 5 MG PO SCH (09:06)
[2020-02-29] MEDS: PANTOPRAZOLE 40 MG (PROTONIX) TAB PO SCH ×2 (09:06→20:44)
[2020-02-29] MEDS: SERTRALINE 100 MG (ZOLOFT) TAB PO SCH (09:06)
[2020-02-29] MEDS: MELOXICAM 7.5 MG (MOBIC) TABLET PO SCH (09:06)
[2020-02-29] MEDS: amLODIPine 5 MG (NORVASC) TAB PO SCH (09:06)
[2020-02-29] MEDS: GABAPENTIN 300 MG (NEURONTIN) CAP PO SCH ×3 (09:07→20:43)
[2020-02-29] MEDS: VITAMIN D3 125 MCG (5,000 UNITS) CAPSULE PO SCH (09:07)
[2020-02-29] MEDS: VALSARTAN 160 MG (DIOVAN) TABLET PO SCH (09:07)
[2020-02-29] MEDS: SILDENAFIL 20 MG (REVATIO) TAB NON-FORMULARY PO SCH ×2 (09:07→20:44)
[2020-02-29] MEDS: CYANOCOBALAMIN 1,000 MCG (VITAMIN B-12) TABLET PO SCH (09:07)
[2020-02-29] MEDS: LACTOBACILLUS ACIDOPHILUS (PROBIOTIC) CAPSULE PO SCH ×2 (09:07→20:42)
[2020-02-29] MEDS: ALPRAZolam 0.25 MG (XANAX) TAB PO SCH ×2 (09:07→20:43)
[2020-02-29] MEDS: ACETAMINOPHEN 650 MG PO SCH (09:08)
--- NOTE | 2020-02-29 10:11 | NUR ---
CM/SS DISCHARGE PLANNING Patient updated narrative writer that her son and spouse will pick her up Friday at 1100. Spouse has gotten the BSC and shower chair. Spouse has a new FWW from his one day hospitalization for Covid, which he does not use. Patient will use this new walker adjusted to her height. DME: To be ordered for discharge, wheelchair and anticipate home O2. Will proceed with agency in patient service area who can provide timely. Patient has Medicare so insurance should not impede setup. Patient is counting down, she indicates she has been hospitalized roughly 70 days continuously. [facility]: [facility] has accepted patient to provide RN PT OT, service start date Friday, February 17. Continue activity toward finalization of discharge to home.
--- NOTE | 2020-02-29 11:46 | Speech Therapy Daily Note ---
Speech Daily Progress Note Subjective Date Seen by Provider: Feb 29, 2020 Time Seen by Provider: 00:30 Patient was resting in her recliner when I entered her room. Patient states she had OT but PT was at 11:00. Objective Patient completed memory exercises related to safety in her room and upon her return home with 90% given minimal cuing. Assessment Assessment Current Status: Good Progress Treatment Plan Continue Plan of Care Speech Short Term Goals Short Term Goals Short Term Goals 1) Patient will follow/recall multi step directions for wheelchair mobility without cues at 90% or greater. 2) Patient will recall sequencing for daily activities without cues at 90% or greater. Speech Mcc Goals Mcc Goals Patient will demonstrate safety awareness with all daily activities and proces ses. Speech-Plan Patient/Family Goals Patient/Family Goals: Patient is scheduled to return home on Friday the . Treatment Plan Speech Therapy Treatment Plan: Continue Plan of Care Treatment Duration: Mar 03, 2020 Frequency: 4 times per week (Patient will receive ST 4-5x per week) Estimated Hrs Per Day: .5 hour per day Rehab Potential: Fair Barriers to Learning: Patient's lengthy illness and debility Pt/Family Agrees to Plan: Yes Safety Risks/Education Teaching Recipient: Patient Teaching Methods: Demonstration, Discussion Response to Teaching: Verbalize Understanding, Return Demonstration Education Topics Provided: Contnued safety on the ARU and upon her return home Time Speech Therapy Time In: 10:00 Speech Therapy Time Out: 10:30 Total Billed Time: 30 Billed Treatment Time 1MILLIE BETH[address] ST Feb 29, 2020 11:46
--- NOTE | 2020-02-29 12:08 | Physical Therapy Daily Note ---
PT Daily Note-Current Subjective Pt. agrees to Rx, feels she has made great progress and looking to going home soon. c/o she still has pain in her right "bone on bone knee" that limits her ambulation. Pain Numeric Pain Scale: 4 Location: Right Location Body Site: Knee Pain Description: Ache Mental Status Patient Orientation: Normal For Age Attachments: Oxygen, Other-See Comments (mask) Transfers SCALE: Activities may be completed with or without assistive devices. 7-Rtxqdevzvz-cunywmu completes the activity by him/herself with no assistance from a helper. 5-Set-up or Clean-up Assistance-helper sets up or cleans up; patient completes activity. [place] assists only prior to or following the activity. 4-Supervision or Touching Assistance-helper provides verbal cues and/or touching/steadying and/or contact guard assistance as patient completes activity. Assistance may be provided throughout the activity or intermittently. 3-Partial/Moderate Assistance-helper does LESS THAN HALF the effort. [place] lifts, holds or supports trunk or limbs, but provides less than half the effort. 2-Substantial/Maximal Assistance-helper does MORE THAN HALF the effort. [place] lifts or holds trunk or limbs and provides more than half the effort. 6-Georfpkzh-jnkovl does ALL the effort. Patient does none of the effort to complete the activity. Or, the assistance of 2 or more helpers is required for the patient to complete the activity. If activity was not attempted, code reason: 7-Patient Refused. 9-Not Applicable-not attempted and the patient did not perform the activity before the current illness, exacerbation or injury. 10-Not Attempted due to Environmental Limitations-(lack of equipment, weather restraints, etc.). 88-Not Attempted due to Medical Conditions or Safety Concerns. Roll Left & Right (QC): 6 Sit to Lying (QC): 6 Lying to Sitting/Side of Bed(Q: 6 Sit to Stand (QC): 5 Chair/Bxr-qo-Jwmmv Xfer(QC): 5 Toilet Transfer (QC): 5 Car Transfer (QC): 5 Weight Bearing Full Weight Bearing Full Weight Bearing Gait Training Does the Patient Walk?: Yes Walk 10 feet (QC): 4 Walk 50 ft with 2 Turns(QC): 4 Gait Persons Needed: 1 Gait Assistive Device: FWW CGA and assist for O2 tubing. Pt. desires to come off O2 . Titration was attempted this date with pt. initially at 1.5 L with sats>90%, with O2 at .5 L pt. declined to 86% and O2 was reinstated. Wheelchair Training Does the Pt Use a Wheelchair?: Yes Wheel 50 ft with 2 turns (QC): 5 Wheel 150 ft (QC): 5 Type of Wheelchair: Manual slow moving, takes breaks and needs cuing to manage O2 tubing safely, 50ft x 1, 35ftx2, 15ft x 1 Exercises Supine Ex: Bridging, Ankle pumps, Quad Set, Rolling, Glut sets, Heel Slides, Knee to chest, Scooting, Straight leg raise (x ea bilat), Hip abd/add Supine Reps: 15 NuStep Minutes: 13 NuStep Workload: 4 Treatments w/c training, ambulation, car TRFs, sup to sit TRFs, LE exercises, toileting TRF . It looks as though pt. may not titrate off O2 before DC. in which case pts family will needs to train in this as pt and her could trip or tangle in O2 lines Assessment Current Status: Good Progress PT Short Term Goals Short Term Goals Time Frame: Feb 04, 2020 Roll Left & Right: 4 Sit to lyin Lying to sitting on side of be: 3 Sit to stand: 3 Chair/guk-hr-kmlcf transfer: 3 Walk 10 feet: 3 PT Group Home Goals State Director Goals PT State Director Goals Time Frame: Feb 18, 2020 Roll Left & Right (QC): 6 Sit to Lying (QC): 4 Lying-Sitting on Side/Bed(QC): 4 Sit to Stand (QC): 3 ([place]) Chair/Nkk-eu-Iiedj Xfer(QC): 3 ([place]) Toilet Transfer (QC): 3 ([place]) Car Transfer (QC): 3 ([place]) Does the Patient Walk: No and Walking Goal IS indicated Walk 10 feet (QC): 3 Walk 50ft with 2 Turns (QC): 3 Walk 150 ft (QC): 88 Walking 10ft on Uneven Surface: 88 1 Step (curb) (QC): 88 4 Steps (QC): 88 12 Steps (QC): 88 Picking up an Object (QC): 88 Wheel 50 feet with 2 turns (QC: 6 Wheel 150 feet: 6 PT Plan Treatment/Plan Treatment Plan: Continue Plan of Care Treatment Plan: Bed Mobility, Education, Functional Activity Renny, Functional Strength, Group Therapy, Gait, Safety, Therapeutic Exercise, Transfers Treatment Duration: Feb 18, 2020 Frequency: At least 5 of 7 days/Wk (IRF) Estimated Hrs Per Day: 1.5 hours per day Patient and/or Family Agrees t: Yes Safety Risks/Education Patient Education: Gait Training, Transfer Techniques, Correct Positioning, W/C Management, Disease Process, Safety Issues Teaching Recipient: Patient Teaching Methods: Demonstration, Discussion Response to Teaching: Verbalize Understanding, Return Demonstration, Reinforcement Needed Time/GCodes Time In: 1100 Time Out: 1200 Total Billed Treatment Time: 60 Total Billed Treatment 1,FA25m,GT15m,EX20m KENZIE MORE KETTLE TENDER Feb 29, 2020 12:08
[2020-02-29 16:10] VITALS: BP 164/70
[2020-02-29] MEDS: MELATONIN 3 MG TABLET PO PRN (20:43)
[2020-02-29] MEDS: SERTRALINE 50 MG (ZOLOFT) TABLET PO SCH (20:43)
[2020-02-29] MEDS: PRAMIPEXOLE 0.125 MG (MIRAPEX) TABLET PO SCH (20:44)
[2020-03-01 06:18] VITALS: BP 154/76
--- NOTE | 2020-03-01 08:05 | Occupational Ther Daily Note ---
OT Current Status-Daily Note Subjective Pt alert, sitting in recliner. Pt agrees to therapy. No c/o pain at this time. Mental Status/Objective Patient Orientation: Person, Place, Time, Situation Attachments: Oxygen (1L) ADL-Treatment Pt declines shower, agrees to sponge bath. Pt requests to use BSC 2x's during bathing. SBA for transfers and clothing manipulation, completes hygiene sitting on toilet independently. After set up, pt able to complete all areas except buttocks (completed on BSC) sitting in recliner. After set up, pt able to complete upper body dressing, footwear (sockaide for HANNAH hose) and lower body dressing. Transferred to w/c to propel into bathroom to sit at sink to complete oral care and grooming. Therapy Code Descriptions/Definitions Functional [place] Measure: 0=Not Assessed/NA 4=Minimal Assistance 1=Total Assistance 5=Supervision or Setup 2=Maximal Assistance 6=Modified [place] 3=Moderate Assistance 7=Complete IndependenceSCALE: Activities may be completed with or without assistive devices. 0-Vxhvmmdypp-manhdnp completes the activity by him/herself with no assistance from a helper. 5-Set-up or Clean-up Assistance-helper sets up or cleans up; patient completes activity. [place] assists only prior to or following the activity. 4-Supervision or Touching Assistance-helper provides verbal cues and/or touching/steadying and/or contact guard assistance as patient completes activity. Assistance may be provided throughout the activity or intermittently. 3-Partial/Moderate Assistance-helper does LESS THAN HALF the effort. [place] lifts, holds or supports trunk or limbs, but provides less than half the effort. 2-Substantial/Maximal Assistance-helper does MORE THAN HALF the effort. [place] lifts or holds trunk or limbs and provides more than half the effort. 4-Dprabtpuu-orgrek does ALL the effort. Patient does none of the effort to complete the activity. Or, the assistance of 2 or more helpers is required for the patient to complete the activity. If activity was not attempted, code reason: 7-Patient Refused. 9-Not Applicable-not attempted and the patient did not perform the activity before the current illness, exacerbation or injury. 10-Not Attempted due to Environmental Limitations-(lack of equipment, weather restraints, etc.). 88-Not Attempted due to Medical Conditions or Safety Concerns. Eating (QC): 6 (Using clinical judgement, pt able to open packages and containers by self and use regular utensils to eat.) Oral Hygiene (QC): 6 Shower/Bathe Self (QC): 5 Upper Body Dressing (QC): 5 Lower Body Dressing (QC): 5 On/Off Footwear: 5 Toileting Hygiene (QC): 4 Toilet Transfer (QC): 4 Other Treatment Pt propelled w/c to increase strength and activity tolerance throughout ARU. Monitored O2 sats, during propelling w/c upper 80's to low 90's with 1 L of O2. Pt unable to maintain 90% without O2 while propelling w/c. Pt propelled back to room and transferred from w/c to recliner with SBA. After therapy, pt sitting in recliner with call light/phone in reach. All needs met. OT Short Term Goals Short Term Goals Time Frame: Feb 09, 2020 Toileting hygiene: 3 Lower body dressin Putting on/taking off footwear: 3 OT Prison Goals Corporate Investigator Goals Time Frame: Mar 10, 2020 Eating (QC): 6 Oral Hygiene (QC): 6 Toileting Hygiene (QC): 6 Shower/Bathe Self (QC): 6 Upper Body Dressing (QC): 6 Lower Body Dressing (QC): 6 On/Off Footwear (QC): 6 Additional Goals: 1-Demonstrate ADL Tasks, 2-Verbalize Understanding, 3- ImproveStrength/Renny 1=Demonstrate adherence to instructed precautions during ADL tasks. 2=Patient will verbalize/demonstrate understanding of assistive devices/modifications for ADL. 3=Patient will improve strength/tolerance for activity to enable patient to perform ADL's. OT Education/Plan Problem List/Assessment Assessment: Decreased Activ Tolerance Discharge Recommendations Plan/Recommendations: Continue POC Treatment Plan/Plan of Care Patient would benefit from OT for education, treatment and training to promote independence in ADL's, mobility, safety and/or upper extremity function for ADL's. Plan of Care: ADL Retraining, Functional Mobility, Group Exercise/Act as Ind, UE Funct Exercise/Act Treatment Duration: Feb 18, 2020 Frequency: At least 5 of 7 days/Wk (IRF) Estimated Hrs Per Day: 1.5 hours per day Agreement: Yes Rehab Potential: Fair Time/GCodes Start Time: 07:20 Stop Time: 08:50 Total Time Billed (hr/min): 90 Billed Treatment Time 1 visit-ADL 5 (70 min) FA 1 (20 min) DENI GRISSOM Mar 01, 2020 08:04
[2020-03-01] MEDS: LIDOCAINE 4% (SALONPAS) PATCH TP SCH ×2 (08:06→21:48)
[2020-03-01] MEDS: SERTRALINE 100 MG (ZOLOFT) TAB PO SCH (08:06)
[2020-03-01] MEDS: ENOXAPARIN 40 MG/0.4 ML (LOVENOX) SYR SC SCH (08:06)
[2020-03-01] MEDS: LACTOBACILLUS ACIDOPHILUS (PROBIOTIC) CAPSULE PO SCH ×2 (08:06→21:49)
[2020-03-01] MEDS: SILDENAFIL 20 MG (REVATIO) TAB NON-FORMULARY PO SCH ×2 (08:06→21:48)
[2020-03-01] MEDS: METHIMAZOLE 5 MG PO SCH (08:07)
[2020-03-01] MEDS: VITAMIN D3 125 MCG (5,000 UNITS) CAPSULE PO SCH (08:07)
[2020-03-01] MEDS: PANTOPRAZOLE 40 MG (PROTONIX) TAB PO SCH ×2 (08:07→21:49)
[2020-03-01] MEDS: CYANOCOBALAMIN 1,000 MCG (VITAMIN B-12) TABLET PO SCH (08:07)
[2020-03-01] MEDS: MELOXICAM 7.5 MG (MOBIC) TABLET PO SCH (08:07)
[2020-03-01] MEDS: GABAPENTIN 300 MG (NEURONTIN) CAP PO SCH ×3 (08:07→21:50)
[2020-03-01] MEDS: amLODIPine 5 MG (NORVASC) TAB PO SCH (08:07)
[2020-03-01] MEDS: NIFEdipine ER 30 MG (PROCARDIA XL) TAB PO SCH (08:07)
[2020-03-01] MEDS: ALPRAZolam 0.25 MG (XANAX) TAB PO SCH ×2 (08:07→21:49)
[2020-03-01] MEDS: VALSARTAN 160 MG (DIOVAN) TABLET PO SCH (08:07)
[2020-03-01] MEDS: ASCORBIC ACID (VIT C) 500 MG TABLET PO SCH (08:07)
--- NOTE | 2020-03-01 08:51 | PM&R Progress Note ---
Subjective HPI/CC On Admission Date Seen by Provider: Mar 01, 2020 Time Seen by Provider: 09:00 Subjective/Events-last exam 03/01/20: Pt doing pretty well Denies any significant new issues Feels like she is gaining confidence and strength Discharge is planned for Friday Overall feels like she is ready for discharge Weaning off oxygen 02/29/20: Changing Tylenol to obtain dosing less than 4 grams a day so changing Tylenol Arthritis to BID instead of TID Pain medication will likely be required Overall doing pretty well but needs constant reassurance 02/28/20: Bowels moved this morning Hgb 10.9 Practicing the ramp now 02/27/20: Very somatic Cough at times No major issues No pain 02/26/20: 1L/min Stomach issues at times Very somatic and anxious Right knee improved 02/25/20: Dramatic progress now since right knee pain improved since Dr Dent injected right knee O2 maintained No new issues 02/24/20: Right knee injection has worked wonders BM yesterday Improved overall O2 maintained 02/23/20: Spoke to Dr. Dent and he performed injection of steroids on the right knee Knee had popped an caused a lot more pain Bowels moved yesterday Not really using the sit to stand anymore 02/22/20: Progressing very well Using still pxz-wc-hhrtm Weaning oxygen but she does desat during activity Team meeting tomorrow regarding disposition 02/21/20: Pt doing pretty well Bowels moved yesterday Oxygen remains at 1 liters Overall having some significant issues and continues to work with the sit to stand to try to be able to ambulate and return to independent living with her and her son helping out Will try to do everything we can to make that happen for her 02/20/20: Rash better Working with the site to stand well NHP could still be required until she is able to walk and do more for herself at home Her is disabled himself 02/19/20: Participation with therapy going well No pain reported except right knee Likely will need NHP 02/18/20: Rash improved with cream No new pain reported Right knee pain limits her activity May need NH placement 02/17/20: Monitor ambulation ability Sit to stand Rash on back 02/16/20: Family training today with and son Desats quickly Very anxious at times Will need to evaluate the next step in her care after family education 02/15/20: Sit to stand is very helpful Family education tomorrow with to see if he can manage the sit to stand May not be an option to go home 02/14/20: Pain pill will be given at 6 am to help therapy Hgb good at 9.7 Overall looks pretty good Much improved 02/13/20: Stool softener will be changed to prn Imodium prn Today is 50st anniversary 02/12/20: Participating in therapy Sit to stand Monitor right knee pain 02/11/20: Sit to stand working well for her Weakness improved Xanax helps her Patch and Voltaren helps her right knee 02/10/20: Had an ill episode earlier today Labs and c diff no acute issues Now resolved Doing well currently 02/09/20: NO issues Uses sit to stand well Very weak 02/08/20: Using sit to stand and doing very well Bowels moved today A lot of pain issues Requires a lot of care 02/07/20: Room air maintained O2 sat but with the minimal exertion she goes down into the 80 percent Discontinue Colestid Overall feels like she is doing much better Able to use the sit to stand pretty well 02/06/20: Has multiple little complaints DC PICC since it simply did not function properly DC Venofer O2 on 1L/min 02/05/20: Tearful at times Right knee pain is terrible at times Mobic will be restarted along with other home meds that have now been reviewed 02/04/20: Using sit to stand very well Heels are red so managing that O2 on/off 02/03/20: Oxycodone and Xanax ordered APAP Skateboard Standing with assist Memory loss noted Less edema right knee BM 02/02: Pt doing pretty well Participating in therapy Very motivated to improve Maintained on O2 2 liters 02/01/20: Right knee pain continues but considering the risk for complications from steroid injection after Covid, she will be managing Overall doing pretty well on 2 L of Oxygen Will replace Picc line since it was placed in the arm where she has had her previous mastectomy 01/31/20: Dr. Dent graciously agreed to see her for right knee pain and will initiate an injection Hgb 9.1 so midline will be placed with iron infusions 2 L of oxygen maintained After rounds Dr Dent updated me on the fact that no injection initiated due to high risk following COVID 01/30/20: Right knee pain continues Will reach out to Dr Dent tomorrow Tapazole restarted Midline needed for iron infusions Severe right knee pain 11/26 today so adjusted her pain meds and xray noted severe OA Dr Scott usually gives her a right knee injections every 3 months and she is overdue I will try to have ortho give pain injection Friday Tapazole not on her list and she has Graves disease she states O2 at 80% so will maintain 2L/min O2 Checking iron level since hgb 9.1 Adding TSH FT4 to labs BM today loose Review of Systems General: Fatigue Pulmonary: Dyspnea Objective Exam Vital Signs Vital Signs Date Time Temp Pulse Resp B/P (MAP) Pulse Ox O2 Delivery O2 Flow Rate FiO2 03/01/20 23:30 95 Nasal Cannula 1.00 03/01/20 17:15 36.2 76 20 142/77 (98) Capillary Refill : Less Than 3 Seconds General Appearance: No Apparent Distress, WD/WN, Chronically ill HEENT: PERRL/EOMI, Normal ENT Inspection, Pharynx Normal Neck: Full Range of Motion, Normal Inspection, Non Tender, Supple, Carotid Bruit Respiratory: Chest Non Tender, Lungs Clear, No Accessory Muscle Use, No Respiratory Distress, Decreased Breath Sounds Cardiovascular: Regular Rate, Rhythm, No Edema, No Gallop, No JVD, No Murmur, Normal Peripheral Pulses Gastrointestinal: Normal Bowel Sounds, No Organomegaly, No Pulsatile Mass, Non Tender, Soft Back: Normal Inspection, No CVA Tenderness, No Vertebral Tenderness Extremity: Normal Capillary Refill, Normal Inspection, Normal Range of Motion, Non Tender, No Calf Tenderness, No Pedal Edema Neurologic/Psychiatric: Alert, Oriented x3, Normal Mood/Affect, motorcycle mechanic II-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 FIM Transfers Therapy Code Descriptions/Definitions Functional [place] Measure: 0=Not Assessed/NA 4=Minimal Assistance 1=Total Assistance 5=Supervision or Setup 2=Maximal Assistance 6=Modified [place] 3=Moderate Assistance 7=Complete IndependenceSCALE: Activities may be completed with or without assistive devices. 3-Rrrmbgyazc-nskfhst completes the activity by him/herself with no assistance from a helper. 5-Set-up or Clean-up Assistance-helper sets up or cleans up; patient completes activity. [place] assists only prior to or following the activity. 4-Supervision or Touching Assistance-helper provides verbal cues and/or touching/steadying and/or contact guard assistance as patient completes activity. Assistance may be provided throughout the activity or intermittently. 3-Partial/Moderate Assistance-helper does LESS THAN HALF the effort. [place] lifts, holds or supports trunk or limbs, but provides less than half the effort. 2-Substantial/Maximal Assistance-helper does MORE THAN HALF the effort. [place] lifts or holds trunk or limbs and provides more than half the effort. 1-Rehvcpakr-vixncl does ALL the effort. Patient does none of the effort to complete the activity. Or, the assistance of 2 or more helpers is required for the patient to complete the activity. If activity was not attempted, code reason: 7-Patient Refused. 9-Not Applicable-not attempted and the patient did not perform the activity before the current illness, exacerbation or injury. 10-Not Attempted due to Environmental Limitations-(lack of equipment, weather restraints, etc.). 88-Not Attempted due to Medical Conditions or Safety Concerns. Roll Left to Right (QC): 6 Sit to Lying (QC): 6 Sit to Stand (QC): 5 Chair/Vne-ka-Idrrj Xfer(QC): 5 Car Transfer (QC): 5 Gait Training Does the Patient Walk?: Yes Distance: 30' x3 Walk 10 feet (QC): 4 Walk 50 ft with 2 Turns(QC): 4 Walk 150 ft (QC): 88 Walking 10ft/uneven surface-QC: 88 Gait Persons Needed: 1 Gait Assistive Device: FWW Wheelchair Training Does the Pt Use a Wheelchair?: Yes Distance: 50'x2 Wheel 50 ft with 2 turns (QC): 5 Wheel 150 ft (QC): 5 Type of Wheelchair: Manual Stair Training Stair Training: Handrails/: uses walker #of Steps: 1 1 Step (curb) (QC): 3 4 Steps (QC): 88 12 Steps (QC): 88 Stairs: Pattern: Step to Balance Picking up an Object (QC): 88 ADL-Treatment Eating (QC): 6 (Using clinical judgement, pt able to open packages and containers by self and use regular utensils to eat.) Oral Hygiene (QC): 6 Bathing Location: L Arm, R Arm, L Upper Leg, R Upper Leg, L Lower Leg (including foot), R Lower Leg (including foot), Chest, Abdomen, Buttocks, Perineal Area Shower/Bathe Self (QC): 5 Upper Body Dressing (QC): 5 Lower Body Dressing (QC): 5 On/Off Footwear (QC): 5 Toileting Hygiene (QC): 4 Toilet Transfer (QC): 4 Assessment/Plan Assessment and Plan Assess & Plan/Chief Complaint Assessment: Critical illness debility from COVID-19 dx 12/11/19 OA h/o breast cancer Allergic rhinitis HTN GERD Depression Lung nodules [facility] 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 since 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 Grave's disease Anxiety Severe right knee pain from OA chronic Plan: IRF protocol Wean O2 Pain meds BM regimen 01/29/20: Restart Tapazole 5mg daily Knee injection by ortho will be pursued tomorrow O2 01/30/20: Right knee injection will be requested from Dr Dent Pain meds Tapazole O2 01/31/20: Knee injection not performed due to COVID related risk Monitor O2 Midline and Venofer 02/01/20: Monitor closely O2 wean IRF protocol 02/01/30: Monitor O2 Aggressive therapy 02/03/20: Stood with assist and parallel bars today Improved status IV Venofer after PICC changed 02/04/20: Monitor O2 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 02/05/20: O2 Mobic Home meds 02/06/20: DC PICC since it simply did not function properly O2 02/07/20: Monitor closely O2 wean Sit to stand 02/08/20: Participation good Monitor pain 02/09/20: Sit to stand Continue therapy 02/10/20: Labs reviewed Monitor illness closely 02/11/20: Monitor closely Pain control right knee 02/12/20: Monitor right knee pain O2 Increase activity 02/13/20: Imodium prn Sit to stand Right knee pain 02/14/20: Monitor closely Monitor pain 02/15/20: Family education with sit to stand to see if home is an option 02/17/20: Monitor ambulation Rash treatment 02/18/20: Continue treatment O2 wean 02/19/20: Monitor O2 Pain management 02/20/20: Check labs in am Monitor BP 02/21/20: Labs reviewed Improved status Hemoglobin normal now 02/22/20/: Monitor O2 Increase ambulation 02/23/20: RIght knee injection, appreciate Dr Dent Monitor ambulation DC late next week 02/24/20: Improved knee pain will enable her to ambulate better Home late next week 02/25/20: Dramatic improvement Ambulate 02/26/20: Monitor BP Monitor pain 02/27/20: DC Friday Patient tends to be somatic 02/28/20: DC Friday Monitor closely 02/29/20: DME discussed Monitor closely 03/01/20: Wean O2 Monitor right knee pain DC Friday (1) Myopathy (2) COVID-19 (3) GERD (gastroesophageal reflux disease) (4) Hypoxia (5) HX: breast cancer (6) Anxiety (7) Depression JARRELL HURD DO Mar 01, 2020 08:51
[2020-03-01] MEDS: ARTHRITIS PAIN RELIEF PO SCH ×2 (09:00→21:47)
[2020-03-01] MEDS: DICLOFENAC 1% GEL 100 GM (VOLTAREN) TUBE TOP SCH ×4 (09:56→21:49)
[2020-03-01] MEDS: MICONAZOLE 2% POWDER (DESENEX AF) 90 GM TOP SCH ×2 (09:56→21:50)
--- NOTE | 2020-03-01 11:22 | Speech Therapy Daily Note ---
Speech Daily Progress Note Subjective Date Seen by Provider: Mar 01, 2020 Time Seen by Provider: 00:30 Patient sitting up watching television. Patient states she is getting stronger every day. Objective Patient completed a series of safety awareness cards related to scenarios she may encounter with 90% given min cuing. Assessment Assessment Current Status: Good Progress Treatment Plan Continue Plan of Care Speech Short Term Goals Short Term Goals Short Term Goals 1) Patient will follow/recall multi step directions for wheelchair mobility without cues at 90% or greater. 2) Patient will recall sequencing for daily activities without cues at 90% or greater. Speech Pet Care Technician Goals Pet Care Technician Goals Patient will demonstrate safety awareness with all daily activities and processes. Speech-Plan Patient/Family Goals Patient/Family Goals: Patient is scheduled to discharge to her home where she lives with her on Friday. Treatment Plan Speech Therapy Treatment Plan: Continue Plan of Care Treatment Duration: Mar 03, 2020 Frequency: 4 times per week (Patient will receive ST 4-5x per week) Estimated Hrs Per Day: .5 hour per day Rehab Potential: Fair Barriers to Learning: Cognitive deficits related to safety awareness, although these have resolved. Pt/Family Agrees to Plan: Yes Safety Risks/Education Teaching Recipient: Patient Teaching Methods: Demonstration, Discussion Response to Teaching: Verbalize Understanding, Return Demonstration Education Topics Provided: Continued safety upon her return home Time Speech Therapy Time In: 09:30 Speech Therapy Time Out: 10:00 Total Billed Time: 30 Billed Treatment Time 1, ROLANDO [place] Mar 01, 2020 11:22
--- NOTE | 2020-03-01 12:30 | Physical Therapy Daily Note ---
PT Daily Note-Current Subjective Pt sitting in recliner upon arrival. Pt agrees to PT. Pain Numeric Pain Scale: 9 Location: Right Location Body Site: Knee Pain Description: Sharp Comment: Pain with WB & ambulation. Mental Status Patient Orientation: Person, Place, Situation Attachments: Oxygen (1L) O2 is monitored throughout w/ & w/o to try to ween off O2. Transfers SCALE: Activities may be completed with or without assistive devices. 6-Hyfxssbqtt-jprmfgv completes the activity by him/herself with no assistance from a helper. 5-Set-up or Clean-up Assistance-helper sets up or cleans up; patient completes activity. [place] assists only prior to or following the activity. 4-Supervision or Touching Assistance-helper provides verbal cues and/or touching/steadying and/or contact guard assistance as patient completes activity. Assistance may be provided throughout the activity or intermittently. 3-Partial/Moderate Assistance-helper does LESS THAN HALF the effort. [place] lifts, holds or supports trunk or limbs, but provides less than half the effort. 2-Substantial/Maximal Assistance-helper does MORE THAN HALF the effort. [place] lifts or holds trunk or limbs and provides more than half the effort. 4-Aldphrpke-jjwimd does ALL the effort. Patient does none of the effort to complete the activity. Or, the assistance of 2 or more helpers is required for the patient to complete the activity. If activity was not attempted, code reason: 7-Patient Refused. 9-Not Applicable-not attempted and the patient did not perform the activity before the current illness, exacerbation or injury. 10-Not Attempted due to Environmental Limitations-(lack of equipment, weather restraints, etc.). 88-Not Attempted due to Medical Conditions or Safety Concerns. Sit to Stand (QC): 5 Toilet Transfer (QC): 5 Weight Bearing Full Weight Bearing Full Weight Bearing Gait Training Does the Patient Walk?: Yes Distance: 50' x5 Walk 10 feet (QC): 5 Walk 50 ft with 2 Turns(QC): 5 Walk 150 ft (QC): 5 Gait Persons Needed: 1 Gait Assistive Device: FWW Pt fatigues and needs both standing RB and occasional sitting RB. O2 monitored but pt has difficulty keeping O2 above 90% with ambulation so O2 remains on during tx. Exercises Seated Therapy Exercises: Ankle pumps, Long arc quads, Hip flexion, Kicking activity Seated Reps: 15 Treatments Pt voices concern over a few DC questions including pain meds for DC due to increased pain with WB, HH PT and when they will start and getting Hip kit as well as [facility] for home. TF to standing and amb. to BR. After finishing, pt amb. in hallway, taking RB as needed. Pt completes Seated Ex and returns to room to rest in recliner. All needs met, call light in hand. Assessment Current Status: Good Progress Pt is a little anxious about DC and worried about home. TILE POWER SHEAR OPERATOR reassured pt that pt has been doing well and ARU will assist with getting DC questions met. SW is notified. PT Short Term Goals Short Term Goals Time Frame: Feb 04, 2020 Roll Left & Right: 4 Sit to lyin Lying to sitting on side of be: 3 Sit to stand: 3 Chair/cau-nh-qqosv transfer: 3 Walk 10 feet: 3 PT Retirement Goals Retirement Goals PT Retirement Goals Time Frame: Feb 18, 2020 Roll Left & Right (QC): 6 Sit to Lying (QC): 4 Lying-Sitting on Side/Bed(QC): 4 Sit to Stand (QC): 3 ([place]) Chair/Dmm-lh-Ekubp Xfer(QC): 3 ([place]) Toilet Transfer (QC): 3 ([place]) Car Transfer (QC): 3 ([place]) Does the Patient Walk: No and Walking Goal IS indicated Walk 10 feet (QC): 3 Walk 50ft with 2 Turns (QC): 3 Walk 150 ft (QC): 88 Walking 10ft on Uneven Surface: 88 1 Step (curb) (QC): 88 4 Steps (QC): 88 12 Steps (QC): 88 Picking up an Object (QC): 88 Wheel 50 feet with 2 turns (QC: 6 Wheel 150 feet: 6 PT Plan Problem List Problem List: Activity Tolerance, Gait Treatment/Plan Treatment Plan: Continue Plan of Care Treatment Plan: Bed Mobility, Education, Functional Activity Renny, Functional Strength, Group Therapy, Gait, Safety, Therapeutic Exercise, Transfers Treatment Duration: Feb 18, 2020 Frequency: At least 5 of 7 days/Wk (IRF) Estimated Hrs Per Day: 1.5 hours per day Patient and/or Family Agrees t: Yes Safety Risks/Education Patient Education: Gait Training, Correct Positioning, Safety Issues Teaching Recipient: Patient Teaching Methods: Discussion Response to Teaching: Verbalize Understanding Time/GCodes Time In: 1015 Time Out: 1130 Total Billed Treatment Time: 75 Total Billed Treatment 1, FA x2 (25m), GT x2 (30m) & EX (20m) SIENNA POND TILE POWER SHEAR OPERATOR Mar 01, 2020 12:30
[2020-03-01 17:15] VITALS: BP 142/77
[2020-03-01] MEDS: MELATONIN 3 MG TABLET PO PRN (21:49)
[2020-03-01] MEDS: SERTRALINE 50 MG (ZOLOFT) TABLET PO SCH (21:50)
[2020-03-01] MEDS: PRAMIPEXOLE 0.125 MG (MIRAPEX) TABLET PO SCH (21:50)
[2020-03-02 06:01] VITALS: BP 134/63
--- NOTE | 2020-03-02 09:02 | Occupational Ther Daily Note ---
OT Current Status-Daily Note Subjective Pt alert, sitting in recliner. Pt agrees to therapy. No c/o pain at this time. Mental Status/Objective Patient Orientation: Person, Place, Time, Situation Attachments: Oxygen (1L) ADL-Treatment Pt agrees to shower. Pt able to transfer SBA to supervision throughout session today. Pt transferred to w/c then propelled w/c to bathroom. Transferred to toilet supervision 2x's. Pt pushed up from w/c to stabilize self to manipulate pants, sat on toilet to cleanse self. Supervision to transfer into shower using w/c and grabbars. Completed shower sitting on shower bench using long handle sponge, grabbars and hand held shower, stood with grabbars to cleanse buttocks and rosibel area. After set up, pt able to complete upper body, footwear and lower body dressing by self. Sit to stand 3x's to hike underwear and pants over hips due to increased fatigue. Pt sat at sink to complete oral care and grooming, independently. Therapy Code Descriptions/Definitions Functional [place] Measure: 0=Not Assessed/NA 4=Minimal Assistance 1=Total Assistance 5=Supervision or Setup 2=Maximal Assistance 6=Modified [place] 3=Moderate Assistance 7=Complete IndependenceSCALE: Activities may be completed with or without assistive devices. 1-Jnyeyrmvlu-girlkfi completes the activity by him/herself with no assistance from a helper. 5-Set-up or Clean-up Assistance-helper sets up or cleans up; patient completes activity. [place] assists only prior to or following the activity. 4-Supervision or Touching Assistance-helper provides verbal cues and/or touching/steadying and/or contact guard assistance as patient completes activity. Assistance may be provided throughout the activity or intermittently. 3-Partial/Moderate Assistance-helper does LESS THAN HALF the effort. [place] lifts, holds or supports trunk or limbs, but provides less than half the effort. 2-Substantial/Maximal Assistance-helper does MORE THAN HALF the effort. [place] lifts or holds trunk or limbs and provides more than half the effort. 2-Kqoqhubtm-ddwuiv does ALL the effort. Patient does none of the effort to complete the activity. Or, the assistance of 2 or more helpers is required for the patient to complete the activity. If activity was not attempted, code reason: 7-Patient Refused. 9-Not Applicable-not attempted and the patient did not perform the activity before the current illness, exacerbation or injury. 10-Not Attempted due to Environmental Limitations-(lack of equipment, weather restraints, etc.). 88-Not Attempted due to Medical Conditions or Safety Concerns. Eating (QC): 6 (Using clinical judgement, pt able to complete own meal setup and use regular utensils to eat.) Oral Hygiene (QC): 6 Bathing Location: L Arm, R Arm, L Upper Leg, R Upper Leg, L Lower Leg (including foot), R Lower Leg (including foot), Chest, Abdomen, Buttocks, Perineal Area Shower/Bathe Self (QC): 5 Upper Body Dressing (QC): 5 Lower Body Dressing (QC): 5 On/Off Footwear: 5 Toileting Hygiene (QC): 6 Toilet Transfer (QC): 6 Other Treatment Pt propelled self to gym using w/c. Pt unable to maintain 90% and above for O2 levels with w/c mobility and exercises, required 1L of oxygen. Pt completed 12 min of arm bike to increase strength and activity tolerance for daily functional tasks, multiple recovery breaks required. Pt then propelled w/c back to room and requested to use bathroom. Nrsg aware of pt's position. All needs met in room. OT Short Term Goals Short Term Goals Time Frame: Feb 09, 2020 Toileting hygiene: 3 Lower body dressin Putting on/taking off footwear: 3 OT Manager Entry Goals Manager Entry Goals Time Frame: Mar 10, 2020 Eating (QC): 6 Oral Hygiene (QC): 6 Toileting Hygiene (QC): 6 Shower/Bathe Self (QC): 6 Upper Body Dressing (QC): 6 Lower Body Dressing (QC): 6 On/Off Footwear (QC): 6 Additional Goals: 1-Demonstrate ADL Tasks, 2-Verbalize Understanding, 3- ImproveStrength/Renny 1=Demonstrate adherence to instructed precautions during ADL tasks. 2=Patient will verbalize/demonstrate understanding of assistive devices/modifications for ADL. 3=Patient will improve strength/tolerance for activity to enable patient to perform ADL's. OT Education/Plan Problem List/Assessment Assessment: Decreased Activ Tolerance, Impaired Funct Balance Discharge Recommendations Plan/Recommendations: Continue POC Treatment Plan/Plan of Care Patient would benefit from OT for education, treatment and training to promote independence in ADL's, mobility, safety and/or upper extremity function for ADL's. Plan of Care: ADL Retraining, Functional Mobility, Group Exercise/Act as Ind, UE Funct Exercise/Act Treatment Duration: Feb 18, 2020 Frequency: At least 5 of 7 days/Wk (IRF) Estimated Hrs Per Day: 1.5 hours per day Agreement: Yes Rehab Potential: Fair Time/GCodes Start Time: 07:30 Stop Time: 09:00 Total Time Billed (hr/min): 90 Billed Treatment Time 1 visit-ADL 5 (75 min) EX 1 (15 min) DENI GRISSOM Mar 02, 2020 09:02
[2020-03-02] MEDS: MICONAZOLE 2% POWDER (DESENEX AF) 90 GM TOP SCH ×2 (09:03→20:15)
[2020-03-02] MEDS: DICLOFENAC 1% GEL 100 GM (VOLTAREN) TUBE TOP SCH ×4 (09:03→20:16)
[2020-03-02] MEDS: ENOXAPARIN 40 MG/0.4 ML (LOVENOX) SYR SC SCH (09:04)
[2020-03-02] MEDS: CYANOCOBALAMIN 1,000 MCG (VITAMIN B-12) TABLET PO SCH (09:04)
[2020-03-02] MEDS: SILDENAFIL 20 MG (REVATIO) TAB NON-FORMULARY PO SCH ×2 (09:04→20:14)
[2020-03-02] MEDS: METHIMAZOLE 5 MG PO SCH (09:04)
[2020-03-02] MEDS: LIDOCAINE 4% (SALONPAS) PATCH TP SCH ×2 (09:04→20:15)
[2020-03-02] MEDS: ALPRAZolam 0.25 MG (XANAX) TAB PO SCH ×2 (09:04→20:13)
[2020-03-02] MEDS: VITAMIN D3 125 MCG (5,000 UNITS) CAPSULE PO SCH (09:04)
[2020-03-02] MEDS: NIFEdipine ER 30 MG (PROCARDIA XL) TAB PO SCH (09:05)
[2020-03-02] MEDS: PANTOPRAZOLE 40 MG (PROTONIX) TAB PO SCH ×2 (09:05→20:13)
[2020-03-02] MEDS: ASCORBIC ACID (VIT C) 500 MG TABLET PO SCH (09:05)
[2020-03-02] MEDS: GABAPENTIN 300 MG (NEURONTIN) CAP PO SCH ×3 (09:05→20:13)
[2020-03-02] MEDS: LACTOBACILLUS ACIDOPHILUS (PROBIOTIC) CAPSULE PO SCH ×2 (09:05→20:13)
[2020-03-02] MEDS: SERTRALINE 100 MG (ZOLOFT) TAB PO SCH (09:05)
[2020-03-02] MEDS: amLODIPine 5 MG (NORVASC) TAB PO SCH (09:05)
[2020-03-02] MEDS: VALSARTAN 160 MG (DIOVAN) TABLET PO SCH (09:05)
[2020-03-02] MEDS: MELOXICAM 7.5 MG (MOBIC) TABLET PO SCH (09:05)
[2020-03-02] MEDS: ARTHRITIS PAIN RELIEF PO SCH ×2 (09:06→20:14)
--- NOTE | 2020-03-02 10:33 | PM&R Progress Note ---
Subjective HPI/CC On Admission Date Seen by Provider: Mar 02, 2020 Time Seen by Provider: 10:30 Subjective/Events-last exam 03/02/20: DC tomorrow Home O2 eval DME set up Excited about DC 03/01/20: Pt doing pretty well Denies any significant new issues Feels like she is gaining confidence and strength Discharge is planned for Friday Overall feels like she is ready for discharge Weaning off oxygen 02/29/20: Changing Tylenol to obtain dosing less than 4 grams a day so changing Tylenol Arthritis to BID instead of TID Pain medication will likely be required Overall doing pretty well but needs constant reassurance 02/28/20: Bowels moved this morning Hgb 10.9 Practicing the ramp now 02/27/20: Very somatic Cough at times No major issues No pain 02/26/20: 1L/min Stomach issues at times Very somatic and anxious Right knee improved 02/25/20: Dramatic progress now since right knee pain improved since Dr Dent injected right knee O2 maintained No new issues 02/24/20: Right knee injection has worked wonders BM yesterday Improved overall O2 maintained 02/23/20: Spoke to Dr. Dent and he performed injection of steroids on the right knee Knee had popped an caused a lot more pain Bowels moved yesterday Not really using the sit to stand anymore 02/22/20: Progressing very well Using still rmk-or-gbodi Weaning oxygen but she does desat during activity Team meeting tomorrow regarding disposition 02/21/20: Pt doing pretty well Bowels moved yesterday Oxygen remains at 1 liters Overall having some significant issues and continues to work with the sit to stand to try to be able to ambulate and return to independent living with her and her son helping out Will try to do everything we can to make that happen for her 02/20/20: Rash better Working with the site to stand well NHP could still be required until she is able to walk and do more for herself at home Her is disabled himself 02/19/20: Participation with therapy going well No pain reported except right knee Likely will need NHP 02/18/20: Rash improved with cream No new pain reported Right knee pain limits her activity May need NH placement 02/17/20: Monitor ambulation ability Sit to stand Rash on back 02/16/20: Family training today with and son Desats quickly Very anxious at times Will need to evaluate the next step in her care after family education 02/15/20: Sit to stand is very helpful Family education tomorrow with to see if he can manage the sit to stand May not be an option to go home 02/14/20: Pain pill will be given at 6 am to help therapy Hgb good at 9.7 Overall looks pretty good Much improved 02/13/20: Stool softener will be changed to prn Imodium prn Today is 50 anniversary 02/12/20: Participating in therapy Sit to stand Monitor right knee pain 02/11/20: Sit to stand working well for her Weakness improved Xanax helps her Patch and Voltaren helps her right knee 02/10/20: Had an ill episode earlier today Labs and c diff no acute issues Now resolved Doing well currently 02/09/20: NO issues Uses sit to stand well Very weak 02/08/20: Using sit to stand and doing very well Bowels moved today A lot of pain issues Requires a lot of care 02/07/20: Room air maintained O2 sat but with the minimal exertion she goes down into the 80 percent Discontinue Colestid Overall feels like she is doing much better Able to use the sit to stand pretty well 02/06/20: Has multiple little complaints DC PICC since it simply did not function properly DC Venofer O2 on 1L/min 02/05/20: Tearful at times Right knee pain is terrible at times Mobic will be restarted along with other home meds that have now been reviewed 02/04/20: Using sit to stand very well Heels are red so managing that O2 on/off 02/03/20: Oxycodone and Xanax ordered APAP Skateboard Standing with assist Memory loss noted Less edema right knee BM 02/02: Pt doing pretty well Participating in therapy Very motivated to improve Maintained on O2 2 liters 02/01/20: Right knee pain continues but considering the risk for complications from steroid injection after Covid, she will be managing Overall doing pretty well on 2 L of Oxygen Will replace Picc line since it was placed in the arm where she has had her prev ious mastectomy 01/31/20: Dr. Dent graciously agreed to see her for right knee pain and will initiate an injection Hgb 9.1 so midline will be placed with iron infusions 2 L of oxygen maintained After rounds Dr Dent updated me on the fact that no injection initiated due to high risk following COVID 01/30/20: Right knee pain continues Will reach out to Dr Dent tomorrow Tapazole restarted Midline needed for iron infusions Severe right knee pain 10/10 today so adjusted her pain meds and xray noted severe OA Dr Scott usually gives her a right knee injections every 3 months and she is overdue I will try to have ortho give pain injection Friday Tapazole not on her list and she has Graves disease she states O2 at 80% so will maintain 2L/min O2 Checking iron level since hgb 9.1 Adding TSH FT4 to labs BM today loose Review of Systems General: Fatigue, Malaise Pulmonary: Dyspnea, Cough Objective Exam Vital Signs Vital Signs Date Time Temp Pulse Resp B/P (MAP) Pulse Ox O2 Delivery O2 Flow Rate FiO2 03/02/20 21:32 Nasal Cannula 2.00 03/02/20 18:00 36.9 80 20 147/67 (93) 95 Capillary Refill : Less Than 3 Seconds General Appearance: No Apparent Distress, WD/WN, Chronically ill HEENT: PERRL/EOMI, Normal ENT Inspection, Pharynx Normal Neck: Full Range of Motion, Normal Inspection, Non Tender, Supple, Carotid Bruit Respiratory: Chest Non Tender, Lungs Clear, No Accessory Muscle Use, No Respiratory Distress, Decreased Breath Sounds Cardiovascular: Regular Rate, Rhythm, No Edema, No Gallop, No JVD, No Murmur, Normal Peripheral Pulses Gastrointestinal: Normal Bowel Sounds, No Organomegaly, No Pulsatile Mass, Non Tender, Soft Back: Normal Inspection, No CVA Tenderness, No Vertebral Tenderness Extremity: Normal Capillary Refill, Normal Inspection, Normal Range of Motion, Non Tender, No Calf Tenderness, No Pedal Edema Neurologic/Psychiatric: Alert, Oriented x3, Normal Mood/Affect, financial management II-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 FIM Transfers Therapy Code Descriptions/Definitions Functional [place] Measure: 0=Not Assessed/NA 4=Minimal Assistance 1=Total Assistance 5=Supervision or Setup 2=Maximal Assistance 6=Modified [place] 3=Moderate Assistance 7=Complete IndependenceSCALE: Activities may be completed with or without assistive devices. 5-Tivjnitwqu-gpqwbpg completes the activity by him/herself with no assistance from a helper. 5-Set-up or Clean-up Assistance-helper sets up or cleans up; patient completes activity. [place] assists only prior to or following the activity. 4-Supervision or Touching Assistance-helper provides verbal cues and/or touching/steadying and/or contact guard assistance as patient completes activity. Assistance may be provided throughout the activity or intermittently. 3-Partial/Moderate Assistance-helper does LESS THAN HALF the effort. [place] lifts, holds or supports trunk or limbs, but provides less than half the effort. 2-Substantial/Maximal Assistance-helper does MORE THAN HALF the effort. [place] lifts or holds trunk or limbs and provides more than half the effort. 8-Hqdqswktj-zaqfgg does ALL the effort. Patient does none of the effort to complete the activity. Or, the assistance of 2 or more helpers is required for the patient to complete the activity. If activity was not attempted, code reason: 7-Patient Refused. 9-Not Applicable-not attempted and the patient did not perform the activity before the current illness, exacerbation or injury. 10-Not Attempted due to Environmental Limitations-(lack of equipment, weather restraints, etc.). 88-Not Attempted due to Medical Conditions or Safety Concerns. Roll Left to Right (QC): 6 Sit to Lying (QC): 6 Sit to Stand (QC): 5 Chair/Wyt-ro-Sqeic Xfer(QC): 5 Car Transfer (QC): 5 Gait Training Does the Patient Walk?: Yes Distance: 50' x5 Walk 10 feet (QC): 5 Walk 50 ft with 2 Turns(QC): 5 Walk 150 ft (QC): 5 Walking 10ft/uneven surface-QC: 88 Gait Persons Needed: 1 Gait Assistive Device: FWW Wheelchair Training Does the Pt Use a Wheelchair?: Yes Distance: 50'x2 Wheel 50 ft with 2 turns (QC): 5 Wheel 150 ft (QC): 5 Type of Wheelchair: Manual Stair Training Stair Training: Handrails/: uses walker #of Steps: 1 1 Step (curb) (QC): 3 4 Steps (QC): 88 12 Steps (QC): 88 Stairs: Pattern: Step to Balance Picking up an Object (QC): 88 ADL-Treatment Eating (QC): 6 (Using clinical judgement, pt able to complete own meal setup and use regular utensils to eat.) Oral Hygiene (QC): 6 Bathing Location: L Arm, R Arm, L Upper Leg, R Upper Leg, L Lower Leg (including foot), R Lower Leg (including foot), Chest, Abdomen, Buttocks, Perineal Area Shower/Bathe Self (QC): 5 Upper Body Dressing (QC): 5 Lower Body Dressing (QC): 5 On/Off Footwear (QC): 5 Toileting Hygiene (QC): 6 Toilet Transfer (QC): 6 Assessment/Plan Assessment and Plan Assess & Plan/Chief Complaint Assessment: Critical illness debility from COVID-19 dx 12/11/19 OA h/o breast cancer Allergic rhinitis HTN GERD Depression Lung nodules [facility] 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 since 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 Grave's disease Anxiety Severe right knee pain from OA chronic Plan: IRF protocol Wean O2 Pain meds BM regimen 01/29/20: Restart Tapazole 5mg daily Knee injection by ortho will be pursued tomorrow O2 01/30/20: Right knee injection will be requested from Dr Dent Pain meds Tapazole O2 01/31/20: Knee injection not performed due to COVID related risk Monitor O2 Midline and Venofer 02/01/20: Monitor closely O2 wean IRF protocol 02/01/30: Monitor O2 Aggressive therapy 02/03/20: Stood with assist and parallel bars today Improved status IV Venofer after PICC changed 02/04/20: Monitor O2 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 02/05/20: O2 Mobic Home meds 02/06/20: DC PICC since it simply did not function properly O2 02/07/20: Monitor closely O2 wean Sit to stand 02/08/20: Participation good Monitor pain 02/09/20: Sit to stand Continue therapy 02/10/20: Labs reviewed Monitor illness closely 02/11/20: Monitor closely Pain control right knee 02/12/20: Monitor right knee pain O2 Increase activity 02/13/20: Imodium prn Sit to stand Right knee pain 02/14/20: Monitor closely Monitor pain 02/15/20: Family education with sit to stand to see if home is an option 02/17/20: Monitor ambulation Rash treatment 02/18/20: Continue treatment O2 wean 02/19/20: Monitor O2 Pain management 02/20/20: Check labs in am Monitor BP 02/21/20: Labs reviewed Improved status Hemoglobin normal now 02/22/20/: Monitor O2 Increase ambulation 02/23/20: RIght knee injection, appreciate Dr Dent Monitor ambulation DC late next week 02/24/20: Improved knee pain will enable her to ambulate better Home late next week 02/25/20: Dramatic improvement Ambulate 02/26/20: Monitor BP Monitor pain 02/27/20: DC Friday Patient tends to be somatic 02/28/20: DC Friday Monitor closely 02/29/20: DME discussed Monitor closely 03/01/20: Wean O2 Monitor right knee pain DC Friday03/02/20: DC tomorrow Home O2 eval (1) Myopathy (2) COVID-19 (3) GERD (gastroesophageal reflux disease) (4) Hypoxia (5) HX: breast cancer (6) Anxiety (7) Depression JARRELL HURD DO Mar 02, 2020 10:33
--- NOTE | 2020-03-02 11:24 | Physical Therapy Daily Note ---
PT Daily Note-Current Subjective Pt up in wheelchair upon arrival to room, agreeable to PT treatment at this time. Pt continues to have (R) knee pain, rates it at 7/10 with ambulation. Appearance Following session, pt returned to bed, call light and tray within reach, All needs met at this time. Mental Status Patient Orientation: Person, Place, Situation Attachments: Oxygen (1L) Transfers SCALE: Activities may be completed with or without assistive devices. 7-Igzdxwisho-jozsezy completes the activity by him/herself with no assistance from a helper. 5-Set-up or Clean-up Assistance-helper sets up or cleans up; patient completes activity. [place] assists only prior to or following the activity. 4-Supervision or Touching Assistance-helper provides verbal cues and/or touching/steadying and/or contact guard assistance as patient completes activity. Assistance may be provided throughout the activity or intermittently. 3-Partial/Moderate Assistance-helper does LESS THAN HALF the effort. [place] lifts, holds or supports trunk or limbs, but provides less than half the effort. 2-Substantial/Maximal Assistance-helper does MORE THAN HALF the effort. [place] lifts or holds trunk or limbs and provides more than half the effort. 6-Lqizdoars-acfnja does ALL the effort. Patient does none of the effort to complete the activity. Or, the assistance of 2 or more helpers is required for the patient to complete the activity. If activity was not attempted, code reason: 7-Patient Refused. 9-Not Applicable-not attempted and the patient did not perform the activity before the current illness, exacerbation or injury. 10-Not Attempted due to Environmental Limitations-(lack of equipment, weather restraints, etc.). 88-Not Attempted due to Medical Conditions or Safety Concerns. Roll Left & Right (QC): 6 Sit to Lying (QC): 6 Lying to Sitting/Side of Bed(Q: 6 Sit to Stand (QC): 5 Chair/Com-nh-Pqisz Xfer(QC): 5 Toilet Transfer (QC): 5 Car Transfer (QC): 5 Pt requires cueing for car transfer, she is a little anxious with initial transfer, but then completes car transfer x2 more times, with out verbal cueing or any physical assistance. Weight Bearing Full Weight Bearing Full Weight Bearing Gait Training Distance: 50' x 3 Walk 10 feet (QC): 4 Walk 50 ft with 2 Turns(QC): 4 Walk 150 ft (QC): 88 Walking 10ft/uneven surface-QC: 4 Gait Assistive Device: FWW Pt unable to ambulate 150 ft due to O2 sats dropping with ambulation. Following 50 ft ambulation pt complains of SOB, O2 checked and lowest sats seen during session 90% Wheelchair Training Does the Pt Use a Wheelchair?: Yes Wheel 50 ft with 2 turns (QC): 5 Wheel 150 ft (QC): 5 Type of Wheelchair: Manual Stair Training 1 Step (curb) (QC): 4 4 Steps (QC): 88 12 Steps (QC): 88 Treatments Following car transfer and ambulation to the therapy gym, pt completed curb step and ambulation over uneven surfaces. Then pt propelled wch down to elevators and then to the ramp to complete half of the descent of ramp walking and the other half in the wch, then in the same order with the ascent of the ramp. Pt then returned to room and transferred back to bed. Assessment Current Status: Good Progress Pt continues to be limited by R knee pain and O2 sats with exertion. O2 remained above 90% this session, on 1L throughout. PT Short Term Goals Short Term Goals Time Frame: Feb 04, 2020 Roll Left & Right: 4 Sit to lyin Lying to sitting on side of be: 3 Sit to stand: 3 Chair/nhz-xk-bflzo transfer: 3 Walk 10 feet: 3 PT Correction Goals Correction Goals PT Correction Goals Time Frame: Feb 18, 2020 Roll Left & Right (QC): 6 Sit to Lying (QC): 4 Lying-Sitting on Side/Bed(QC): 4 Sit to Stand (QC): 3 ([place]) Chair/Bun-pz-Axayl Xfer(QC): 3 ([place]) Toilet Transfer (QC): 3 ([place]) Car Transfer (QC): 3 ([place]) Does the Patient Walk: No and Walking Goal IS indicated Walk 10 feet (QC): 3 Walk 50ft with 2 Turns (QC): 3 Walk 150 ft (QC): 88 Walking 10ft on Uneven Surface: 88 1 Step (curb) (QC): 88 4 Steps (QC): 88 12 Steps (QC): 88 Picking up an Object (QC): 88 Wheel 50 feet with 2 turns (QC: 6 Wheel 150 feet: 6 PT Plan Problem List Problem List: Activity Tolerance, Functional Strength, Safety, Balance, Gait, Transfer, Bed Mobility, ROM Treatment/Plan Treatment Plan: Continue Plan of Care Treatment Plan: Bed Mobility, Education, Functional Activity Renny, Functional Strength, Group Therapy, Gait, Safety, Therapeutic Exercise, Transfers Treatment Duration: Feb 18, 2020 Frequency: At least 5 of 7 days/Wk (IRF) Estimated Hrs Per Day: 1.5 hours per day Patient and/or Family Agrees t: Yes Time/GCodes Time In: 915 Time Out: 1000 Total Billed Treatment Time: 45 Total Billed Treatment 1 visit GT (15') [facility] x 2 (30') ANGELA LAINEZ PT Mar 02, 2020 11:24
--- NOTE | 2020-03-02 11:45 | Speech Therapy Daily Note ---
Speech Daily Progress Note Subjective Date Seen by Provider: Mar 02, 2020 Time Seen by Provider: 00:30 Patient was resting in bed following her OT and PT session. Objective Patient completed a series of questions related to recall of information related to her return home with 90% given minimal cues. Assessment Assessment Current Status: Good Progress Treatment Plan Discontinue ST, Goals Met Speech Short Term Goals Short Term Goals Short Term Goals 1) Patient will follow/recall multi step directions for wheelchair mobility without cues at 90% or greater. 2) Patient will recall sequencing for daily activities without cues at 90% or greater. Speech Shelter Goals Platen Press Operator Goals Patient will demonstrate safety awareness with all daily activities and processes. Speech-Plan Patient/Family Goals Patient/Family Goals: Patient is discharging to her home tomorrow, 03/03/2020, where she lives with her Treatment Plan Speech Therapy Treatment Plan: Discontinue ST, Goals Met Treatment Duration: Mar 03, 2020 Frequency: 4 times per week (Patient will receive ST 4-5x per week) Estimated Hrs Per Day: .5 hour per day Rehab Potential: Fair Barriers to Learning: Patient's lengthy bout with COVID, cognitive deficits Pt/Family Agrees to Plan: Yes Safety Risks/Education Education Topics Provided: Continued safety upon her return home Time Speech Therapy Time In: 11:00 Speech Therapy Time Out: 11:30 Total Billed Time: 30 Billed Treatment Time 1, SLTS No QUALITY CODES: EXPRESSION OF IDEAS/WANTS: 4 UNDERSTANDING VERBAL CONTENT: 4 BRIEF INTERVIEW MENTAL STATUS: YES REPETITION OF 3 WORDS: 3 TEMPORAL ORIENTATION: YEAR: CORRECT, MONTH: CORRECT, DAY: CORRECT RECALL SOCK: YES, COLOR: YES, BED: YES WITH CUE MEMORY/RECALL ABILITY: SEASON, LOCATION OF ROOM, STAFF NAMES, THAT SHE IS IN THE HOSPITAL ROLANDO LANDIS Mar 02, 2020 11:44
--- NOTE | 2020-03-02 13:44 | Physical Therapy Daily Note ---
PT Daily Note-Current Subjective Pt presents reclined in bed upon arrival to room, agreeable to PT treatment, requests doing LE strengthening exercises. Pt reports pain in (R) knee, objective number not given. Appearance Following session, pt reclined in bed with call light & tray within reach, All needs met at this time, Mental Status Patient Orientation: Person, Place, Situation Attachments: Oxygen Transfers SCALE: Activities may be completed with or without assistive devices. 8-Xneuookztp-vizbmvx completes the activity by him/herself with no assistance from a helper. 5-Set-up or Clean-up Assistance-helper sets up or cleans up; patient completes activity. [place] assists only prior to or following the activity. 4-Supervision or Touching Assistance-helper provides verbal cues and/or touching/steadying and/or contact guard assistance as patient completes activit y. Assistance may be provided throughout the activity or intermittently. 3-Partial/Moderate Assistance-helper does LESS THAN HALF the effort. [place] lifts, holds or supports trunk or limbs, but provides less than half the effort. 2-Substantial/Maximal Assistance-helper does MORE THAN HALF the effort. [place] lifts or holds trunk or limbs and provides more than half the effort. 1-Zafyfdfzm-ipapvy does ALL the effort. Patient does none of the effort to complete the activity. Or, the assistance of 2 or more helpers is required for the patient to complete the activity. If activity was not attempted, code reason: 7-Patient Refused. 9-Not Applicable-not attempted and the patient did not perform the activity before the current illness, exacerbation or injury. 10-Not Attempted due to Environmental Limitations-(lack of equipment, weather restraints, etc.). 88-Not Attempted due to Medical Conditions or Safety Concerns. Weight Bearing Full Weight Bearing Full Weight Bearing Exercises Supine Ex: Bridging, Ankle pumps, Pelvic tilt, Quad Set, Lower trunk rotation, Heel Slides, Straight leg raise, Hip abd/add Supine Reps: 20 Assessment Current Status: Good Progress Pt tolerated well, but continues to be limited by (R) knee pain. PT Short Term Goals Short Term Goals Time Frame: Feb 04, 2020 Roll Left & Right: 4 Sit to lyin Lying to sitting on side of be: 3 Sit to stand: 3 Chair/cev-es-sgumu transfer: 3 Walk 10 feet: 3 PT Halfway Goals Spot Machine Operator Goals PT Halfway Goals Time Frame: Feb 18, 2020 Roll Left & Right (QC): 6 Sit to Lying (QC): 4 Lying-Sitting on Side/Bed(QC): 4 Sit to Stand (QC): 3 (Shelby) Chair/Fmp-zu-Lllqk Xfer(QC): 3 (Shelby) Toilet Transfer (QC): 3 (Shelby) Car Transfer (QC): 3 (Shelby) Does the Patient Walk: No and Walking Goal IS indicated Walk 10 feet (QC): 3 Walk 50ft with 2 Turns (QC): 3 Walk 150 ft (QC): 88 Walking 10ft on Uneven Surface: 88 1 Step (curb) (QC): 88 4 Steps (QC): 88 12 Steps (QC): 88 Picking up an Object (QC): 88 Wheel 50 feet with 2 turns (QC: 6 Wheel 150 feet: 6 PT Plan Problem List Problem List: Activity Tolerance, Functional Strength, Safety, Balance, Gait, Transfer, Bed Mobility, ROM Treatment/Plan Treatment Plan: Continue Plan of Care Treatment Plan: Bed Mobility, Education, Functional Activity Renny, Functional Strength, Group Therapy, Gait, Safety, Therapeutic Exercise, Transfers Treatment Duration: Feb 18, 2020 Frequency: At least 5 of 7 days/Wk (IRF) Estimated Hrs Per Day: 1.5 hours per day Patient and/or Family Agrees t: Yes Time/GCodes Time In: 1235 Time Out: 1255 Total Billed Treatment Time: 20 Total Billed Treatment 1 visit EX (20') ANGELA LAINEZ PT Mar 02, 2020 13:44
--- NOTE | 2020-03-02 15:55 | NUR ---
PATIENT QUALIFIES FOR 2L WHILE AT REST AND 3L WHILE AMBULATORY Addendum: 03/02/20 at 1555 by DAVID MENDEZ RT Amended: Links added.
[2020-03-02 18:00] VITALS: BP_SYST 127; BP_SYST 147; BP_DIAS 67; BP_DIAS 83
[2020-03-02] MEDS: SERTRALINE 50 MG (ZOLOFT) TABLET PO SCH (20:12)
[2020-03-02] MEDS: PRAMIPEXOLE 0.125 MG (MIRAPEX) TABLET PO SCH (20:13)
[2020-03-02] MEDS ORDERED: SERT50TA9 PO (21:36)
[2020-03-02] MEDS ORDERED: OXC5T PO (21:36)
[2020-03-02] MEDS ORDERED: ALPR0.254 PO (21:36)
[2020-03-02] MEDS ORDERED: PANT40TA52 PO (21:36)
[2020-03-02] MEDS ORDERED: CYAN-41 PO (21:36)
--- NOTE | 2020-03-02 21:38 | D/C HH Face to Face Order ---
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 Patient Data-Allergies,Ht & Wt Patient Allergies: Coded Allergies: Sulfa (Sulfonamide Antibiotics) (Verified Allergy, Unknown, 01/28/20) amoxicillin (Verified Allergy, Unknown, 01/28/20) clavulanic acid (Verified Allergy, Unknown, 01/28/20) codeine (Verified Allergy, Unknown, 01/28/20) diazepam (Verified Allergy, Unknown, 01/28/20) hydrocodone (Verified Allergy, Unknown, 01/28/20) iodine (Verified Allergy, Unknown, 01/28/20) sulfamethoxazole (Verified Allergy, Unknown, 01/28/20) trimethoprim (Verified Allergy, Unknown, 01/28/20) Uncoded Allergies: MSG (Adverse Reaction, Severe, Diarrhea, 01/28/20) abdominal cramping, severe diarrhea Home Health Need/Face to Face Date of Face to Face: Mar 02, 2020 Clinical Findings: Generalized weakness and fatigue, Instability, Muscle w eakness, Pain with ambulation, Shortness of breath, Unsteady gait I have seen Pt [id number]: Yes Discharged To: Home Diagnosis/Conditions: 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 Pt req the following assistanc: Walker, Wheelchair Home Health Nursing Orders Home Health Services Order: Nursing Services, Electrical Foreman-Evaluate & Treat, Physical Therapy-Evaluate & Treat Home Health Infusion Therapy Line Start Date: Feb 03, 2020 Certify Stmt I certify that this patient is under my care and that I, a nurse practitioner or a physician; a cleaner assistant working with me, had a face to face encounter that - meets the physician face to face encounter requirements with this patient as dated. JARRELL HURD DO Mar 02, 2020 21:38
[2020-03-03 06:05] VITALS: BP 142/67
--- NOTE | 2020-03-03 09:52 | Discharge Summary ---
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 Grave's disease Anxiety Severe right knee pain from OA chronic Plan: IRF protocol Wean O2 Pain meds BM regimen 01/29/20: Restart Tapazole 5mg daily Knee injection by ortho will be pursued tomorrow O2 01/30/20: Right knee injection will be requested from Dr Dent Pain meds Tapazole O2 01/31/20: Knee injection not performed due to COVID related risk Monitor O2 Midline and Venofer 02/01/20: Monitor closely O2 wean IRF protocol 02/01/30: Monitor O2 Aggressive therapy 02/03/20: Stood with assist and parallel bars today Improved status IV Venofer after PICC changed 02/04/20: Monitor O2 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 02/05/20: O2 Mobic Home meds 02/06/20: DC PICC since it simply did not function properly O2 02/07/20: Monitor closely O2 wean Sit to stand 02/08/20: Participation good Monitor pain 02/09/20: Sit to stand Continue therapy 02/10/20: Labs reviewed Monitor illness closely 02/11/20: Monitor closely Pain control right knee 02/12/20: Monitor right knee pain O2 Increase activity 02/13/20: Imodium prn Sit to stand Right knee pain 02/14/20: Monitor closely Monitor pain 02/15/20: Family education with sit to stand to see if home is an option 02/17/20: Monitor ambulation Rash treatment 02/18/20: Continue treatment O2 wean 02/19/20: Monitor O2 Pain management 02/20/20: Check labs in am Monitor BP 02/21/20: Labs reviewed Improved status Hemoglobin normal now 02/22/20/: Monitor O2 Increase ambulation 02/23/20: RIght knee injection, appreciate Dr Dent Monitor ambulation DC late next week 02/24/20: Improved knee pain will enable her to ambulate better Home late next week 02/25/20: Dramatic improvement Ambulate 02/26/20: Monitor BP Monitor pain 02/27/20: DC Friday Patient tends to be somatic 02/28/20: DC Friday Monitor closely 02/29/20: DME discussed Monitor closely 03/01/20: Wean O2 Monitor right knee pain DC Friday03/02/20: DC tomorrow Home O2 eval (1) Myopathy (2) COVID-19 (3) GERD (gastroesophageal reflux disease) (4) Hypoxia (5) HX: breast cancer (6) Anxiety (7) Depression Discharge Summary Discharge Physical Examination Allergies: Coded Allergies: Sulfa (Sulfonamide Antibiotics) (Verified Allergy, Unknown, 01/28/20) amoxicillin (Verified Allergy, Unknown, 01/28/20) clavulanic acid (Verified Allergy, Unknown, 01/28/20) codeine (Verified Allergy, Unknown, 01/28/20) diazepam (Verified Allergy, Unknown, 01/28/20) hydrocodone (Verified Allergy, Unknown, 01/28/20) iodine (Verified Allergy, Unknown, 01/28/20) sulfamethoxazole (Verified Allergy, Unknown, 01/28/20) trimethoprim (Verified Allergy, Unknown, 01/28/20) Uncoded Allergies: MSG (Adverse Reaction, Severe, Diarrhea, 01/28/20) abdominal cramping, severe diarrhea Vitals & I&Os Vital Signs Date Time Temp Pulse Resp B/P (MAP) Pulse Ox O2 Delivery O2 Flow Rate FiO2 03/03/20 11:30 36.7 73 20 142/67 95 Nasal Cannula 2.00 General Appearance: Alert, Oriented X3, Cooperative Respiratory: Clear to Auscultation Cardiovascular: Regular Rate Psych/Mental Status: Mental Status NL Hospital Course Was the Problem List Reviewed?: Yes Hospital course; patient had a lengthy IRF course for 37 days after arriving from [place] and in need of aggressive therapy s/p COVID critical illness. Patient had slow recovery especially respiratory insuff complicating issues along with severe right knee pain which ultimately improved after injection. O2 was weaned to 1-2 L/min. Pain management was maintained along with bowel regimen. Home meds maintained along with MDI's and close monitoring of vitals. Overall she was able to regain function and return home with live independently and was deemed stable for DC. Labs (last 24 hrs) Laboratory Tests 01/29/20 06:25: Sodium Level 141, Potassium Level 4.4, Chloride Level 108H, Carbon Dioxide Level 22, Anion Gap 11, Blood Urea Nitrogen 7, Creatinine 0.66, Estimat Glomerular Filtration Rate > 60, BUN/Creatinine Ratio 11, Glucose Level 96, Calcium Level 8.9, Corrected Calcium 9.8, Total Bilirubin 0.6, Aspartate Amino Transf (AST/SGOT) 26, Alanine Aminotransferase (ALT/SGPT) 12, Alkaline Phosphatase 27L, Total Protein 5.1L, Albumin 2.9L 01/29/20 07:59: White Blood Count 7.4, Red Blood Count 3.18L, Hemoglobin 9.1L, Hematocrit 32L, Mean Corpuscular Volume 99, Mean Corpuscular Hemoglobin 29, Mean Corpuscular Hemoglobin Concent 29L, Red Cell Distribution Width 15.6H, Platelet Count 304, Mean Platelet Volume 10.2, Immature Granulocyte % (Auto) 0, Neutrophils (%) (Auto) 70, Lymphocytes (%) (Auto) 17, Monocytes (%) (Auto) 9, Eosinophils (%) (Auto) 3, Basophils (%) (Auto) 1, Neutrophils # (Auto) 5.2, Lymphocytes # (Auto) 1.3, Monocytes # (Auto) 0.7, Eosinophils # (Auto) 0.2, Basophils # (Auto) 0.1, Immature Granulocyte # (Auto) 0.0, Iron Level 32L, Thyroid Stimulating Hormone (TSH) 1.56, Free Thyroxine 1.08 02/01/20 21:12: Glucometer 114H 02/07/20 05:29: Sodium Level 143, Potassium Level 3.9, Chloride Level 110H, Carbon Dioxide Level 26, Anion Gap 7, Blood Urea Nitrogen 9, Creatinine 0.73, Estimat Glomerular Filtration Rate > 60, BUN/Creatinine Ratio 12, Glucose Level 88, Calcium Level 10.1, Corrected Calcium 10.9H, Total Bilirubin 0.3, Aspartate Amino Transf ( AST/SGOT) 11, Alanine Aminotransferase (ALT/SGPT) 7, Alkaline Phosphatase 28L, Total Protein 5.3L, Albumin 3.0L, White Blood Count 5.8, Red Blood Count 3.13L, Hemoglobin 9.0L, Hematocrit 31L, Mean Corpuscular Volume 99, Mean Corpuscular Hemoglobin 29, Mean Corpuscular Hemoglobin Concent 29L, Red Cell Distribution Width 17.4H, Platelet Count 257, Mean Platelet Volume 10.8, Immature Granulocyte % (Auto) 1, Neutrophils (%) (Auto) 64, Lymphocytes (%) (Auto) 24, Monocytes (%) (Auto) 7, Eosinophils (%) (Auto) 3, Basophils (%) (Auto) 1, Neutrophils # (Auto) 3.8, Lymphocytes # (Auto) 1.4, Monocytes # (Auto) 0.4, Eosinophils # (Auto) 0.2, Basophils # (Auto) 0.0, Immature Granulocyte # (Auto) 0.1 02/10/20 08:12: White Blood Count 6.6, Red Blood Count 3.52L, Hemoglobin 10.3L, Hematocrit 36, Mean Corpuscular Volume 103H, Mean Corpuscular Hemoglobin 29, Mean Corpuscular Hemoglobin Concent 29L, Red Cell Distribution Width 18.8H, Platelet Count 233, Mean Platelet Volume 10.9, Immature Granulocyte % (Auto) 1, Neutrophils (%) (Auto) 73, Lymphocytes (%) (Auto) 15, Monocytes (%) (Auto) 7, Eosinophils (%) (Auto) 3, Basophils (%) (Auto) 1, Neutrophils # (Auto) 4.9, Lymphocytes # (Auto) 1.0, Monocytes # (Auto) 0.5, Eosinophils # (Auto) 0.2, Basophils # (Auto) 0.0, Immature Granulocyte # (Auto) 0.1, Sodium Level 142, Potassium Level 3.8, Chloride Level 108H, Carbon Dioxide Level 24, Anion Gap 10, Blood Urea Nitrogen 12, Creatinine 0.72, Estimat Glomerular Filtration Rate > 60, BUN/Creatinine Ratio 17, Glucose Level 123H, Lactic Acid Level 1.92, Calcium Level 10.2H, Corrected Calcium 10.8H, Total Bilirubin 0.3, Aspartate Amino Transf (AST/SGOT) 12, Alanine Aminotransferase (ALT/SGPT) 6, Alkaline Phosphatase 34L, Total Protein 5.8L, Albumin 3.3, Procalcitonin 0.34H 02/12/20 10:43: Glucometer 86 02/14/20 06:07: White Blood Count 5.3, Red Blood Count 3.33L, Hemoglobin 9.7L, Hematocrit 34L, Mean Corpuscular Volume 101H, Mean Corpuscular Hemoglobin 29, Mean Corpuscular Hemoglobin Concent 29L, Red Cell Distribution Width 18.4H, Platelet Count 215, Mean Platelet Volume 10.7, Immature Granulocyte % (Auto) 0, Neutrophils (%) (Auto) 64, Lymphocytes (%) (Auto) 22, Monocytes (%) (Auto) 9, Eosinophils (%) (Auto) 5, Basophils (%) (Auto) 1, Neutrophils # (Auto) 3.4, Lymphocytes # (Auto) 1.2, Monocytes # (Auto) 0.5, Eosinophils # (Auto) 0.2, Basophils # (Auto) 0.0, Immature Granulocyte # (Auto) 0.0, Sodium Level 144, Potassium Level 3.9, Chloride Level 112H, Carbon Dioxide Level 25, Anion Gap 7, Blood Urea Nitrogen 10, Creatinine 0.63, Estimat Glomerular Filtration Rate > 60, BUN/Creatinine Ratio 16, Glucose Level 83, Calcium Level 9.2, Corrected Calcium 10.0, Total Bilirubin 0.3, Aspartate Amino Transf (AST/SGOT) 13, Alanine Aminotransferase (ALT/SGPT) < 6, Alkaline Phosphatase 32L, Total Protein 5.5L, Albumin 3.0L 02/21/20 06:42: White Blood Count 5.7, Red Blood Count 4.27, Hemoglobin 12.6, Hematocrit 42, Mean Corpuscular Volume 98, Mean Corpuscular Hemoglobin 30, Mean Corpuscular Hemoglobin Concent 30L, Red Cell Distribution Width 17.9H, Platelet Count 183, Mean Platelet Volume 10.9, Immature Granulocyte % (Auto) 0, Neutrophils (%) (Auto) 71, Lymphocytes (%) (Auto) 16, Monocytes (%) (Auto) 8, Eosinophils (%) (Auto) 5, Basophils (%) (Auto) 1, Neutrophils # (Auto) 4.0, Lymphocytes # (Auto) 0.9L, Monocytes # (Auto) 0.4, Eosinophils # (Auto) 0.3, Basophils # (Auto) 0.0, Immature Granulocyte # (Auto) 0.0, Sodium Level 142, Potassium Level 4.1, Chloride Level 107, Carbon Dioxide Level 25, Anion Gap 10, Blood Urea Nitrogen 9, Creatinine 0.64, Estimat Glomerular Filtration Rate > 60, BUN/Creatinine Ratio 14, Glucose Level 93, Calcium Level 9.9, Corrected Calcium 10.3H, Total Bilirubin 0.3, Aspartate Amino Transf (AST/SGOT) 14, Alanine Aminotransferase (ALT/SGPT) 7, Alkaline Phosphatase 30L, Total Protein 6.1L, Albumin 3.5 02/28/20 04:30: Sodium Level 141, Potassium Level 4.5, Chloride Level 109H, Carbon Dioxide Level 24, Anion Gap 8, Blood Urea Nitrogen 12, Creatinine 0.72, Estimat Glomerular Filtration Rate > 60, BUN/Creatinine Ratio 17, Glucose Level 87, Calcium Level 9.5, Corrected Calcium 10.1, Total Bilirubin 0.3, Aspartate Amino Transf (AST/SGOT) 8, Alanine Aminotransferase (ALT/SGPT) < 6, Alkaline Phosphatase 26L, Total Protein 5.6L, Albumin 3.3 02/28/20 05:10: White Blood Count 5.5, Red Blood Count 3.69L, Hemoglobin 10.9L, Hematocrit 36, Mean Corpuscular Volume 98, Mean Corpuscular Hemoglobin 30, Mean Corpuscular Hemoglobin Concent 30L, Red Cell Distribution Width 16.9H, Platelet Count 159, Mean Platelet Volume 11.3, Immature Granulocyte % (Auto) 0, Neutrophils (%) (Auto) 63, Lymphocytes (%) (Auto) 21, Monocytes (%) (Auto) 8, Eosinophils (%) (Auto) 7, Basophils (%) (Auto) 1, Neutrophils # (Auto) 3.5, Lymphocytes # (Auto) 1.2, Monocytes # (Auto) 0.4, Eosinophils # (Auto) 0.4H, Basophils # (Auto) 0.0, Immature Granulocyte # (Auto) 0.0 Microbiology 02/10/20 C. difficile GDH Antigen & Toxins - Final, Complete Pending Labs Microbiology Date/Time Source Procedure Growth Status 02/10/20 07:50 Stool C. difficile GDH Antigen & Toxins - Final Complete Laboratory Tests 01/29/20 06:25: Sodium Level 141, Potassium Level 4.4, Chloride Level 108, Carbon Dioxide Level 22, Anion Gap 11, Blood Urea Nitrogen 7, Creatinine 0.66, Estimat Glomerular Filtration Rate > 60, BUN/Creatinine Ratio 11, Glucose Level 96, Calcium Level 8.9, Corrected Calcium 9.8, Total Bilirubin 0.6, Aspartate Amino Transf (AST/SGOT) 26, Alanine Aminotransferase (ALT/SGPT) 12, Alkaline Phosphatase 27, Total Protein 5.1, Albumin 2.9 01/29/20 07:59: White Blood Count 7.4, Red Blood Count 3.18, Hemoglobin 9.1, Hematocrit 32, Mean Corpuscular Volume 99, Mean Corpuscular Hemoglobin 29, Mean Corpuscular Hemoglobin Concent 29, Red Cell Distribution Width 15.6, Platelet Count 304, Mean Platelet Volume 10.2, Immature Granulocyte % (Auto) 0, Neutrophils (%) (Auto) 70, Lymphocytes (%) (Auto) 17, Monocytes (%) (Auto) 9, Eosinophils (%) (Auto) 3, Basophils (%) (Auto) 1, Neutrophils # (Auto) 5.2, Lymphocytes # (Auto) 1.3, Monocytes # (Auto) 0.7, Eosinophils # (Auto) 0.2, Basophils # (Auto) 0.1, Immature Granulocyte # (Auto) 0.0, Iron Level 32, Thyroid Stimulating Hormone (TSH) 1.56, Free Thyroxine 1.08 02/01/20 21:12: Glucometer 114 02/07/20 05:29: Sodium Level 143, Potassium Level 3.9, Chloride Level 110, Carbon Dioxide Level 26, Anion Gap 7, Blood Urea Nitrogen 9, Creatinine 0.73, Estimat Glomerular Filtration Rate > 60, BUN/Creatinine Ratio 12, Glucose Level 88, Calcium Level 10.1, Corrected Calcium 10.9, Total Bilirubin 0.3, Aspartate Amino Transf (AST/SGOT) 11, Alanine Aminotransferase (ALT/SGPT) 7, Alkaline Phosphatase 28, Total Protein 5.3, Albumin 3.0, White Blood Count 5.8, Red Blood Count 3.13, Hemoglobin 9.0, Hematocrit 31, Mean Corpuscular Volume 99, Mean Corpuscular Hemoglobin 29, Mean Corpuscular Hemoglobin Concent 29, Red Cell Distribution Width 17.4, Platelet Count 257, Mean Platelet Volume 10.8, Immature Granulocyte % (Auto) 1, Neutrophils (%) (Auto) 64, Lymphocytes (%) (Auto) 24, Monocytes (%) (Auto) 7, Eosinophils (%) (Auto) 3, Basophils (%) (Auto) 1, Neutrophils # (Auto) 3.8, Lymphocytes # (Auto) 1.4, Monocytes # (Auto) 0.4, Eosinophils # (Auto) 0.2, Basophils # (Auto) 0.0, Immature Granulocyte # (Auto) 0.1 02/10/20 08:12: White Blood Count 6.6, Red Blood Count 3.52, Hemoglobin 10.3, Hematocrit 36, Mean Corpuscular Volume 103, Mean Corpuscular Hemoglobin 29, Mean Corpuscular Hemoglobin Concent 29, Red Cell Distribution Width 18.8, Platelet Count 233, Mean Platelet Volume 10.9, Immature Granulocyte % (Auto) 1, Neutrophils (%) (Auto) 73, Lymphocytes (%) (Auto) 15, Monocytes (%) (Auto) 7, Eosinophils (%) (Auto) 3, Basophils (%) (Auto) 1, Neutrophils # (Auto) 4.9, Lymphocytes # (Auto) 1.0, Monocytes # (Auto) 0.5, Eosinophils # (Auto) 0.2, Basophils # (Auto) 0.0, Immature Granulocyte # (Auto) 0.1, Sodium Level 142, Potassium Level 3.8, Chloride Level 108, Carbon Dioxide Level 24, Anion Gap 10, Blood Urea Nitrogen 12, Creatinine 0.72, Estimat Glomerular Filtration Rate > 60, BUN/Creatinine Ratio 17, Glucose Level 123, Lactic Acid Level 1.92, Calcium Level 10.2, Correct ed Calcium 10.8, Total Bilirubin 0.3, Aspartate Amino Transf (AST/SGOT) 12, Alanine Aminotransferase (ALT/SGPT) 6, Alkaline Phosphatase 34, Total Protein 5.8, Albumin 3.3, Procalcitonin 0.34 02/12/20 10:43: Glucometer 86 02/14/20 06:07: White Blood Count 5.3, Red Blood Count 3.33, Hemoglobin 9.7, Hematocrit 34, Mean Corpuscular Volume 101, Mean Corpuscular Hemoglobin 29, Mean Corpuscular Hemoglobin Concent 29, Red Cell Distribution Width 18.4, Platelet Count 215, M art Platelet Volume 10.7, Immature Granulocyte % (Auto) 0, Neutrophils (%) (Auto) 64, Lymphocytes (%) (Auto) 22, Monocytes (%) (Auto) 9, Eosinophils (%) (Auto) 5, Basophils (%) (Auto) 1, Neutrophils # (Auto) 3.4, Lymphocytes # (Auto) 1.2, Monocytes # (Auto) 0.5, Eosinophils # (Auto) 0.2, Basophils # (Auto) 0.0, Immature Granulocyte # (Auto) 0.0, Sodium Level 144, Potassium Level 3.9, Chloride Level 112, Carbon Dioxide Level 25, Anion Gap 7, Blood Urea Nitrogen 10, Creatinine 0.63, Estimat Glomerular Filtration Rate > 60, BUN/Creatinine Ratio 16, Glucose Level 83, Calcium Level 9.2, Corrected Calcium 10.0, Total Bilirubin 0.3, Aspartate Amino Transf (AST/SGOT) 13, Alanine Aminotransferase (ALT/SGPT) < 6, Alkaline Phosphatase 32, Total Protein 5.5, Albumin 3.0 02/21/20 06:42: White Blood Count 5.7, Red Blood Count 4.27, Hemoglobin 12.6, Hematocrit 42, Mean Corpuscular Volume 98, Mean Corpuscular Hemoglobin 30, Mean Corpuscular Hemoglobin Concent 30, Red Cell Distribution Width 17.9, Platelet Count 183, Mean Platelet Volume 10.9, Immature Granulocyte % (Auto) 0, Neutrophils (%) (Auto) 71, Lymphocytes (%) (Auto) 16, Monocytes (%) (Auto) 8, Eosinophils (%) (Auto) 5, Basophils (%) (Auto) 1, Neutrophils # (Auto) 4.0, Lymphocytes # (Auto) 0.9, Monocytes # (Auto) 0.4, Eosinophils # (Auto) 0.3, Basophils # (Auto) 0.0, Immature Granulocyte # (Auto) 0.0, Sodium Level 142, Potassium Level 4.1, Chloride Level 107, Carbon Dioxide Level 25, Anion Gap 10, Blood Urea Nitrogen 9, Creatinine 0.64, Estimat Glomerular Filtration Rate > 60, BUN/Creatinine Ratio 14, Glucose Level 93, Calcium Level 9.9, Corrected Calcium 10.3, Total Bilirubin 0.3, Aspartate Amino Transf (AST/SGOT) 14, Alanine Aminotransferase (ALT/SGPT) 7, Alkaline Phosphatase 30, Total Protein 6.1, Albumin 3.5 02/28/20 04:30: Sodium Level 141, Potassium Level 4.5, Chloride Level 109, Carbon Dioxide Level 24, Anion Gap 8, Blood Urea Nitrogen 12, Creatinine 0.72, Estimat Glomerular Filtration Rate > 60, BUN/Creatinine Ratio 17, Glucose Level 87, Calcium Level 9.5, Corrected Calcium 10.1, Total Bilirubin 0.3, Aspartate Amino Transf (AST/SGOT) 8, Alanine Aminotransferase (ALT/SGPT) < 6, Alkaline Phosphatase 26, Total Protein 5.6, Albumin 3.3 02/28/20 05:10: White Blood Count 5.5, Red Blood Count 3.69, Hemoglobin 10.9, Hematocrit 36, Mean Corpuscular Volume 98, Mean Corpuscular Hemoglobin 30, Mean Corpuscular Hemoglobin Concent 30, Red Cell Distribution Width 16.9, Platelet Count 159, Mean Platelet Volume 11.3, Immature Granulocyte % (Auto) 0, Neutrophils (%) (Auto) 63, Lymphocytes (%) (Auto) 21, Monocytes (%) (Auto) 8, Eosinophils (%) (Auto) 7, Basophils (%) (Auto) 1, Neutrophils # (Auto) 3.5, Lymphocytes # (Auto) 1.2, Monocytes # (Auto) 0.4, Eosinophils # (Auto) 0.4, Basophils # (Auto) 0.0, Immature Granulocyte # (Auto) 0.0 Discharge Home Medications: Active Scripts Active Vitamin B-12 (Cyanocobalamin (Vitamin B-12)) 1,000 Mcg Tablet 1,000 Mcg PO DAILY Pantoprazole Sodium 40 Mg Tablet.dr 40 Mg PO BID Sertraline HCl 50 Mg Tablet 50 Mg PO HS Take along with 100mg to equal 150mg daily Oxyir Tablet (Oxycodone HCl) 5 Mg Tab 5 Mg PO Q4HR PRN ALPRAZolam 0.25 Mg Tablet 0.25 Mg PO BID Reported Tylenol Arthritis (Acetaminophen) 650 Mg Tablet.er 650 Mg PO TID Methimazole 5 Mg Tablet 5 Mg PO DAILY Vitamin C (Ascorbic Acid) 500 Mg Capsule 500 Mg PO DAILY Colestipol HCl 1 Gm Tablet 1 Gm PO BID Olmesartan Medoxomil 40 Mg Tablet 40 Mg PO DAILY Premarin (Estrogens Conjugated) 30 Gm Cr 1 Applic TP WEEK Sertraline HCl 100 Mg Tablet 100 Mg PO DAILY Meloxicam 15 Mg Tablet 15 Mg PO DAILY Pramipexole Dihydrochloride (Pramipexole Di-HCl) 0.25 Mg Tablet 0.25 Mg PO HS Neurontin (Gabapentin) 600 Mg Tablet 600 Mg PO TID Senna S Tablet (Sennosides/Docusate Sodium) 1 Each Tablet 1 Each PO DAILY PRN Vitamin D3 (Cholecalciferol (Vitamin D3)) 125 Mcg Tablet 125 Mcg PO DAILY Procardia Xl (Nifedipine) 30 Mg Tab.er.24 30 Mg PO DAILY Lidocaine 5% Patch (Lidocaine) 1 Each Adh..patch 1 Each TP Q12H MDD 2 APPLY TO RIGHT KNEE FOR UP TO 12 HOURS PER DAY Acidophilus-Pectin Capsule (Lactobacillus Acidophilus/Pect) 1 Each Capsule 2 Each PO BID Instructions to patient/family Please see electronic discharge instructions given to patient. Diagnosis/Problems Diagnosis/Problems (1) Myopathy (2) COVID-19 (3) GERD (gastroesophageal reflux disease) (4) Hypoxia (5) HX: breast cancer (6) Anxiety (7) Depression Clinical Quality Measures DVT/VTE Risk/Contraindication: Risk Factor Score Per Nursin RFS Level Per Nursing on Admit: 4+=Very High JARRELL HURD DO Mar 03, 2020 09:52
[2020-03-03] MEDS: CYANOCOBALAMIN 1,000 MCG (VITAMIN B-12) TABLET PO SCH (10:03)
[2020-03-03] MEDS: VITAMIN D3 125 MCG (5,000 UNITS) CAPSULE PO SCH (10:03)
--- NOTE | 2020-03-03 10:03 | Therapy Team Discharge Summary ---
Therapy Discharge Summary Discharge Recommendations Date of Discharge 03/03/2020 Physical Therapy This patient admitted to ARU from an acute care hospital with dx of critical care myopathy post COVID. Prior to her lengthy acute hospital stay, she was indep living at home with her . She was active and a community ambulator. Upon admission to this unit, she was min assist with bed mobility but max to dependent with transfers and was unable to ambulate due to gross functional weakness; she required min assist with short wc distances. Functional weakness and oxygen saturation drops limited activity iniitally. Treatment has consisted of functional strength training, balance, bed mobility, transfer and gait progression with wc mobility training, family training and work to increase her functional activity toelrance. In addition, much education has been provided on continued rehab process as well as management/safety of oxygen tubing. Pt has met or exceeded all goals set at evaluation and feels ready for discharge home with follow up [facility] PT services. She has made excellent progress but remains at a supervision level grossly for mobility. She is an excellent candidate for continued skilled therapy intervnetion to further increase her level of indep and safety at home. Pt to discharge this date. Occupational Therapy Decreased Activ Tolerance, Impaired Funct Balance PT Detention Goals Detention Goals PT Detention Goals Time Frame: Feb 18, 2020 Roll Left to Right (QC): 6 (met) Sit to Lying (QC): 4 (met) Lying-Sitting on Side/Bed(QC): 4 (met) Sit to Stand (QC): 3 (Shelby) Chair/Anp-fb-Drqyt Xfer(QC): 3 (Shelby) Car Transfer (QC): 3 (Shelby) Does the Patient Walk: No and Walking Goal IS indicated Walk 10 feet (QC): 3 (exceeded) Walk 10ft-Uneven Surface(QC): 88 Walk 50ft with 2 Turns (QC): 3 (exceeded) Walk 150 ft (QC): 88 Wheel 50 feet with 2 turns (QC: 6 (scored 5) 1 Step (curb) (QC): 88 4 Steps (QC): 88 12 Steps (QC): 88 Picking up an Object (QC): 88 Goals met or exceeded. OT Fisher Spear Goals Detention Goals Time Frame: Mar 10, 2020 Eating (QC): 6 Oral Hygiene (QC): 6 Shower/Bathe Self (QC): 6 Upper Body Dressing (QC): 6 Lower Body Dressing (QC): 6 On/Off Footwear (QC): 6 Toileting Hygiene (QC): 6 Toilet/Commode Transfer (QC): 3 (Shelby) Additional Goals: 1-Demonstrate ADL Tasks, 2-Verbalize Understanding, 3- ImproveStrength/Renny 1=Demonstrate adherence to instructed precautions during ADL tasks. 2=Patient will verbalize/demonstrate understanding of assistive devices/modifications for ADL. 3=Patient will improve strength/tolerance for activity to enable patient to perform ADL's. Speech Detention Goals Detention Goals Patient will demonstrate safety awareness with all daily activities and processes. DENI BLACKMAN PT Mar 03, 2020 10:03
[2020-03-03] MEDS: ALPRAZolam 0.25 MG (XANAX) TAB PO SCH (10:04)
[2020-03-03] MEDS: ASCORBIC ACID (VIT C) 500 MG TABLET PO SCH (10:04)
[2020-03-03] MEDS: NIFEdipine ER 30 MG (PROCARDIA XL) TAB PO SCH (10:04)
[2020-03-03] MEDS: VALSARTAN 160 MG (DIOVAN) TABLET PO SCH (10:04)
[2020-03-03] MEDS: PANTOPRAZOLE 40 MG (PROTONIX) TAB PO SCH (10:05)
[2020-03-03] MEDS: SERTRALINE 100 MG (ZOLOFT) TAB PO SCH (10:05)
[2020-03-03] MEDS: METHIMAZOLE 5 MG PO SCH (10:05)
[2020-03-03] MEDS: LACTOBACILLUS ACIDOPHILUS (PROBIOTIC) CAPSULE PO SCH (10:05)
[2020-03-03] MEDS: LIDOCAINE 4% (SALONPAS) PATCH TP SCH (10:06)
[2020-03-03] MEDS: GABAPENTIN 300 MG (NEURONTIN) CAP PO SCH (10:06)
[2020-03-03] MEDS: MELOXICAM 7.5 MG (MOBIC) TABLET PO SCH (10:06)
[2020-03-03] MEDS: ENOXAPARIN 40 MG/0.4 ML (LOVENOX) SYR SC SCH (10:07)
[2020-03-03] MEDS: amLODIPine 5 MG (NORVASC) TAB PO SCH (10:10)
[2020-03-03] MEDS: ARTHRITIS PAIN RELIEF PO SCH (10:11)
[2020-03-03] MEDS: SILDENAFIL 20 MG (REVATIO) TAB NON-FORMULARY PO SCH (10:11)
[2020-03-03] MEDS: DICLOFENAC 1% GEL 100 GM (VOLTAREN) TUBE TOP SCH (10:13)
[2020-03-03] MEDS: MICONAZOLE 2% POWDER (DESENEX AF) 90 GM TOP SCH (10:13)
[2020-03-03 11:30] VITALS: BP 142/67
--- NOTE | 2020-03-03 11:30 | NUR ---
Pt discharged home w assist of & family, accomp by & son today. Pt eager & pleased to be going home, denies any problems or issues.
--- NOTE | 2020-03-03 12:14 | NUR ---
CM/SS DISCHARGE Patient discharged home after being hospitalized continuously since December 11, 2019, via transport by her spouse and son. DME: [employer] [facility] delivered portable home O2 and wheelchair to patient hospital room as coordinated. They will deliver the concentrator to her home once she is there. HHC: Finalized with [facility] and spoke with Linda gee who confirmed receipt. IMM2 presented, discussed, signed, charted. Patient discharge has been finalized over the past week, no intention to appeal voiced. Unit RN updated fully about all timelines.
--- NOTE | 2020-03-03 15:32 | NUR ---
Call placed to Dr. Prosper Faith's office in [place], [place] [phone], & notified that pt was discharged home today. Spoke carey Winter. He stated that he will call pt at home & make follow-up appt in office for pt. Addendum: 03/03/20 at 1538 by ALEM WU RN This is pt's PCP
--- NOTE | 2020-03-06 11:28 | Therapy Team Discharge Summary ---
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 At [facility], pt was independent with all ADLS and functional mobility, without AD/AE. Upon evaluation, pt was independent with eating and required set up assistance with oral care, max A showering, min A upper body dressing, total assist lower body dressing, total assist footwear and total assist toileting. OT txs focus on increasing independence and safety with ADLS and functional mobility, and increasing functional strength and endurance in BUEs. At discharge pt was independent with eating, oral care, and toileting and required set up assistance wtih showering, upper/lower body dressing, and footwear. Pt made good progress towards goals, meeting LTG of eating, oral care and toileting. Pt discharged from facility, thus d/c from OT. Decreased Activ Tolerance, Impaired Funct Balance PT Senior Care Goals Button Breaker Operator Goals PT Senior Care Goals Time Frame: Feb 18, 2020 Roll Left to Right (QC): 6 (met) Sit to Lying (QC): 4 (met) Lying-Sitting on Side/Bed(QC): 4 (met) Sit to Stand (QC): 3 (Shelby) Chair/Svm-lb-Ixmhy Xfer(QC): 3 (Shelby) Car Transfer (QC): 3 (Shelby) Does the Patient Walk: No and Walking Goal IS indicated Walk 10 feet (QC): 3 (exceeded) Walk 10ft-Uneven Surface(QC): 88 Walk 50ft with 2 Turns (QC): 3 (exceeded) Walk 150 ft (QC): 88 Wheel 50 feet with 2 turns (QC: 6 (scored 5) 1 Step (curb) (QC): 88 4 Steps (QC): 88 12 Steps (QC): 88 Picking up an Object (QC): 88 OT Button Breaker Operator Goals Button Breaker Operator Goals Time Frame: Mar 10, 2020 Eating (QC): 6 (met) Oral Hygiene (QC): 6 (met) Shower/Bathe Self (QC): 6 (not met, set up) Upper Body Dressing (QC): 6 (not met, set up) Lower Body Dressing (QC): 6 (not met, set up) On/Off Footwear (QC): 6 (not met, set up) Toileting Hygiene (QC): 6 (met) Toilet/Commode Transfer (QC): 3 (met) Additional Goals: 1-Demonstrate ADL Tasks, 2-Verbalize Understanding, 3- ImproveStrength/Renny 1=Demonstrate adherence to instructed precautions during ADL tasks. 2=Patient will verbalize/demonstrate understanding of assistive devices/modifications for ADL. 3=Patient will improve strength/tolerance for activity to enable patient to perform ADL's. Speech Senior Care Goals Button Breaker Operator Goals Patient will demonstrate safety awareness with all daily activities and processes. ISIDRO MACIEL OT Mar 06, 2020 11:28
== END 2020-03-03 11:30 | disposition home health service (06) | DRG 92 ==
PROVIDERS: ADMIT Internal Medicine; ATTEND Internal Medicine
PROC: 3E0U33Z Introduction of Anti-inflammatory into Joints, Percutaneous Approach (ICD-10-PCS; principal; 2020-02-23)
DX: G72.81 Critical illness myopathy (principal); I50.32 Chronic diastolic (congestive) heart failure; I47.1 Supraventricular tachycardia; B94.8 Sequelae of other specified infectious and parasitic diseases; Z87.01 Personal history of pneumonia (recurrent); I11.0 Hypertensive heart disease with heart failure; M17.11 Unilateral primary osteoarthritis, right knee; E66.9 Obesity, unspecified; Z68.36 Body mass index [BMI] 36.0-36.9, adult; E05.00 Thyrotoxicosis with diffuse goiter without thyrotoxic crisis or storm; E78.00 Pure hypercholesterolemia, unspecified; K21.9 Gastro-esophageal reflux disease without esophagitis; M54.9 Dorsalgia, unspecified; E03.9 Hypothyroidism, unspecified; F41.9 Anxiety disorder, unspecified; F32.9 Major depressive disorder, single episode, unspecified; R91.8 Other nonspecific abnormal finding of lung field; J30.9 Allergic rhinitis, unspecified; R21 Rash and other nonspecific skin eruption; Z85.3 Personal history of malignant neoplasm of breast; Z90.10 Acquired absence of unspecified breast and nipple; Z88.6 Allergy status to analgesic agent; Z88.1 Allergy status to other antibiotic agents; Z88.2 Allergy status to sulfonamides
CPT/HCPCS: 36415; 73560; 76937; 80053; 82962; 83540; 83605; 84145; 84439; 84443; 85025; 87324; 87449; 94760; 94761